=== PATIENT | female | born 1955 | race Caucasian/White ===

== ENCOUNTER → 2024-01-28 11:37 | Outpatient (REF) | payer MEDICARE, SELFPAY | LOC: PAVMRI 11:37 | PROVIDERS: ATTENDING PHYSICIAN Internal Medicine Endocrinology, Diabetes & Metabolism; FAMILY PHYSICIAN Family Medicine | DX: E22.1 Hyperprolactinemia (principal); E23.7 Disorder of pituitary gland, unspecified | CPT/HCPCS: 70553; A9575 ==

== ENCOUNTER 2024-09-12 12:31 | Inpatient (IN) | payer MEDICARE, SELFPAY ==
[2024-09-12] VITALS (17 sets, daily range): BP systolic 87–147; BP diastolic 29–58; BMI 28.6; BMI 27.5
--- NOTE | 2024-09-12 08:58 | ED.GENMED ---
History of Present Illness
<Mirta Bradshaw, HEALTH CARE SPECIALIST - Last Filed: 09/13/24 11:42>
General
Chief Complaint: Change in Mental Status
Source: patient, spouse and ambulance crew
Exam Limitations: altered mental status
Time Seen by Provider: 09/12/24 08:57
Nursing documentation reviewed up to this point in time: agreed with
History of Present Illness
History of Present Illness:
69 yo female arrives via EMS, lethargic, confused. Per , went to bed 'fine' last night, this a.m. 6:30 tried to wake her unsuccessfully so he let her sleep, went back a little later, she was difficult to arouse nd she was breathing
faster than usual, felt warm, was confused so her called EMS. She responds to name, follows commands weakly, states 'I don't know' asked if she knows where she is and month, year 'no'
Pt had Covid vaccine within past 48 hours. Had Flu vaccine earlier
EKG sinus tachycardia,
Past History
<Mirta Bradshaw, HEALTH CARE SPECIALIST - Last Filed: 09/13/24 11:42>
Past History
ED Past Medical History: HTN, Hypercholesterolemia and NIDDM
ED Past Surgical History: Other (Skin excision)
Social History
Tobacco: Smoker
Alcohol: None
Drug: None
Personal:
Living: with family
Employment: Retired
Family History
Family History: Other (Noncontributory)
Review of Systems
<Mirta Bradshaw, HEALTH CARE SPECIALIST - Last Filed: 09/13/24 11:42>
Review of Systems
Allergies reviewed?: Yes
All Other Systems: ROS reviewed and negative except as documented in HPI and ROS
Constitutional: Reports fever
EENT: Reports no symptoms
Respiratory: Reports no symptoms
Cardiac: Reports no symptoms
ABD/GI: Reports vomiting; Denies abdominal pain
: Reports incontinence
Musculoskeletal: Reports no symptoms; Denies edema
Skin: Reports no symptoms
Neurological: Reports weakness
Phy Exam
<Mirta Bradshaw, HEALTH CARE SPECIALIST - Last Filed: 09/13/24 11:42>
Physical Exam
Physical Exam:
GENERAL: No acute distress. A&Ox3.
CONSTITUTIONAL: Afebrile.
EYES: PERRL, conjunctivae normal
Neck: Supple
ENMT: dry mucus membranes,
RESPIRATORY: Regular respirations, nonlabored, lungs clear.
CARDIOVASCULAR: Regular rate and rhythm, no murmurs, no rubs.
GI: Soft, nontender, normal BS
MUSCULOSKELETAL: Moves with ease. Well perfused. No edema
SKIN: Warm, dry, pink
PSYCH: Depressed mood and affect. Well kept, interactive and appropriate
NEUROLOGIC: Awake, lethargic. Follows commands weakly. Strength equal throughout 2/5. No focal neurological deficits
Sepsis
<Mirta Bradshaw, HEALTH CARE SPECIALIST - Last Filed: 09/13/24 11:42>
Sepsis Screening
Sepsis Assessment: Sepsis
Sepsis Screen
Sepsis Screen: Sepsis
Date: 09/13/24
Time: 11:42
Course
<Mirta Bradshaw, HEALTH CARE SPECIALIST - Last Filed: 09/13/24 11:42>
Orders/Labs/Results
Orders:
Orders
09/12/24 09:00
Straight cath- Treatment ONCE
09/12/24 09:01
Electrocardiogram (*1) Urgent
Reason for Study: Other
Other Reason for Exam: sepsis
EKG- Treatment ONCE
IV Insert/Care/Rem.- Treatment PRN
CR Chest Portable - 1 View Urgent
Comment:
Reason For Exam: change in mental state
Reason Study Needs to be Portable: Patient Unstable
09/12/24 09:08
Complete Blood Count/With Diff Urgent
Comprehensive Metabolic Panel Urgent
Lactic Acid Q4H
Comment: CANCEL 2nd LACTIC ACID IF 1st LACTIC ACID IS LESS THAN 2
Magnesium Urgent
Comment: ADDON
Blood Culture Q30M
FRANCIA Source: Blood/Venous
Specimen Description:
Acetaminophen [Tylenol/Feverall] 650 mg RECTAL NOW STA
09/12/24 09:09
0.9% Sodium Chloride 1000 ml [Nss] 1,600 ml IV NOW STA
09/12/24 09:12
Free T4 Urgent
TSH Reflex To Free T4 Urgent
Blood Culture Q30M
FRANCIA Source: Blood/Venous
Specimen Description:
09/12/24 09:35
COVID-19 Antigen Urgent
Source: Nasal Swab
Urinalysis Reflex To Culture Urgent
Date Specimen was Collected: 09/12/24
Time Specimen was Collected: 09:30
Influenza A+B Rapid Molecular Urgent
FRANCIA Source: Nasal Swab
Specimen Description:
09/12/24 09:42
Add On- LAB Urgent
Tests Added?: magnesium
09/12/24 10:19
0.9% Sodium Chloride 1000 ml [Nss] 1,000 ml IV BOLUS
Piperacillin/Tazo 4.5 Gram [Zosyn] 4.5 gram in 100 ml IV NOW
09/12/24 10:23
CT Chest W/o Iv Contrast Urgent
Comment:
Reason For Exam: febrile, tachypneic
09/12/24 10:55
Vancomycin [Vancocin] 2,000 mg 0.9% Sodium Chloride 500 ml [Nss] 500 ml IV NOW
09/12/24 12:10
Admit/Transfer Patient As Directed
Co-Sign Provider:
Level of Care: Inpatient admission
Assign to:: IMU- Intermediate Care
Physician / Group: Dr Thayer
Diagnosis: Sepsis
Reason for Hospitalization: Patient presented with altered mental status and fever and nausea vomiting and
diarrhea. Found to be hypotensive and increased lactate.
Expected length of stay greater than two midnights?: Yes
ELOS- Estimated Length of Stay in days: 2
I certify the patient meets the requirements for IP care: Yes
PRN Pain Medication Management As Directed
May give lesser potent ordered pain med per pt: Yes
preference::
Protocol:: Medication orders for pain may be administered in a
manner that supports deferring to patient preference
when the pt is:
- Requesting an ordered lesser potent pain medication.
Least to most potent pain medications are defined
as: acetaminophen < NSAID < tramadol < opioids
(morphine, oxycodone, hydromorphone).
- Requesting a lesser dose of the same medication IF
ORDERED.
- Requesting a less intrusive route of administration
if both routes are prescribed by the provider (PO <
IV).
09/12/24 12:13
Code Status As Directed
Resuscitation Status: Full Code
09/12/24 12:16
STOOL [C difficile Antigen & Toxins] Routine
FRANCIA Source: Feces/Stool
Specimen Description:
Stool Culture Routine
FRANCIA Source: Feces/Stool
Specimen Description:
Stool For WBC Routine
FRANCIA Source: Feces/Stool
Specimen Description:
0.9% Sodium Chloride 1000 ml [Nss] 1,000 ml IV BOLUS
09/12/24 12:17
CT Abd/pelvis Wo Iv Cont Routine
Comment:
Reason For Exam: n/v/d/abd pain
STOOL [C difficile Antigen & Toxins] Urgent
FRANCIA Source: Feces/Stool
Specimen Description:
Date Specimen was Collected: 09/12/24
Time Specimen was Collected: 12:16
Stool Culture Urgent
FRANCIA Source: Feces/Stool
Specimen Description:
Date Specimen was Collected: 09/12/24
Time Specimen was Collected: 12:16
11/09/24 12:56
Lactic Acid Q4H
Comment: CANCEL 2nd LACTIC ACID IF 1st LACTIC ACID IS LESS THAN 2
09/12/24 13:08
Docusate W/Senna [Senokot-S] 1 tablet PO BIDPRN PRN
Ipratropium/Albuterol Sulfate [Duoneb] 3 ml INH R Q4HPRN PRN
Lactated Ringers [Lr] 1,000 ml IV 100 mls/hr
Ondansetron Injectable [Zofran] 4 mg IV Q6HPRN PRN
09/12/24 13:08
Activity As Directed
Activity Level: Out of Bed-Early Mobility
Intake/ Output As Directed
Frequency: Per unit guidelines
Vital Signs As Directed
Frequency: Per unit guidelines
Weight As Directed
Frequency: Daily
DX Deep Vein Thrombosis Video Routine
09/12/24 14:00
MetroNIDAZOLE 500 MG/100 ML [Flagyl 500 mg] 100 ml IV Q8H
09/12/24 16:00
CefTRIAXone [Rocephin] 1,000 mg IV Q24H
09/12/24 18:00
Enoxaparin Sodium [Lovenox] 40 mg SC QPM
09/13/24 04:19
Complete Blood Count/With Diff IN AM
Comprehensive Metabolic Panel IN AM
Magnesium IN AM
TSH IN AM
Abnormal Lab Results
09/12/24 09/12/24
09:08 09:12
RBC 3.58 L 10^6/uL
(4.20-5.40)
MCV 105.3 H fL
(81.0-99.0)
MCH 37.7 H pg
(27.0-31.0)
MPV 10.8 H fL
(7.4-10.4)
Absolute Monos (auto) 1.1 H 10^3/uL
(0.1-0.6)
Monocytes % 10.8 H %
(1.7-9.3)
Chloride 97 L mmol/L
(98-107)
BUN 20 H mg/dl
(7-17)
Glucose 124 H mg/dl
(70-99)
Lactic Acid 3.9 H mmol/L
(0.7-2.0)
TSH (Reflex) 0.07 L uIU/ml
(0.47-4.68)
Free T4 0.70 L ng/dl
(0.78-2.19)
09/12/24 09:08
09/12/24 09:08
Vital Signs
Initial and Last Documented VS:
Initial Vital Signs
Temp Pulse Resp BP Pulse Ox
101.5 F H 108 34 131/52 95
09/12/24 09:03 09/12/24 09:03 09/12/24 09:03 09/12/24 09:03 09/12/24 09:03
Last Documented Vital Signs
Temp Pulse Resp BP Pulse Ox
98.5 F 85 20 121/65 97
09/13/24 08:20 09/13/24 10:03 09/13/24 10:03 09/13/24 10:03 09/13/24 10:03
<Ivis Saba MD - Last Filed: 09/12/24 10:27>
Orders/Labs/Results
Orders:
Orders
09/12/24 09:00
Straight cath- Treatment ONCE
09/12/24 09:01
Electrocardiogram (*1) Urgent
Reason for Study: Other
Other Reason for Exam: sepsis
EKG- Treatment ONCE
IV Insert/Care/Rem.- Treatment PRN
CR Chest Portable - 1 View Urgent
Comment:
Reason For Exam: change in mental state
Reason Study Needs to be Portable: Patient Unstable
09/12/24 09:08
Complete Blood Count/With Diff Urgent
Comprehensive Metabolic Panel Urgent
Lactic Acid Q4H
Comment: CANCEL 2nd LACTIC ACID IF 1st LACTIC ACID IS LESS THAN 2
Magnesium Urgent
Comment: ADDON
Blood Culture Q30M
FRANCIA Source: Blood/Venous
Specimen Description:
Acetaminophen [Tylenol/Feverall] 650 mg RECTAL NOW STA
09/12/24 09:09
0.9% Sodium Chloride 1000 ml [Nss] 1,600 ml IV NOW STA
09/12/24 09:12
Free T4 Urgent
TSH Reflex To Free T4 Urgent
Blood Culture Q30M
FRANCIA Source: Blood/Venous
Specimen Description:
09/12/24 09:35
COVID-19 Antigen Urgent
Source: Nasal Swab
Urinalysis Reflex To Culture Urgent
Date Specimen was Collected: 09/12/24
Time Specimen was Collected: 09:30
Influenza A+B Rapid Molecular Urgent
FRANCIA Source: Nasal Swab
Specimen Description:
09/12/24 09:42
Add On- LAB Urgent
Tests Added?: magnesium
09/12/24 10:19
0.9% Sodium Chloride 1000 ml [Nss] 1,000 ml IV BOLUS
Piperacillin/Tazo 4.5 Gram [Zosyn] 4.5 gram in 100 ml IV NOW
09/12/24 10:23
CT Chest W/o Iv Contrast Urgent
Comment:
Reason For Exam: febrile, tachypneic
09/12/24 10:55
Vancomycin [Vancocin] 2,000 mg 0.9% Sodium Chloride 500 ml [Nss] 500 ml IV NOW
09/12/24 12:10
Admit/Transfer Patient As Directed
Co-Sign Provider:
Level of Care: Inpatient admission
Assign to:: IMU- Intermediate Care
Physician / Group: Dr Thayer
Diagnosis: Sepsis
Reason for Hospitalization: Patient presented with altered mental status and fever and nausea vomiting and
diarrhea. Found to be hypotensive and increased lactate.
Expected length of stay greater than two midnights?: Yes
ELOS- Estimated Length of Stay in days: 2
I certify the patient meets the requirements for IP care: Yes
PRN Pain Medication Management As Directed
May give lesser potent ordered pain med per pt: Yes
preference::
Protocol:: Medication orders for pain may be administered in a
manner that supports deferring to patient preference
when the pt is:
- Requesting an ordered lesser potent pain medication.
Least to most potent pain medications are defined
as: acetaminophen < NSAID < tramadol < opioids
(morphine, oxycodone, hydromorphone).
- Requesting a lesser dose of the same medication IF
ORDERED.
- Requesting a less intrusive route of administration
if both routes are prescribed by the provider (PO <
IV).
09/12/24 12:13
Code Status As Directed
Resuscitation Status: Full Code
09/12/24 12:16
STOOL [C difficile Antigen & Toxins] Routine
FRANCIA Source: Feces/Stool
Specimen Description:
Stool Culture Routine
FRANCIA Source: Feces/Stool
Specimen Description:
Stool For WBC Routine
FRANCIA Source: Feces/Stool
Specimen Description:
0.9% Sodium Chloride 1000 ml [Nss] 1,000 ml IV BOLUS
09/12/24 12:17
CT Abd/pelvis Wo Iv Cont Routine
Comment:
Reason For Exam: n/v/d/abd pain
STOOL [C difficile Antigen & Toxins] Urgent
FRANCIA Source: Feces/Stool
Specimen Description:
Date Specimen was Collected: 09/12/24
Time Specimen was Collected: 12:16
Stool Culture Urgent
FRANCIA Source: Feces/Stool
Specimen Description:
Date Specimen was Collected: 09/12/24
Time Specimen was Collected: 12:16
09/12/24 12:56
Lactic Acid Q4H
Comment: CANCEL 2nd LACTIC ACID IF 1st LACTIC ACID IS LESS THAN 2
09/12/24 13:08
Docusate W/Senna [Senokot-S] 1 tablet PO BIDPRN PRN
Ipratropium/Albuterol Sulfate [Duoneb] 3 ml INH R Q4HPRN PRN
Lactated Ringers [Lr] 1,000 ml IV 100 mls/hr
Ondansetron Injectable [Zofran] 4 mg IV Q6HPRN PRN
09/12/24 13:08
Activity As Directed
Activity Level: Out of Bed-Early Mobility
Intake/ Output As Directed
Frequency: Per unit guidelines
Vital Signs As Directed
Frequency: Per unit guidelines
Weight As Directed
Frequency: Daily
DX Deep Vein Thrombosis Video Routine
09/12/24 14:00
MetroNIDAZOLE 500 MG/100 ML [Flagyl 500 mg] 100 ml IV Q8H
09/12/24 16:00
CefTRIAXone [Rocephin] 1,000 mg IV Q24H
09/12/24 18:00
Enoxaparin Sodium [Lovenox] 40 mg SC QPM
09/13/24 04:19
Complete Blood Count/With Diff IN AM
Comprehensive Metabolic Panel IN AM
Magnesium IN AM
TSH IN AM
Abnormal Lab Results
09/12/24 09/12/24
09:08 09:12
RBC 3.58 L 10^6/uL
(4.20-5.40)
MCV 105.3 H fL
(81.0-99.0)
MCH 37.7 H pg
(27.0-31.0)
MPV 10.8 H fL
(7.4-10.4)
Absolute Monos (auto) 1.1 H 10^3/uL
(0.1-0.6)
Monocytes % 10.8 H %
(1.7-9.3)
Chloride 97 L mmol/L
(98-107)
BUN 20 H mg/dl
(7-17)
Glucose 124 H mg/dl
(70-99)
Lactic Acid 3.9 H mmol/L
(0.7-2.0)
TSH (Reflex) 0.07 L uIU/ml
(0.47-4.68)
Free T4 0.70 L ng/dl
(0.78-2.19)
09/12/24 09:08
09/12/24 09:08
Vital Signs
Initial and Last Documented VS:
Initial Vital Signs
Temp Pulse Resp BP Pulse Ox
101.5 F H 108 34 131/52 95
09/12/24 09:03 09/12/24 09:03 09/12/24 09:03 09/12/24 09:03 09/12/24 09:03
Last Documented Vital Signs
Temp Pulse Resp BP Pulse Ox
98.5 F 85 20 121/65 97
09/13/24 08:20 09/13/24 10:03 09/13/24 10:03 09/13/24 10:03 09/13/24 10:03
<Mirta Bradshaw, HEALTH CARE SPECIALIST - Last Filed: 09/13/24 11:42>
MDM/Problems Addressed
Differential Diagnosis Includes:
Viral URI, Covid, Flu, UTI, PNA, meningitis
MDM/Problems Addressed:
69 yo female arrives via EMS, lethargic, confused. Reportedly went to bed 'fine' last night, this a.m. 6:30 tried to wake her unsuccessfully so he let her sleep, went back a little later, she was difficult to arouse, and she was breathing
faster than usual, felt warm, was confused so her called EMS. She responds to name, follows commands weakly, states 'I don't know' asked if she knows where she is and month, year 'no'
Pt had Covid vaccine within past 48 hours. Had Flu vaccine earlier
Temp 102.1 R RR 30 Pulse ox 96% RA
EKG: Sinus tachycardia at 102 with prolonged QTc at 573. No medications to explain. Will check magnesium level
CBC: No clinically significant abnormality
CMP: No clinically significant abnormality
Chest xray radiology report read: NAD
U/A neg
TSH low 0.07
10:20 a.m.
Pt becoming more responsive, knows she in [facility] Denies headache, neck pain, Neck supple no meningeal signs.
Lactic elevated at 3.9
BP 88/ MAP 50, HR 98 RR 28 Pulse ox 96% RA, Temp 99.7 po
Had 1800 NSS in, another liter hung wide open.
Antibiotics ordered
No source of infection yet.
Dr. Saba in to examine pt. Agrees with chest CT
11:10 a.m.
BP 90/35 RR 21 HR 85 Pulse ox 98% RA
Chest CT: IMPRESSION:
Mild bibasilar subsegmental atelectasis. No focal parenchymal consolidation to suggest pneumonia.
Pulmonary interstitium at at least top normal. Cannot exclude mild interstitial pneumonitis or edema.
Heart likely mildly enlarged. Small volume coronary artery calcifications.
Small to moderate size hiatal hernia.
Plan: Admit
Acute change in mental state, hyperthyroid, elevated lactic, bacteremia/sepsis unknown source
Hospitalist notified of admission.
2 large diarrhea stools, stool culture and C. difficile culture pending
<Mirta Bradshaw, HEALTH CARE SPECIALIST - Last Filed: 09/13/24 11:42>
*Critical Care Note
Total Time (30-74mins, 75-104mins- exclusive of procedures): Not Applicable
ED Attending Note
<Mirta Bradshaw NP - Last Filed: 09/13/24 11:42>
-
Portions of this chart may have been created with voice recognition software.� Occasional wrong word or��sound alike� substitutions may have occurred due to the inherent limitations of voice recognition software.
<Ivis Saba MD - Last Filed: 09/12/24 10:27>
ED Attending Note
Patient seen and examined by attending physician: Yes
I performed the substantive portion of visit, reviewed & personally made and approve the management plan that is documented in note by myself or SELINA.: Yes
ED Attending Note:
Patient arrives for generalized weakness and lethargy. Found to have a fever on arrival. Symptoms started this morning. Patient received 1 L of fluid and 650 mg of Tylenol before my evaluation. Patient is now awake but appears very tired and is
yawning and shutting her eyes. She appears flushed. She is hypotensive. Temperature has gone down down to 99.7. Patient has mild tachypnea. Abdomen is soft and nontender. Patient has no headache and no meningismus on exam. Source of infection
is unknown at this time. Patient recently had a COVID immunization about 48 hours ago. Chest x-ray shows no obvious pneumonia. Urine appears normal. Given patient has a fever, hypotension and elevated lactic acid, we are concern for acute sepsis
and will treat her with wide spectrum antibiotics.
Discharge Plan
Departure
Patient Disposition: Admit
Date of Disposition: 09/12/24
Time of Disposition: 11:16
Admit to: ICU
Presentation/result/management discussed w/ accepting MD/DO: Hospitalist
Condition: Serious
Covid-19: Negative COVID-19
Discharge Problem:
Sepsis, Altered mental state, Diarrhea
Interventions
Interventions:
*Risk Screen - Suicide Last Done: 09/12/24 13:26
*General Assessment Last Done: 09/12/24 09:03
*Neglect/Abuse Screening Last Done: 09/12/24 09:03
ED- Fall Risk Assessment Last Done: 09/12/24 09:48
*ED COVID-19 Vaccine History Last Done: 09/12/24 09:03
*Nursing Disposition Last Done: 09/12/24 13:26
ED- Pulmonary Assessment Last Done: 09/12/24 09:48
ED-Psychological Assessment Last Done: 09/12/24 13:26
ED- Neurological Assessment Last Done: 09/12/24 09:48
ED- Cardiac Assessment Last Done: 09/12/24 09:48
ED Swallowing Screen Last Done: 09/12/24 09:48
Discharge Date and Time
Discharge Date/Time: 09/12/24 13:15
[2024-09-12 09:20] LABS: % Basophils 1.4 % (0-2); % Eosinophils 0.1 % (0-6); % Immature Granulocytes 0.3 % (0-0.5); % Lymphocytes 23.4 % (20.5-51.1); % Monocytes 10.8 % (1.7-9.3); Absolute Basophils 0.1 10^3/uL (0-0.2); Absolute Lymphocytes 2.3 10^3/uL (1.2-3.4); Absolute Monocytes 1.1 10^3/uL (0.1-0.6); Absolute Neutrophils 6.2 10^3/uL (1.4-6.5); Hematocrit 37.7 % (37.0-47.0); Hemoglobin 13.5 g/dL (12.0-16.0); Mean Corp Hgb Conc. 35.8 g/dL (33.0-37.0); Mean Corpuscular Hgb 37.7 pg (27.0-31.0); Mean Corpuscular Volume 105.3 fL (81.0-99.0); Mean Platelet Volume 10.8 fL (7.4-10.4); Nucleated Red Blood Cells % 0 %; Platelet Count 261 10^3/uL (130-400); Red Blood Cell Count 3.58 10^6/uL (4.20-5.40); White Blood Cell Count 9.7 10^3/uL (4.8-10.8)
[2024-09-12 09:28] LABS: Lactic Acid 3.9 mmol/L (0.7-2.0)
[2024-09-12 09:30] LABS: ALT (SGPT) 23 U/L (0-35); AST (SGOT) 35 U/L (14-36); Albumin 4.2 g/dl (3.5-5.0); Alkaline Phosphatase 66 U/L (38-126); Blood Urea Nitrogen 20 mg/dl (7-17); Calcium 8.7 mg/dl (8.4-10.2); Carbon Dioxide 25 mmol/L (22-30); Chloride 97 mmol/L (98-107); Estimated Creatinine Clearance 57 ml/min; Glucose 124 mg/dl (70-99); Potassium 4.1 mmol/L (3.5-5.1); Sodium 136 mmol/L (135-145); Total Bilirubin 0.7 mg/dl (0.2-1.3); Total Protein 6.8 g/dl (6.3-8.2); eGFR > 60.00
[2024-09-12] MEDS: NSS 1600 ML IV (09:31)
[2024-09-12] MEDS: TYLENOL/FEVERALL 650 MG RECTAL (09:31)
[2024-09-12 09:47] LABS: Urine Albumin Negative (Neg - Trace); Urine Bilirubin Negative (Negative); Urine Character Clear (Clear); Urine Color Yellow; Urine Glucose Negative (Negative); Urine Ketone Negative (Negative); Urine Leukocyte Negative (Negative); Urine Nitrite Negative (Negative); Urine Occult Blood Negative (Negative); Urine Urobilinogen Negative (Neg - 1+)
[2024-09-12 10:11] LABS: COVID-19 Antigen Negative (Negative)
[2024-09-12 10:23] LABS: TSH Reflex To Free T4 0.07 uIU/ml (0.47-4.68)
[2024-09-12] MEDS: NSS 1000 IV ×2 (10:48→12:23)
[2024-09-12] MEDS: ZOSYN 100 IV (10:49)
[2024-09-12] MEDS: VANCOCIN 540 MG IV (11:42)
--- NOTE | 2024-09-12 12:22 | HPS.HSE ---
Family Physician
-
Family Physician: Kavitha Escalera
Chief Complaint
-
Mental status changes
History of Present Illness
Patient 69 years old female history of hypertension, hyperlipidemia, diabetes mellitus, adrenal insufficiency, presented to the hospital with mental status changes. Patient's noticed that she was not herself this morning around 6 AM and she
was confused and she was also labored breathing. Patient also experienced nausea and multiple episodes of vomiting and watery diarrhea as well as abdominal discomfort. She was noted to be hypotensive 87/29 in the ER and she was given septic bolus
with around 2600 cc of normal saline by the time of my evaluation and blood pressure coming up to 110/35. Patient mentation is also improving by the time of my evaluation and although she is lethargic she is awake and able to answer questions
appropriately. Patient denies any cough or shortness of breath or chest pain. Patient denies any dysuria urgency or frequency. Patient denies any skin rash. Patient is on chronic steroid use and thyroid replacement. Her lactate noticed to be
3.9. CT of the chest no focal consolidation but cannot exclude mild interstitial pneumonitis or edema. Small to moderate-sized hiatal hernia. She was referred to hospitalist service for further evaluation.
Medical History
Past Medical History
Past Medical History: Reports HTN, Hypercholesterolemia and NIDDM
Past Surgical History: Reports Other
Additional Past Surgical History:
I+D of perianal abscess 01/2019 - Dr. Ulrich.
Social History
Tobacco: Non-smoker
Alcohol: None
Drug: None
Family History
Family History: Not pertinent
Allergies / Home Medications
Allergies reflects when Allergies were last updated in [employer].
Home Medications with original date entered in [employer]
Allergy/Medication List:
Allergies
Allergy/AdvReac Type Severity Reaction Status Date / Time
No Known Allergies Allergy Verified 09/12/24 09:02
Home Medications
multivitamin (One Daily Essential tablet) 1 ea PO DAILY Supplement 01/24/19
metoprolol succinate 25 mg tablet,extended release 24 hr 25 mg PO DAILY Blood pressure 05/26/22
furosemide 20 mg tablet 20 mg PO DAILY Fluid retention/Swelling 03/04/23
hydrocortisone 10 mg tablet 20 mg PO DAILY Anti-inflammatory 03/04/23
rosuvastatin 5 mg tablet (Crestor) 5 mg PO QPM 09/12/24
Review of Systems
-
A 12 point ROS was completed and negative except as noted: Yes
Physical Exam
Vital Signs
Vital Signs
Temp Pulse Resp BP Pulse Ox
99.7 F 88 23 110/35 97
09/12/24 10:31 09/12/24 11:45 09/12/24 11:45 09/12/24 11:45 09/12/24 11:45
Physical exam:
General: Acutely ill. Toxic appearance
HEENT: Normocephalic, Atraumatic and Dry Mucous Membranes
Respiratory: Clear to Auscultation; Negative Wheezes, Rales or Rhonchi
Cardiac: Regular Rhythm and S1/S2
GI: Soft, hyperactive bowel sounds, tender and Nondistended
Musculoskeletal: No Clubbing, No Cyanosis and mild trace edema
Neuro: Lethargic, does move spontaneously all 4 extremities although generalized weakness present, no sensory deficits.
Psych: Calm, normal judgment and insight.
Physical Exam
General: Other
Laboratory Results
-
09/12/24 09:08
09/12/24 09:08
Laboratory Results
Lactic Acid 3.9 mmol/L (0.7-2.0) H 09/12/24 09:08
Total Bilirubin 0.7 mg/dl (0.2-1.3) 09/12/24 09:08
AST 35 U/L (14-36) 09/12/24 09:08
ALT 23 U/L (0-35) 09/12/24 09:08
Alkaline Phosphatase 66 U/L (38-126) 09/12/24 09:08
Data Reviewed
-
Diagnostic Radiology: Image Personally Visualized and interpreted
CT Scan: Image Personally Visualized and interpreted
Lab Data: Labs Reviewed by me
Impression/Plan
-
IMPRESSION:
Patient is 69 years old female with history of hypertension, hyperlipidemia, diabetes mellitus, adrenal insufficiency, presented to the hospital with severe sepsis suspected GI etiology such as gastro-enterocolitis infectious etiology. She also has
some element of adrenal crisis. She is at high risk of increased morbidity mortality and she is currently critically ill so she will need to be treated and monitored accordingly as inpatient in the hospital.
PLAN:
Sepsis:
Severe sepsis unclear source, suspected GI etiology.
Evidence of sepsis with toxic appearance, fever more than 38.3 Celsius, tachycardia >90, tachypnea >20, and source of infection not entirely identified but suspected likely GI etiology.
Meets criteria for severe sepsis and associated organ dysfunction of hypotension, increased lactate and metabolic encephalopathy due to sepsis.
Lactic acid of 3.9
Follow-up blood cultures
CXR no acute chest pathology
U/A no acute abnormalities
Seen CT scan of the chest and chest x-ray and no acute chest pathology but agree with nonspecific mild interstitial changes.
Obtain CT scan of the abdomen
Obtain stool studies
Obtain C. difficile
Continue on broad-spectrum antibiotics but will switch to IV Rocephin and Flagyl
Will give another bolus of normal saline 1 L and will continue with lactated Morrill
Will start her on IV PPI
We will start her on IV antiemetics as needed
Continue monitor WBC count and temperature curve and trend lactate.
Toxic metabolic encephalopathy:
Suspected due to sepsis
Monitor mental status and behavior
Hold off on head images for now and reevaluate
Adrenal crisis:
Stress doses of IV steroids, hydrocortisone 100 mg IV every 8 hours
Ideally we will check cortisol levels but not accurate since she is taking steroids
Hypothyroidism:
Thyroid function levels also inaccurate but will reevaluate in a.m.
Alcohol use disorder:
As per she drinks a bottle of alcohol every day
As per patient she does not withdrawal
Will have her MSA protocol
Will also start her on thiamine folate and benzos as needed
Nicotine use disorder:
Start nicotine patch
Hypertension:
Hold off on antihypertensives for now and reevaluate once hemodynamically stable
Hyperlipidemia:
Hold off on statins while hypotensive and repeat LFTs in a.m.
Diabetes mellitus:
Insulin sliding scale every 6 hours while NPO and while on steroids
Monitor blood sugars closely
DVT prophylaxis:
Lovenox
CODE STATUS:
Full code discussed with patient and at bedside
Total Critical Care Time 65 minutes. I was immediately available to the patient and staff. I personally examined, reviewed labs, diagnostic images/reports, interpretations, treatment plans, discussed patient care with other providers and family
or caregivers (if patient is unable to make decisions), entered orders as appropriate and documented the medical record.
[2024-09-12 13:21] LABS: Lactic Acid 2.3 mmol/L (0.7-2.0)
[2024-09-12] MEDS: THIAMINE INJECTION 200 MG IV ×2 (14:06→20:56)
[2024-09-12] MEDS: FLAGYL 500 MG 100 IV ×2 (14:07→21:01)
[2024-09-12] MEDS: SOLU-CORTEF 100 MG IV ×2 (14:07→20:56)
[2024-09-12] MEDS: PROTONIX IV 40 MG IV (14:08)
[2024-09-12] MEDS: LR 1000 IV ×2 (14:08→23:51)
[2024-09-12] MEDS: NSS (PRESERVATIVE FREE) 10 ML IV (14:08)
[2024-09-12] MEDS: FOLVITE PO (14:21)
[2024-09-12 16:02] LABS: Magnesium 1.9 mg/dl (1.6-2.3)
[2024-09-12] MEDS: STERILE WATER FOR INJECTION 10 ML IV (16:26)
[2024-09-12] MEDS: ROCEPHIN 1000 MG IV (16:26)
[2024-09-12] MEDS: LOVENOX 40 MG SC (18:25)
[2024-09-12] MEDS: NOVOLOG FLEXPEN-MODERATE RESISTANCE SC (18:26)
[2024-09-12 18:37] LABS: Glucose - Point of Care 142 mg/dl (70-99)
[2024-09-12] MEDS: NOVOLOG FLEXPEN-MODERATE RESISTANCE 1 UNITS SC (23:50)
[2024-09-13] VITALS (15 sets, daily range): BP systolic 110–166; BP diastolic 57–96; PULSE 90–91; O2SAT 95–96; BMI 27.7
[2024-09-13 00:02] LABS: Glucose - Point of Care 157 mg/dl (70-99)
[2024-09-13 04:39] LABS: Hematocrit 33.8 % (37.0-47.0); Hemoglobin 11.8 g/dL (12.0-16.0); Mean Corp Hgb Conc. 34.9 g/dL (33.0-37.0); Mean Corpuscular Hgb 37.7 pg (27.0-31.0); Mean Platelet Volume 10.8 fL (7.4-10.4); Platelet Count 203 10^3/uL (130-400); Red Blood Cell Count 3.13 10^6/uL (4.20-5.40); Red Cell Dist. Width 12.8 % (11.5-14.5); White Blood Cell Count 11.2 10^3/uL (4.8-10.8)
[2024-09-13 04:40] LABS: ALT (SGPT) 21 U/L (0-35); AST (SGOT) 28 U/L (14-36); Albumin 3.2 g/dl (3.5-5.0); Alkaline Phosphatase 65 U/L (38-126); Blood Urea Nitrogen 11 mg/dl (7-17); Carbon Dioxide 21 mmol/L (22-30); Chloride 111 mmol/L (98-107); Direct Bilirubin 0.1 mg/dl (0.0-0.4); Estimated Creatinine Clearance 87 ml/min; Glucose 143 mg/dl (70-99); Magnesium 1.9 mg/dl (1.6-2.3); Sodium 142 mmol/L (135-145); Total Bilirubin 0.5 mg/dl (0.2-1.3); Total Protein 5.7 g/dl (6.3-8.2); eGFR > 60.00
[2024-09-13 04:41] LABS: Lactic Acid 1.3 mmol/L (0.7-2.0)
[2024-09-13] MEDS: FLAGYL 500 MG 100 IV ×3 (05:04→21:12)
[2024-09-13] MEDS: SOLU-CORTEF 100 MG IV (05:04)
[2024-09-13 05:11] LABS: TSH 0.03 uIU/ml (0.47-4.68)
--- NOTE | 2024-09-13 05:44 | PTCARENOTE ---
Assumed care of Pt at shift change; Resting comfortably in bed; AAO x 2, disoriented to time; Afebrile; Denies pain; Denies nausea; NPO; Several loose BM's; Noted rash in lower abdominal/groin area - Calazime applied. Will continue to monitor
and assess
[2024-09-13] MEDS: NOVOLOG FLEXPEN-MODERATE RESISTANCE 1 UNITS SC ×3 (06:04→17:52)
[2024-09-13 06:13] LABS: Glucose - Point of Care 160 mg/dl (70-99)
--- NOTE | 2024-09-13 08:02 | W.PN.HOSP.TC ---
Today's Communication/Plan
-
IV antibiotics. Start diet.
Assessment / Plan
Assessment / Plan
Physical exam:
General: Acutely ill. Nontoxic appearance today.
HEENT: Normocephalic, Atraumatic and Moist Mucous Membranes
Respiratory: Clear to Auscultation; Negative Wheezes, Rales or Rhonchi
Cardiac: Regular Rhythm and S1/S2, Systolic murmur present
GI: Soft, Nontender and Nondistended
Musculoskeletal: No Clubbing, No Cyanosis and No Edema
Neuro: Awake, Alert and Oriented
Psych: Calm
A/P:
Sepsis due to infectious enteritis:
Continue antibiotics, IV Rocephin and Flagyl
C. difficile negative and stool culture pending
Seen CT scan of the abdomen consistent with enteritis.
Start clear liquid diet and advance as tolerated today to BRAT diet
Continue IV fluids but stop later today if remains hemodynamically stable
Lactate down to normal, 1.3
Follow-up blood cultures
PT OT eval
Toxic metabolic encephalopathy:
Improving
Adrenal crisis:
Improved
Stress doses of IV steroids, hydrocortisone 100 mg IV every 8 hours--> decreased to 50 mg every 8 hours today and will switch to oral tomorrow
Central hypothyroidism:
Restart levothyroxine 75 mcg p.o. daily
Alcohol use disorder:
MSA protocol
Nicotine use disorder:
Continue nicotine patch
Hypertension:
Will restart beta-blockers today with holding parameters
Hyperlipidemia:
Restart statins today
LFTs normal
Hyperglycemia likely due to stress and steroids (no diabetes mellitus):
Hemoglobin A1c 4.8
Continue insulin sliding scale for today and might be able to discontinue once we switch back to her oral steroids
DVT prophylaxis:
Lovenox
CODE STATUS:
Full code
Anticipated Discharge: 24 - 48 hours
Subjective/Interval History
-
Date of Service: September 13, 2024
Patient feels better overall today. More alert. No nausea or vomiting. Less diarrhea. No abdominal pain. Afebrile. Blood pressure improved.
Objective Data
-
Labs:
Laboratory Results
09/13/24
04:19
WBC 11.2 H
Hgb 11.8 L
Hct 33.8 L
Plt Count 203 D
Sodium 142
Potassium 4.0
Chloride 111 H
Carbon Dioxide 21 L
BUN 11
Creatinine 0.6
Glucose 143 H
Calcium 8.0 L
Total Bilirubin 0.5
AST 28
ALT 21
Alkaline Phosphatase 65
Vital Signs:
Vital Signs
Temp Pulse Resp BP Pulse Ox
98.3 F 87 22 110/75 96
09/13/24 03:17 09/13/24 04:00 09/13/24 04:00 09/13/24 04:00 09/13/24 04:00
I&O
09/12/24 09/13/24 09/14/24
06:59 06:59 06:59
Intake Total 4050 / 4050
Output Total 300 / 300
Balance 3750 / 3750
[2024-09-13 08:08] LABS: Absolute Neutrophils -Man Diff 9.6 10^3/uL (1.4-6.5); Atypical Lymphocytes 1 %; Band Neutrophils 10 % (0-3); Lymphocytes 9 % (20-51); Metamyelocytes 2 % (-); Monocytes 2 % (2-9); Segmented Neutrophils 76 % (42-75)
[2024-09-13 08:09] LABS: Normal RBC Morphology Yes; Platelets Checked Yes; Total Cells Counted 100
[2024-09-13] MEDS: LR 1000 IV (09:14)
[2024-09-13] MEDS: THIAMINE INJECTION 200 MG IV ×2 (09:15→21:12)
[2024-09-13] MEDS: FOLVITE 1 MG PO (09:15)
[2024-09-13] MEDS: PROTONIX IV 40 MG IV (09:15)
[2024-09-13] MEDS: NSS (PRESERVATIVE FREE) 10 ML IV (09:15)
[2024-09-13 09:25] LABS: Glycohemoglobin (HgbA1c) 4.8 % (4.0-5.6)
[2024-09-13] MEDS: SYNTHROID 75 MCG PO (11:11)
[2024-09-13] MEDS: SOLU-CORTEF 50 MG IV ×2 (11:11→21:12)
[2024-09-13] MEDS: TOPROL XL 25 MG PO (11:12)
[2024-09-13 12:29] LABS: Glucose - Point of Care 187 mg/dl (70-99)
[2024-09-13] MEDS: STERILE WATER FOR INJECTION 10 ML IV (16:58)
[2024-09-13] MEDS: CRESTOR 5 MG PO (16:59)
[2024-09-13] MEDS: ROCEPHIN 1000 MG IV (16:59)
[2024-09-13] MEDS: LOVENOX 40 MG SC (16:59)
[2024-09-13 17:49] LABS: Glucose - Point of Care 173 mg/dl (70-99)
[2024-09-13 22:18] LABS: Glucose - Point of Care 138 mg/dl (70-99)
[2024-09-14] VITALS (18 sets, daily range): BP systolic 110–198; BP diastolic 49–133; PULSE 58; O2SAT 97; BMI 28.0
[2024-09-14] MEDS: FLAGYL 500 MG 100 IV ×3 (05:18→20:43)
[2024-09-14] MEDS: SYNTHROID 75 MCG PO (05:18)
--- NOTE | 2024-09-14 05:24 | W.PN.HOSP.TC ---
Today's Communication/Plan
-
cont abx
hydralazine prn
replete potassium
diet advanced to regular
maalox prn
PT/OT
Assessment / Plan
Assessment / Plan
Physical exam:
General: no acute distress, appears comfortable
HEENT: Normocephalic, Atraumatic and Moist Mucous Membranes
Respiratory: Clear to Auscultation; Negative Wheezes, Rales or Rhonchi
Cardiac: Regular Rhythm and S1/S2, Systolic murmur present
GI: Soft, Nontender and Nondistended
Musculoskeletal: No Clubbing, No Cyanosis and No Edema
Neuro: Awake, Alert and Oriented
Psych: Calm
A/P:
Sepsis due to infectious enteritis:
Continue antibiotics, IV Rocephin and Flagyl
C. difficile negative
E coli Shiga toxin detected
CT scan of the abdomen consistent with infectious enteritis.
Diet advanced to Regular
IVF completed
Lactic acidosis resolved
Follow-up blood cultures NGTD
PT OT eval apppreciated home services
Toxic metabolic encephalopathy resolved
Adrenal crisis:
Improved
Stress doses of IV steroids, hydrocortisone 100 mg IV every 8 hours--> decreased to 50 mg every 8 hours, transitioned back to home dose hydrocortisone 20 mg daily
Central hypothyroidism:
cont home levothyroxine 75 mcg p.o. daily
Alcohol use disorder:
MSAS protocol
Nicotine use disorder:
Continue nicotine patch
Hypertension:
cont home metoprolol and Lasix
Hydralazine PRN
Hyperlipidemia:
cont statins
LFTs normal
Hyperglycemia likely due to stress and steroids (no diabetes mellitus):
Hemoglobin A1c 4.8
cont sliding scale
Hypokalemia
monitor and replete as necessary
DVT prophylaxis:
Lovenox
CODE STATUS:
Full code
discussed with patient and patient's Gabriele
I spent a total of 50 minutes with the patient or on the floor. More than 50% of this time involved counseling and coordination of care.
Anticipated Discharge: 24 - 48 hours
Subjective/Interval History
-
Date of Service: September 14, 2024
no acute distress sitting up comfortably in bed. Endorses frequent diarrhea. Denies abd pain. Reports poor appetite.
Objective Data
-
Labs:
Laboratory Results
09/14/24
05:11
WBC Pending
Hgb Pending
Hct Pending
Plt Count Pending
Sodium Pending
Potassium Pending
Chloride Pending
Carbon Dioxide Pending
BUN Pending
Creatinine Pending
Glucose Pending
Calcium Pending
Vital Signs:
Vital Signs
Temp Pulse Resp BP Pulse Ox
98.9 F 81 21 159/67 96
09/14/24 03:06 09/13/24 22:01 09/13/24 22:01 09/13/24 22:01 09/13/24 23:18
I&O
09/12/24 09/13/24 09/14/24
06:59 06:59 06:59
Intake Total 4050 / 4050
Output Total 300 / 300
Balance 3750 / 3750
[2024-09-14 05:25] LABS: % Basophils 0.4 % (0-2); % Eosinophils 0.7 % (0-6); % Immature Granulocytes 0.6 % (0-0.5); % Lymphocytes 25.6 % (20.5-51.1); % Monocytes 5.9 % (1.7-9.3); % Neutrophils 66.8 % (42.2-75.2); Absolute Eosinophils 0.1 10^3/uL (0-0.7); Absolute Immature Granulocytes 0.1 10^3/uL (0-0.05); Absolute Lymphocytes 2.1 10^3/uL (1.2-3.4); Absolute Monocytes 0.5 10^3/uL (0.1-0.6); Absolute Neutrophils 5.5 10^3/uL (1.4-6.5); Hematocrit 28.3 % (37.0-47.0); Hemoglobin 9.9 g/dL (12.0-16.0); Mean Corpuscular Hgb 37.9 pg (27.0-31.0); Mean Corpuscular Volume 108.4 fL (81.0-99.0); Nucleated Red Blood Cells % 0 %; Platelet Count 178 10^3/uL (130-400); Red Blood Cell Count 2.61 10^6/uL (4.20-5.40); Red Cell Dist. Width 13.2 % (11.5-14.5); White Blood Cell Count 8.2 10^3/uL (4.8-10.8)
[2024-09-14 05:49] LABS: Blood Urea Nitrogen 9 mg/dl (7-17); Calcium 8.5 mg/dl (8.4-10.2); Carbon Dioxide 19 mmol/L (22-30); Chloride 113 mmol/L (98-107); Estimated Creatinine Clearance 88 ml/min; Glucose 116 mg/dl (70-99); Potassium 3.4 mmol/L (3.5-5.1); Sodium 142 mmol/L (135-145); eGFR > 60.00
[2024-09-14 08:25] LABS: Glucose - Point of Care 99 mg/dl (70-99)
[2024-09-14] MEDS: THIAMINE INJECTION 200 MG IV ×2 (08:44→20:42)
[2024-09-14] MEDS: FOLVITE 1 MG PO (08:45)
[2024-09-14] MEDS: PROTONIX 40 MG PO (08:45)
[2024-09-14] MEDS: CORTEF 20 MG PO (08:45)
[2024-09-14] MEDS: TOPROL XL 25 MG PO (08:45)
[2024-09-14] MEDS: LASIX 20 MG PO (08:45)
[2024-09-14] MEDS: NOVOLOG FLEXPEN-MODERATE RESISTANCE SC ×3 (09:37→18:22)
[2024-09-14] MEDS: KCL 40 MEQ PO (11:06)
[2024-09-14 11:10] LABS: TSH Reflex To Free T4 < 0.02 uIU/ml (0.47-4.68)
[2024-09-14 11:39] LABS: Free T4 0.81 ng/dl (0.78-2.19)
[2024-09-14 11:58] LABS: Glucose - Point of Care 145 mg/dl (70-99)
[2024-09-14] MEDS: MAALOX 30 ML PO (14:48)
--- NOTE | 2024-09-14 16:15 | PTCARENOTE ---
Addendum entered by Cherry Ferraro 09/14/24 16:42:
Dr. Claudio at bedside. Order received for PRN Hydralazine. Administered as ordered, see MAR.
Original Note:
Pts BP trending up, hypertensive with sbp in the 160-190's. Dr. Claudio notified via TT. No further orders received at this time.
[2024-09-14] MEDS: STERILE WATER FOR INJECTION 10 ML IV (16:38)
[2024-09-14] MEDS: APRESOLINE 5 MG IV ×2 (16:38→20:42)
[2024-09-14] MEDS: ROCEPHIN 1000 MG IV (16:38)
--- NOTE | 2024-09-14 16:44 | CM ---
Patient with Dx Sepsis due to infectious enteritis, TME, adrenal crisis, Etoh Use disorder. Room air. Receiving IV Abx, IV Thiamine, IV Folic Acid. MSAS 0 per nursing. PT recommends HH. OT recommends HH vs skilled.
Met with patient and Gabriele;
the patient resides with her in a 2 story house with 1 SHAR.
The patient has been independent in ADLs and ambulation.
She states she is not very active but she does go out to shop and drives.
DME - [facility]
No prior VN or SNF.
PCP - Kavitha Escalera
Pharmacy - [facility]
Offered VN for PT/OT and patient is unsure she would want, however feels it's a good idea. Patient wishes to wait and see if she progresses in her mobility and will then decide.
Plan offer VN when closer to d/c.
Plan home.
[2024-09-14 16:53] LABS: Glucose - Point of Care 107 mg/dl (70-99)
[2024-09-14] MEDS: ATIVAN 0.5 MG IV (17:12)
[2024-09-14] MEDS: CRESTOR 5 MG PO (17:14)
[2024-09-14] MEDS: LOVENOX 40 MG SC (17:14)
--- NOTE | 2024-09-14 18:08 | PTCARENOTE ---
Pt incontinent of multiple liquid bowel movements. D/w pt, pt agreeable to try rectal trumpet in order to protect skin. Trumpet placed, immediate output of approx 200ml.
--- NOTE | 2024-09-14 21:30 | PTCARENOTE ---
Received pt from day shift. ox3 and drowsy, MSAS zero. Pt's bp 178/64. Notified MALIK Gamez and received Rx; medication administered (see MAR). Pt inc of bowel and bladder. Hygiene completed. Pt resting in bed with call chew in reach.
[2024-09-14 22:02] LABS: Glucose - Point of Care 92 mg/dl (70-99)
[2024-09-15] VITALS (14 sets, daily range): BP systolic 123–178; BP diastolic 45–97; BMI 27.0
[2024-09-15] MEDS: SYNTHROID 75 MCG PO (05:02)
[2024-09-15] MEDS: APRESOLINE 5 MG IV (05:03)
[2024-09-15] MEDS: FLAGYL 500 MG 100 IV (05:03)
[2024-09-15 05:59] LABS: Hematocrit 31.6 % (37.0-47.0); Hemoglobin 11.5 g/dL (12.0-16.0); Mean Corp Hgb Conc. 36.4 g/dL (33.0-37.0); Mean Corpuscular Hgb 37.6 pg (27.0-31.0); Mean Corpuscular Volume 103.3 fL (81.0-99.0); Red Blood Cell Count 3.06 10^6/uL (4.20-5.40); Red Cell Dist. Width 12.9 % (11.5-14.5); White Blood Cell Count 8.9 10^3/uL (4.8-10.8)
[2024-09-15 06:00] LABS: Blood Urea Nitrogen 8 mg/dl (7-17); Calcium 8.3 mg/dl (8.4-10.2); Carbon Dioxide 22 mmol/L (22-30); Chloride 109 mmol/L (98-107); Estimated Creatinine Clearance 77 ml/min; Glucose 81 mg/dl (70-99); Magnesium 1.8 mg/dl (1.6-2.3); Phosphorus 2.2 mg/dl (2.5-4.5); Potassium 3.3 mmol/L (3.5-5.1); eGFR > 60.00
[2024-09-15 06:11] LABS: Sodium 141 mmol/L (135-145)
[2024-09-15] MEDS: DUONEB 3 ML INH (06:18)
--- NOTE | 2024-09-15 06:31 | PTCARENOTE ---
Pt c/o SOB. 98% on RA. Reached out to respiratory and pt received PRN neb treatment. Pt states she is now 'feeling a little better'
[2024-09-15] MEDS: KCL 40 MEQ PO (06:40)
--- NOTE | 2024-09-15 07:53 | W.PN.HOSP.TC ---
Today's Communication/Plan
-
remains stable for downgrade
low dose amlodipine started for BP control
PT/OT
Replete Potassium Phos
Assessment / Plan
Assessment / Plan
Physical exam:
General: no acute distress, appears mildly uncomfortable
HEENT: Normocephalic, Atraumatic and Moist Mucous Membranes
Respiratory: Clear to Auscultation; Negative Wheezes, Rales or Rhonchi
Cardiac: Regular Rhythm and S1/S2, Systolic murmur present
GI: Soft, Nontender and Nondistended
Musculoskeletal: No Clubbing, No Cyanosis and No Edema
Neuro: Awake, Alert and Oriented
Psych: Calm
A/P:
Sepsis due to infectious enteritis:
C. difficile negative
E coli Shiga toxin detected
CT scan of the abdomen consistent with infectious enteritis.
Diet advanced to Regular
IVF completed
Lactic acidosis resolved
Follow-up blood cultures NGTD
PT OT eval apppreciated home services
ID eval appreciated no need for further abx, Rocephin and Flagyl since completed
Toxic metabolic encephalopathy resolved
Adrenal crisis:
Improved
Stress doses of IV steroids, hydrocortisone 100 mg IV every 8 hours--> decreased to 50 mg every 8 hours, transitioned back to home dose hydrocortisone 20 mg daily
Central hypothyroidism:
cont home levothyroxine 75 mcg p.o. daily
Alcohol use disorder:
MSAS protocol
Nicotine use disorder:
Continue nicotine patch
Hypertension:
cont home metoprolol and Lasix
Hydralazine PRN
Low dose amlodipine started with holding parameters, cont
Hyperlipidemia:
cont statins
LFTs normal
Hyperglycemia likely due to stress and steroids (no diabetes mellitus):
Hemoglobin A1c 4.8
cont sliding scale
BNP elevated exam however Euvolemic at this time, stable respiratory status on room air
Possible BNP elevation due to infection as opposed to heart failure
Troponin neg
Hypokalemia
Hypophosphatemia
monitor and replete as necessary
QT prolongation
avoid/minimize use of QT prolonging agents as possible
DVT prophylaxis:
Lovenox
CODE STATUS:
Full code
discussed with patient and patient's Gabriele
I spent a total of 50 minutes with the patient or on the floor. More than 50% of this time involved counseling and coordination of care.
Anticipated Discharge: 24 - 48 hours
Subjective/Interval History
-
Date of Service: September 15, 2024
no acute distress though reports general malaise poor sleep overnight. Diarrhea resolved. Denies abd pain.
Objective Data
-
Labs:
Laboratory Results
09/15/24
05:17
WBC 8.9
Hgb 11.5 L
Hct 31.6 L
Plt Count
Sodium 141
Potassium 3.3 L
Chloride 109 H
Carbon Dioxide 22
BUN 8
Creatinine 0.6
Glucose 81
Calcium 8.3 L
Vital Signs:
Vital Signs
Temp Pulse Resp BP Pulse Ox
98.5 F 77 22 154/71 98
09/15/24 07:37 09/15/24 06:18 09/15/24 06:18 09/15/24 06:00 09/15/24 06:18
I&O
09/14/24 09/15/24 09/16/24
06:59 06:59 06:59
Intake Total 360 / 360
Output Total 900 / 900
Balance -540 / -540
[2024-09-15] MEDS: NOVOLOG FLEXPEN-MODERATE RESISTANCE SC ×3 (08:00→17:47)
[2024-09-15] MEDS: POTASSIUM PHOSPHATE 259.0909 MEQ IV (09:24)
[2024-09-15] MEDS: FOLVITE 1 MG PO (09:25)
[2024-09-15] MEDS: LASIX 20 MG PO (09:25)
[2024-09-15] MEDS: TOPROL XL 25 MG PO (09:25)
[2024-09-15] MEDS: PROTONIX 40 MG PO (09:26)
[2024-09-15] MEDS: CORTEF 20 MG PO (09:26)
[2024-09-15] MEDS: VITAMIN B1 100 MG PO ×2 (09:27→23:29)
--- NOTE | 2024-09-15 10:08 | CON.ID ---
Consultation
-
Date/Time Consultation Requested: September 15, 2024 0752
Date/Time Consultation Performed: September 15, 2024 1010
Requesting Provider: Dr. Dalila Claudio
Performing Provider: Dr. Nayeli Amato
Reason for Consultation: Infectious enteritis, E. coli Shiga toxin positive
Chief Complaint / Past History
Chief Complaint
Diarrhea
History of Present Illness
History obtained from at bedside and from patient. She is a 69-year-old female with adrenal insufficiency on chronic steroid, diabetes mellitus who presented to the ER September 12 with nausea vomiting diarrhea. Patient was doing well until
September 11 evening when noted that she was confused and lethargic. She was complaining of abdominal pain, watery diarrhea. Stool non-bloody. She had nausea and vomiting. In the ER patient was febrile temperature 101.5, blood pressure
87/21 responded to IV fluids. She received Zosyn and vancomycin in the ER and changed to ceftriaxone plus metronidazole, when CAT scan without contrast showed fluid-filled small bowel loops. Stool studies + E. coli shiga toxin. Diarrhea has now
resolved. Abdominal pain better. She is making a lot of urine. Only complaint right now is she is very tired that she was not able to sleep last night. She has not eaten outside the past week. She and her ate at home, the same foods,
fruits and vegetables. No one else with diarrhea. No travel.
Past History
Additional Past Medical History:
Diabetes mellitus
Hypertension
Adrenal insufficiency
Hypothyroidism
Dyslipidemia
hx Perianal abscess
Colovesical fistula s/p robotic sigmoidectomy (2022)
Allergy History:
No Known Allergies Allergy (Verified 09/12/24 09:02)
Medications Reviewed: Yes
Current Antibiotics:
Ceftriaxone (d3)
Metronidazole (d3)
Social History
Tobacco: Smoker
Alcohol: None
Drug: None
Personal:
Family History
Family History: Not Pertinent
Review of Systems
Review of Systems
General: Change in Appetite
HEENT: Negative Sinus Problems, Headache or Pharyngitis
Cardiovascular: Negative Chest Pain
Respiratory: Negative Dyspnea or Cough
Genital / Urological: Negative Dysuria or Flank Pain
Endocrine: Weakness
Skin / Hair / Nails: Negative Rash
Neurological: Negative Dizziness
All systems: All other systems were reviewed and were negative
Vital Signs
Temp Pulse Resp BP Pulse Ox
98.5 F 74 21 144/47 93
09/15/24 07:37 09/15/24 08:10 09/15/24 08:10 09/15/24 08:10 09/15/24 08:10
Physical Exam
Physical Exam
Constitutional: Comfortable
Eyes: No Conjunctival Hemorrhage and Sclera Anicteric
Cardiovascular: Regular Rate and S1/S2
Pulmonary: Clear
Gastrointestinal: Soft, Non Tender, Non Distended and Normal Bowel Sounds
Extremities: Negative Edema
1
Lab / Diagnostic Study Results
09/15/24 05:17
09/15/24 05:17
Abs Immat Gran (auto) 0.1 10^3/uL (0-0.05) H 09/14/24 05:11
Absolute Neuts (auto) 5.5 10^3/uL (1.4-6.5) 09/14/24 05:11
Absolute Lymphs (auto) 2.1 10^3/uL (1.2-3.4) 09/14/24 05:11
Absolute Monos (auto) 0.5 10^3/uL (0.1-0.6) 09/14/24 05:11
Absolute Basos (auto) 0.0 10^3/uL (0-0.2) 09/14/24 05:11
Total Counted 100 09/13/24 04:19
Immature Gran % 0.6 % (0-0.5) H 09/14/24 05:11
Neutrophils % 66.8 % (42.2-75.2) 09/14/24 05:11
Lymphocytes % 25.6 % (20.5-51.1) 09/14/24 05:11
Monocytes % 5.9 % (1.7-9.3) 09/14/24 05:11
Eosinophils % 0.7 % (0-6) 09/14/24 05:11
Basophils % 0.4 % (0-2) 09/14/24 05:11
Abs Neuts (Manual) 9.6 10^3/uL (1.4-6.5) H 09/13/24 04:19
Segmented Neutrophils 76 % (42-75) H 09/13/24 04:19
Band Neutrophils 10 % (0-3) H 09/13/24 04:19
Lymphocytes (Manual) 9 % (20-51) L 09/13/24 04:19
Lactic Acid 1.3 mmol/L (0.7-2.0) 09/13/24 04:19
Microbiology Results
Micro:
09/12/24 09:12 Blood Culture - Preliminary
Blood/Venous No Growth in 72 hours- Final report to follow
09/12/24 09:08 Blood Culture - Preliminary
Blood/Venous No Growth in 72 hours- Final report to follow
09/12/24 12:17 Salmonella/Shigella Culture - Final
Feces/Stool No Salmonella, Shigella, Aeromonas or Plesiomonas species
isolated.
Campylobacter Culture - Final
No Campylobacter species isolated.
Shiga Toxin Test - Final
E. coli Shiga Toxin Detected
09/12/24 12:17 Miscellaneous Microbiology Test - Pending
Feces/Stool
09/12/24 12:17 C. difficile GDH Antigen & Toxins - Final
Feces/Stool Negative for toxigenic C.difficile
09/12/24 09:35 Influenza Types A & B (BEL) - Final
Nasal Swab Negative for Influenza A & B, NAAT
Negative results must be combined with clinical observations
and patient history.
Nucleic Acid Amplification test (NAAT)performed on the
[employer] platform.
11/12/23 CT a/p: Mild diffuse prominence of fluid-filled small bowel loops, nonspecific but may represent an infectious or inflammatory enteritis in the appropriate clinical setting. Limited evaluation of the absence of oral and intravenous contrast.
09/12/24 CT chest: Mild bibasilar subsegmental atelectasis. No focal parenchymal consolidation to suggest pneumonia. Pulmonary interstitium at at least top normal. Cannot exclude mild interstitial pneumonitis or edema.
Assessment / Plan
# ETEC gastroenteritis
- no renal complication.
- Diarrhea resolved.
- Abx's not necessary. DC ceftriaxone, metronidazole.
# Conditions [employer]
Diabetes mellitus
Hypertension
Adrenal insufficiency
Hypothyroidism
Dyslipidemia
hx Perianal abscess
Colovesical fistula s/p robotic sigmoidectomy (2022)
[2024-09-15] MEDS: NORVASC 2.5 MG PO (10:48)
[2024-09-15 12:17] LABS: Glucose - Point of Care 101 mg/dl (70-99)
[2024-09-15 12:20] LABS: NT-proBNP 4070 pg/ml; Troponin I < 0.012 ng/ml
--- NOTE | 2024-09-15 15:56 | PTCARENOTE ---
Received this am, feeling generalized malaise, achy- non specific complaints some r/t not sleeping last night. AM care completed and been tryng to let her rest. Orders received to for labs and EKG- completed- results relayed to provider. Grossly
incontinent urine changed x3 so far this shift - declined purewick. Incontinent this pm of large amt loose/liq stool as well. Natalie care provided. Appetite poor would not order meals- encouraging po fluids - just ordered a water ice and herb tea.
SR on tele 96% on RAIR. BP 137/97 s/p PO Norvasc. Spouse at bedside. Awaiting call back to give report will send to 328.
--- NOTE | 2024-09-15 17:00 | PTCARENOTE ---
Received pt from IMU. AAOx3. VSS. MSAS score 0. Hooked up to media monitor and oriented to unit. Pt resting in bed, no complaints at this time. Pt states they will ring with any needs.
[2024-09-15] MEDS: CRESTOR 5 MG PO (18:02)
[2024-09-15] MEDS: LOVENOX 40 MG SC (18:02)
[2024-09-16] VITALS (8 sets, daily range): BP systolic 140–165; BP diastolic 57–73; PULSE 69; O2SAT 95; BMI 27.3
[2024-09-16 03:01] LABS: Glucose - Point of Care 86 mg/dl (70-99)
--- NOTE | 2024-09-16 04:48 | PTCARENOTE ---
@6655 accu check done= 86.@[id number]; Instructed MERISSA Tovar ,via TT, for order change Accu check AC&HS .Accu checks ordered.
[2024-09-16] MEDS: SYNTHROID 75 MCG PO (05:25)
[2024-09-16 06:30] LABS: Hematocrit 32.3 % (37.0-47.0); Hemoglobin 11.6 g/dL (12.0-16.0); Mean Corp Hgb Conc. 35.9 g/dL (33.0-37.0); Mean Corpuscular Hgb 37.9 pg (27.0-31.0); Mean Corpuscular Volume 105.6 fL (81.0-99.0); Mean Platelet Volume 10.7 fL (7.4-10.4); Platelet Count 229 10^3/uL (130-400); Red Blood Cell Count 3.06 10^6/uL (4.20-5.40); Red Cell Dist. Width 12.4 % (11.5-14.5); White Blood Cell Count 9.3 10^3/uL (4.8-10.8)
[2024-09-16 06:40] LABS: Blood Urea Nitrogen 10 mg/dl (7-17); Calcium 8.2 mg/dl (8.4-10.2); Carbon Dioxide 23 mmol/L (22-30); Chloride 104 mmol/L (98-107); Estimated Creatinine Clearance 87 ml/min; Glucose 81 mg/dl (70-99); Magnesium 1.7 mg/dl (1.6-2.3); Phosphorus 3.3 mg/dl (2.5-4.5); Potassium 3.1 mmol/L (3.5-5.1); Sodium 139 mmol/L (135-145); eGFR > 60.00
[2024-09-16 07:49] LABS: Glucose - Point of Care 85 mg/dl (70-99)
--- NOTE | 2024-09-16 08:17 | W.PN.HOSP.TC ---
Today's Communication/Plan
-
Amlodipine increased to 5 mg daily
PT/OT
Replete Potassium
Ativan HSPRN sleep
monitor off abx
Assessment / Plan
Assessment / Plan
Physical exam:
General: no acute distress, appears comfortable
HEENT: Normocephalic, Atraumatic and Moist Mucous Membranes
Respiratory: Clear to Auscultation; Negative Wheezes, Rales or Rhonchi
Cardiac: Regular Rhythm and S1/S2, Systolic murmur present
GI: Soft, Nontender and Nondistended
Musculoskeletal: No Clubbing, No Cyanosis and No Edema
Neuro: Awake, Alert and Oriented
Psych: Calm
A/P:
Sepsis due to infectious enteritis:
C. difficile negative
E coli Shiga toxin detected
CT scan of the abdomen consistent with infectious enteritis.
Diet advanced to Regular
IVF completed
Lactic acidosis resolved
Follow-up blood cultures NGTD
PT OT eval apppreciated home services
ID eval appreciated no need for further abx, Rocephin and Flagyl since completed
Toxic metabolic encephalopathy resolved
Adrenal crisis:
Improved
Stress doses of IV steroids, hydrocortisone 100 mg IV every 8 hours--> decreased to 50 mg every 8 hours, transitioned back to home dose hydrocortisone 20 mg daily
Central hypothyroidism:
cont home levothyroxine 75 mcg p.o. daily
Alcohol use disorder:
MSAS protocol
Nicotine use disorder:
Continue nicotine patch
Hypertension:
cont home metoprolol and Lasix
Hydralazine PRN
Low dose amlodipine started with holding parameters, cont
Amlodipine titrated up to 5 mg daily
Hyperlipidemia:
cont statins
LFTs normal
Hyperglycemia likely due to stress and steroids (no diabetes mellitus):
Hemoglobin A1c 4.8
sugars consistent wnl following tapering steroids
ok to discontinue routine fingersticks
BNP elevated exam however Euvolemic at this time, stable respiratory status on room air
Possible BNP elevation due to infection as opposed to heart failure
Troponin neg
ECHO appreciated severe aortic stenosis, preserved EF
Hypokalemia
Hypophosphatemia
monitor and replete as necessary
QT prolongation
avoid/minimize use of QT prolonging agents as possible
DVT prophylaxis:
Lovenox
PT/OT appreciated home services
CODE STATUS:
Full code
discussed with patient and patient's Gabriele
I spent a total of 40 minutes with the patient or on the floor. More than 50% of this time involved counseling and coordination of care.
Anticipated Discharge: 24 - 48 hours
Subjective/Interval History
-
Date of Service: September 16, 2024
Reports polyuria, poor sleep, denies dysuria. Overall reports general malaise poor appetite though diarrhea resolved.
Objective Data
-
Labs:
Laboratory Results
09/16/24
05:43
WBC 9.3
Hgb 11.6 L
Hct 32.3 L
Plt Count 229 D
Sodium 139
Potassium 3.1 L
Chloride 104
Carbon Dioxide 23
BUN 10
Creatinine 0.6
Glucose 81
Calcium 8.2 L
Vital Signs:
Vital Signs
Temp Pulse Resp BP Pulse Ox
98.4 F 75 16 163/62 96
09/16/24 07:25 09/16/24 07:25 09/16/24 07:25 09/16/24 07:25 09/16/24 07:25
I&O
09/15/24 09/16/24 09/17/24
06:59 06:59 06:59
Intake Total 360 / 360 810 / 810
Output Total 900 / 900
Balance -540 / -540 810 / 810
[2024-09-16] MEDS: VITAMIN B1 100 MG PO ×2 (08:28→21:22)
[2024-09-16] MEDS: NOVOLOG FLEXPEN-MODERATE RESISTANCE SC (08:28)
[2024-09-16] MEDS: TOPROL XL 25 MG PO (08:29)
[2024-09-16] MEDS: LASIX 20 MG PO (08:29)
[2024-09-16] MEDS: PROTONIX 40 MG PO (08:29)
[2024-09-16] MEDS: NORVASC 2.5 MG PO ×2 (08:29→11:06)
[2024-09-16] MEDS: CORTEF 20 MG PO (08:29)
[2024-09-16] MEDS: FOLVITE 1 MG PO (08:30)
[2024-09-16] MEDS: KCL 40 MEQ PO (11:05)
--- NOTE | 2024-09-16 11:16 | CM ---
CM following re: discharge planning.
Reviewed pt's chart, met with pt and pt's at bedside.
PT and OT have been recommending home PT/OT. Both pt and her are aware, pt expressed her unhappy feelings regarding having physical limitation. Emotional support with reassurance offered and provided. CM explained the benefits of physical
activities, having PT/OT at home and with pt's support and encouragement pt expressed her agreement. Pt's stated he works legal department manager and will help his spouse as needed. Pt expressed her desire to come to for outpatient physical
therapy. PT and OT to confirm the plan.
Pt will need a script for outpatient PT, OT.
IMM reviewed, placed on chart, pt has a copy.
D/C plan: per pt's request, home with outpatient PT/OT and and family support. to transport at discharge.
CM will follow with discharge plan updates as hospitalization progresses
[2024-09-16] MEDS: LOVENOX 40 MG SC (17:02)
[2024-09-16] MEDS: CRESTOR 5 MG PO (17:02)
[2024-09-16] MEDS: KCL 20 MEQ PO (21:22)
[2024-09-17 03:54] VITALS: BP 147/70
[2024-09-17 06:00] VITALS: BMI 26.8
[2024-09-17] MEDS: SYNTHROID 75 MCG PO (06:12)
[2024-09-17 06:24] LABS: Hematocrit 31.9 % (37.0-47.0); Hemoglobin 11.5 g/dL (12.0-16.0); Mean Corp Hgb Conc. 36.1 g/dL (33.0-37.0); Mean Corpuscular Hgb 38.3 pg (27.0-31.0); Mean Corpuscular Volume 106.3 fL (81.0-99.0); Platelet Count 222 10^3/uL (130-400); Red Cell Dist. Width 12.3 % (11.5-14.5); White Blood Cell Count 10.1 10^3/uL (4.8-10.8)
[2024-09-17 06:48] LABS: Blood Urea Nitrogen 11 mg/dl (7-17); Calcium 8.4 mg/dl (8.4-10.2); Carbon Dioxide 23 mmol/L (22-30); Chloride 105 mmol/L (98-107); Estimated Creatinine Clearance 66 ml/min; Glucose 74 mg/dl (70-99); Magnesium 1.8 mg/dl (1.6-2.3); Potassium 3.7 mmol/L (3.5-5.1); Sodium 137 mmol/L (135-145); eGFR > 60.00
[2024-09-17 07:10] VITALS: BP 156/66
--- NOTE | 2024-09-17 07:38 | W.PN.HOSP.TC ---
Today's Communication/Plan
-
discharge
Assessment / Plan
Assessment / Plan
Physical exam:
General: no acute distress, appears comfortable
HEENT: Normocephalic, Atraumatic and Moist Mucous Membranes
Respiratory: Clear to Auscultation; Negative Wheezes, Rales or Rhonchi
Cardiac: Regular Rhythm and S1/S2, 4/6 Systolic murmur present
GI: Soft, Nontender and Nondistended
Musculoskeletal: No Clubbing, No Cyanosis and No Edema
Neuro: Awake, Alert and Oriented
Psych: Calm
A/P:
Sepsis due to infectious enteritis:
C. difficile negative
E coli Shiga toxin detected
CT scan of the abdomen consistent with infectious enteritis.
Diet advanced to Regular tolerating though appetite poor, gradually improving
IVF completed
Lactic acidosis resolved
blood cultures noted no Growth
PT OT eval appreciated home services
ID eval appreciated no need for further abx, Rocephin and Flagyl since completed
Toxic metabolic encephalopathy resolved
Adrenal crisis:
Improved
Stress doses of IV steroids, hydrocortisone 100 mg IV every 8 hours--> decreased to 50 mg every 8 hours, transitioned back to home dose hydrocortisone 20 mg daily
Central hypothyroidism:
cont home levothyroxine 75 mcg p.o. daily
Alcohol use disorder:
MSAS protocol
Nicotine use disorder:
Continue nicotine patch
Hypertension:
cont home metoprolol and Lasix (briefly held d/t complaint urinary freq in associate with poor appetite since improved)
Hydralazine PRN
Low dose amlodipine started with holding parameters, titrated up to 5 mg daily, cont on discharge
Hyperlipidemia:
cont statins
LFTs normal
Hyperglycemia likely due to stress and steroids (no diabetes mellitus):
Hemoglobin A1c 4.8
sugars consistent wnl following tapering steroids
ok to discontinue routine fingersticks
BNP elevated exam however Euvolemic at this time, stable respiratory status on room air
Possible BNP elevation due to infection as opposed to heart failure
Troponin neg
ECHO appreciated severe aortic stenosis, preserved EF, discussed with patient's outpatient Director Of Orthopedics Dr Bacon, patient to follow up at her scheduled appt within the next month
Hypokalemia
Hypophosphatemia
monitor and replete as necessary
QT prolongation
avoid/minimize use of QT prolonging agents as possible
DVT prophylaxis:
Lovenox
PT/OT appreciated home services
CODE STATUS:
Full code
Medically stable for discharge home with home services and outpatient follow up recommendations.
Discussed with patient and patient's Gabriele
Total Time Preparing Discharge ___40____ minutes including examination of the patient, summary of the hospital stay, instructions for continuing care to all relevant caregivers; and preparation of discharge records, prescriptions, and referral
forms if necessary.
Anticipated Discharge: Today
Subjective/Interval History
-
Date of Service: September 17, 2024
No acute distress sitting up comfortably in chair. Notes improvement in symptoms. Tolerating diet. Denies new acute issues. Eager to go home.
Objective Data
-
Labs:
Laboratory Results
09/17/24
05:41
WBC 10.1
Hgb 11.5 L
Hct 31.9 L
Plt Count 222
Sodium 137
Potassium 3.7
Chloride 105
Carbon Dioxide 23
BUN 11
Creatinine 0.7
Glucose 74
Calcium 8.4
Vital Signs:
Vital Signs
Temp Pulse Resp BP Pulse Ox
99.2 F 68 16 147/70 94
09/17/24 03:54 09/17/24 03:54 09/17/24 03:54 09/17/24 03:54 09/17/24 03:54
I&O
09/16/24 09/17/24 09/18/24
06:59 06:59 06:59
Intake Total 810 / 810 1485 / 1485
Balance 810 / 810 1485 / 1485
[2024-09-17] MEDS: NORVASC 5 MG PO (07:42)
[2024-09-17] MEDS: PROTONIX 40 MG PO (07:42)
[2024-09-17] MEDS: VITAMIN B1 100 MG PO (07:42)
[2024-09-17] MEDS: FOLVITE 1 MG PO (07:42)
[2024-09-17] MEDS: TOPROL XL 25 MG PO (07:42)
[2024-09-17] MEDS: KCL 20 MEQ PO (07:43)
[2024-09-17] MEDS: CORTEF 20 MG PO (07:43)
[2024-09-17 10:58] VITALS: BP 146/56
[2024-09-17 13:17] LABS: Iron 63 ug/dl (37-170)
[2024-09-17 13:26] LABS: Percent Saturation 28 % (20-50); Total Iron Binding Capacity 220 ug/dl (265-497)
[2024-09-17 14:25] LABS: Folate > 20.0 ng/ml (2.76-20); Vitamin B12 840 pg/ml (239-931)
[2024-09-17 14:34] VITALS: BP 154/61; PULSE 71
[2024-09-17 15:10] VITALS: BP 146/58
[2024-09-17 15:44] VITALS: BMI 26.8
--- NOTE | 2024-09-17 17:04 | W.DCSUMMARY ---
Discharge Summary
Discharge Data
Date of Admission: 09/12/24
Date of Discharge: 09/17/24
-
Pending Results: No
Discharge Plan
-
Patient Disposition: Home (Routine Discharge)
Discharge Diagnosis/Procedures: Infectious Enteritis, E. coli Shiga Toxin positive
Toxic metabolic encephalopathy resolved
Adrenal Insufficiency
Central Hypothyroidism:
Fatty Liver Disease
Hyperlipidemia
Tobacco use
Hypertension
Severe Aortic Stenosis
Hypokalemia Resolved
Hypophosphatemia Resolved
QT prolongation
Condition: Fair
Diet: Low Fat and Low Cholesterol
Activity: As tolerated and With Walker
Driving Restrictions: Not until seen by your Dr
Bathing Restrictions: None
Blood Work: Please repeat CBC and BMP with primary care provider in 1 week of discharge.
Other Services: PT and OT
Activity Restrictions/Additional Instructions:
Please follow up with your primary care provider in 1 week of discharge and keep your appointment with Cardiology.
Amlodipine has been prescribed for better control hypertension.
Nicotine supplementation has been prescribed to help with smoking cessation. This is available over the counter.
Potassium supplementation has been prescribed for hypokalemia.
Please take medications as prescribed/recommended and follow up with primary care provider and/or other healthcare provider involved in your care for refills and/or further adjustment to your medication regimen as necessary.
It is strongly advised that your abstain from Alcohol or Tobacco use as usage will likely lead to overall worsening of your condition and significantly increase your risk of morbidity and/or mortality.
Referrals:
Kavitha Escalera MD [Family Provider] - in one week
Prescriptions:
New
nicotine 14 mg/24 hr Patch 24 Hour
14 mg transdermal DAILY 7 Days Qty: 7 0RF
amlodipine 5 mg Tablet
5 mg PO DAILY 30 Days Qty: 30 0RF
potassium chloride 20 mEq Tablet,Er Particles/Crystals
20 meq PO DAILY 30 Days Qty: 30 0RF
Continued
multivitamin [One Daily Essential] 1 EACH tablet
1 ea PO DAILY
metoprolol succinate 25 mg Tablet Extended Release 24 Hr
25 mg PO DAILY
furosemide 20 mg Tablet
20 mg PO DAILY
hydrocortisone 10 mg Tablet
20 mg PO DAILY
rosuvastatin [Crestor] 5 mg Tablet
5 mg PO QPM
Patient Comments:
no pharamcy fills in 2023
levothyroxine [Synthroid] 75 mcg Tablet
75 mcg PO DAILY
Discharge Orders:
Discharge Patient (As Directed); Ordered 09/17/24
Ordered By: Dalila Claudio
Discharge Date and Time
Print Language: INDIAN
[2024-09-17] MEDS: LOVENOX SC (17:28)
[2024-09-17] MEDS: CRESTOR 5 MG PO (17:28)
== END 2024-09-17 18:05 | disposition home or self-care (01) | DRG 871 ==
LOC: 3 WEST ACU 12:31
PROVIDERS: Registered Nurse; ADMITTING PHYSICIAN Hospitalist; ATTENDING PHYSICIAN Internal Medicine; EMERGENCY PHYSICIAN Emergency Medicine; FAMILY PHYSICIAN Family Medicine; OTHER PHYSICIAN Internal Medicine Infectious Disease
DX: A41.51 Sepsis due to Escherichia coli [E. coli] (principal); G92.8 Other toxic encephalopathy; E87.20 Acidosis, unspecified; A09 Infectious gastroenteritis and colitis, unspecified; E27.2 Addisonian crisis; F17.200 Nicotine dependence, unspecified, uncomplicated; R65.20 Severe sepsis without septic shock; F10.10 Alcohol abuse, uncomplicated; I10 Essential (primary) hypertension; E78.00 Pure hypercholesterolemia, unspecified; E87.6 Hypokalemia; E83.39 Other disorders of phosphorus metabolism; E03.8 Other specified hypothyroidism; Z11.52 Encounter for screening for COVID-19
CPT/HCPCS: 51701; 71045; 71250; 74176; 80048; 80053; 81003; 82248; 82607; 82746; 82962; 83036; 83540; 83550; 83605; 83735; 83880; 84100; 84439; 84443; 84484; 85025; 85027; 87040; 87045; 87046; 87324; 87427; 87449; 87502; 87811; 93005; 93306; 94640; 96365; 96366; 96367; 97116; 97163; 97166; 97530; 97535; 99285; 99406

== ENCOUNTER 2024-09-29 10:12 | Outpatient (RCR) | payer MEDICARE, SELFPAY | END 2024-09-29 23:59 | disposition home or self-care (01) | LOC: RPT 10:12 | PROVIDERS: ATTENDING PHYSICIAN Family Medicine | DX: R26.89 Other abnormalities of gait and mobility (principal); Z73.6 Limitation of activities due to disability | CPT/HCPCS: 97110; 97112; 97163; 97530 ==

== ENCOUNTER → 2024-10-06 12:48 | Outpatient (REF) | payer MEDICARE, SELFPAY | LOC: HWWDC 12:48 | PROVIDERS: ATTENDING PHYSICIAN Family Medicine | DX: Z12.31 Encounter for screening mammogram for malignant neoplasm of breast (principal) | CPT/HCPCS: 77063; 77067 ==

== ENCOUNTER 2024-11-03 13:56 | Outpatient (RCR) | payer MEDICARE, SELFPAY | END 2024-11-03 23:59 | disposition home or self-care (01) | LOC: RPT 13:56 | PROVIDERS: ATTENDING PHYSICIAN Family Medicine | DX: R26.89 Other abnormalities of gait and mobility (principal); Z73.6 Limitation of activities due to disability | CPT/HCPCS: 97110; 97112; 97116; 97530; 97535 ==

== ENCOUNTER 2024-12-03 10:49 | Outpatient (RCR) | payer MEDICARE, SELFPAY | END 2024-12-03 23:59 | disposition home or self-care (01) | LOC: RPT 10:49 | PROVIDERS: ATTENDING PHYSICIAN Family Medicine | DX: R26.89 Other abnormalities of gait and mobility (principal); Z73.6 Limitation of activities due to disability | CPT/HCPCS: 97110; 97112; 97116; 97530 ==

== ENCOUNTER 2024-12-07 19:00 | Inpatient (IN) | payer MEDICARE, SELFPAY ==
[2024-12-07 15:25] VITALS: BP 117/58
[2024-12-07 15:29] VITALS: BP 117/58
--- NOTE | 2024-12-07 15:34 | ED.GENMED ---
History of Present Illness
General
Chief Complaint: Abdominal Symptoms
Source: patient
Exam Limitations: none
Time Seen by Provider: 12/07/24 15:23
Nursing documentation reviewed up to this point in time: agreed with
History of Present Illness
History of Present Illness:
Patient to ED wt complaint of n/v/d. States she did not feel well all day yesterday. Today she developed N/v/d. Denies fever but feels chills. No abdominal pain. Denies any cp/pressure, SOB, cough. Brought to ED via EMS for eval.
Maculopapular rash noted to trunk and upper and lower extremities. SHe is unaware of rash. She completed course of antibiotics on Saturday for UTI. Macrobid
Past History
Past History
ED Past Medical History: HTN, Hypercholesterolemia and NIDDM
ED Past Surgical History: Other (Skin excision)
Social History
Tobacco: Smoker
Alcohol: None
Drug: None
Personal:
Living: with family
Employment: Retired
Family History
Family History: Other (Noncontributory)
Review of Systems
Review of Systems
Allergies reviewed?: Yes
All Other Systems: ROS reviewed and negative except as documented in HPI and ROS
Constitutional: Reports fatigue and chills
EENT: Reports no symptoms
Respiratory: Reports no symptoms
Cardiac: Reports no symptoms
ABD/GI: Reports nausea, vomiting and diarrhea
: Reports no symptoms
Musculoskeletal: Reports no symptoms
Skin: Reports other (maculopapular rash to trunk upper and lower extremities)
Neurological: Reports weakness
Psychiatric: Reports no symptoms
Phy Exam
General Physical Exam
General Presentation: moderate distress
General age: appears stated age
General Skin: warm and dry
General Habitus: normal
General Mental: alert
Cardiovascular Exam
Cardiovascular Exam: regular rate/rhythm and no edema
Pulmonary Exam
Pulmonary Exam: lungs clear and no respiratory distress
Gastrointestinal Exam
Gastrointestinal Exam: normal bowel sounds, non tender, soft, no organomegaly, non distended and no cva tenderness
Neurological Exam
Neurological Exam: alert, oriented x3, CN II-XII intact, no motor deficits, no sensory deficits and speech normal
Musculoskeletal Exam
Musculoskeletal Exam: full ROM and neuro vasc intact
Skin Exam
Skin Exam: normal color, warm/dry, no petechia and other (maculopapular rash to trunk, upper and lower extremities.)
Psychiatric Exam
Psychiatric Exam: normal mood/affect
Course
Orders/Labs/Results
Orders:
Orders
12/07/24 Dinner
Clear Liquid
12/07/24 15:32
Ondansetron Injectable [Zofran] 4 mg IV NOW STA
12/07/24 15:33
Urinalysis Reflex To Culture Urgent
0.9% Sodium Chloride 1000 ml [Nss] 1,000 ml IV BOLUS
12/07/24 15:38
CT Abd/pelvis W Iv Cont Urgent
Comment:
Reason For Exam: vomiting, diarrhea
12/07/24 15:44
COVID-19 Antigen Urgent
Source: Nasal Swab
Complete Blood Count/With Diff Urgent
Comprehensive Metabolic Panel Urgent
Lipase Urgent
Influenza A+B Rapid Molecular Urgent
FRANCIA Source: Nasal Swab
Specimen Description:
12/07/24 16:16
Lactic Acid Urgent
Blood Culture Urgent
FRANCIA Source: Blood/Venous
Specimen Description:
12/07/24 18:31
C difficile Antigen & Toxins Stat
FRANCIA Source: Feces/Stool
Specimen Description:
Norovirus by PCR Urgent
FRANCIA Source: Feces/Stool
Specimen Description:
Stool Culture Stat
FRANCIA Source: Feces/Stool
Specimen Description:
12/07/24 18:32
Admit/Transfer Patient As Directed
Co-Sign Provider:
Level of Care: Inpatient admission
Assign to:: Medical/Surgical
Physician / Group: Brandon/hospitalist
Diagnosis: N/V/D
Reason for Hospitalization: N/V/D
Expected length of stay greater than two midnights?: Yes
ELOS- Estimated Length of Stay in days: 3
I certify the patient meets the requirements for IP care: Yes
PRN Pain Medication Management As Directed
May give lesser potent ordered pain med per pt: Yes
preference::
Protocol:: Medication orders for pain may be administered in a
manner that supports deferring to patient preference
when the pt is:
- Requesting an ordered lesser potent pain medication.
Least to most potent pain medications are defined
as: acetaminophen < NSAID < tramadol < opioids
(morphine, oxycodone, hydromorphone).
- Requesting a lesser dose of the same medication IF
ORDERED.
- Requesting a less intrusive route of administration
if both routes are prescribed by the provider (PO <
IV).
12/07/24 18:33
Code Status As Directed
Resuscitation Status: Full Code
12/07/24 20:55
0.9% Sodium Chloride 1000 ml [Nss] 1,000 ml IV 60 mls/hr
Acetaminophen [Tylenol] 650 mg PO Q4HPRN PRN
Bisacodyl [Dulcolax] 10 mg RECTAL [id number] PRN
Dextrose 50%-Water [Dextrose 50% Syringe] 12.5 grams IV [id number] PRN
Docusate W/Senna [Senokot-S] 1 tablet PO BIDPRN PRN
Glucagon [GlucaGen] 1 mg IM PRN PRN
Ondansetron Injectable [Zofran] 4 mg IV Q6HPRN PRN
Polyethylene Glycol Powder [Miralax] 17 grams PO DAILYPRN PRN
12/07/24 20:55
Activity As Directed
Activity Level: As Tolerated
Bedside Glucose Monitoring As Directed
Frequency: AC&HS
Additional Instructions:: Change to q6h if pt on TPN, tube feeding or not eating
Vital Signs As Directed
Frequency: Per unit guidelines
Occupational Therapy Consult [Ot Eval And Treat] Routine
Pt Eval And Treat Routine
Activity Level: As Tolerated
DX Deep Vein Thrombosis Video Routine
12/08/24 06:00
Basic Metabolic Panel IN AM
Complete Blood Count/No Diff IN AM
Glycohemoglobin (HgbA1c) IN AM
Magnesium IN AM
Levothyroxine [Synthroid] 75 mcg PO DAILY @ 0600
12/08/24 07:30
Insulin Aspart Corrective Low [Novolog Flexpen-Low Resistance] See Protocol SC AC
12/08/24 08:00
Amlodipine [Norvasc] 5 mg PO DAILY
Furosemide [Lasix] 20 mg PO DAILY
Hydrocortisone [Hydrocortone/Cortef] 20 mg PO DAILY
Metoprolol Xl [Toprol Xl] 25 mg PO DAILY
12/08/24 18:00
Enoxaparin Sodium [Lovenox] 40 mg SC QPM
Rosuvastatin Calcium [Crestor] 5 mg PO QPM
12/09/24 06:00
Basic Metabolic Panel IN AM
Complete Blood Count/No Diff IN AM
Magnesium IN AM
12/10/24 06:00
Basic Metabolic Panel IN AM
Complete Blood Count/No Diff IN AM
Magnesium IN AM
12/11/24 06:00
Basic Metabolic Panel IN AM
Complete Blood Count/No Diff IN AM
12/12/24 06:00
Basic Metabolic Panel IN AM
Complete Blood Count/No Diff IN AM
12/13/24 06:00
Basic Metabolic Panel IN AM
Complete Blood Count/No Diff IN AM
12/14/24 06:00
Basic Metabolic Panel IN AM
Complete Blood Count/No Diff IN AM
Abnormal Lab Results
12/07/24
15:44
WBC 12.9 H 10^3/uL
(4.8-10.8)
RBC 3.36 L 10^6/uL
(4.20-5.40)
Hgb 11.9 L g/dL
(12.0-16.0)
Hct 34.8 L %
(37.0-47.0)
MCV 103.6 H fL
(81.0-99.0)
MCH 35.4 H pg
(27.0-31.0)
MPV 11.4 H fL
(7.4-10.4)
Abs Immat Gran (auto) 0.1 H 10^3/uL
(0-0.05)
Absolute Neuts (auto) 8.8 H 10^3/uL
(1.4-6.5)
Absolute Monos (auto) 1.2 H 10^3/uL
(0.1-0.6)
Lymphocytes % 19.8 L %
(20.5-51.1)
Carbon Dioxide 18 L mmol/L
(22-30)
BUN 19 H mg/dl
(7-17)
Glucose 129 H mg/dl
(70-99)
Calcium 7.6 L mg/dl
(8.4-10.2)
12/07/24 15:44
12/07/24 15:44
Vital Signs
Initial and Last Documented VS:
Initial Vital Signs
BP
117/58
12/07/24 15:25
Last Documented Vital Signs
Temp Pulse Resp BP Pulse Ox
97.8 F 98 20 129/75 94
12/07/24 22:42 12/07/24 22:42 12/07/24 22:42 12/07/24 22:42 12/07/24 22:42
*Radiology
Radiology exam reviewed: radiology read reviewed
*Pulse Oximetry
Patient hypoxic: no
*Critical Care Note
Total Time (30-74mins, 75-104mins- exclusive of procedures): Not Applicable
Update Note
Update Note:
Patient to ED with n/v/d. Symptoms started today. Labs reviewed. Ct reviewed, no concerning findings. Given IVF and zofran in dept with some improvement but continues to remain weak. Unable to stand/transfer on own. Had another episode of
diarrhea while in CT, unfortunately specimen was unable christy collected. Will continue IV re-hydration, admit to hospitalist service.
ED Attending Note
-
Portions of this chart may have been created with voice recognition software.� Occasional wrong word or��sound alike� substitutions may have occurred due to the inherent limitations of voice recognition software.
Discharge Plan
Departure
Patient Disposition: Admit
Date of Disposition: 12/07/24
Time of Disposition: 18:07
Presentation/result/management discussed w/ accepting MD/DO: Hospitalist
Patient with high blood pressure during this ER visit?: No
Condition: Fair
Covid-19: Not Applicable
Discharge Problem:
Weakness, Diarrhea, Dehydration
Interventions
Interventions:
*Risk Screen - Suicide Last Done: 12/07/24 15:48
*General Assessment Last Done: 12/07/24 15:48
*Neglect/Abuse Screening Last Done: 12/07/24 15:48
*ED COVID-19 Vaccine History Last Done: 12/07/24 16:50
YT-Guogvd-Ehljnzqhty Assessment Last Done: 12/07/24 15:28
[2024-12-07 16:00] VITALS: BP 127/49
[2024-12-07 16:00] LABS: % Basophils 0.2 % (0-2); % Eosinophils 1.8 % (0-6); % Immature Granulocytes 0.5 % (0-0.5); % Lymphocytes 19.8 % (20.5-51.1); % Monocytes 9.3 % (1.7-9.3); % Neutrophils 68.4 % (42.2-75.2); Absolute Eosinophils 0.2 10^3/uL (0-0.7); Absolute Immature Granulocytes 0.1 10^3/uL (0-0.05); Absolute Lymphocytes 2.6 10^3/uL (1.2-3.4); Absolute Monocytes 1.2 10^3/uL (0.1-0.6); Absolute Neutrophils 8.8 10^3/uL (1.4-6.5); Hematocrit 34.8 % (37.0-47.0); Hemoglobin 11.9 g/dL (12.0-16.0); Mean Corp Hgb Conc. 34.2 g/dL (33.0-37.0); Mean Corpuscular Hgb 35.4 pg (27.0-31.0); Mean Corpuscular Volume 103.6 fL (81.0-99.0); Mean Platelet Volume 11.4 fL (7.4-10.4); Nucleated Red Blood Cells % 0 %; Platelet Count 257 10^3/uL (130-400); Red Blood Cell Count 3.36 10^6/uL (4.20-5.40); Red Cell Dist. Width 13.7 % (11.5-14.5); White Blood Cell Count 12.9 10^3/uL (4.8-10.8)
[2024-12-07] MEDS: NSS 1000 IV ×2 (16:04→22:31)
[2024-12-07] MEDS: ZOFRAN 4 MG IV ×2 (16:06→22:19)
[2024-12-07 16:16] LABS: ALT (SGPT) 15 U/L (0-35); AST (SGOT) 20 U/L (14-36); Albumin 3.9 g/dl (3.5-5.0); Alkaline Phosphatase 59 U/L (38-126); Blood Urea Nitrogen 19 mg/dl (7-17); Calcium 7.6 mg/dl (8.4-10.2); Carbon Dioxide 18 mmol/L (22-30); Chloride 103 mmol/L (98-107); Glucose 129 mg/dl (70-99); Lipase 31 U/L (23-300); Sodium 135 mmol/L (135-145); Total Protein 6.9 g/dl (6.3-8.2); eGFR > 60.00
[2024-12-07 16:35] LABS: Lactic Acid 1.9 mmol/L (0.7-2.0)
[2024-12-07 16:46] LABS: COVID-19 Antigen Negative (Negative)
[2024-12-07 17:00] VITALS: BP 120/63
--- NOTE | 2024-12-07 18:16 | HPS.HSE ---
Family Physician
-
Family Physician: Kavitha Escalera
Chief Complaint
-
N/V/D
History of Present Illness
HPI: 69 yo F with PMH HTN, HLD, NIDDM, central hypothyroidism and adrenal insufficiency; p/w nausea, vomiting and diarrhea that started the day [employer]. Pt states that diarrhea is watery and foul smelling.
She denies to fever but c/o chills. She denies to abdominal pain, CP, SOB etc.
Of note, she completed course of antibiotic (cannot recall name) on Monday 12/04 for UTI.
Medical History
Past Medical History
Past Medical History: Reports HTN, Hypercholesterolemia and NIDDM
Past Surgical History: Reports Other
Additional Past Surgical History:
I+D of perianal abscess 01/2019 - Dr. Ulrich.
Social History
Tobacco: Smoker
Alcohol: None
Drug: None
Personal:
Living: With Family
Family History
Family History: Not pertinent
Allergies / Home Medications
Allergies reflects when Allergies were last updated in [facility].
Home Medications with original date entered in [facility]
Allergy/Medication List:
Medications on admission are unable to be verified or confirmed at this time.
Review of Systems
-
Abdomen/GI: Reports See HPI, Nausea, Vomiting and Diarrhea; Denies Abdominal Pain
Physical Exam
Vital Signs
Vital Signs
Temp Pulse Resp BP Pulse Ox
37.8 C 90 25 127/49 94
12/07/24 15:29 12/07/24 16:45 12/07/24 16:45 12/07/24 16:00 12/07/24 16:45
Physical Exam
General: Well Developed, Well Nourished, No Apparent Distress, Comfortable and Conversant
HEENT: NormoCephalic, Moist mucous membranes and Atraumatic
Respiratory: Clear and Non Labored Respirations; No Accessory Resp Muscle Use
Cardiac: S1/S2 and Regular Rhythm; No Murmur or Rub
GI: Soft, Non Tender, Non Distended and Normal Bowel Sounds; No Organomegaly
Rectal: Deferred by Provider
Musculoskeletal: No Clubbing, No Cyanosis and No Edema
Neuro: Awake and Alert
Psych: Calm and Intact Judgment/Insight
Laboratory Results
-
12/07/24 15:44
12/07/24 15:44
Laboratory Results
Lactic Acid 1.9 mmol/L (0.7-2.0) 12/07/24 16:16
Total Bilirubin 1.0 mg/dl (0.2-1.3) 12/07/24 15:44
AST 20 U/L (14-36) 12/07/24 15:44
ALT 15 U/L (0-35) 12/07/24 15:44
Alkaline Phosphatase 59 U/L (38-126) 12/07/24 15:44
Lipase 31 U/L (23-300) 12/07/24 15:44
Data Reviewed
-
Lab Data: Labs Reviewed by me
Impression/Plan
-
HPI: 69 yo F with PMH HTN, HLD, NIDDM, central hypothyroidism and adrenal insufficiency; p/w nausea, vomiting and diarrhea that started the day [employer]. Pt states that diarrhea is watery and foul smelling.
She denies to fever but c/o chills. She denies to abdominal pain, CP, SOB etc.
Of note, she completed course of antibiotic (cannot recall name) on Monday 12/04 for UTI.
A/P:
# nausea, vomiting and watery diarrhea
# weakness due to above
s/p 1L NSS bolus in ED, cont gentle IVF
Clears for now
Zofran PRN
COVID/Flu negative
check C diff, Norovirus, stool culture
PT OT eval for weakness
# Noted h/o infectious enteritis in Sep 2024
E coli Shiga toxin detected, completed Rocephin and Flagyl at that time
# HTN
Cont SCRUB TECH meds with holding parameter
# HLD
Cont SCRUB TECH Crestor
# NIDDM
cover with ISS
# Central hypothyroidism
# Central adrenal insufficiency
cont SCRUB TECH levothyroxine and hydrocortisone
# cigarette smoking
Pt declined nicotine patch currently
DVT prophylaxis: Lovenox SQ
FC
[2024-12-07 22:42] VITALS: BP 129/75
[2024-12-07 23:47] VITALS: BMI 27.3
[2024-12-07 23:50] VITALS: BP 125/51
[2024-12-07] MEDS: TYLENOL 650 MG PO (23:56)
[2024-12-07 23:58] LABS: Glucose - Point of Care 117 mg/dl (70-99)
--- NOTE | 2024-12-08 00:23 | PTCARENOTE ---
Pt admitted to 4W. AAOx3, flat affect but pleasant. no c/o N or V. febrile. Lung sounds clear. Call chew within reach.
[2024-12-08] MEDS: SYNTHROID 75 MCG PO (05:58)
[2024-12-08 07:00] VITALS: BP 133/67
[2024-12-08 08:09] LABS: Hematocrit 33.2 % (37.0-47.0); Hemoglobin 11.1 g/dL (12.0-16.0); Mean Corp Hgb Conc. 33.4 g/dL (33.0-37.0); Mean Corpuscular Hgb 35.1 pg (27.0-31.0); Mean Corpuscular Volume 105.1 fL (81.0-99.0); Mean Platelet Volume 11.5 fL (7.4-10.4); Platelet Count 216 10^3/uL (130-400); Red Blood Cell Count 3.16 10^6/uL (4.20-5.40); Red Cell Dist. Width 13.5 % (11.5-14.5); White Blood Cell Count 11.2 10^3/uL (4.8-10.8)
[2024-12-08 08:20] LABS: Glucose - Point of Care 95 mg/dl (70-99)
--- NOTE | 2024-12-08 08:28 | W.PN.HOSP.TC ---
Today's Communication/Plan
-
see A/P
Assessment / Plan
Assessment / Plan
HPI: 69 yo F with PMH HTN, HLD, NIDDM, central hypothyroidism and adrenal insufficiency; p/w nausea, vomiting and diarrhea that started the day [employer] FAMILY [employer]IV[employer]. Pt states that diarrhea is watery and foul smelling.
She denies to fever but c/o chills. She denies to abdominal pain, CP, SOB etc.
Of note, she completed course of antibiotic (cannot recall name) on Monday 12/04 for UTI.
A/P:
# nausea, vomiting and watery diarrhea
# weakness due to above
CT AP from admission largely unrevealing
s/p 1L NSS bolus in ED, cont gentle IVF
was on clears, appears lethargic, NPO for now
Cont gentle IVF
Zofran PRN
COVID/Flu negative
check C diff, Norovirus, stool culture
PT OT eval for weakness
# Noted h/o infectious enteritis in Sep 2024
E coli Shiga toxin detected, completed Rocephin and Flagyl at that time
# HTN
Cont HOME AND FAMILY LIVING PROFESSOR meds with holding parameter
# HLD
Cont HOME AND FAMILY LIVING PROFESSOR Crestor
# NIDDM
cover with ISS
# Central hypothyroidism
# Central adrenal insufficiency
cont HOME AND FAMILY LIVING PROFESSOR levothyroxine
Pt appears lethargic, replace HOME AND FAMILY LIVING PROFESSOR hydrocortisone with stress dose steroid for 3 days
# cigarette smoking
Pt declined nicotine patch currently
DVT prophylaxis: Lovenox SQ
FC
DW RN
Anticipated Discharge: 24 - 48 hours
Subjective/Interval History
-
Date of Service: December 08, 2024
Objective Data
-
Labs:
Laboratory Results
12/08/24
07:38
WBC 11.2 H
Hgb 11.1 L
Hct 33.2 L
Plt Count 216
Sodium Pending
Potassium Pending
Chloride Pending
Carbon Dioxide Pending
BUN Pending
Creatinine Pending
Glucose Pending
Calcium Pending
Vital Signs:
Vital Signs
Temp Pulse Resp BP Pulse Ox
36.9 C 91 18 133/67 99
12/08/24 07:00 12/08/24 07:00 12/08/24 07:00 12/08/24 07:00 12/08/24 07:00
Review of Systems
-
All other systems: Reviewed and negative
Physical Exam
-
General: Well Developed, Well Nourished and Comfortable
HEENT: Normocephalic and Moist Mucous Membranes
Respiratory: Clear to Auscultation and Non Labored Respirations; Negative Accessory Resp Muscle Use
Cardiac: Regular Rhythm and S1/S2
GI: Soft and Nontender
Skin: Warm
Neuro: Awake, Alert and Oriented
Psych: Calm and Intact Judgement/Insight
Data Reviewed
-
CT Scan: Report Reviewed by me
Labs: Labs Reviewed by me
[2024-12-08] MEDS: TOPROL XL 25 MG PO (08:40)
[2024-12-08] MEDS: HYDROCORTONE/CORTEF PO (08:40)
[2024-12-08] MEDS: NORVASC 5 MG PO (08:41)
[2024-12-08] MEDS: LASIX 20 MG PO (08:41)
[2024-12-08 08:58] LABS: Glycohemoglobin (HgbA1c) 5.3 % (4.0-5.6)
[2024-12-08 09:29] LABS: Calcium 7.8 mg/dl (8.4-10.2); Carbon Dioxide 15 mmol/L (22-30); Chloride 107 mmol/L (98-107); Estimated Creatinine Clearance 74 ml/min; Glucose 85 mg/dl (70-99); Magnesium 2.3 mg/dl (1.6-2.3); Potassium 3.9 mmol/L (3.5-5.1); Sodium 134 mmol/L (135-145); eGFR > 60.00
[2024-12-08 09:42] LABS: Blood Urea Nitrogen 17 mg/dl (7-17)
[2024-12-08] MEDS: SOLU-CORTEF 50 MG IV ×2 (10:25→15:52)
[2024-12-08] MEDS: NSS 1000 IV (10:27)
--- NOTE | 2024-12-08 10:59 | CM ---
CM reviewed chart, patient seen bedside, initial assessment completed. Patient resides with her in a two story home, about two steps to enter. Patient denies use of DME, does have a walker and cane at home if needed. Patient denies VN or SNF
history. Patient reports she is current with outpatient PT at the ambulatory center. Patient PCP Kavitha Escalera, pharmacy [facility], confirms prescription coverage. Patient denies insecurities at home. CM will continue to follow for all
discharge planning needs.
Plan; likely home no needs, watch for PT/OT evaluations.
[2024-12-08 11:43] VITALS: BP 120/51; PULSE 84; O2SAT 94
[2024-12-08 11:53] LABS: Glucose - Point of Care 94 mg/dl (70-99)
[2024-12-08 15:47] VITALS: BP 117/57
[2024-12-08 16:58] LABS: Glucose - Point of Care 103 mg/dl (70-99)
[2024-12-08] MEDS: LOVENOX 40 MG SC (17:08)
[2024-12-08] MEDS: CRESTOR 5 MG PO (17:08)
[2024-12-08] MEDS: MELATONIN 5 MG PO (21:37)
[2024-12-08 21:40] LABS: Glucose - Point of Care 194 mg/dl (70-99)
[2024-12-08 23:30] VITALS: BP 120/49
[2024-12-09] MEDS: SOLU-CORTEF IV (00:01)
[2024-12-09] MEDS: SYNTHROID 75 MCG PO (05:22)
[2024-12-09] MEDS: NSS 1000 IV (05:22)
[2024-12-09 07:00] VITALS: BP 123/58
[2024-12-09 07:26] LABS: Glucose - Point of Care 77 mg/dl (70-99)
[2024-12-09] MEDS: TOPROL XL 25 MG PO (07:31)
[2024-12-09] MEDS: SOLU-CORTEF 50 MG IV (07:31)
[2024-12-09] MEDS: NORVASC 5 MG PO (07:32)
[2024-12-09] MEDS: LASIX 20 MG PO (07:32)
[2024-12-09 08:02] LABS: Hematocrit 28.6 % (37.0-47.0); Hemoglobin 9.8 g/dL (12.0-16.0); Mean Corp Hgb Conc. 34.3 g/dL (33.0-37.0); Mean Corpuscular Hgb 35.4 pg (27.0-31.0); Mean Corpuscular Volume 103.2 fL (81.0-99.0); Mean Platelet Volume 11.8 fL (7.4-10.4); Platelet Count 214 10^3/uL (130-400); Red Blood Cell Count 2.77 10^6/uL (4.20-5.40); White Blood Cell Count 14.9 10^3/uL (4.8-10.8)
[2024-12-09 10:43] LABS: Blood Urea Nitrogen 15 mg/dl (7-17); Calcium 8.5 mg/dl (8.4-10.2); Carbon Dioxide 19 mmol/L (22-30); Chloride 107 mmol/L (98-107); Estimated Creatinine Clearance 74 ml/min; Glucose 102 mg/dl (70-99); Magnesium 2.1 mg/dl (1.6-2.3); Potassium 4.6 mmol/L (3.5-5.1); Sodium 136 mmol/L (135-145); eGFR > 60.00
[2024-12-09 12:37] LABS: Glucose - Point of Care 119 mg/dl (70-99)
--- NOTE | 2024-12-09 12:50 | CM ---
CM reviewed chart, patient seen bedside, reports no needs to CM at this time. PT recommendations outpatient PT, patient currently receiving outpatient therapy. CM will continue to follow for all discharge planning needs.
Plan; home with continuance of outpatient PT
--- NOTE | 2024-12-09 14:04 | W.PN.HOSP.TC ---
Today's Communication/Plan
-
see A/P
Assessment / Plan
Assessment / Plan
HPI: 69 yo F with PMH HTN, HLD, NIDDM, central hypothyroidism and adrenal insufficiency; p/w nausea, vomiting and diarrhea that started the day [employer]. Pt states that diarrhea is watery and foul smelling.
She denies to fever but c/o chills. She denies to abdominal pain, CP, SOB etc.
Of note, she completed course of antibiotic (cannot recall name) on Monday 12/04 for UTI.
A/P:
# nausea, vomiting and watery diarrhea
# weakness due to above
Diarrhea appear to have resolved
CT AP from admission largely unrevealing
DC further IVF
Improved MS, restart regular diet
Zofran PRN
COVID/Flu negative
C diff, Norovirus negative
follow stool culture given recent h/o infectious enteritis with E coli Shiga toxin
PT OT recc outpt therapy
# Noted h/o infectious enteritis in Sep 2024
E coli Shiga toxin detected, completed Rocephin and Flagyl at that time
# HTN
Cont [employer] meds with holding parameter
# HLD
Cont [employer] Crestor
# NIDDM
cover with ISS
# Central hypothyroidism
# Central adrenal insufficiency
cont [employer] levothyroxine
MS improved, stop further stress dose steroid and resume [employer] hydrocortisone
# cigarette smoking
Pt declined nicotine patch currently
DVT prophylaxis: Lovenox SQ
FC
Anticipated Discharge: Within 24 hours
Subjective/Interval History
-
Date of Service: December 09, 2024
Objective Data
-
Labs:
Laboratory Results
12/09/24 12/09/24
07:28 09:30
WBC 14.9 H
Hgb 9.8 L
Hct 28.6 L
Plt Count 214
Sodium Cancelled 136
Potassium Cancelled 4.6
Chloride Cancelled 107
Carbon Dioxide Cancelled 19 L
BUN Cancelled 15
Creatinine Cancelled 0.7
Glucose Cancelled 102 H
Calcium Cancelled 8.5
Vital Signs:
Vital Signs
Temp Pulse Resp BP Pulse Ox
36.8 C 62 18 123/58 99
12/09/24 07:00 12/09/24 07:00 12/09/24 07:00 12/09/24 07:00 12/09/24 07:00
I&O
12/08/24 12/09/24 12/10/24
06:59 06:59 06:59
Intake Total 1979
Balance 1979
Review of Systems
-
All other systems: Reviewed and negative
Abdomen/GI: Denies Diarrhea (resolved )
Physical Exam
-
General: Well Developed, Well Nourished, No Apparent Distress and Comfortable
HEENT: Normocephalic and Moist Mucous Membranes
Respiratory: Clear to Auscultation and Non Labored Respirations; Negative Accessory Resp Muscle Use
Cardiac: Regular Rhythm and S1/S2
GI: Soft and Nontender
Skin: Warm
Neuro: Awake, Alert and Oriented
Psych: Calm and Intact Judgement/Insight
Data Reviewed
-
CT Scan: Report Reviewed by me
Labs: Labs Reviewed by me
[2024-12-09 15:00] VITALS: BP 151/49
[2024-12-09 17:02] LABS: Glucose - Point of Care 129 mg/dl (70-99)
[2024-12-09] MEDS: CRESTOR 5 MG PO (17:32)
[2024-12-09] MEDS: LOVENOX 40 MG SC (17:33)
[2024-12-09 21:07] LABS: Glucose - Point of Care 101 mg/dl (70-99)
[2024-12-09 23:30] VITALS: BP 131/51
[2024-12-10] MEDS: SYNTHROID 75 MCG PO (05:39)
[2024-12-10 07:04] VITALS: BP 143/45
[2024-12-10 07:56] LABS: Glucose - Point of Care 89 mg/dl (70-99)
[2024-12-10 07:59] LABS: Hematocrit 29.4 % (37.0-47.0); Mean Corpuscular Hgb 34.8 pg (27.0-31.0); Mean Corpuscular Volume 102.4 fL (81.0-99.0); Mean Platelet Volume 11.6 fL (7.4-10.4); Platelet Count 232 10^3/uL (130-400); Red Blood Cell Count 2.87 10^6/uL (4.20-5.40); White Blood Cell Count 11.8 10^3/uL (4.8-10.8)
[2024-12-10 08:25] LABS: Blood Urea Nitrogen 11 mg/dl (7-17); Calcium 8.3 mg/dl (8.4-10.2); Carbon Dioxide 21 mmol/L (22-30); Chloride 108 mmol/L (98-107); Estimated Creatinine Clearance 74 ml/min; Glucose 70 mg/dl (70-99); Potassium 3.7 mmol/L (3.5-5.1); Sodium 136 mmol/L (135-145); eGFR > 60.00
[2024-12-10] MEDS: TOPROL XL 25 MG PO (08:55)
[2024-12-10] MEDS: HYDROCORTONE/CORTEF 20 MG PO (08:55)
[2024-12-10] MEDS: LASIX 20 MG PO (08:55)
[2024-12-10] MEDS: NORVASC 5 MG PO (08:55)
--- NOTE | 2024-12-10 08:59 | W.PN.HOSP.TC ---
Addendum entered and electronically signed by Kathy Taylor MD 12/10/24 13:03:
# Dehydration- resolved
Original Note:
Today's Communication/Plan
-
see A/P
Assessment / Plan
Assessment / Plan
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 Pt states that diarrhea is watery and foul smelling.
She denies to fever but c/o chills. She denies to abdominal pain, CP, SOB etc.
Of note, she completed course of antibiotic (cannot recall name) on Monday 12/04 for UTI.
A/P:
# nausea, vomiting and watery diarrhea
# weakness due to above
Diarrhea recurrent today 12/10
CT AP from admission largely unrevealing
off IVF
restarted regular diet and tolerating
Zofran PRN
COVID/Flu negative, C diff, Norovirus negative
follow stool culture given recent h/o infectious enteritis with E coli Shiga toxin
So far stool culture with negative Shiga toxin
PT OT recc outpt therapy
# Noted h/o infectious enteritis in Sep 2024
E coli Shiga toxin detected, completed Rocephin and Flagyl at that time
# HTN
Cont FIELD MECHANIC/SITE LEAD meds with holding parameter
# HLD
Cont FIELD MECHANIC/SITE LEAD Crestor
# NIDDM
cover with ISS
# Central hypothyroidism
# Central adrenal insufficiency
cont FIELD MECHANIC/SITE LEAD levothyroxine
MS improved, stop further stress dose steroid and resume FIELD MECHANIC/SITE LEAD hydrocortisone
# cigarette smoking
Pt declined nicotine patch currently
DVT prophylaxis: Lovenox SQ
FC
Anticipated Discharge: Within 24 hours
Subjective/Interval History
-
Date of Service: December 10, 2024
Objective Data
-
Labs:
Laboratory Results
12/10/24
07:30
WBC 11.8 H
Hgb 10.0 L
Hct 29.4 L
Plt Count 232
Sodium 136
Potassium 3.7
Chloride 108 H
Carbon Dioxide 21 L
BUN 11
Creatinine 0.7
Glucose 70
Calcium 8.3 L
Vital Signs:
Vital Signs
Temp Pulse Resp BP Pulse Ox
36.7 C 58 18 143/45 98
12/10/24 07:04 12/10/24 07:04 12/10/24 07:04 12/10/24 08:55 12/10/24 07:04
I&O
12/09/24 12/10/24 12/11/24
06:59 06:59 06:59
Intake Total 1979 960 / 960
Balance 1979 960 / 960
Review of Systems
-
All other systems: Reviewed and negative
Abdomen/GI: Reports Diarrhea (recurred today)
Physical Exam
-
General: Well Developed, Well Nourished, No Apparent Distress, Comfortable and Conversant
HEENT: Normocephalic and Moist Mucous Membranes
Respiratory: Clear to Auscultation and Non Labored Respirations; Negative Accessory Resp Muscle Use
Cardiac: Regular Rhythm and S1/S2
GI: Soft and Nontender
Skin: Warm
Neuro: Awake, Alert and Oriented
Psych: Calm and Intact Judgement/Insight
Data Reviewed
-
CT Scan: Report Reviewed by me
Labs: Labs Reviewed by me
--- NOTE | 2024-12-10 10:39 | PN.CDI ---
CDI
- -
CDI:
Physician Documentation Request
Admit Date: 12/07/24 19:00
Dear Doctor Brandon,
Please review the following and provide your response in the progress notes.
Clinical Indicators:
Pt admitted with weakness/Diarrhea
Documented per ED, ' Given IVF and zofran in dept with some improvement but continues to remain weak. Unable to stand/transfer on own. Had another episode of diarrhea while in [place]... Will continue IV re-hydration.... Weakness, Diarrhea,
Dehydration...'
BUN /Per JAN did get 3 L of IVFs
Please update the status of dehydration documented in ED:
Dehydration- resolved
Dehydration -still being monitored/teated
Dehydration -ruled out
Other ( please specify)
Use of terms such as suspected, likely, concern for, or probable (associated with a specific diagnosis that is being evaluated, monitored, or treated as if it exists) are acceptable and can be coded in the inpatient setting, when documented at the
time of discharge.
Thank you,
Smita Tinoco RN
CDI Specialist
[place] [facility]
Please use your independent medical judgment in providing your response.
[2024-12-10 12:01] LABS: Glucose - Point of Care 111 mg/dl (70-99)
[2024-12-10] MEDS: IMODIUM 2 MG PO (14:32)
[2024-12-10 15:33] VITALS: BP 127/48
[2024-12-10 17:01] LABS: Glucose - Point of Care 163 mg/dl (70-99)
[2024-12-10] MEDS: CRESTOR 5 MG PO (18:22)
[2024-12-10] MEDS: LOVENOX 40 MG SC (18:23)
[2024-12-10 21:14] LABS: Glucose - Point of Care 107 mg/dl (70-99)
[2024-12-10 23:30] VITALS: BP 139/48
[2024-12-11] MEDS: SYNTHROID 75 MCG PO (05:34)
[2024-12-11 07:16] LABS: Glucose - Point of Care 92 mg/dl (70-99)
[2024-12-11 07:48] VITALS: BP 156/46
[2024-12-11] MEDS: TOPROL XL 25 MG PO (07:52)
[2024-12-11] MEDS: HYDROCORTONE/CORTEF 20 MG PO (07:53)
[2024-12-11] MEDS: NORVASC 5 MG PO (07:53)
[2024-12-11] MEDS: LASIX 20 MG PO (07:53)
[2024-12-11 08:25] LABS: Hematocrit 29.7 % (37.0-47.0); Hemoglobin 10.3 g/dL (12.0-16.0); Mean Corp Hgb Conc. 34.7 g/dL (33.0-37.0); Mean Platelet Volume 11.6 fL (7.4-10.4); Platelet Count 230 10^3/uL (130-400); Red Blood Cell Count 2.94 10^6/uL (4.20-5.40); Red Cell Dist. Width 12.7 % (11.5-14.5); White Blood Cell Count 10.5 10^3/uL (4.8-10.8)
--- NOTE | 2024-12-11 09:23 | W.PN.HOSP.TC ---
Addendum entered and electronically signed by Kathy Taylor MD 12/11/24 13:34:
total DC time 36 min
Original Note:
Today's Communication/Plan
-
DC home today
Assessment / Plan
Assessment / Plan
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 Pt states that diarrhea is watery and foul smelling.
She denies to fever but c/o chills. She denies to abdominal pain, CP, SOB etc.
Of note, she completed course of antibiotic (cannot recall name) on Monday 12/04 for UTI.
A/P:
# nausea, vomiting and watery diarrhea, resolved. Likely due to acute viral GE
# weakness due to above, resolved
CT AP from admission largely unrevealing
off IVF
restarted regular diet and tolerating well
Zofran PRN
COVID/Flu negative, C diff, Norovirus negative
Stool culture negative (negative E coli Shiga toxin)
Imodium PRN
PT OT recc outpt therapy
# Noted h/o infectious enteritis in Sep 2024
E coli Shiga toxin detected, completed Rocephin and Flagyl at that time
# HTN
Cont BAGGAGE SECURITY CHECKER meds with holding parameter
# HLD
Cont BAGGAGE SECURITY CHECKER Crestor
# NIDDM
cover with ISS
# Central hypothyroidism
# Central adrenal insufficiency
cont BAGGAGE SECURITY CHECKER levothyroxine
MS improved, stop further stress dose steroid and resume BAGGAGE SECURITY CHECKER hydrocortisone
# cigarette smoking
Pt declined nicotine patch currently
DVT prophylaxis: Lovenox SQ
FC
DW at bedside
Anticipated Discharge: Today
Subjective/Interval History
-
Date of Service: December 11, 2024
Objective Data
-
Labs:
Laboratory Results
12/11/24
07:15
WBC 10.5
Hgb 10.3 L
Hct 29.7 L
Plt Count 230
Sodium Pending
Potassium Pending
Chloride Pending
Carbon Dioxide Pending
BUN Pending
Creatinine Pending
Glucose Pending
Calcium Pending
Vital Signs:
Vital Signs
Temp Pulse Resp BP Pulse Ox
36.7 C 60 18 156/46 97
12/11/24 07:48 12/11/24 07:53 12/11/24 07:48 12/11/24 07:53 12/11/24 07:48
I&O
12/10/24 12/11/24 12/12/24
06:59 06:59 06:59
Intake Total 2920 / 2920
Balance 2920 / 2920
Review of Systems
-
All other systems: Reviewed and negative
Abdomen/GI: Denies Diarrhea (resolved)
Physical Exam
-
General: Well Developed, Well Nourished, No Apparent Distress, Comfortable and Conversant
HEENT: Normocephalic and Moist Mucous Membranes
Respiratory: Clear to Auscultation and Non Labored Respirations; Negative Accessory Resp Muscle Use
Cardiac: Regular Rhythm and S1/S2
GI: Soft and Nontender
Skin: Warm
Neuro: Awake, Alert and Oriented
Psych: Calm and Intact Judgement/Insight
Data Reviewed
-
CT Scan: Report Reviewed by me
Labs: Labs Reviewed by me
[2024-12-11 09:33] LABS: Blood Urea Nitrogen 5 mg/dl (7-17); Calcium 8.5 mg/dl (8.4-10.2); Carbon Dioxide 23 mmol/L (22-30); Chloride 104 mmol/L (98-107); Estimated Creatinine Clearance 87 ml/min; Glucose 75 mg/dl (70-99); Potassium 3.3 mmol/L (3.5-5.1); Sodium 136 mmol/L (135-145); eGFR > 60.00
--- NOTE | 2024-12-11 11:23 | CM ---
CM reviewed chart, patient seen bedside with , for discharge today, spouse to transport home. IMM reviewed, signed, placed in chart. Patient provided with script for outpatient PT. CM will continue to follow for all discharge planning needs.
Plan; home with outpatient PT
--- NOTE | 2024-12-11 13:24 | W.DCSUMMARY ---
Discharge Summary
Discharge Data
Date of Admission: 12/07/24
Date of Discharge: 12/11/24
-
Pending Results: No
Hospital Course
Principal Diagnosis:
Nausea, vomiting and watery diarrhea, resolved. Likely due to acute viral gastroenteritis
Weakness due to above, resolved
Chronic Diagnoses:�
History of infectious enteritis in Sep 2024 (E coli Shiga toxin positive, completed Rocephin and Flagyl at that time)
Essential hypertension
Hyperlipidemia on Crestor
Hvd-xiidshk-xoizxaabu diabetes
Central hypothyroidism on levothyroxine
Central adrenal insufficiency, continue INTERNAL COMMUNICATIONS INTERN hydrocortisone
Cigarette smoking
Consultations:�
None
Procedures:�
None
Clinical course:�
This is a 69-year-old female with past medical history as stated above, who presented with nausea, vomiting, and watery diarrhea that started the day prior to admission.
Of note, she completed course of antibiotic (cannot recall name) on Monday 12/04 for UTI.
Problem 1:
Nausea, vomiting and watery diarrhea, resolved. Likely due to acute viral gastroenteritis.
Weakness due to above, resolved.
Her CT AP from admission was largely unrevealing.
Her COVID/Flu tests were negative; C diff and Norovirus were also negative.
She was restarted with regular diet and tolerated well.
Her stool culture was negative (negative E coli Shiga toxin).
She can continue with Imodium as needed for diarrhea control.
She can follow-up with outpatient PT OT for her weakness.
As for the rest of her medical problems, they were stable during her hospital stay.
Discharge Plan
-
Patient Disposition: Home (Routine Discharge)
Discharge Diagnosis/Procedures: Nausea, vomiting and watery diarrhea, resolved. Likely due to acute viral gastroenteritis (stool culture negative);
weakness due to gastroenteritis, resolved
Condition: Good
Diet: As tolerated
Activity: As tolerated
Driving Restrictions: As prior to admission
Blood Work: BMP in 1 week with your PCP
Referrals:
Kavitha Escalera MD [Family Provider] - in less than 1 week
Prescriptions:
Continued
multivitamin [One Daily Essential] 1 EACH tablet
1 ea PO DAILY
metoprolol succinate 25 mg Tablet Extended Release 24 Hr
25 mg PO DAILY
furosemide 20 mg Tablet
20 mg PO DAILY
hydrocortisone 10 mg Tablet
20 mg PO DAILY
rosuvastatin [Crestor] 5 mg Tablet
5 mg PO QPM
Patient Comments:
no pharamcy fills in 2023
amlodipine 5 mg Tablet
5 mg PO DAILY 30 Days Qty: 30 0RF
levothyroxine [Synthroid] 75 mcg Tablet
75 mcg PO DAILY
nicotine 14 mg/24 hr patch 24 hour
14 mg transdermal DAILY
potassium chloride 20 mEq tablet,ER particles/crystals
20 meq PO DAILY
Discharge Orders:
Discharge Patient (As Directed); Ordered 12/11/24
Ordered By: Kathy Taylor
Discharge Date and Time
Discharge Date/Time: 12/11/24 11:59
Print Language: LUXEMBOURGER
== END 2024-12-11 11:59 | disposition home or self-care (01) | DRG 392 ==
LOC: 4 WEST ACU 19:00
PROVIDERS: Nurse Practitioner; ADMITTING PHYSICIAN Internal Medicine; EMERGENCY PHYSICIAN Emergency Medicine; FAMILY PHYSICIAN Family Medicine
DX: A08.4 Viral intestinal infection, unspecified (principal); E27.40 Unspecified adrenocortical insufficiency; Z11.52 Encounter for screening for COVID-19; I10 Essential (primary) hypertension; E78.00 Pure hypercholesterolemia, unspecified; E11.9 Type 2 diabetes mellitus without complications; E03.8 Other specified hypothyroidism; F17.210 Nicotine dependence, cigarettes, uncomplicated; E86.0 Dehydration
CPT/HCPCS: 74177; 80048; 80053; 82962; 83036; 83605; 83690; 83735; 85025; 85027; 87040; 87045; 87046; 87324; 87427; 87449; 87502; 87798; 87811; 96361; 96374; 97161; 97165; 99285; Q9967

== ENCOUNTER 2024-12-31 13:01 | Outpatient (RCR) | payer MEDICARE, SELFPAY | END 2024-12-31 23:59 | disposition home or self-care (01) | LOC: RPT 13:01 | PROVIDERS: ATTENDING PHYSICIAN Family Medicine | DX: R26.89 Other abnormalities of gait and mobility (principal); Z73.6 Limitation of activities due to disability; M62.81 Muscle weakness (generalized); R26.2 Difficulty in walking, not elsewhere classified | CPT/HCPCS: 97110; 97112; 97116; 97164; 97530 ==

== ENCOUNTER 2025-01-07 09:48 | Outpatient (RCR) | payer MEDICARE, SELFPAY | END 2025-01-07 23:59 | disposition home or self-care (01) | LOC: RPT 09:48 | PROVIDERS: ATTENDING PHYSICIAN Family Medicine | DX: R26.89 Other abnormalities of gait and mobility (principal); Z73.6 Limitation of activities due to disability; M62.81 Muscle weakness (generalized); R26.2 Difficulty in walking, not elsewhere classified | CPT/HCPCS: 97110; 97112; 97116; 97530 ==

== ENCOUNTER → 2025-03-09 10:06 | Outpatient (REF) | payer MEDICARE, SELFPAY | LOC: HWRCS 10:06 | PROVIDERS: ATTENDING PHYSICIAN Internal Medicine; FAMILY PHYSICIAN Family Medicine | DX: I35.0 Nonrheumatic aortic (valve) stenosis (principal); I10 Essential (primary) hypertension; I45.10 Unspecified right bundle-branch block | CPT/HCPCS: 93306 ==

== ENCOUNTER 2025-03-20 12:35 | Inpatient (IN) | payer MEDICARE, SELFPAY ==
[2025-03-20] VITALS (39 sets, daily range): BP systolic 69–167; BP diastolic 21–70; BMI 29.3; BMI 29.8
[2025-03-20] MEDS: TYLENOL 1000 MG PO (09:49)
[2025-03-20 09:55] LABS: % Basophils 0.4 % (0-2); % Immature Granulocytes 0.5 % (0-0.5); % Lymphocytes 13.1 % (20.5-51.1); % Monocytes 5.3 % (1.7-9.3); % Neutrophils 79.7 % (42.2-75.2); Absolute Basophils 0.1 10^3/uL (0-0.2); Absolute Eosinophils 0.2 10^3/uL (0-0.7); Absolute Immature Granulocytes 0.1 10^3/uL (0-0.05); Absolute Monocytes 0.8 10^3/uL (0.1-0.6); Absolute Neutrophils 12.3 10^3/uL (1.4-6.5); Hematocrit 34.4 % (37.0-47.0); Hemoglobin 12.1 g/dL (12.0-16.0); Mean Corp Hgb Conc. 35.2 g/dL (33.0-37.0); Mean Corpuscular Hgb 35.4 pg (27.0-31.0); Mean Corpuscular Volume 100.6 fL (81.0-99.0); Mean Platelet Volume 11.7 fL (7.4-10.4); Nucleated Red Blood Cells % 0.1 %; Platelet Count 228 10^3/uL (130-400); Red Blood Cell Count 3.42 10^6/uL (4.20-5.40); Red Cell Dist. Width 13.3 % (11.5-14.5); White Blood Cell Count 15.4 10^3/uL (4.8-10.8)
[2025-03-20 10:07] LABS: Lactic Acid 2.5 mmol/L (0.7-2.0)
[2025-03-20 10:08] LABS: ALT (SGPT) 23 U/L (0-35); AST (SGOT) 23 U/L (14-36); Albumin 3.9 g/dl (3.5-5.0); Alkaline Phosphatase 60 U/L (38-126); Blood Urea Nitrogen 18 mg/dl (7-17); Calcium 8.8 mg/dl (8.4-10.2); Carbon Dioxide 26 mmol/L (22-30); Chloride 109 mmol/L (98-107); Estimated Creatinine Clearance 60 ml/min; Glucose 102 mg/dl (70-99); Potassium 3.5 mmol/L (3.5-5.1); Sodium 143 mmol/L (135-145); Total Bilirubin 0.9 mg/dl (0.2-1.3); Total Protein 6.7 g/dl (6.3-8.2); eGFR > 60.00
--- NOTE | 2025-03-20 10:27 | ED.GENMED ---
History of Present Illness
General
Chief Complaint: Fatigue
Source: patient
Exam Limitations: none
Time Seen by Provider: 03/20/25 10:20
History of Present Illness
History of Present Illness:
See MDM
Past History
Past History
ED Past Medical History: HTN, Hypercholesterolemia and NIDDM
ED Past Surgical History: Other (Skin excision)
Social History
Tobacco: Smoker
Alcohol: None
Drug: None
Personal:
Living: with family
Employment: Retired
Family History
Family History: Other (Noncontributory)
Phy Exam
Physical Exam
Physical Exam:
See MDM
Sepsis
Sepsis Screening
Sepsis Assessment: Severe Sepsis
Sepsis Screening: Lactate >2mmol/L
Sepsis Screen
Sepsis Screen: Severe Sepsis
Date: 03/20/25
Time: 10:30
Course
Orders/Labs/Results
Orders:
Orders
03/20/25 09:45
CMP [Comprehensive Metabolic Panel] Urgent
Complete Blood Count/With Diff Urgent
Lactic Acid Urgent
Blood Culture Urgent
FRANCIA Source: Blood/Venous
Specimen Description:
03/20/25 09:47
Acetaminophen [Tylenol] 1,000 mg .ROUTE .STK-MED ONE
03/20/25 09:49
Acetaminophen [Tylenol] 1,000 mg PO NOW STA
03/20/25 10:24
Urinalysis Reflex To Culture Urgent
CefTRIAXone [Rocephin] 1,000 mg IV NOW STA
Abnormal Lab Results
03/20/25
09:45
WBC 15.4 H 10^3/uL
(4.8-10.8)
RBC 3.42 L 10^6/uL
(4.20-5.40)
Hct 34.4 L %
(37.0-47.0)
MCV 100.6 H fL
(81.0-99.0)
MCH 35.4 H pg
(27.0-31.0)
MPV 11.7 H fL
(7.4-10.4)
Abs Immat Gran (auto) 0.1 H 10^3/uL
(0-0.05)
Absolute Neuts (auto) 12.3 H 10^3/uL
(1.4-6.5)
Absolute Monos (auto) 0.8 H 10^3/uL
(0.1-0.6)
Neutrophils % 79.7 H %
(42.2-75.2)
Lymphocytes % 13.1 L %
(20.5-51.1)
Chloride 109 H mmol/L
(98-107)
BUN 18 H mg/dl
(7-17)
Glucose 102 H mg/dl
(70-99)
Lactic Acid 2.5 H mmol/L
(0.7-2.0)
03/20/25 09:45
03/20/25 09:45
Vital Signs
Initial and Last Documented VS:
Initial Vital Signs
Temp Pulse Resp BP Pulse Ox
102.9 F H 102 18 119/44 97
03/20/25 09:32 03/20/25 09:32 03/20/25 09:32 03/20/25 09:32 03/20/25 09:32
Last Documented Vital Signs
Temp Pulse Resp BP Pulse Ox
102.9 F H 102 18 119/44 97
03/20/25 09:32 03/20/25 09:32 03/20/25 09:32 03/20/25 09:32 03/20/25 09:32
MDM/Problems Addressed
Differential Diagnosis Includes:
HPI and MDM Narrative:
69-year-old female presenting with fever and chills. Patient has been dealing with dysuria and frequency over the past several days. She called her PCP and was prescribed Macrobid. She took 1 dose last night. She woke up with chills. Patient
found to be febrile. Blood work was started prior to my assessment and patient has leukocytosis and elevated lactic acid. She denies cough or shortness of breath or back pain. She has a soft and nontender abdomen. Urinalysis still pending but
will empirically treat with Rocephin with presumed pyelonephritis. Given no flank pain, doubt kidney stone pathology
Physical exam
General: Weak and uncomfortable
HEENT: protecting airway
Neck: appears supple
CV: No evidence of cyanosis
Resp: No accessory muscle use. Lungs clear
Abd: Non-distended. Soft and nontender
Extremities: No deformities
Neuro: alert
Psych: Normal affect
Skin: Warm
Problems Addressed including Acute and Chronic Conditions affecting care:
1. Pyelonephritis
Acuity: acute
Prognosis: stable
Details: Given the fever and hypotension, will start Rocephin and fluids
Updates
Differential Diagnosis (but not limited to): Pyelonephritis, UTI, septicemia
Testing considered: CT abdomen/pelvis
Drug therapy (if applicable): OTC meds, please see d/c instruction regarding Rx drugs
Amount and/or Complexity of Data Reviewed
Clinical info obtained from: Patient
External data reviewed: N/A
Labs I independently reviewed (but not limited to): Leukocytosis
Radiology: N/A
Pulse Ox: not hypoxic
EKG independently reviewed: N/A
Wildland Firefighter: N/A
Critical Care: N/A
Risk of Complication:
Social Determinants of health: Good social support
Discussed with other providers: Hospitalist
Escalation of Care includes Admit/Obs: Given UTI symptoms and concern for sepsis, will admit for fluids and antibiotic
Occasional wrong word or 'sound a like' substitutions may have occurred due to the inherent limitations of voice recognition software. Read the chart carefully and recognize, using context, where substitutions have occurred.
*Critical Care Note
Total Time (30-74mins, 75-104mins- exclusive of procedures): Not Applicable
ED Attending Note
-
Portions of this chart may have been created with voice recognition software.� Occasional wrong word or��sound alike� substitutions may have occurred due to the inherent limitations of voice recognition software.
Discharge Plan
Departure
Patient Disposition: Admit
Date of Disposition: 03/20/25
Time of Disposition: 10:30
Admit to: Med/Surg
Presentation/result/management discussed w/ accepting MD/DO: Hospitalist
Discharge Problem:
Acute pyelonephritis
Prescriptions:
No Action
multivitamin [One Daily Essential] 1 EACH tablet
1 ea PO DAILY
metoprolol succinate 25 mg Tablet Extended Release 24 Hr
25 mg PO DAILY
furosemide 20 mg Tablet
20 mg PO DAILY
hydrocortisone 10 mg Tablet
20 mg PO DAILY
rosuvastatin [Crestor] 5 mg Tablet
5 mg PO QPM
Patient Comments:
no pharamcy fills in 2023
amlodipine 5 mg Tablet
5 mg PO DAILY 30 Days Qty: 30 0RF
levothyroxine [Synthroid] 75 mcg Tablet
75 mcg PO DAILY
nicotine 14 mg/24 hr patch 24 hour
14 mg transdermal DAILY
potassium chloride 20 mEq tablet,ER particles/crystals
20 meq PO DAILY
Referrals:
Kavitha Escalera MD [Family Provider] -
Interventions
Interventions:
*Risk Screen - Suicide Last Done: 03/20/25 09:32
*General Assessment Last Done: 03/20/25 09:32
*Neglect/Abuse Screening Last Done: 03/20/25 09:32
*ED- Fall Risk Assessment Last Done: 03/20/25 09:32
*ED COVID-19 Vaccine History Last Done: 03/20/25 09:32
Discharge Date and Time
Print Language: LEBANESE
[2025-03-20] MEDS: ROCEPHIN 1000 MG IV (10:41)
--- NOTE | 2025-03-20 10:44 | HPS.HSE ---
Family Physician
-
Family Physician: Kavitha Escalera
Chief Complaint
-
Dysuria
History of Present Illness
69F Nicotine dependence HTN, HLD, central hypothyroidism, adrenal insufficiency, Severe AR undergoing outpt workup with cardio here dysuria started day prior to presentation. Patient was prescribed macrobid by pcp. She had only taken one dose.
Developed fever chills nausea vomiting next morning prompting ED visit. Initial evaluation concerning for sepsis Fever tachycardia leukocytosis lactic acid 2.5. Physical exam was also notable for Lt CVA tenderness. Stable respiratory status on
room air. Fever 102.9 improved with 1000 mg once Tylenol. Empiric abx ceftriaxone was started. Patient received 1L fluid bolus, blood pressure however proceeded to drop systolic 70s, patient progressively lethargic though remain conversant
coherent. 2nd 1L bolus and stress dose steroids ordered. Admitted to ICU for septic shock 2/2 UTI/Lt Pyelonephritis.
Medical History
Past Medical History
Past Medical History: Reports Other (as above)
Past Surgical History: Reports Other (as abvoe)
Social History
Tobacco: Former Smoker
Alcohol: None
Drug: None
Personal:
Living: With Family
Employment: Retired
Family History
Family History: Not pertinent (Reviewed)
Allergies / Home Medications
Allergies reflects when Allergies were last updated in [facility].
Home Medications with original date entered in [facility]
Allergy/Medication List:
Allergies
Allergy/AdvReac Type Severity Reaction Status Date / Time
No Known Allergies Allergy Verified 12/07/24 15:26
Home Medications
multivitamin (One Daily Essential tablet) 1 ea PO DAILY Supplement 01/24/19
metoprolol succinate 25 mg tablet,extended release 24 hr 25 mg PO DAILY Blood pressure 05/26/22
furosemide 20 mg tablet 20 mg PO DAILY Fluid retention/Swelling 03/04/23
hydrocortisone 10 mg tablet 20 mg PO DAILY Anti-inflammatory 03/04/23
rosuvastatin 5 mg tablet (Crestor) 5 mg PO QPM High Cholesterol 09/12/24
levothyroxine 75 mcg tablet (Synthroid) 75 mcg PO DAILY Thyroid 09/17/24
nicotine 14 mg/24 hr daily transdermal patch 14 mg transdermal DAILY Smoking Cessation 12/08/24
Review of Systems
-
A 12 point ROS was completed and negative except as noted: Yes
Constitutional: Reports Other (As below)
Physical Exam
Vital Signs
Vital Signs
Temp Pulse Resp BP Pulse Ox
102.9 F H 102 18 119/44 97
03/20/25 09:32 03/20/25 09:32 03/20/25 09:32 03/20/25 09:32 03/20/25 09:32
Physical Exam
General: Other (As below)
Laboratory Results
-
03/20/25 09:45
03/20/25 09:45
Laboratory Results
Lactic Acid 2.5 mmol/L (0.7-2.0) H 03/20/25 09:45
Total Bilirubin 0.9 mg/dl (0.2-1.3) 03/20/25 09:45
AST 23 U/L (14-36) 03/20/25 09:45
ALT 23 U/L (0-35) 03/20/25 09:45
Alkaline Phosphatase 60 U/L (38-126) 03/20/25 09:45
Impression/Plan
-
ROS
General: Reports fevers chills
Neuro: Denies seizure shaking loss of consciousness dizziness vertigo
Psych: denies depression hallucinations confusion manic episodes
Endocrine: Denies polyuria polydipsia polyphagia heat/cold intolerance
HEENT: Denies blindness visual disturbances epistaxis
Pulmonary: denies coughing hemoptysis sneezing sob dyspnea on exertion
Cardiovascular: denies chest pain palpitations leg swelling
Hematology: denies signs symptoms of anemia easy bruising/bleeding
Gastrointestinal: Reports nausea vomiting denies diarrhea constipation hematemesis hematochezia melena
Genito-Urinary: Reports dysuria
Musculoskeletal: denies joint pain weakness
Dermatology: denies rash laceration bruising
Physical Exam
General: No pallor, cyanosis, or jaundice.
HEENT: Throat clear. PERRLA Normocephalic atraumatic
NECK: Supple. No JVD Carotid Bruits
RESPIRATORY: Lungs clear to auscultation. No crackles wheezes stridor
CVS: S1, S2 normal. RRR. Systolic murmur 3 out of 6
ABDOMEN: Soft, non-tender. No distension. BS+/normal. Left CVA tenderness
EXTREMITIES: No peripheral cyanosis or edema.
MANPOWER DEVELOPMENT MANAGER: Lethargic but arousable oriented x 3 conversant coherent
IMPRESSION:
69F Nicotine dependence HTN, HLD, central hypothyroidism, adrenal insufficiency, Severe AR undergoing outpt workup with cardio here dysuria started day prior to presentation. Patient was prescribed macrobid by pcp. She had only taken one dose.
Developed fever chills nausea vomiting next morning prompting ED visit. Initial evaluation concerning for sepsis Fever tachycardia leukocytosis lactic acid 2.5. Physical exam was also notable for Lt CVA tenderness. Stable respiratory status on
room air. Fever 102.9 improved with 1000 mg once Tylenol. Empiric abx ceftriaxone was started. Patient received 1L fluid bolus, blood pressure however proceeded to drop systolic 70s, patient progressively lethargic though remain conversant
coherent. 2nd 1L bolus and stress dose steroids ordered. Admitted to ICU for septic shock 2/2 UTI/Lt Pyelonephritis.
PLAN:
#UTI
#left pyelonephritis
#Severe sepsis versus septic shock
#History adrenal insufficiency
#Lactic acidosis
ICU admit, hide tanner eval requested
Received ceftriaxone, broaden to empiric Vanco and Zosyn
follow cultures
Received 1 L bolus, follow-up response second liter bolus
Stress dose steroids initiated
Levophed prn MAP<65
Clear liquid diet for now advance as tolerated
Follow-up repeat lactic acid
IV tylenol prn fever
morphine prn mod severe pain
check CT abd/pelvis w/ IV contrast for possible obstructive uropathy/stone
#Severe AR
monitor respiratory status closely on IVF
#Hypothyroidism
Continue Synthroid
#Hypertension
#Hyperlipidemia
Hold antihypertensives at this time due to concern shock, this includes Lasix and metoprolol
#Nicotine dependence
Continue nicotine patch
dvt ppx Lovenox
gi ppx Protonix
Full code
Total Critical Care Time__70___ minutes. I was immediately available to the patient and staff. I personally examined, reviewed labs, diagnostic images/reports, interpretations, treatment plans, discussed patient care with other providers, patient
and her Bill, entered orders as appropriate and documented the medical record.
[2025-03-20] MEDS: NSS 1000 IV ×3 (11:32→14:40)
[2025-03-20] MEDS: MOTRIN 400 MG PO (12:27)
[2025-03-20] MEDS: SOLU-CORTEF 50 MG IV ×2 (12:39→17:57)
--- NOTE | 2025-03-20 12:47 | PHA.VAN.IN ---
Assessment
- Assessment
Renal Function: Appears similar to baseline
AUC Dosing Plan
- Dosing Variables
Dosing Weight (kg): 80
Dosing CrCl (ml/min): 60
Vd coefficient (L/kg): 0.7
- Empiric Dosing
Initial / Loading Dose: 2000mg 03/20
Maintenance Regimen: 1500mg q24h
Estimated AUC (mcg*h/mL): 514
Estimated Peak (mcg*h/mL): 36.8
Estimated Trough (mcg/ml): 10.9
Estimated Half Life (H): 12.8
- Monitoring
No levels ordered at this time: consider next few days
Pharmacokinetics Vancomycin I
- -
Patient Age: 69
Patient Sex: Female
Vancomycin Day #: 1
Indication: Genito-Urinary Tract
Requesting Provider: Dr. Claudio
Pertinent Antimicrobial Allergies:
nkda
Height / Weight:
Height 5 ft 5 in
Actual Weight 80 kg
IBW in k
- Vital Signs / Lab Results
Temp Pulse Resp BP Pulse Ox
101.4 F H 85 27 78/49 95
03/20/25 10:50 03/20/25 12:23 03/20/25 12:23 03/20/25 12:10 03/20/25 12:23
Lab Results - Hematology
03/20/25
09:45
WBC 15.4 H
Lab Results - Chemistry
03/20/25
09:45
BUN 18 H
Creatinine 0.9
Estimated Creat Clear 60
Albumin 3.9
03/20/25
09:45
Lactic Acid 2.5 H
[2025-03-20] MEDS: LEVOPHED 250 IV (12:57)
--- NOTE | 2025-03-20 13:28 | CON.INTV ---
Consultation
Consultation Request
Date/Time Consultation Requested: 03/20/2025 - 123
Date/Time Consultation Performed: 03/20/2025 - 2
Requesting Provider: Dr. Claudio
Performing Provider: Dr. Hernández
Reason for Consultation: Septic shock
Medical History
-
Chief Complaint: Weakness + fatigue
History of Present Illness:
69-year-old female former tobacco smoker with past medical history of hypertension, hyperlipidemia, DM type II, recurrent UTI, colovesicular fistula with diverticular disease s/p takedown of colovesicular fistula (03/2023), history of perirectal
abscess, valvular heart disease, hypothyroidism, and history of Rathke's cleft cyst who presented with weakness, fatigue, vomiting and painful urination. Her PCP had recently prescribed her Macrobid and she took 1 dose. She developed fevers,
chills, nausea and vomiting which is what prompted her to come to the hospital. In the ER she was febrile to 102.9 �F, pulse rate 102, respiratory rate 18, BP 119/44 and saturating 97% on room air. Labs showed leukocytosis to 15.4, lactate 2.5,
and urinalysis with +2 leukocyte esterase and >100 urine WBC. Blood and urine cultures collected. CT abdomen/pelvis obtained showing perinephric fat stranding about both kidneys, left greater than right concerning for pyelonephritis. She was
given 2 L NS 0.9% in the ER, ibuprofen, acetaminophen and ceftriaxone. Unfortunately she continued to be hypotensive with SBP in the 60�70s. Levophed was started and she was admitted to the ICU. Account Retention Representative services consulted for additional
management/recommendations.
When I saw the patient, she was resting in bed in no acute distress. Heart rate 73, BP 138/52, and saturating 98% on 1 L/min. She was currently off Levophed. She appeared tired but was able to answer my questions appropriately. Currently denies
abdominal pain, shortness of breath or chest pain.
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
colovesicular fistula with diverticular disease s/p sigmoidoscopy with takedown of colovesical fistula (03/2023), history of perirectal abscess
PSHx: Pedal analysis excision, sigmoidectomy and takedown of Vesco�colonic fistula (03/07/2023
Past Medical History
Past Medical History: Other (Above as per HPI)
Past Surgical History: Other (Above as per HPI)
Social History
Tobacco: Former Smoker (Previously smoked 1 PPD since 18 years old, has quit many times)
Alcohol: Former
Drug: None
Personal:
Living: With Family
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
Family History
Family History: Cancer (Father: Lung cancer; mother: Liver cancer) and Diabetes (Father + mother)
Allergies / Home Medications
Allergies
Allergy/AdvReac Type Severity Reaction Status Date / Time
No Known Allergies Allergy Verified 12/07/24 15:26
Home Medications
�Medication �Instructions �Recorded �Confirmed �Last Taken �Type
multivitamin (One Daily Essential 1 ea PO DAILY Supplement 01/24/19 03/20/25 09/11/24 History
tablet)
metoprolol succinate 25 mg 25 mg PO DAILY Blood pressure 05/26/22 03/20/25 09/11/24 History
tablet,extended release 24 hr
furosemide 20 mg tablet 20 mg PO DAILY Fluid 03/04/23 03/20/25 09/11/24 History
retention/Swelling
hydrocortisone 10 mg tablet 20 mg PO DAILY Anti-inflammatory 03/04/23 03/20/25 09/11/24 History
rosuvastatin 5 mg tablet (Crestor) 5 mg PO QPM High Cholesterol 09/12/24 03/20/25 09/11/24 History
levothyroxine 75 mcg tablet 75 mcg PO DAILY Thyroid 09/17/24 03/20/25 Unknown History
(Synthroid)
nicotine 14 mg/24 hr daily 14 mg transdermal DAILY Smoking 12/08/24 03/20/25 Unknown History
transdermal patch Cessation
Review of Systems
-
History Source: Patient
All other systems: Negative unless noted
Vitals / Labs / Diagnostic Testing
Vital Signs
Temp Pulse Resp BP Pulse Ox
100.0 F 80 26 103/34 96
03/20/25 14:00 03/20/25 13:40 03/20/25 13:40 03/20/25 13:40 03/20/25 13:40
Lab Data
03/20/25 09:45
03/20/25 09:45
Diagnostic Testing:
Physical Exam
-
HEENT: Normocephalic and Anicteric
Cardiovascular: S1/S2 and Peripheral Edema (+1 lower extremity pitting edema bilaterally)
Respiratory: Clear, Wheeze (negative), Rales (negative), Rhonchi (negative) and Non-Labored Respirations
GI: Soft, Non Distended, Non Tender and Normal Bowel Sounds
Neurology: Awake, Alert and Tremors (negative)
Skin: Warm and Dry
General: Respiratory Distress (negative), Comfortable, Chills (negative) and Sweats (negative)
Assessment
-
Assessment: 69-year-old female former tobacco smoker with past medical history of hypertension, hyperlipidemia, DM type II, recurrent UTI, colovesicular fistula with diverticular disease s/p takedown of colovesicular fistula (03/2023), history of
perirectal abscess, valvular heart disease, hypothyroidism, and history of Rathke's cleft cyst who presented with weakness, fatigue, vomiting and painful urination. Her PCP had recently prescribed her Macrobid and she took 1 dose. She developed
fevers, chills, nausea and vomiting which is what prompted her to come to the hospital. In the ER she was febrile to 102.9 �F, pulse rate 102, respiratory rate 18, BP 119/44 and saturating 97% on room air. Labs showed leukocytosis to 15.4, lactate
2.5, and urinalysis with +2 leukocyte esterase and >100 urine WBC. Blood and urine cultures collected. CT abdomen/pelvis obtained showing perinephric fat stranding about both kidneys, left greater than right concerning for pyelonephritis. She was
given 2 L NS 0.9% in the ER, ibuprofen, acetaminophen and ceftriaxone. Unfortunately she continued to be hypotensive with SBP in the 60�70s. Levophed was started and she was admitted to the ICU. Account Retention Representative services consulted for additional
management/recommendations.
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
history of UTI, colovesicular fistula with diverticular disease s/p sigmoidoscopy with takedown of colovesical fistula (03/2023), history of perirectal abscess
Impression:
#Septic shock due to UTI
#Complicated UTI
#Lactic acidosis
#Former tobacco smoker
#History of recurrent UTI
#Colovesicular fistula with diverticular disease s/p sigmoidoscopy with takedown of colovesical fistula (03/2023)
#History of suspected adrenal insufficiency on hydrocortisone as an outpatient
Plan:
- Patient was admitted to the ICU due to significant hypotension with shock state requiring vasopressors
- Continue Levophed and wean down as tolerated while keeping MAP >65
- If pressor requirements increase towards 10 mcg/min, then start vasopressin
- Continue with stress dose steroids with eventual transition back to her home hydrocortisone dose
- Continue with broad-spectrum antibiotics, currently with vancomycin + Zosyn
- Follow-up blood cultures + urine cultures
- Maintain SpO2 >90-94%
- Continue aspiration precautions; keep HOB >30-45�
- Replete electrolytes with K>4, Mg>2
- Maintain euglycemia with goal BG 140-180 with ISS; HbA1c: 5.3 on 12/08/2024
- Given her recent tobacco use with history of quitting multiple times and then restarting again, continue with nicotine patch (which is also a home med)
- Trend H/H and transfuse if needed to keep Hb>7g/dL; keep plt>20k, unless there is concern for bleeding then keep plt>50k
- prn nebulized bronchodilators - not currently bronchospastic
- Incentive spirometer encouraged 10x per hour for at least 4 hrs a day
- DVT ppx: LMWH
Code status: Full code
Continue ICU level care for this critically ill patient.
Critical care statement: A total of 36 minutes of critical care time was provided for this patient today. This includes management of unstable vital signs, evaluation of the patient at bedside, reviewing the patient's pertinent medical records
including radiographs, microbiology, laboratory evaluations, and discussion with primary team, consultants, pharmacy, nutrition, physical therapy, case management, charge nurse, critical care nursing, and respiratory therapy.
Data:
CT abdomen/pelvis with IV contrast 03/20/2025:
Mild perinephric fat stranding about both kidneys, left greater than right, nonspecific. Findings could be secondary to an ascending urinary tract infection in the appropriate clinical setting, but no appreciable striated renal hypoenhancement to
confirm pyelonephritis by CT.
Fluid attenuation in the colon suggesting a diarrheal illness.
[2025-03-20] MEDS: VANCOCIN 540 MG IV (13:33)
[2025-03-20 13:42] LABS: Lactic Acid 1.8 mmol/L (0.7-2.0)
--- NOTE | 2025-03-20 14:40 | PTCARENOTE ---
Received patient from ED, pt is A&Ox4, on RA, NSR on monitor, Levophed at 2mcg/min, Bladder scanned and showed 482mL, Performed straight cath and sent UA.
[2025-03-20 15:22] LABS: Urine Albumin 3+ (Neg - Trace); Urine Bilirubin Negative (Negative); Urine Character Clear (Clear); Urine Color Yellow; Urine Glucose Negative (Negative); Urine Ketone Negative (Negative); Urine Leukocyte 2+ (Negative); Urine Nitrite Negative (Negative); Urine Occult Blood 1+ (Negative); Urine Urobilinogen Negative (Neg - 1+)
[2025-03-20 15:42] LABS: Urine White Cell >100 /HPF (0-5)
[2025-03-20 15:43] LABS: Urine Bacteria Few (Negative)
[2025-03-20] MEDS: PROTONIX IV 40 MG IV (15:45)
[2025-03-20] MEDS: NSS (PRESERVATIVE FREE) 10 ML IV (15:45)
--- NOTE | 2025-03-20 16:00 | PTCARENOTE ---
Reassessed the patient, Levophed is off, patient's BP stable. No acute changes noted.
[2025-03-20] MEDS: DESENEX/MITRAZOL/ZEASORB 1 APPLIC TOPICAL (16:02)
[2025-03-20 16:04] LABS: INR 1.16; PT 15.1 Sec (11.4-14.6)
[2025-03-20 16:05] LABS: APTT 28.2 Sec (23.4-35.0)
[2025-03-20] MEDS: ZOSYN 50 IV ×2 (16:27→21:31)
[2025-03-20 17:28] LABS: Glucose - Point of Care 178 mg/dl (70-99)
[2025-03-20 17:34] LABS: Magnesium 1.8 mg/dl (1.6-2.3); Phosphorus 3.5 mg/dl (2.5-4.5)
[2025-03-20] MEDS: LOVENOX 40 MG SC (17:56)
[2025-03-20] MEDS: NOVOLOG FLEXPEN-LOW RESISTANCE 1 UNITS SC (18:24)
--- NOTE | 2025-03-20 21:00 | PTCARENOTE ---
Resumed care of pt overnight. Received pt asleep on 2L of O2 and satting at 98% pulse ox. Pt is A&Ox3, can move all 4 extremities, and can make needs known. Continuing IV Abx and IV steroid tx per orders.
[2025-03-20 21:33] LABS: Glucose - Point of Care 203 mg/dl (70-99)
[2025-03-20] MEDS: NOVOLOG FLEXPEN 2 UNITS SC (21:48)
[2025-03-21] VITALS (12 sets, daily range): BP systolic 112–158; BP diastolic 45–107; BMI 29.7
--- NOTE | 2025-03-21 00:20 | PTCARENOTE ---
Pt able to ambulate w/ x1 assistance and rolling walker to bathroom to void.
[2025-03-21] MEDS: SOLU-CORTEF 50 MG IV ×4 (00:38→22:52)
[2025-03-21] MEDS: ZOSYN 50 IV ×2 (03:20→07:24)
[2025-03-21 03:52] LABS: % Basophils 0.4 % (0-2); % Eosinophils 2.3 % (0-6); % Immature Granulocytes 0.5 % (0-0.5); % Monocytes 4.9 % (1.7-9.3); % Neutrophils 84.9 % (42.2-75.2); Absolute Basophils 0.1 10^3/uL (0-0.2); Absolute Eosinophils 0.3 10^3/uL (0-0.7); Absolute Immature Granulocytes 0.1 10^3/uL (0-0.05); Absolute Lymphocytes 0.8 10^3/uL (1.2-3.4); Absolute Monocytes 0.6 10^3/uL (0.1-0.6); Absolute Neutrophils 9.4 10^3/uL (1.4-6.5); Hematocrit 30.6 % (37.0-47.0); Hemoglobin 10.5 g/dL (12.0-16.0); Mean Corp Hgb Conc. 34.3 g/dL (33.0-37.0); Mean Corpuscular Hgb 34.4 pg (27.0-31.0); Mean Corpuscular Volume 100.3 fL (81.0-99.0); Mean Platelet Volume 11.9 fL (7.4-10.4); Nucleated Red Blood Cells % 0 %; Platelet Count 182 10^3/uL (130-400); Red Blood Cell Count 3.05 10^6/uL (4.20-5.40); Red Cell Dist. Width 13.2 % (11.5-14.5); White Blood Cell Count 11.1 10^3/uL (4.8-10.8)
--- NOTE | 2025-03-21 04:30 | PTCARENOTE ---
Upon reassessment pt is resting comfortably.
[2025-03-21 04:35] LABS: ALT (SGPT) 17 U/L (0-35); AST (SGOT) 18 U/L (14-36); Alkaline Phosphatase 51 U/L (38-126); Blood Urea Nitrogen 16 mg/dl (7-17); Calcium 7.7 mg/dl (8.4-10.2); Carbon Dioxide 23 mmol/L (22-30); Chloride 117 mmol/L (98-107); Estimated Creatinine Clearance 68 ml/min; Glucose 122 mg/dl (70-99); Phosphorus 3.6 mg/dl (2.5-4.5); Potassium 4.2 mmol/L (3.5-5.1); Sodium 144 mmol/L (135-145); Total Bilirubin 0.4 mg/dl (0.2-1.3); Total Protein 5.5 g/dl (6.3-8.2); eGFR > 60.00
[2025-03-21 04:48] LABS: Cortisol, Random 28.4 ug/dl
[2025-03-21] MEDS: VANCOCIN 530 MG IV (05:40)
[2025-03-21] MEDS: SYNTHROID 75 MCG PO (05:40)
[2025-03-21] MEDS: THERAGRAN 1 TABLET PO (07:24)
[2025-03-21] MEDS: DESENEX/MITRAZOL/ZEASORB 1 APPLIC TOPICAL (07:24)
[2025-03-21] MEDS: NICODERM TRANSDERMAL 14 MG TRANSDERM (07:25)
[2025-03-21] MEDS: PROTONIX IV 40 MG IV (07:25)
[2025-03-21] MEDS: NSS (PRESERVATIVE FREE) 10 ML IV (07:25)
--- NOTE | 2025-03-21 07:32 | W.PN.HOSP.TC ---
Addendum entered and electronically signed by Dalila Claudio MD 03/21/25 17:27:
Neg MRSA screen, neg urine cx
-Vancomycin discontinued and zosyn de-escalated to Ceftriaxone for now.
Addendum entered and electronically signed by Dalila Claudio MD 03/21/25 09:39:
Correction to documentation
Severe Aortic Stenosis mod Aortic Regurgitation
Original Note:
Today's Communication/Plan
-
Downgrade to Tele
cont abx
MRSA screen, discontinue vanco if neg
follow cultures
PT/OT
Assessment / Plan
Assessment / Plan
Physical Exam
General: No pallor, cyanosis, or jaundice.
HEENT: Throat clear. PERRLA Normocephalic atraumatic
NECK: Supple. No JVD Carotid Bruits
RESPIRATORY: Lungs clear to auscultation. No crackles wheezes stridor
CVS: S1, S2 normal. RRR. Systolic murmur 3 out of 6
ABDOMEN: Soft, non-tender. No distension. BS+/normal. Left CVA tenderness
EXTREMITIES: No peripheral cyanosis or edema.
SCRAPE GATHERER: AOx3 conversant coherent
IMPRESSION:
69F Nicotine dependence HTN, HLD, central hypothyroidism, adrenal insufficiency, Severe AR undergoing outpt workup with cardio here dysuria started day prior to presentation. Patient was prescribed macrobid by pcp. She had only taken one dose.
Developed fever chills nausea vomiting next morning prompting ED visit. Initial evaluation concerning for sepsis Fever tachycardia leukocytosis lactic acid 2.5. Physical exam was also notable for Lt CVA tenderness. Stable respiratory status on
room air. Fever 102.9 improved with 1000 mg once Tylenol. Empiric abx ceftriaxone was started. Patient received 1L fluid bolus, blood pressure however proceeded to drop systolic 70s, patient progressively lethargic though remain conversant
coherent. 2nd 1L bolus and stress dose steroids ordered. Admitted to ICU for septic shock 2/2 UTI/Lt Pyelonephritis.
PLAN:
#Septic Shock 2/2 complicated UTI
#left pyelonephritis
#History adrenal insufficiency
#Lactic acidosis resolved
ICU admit, physics instructor jessica appreciated
briefly required levophed since weaned off, significant clinical improvement, stable for downgrade to Tele hospital day 2
Received ceftriaxone, broaden to empiric Vanco and Zosyn
follow cultures NGTD
Received 2 L bolus in ED, mild lactic acidosis 2.5 resolved
On Stress dose steroids IV solu-cortef 50 mg q6h tapered to q8H with clinical improvement
Continue sliding scale while on high dose steroids (patient not diabetic)
diet advanced to regular, tolerating well
IV tylenol prn fever
morphine prn mod severe pain
CT abd/pelvis w/ IV contrast appreciated signs of ascending urinary tract infection, no stones noted. Also noted signs of diarrheal illness (no diarrhea noted since admission however)
#Severe AR
respiratory status remains stable on room air
No significant signs of heart failure at this time
Due for outpt Cardiac cath Saturday03/26/25 with [facility] cardiology (tommy texted group and notified that she is here. Anticipate that she will recover in time to follow up outpt for procedure).
#Hypothyroidism
Continue Synthroid
#Hypertension
#Hyperlipidemia
Initially held antihypertensives at the time due to concern shock, since resumed with holding parameters
Lasix
Metoprolol
#Nicotine dependence
Continue nicotine patch
dvt ppx Lovenox
gi ppx Protonix
Full code
Medically stable for downgrade to Tele
Discussed with patient. Bill called to provide update, no answer received, brief message detailing downgrade and call back number left.
I spent a total of 50 minutes with the patient or on the floor. More than 50% of this time involved counseling and coordination of care.
Anticipated Discharge: 24 - 48 hours
Subjective/Interval History
-
Date of Service: March 21, 2025
No acute distress, sitting up comfortably in chair. Overall reports significant improvement in symptoms overnight. Reports feeling well. Denies new acute issues. At this time.
Objective Data
-
Labs:
Laboratory Results
03/21/25
03:43
WBC 11.1 H
Hgb 10.5 L
Hct 30.6 L
Plt Count 182 D
Sodium 144
Potassium 4.2
Chloride 117 H
Carbon Dioxide 23
BUN 16
Creatinine 0.8
Glucose 122 H
Calcium 7.7 L
Total Bilirubin 0.4
AST 18
ALT 17
Alkaline Phosphatase 51
Vital Signs:
Vital Signs
Temp Pulse Resp BP Pulse Ox
98 F 71 16 158/58 98
03/21/25 03:38 03/21/25 07:00 03/21/25 07:00 03/21/25 07:00 03/21/25 07:00
I&O
03/20/25 03/21/25 03/22/25
06:59 06:59 06:59
Intake Total 2544.3 / 2937.3 393 / 393
Output Total 455 / 455
Balance 2089.3 / 2482.3 393 / 393
--- NOTE | 2025-03-21 07:58 | W.PN.INTV ---
Today's Communication / Plan
Recommendations
Maintain MAP >65
Wean down hydrocortisone dosing fairly rapidly back to her home hydrocortisone regimen
Follow-up blood and urine cultures
Continue antibiotics, currently on ceftriaxone
Goal BG >100 and <180
Okay to DC PPI as no longer in shock and does not appear to be a home medication
Nicotine patch
Okay to resume home antihypertensive medications now that she is hemodynamically stable
Patient is stable for downgrade out of ICU to telemetry. No additional recommendations at this time. Pizza Maker/Pulmonary service will now sign off. Please reconsult if there are any additional questions/concerns, or if patient's respiratory
status deteriorates.
Assessment
-
Assessment: 69-year-old female former tobacco smoker with past medical history of hypertension, hyperlipidemia, DM type II, recurrent UTI, colovesicular fistula with diverticular disease s/p takedown of colovesicular fistula (03/2023), history of
perirectal abscess, valvular heart disease, hypothyroidism, and history of Rathke's cleft cyst who presented with weakness, fatigue, vomiting and painful urination. Her PCP had recently prescribed her Macrobid and she took 1 dose. She developed
fevers, chills, nausea and vomiting which is what prompted her to come to the hospital. In the ER she was febrile to 102.9 �F, pulse rate 102, respiratory rate 18, BP 119/44 and saturating 97% on room air. Labs showed leukocytosis to 15.4, lactate
2.5, and urinalysis with +2 leukocyte esterase and >100 urine WBC. Blood and urine cultures collected. CT abdomen/pelvis obtained showing perinephric fat stranding about both kidneys, left greater than right concerning for pyelonephritis. She was
given 2 L NS 0.9% in the ER, ibuprofen, acetaminophen and ceftriaxone. Unfortunately she continued to be hypotensive with SBP in the 60�70s. Levophed was started and she was admitted to the ICU. Pizza Maker services consulted for additional
management/recommendations.
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
history of UTI, colovesicular fistula with diverticular disease s/p sigmoidoscopy with takedown of colovesical fistula (03/2023), history of perirectal abscess
Impression:
#Septic shock due to UTI � shock state resolved since afternoon of 03/20/2025
#Complicated UTI
#Lactic acidosis � resolved since afternoon of 03/20/2025
#Severe aortic stenosis with moderate AI (per TTE from 03/09/2025)
#Chronic diastolic heart failure (stage II diastolic dysfunction on TTE from 03/09/2025)
#Former tobacco smoker
#History of recurrent UTI
#Colovesicular fistula with diverticular disease s/p sigmoidoscopy with takedown of colovesical fistula (03/2023)
#History of suspected adrenal insufficiency on hydrocortisone as an outpatient
Plan:
- Patient was admitted to the ICU due to significant hypotension with shock state requiring vasopressors
- Patient was weaned off vasopressors and has remained off since the afternoon of 03/20
- Maintain MAP >65
- Continue with stress dose steroids with eventual transition back to her home hydrocortisone dose
- Continue with Abx -currently on ceftriaxone s/p IV vancomycin + Zosyn
- Follow-up blood cultures + urine cultures
- Maintain SpO2 >90-94%
- Continue aspiration precautions; keep HOB >30-45�
- Replete electrolytes with K>4, Mg>2
- Maintain euglycemia with goal BG 140-180 with ISS; HbA1c: 5.3 on 12/08/2024
- Given her recent tobacco use with history of quitting multiple times and then restarting again, continue with nicotine patch (which is also a home med)
- Trend H/H and transfuse if needed to keep Hb>7g/dL; keep plt>20k, unless there is concern for bleeding then keep plt>50k
- prn nebulized bronchodilators - not currently bronchospastic
- Incentive spirometer encouraged 10x per hour for at least 4 hrs a day
- DVT ppx: LMWH
Code status: Full code
Patient is stable for downgrade out of ICU to telemetry. No additional recommendations at this time. Pizza Maker/Pulmonary service will now sign off. Thank you for allowing us to be involved in the care of this patient. Please reconsult if there
are any additional questions/concerns, or if patient's respiratory status deteriorates.
Data:
CT abdomen/pelvis with IV contrast 03/20/2025:
Mild perinephric fat stranding about both kidneys, left greater than right, nonspecific. Findings could be secondary to an ascending urinary tract infection in the appropriate clinical setting, but no appreciable striated renal hypoenhancement to
confirm pyelonephritis by CT.
Fluid attenuation in the colon suggesting a diarrheal illness.
Total time spent today was 58 minutes for this encounter. Time includes reviewing laboratory test/imaging results, reviewing pertinent medical records, obtaining and reviewing medical history, performing an appropriate exam, ordering medications,
tests and procedures. Time also includes documentation of this encounter, coordinating patient care and communicating with other healthcare professionals. Total time does not include separately billed tests performed on this date of service.
Subjective Dataa
Subjective Data
Date of Service:
Date of Service: March 21, 2025
Chief Complaint: Pizza Maker Follow Up
Subjective:
Pt seen and evaluated this AM. Has remained off levophed since yesterday afternoon. Afebrile overnight. She feels much better today overall. Heart rate 60, BP 134/59 and saturating 98% on room air. She denies back pain, [place], nausea, fevers or
chills
Review of Systems
General: Other (Negative unless mentioned above)
Objective Data
Data Reviewed
Vital Signs / I&O / Oxygen:
Vital Signs
Temp Pulse Resp BP Pulse Ox
98.8 F 63 17 122/107 95
03/21/25 07:41 03/21/25 09:00 03/21/25 09:00 03/21/25 09:00 03/21/25 08:00
Intake and Output
03/20/25 03/21/25 03/22/25
06:59 06:59 06:59
Intake Total 2544.3 / 2937.3 106 / 1063
Output Total 455 / 455
Balance 2089.3 / 2482.3 1063 / 1063
SaO2 95
Nasal Cannula flow liters per 2
minute
Physical Exam
General: Respiratory Distress (negative), Comfortable, Chills (negative) and Sweats (negative)
HEENT: Normocephalic and Anicteric
Cardiovascular: S1-S2, Murmur (LYN heard at RUSB) and Peripheral Edema (Trace lower extremity pitting edema bilaterally)
Respiratory: Clear, Wheeze (negative), Crackles (negative), Rhonchi (negative) and Non-Labored Respirations
GI: Soft, Non Distended, Non Tender and Normal Bowel Sounds
Neurology: AO x 3 and Tremors (negative)
Skin: Warm, Dry, Cyanosis (negative) and Jaundice (negative)
Labs/Micro/Reports
Lab Data
03/21/25 03:43
03/21/25 03:43
Laboratory Results
03/20/25
15:37
PT 15.1 H
INR 1.16
APTT 28.2
Microbiology
03/20/25 09:45 Blood/Venous Blood Culture - Preliminary
No Growth in 24 hours- Final report to follow
--- NOTE | 2025-03-21 08:00 | PTCARENOTE ---
recd pt assessed, family bedside. VS remain stable. skin pink, notes much improved from yesterday. ordered and awaiting breakfast. agreeable to get OOB shortly.
[2025-03-21 08:45] LABS: Glucose - Point of Care 157 mg/dl (70-99)
[2025-03-21] MEDS: NOVOLOG FLEXPEN-LOW RESISTANCE 1 UNITS SC ×2 (08:56→13:02)
[2025-03-21] MEDS: TOPROL XL 25 MG PO (10:16)
[2025-03-21] MEDS: NSS IV (10:25)
--- NOTE | 2025-03-21 10:26 | PTCARENOTE ---
awaiting tele bed, VS noted, aware of plans for the day. remains OOB in recliner chair. c/o mild GI 'grumbling', states takes probiotic daily and requesting same in hospital if possible. call chew in reach.
--- NOTE | 2025-03-21 10:38 | PHA.VAN.FU ---
Vancomycin Assessment / Plan
- Assessment
Renal Function: Stable
WBC's are: Trending Down
In the past 24 hrs, patient has been: Afebrile
- Dosing Plan
Continue: vanc 1500mg q24h
- Monitoring Plan
No level(s) ordered at this time: consider in the upcoming days
- Follow Up
Pharmacy will continue to follow.
Vancomycin Follow UP
- -
Patient Age: 69
Patient Sex: Female
Vancomycin Day #: 2
Indication: Genito-Urinary Tract
Requesting Provider: Dr. Claudio
Pertinent Antimicrobial Allergies:
nkda
Height / Weight:
Height 5 ft 5 in
Actual Weight 81 kg
IBW in k
- Vital Signs / Lab Results
Temp Pulse Resp BP Pulse Ox
98.8 F 67 25 134/59 95
03/21/25 07:41 03/21/25 10:16 03/21/25 10:00 03/21/25 10:16 03/21/25 08:00
Lab Results - Hematology
03/20/25 03/21/25
09:45 03:43
WBC 15.4 H 11.1 H
Lab Results - Chemistry
03/20/25 03/21/25
09:45 03:43
BUN 18 H 16
Creatinine 0.9 0.8
Estimated Creat Clear 60 68
Albumin 3.9 3.0 L
03/20/25 03/20/25
09:45 13:23
Lactic Acid 2.5 H 1.8
Lab Results - Urine
03/20/25
15:09
Urine Nitrite (Reflex) Negative
Leukocyte Esterase Rfl 2+ A
Ur Squamous Epith Cells 11-15
Microbiology Results
03/20/25 09:45 Blood Culture - Preliminary
Blood/Venous No Growth in 24 hours- Final report to follow
[2025-03-21] MEDS: VISBIOME 1 CAP PO (11:10)
--- NOTE | 2025-03-21 11:47 | PTOTSP ---
Chart reviewed, spoke with patient and spouse. [facility] had [facility] [place] [facility] denies difficulty with ambulation and has a walker at home to use if needed. Patient denies concerns with her ability to do stairs. No
PT needs at this time, will sign off.
[2025-03-21 12:23] LABS: Glucose - Point of Care 155 mg/dl (70-99)
[2025-03-21 13:16] LABS: Glycohemoglobin (HgbA1c) 6.1 % (4.0-5.6)
[2025-03-21] MEDS: ROCEPHIN 1000 MG IV (13:59)
[2025-03-21] MEDS: STERILE WATER FOR INJECTION 10 ML IV (13:59)
--- NOTE | 2025-03-21 15:04 | PTCARENOTE ---
pt with occas abd grumbling, did move bowels brown loose not liquid small/mod amount stool in toilet. requesting immodium. Dr. Claudio notified, received orders for norovirus and c diff. placed on enhanced isolation precautions pending collection of
stool sample. pt aware, had received transfer bed destination; nursing coord notified of need for private room r/t MD orders.
--- NOTE | 2025-03-21 16:07 | PTCARENOTE ---
oob to bathroom for small amount liquid stool, pt uncertain if mixed with urine, specimen to lab.
[2025-03-21 16:54] LABS: Glucose - Point of Care 132 mg/dl (70-99)
[2025-03-21] MEDS: NOVOLOG FLEXPEN-LOW RESISTANCE SC (17:00)
[2025-03-21] MEDS: LOVENOX 40 MG SC (17:25)
[2025-03-21] MEDS: NOVOLOG FLEXPEN 2 UNITS SC (22:51)
[2025-03-22] VITALS (18 sets, daily range): BP systolic 132–194; BP diastolic 41–71; BMI 29.8
[2025-03-22 04:25] LABS: Hematocrit 26.6 % (37.0-47.0); Mean Corp Hgb Conc. 33.8 g/dL (33.0-37.0); Mean Corpuscular Hgb 34.1 pg (27.0-31.0); Mean Corpuscular Volume 100.8 fL (81.0-99.0); Mean Platelet Volume 12.1 fL (7.4-10.4); Platelet Count 171 10^3/uL (130-400); Red Blood Cell Count 2.64 10^6/uL (4.20-5.40); Red Cell Dist. Width 13.3 % (11.5-14.5); White Blood Cell Count 9.5 10^3/uL (4.8-10.8)
[2025-03-22 04:53] LABS: Blood Urea Nitrogen 12 mg/dl (7-17); Calcium 8.4 mg/dl (8.4-10.2); Carbon Dioxide 23 mmol/L (22-30); Chloride 116 mmol/L (98-107); Estimated Creatinine Clearance 78 ml/min; Glucose 141 mg/dl (70-99); Magnesium 2.1 mg/dl (1.6-2.3); Phosphorus 2.6 mg/dl (2.5-4.5); Potassium 3.6 mmol/L (3.5-5.1); Sodium 144 mmol/L (135-145); eGFR > 60.00
[2025-03-22] MEDS: SYNTHROID 75 MCG PO (05:37)
--- NOTE | 2025-03-22 07:15 | PTCARENOTE ---
Received patient from admin secretary. patient is AAOx4. pleasant, cooperative, ambulating independently. She is on room air, sinus rhythm/ sinus hardy on monitor. patient is ordered regular diet and has bathroom privileges. Tele status patient.
will review orders, call chew within reach.
[2025-03-22] MEDS: VISBIOME 1 CAP PO (07:37)
[2025-03-22] MEDS: LASIX 20 MG PO (07:37)
[2025-03-22] MEDS: TOPROL XL PO (07:37)
[2025-03-22] MEDS: THERAGRAN 1 TABLET PO (07:38)
[2025-03-22] MEDS: NICODERM TRANSDERMAL 14 MG TRANSDERM (07:38)
[2025-03-22] MEDS: SOLU-CORTEF 50 MG IV ×2 (07:38→15:44)
[2025-03-22] MEDS: NOVOLOG FLEXPEN-LOW RESISTANCE SC (07:53)
[2025-03-22] MEDS: TOPROL XL 25 MG PO (08:01)
[2025-03-22 08:02] LABS: Glucose - Point of Care 117 mg/dl (70-99)
--- NOTE | 2025-03-22 09:07 | CON.CAR ---
Addendum entered and electronically signed by Orlando Diego MD 03/22/25 12:00:
75 yo female with PMH of severe , moderate AR; undergoing TAVR eval; is admitted with septic shock in the setting of UTI/pyelonephritis. This has improved. We are consulted for an episode of chest pain this AM. She experienced chest pain after
eating breakfast, which self resolved after a few minutes. Now chest pain free. Exam with RRR, III/ systolic murmur at RUSB, trace edema. Tele: SR 70s. TnI <0.034. EKG: NSR, RBBB.
Chest pain. Does not seem to be ACS at this time. Will trend trop.
BP mgmt. Add lisinopril.
Original Note:
Consultation
Consultation Request
Date/Time Consultation Requested: 03/22/25839
Date/Time Consultation Performed: 03/22/25921
Requesting Provider: Dr. Guevara
Performing Provider: Katiana CRAVEN for Dr. Diego
Reason for Consultation: chest discomfort
Medical History
-
Chief Complaint: chest pain
History of Present Illness:
69 y/o with (Dr. Bacon) severe aortic stenosis, moderate aortic regurgitation, RBBB, tobacco use (quit 3 weeks ago), DM, adrenal insufficiency, hypothyroidism, recurrent UTI's, colovesical fistula, perirectal abscesses who is here for septic
shock in the setting of UTI/pyelonephritis. Briefly, she developed dysuria and was placed on Macrobid as OP. She took one dose, but then developed fever/chills/N/V and came in and got fluids and antibiotics and required pressors. We are consulted
since this AM after breakfast, she developed chest discomfort (midsternal pressure). It lasted several minutes. It has been on and off ever since. She looks well. EKG and trop were fine. Of note, she is in the midst of w/u for her severe and
original plan was for L and R heart cath. She is in no distress at the time of my assessment. at bedside.
Past Medical History
Past Medical History: HTN, Hypercholesterolemia, NIDDM and Valvular Disease
Social History
Tobacco: Former Smoker (quit 3 weeks ago)
Personal:
Family History
Family History: Reviewed & Not Pertinent
Allergies / Home Medications
Allergy/AdvReac Type Severity Reaction Status Date / Time
No Known Allergies Allergy Verified 12/07/24 15:26
�Medication �Instructions �Recorded �Confirmed �Type
multivitamin (One Daily Essential 1 ea PO DAILY Supplement 01/24/19 03/20/25 History
tablet)
metoprolol succinate 25 mg 25 mg PO DAILY Blood pressure 05/26/22 03/20/25 History
tablet,extended release 24 hr
furosemide 20 mg tablet 20 mg PO DAILY Fluid 03/04/23 03/20/25 History
retention/Swelling
hydrocortisone 10 mg tablet 20 mg PO DAILY Anti-inflammatory 03/04/23 03/20/25 History
rosuvastatin 5 mg tablet (Crestor) 5 mg PO QPM High Cholesterol 09/12/24 03/20/25 History
levothyroxine 75 mcg tablet 75 mcg PO DAILY Thyroid 09/17/24 03/20/25 History
(Synthroid)
nicotine 14 mg/24 hr daily 14 mg transdermal DAILY Smoking 12/08/24 03/20/25 History
transdermal patch Cessation
Probiotic 1 PO DAILY Supplement 03/21/25 History
Review of Systems
-
History Source: Patient and Other (and chart)
All other systems: Negative unless noted
Constitutional: Fever and Chills
Cardiac: Chest Pain
Abdomen/GI: Nausea and Vomiting
: Dysuria
Physical Exam
Vital Signs
Temp Pulse Resp BP Pulse Ox
98.2 F 67 16 177/66 100
03/22/25 07:35 03/22/25 08:01 03/21/25 15:06 03/22/25 08:01 03/21/25 23:11
Lab Results
03/22/25 04:10
03/22/25 04:10
Physical Exam
General: Well Developed, Well Nourished and No Apparent Distress
HEENT: Normocephalic and Anicteric
Respiratory: Clear and Non Labored Respirations
Cardiac: Regular Rhythm and Murmur (III/ systolic)
Musculoskeletal: Edema (mild BLE edema)
Skin: Warm and Dry
Neuro: AO x 3
Psych: Calm
Impression / Plan
-
Septic shock in setting of UTI/pyelonephritis:
-this diagnosis is threat to life. Fortunately, she has improved with fluids, ABX. She is off pressors.
-continue management per primary team
Chest discomfort:
-known severe , with plan for OP R and L heart cath as part of w/u soon
-EKG and trop unremarkable. Will check another troponin.
-could be GERD (happened right after eating, on steroids chronically, PPI stopped)- will add back PPI
-patient was on ASA in prep for cath, but only took it once 81 mg. I will give 325 now and then 81 mg daily as we w/u chest discomfort.
Tobacco abuse:
-she quit 3 weeks ago, which I congratulated her on. Remain smoke free.
RBBB:
-chronic, stable
Severe , moderate AR:
-she is in the midst of OP w/u for valve replacement
-on lasix
HTN:
-elevated
-add ACEI and monitor
Data Reviewed
-
EKG: Tracing Personally Visualized and interpreted (NSR RBBB)
Radiology: Report Reviewed by me (CXR: Mild pulmonary vascular congestion.)
Medical Tests (Nuc Med, Echo etc): Report Reviewed by me (03/09/25: Normal biventricular size and systolic function without regional wall motion abnormality. Stage II diastolic dysfunction. Severe aortic stenosis. Moderate aortic regurgitation.)
Labs: Labs Reviewed by me
--- NOTE | 2025-03-22 09:10 | PTCARENOTE ---
Patient complained of chest pain. it was radiating through her back. PCT helped patient back into bed. obtained EKG and troponin, Dr. Landrum and Dr. Hunter notified. no ST elevation, Cardiology consult made.
[2025-03-22 09:18] LABS: Troponin I 0.034 ng/ml
[2025-03-22 09:23] LABS: INR 1.07; PT 14.2 Sec (11.4-14.6)
[2025-03-22 09:24] LABS: APTT 33.9 Sec (23.4-35.0)
--- NOTE | 2025-03-22 11:23 | CM ---
Initial assessment completed with patient and who live in a 2 story home with B/B on 2nd and 2 steps to enter. Support system is and 2 sons, one lives in the area. PATCHER patient was independent in ADL's and drove. There is a RW and
SPC in the home but not used. No in-home services. No service. [facility]acy [facility] in [place] and PCP is Dr. Kavitha Escalera in . Anticipate no needs at discharge.
[2025-03-22] MEDS: ASPIRIN 325 MG PO (11:39)
[2025-03-22] MEDS: PROTONIX 40 MG PO (11:40)
[2025-03-22] MEDS: ZESTRIL 5 MG PO (11:40)
[2025-03-22 11:55] LABS: Glucose - Point of Care 159 mg/dl (70-99)
[2025-03-22] MEDS: NOVOLOG FLEXPEN-LOW RESISTANCE 1 UNITS SC ×2 (12:09→17:23)
--- NOTE | 2025-03-22 12:33 | PTCARENOTE ---
Patient seen by Dr. Diego. Initiating Lisinopril for BP. Patient chest pain has resolved. Patient has negative troponin, will recheck at 1400. at bedside, updated on plan of care.
[2025-03-22] MEDS: STERILE WATER FOR INJECTION 10 ML IV (14:03)
[2025-03-22] MEDS: ROCEPHIN 1000 MG IV (14:03)
[2025-03-22 15:20] LABS: Troponin I 0.031 ng/ml
--- NOTE | 2025-03-22 15:41 | W.PN.HOSP.TC ---
Today's Communication/Plan
-
Assessment / Plan
Assessment / Plan
Physical Exam
General: No pallor, cyanosis, or jaundice.
HEENT: Throat clear. PERRLA Normocephalic atraumatic
NECK: Supple. No JVD Carotid Bruits
RESPIRATORY: Lungs clear to auscultation. No crackles wheezes stridor
CVS: S1, S2 normal. RRR. Systolic murmur 3/6
ABDOMEN: Soft, non-tender. No distension. BS+/normal. Left CVA tenderness
EXTREMITIES: No peripheral cyanosis or edema.
INSTRUCTIONAL DESIGN TECHNOLOGIST: AOx3 conversant coherent
IMPRESSION:
69F Nicotine dependence HTN, HLD, central hypothyroidism, adrenal insufficiency, Severe AR undergoing outpt workup with cardio here dysuria started day prior to presentation. Patient was prescribed macrobid by pcp. She had only taken one dose.
Developed fever chills nausea vomiting next morning prompting ED visit. Initial evaluation concerning for sepsis Fever tachycardia leukocytosis lactic acid 2.5. Physical exam was also notable for Lt CVA tenderness. Stable respiratory status on
room air. Fever 102.9 improved with 1000 mg once Tylenol. Empiric abx ceftriaxone was started. Patient received 1L fluid bolus, blood pressure however proceeded to drop systolic 70s, patient progressively lethargic though remain conversant
coherent. 2nd 1L bolus and stress dose steroids ordered. Admitted to ICU for septic shock 2/2 UTI/Lt Pyelonephritis.
PLAN:
#Septic Shock 2/2 complicated UTI
#left pyelonephritis
#History adrenal insufficiency
#Lactic acidosis resolved
- CT abd/pelvis w/ IV contrast appreciated signs of ascending urinary tract infection, no stones noted
-Initially admitted to the ICU, briefly required levophed since weaned off, significant clinical improvement, stable for downgrade to [facility] day 2
- Received ceftriaxone, broaden to empiric Vanco and Zosyn, now back to ceftriaxone alone
- Cultures negative
- On Stress dose steroids IV solu-cortef 50 mg q6h, tapered to q8H, now tapering to every 12
- Continue sliding scale while on high dose steroids (patient not diabetic)
#Chest pain
- No evidence of ACS, troponins within normal limits x 2 and EKG unremarkable
- Blood pressure uncontrolled, added low-dose lisinopril
- Cardiology following
#Severe AR
- respiratory status remains stable on room air
- No significant signs of heart failure at this time
- Due for outpt Cardiac cath Saturday03/26/25 with [facility] cardiology (tommy texted group and notified that she is here. Anticipate that she will recover in time to follow up outpt for procedure).
- Cardiology following while inpatient
#Hypothyroidism
Continue Synthroid
#Hypertension
#Hyperlipidemia
- Initially home Toprol held antihypertensives at the time due to concern shock, since resumed with holding parameters
- Added low-dose lisinopril
#Nicotine dependence
Continue nicotine patch
dvt ppx Lovenox
gi ppx Protonix
Full code
Medically stable for downgrade to Tele
Discussed with patient.
I spent a total of 45 minutes with the patient or on the floor. More than 50% of this time involved counseling and coordination of care.
Anticipated Discharge: 24 - 48 hours
Subjective/Interval History
-
Date of Service: March 22, 2025
Patient was seen and examined at bedside this morning. She had an episode of acute chest discomfort which is since resolved. Her troponins have been within normal limits x 2 and her EKG was unremarkable. Her chest discomfort is likely due to
uncontrolled hypertension which has since improved with initiation of lisinopril.
Objective Data
-
Labs:
Laboratory Results
03/22/25 03/22/25
04:10 08:44
WBC 9.5
Hgb 9.0 L
Hct 26.6 L
Plt Count 171
PT 14.2
INR 1.07
APTT 33.9
Sodium 144
Potassium 3.6
Chloride 116 H
Carbon Dioxide 23
BUN 12
Creatinine 0.7
Glucose 141 H
Calcium 8.4
Vital Signs:
Vital Signs
Temp Pulse Resp BP Pulse Ox
98.5 F 52 20 157/52 99
03/22/25 15:33 03/22/25 13:02 03/22/25 11:00 03/22/25 13:02 03/22/25 11:00
I&O
03/21/25 03/22/25 03/23/25
06:59 06:59 06:59
Intake Total 2544.3 / 2937.3 2623 / 2623 240 / 240
Output Total 455 / 455
Balance 2089.3 / 2482.3 2623 / 2623 240 / 240
Review of Systems
-
History Source: Patient
All other systems: Reviewed and negative
Cardiac: Reports Chest Pain
Physical Exam
-
General: No Apparent Distress
[2025-03-22 17:21] LABS: Glucose - Point of Care 196 mg/dl (70-99)
[2025-03-22] MEDS: LOVENOX 40 MG SC (17:22)
[2025-03-22 21:41] LABS: Glucose - Point of Care 292 mg/dl (70-99)
[2025-03-23 04:00] VITALS: BP 180/62
[2025-03-23 06:00] VITALS: BMI 30.2
[2025-03-23] MEDS: SYNTHROID 75 MCG PO (06:28)
[2025-03-23 07:05] VITALS: BP 198/56
[2025-03-23 07:17] LABS: Hematocrit 29.1 % (37.0-47.0); Mean Corp Hgb Conc. 34.4 g/dL (33.0-37.0); Mean Corpuscular Hgb 34.4 pg (27.0-31.0); Platelet Count 210 10^3/uL (130-400); Red Blood Cell Count 2.91 10^6/uL (4.20-5.40); Red Cell Dist. Width 13.4 % (11.5-14.5); White Blood Cell Count 10.6 10^3/uL (4.8-10.8)
[2025-03-23 07:46] LABS: Blood Urea Nitrogen 10 mg/dl (7-17); Calcium 8.8 mg/dl (8.4-10.2); Carbon Dioxide 27 mmol/L (22-30); Chloride 115 mmol/L (98-107); Estimated Creatinine Clearance 68 ml/min; Glucose 75 mg/dl (70-99); Magnesium 1.9 mg/dl (1.6-2.3); Phosphorus 2.6 mg/dl (2.5-4.5); Potassium 3.5 mmol/L (3.5-5.1); Sodium 147 mmol/L (135-145); eGFR > 60.00
[2025-03-23 08:14] LABS: Glucose - Point of Care 91 mg/dl (70-99)
[2025-03-23] MEDS: NOVOLOG FLEXPEN-LOW RESISTANCE SC ×2 (08:16→11:42)
[2025-03-23] MEDS: PROTONIX 40 MG PO (08:19)
[2025-03-23] MEDS: NICODERM TRANSDERMAL 14 MG TRANSDERM (08:20)
[2025-03-23] MEDS: TOPROL XL 25 MG PO (08:20)
[2025-03-23] MEDS: VISBIOME 1 CAP PO (08:20)
[2025-03-23] MEDS: LASIX 20 MG PO (08:20)
[2025-03-23] MEDS: THERAGRAN 1 TABLET PO (08:20)
[2025-03-23] MEDS: LOW STRENGTH ASPIRIN 81 MG PO (08:20)
[2025-03-23] MEDS: SOLU-CORTEF 50 MG IV (08:21)
[2025-03-23] MEDS: ZESTRIL 5 MG PO ×2 (08:21→10:39)
[2025-03-23 10:19] VITALS: BP 166/58
--- NOTE | 2025-03-23 10:19 | W.PN.CD ---
Addendum entered and electronically signed by Orlando Diego MD 03/23/25 17:47:
75 yo female with PMH of severe , moderate AR; undergoing TAVR eval; is admitted with septic shock in the setting of UTI/pyelonephritis. This has improved. We are consulted for chest pain and BP mgmt. Now chest pain free. Exam with RRR, III/
systolic murmur at RUSB, trace edema. Tele: SR 80s. TnI within normal limits. EKG: NSR, RBBB.
Chest pain may be GI in etiology. Occurs after breakfast. No evidence of ACS. She will be discharged today, and will return Saturday for cath for TAVR evaluation.
BP is better. Continue coreg 12.5mg bid, and lisinopril 10mg daily.
Original Note:
Today's Communication / Plan
-
Stop metoprolol and start carvedilol
Increase lisinopril
Another episode of chest pain this morning after coffee
Impression / Plan
-
I/P: 69F with severe aortic stenosis, moderate aortic regurgitation, RBBB, tobacco use (quit 3 weeks ago), DM, adrenal insufficiency, hypothyroidism, recurrent UTI's, colovesical fistula, perirectal abscesses who is here for septic shock in the
setting of UTI/pyelonephritis
Primary home appraiser: Dr. Bacon
Septic shock in setting of UTI/pyelonephritis:
- This diagnosis is threat to life, fortunately, she has improved with fluids & antibiotics
- No longer requiring vasopressor support, Solu-Cortef per primary
Chest discomfort:
- Known severe , scheduled for LHC/RHC 03/26/2025
- She had another episode of midsternal anterior chest discomfort this morning after having coffee that radiated into her back and shoulders
- Update EKG, troponin unremarkable
- Could be GERD (happened right after eating, on steroids chronically, PPI stopped), added back yesterday
Severe arctic stenosis with moderate aortic regurgitation
- Outpatient evaluation arranged for Saturday
- On furosemide
HTN:
- Above goal, transition metoprolol to carvedilol
- Increase lisinopril to 10 mg
RBBB, chronic, stable
Prior tobacco abuse, 3 weeks cessation, continue
Physical Exam
Vital Signs/Labs
Vital Signs
Temp Pulse Resp BP Pulse Ox
98.1 F 51 18 198/56 96
03/23/25 07:05 03/23/25 08:20 03/23/25 07:05 03/23/25 08:20 03/23/25 09:50
03/22/25 03/23/25 03/24/25
06:59 06:59 06:59
Actual Weight 81.2 kg 82.27 kg
03/23/25 07:00
03/23/25 07:00
PT 14.2 Sec (11.4-14.6) 03/22/25 08:44
INR 1.07 03/22/25 08:44
APTT 33.9 Sec (23.4-35.0) 03/22/25 08:44
Magnesium 1.9 mg/dl (1.6-2.3) 03/23/25 07:00
LAB Results
03/22/25 03/22/25
08:40 14:40
Troponin I 0.034 0.031
Physical Exam
Constitutional: No acute distress and Comfortable
EENT: Anicteric and Moist mucous membranes
Cardiovascular: Rhythm & rate is regular, Pedal edema is absent and Systolic murmur present
Respiratory: Respiratory effort normal and Lungs clear to auscul.
GI: Soft, Distention absent, Flat and Non tender
Neuro/Psych: AO x 3
Other: Skin (warm and dry)
Data Reviewed
-
Date of Service: March 23, 2025
--- NOTE | 2025-03-23 11:11 | CM ---
CM reviewed chart, patient seen bedside with . Patient plan remains home no needs. CM will continue to follow for all discharge planning needs.
Plan; home no needs
[2025-03-23 11:38] LABS: Glucose - Point of Care 132 mg/dl (70-99)
[2025-03-23] MEDS: STERILE WATER FOR INJECTION 10 ML IV (14:12)
[2025-03-23] MEDS: ROCEPHIN 1000 MG IV (14:12)
[2025-03-23 14:35] LABS: Glucose - Point of Care 193 mg/dl (70-99)
[2025-03-23 15:01] VITALS: BP 111/86
[2025-03-23 15:05] VITALS: BP 111/86
--- NOTE | 2025-03-23 16:31 | W.DCSUMMARY ---
Discharge Summary
Discharge Data
Date of Admission: 03/20/25
Date of Discharge: 03/23/25
Total time spent discharging patient (in min): 40
-
Pending Results: No
Hospital Course
Ms. Newman is a 69-year-old female with a medical history of adrenal insufficiency, central hypothyroidism, severe aortic stenosis with moderate aortic regurgitation (currently undergoing TAVR evaluation), nicotine dependence, and hypertension who
presented with dysuria that started one day prior to presentation. Patient was prescribed macrobid by pcp. She had only taken one dose before developing fever chills nausea vomiting the next morning which prompted ED visit. Initial evaluation
consistent with sepsis with fever tachycardia leukocytosis lactic acid 2.5. Physical exam was also notable for Lt CVA tenderness. Stable respiratory status on room air. Fever 102.9 improved with 1000 mg once Tylenol. Empiric abx were started
with vancomycin and Zosyn. Patient received 1L fluid bolus, blood pressure however proceeded to drop to systolic in the 70s. Patient became progressively lethargic though remained conversant and coherent. 2nd 1L bolus and stress dose steroids were
given. Patient was admitted to ICU for septic shock secondary to UTI/ Pyelonephritis.
She only briefly required Levophed, and was ultimately able to be weaned off of vasopressors and downgraded to telemetry on hospital day 2. All of her cultures and MRSA screen resulted negative. Antibiotics were transitioned to ceftriaxone. She
continued to clinically improve. However she became significantly hypertensive on the morning of 03/22. She also had some transient chest pain after eating breakfast that morning of 03/22. Her troponins were within normal limits and her EKG was
unremarkable. She had similar chest discomfort again after breakfast the following morning on 03/23. Her blood pressure was also uncontrolled at that time. She was still on high-dose steroids at that point which were titrated back down to her
daily dose of hydrocortisone 20 mg daily. Low-dose lisinopril was also added with improvement in her blood pressure. She was evaluated by cardiology who also changed her beta-keanu from metoprolol succinate to carvedilol. Her blood pressure was
adequately controlled with these medication changes. Pantoprazole was added for acid suppression, considering her chest discomfort may have been related to acid reflux. She will need to follow-up with a laborer heading in the outpatient setting
for further evaluation.
At time of hospital discharge she was medically stable. She will be continued on 7 more days of oral antibiotics with Augmentin for treatment of her urinary tract infection with pyelonephritis.. She will need to monitor her blood pressure closely
with her PCP or acid treater, as further medication adjustments may be needed. She will need close follow-up with her acid treater for ongoing TAVR workup. She will need to follow-up with her primary care physician and with a laborer heading.
Physical Exam
General: No pallor, cyanosis, or jaundice.
HEENT: Throat clear. PERRLA Normocephalic atraumatic
NECK: Supple. No JVD Carotid Bruits
RESPIRATORY: Lungs clear to auscultation. No crackles wheezes stridor
CVS: S1, S2 normal. RRR. Systolic murmur 3/6
ABDOMEN: Soft, non-tender. No distension. BS+/normal.
EXTREMITIES: No peripheral cyanosis or edema.
GAS ENGINE OPERATOR GENERATORS: AOx3 conversant coherent
Discharge Plan
-
Patient Disposition: Home (Routine Discharge)
Discharge Diagnosis/Procedures: Septic shock secondary to pyelonephritis, hypertensive urgency
Diet: Regular
Activity: As tolerated
Activity Restrictions/Additional Instructions:
Ms. Newman is a 69-year-old female with a medical history of adrenal insufficiency, central hypothyroidism, severe aortic stenosis with moderate aortic regurgitation (currently undergoing TAVR evaluation), nicotine dependence, and hypertension who
presented with dysuria that started one day prior to presentation. Patient was prescribed macrobid by pcp. She had only taken one dose before developing fever chills nausea vomiting the next morning which prompted ED visit. Initial evaluation
consistent with sepsis with fever tachycardia leukocytosis lactic acid 2.5. Physical exam was also notable for Lt CVA tenderness. Stable respiratory status on room air. Fever 102.9 improved with 1000 mg once Tylenol. Empiric abx were started
with vancomycin and Zosyn. Patient received 1L fluid bolus, blood pressure however proceeded to drop to systolic in the 70s. Patient became progressively lethargic though remained conversant and coherent. 2nd 1L bolus and stress dose steroids were
given. Patient was admitted to ICU for septic shock secondary to UTI/ Pyelonephritis.
She only briefly required Levophed, and was ultimately able to be weaned off of vasopressors and downgraded to telemetry on hospital day 2. All of her cultures and MRSA screen resulted negative. Antibiotics were transitioned to ceftriaxone. She
continued to clinically improve. However she became significantly hypertensive on the morning of 03/22. She also had some transient chest pain after eating breakfast that morning of 03/22. Her troponins were within normal limits and her EKG was
unremarkable. She had similar chest discomfort again after breakfast the following morning on 03/23. Her blood pressure was also uncontrolled at that time. She was still on high-dose steroids at that point which were titrated back down to her
daily dose of hydrocortisone 20 mg daily. Low-dose lisinopril was also added with improvement in her blood pressure. She was evaluated by cardiology who also changed her beta-keanu from metoprolol succinate to carvedilol. Her blood pressure was
adequately controlled with these medication changes. Pantoprazole was added for acid suppression, considering her chest discomfort may have been related to acid reflux. She will need to follow-up with a laborer heading in the outpatient setting
for further evaluation.
At time of hospital discharge she was medically stable. She will be continued on 7 more days of oral antibiotics with Augmentin for treatment of her urinary tract infection with pyelonephritis.. She will need to monitor her blood pressure closely
with her PCP or acid treater, as further medication adjustments may be needed. She will need close follow-up with her acid treater for ongoing TAVR workup. She will need to follow-up with her primary care physician and with a laborer heading.
Referrals:
Kavitha Escalera MD [Family Provider] -
Prescriptions:
New
carvedilol 12.5 mg Tablet
12.5 mg PO BID 30 Days Qty: 60 0RF
pantoprazole 40 mg Tablet,Delayed Release (Dr/Ec)
40 mg PO DAILY 30 Days Qty: 30 0RF
aspirin 81 mg Tablet,Chewable
81 mg PO DAILY 30 Days Qty: 30 0RF
lisinopril 5 mg tablet
5 mg PO DAILY 30 Days Qty: 30 0RF
amoxicillin-pot clavulanate [Augmentin] 500-125 mg tablet
1 tab PO BID 7 Days Qty: 14 0RF
Continued
multivitamin [One Daily Essential] 1 EACH tablet
1 ea PO DAILY
furosemide 20 mg Tablet
20 mg PO DAILY
hydrocortisone 10 mg Tablet
20 mg PO DAILY
rosuvastatin [Crestor] 5 mg Tablet
5 mg PO QPM
Patient Comments:
no pharamcy fills in 2023
levothyroxine [Synthroid] 75 mcg Tablet
75 mcg PO DAILY
nicotine 14 mg/24 hr patch 24 hour
14 mg transdermal DAILY
Probiotic
1 PO DAILY
Discontinued
metoprolol succinate 25 mg Tablet Extended Release 24 Hr
25 mg PO DAILY
Discharge Orders:
Discharge Patient (As Directed); Ordered 03/23/25
Ordered By: Carlos Guevara
Discharge Date and Time
Print Language: NEPALI
[2025-03-23 16:33] LABS: Glucose - Point of Care 203 mg/dl (70-99)
[2025-03-23] MEDS: NOVOLOG FLEXPEN-LOW RESISTANCE 2 UNITS SC (16:38)
== END 2025-03-23 18:25 | disposition home or self-care (01) | DRG 871 ==
LOC: 4 WEST ACU 12:35
PROVIDERS: ADMITTING PHYSICIAN Internal Medicine; ATTENDING PHYSICIAN Internal Medicine; CONSULT PHYSICIAN Internal Medicine; CONSULT PHYSICIAN Internal Medicine Critical Care Medicine; EMERGENCY PHYSICIAN Student in an Organized Health Care Education/Training Program; FAMILY PHYSICIAN Family Medicine
DX: A41.9 Sepsis, unspecified organism (principal); R65.21 Severe sepsis with septic shock; N10 Acute pyelonephritis; E27.40 Unspecified adrenocortical insufficiency; E87.20 Acidosis, unspecified; I16.0 Hypertensive urgency; R07.89 Other chest pain; I35.2 Nonrheumatic aortic (valve) stenosis with insufficiency; I45.10 Unspecified right bundle-branch block; E03.9 Hypothyroidism, unspecified; E11.9 Type 2 diabetes mellitus without complications; F17.200 Nicotine dependence, unspecified, uncomplicated; Z79.01 Long term (current) use of anticoagulants; Z79.899 Other long term (current) drug therapy; Z86.718 Personal history of other venous thrombosis and embolism; E78.00 Pure hypercholesterolemia, unspecified; Z87.440 Personal history of urinary (tract) infections
CPT/HCPCS: 71045; 71275; 74177; 80048; 80053; 81003; 81015; 82533; 82962; 83036; 83605; 83735; 84100; 84484; 85025; 85027; 85610; 85730; 87040; 87086; 87324; 87449; 87641; 87798; 93005; 96365; 96366; 96375; 99285; Q9967

== ENCOUNTER 2025-03-26 06:49 | Day surgery (SDC) | payer MEDICARE, SELFPAY ==
[2025-03-18 09:04] VITALS: BMI 29.5
[2025-03-18 09:40] LABS: Hematocrit 33.2 % (37.0-47.0); Hemoglobin 11.4 g/dL (12.0-16.0); Mean Corp Hgb Conc. 34.3 g/dL (33.0-37.0); Mean Corpuscular Hgb 34.4 pg (27.0-31.0); Mean Corpuscular Volume 100.3 fL (81.0-99.0); Mean Platelet Volume 11.6 fL (7.4-10.4); Platelet Count 230 10^3/uL (130-400); Red Blood Cell Count 3.31 10^6/uL (4.20-5.40); Red Cell Dist. Width 13.2 % (11.5-14.5); White Blood Cell Count 10.8 10^3/uL (4.8-10.8)
[2025-03-18 09:55] LABS: ALT (SGPT) 23 U/L (0-35); AST (SGOT) 20 U/L (14-36); Albumin 3.8 g/dl (3.5-5.0); Alkaline Phosphatase 51 U/L (38-126); Blood Urea Nitrogen 19 mg/dl (7-17); Calcium 9.5 mg/dl (8.4-10.2); Carbon Dioxide 31 mmol/L (22-30); Chloride 108 mmol/L (98-107); Estimated Creatinine Clearance 68 ml/min; Glucose 98 mg/dl (70-99); Potassium 4.1 mmol/L (3.5-5.1); Sodium 144 mmol/L (135-145); Total Bilirubin 0.6 mg/dl (0.2-1.3); Total Protein 6.9 g/dl (6.3-8.2); eGFR > 60.00
[2025-03-18 10:23] LABS: % Basophils 1.4 % (0-2); % Eosinophils 4.6 % (0-6); % Immature Granulocytes 0.2 % (0-0.5); % Neutrophils 33.8 % (42.2-75.2); Absolute Basophils 0.2 10^3/uL (0-0.2); Absolute Eosinophils 0.5 10^3/uL (0-0.7); Absolute Lymphocytes 5.7 10^3/uL (1.2-3.4); Absolute Monocytes 0.8 10^3/uL (0.1-0.6); Absolute Neutrophils 3.6 10^3/uL (1.4-6.5); Nucleated Red Blood Cells % 0 %
[2025-03-26] VITALS (9 sets, daily range): BP systolic 149–160; BP diastolic 47–137
--- NOTE | 2025-03-26 09:02 | ITS.CL.PN ---
Motion Graphics Artist - Procedure Note
Procedure
Procedure Note:
CARDIAC CATHETERIZATION REPORT
Date of Procedure: 03/26/2025
Referring: Dr. Juan Bacon MD
Indication: severe aortic stenosis
PROCEDURE(S)
1. right heart catheterization
2. left heart catheterization
3. coronary angiography
ACCESS
1. 6F right radial artery (closure: radial band)
2. 5F right antecubital vein (closure: manual hemostasis)
CATHETERS
1. 5F [place]
2. 6F JR4
3. 6F JL3.5
4. 5F Dennis
MODERATE SEDATION: 30 minutes of moderate sedation was utilized. An independent medical doctor md was present to assist with and help manage the patient's level of consciousness and physiologic status.
HEMODYNAMIC DATA
LV 192/15 (EDP 29) mmHg
AO 163/57 (mean 90) mmHg
RA 11 mmHg
RV 41/4 (EDP 14) mmHg
PA 44/13 (mean 30) mmHg
PCWP 20 mmHg
SaO2 92.8%
SvO2 66.1%
Hb 9.8 g/dL
CO/CI 6.59/3.51 L/min/m2
SVR 958 dsc*-5
PVR 1.5 Wood units
Mean gradient 44.87 mmHg at heart rate of 65 bpm giving stroke-volume index of 54 mL/m2 and valve area of 0.97 cm2
CORONARY ANGIOGRAPHY
Dominance: right
LM: large vessel with minimal disease
LAD: large vessel giving rise to a small diagonal branch. There is a focal 30-40% stenosis in the proximal vessel and otherwise mild diffuse disease.
LCx: moderate caliber vessel giving rise to moderate caliber branching OM1 and small LPL branch. There is a focal 30% stenosis in the proximal aspect of the OM1 and otherwise diffuse mild disease.
RCA: Large-caliber vessel giving rise to a small RPDA and 2 small RPL branches. There is a long segment 30 to 40% stenosis from the proximal to mid RCA.
RADIATION: dose 139 mGy; DAP 14 Gy*cm2; fluoroscopy time 4.4 min
CONCLUSIONS
1. Nonobstructive coronary artery disease in right dominant system as described
2. Mildly elevated LV filling pressure, mild postcapillary pulmonary hypertension, and normal cardiac output
3. Severe normal flow aortic stenosis
RECOMMENDATIONS
1. Proceed with workup for TAVR/SAVR
2. Aggressive secondary prevention of coronary artery disease
Copy to: Dr. Juan Bacon MD (bellstand attendant); Dr. Kavitha Escalera MD (PCP)
Signed: Ronen Moore MD, PhD
[2025-03-26] MEDS: NSS 1000 IV (09:43)
[2025-03-26] MEDS: NSS 241 ML IV (09:46)
--- NOTE | 2025-03-26 10:02 | CONSULT.STRU ---
Consultation
-
Date/Time Consultation Requested: 03/28/2025
Date/Time Consultation Performed: 03/28/2025
Requesting Provider: Ronen Moore MD
Performing Provider: MERISSA Eastman
Reason for Consultation: / TAVR/SAVR
Patient History
Physicians
Family Physician: Kavitha Escalera MD
Outpatient Firearms Expert: Juan Bacon MD
Primary Firearms Expert: Juan Bacon MD
History of Present Illness
Ms. Newman is a very pleasant 69 yof with a past medical history significant for , T2 DM, HLD, HTN, tobacco abuse (quit 03/05/25), hypothyroidism, multinodular goiter, hyponatremia, UTIs, and sepsis. Her most recent echocardiogram is notable for EF
65-70%, AV P/M 77/42, PRADEEP 0.7, 4.4, moderate AI, MAC, mild MR, Trace TR, PAP 22. Her cardiac catheterization from 03/05/2025 demonstrates non-ostructive CAD. From a symptomatiology standpoint, patient describes a decrease in exercise tolerance. She
denies SOB,ESTRADA, CP, Dizziness, or lightheadedness. Discussed the pathophysiology and treatment options of aortic stenosis including SAVR and TAVR. Explained the evaluation process comprising of CT scan, CT surgical consult, and a heart team
discussion. Patient is edentulous and will not need dental clearance. TAVR booklet, prescriptions, appointments, and contact information given to patient and spouse. Allowed for and answered questions to the best of my ability.
Past Medical History
Past Medical History: HTN, Hypothyroidism, NIDDM, Valvular Disease (Aortic stenosis) and Other (HLD, RBBB, Former smoker, diverticulosis)
Past Surgical History
Past Surgical History: Other (excision of pilonidal cyst, sigmoidectomy and takedown of vesico-colonic fistula)
Dental History
edentulous
Family History
Mother: at Age (50) and Cause of (diabetes and ca)
Father: at Age (60) and Cause of (cancer)
Social History
Alcohol: None
Drug: None
Tobacco: Former Smoker (quit 03/05/25)
Personal:
Living: With Spouse
Allergies
Allergy/AdvReac Type Severity Reaction Status Date / Time
No Known Allergies Allergy Verified 03/26/25 07:10
Home Medications
�Medication �Instructions �Recorded �Confirmed �Type
multivitamin (One Daily Essential 1 ea PO DAILY Supplement 01/24/19 03/26/25 History
tablet)
furosemide 20 mg tablet 20 mg PO DAILY Fluid 03/04/23 03/26/25 History
retention/Swelling
hydrocortisone 10 mg tablet 20 mg PO DAILY Anti-inflammatory 03/04/23 03/26/25 History
rosuvastatin 5 mg tablet (Crestor) 5 mg PO QPM High Cholesterol 09/12/24 03/26/25 History
levothyroxine 75 mcg tablet 75 mcg PO DAILY Thyroid 09/17/24 03/26/25 History
(Synthroid)
nicotine 14 mg/24 hr daily 14 mg transdermal DAILY Smoking 12/08/24 03/26/25 History
transdermal patch Cessation
Probiotic 1 tab PO DAILY Supplement 03/21/25 03/26/25 History
amoxicillin 500 mg-potassium 1 tab PO BID 7 days #14 tabs 03/23/25 03/26/25 Rx
clavulanate 125 mg tablet
(Augmentin)
aspirin 81 mg chewable tablet 81 mg PO DAILY 30 days #30 tabs 03/23/25 03/26/25 Rx
carvedilol 12.5 mg tablet 12.5 mg PO BID 30 days #60 tabs 03/23/25 03/26/25 Rx
lisinopril 5 mg tablet 5 mg PO DAILY 30 days #30 tabs 03/23/25 03/26/25 Rx
pantoprazole 40 mg tablet,delayed 40 mg PO DAILY 30 days #30 tabs 03/23/25 03/26/25 Rx
release
STS%
STS %: 4.8
Review of Systems
-
History Source: Patient
General: Reports Fatigue
HEENT: Reports No Symptoms
Respiratory: Reports No Symptoms
Cardiac: Reports No Symptoms
Abdomen/GI: Reports No Symptoms
: Reports No Symptoms
Musculoskeletal: Reports No Symptoms
Skin: Reports No Symptoms
Neurological: Reports No Symptoms
Vascular: Reports No Symptoms
Physical Exam
Vital Signs
Temp 98.0 F 03/26/25 07:41
Temp route: Temporal 03/26/25 07:41
Pulse 64 03/26/25 08:59
Resp Rate 20 03/26/25 08:59
Blood pressure 149/47 03/26/25 09:14
Blood pressure extremity used: Left upper arm 03/26/25 09:14
Position: Lying 03/26/25 08:59
SaO2 98 03/26/25 09:44
Oxygen Mode of Delivery Room air 03/26/25 09:14
Can the patient verbally communicate their pain? Yes 03/26/25 09:44
Actual Weight 80.3 kg 03/18/25 09:04
Body Mass Index (BMI) 29.5 03/18/25 09:04
Labs
03/18/25 09:11
03/18/25 09:11
Diagnostic Studies
ECHOCARDIOGRAM 03/09/2024
Aortic Valve
Thickened aortic valve with restricted leaflet motion. Severe aortic stenosis.
The peak gradient across the valve is 77 mmHg with a mean of 42 mmHg. Using a
LVOT diameter of 1.8 cm, the PRADEEP is 0.7 cm sq. Moderate aortic regurgitation.
CARDIAC CATHETERIZATION 03/25/2025
CONCLUSIONS
1. Nonobstructive coronary artery disease in right dominant system as described
2. Mildly elevated LV filling pressure, mild postcapillary pulmonary hypertension, and normal cardiac output
3. Severe normal flow aortic stenosis
RECOMMENDATIONS
1. Proceed with workup for TAVR/SAVR
2. Aggressive secondary prevention of coronary artery disease
Procedure Type:�Isolated AVR
Perioperative Outcome Estimate %
Operative Mortality 4.81%
Morbidity & Mortality 16.2%
Stroke 0.685%
Renal Failure 4.42%
Reoperation 3.3%
Prolonged Ventilation 9.98%
Deep Sternal Wound Infection 0.325%
Long Hospital Stay (>14 days) 8.28%
Short Hospital Stay (<6 days)* 27.7%
Exam
General: Well Developed, Well Nourished and No Apparent Distress
HEENT: Normocephalic and PERRLA
Neck: Trachea Midline
Respiratory: Clear (anteriorly)
Cardiac: Regular Rhythm and Murmur (III/ LYN)
GI: Soft and Non Tender
Rectal: Deferred by Provider
Skin: Warm and Dry
Neuro: Awake and Alert
Psych: Calm
Assessment / Plan
-
Aortic stenosis
Continue TAVR evaluation
Trend Creatinine after contrast (Rx given)
TAVR CT Scan (04/08)
CT surgical consult (TT 04/19)
Frailty testing and [id number] at consult
Continue aspirin
Heart team discussion
Pt is edentulous and will not need dental clearance
Data Reviewed
-
EKG: Tracing Personally Visualized and interpreted
Vb Net Programmer: Report Reviewed by me and Discussed with Physician
Echo: Report Reviewed by me and Discussed with Physician
Labs: Labs Reviewed by me
Old Records: Reviewed
Total Time Spent with Patient (in minutes): 45
== END 2025-03-26 12:10 | disposition home or self-care (01) ==
LOC: CATH 06:49
PROVIDERS: ATTENDING PHYSICIAN Student in an Organized Health Care Education/Training Program; FAMILY PHYSICIAN Family Medicine; OTHER PHYSICIAN Internal Medicine
DX: I35.0 Nonrheumatic aortic (valve) stenosis (principal); I25.10 Atherosclerotic heart disease of native coronary artery without angina pectoris; I27.29 Other secondary pulmonary hypertension; E11.9 Type 2 diabetes mellitus without complications; E78.5 Hyperlipidemia, unspecified; Z87.891 Personal history of nicotine dependence; I10 Essential (primary) hypertension; E03.9 Hypothyroidism, unspecified; E87.1 Hypo-osmolality and hyponatremia; I45.10 Unspecified right bundle-branch block; Z79.890 Hormone replacement therapy; K57.90 Diverticulosis of intestine, part unspecified, without perforation or abscess without bleeding; Z90.49 Acquired absence of other specified parts of digestive tract; Z83.3 Family history of diabetes mellitus; E04.2 Nontoxic multinodular goiter; Z79.82 Long term (current) use of aspirin; Z79.899 Other long term (current) drug therapy
CPT/HCPCS: 99152; 99153; 36415; 80053; 85025; 93005; 93460; C1894; Q9967

== ENCOUNTER → 2025-04-08 08:29 | Outpatient (REF) | payer MEDICARE, SELFPAY | LOC: RAD 08:29 | PROVIDERS: ATTENDING PHYSICIAN Nurse Practitioner Acute Care; FAMILY PHYSICIAN Family Medicine | DX: I35.0 Nonrheumatic aortic (valve) stenosis (principal) | CPT/HCPCS: 74174; 75572; Q9967 ==

== ENCOUNTER 2025-05-04 12:00 | Inpatient (IN) | payer MEDICARE, SELFPAY ==
[2025-05-04] VITALS (9 sets, daily range): BP systolic 100–182; BP diastolic 35–76; BMI 30.8; BMI 30.5
--- NOTE | 2025-05-04 08:44 | ED.GENMED ---
History of Present Illness
General
Chief Complaint: Urinary Symptoms
Source: patient and spouse
Exam Limitations: altered mental status
Time Seen by Provider: 05/04/25 08:26
Nursing documentation reviewed up to this point in time: agreed with
History of Present Illness
History of Present Illness:
The patient is a 69-year-old female w h/o adrenal insufficiency, severe aortic stenosis, smoker, HTN, hypothyroidism, admitted 03/20-03/23 for pyelonephritis, septic shock, presenting with lethargy and and temp 101�F. states she was well
yesterday, found her lethargic and change in mental state this a.m. States this is how she's presented in the past with UTIs.
She's had nausea but no vomiting, pt lethargic, denies chest pain or abdominal pain. No recent travel. Her living arrangement is at home with her spouse. Furthermore, she is scheduled for an aortic valve replacement surgery next week. She was
scheduled for her preop visit today.
Past History
Past History
ED Past Medical History: HTN, Hypercholesterolemia, NIDDM, Hypothyroidism, Other (UTI with septicemia) and Other (Adrenal insufficiency, severe aortic stenosis)
ED Past Surgical History: Other (Skin excision)
Social History
Tobacco: Smoker
Alcohol: None
Drug: None
Personal:
Living: with family
Employment: Retired
Family History
Family History: Other (Noncontributory)
Review of Systems
Review of Systems
Allergies reviewed?: Yes
All Other Systems: ROS reviewed and negative except as documented in HPI and ROS
Constitutional: Reports fever and fatigue
Respiratory: Denies trouble breathing
Cardiac: Denies chest pain
ABD/GI: Reports nausea; Denies abdominal pain, vomiting or diarrhea
Musculoskeletal: Denies edema
Skin: Reports no symptoms
Neurological: Reports other (lethargic)
Phy Exam
Physical Exam
Physical Exam:
GENERAL: Lethargic, arousable. Oriented to name and 'hospital' states 2004 then 2015 for year..
CONSTITUTIONAL: T
EYES: clear, conjunctivae normal, not focusing on speaker
ENMT: dry mucus membranes, Pharynx nl
RESPIRATORY: Regular respirations, nonlabored, lungs clear.
CARDIOVASCULAR: Regular rate and rhythm, no murmurs, no rubs.
GI: Soft, nontender, normal BS
MUSCULOSKELETAL: Moves with ease. Well perfused.
SKIN: Warm, dry, pink
PSYCH:Depressed mood and affect. Well kept.
NEUROLOGIC: Awake, lethargic, Following commands, strength equal throughout. No focal neurological deficits
Sepsis
Sepsis Screening
Sepsis Assessment: Sepsis
Sepsis Screen
Sepsis Screen: Sepsis
Date: 05/04/25
Time: 16:47
Course
Orders/Labs/Results
Orders:
Orders
05/04/25 Breakfast
Cholesterol Lowering
Cholesterol Lowering: Sodium, 2 Gram
05/04/25 08:43
0.9% Sodium Chloride 1000 ml [Nss] 1,000 ml IV BOLUS
Acetaminophen [Tylenol/Feverall] 650 mg RECTAL NOW STA
05/04/25 08:46
Complete Blood Count/With Diff Urgent
Comprehensive Metabolic Panel Urgent
Lactic Acid Q4H
Comment: CANCEL 2nd LACTIC ACID IF 1st LACTIC ACID IS LESS THAN 2
Urinalysis Reflex To Culture Urgent
Date Specimen was Collected: 05/04/25
Time Specimen was Collected: 08:45
Urine Microscopic Reflex Cult Urgent
Blood Culture Q30M
FRANCIA Source: Blood/Venous
Specimen Description:
Blood Culture Q30M
FRANCIA Source: Blood/Venous
Specimen Description:
Urine Culture Urgent
FRANCIA Source: U
Specimen Description:
Date Specimen was Collected: 05/04/25
Time Specimen was Collected: 08:45
05/04/25 08:53
Piperacillin/Tazo 3.375 Gram [Zosyn] 3.375 gram in 50 ml IV NOW
05/04/25 08:57
Protime/PTT Urgent
05/04/25 09:01
Vancomycin [Vancocin] 2,000 mg 0.9% Sodium Chloride 500 ml [Nss] 500 ml IV NOW
05/04/25 09:17
Straight Cath As Directed
Frequency: One time now
05/04/25 10:42
Code Status As Directed
Resuscitation Status: Full Code
Docusate W/Senna [Senokot-S] 1 tablet PO BIDPRN PRN
Polyethylene Glycol Powder [Miralax] 17 grams PO DAILYPRN PRN
Activity As Directed
Activity Level: As Tolerated
Vital Signs As Directed
Frequency: Per unit guidelines
DX Deep Vein Thrombosis Video Routine
05/04/25 10:45
0.9% Sodium Chloride 1000 ml [Nss] 1,000 ml IV 100 mls/hr
05/04/25 11:30
Admit/Transfer Patient As Directed
Co-Sign Provider:
Level of Care: Inpatient admission
Assign to:: Medical/Surgical
Physician / Group: Hospitalist: Paola
Diagnosis: Sepsis secondary to UTI
Reason for Hospitalization: Sepsis secondary to UTI
Expected length of stay greater than two midnights?: Yes
ELOS- Estimated Length of Stay in days: 3
I certify the patient meets the requirements for IP care: Yes
PRN Pain Medication Management As Directed
May give lesser potent ordered pain med per pt: Yes
preference::
Protocol:: Medication orders for pain may be administered in a
manner that supports deferring to patient preference
when the pt is:
- Requesting an ordered lesser potent pain medication.
Least to most potent pain medications are defined
as: acetaminophen < NSAID < tramadol < opioids
(morphine, oxycodone, hydromorphone).
- Requesting a lesser dose of the same medication IF
ORDERED.
- Requesting a less intrusive route of administration
if both routes are prescribed by the provider (PO <
IV).
05/04/25 11:44
UROLOGY CONSULT Routine
Consulting Provider: Edison Shannon
Was physician already notified: Yes
Comment: recurrent UTI, hx/o colovesicular fistula
05/04/25 15:00
Piperacillin/Tazo 3.375 Gram [Zosyn] 3.375 gram in 50 ml IV Q6H
05/04/25 18:00
Enoxaparin Sodium [Lovenox] 40 mg SC QPM
Rosuvastatin Calcium [Crestor] 5 mg PO QPM
05/05/25 06:00
BMP [Basic Metabolic Panel] IN AM
CBC/With Diff [Complete Blood Count/With Diff] IN AM
Levothyroxine [Synthroid] 75 mcg PO DAILY@0600
05/05/25 08:00
Aspirin Chewable [Low Strength Aspirin] 81 mg PO DAILY
Hydrocortisone [Hydrocortone/Cortef] 20 mg PO DAILY
Lactobac/Bifidobac [Visbiome] 1 cap PO DAILY
Multivitamin [Theragran] 1 tablet PO DAILY
Nicotine [Nicoderm Transdermal] 14 mg TRANSDERM DAILY
Pantoprazole [Protonix] 40 mg PO DAILY
05/06/25 06:00
BMP [Basic Metabolic Panel] IN AM
CBC/With Diff [Complete Blood Count/With Diff] IN AM
05/07/25 06:00
BMP [Basic Metabolic Panel] IN AM
CBC/With Diff [Complete Blood Count/With Diff] IN AM
Abnormal Lab Results
05/04/25
08:46
WBC 16.1 H 10^3/uL
(4.8-10.8)
RBC 3.39 L 10^6/uL
(4.20-5.40)
Hgb 11.6 L g/dL
(12.0-16.0)
Hct 34.2 L %
(37.0-47.0)
MCV 100.9 H fL
(81.0-99.0)
MCH 34.2 H pg
(27.0-31.0)
MPV 11.7 H fL
(7.4-10.4)
Abs Immat Gran (auto) 0.1 H 10^3/uL
(0-0.05)
Absolute Neuts (auto) 9.6 H 10^3/uL
(1.4-6.5)
Absolute Lymphs (auto) 4.2 H 10^3/uL
(1.2-3.4)
Absolute Monos (auto) 1.7 H 10^3/uL
(0.1-0.6)
Immature Gran % 0.6 H %
(0-0.5)
Monocytes % 10.6 H %
(1.7-9.3)
Glucose 160 H mg/dl
(70-99)
Ur Occult Blood Reflex 4+ A
(Negative)
Urine Nitrite (Reflex) Positive A
(Negative)
Leukocyte Esterase Rfl 3+ A
(Negative)
Urine RBC 16-20 A /HPF
(0-2)
Urine WBC (Reflex) >100 A /HPF
(0-5)
Urine Bacteria (Reflex) Many A
(Negative)
Urine Albumin (Reflex) 2+ A
(Neg - Trace)
05/04/25 08:46
05/04/25 08:46
Vital Signs
Initial and Last Documented VS:
Initial Vital Signs
Temp Pulse Resp BP Pulse Ox
101.0 F H 101 18 152/63 99
05/04/25 08:22 05/04/25 08:22 05/04/25 08:22 05/04/25 08:22 05/04/25 08:22
Last Documented Vital Signs
Temp Pulse Resp BP Pulse Ox
99.5 F 84 20 132/48 98
05/04/25 14:09 05/04/25 14:09 05/04/25 14:09 05/04/25 14:09 05/04/25 16:10
Clinic Nurse consulted with Physician
Clinic Nurse consulted with physician?: Yes
Name of Physician Consulted: Radha
MDM/Problems Addressed
Differential Diagnosis Includes:
UTI, Pyelonephritis, Sepsis, SIRS, kidney stone, Dehydration, metabolic delirium
MDM/Problems Addressed:
The patient is a 69-year-old female w h/o adrenal insufficiency, severe aortic stenosis, smoker, HTN, hypothyroidism, admitted 03/20-03/23 for pyelonephritis, septic shock, presenting with lethargy and and temp 101�F. states she was well
yesterday, found her lethargic and change in mental state this a.m. States this is how she's presented in the past with UTIs, with sudden change in MS.
She's had nausea but no vomiting, pt lethargic, denies chest pain or abdominal pain. No recent travel. Her living arrangement is at home with her spouse. Furthermore, she is scheduled for an aortic valve replacement surgery next week. She was
scheduled for her preop visit today.
No focal neuro deficits, do not suspect CVA
Rectal temp: 102.4
Problems:
Acute:
- Lethargy
- Fever
Chronic:
- Thyroid dysfunction (under cigarette inspector care)
Plan - Monitor patients vital signs and conduct diagnostic workup to determine the cause of the current symptoms, considering the upcoming aortic valve surgery.
10:00 AM:
Reviewed abd/pelvis CT scan from 03/20, no stones, no need to repeat.
CBC: WBC 16.1 with shift and monos
CMP normal
U/A:>100 WBC+leukocyts, and nitrites
Plan: Admit Urosepsis. Change in mental state.Hospitalist notified of admission.
*Pulse Oximetry
SaO2: 99
Oxygen Mode of Delivery: Room air
Patient hypoxic: no
*Critical Care Note
Total Time (30-74mins, 75-104mins- exclusive of procedures): Not Applicable
ED Attending Note
-
Portions of this chart may have been created with voice recognition software.� Occasional wrong word or��sound alike� substitutions may have occurred due to the inherent limitations of voice recognition software.
Discharge Plan
Departure
Patient Disposition: Admit
Date of Disposition: 05/04/25
Time of Disposition: 10:00
Presentation/result/management discussed w/ accepting MD/DO: Hospitalist
Condition: Serious
Discharge Problem:
Acute UTI, Sepsis, Altered mental state
Interventions
Interventions:
*General Assessment Last Done: 05/04/25 08:22
*Neglect/Abuse Screening Last Done: 05/04/25 08:22
*ED- Fall Risk Assessment Last Done: 05/04/25 08:22
*ED COVID-19 Vaccine History Last Done: 05/04/25 08:22
*Nursing Disposition Last Done: 05/04/25 13:22
Discharge Date and Time
Discharge Date/Time: 05/04/25 13:23
[2025-05-04] MEDS: NSS 1000 IV ×2 (08:49→13:56)
[2025-05-04] MEDS: TYLENOL/FEVERALL 650 MG RECTAL (08:52)
[2025-05-04 08:56] LABS: Hematocrit 34.2 % (37.0-47.0); Hemoglobin 11.6 g/dL (12.0-16.0); Mean Corp Hgb Conc. 33.9 g/dL (33.0-37.0); Mean Corpuscular Volume 100.9 fL (81.0-99.0); Nucleated Red Blood Cells % 0 %; Platelet Count 251 10^3/uL (130-400); Red Cell Dist. Width 13.3 % (11.5-14.5)
[2025-05-04 08:59] LABS: Urine Character Clear (Clear)
[2025-05-04] MEDS: ZOSYN 50 IV ×3 (09:05→21:40)
[2025-05-04 09:19] LABS: ALT (SGPT) 15 U/L (0-35); AST (SGOT) 16 U/L (14-36); Albumin 4.3 g/dl (3.5-5.0); Alkaline Phosphatase 74 U/L (38-126); Blood Urea Nitrogen 14 mg/dl (7-17); Calcium 8.8 mg/dl (8.4-10.2); Carbon Dioxide 28 mmol/L (22-30); Chloride 102 mmol/L (98-107); Estimated Creatinine Clearance 69 ml/min; Glucose 160 mg/dl (70-99); Potassium 4.2 mmol/L (3.5-5.1); Sodium 140 mmol/L (135-145); Total Protein 7.2 g/dl (6.3-8.2); eGFR > 60.00
[2025-05-04 09:24] LABS: INR 1.11; PT 14.6 Sec (11.4-14.6)
[2025-05-04 09:25] LABS: APTT 34.2 Sec (23.4-35.0)
[2025-05-04] MEDS: VANCOCIN 540 MG IV (09:36)
[2025-05-04 09:48] LABS: Urine Red Blood Cell 16-20 /HPF (0-2)
[2025-05-04 09:50] LABS: Urine White Cell >100 /HPF (0-5)
--- NOTE | 2025-05-04 11:44 | CM ---
CM reviewed chart and met with pt and bedside in ED.
Lives with , 2 story home, 2 SHAR, second floor BR/BA
Independent in ADLs, personal care and ambulation at baseline. Does have RW and single point cane in home.
No hx VN/SNF.
Pt is scheduled for surgery later this month, was supposed to have preop testing today, her did cancel the
appointment but is concerned about rescheduling and possible surgery delay.
PCP: Kavitha Escalera
Pharmacy: [facility]
Discharge plan: Anticipate discharge home, watch for needs
--- NOTE | 2025-05-04 12:33 | HPS.HSE ---
Family Physician
-
Family Physician: Kavitha Escalera
Chief Complaint
-
Lethargy and fever
History of Present Illness
Ms. Newman is a 69-year-old female with a medical history of adrenal insufficiency, central hypothyroidism, severe aortic stenosis with moderate aortic regurgitation (currently pending surgical replacement), diverticulitis with colovesicular fistula
(status post sigmoidectomy and bladder repair 03/08/2023), nicotine dependence, hypertension, and recurrent UTI (recent admission for pyelonephritis) who presented with lethargy, body aches, and fevers. She also reports mild lower abdominal pain and
intermittent diarrhea over the past week. She was feeling generally well yesterday however did have an episode of diarrhea. This morning she felt achy and was experiencing chills. The patient and her report that her presenting symptoms
are consistent with prior UTIs.
In the ED, she was found to be febrile with a T of 102.4 �F, tachycardic with HR 105, and was normotensive. Her labs showed leukocytosis of 16,000 with a left shift. UA showed significant pyuria and bacteriuria. She was bolused a liter of
resuscitative fluids, cultures were obtained, and she was started on broad-spectrum antibiotics. She has been admitted for further evaluation and management of sepsis secondary to UTI.
Medical History
Past Medical History
Past Medical History: Reports Other
Additional Past Medical History:
adrenal insufficiency, central hypothyroidism, severe aortic stenosis with moderate aortic regurgitation (currently pending surgical replacement), diverticulitis with colovesicular fistula (status post sigmoidectomy and bladder repair 03/08/2023),
nicotine dependence, hypertension, and recurrent UTI (recent admission for pyelonephritis)
Past Surgical History: Reports Other
Additional Past Surgical History:
Sigmoidectomy and bladder repair 03/08/2023
Social History
Tobacco: Smoker
Alcohol: None
Drug: None
Personal:
Living: With Family
Family History
Family History: Not pertinent
Allergies / Home Medications
Allergies reflects when Allergies were last updated in [facility].
Home Medications with original date entered in [facility]
Allergy/Medication List:
Allergies
Allergy/AdvReac Type Severity Reaction Status Date / Time
No Known Allergies Allergy Verified 04/29/25 14:43
Home Medications
furosemide 20 mg tablet 20 mg PO DAILY Fluid retention/Swelling 03/04/23
hydrocortisone 10 mg tablet 20 mg PO DAILY Anti-inflammatory 03/04/23
rosuvastatin 5 mg tablet (Crestor) 5 mg PO QPM High Cholesterol 09/12/24
levothyroxine 75 mcg tablet (Synthroid) 75 mcg PO DAILY Thyroid 09/17/24
nicotine 14 mg/24 hr daily transdermal patch 14 mg transdermal DAILY Smoking Cessation 12/08/24
Lactobac no.2-Bifidobac no.1-S. thermo 112.5 billion cell capsule (Visbiome) 1 cap PO DAILY Supplement ##0 03/21/25
aspirin 81 mg chewable tablet 81 mg PO DAILY Heart Disease/Condition 05/04/25
lisinopril 5 mg tablet 5 mg PO DAILY Blood Pressure 05/04/25
pantoprazole 40 mg tablet,delayed release 40 mg PO DAILY Gastrointestinal Issue 05/04/25
therapeutic multivitamin 1 tab PO DAILY Supplement 05/04/25
Review of Systems
-
History Source: Patient
A 12 point ROS was completed and negative except as noted: Yes
Constitutional: Reports Chills and Other (Body aches)
Abdomen/GI: Reports Abdominal Pain (Lower abdominal pain)
Physical Exam
Vital Signs
Vital Signs
Temp Pulse Resp BP Pulse Ox
99.9 F 78 23 100/36 92
05/04/25 11:24 05/04/25 12:15 05/04/25 12:15 05/04/25 12:00 05/04/25 12:15
Physical Exam
General: No Apparent Distress
Laboratory Results
-
05/04/25 08:46
05/04/25 08:46
Laboratory Results
PT 14.6 Sec (11.4-14.6) 05/04/25 08:57
INR 1.11 05/04/25 08:57
APTT 34.2 Sec (23.4-35.0) 05/04/25 08:57
Lactic Acid 1.6 mmol/L (0.7-2.0) 05/04/25 08:46
Total Bilirubin 0.8 mg/dl (0.2-1.3) 05/04/25 08:46
AST 16 U/L (14-36) 05/04/25 08:46
ALT 15 U/L (0-35) 05/04/25 08:46
Alkaline Phosphatase 74 U/L (38-126) 05/04/25 08:46
Impression/Plan
-
General: No Apparent Distress, Comfortable and Conversant
HEENT: NormoCephalic, Moist mucous membranes, Atraumatic
Respiratory: Clear and Non Labored Respirations
Cardiac: S1/S2 and Regular Rhythm; No Rub or Gallop
GI: Soft, mild tenderness suprapubic region, Non Distended and Normal Bowel Sounds
Musculoskeletal: No Edema, no deformity
Skin: Warm and dry
: NO Beltran
Neuro: Awake, Alert, Nonfocal/grossly intact
Psych: Calm and Intact Judgment/Insight
Ms. Newman is a 69-year-old female with a medical history of adrenal insufficiency, central hypothyroidism, severe aortic stenosis with moderate aortic regurgitation (currently pending surgical AV replacement), diverticulitis with colovesicular
fistula (status post sigmoidectomy and bladder repair 03/08/2023), nicotine dependence, hypertension, and recurrent UTI (recent admission for pyelonephritis) who presented with lethargy, body aches, and fevers. She also reports mild lower abdominal
pain and intermittent diarrhea over the past week. She was feeling generally well yesterday however did have an episode of diarrhea. This morning she felt achy and was experiencing chills. The patient and her report that her presenting
symptoms are consistent with prior UTIs.
In the ED, she was found to be febrile with a T of 102.4 �F, tachycardic with HR 105, and was normotensive. Her labs showed leukocytosis of 16,000 with a left shift. UA showed significant pyuria and bacteriuria. She was bolused a liter of
resuscitative fluids, cultures were obtained, and she was started on broad-spectrum antibiotics. She has been admitted for further evaluation and management of sepsis secondary to UTI.
Sepsis secondary to UTI:
- Continue broad-spectrum antibiotics with vancomycin and Zosyn
- Follow-up cultures
- Will check CT imaging of abdomen pelvis with IV and oral contrast for further evaluation of her GI tract and renal collecting system considering recurrent UTIs and history of colovesicular fistula
- Urology consult
- Resuscitative IV fluids
- If she has recurrence of diarrhea we will check for C. difficile
Adrenal insufficiency:
- Continue home dose of hydrocortisone 20 mg p.o. daily
- Will give stress dose of IV hydrocortisone 50 mg x 1
Hypertension:
- Holding home lisinopril due to borderline low blood pressure, restart as needed
Severe aortic stenosis:
- Recently worked up for possible TAVR, now plan has been for surgical aortic valve replacement next week which will need to be rescheduled
- Monitor BP, avoid hypotension
- Holding home Lasix for now but will restart as needed if she becomes volume overloaded
Central hypothyroidism:
- Continue home thyroxine 75 mcg daily
Tobacco dependence:
- Nicotine patch provided
DVT prophylaxis: Subcu Lovenox
CODE STATUS: Full code
Total time spent on today's encounter was 60 minutes
--- NOTE | 2025-05-04 13:07 | PHA.VAN.IN ---
Assessment
- Assessment
Renal Function: Appears similar to baseline
Concomitant Antimicrobials: piperacillin/tazobactam
AUC Dosing Plan
- Dosing Variables
Dosing Weight (kg): 84
Dosing CrCl (ml/min): 69
Vd coefficient (L/kg): 0.7
- Empiric Dosing
Initial / Loading Dose: 2000mg - 05/04 09:36
Maintenance Regimen: Vanc 750mg Q12H starting at 1800
Estimated AUC (mcg*h/mL): 426
Estimated Peak (mcg*h/mL): 24.4
Estimated Trough (mcg/ml): 12.4
Estimated Half Life (H): 11.2
- Monitoring
No levels ordered at this time: consider levels in next few days
Pharmacokinetics Vancomycin I
- -
Patient Age: 69
Patient Sex: Female
Vancomycin Day #: 1
Indication: Genito-Urinary Tract
Requesting Provider: Dr. Guevara
Pertinent Antimicrobial Allergies:
NKDA
Height / Weight:
Height 5 ft 5 in
Actual Weight 83.9 kg
Pertinent Past Medical History: BMI ~31
- Vital Signs / Lab Results
Temp Pulse Resp BP Pulse Ox
99.9 F 78 23 100/36 92
05/04/25 11:24 05/04/25 12:15 05/04/25 12:15 05/04/25 12:00 05/04/25 12:15
Lab Results - Hematology
05/04/25
08:46
WBC 16.1 H
Lab Results - Chemistry
05/04/25
08:46
BUN 14
Creatinine 0.8
Estimated Creat Clear 69
Albumin 4.3
05/04/25 05/04/25
08:45 08:46
Lactic Acid Cancelled 1.6
Lab Results - Urine
05/04/25
08:46
Urine Nitrite (Reflex) Positive A
Leukocyte Esterase Rfl 3+ A
Urine WBC (Reflex) >100 A
Ur Squamous Epith Cells 11-15
Urine Bacteria (Reflex) Many A
[2025-05-04] MEDS: OMNIPAQUE 50 ML PO (13:56)
[2025-05-04] MEDS: SOLU-CORTEF 50 MG IV (13:57)
--- NOTE | 2025-05-04 16:15 | PTCARENOTE ---
Received pt from ED into room 406-2. Pt AAOx3. Lethargic/drowsy. Excoriated noted on sacrum. Pt urinating on bedpan. Pt states she feels too weak to get up but ambulatory at baseline. NS @ 100ml/hr initiated into R AC. Oral contrast administered for
CT. Pt states no needs at this time. Call chew within reach, oriented to room, bed alarm in place and plugged in. at bedside.
--- NOTE | 2025-05-04 17:54 | CONS.URO ---
Consultation
-
Date/Time Consultation Performed: 05/04/25 1200
Performing Provider: Peffer
Reason for Consultation: Recurrent UTI
Medical History
History of Present Illness
69F
PMH adrenal insufficiency, central hypothyroidism, severe aortic stenosis, nicotine dependence, hypertension
History of diverticulitis with colovesical fistula (status post sigmoidectomy and bladder repair 03/08/2023)
Over the past year or two she has had several UTIs and most recently had an admission for suspected pyelonephritis last month 03/2025
She presented today with lethargy, body aches, and fevers. She also reports mild lower abdominal pain and intermittent diarrhea over the past week.
She reports some urinary frequency and dysuria
The patient and her report that her presenting symptoms are consistent with prior UTIs.
In the ED, she was found to be febrile with a T of 102.4 �F, tachycardic with HR 105, and was normotensive. Her labs showed leukocytosis of 16,000 with a left shift. UA showed significant pyuria and bacteriuria. She was bolused a liter of
resuscitative fluids, cultures were obtained, and she was started on broad-spectrum antibiotics. She has been admitted for further evaluation and management of sepsis secondary to UTI.
CTAP was obtained which showed possible developing abscess/phlegmon of R kidney
She has not had urine debris like with past fistula
Past Medical History
Past Medical History: Other (as above)
Past Surgical History: Other (as above)
Social History
Tobacco: Smoker
Drug: None
Family History
Family History: Reviewed & Not Pertinent
Allergies/Home Medications
Allergies
Allergy/AdvReac Type Severity Reaction Status Date / Time
No Known Allergies Allergy Verified 04/29/25 14:43
Home Medications
�Medication �Instructions �Recorded �Confirmed �Type
furosemide 20 mg tablet 20 mg PO DAILY Fluid 03/04/23 05/04/25 History
retention/Swelling
hydrocortisone 10 mg tablet 20 mg PO DAILY Anti-inflammatory 03/04/23 05/04/25 History
rosuvastatin 5 mg tablet (Crestor) 5 mg PO QPM High Cholesterol 09/12/24 05/04/25 History
levothyroxine 75 mcg tablet 75 mcg PO DAILY Thyroid 09/17/24 05/04/25 History
(Synthroid)
nicotine 14 mg/24 hr daily 14 mg transdermal DAILY Smoking 12/08/24 05/04/25 History
transdermal patch Cessation
Lactobac no.2-Bifidobac no.1-S. 1 cap PO DAILY Supplement ##0 03/21/25 05/04/25 History
thermo 112.5 billion cell capsule
(Visbiome)
aspirin 81 mg chewable tablet 81 mg PO DAILY Heart 05/04/25 05/04/25 History
Disease/Condition
lisinopril 5 mg tablet 5 mg PO DAILY Blood Pressure 05/04/25 05/04/25 History
pantoprazole 40 mg tablet,delayed 40 mg PO DAILY Gastrointestinal 05/04/25 05/04/25 History
release Issue
therapeutic multivitamin 1 tab PO DAILY Supplement 05/04/25 05/04/25 History
Physical Exam
Vital Signs
Vital Signs
Temp Pulse Resp BP Pulse Ox
100.2 F 86 18 141/53 98
05/04/25 15:45 05/04/25 15:45 05/04/25 15:45 05/04/25 15:45 05/04/25 16:10
Lab / Testing Results
Laboratory Results
05/04/25 08:46
05/04/25 08:46
Physical Exam
General: Well Developed, Well Nourished, Fever and Poor Appetite
Respiratory: Clear and Non Labored Respirations
GI: Soft and Non Tender
Genito-urinary: No Costovertebral Tend
Neuro: AO x 3
Psych: Calm and Intact Judgement
Assessment / Plan
-
69F with hx of colovesical fistula s/p repair in 2022
Admitted with recurrent UTI and sepsis s/p recent admission for suspected left pyelonephritis 03/20[address]
CT showing possible developing R renal abscess
- Continue broad spec abx for complicated UTI
- 2cm focal R pyelonephritis and possible developing abscess on CT
- Small renal abscess can often be treated with abx alone - will need extended course
- Renal US in 48 hrs or if systemic infection not improving to eval for progression
- IR consult for abscess drainage if needed
- CT shows no evidence of recurrent colovesical fistula - good contrast through bowel with no associated inflammation along bladder wall
- Recommend starting methenamine hippurate 1g BID after completing abx course for recurrent UTI
- Outpatient follow up after discharge
[2025-05-04] MEDS: CRESTOR 5 MG PO (17:55)
[2025-05-04] MEDS: VANCOCIN 150 IV (17:55)
[2025-05-04] MEDS: LOVENOX 40 MG SC (17:55)
[2025-05-04] MEDS: DESENEX/MITRAZOL/ZEASORB 1 APPLIC TOPICAL (21:40)
[2025-05-04] MEDS: TYLENOL 650 MG PO (23:05)
[2025-05-05] MEDS: TORADOL 15 MG IV (00:44)
--- NOTE | 2025-05-05 01:29 | PTCARENOTE ---
pt with elevated BP at 2300 of 182/76, HR elevated 108, temp of 102.9, RR 22, 95 on room air. no complaints of pain. pt restless, confused, and drowsy. FILTER TENDER JELLY made aware, new orders for stat IV toradol 15mg administered. will continue to monitor.
[2025-05-05] MEDS: ZOSYN 50 IV ×4 (02:05→20:54)
[2025-05-05 03:15] VITALS: BP 157/58
[2025-05-05] MEDS: NSS IV (04:12)
[2025-05-05] MEDS: NSS 1000 IV (04:44)
[2025-05-05] MEDS: SYNTHROID 75 MCG PO (05:02)
[2025-05-05] MEDS: VANCOCIN 150 IV (05:02)
[2025-05-05 07:38] VITALS: BP 145/60
[2025-05-05 07:46] LABS: Hematocrit 28.8 % (37.0-47.0); Hemoglobin 9.8 g/dL (12.0-16.0); Mean Corp Hgb Conc. 34.0 g/dL (33.0-37.0); Mean Corpuscular Volume 100.7 fL (81.0-99.0); Nucleated Red Blood Cells % 0 %; Platelet Count 202 10^3/uL (130-400); Red Cell Dist. Width 13.2 % (11.5-14.5)
[2025-05-05] MEDS: TYLENOL 650 MG PO ×3 (08:01→23:17)
[2025-05-05] MEDS: HYDROCORTONE/CORTEF 20 MG PO (08:01)
[2025-05-05] MEDS: THERAGRAN 1 TABLET PO (08:01)
[2025-05-05] MEDS: NICODERM TRANSDERMAL 14 MG TRANSDERM (08:01)
[2025-05-05] MEDS: LOW STRENGTH ASPIRIN 81 MG PO (08:02)
[2025-05-05] MEDS: PROTONIX 40 MG PO (08:02)
[2025-05-05] MEDS: DESENEX/MITRAZOL/ZEASORB 1 APPLIC TOPICAL ×2 (08:02→20:55)
[2025-05-05] MEDS: VISBIOME 1 CAP PO (08:02)
[2025-05-05 08:15] LABS: Blood Urea Nitrogen 11 mg/dl (7-17); Calcium 8.3 mg/dl (8.4-10.2); Carbon Dioxide 26 mmol/L (22-30); Chloride 106 mmol/L (98-107); Estimated Creatinine Clearance 69 ml/min; Glucose 112 mg/dl (70-99); Potassium 3.9 mmol/L (3.5-5.1); Sodium 138 mmol/L (135-145); eGFR > 60.00
--- NOTE | 2025-05-05 08:25 | W.PN.URO.CBU ---
Today's Communication / Plan
-
Continue abx
F/U cultures
Renal US tomorrow
Assessment / Plan
-
69F with hx of colovesical fistula s/p repair in 2022
Admitted with recurrent UTI and sepsis s/p recent admission for suspected left pyelonephritis 03/[address] showing possible developing R renal abscess
- Continue broad spec abx for complicated UTI
- 2cm focal R pyelonephritis vs possible developing abscess on CT
- Small renal abscess can often be treated with abx alone - will need extended course
- Renal US in 48 hrs or if systemic infection not improving to eval for progression
- IR consult for abscess drainage if needed
- CT shows no evidence of recurrent colovesical fistula - good contrast through bowel with no associated inflammation along bladder wall
- Recommend starting methenamine hippurate 1g BID after completing abx course for recurrent UTI
- Outpatient follow up after discharge
Diagnosis
-
Date of Service: May 05, 2025
-
Patient Diagnosis:
Recurrent UTI
R pyelonephritis, possible renal abscess
Post Op Day:
Subjective
-
Persistent nausea
No flank pain
Objective
-
Vital Signs
Temp Pulse Resp BP Pulse Ox
99.5 F 95 18 157/58 98
05/05/25 03:15 05/05/25 03:15 05/05/25 03:15 05/05/25 03:15 05/05/25 03:15
Intake and Output
05/04/25 05/05/25 05/06/25
06:59 06:59 06:59
Intake Total 1450 / 1450
Balance 1450 / 1450
Intake:
Oral fluids 0 / 0
IV fluids (Total) 1200 / 1200
IV piggybacks 250 / 250
Other:
Number of approximated MODERATE 2
amounts of urine
How many times incontinent 1
MODERATE amount urine
How many times incontinent 3
SATURATED amount urine
Laboratory Results
05/05/25 06:50
05/05/25 06:50
Physical Exam
-
General - well developed, well nourished, no acute distress
Chest - clear bilaterally
Abdomen - soft, non-tender, no CVAT
[2025-05-05] MEDS: ZESTRIL 5 MG PO (09:17)
--- NOTE | 2025-05-05 13:30 | W.PN.HOSP.TC ---
Today's Communication/Plan
-
Assessment / Plan
Assessment / Plan
General: No Apparent Distress, Comfortable and Conversant
HEENT: NormoCephalic, Moist mucous membranes, Atraumatic
Respiratory: Clear and Non Labored Respirations
Cardiac: S1/S2 and Regular Rhythm; No Rub or Gallop
GI: Soft, mild tenderness suprapubic region, Non Distended and Normal Bowel Sounds
Musculoskeletal: No Edema, no deformity
Skin: Warm and dry
: NO Beltran
Neuro: Awake, Alert, Nonfocal/grossly intact
Psych: Calm and Intact Judgment/Insight
Ms. Newman is a 69-year-old female with a medical history of adrenal insufficiency, central hypothyroidism, severe aortic stenosis with moderate aortic regurgitation (currently pending surgical AV replacement), diverticulitis with colovesicular
fistula (status post sigmoidectomy and bladder repair 03/08/2023), nicotine dependence, hypertension, and recurrent UTI (recent admission for pyelonephritis) who presented with lethargy, body aches, and fevers. She also reports mild lower abdominal
pain and intermittent diarrhea over the past week. She was feeling generally well yesterday however did have an episode of diarrhea. This morning she felt achy and was experiencing chills. The patient and her report that her presenting
symptoms are consistent with prior UTIs.
In the ED, she was found to be febrile with a T of 102.4 �F, tachycardic with HR 105, and was normotensive. Her labs showed leukocytosis of 16,000 with a left shift. UA showed significant pyuria and bacteriuria. She was bolused a liter of
resuscitative fluids, cultures were obtained, and she was started on broad-spectrum antibiotics. She was admitted for further evaluation and management of sepsis secondary to UTI.
Sepsis secondary to UTI:
- Blood cultures growing E. coli urine cultures growing gram-negative rods, final cultures pending
- Continue antibiotics with Zosyn, vancomycin has been discontinued
- CT imaging of abdomen pelvis with IV and oral contrast shows right pyelonephritis with possibly developing abscess, also shows cystitis, does not show any evidence of recurrent colovesicular fistula
- Appreciate urology guidance, plan for renal ultrasound tomorrow 05/06
- Holding further IV fluids for now to avoid volume overload considering clinical improvement and adequate blood pressure
- Still having intermittent fevers, leukocytosis improving
Adrenal insufficiency:
- Continue home dose of hydrocortisone 20 mg p.o. daily
- Given stress dose of IV hydrocortisone 50 mg x 1
Hypertension:
- Restarted home lisinopril 5 mg daily today 05/05
Severe aortic stenosis:
- Recently worked up for possible TAVR, now plan has been for surgical aortic valve replacement next week which will need to be rescheduled
- Monitor BP, avoid hypotension
- Holding home Lasix for now but will restart as needed if she becomes volume overloaded
Central hypothyroidism:
- Continue home thyroxine 75 mcg daily
Tobacco dependence:
- Nicotine patch provided
DVT prophylaxis: Subcu Lovenox
CODE STATUS: Full code
Total time spent on today's encounter was 40 minutes
Anticipated Discharge: > 48 hours
Subjective/Interval History
-
Date of Service: May 05, 2025
Patient was seen and examined at bedside this morning. Reports feeling better than when she was initially admitted yesterday although not close to her baseline. Still has some mild suprapubic discomfort but no low back pain. Remains
intermittently febrile.
Objective Data
-
Labs:
Laboratory Results
05/05/25
06:50
WBC 13.6 H
Hgb 9.8 L
Hct 28.8 L
Plt Count 202
Sodium 138
Potassium 3.9
Chloride 106
Carbon Dioxide 26
BUN 11
Creatinine 0.8
Glucose 112 H
Calcium 8.3 L
Vital Signs:
Vital Signs
Temp Pulse Resp BP Pulse Ox
100.4 F H 92 16 145/60 99
05/05/25 07:38 05/05/25 09:17 05/05/25 07:38 05/05/25 09:17 05/05/25 09:49
I&O
05/04/25 05/05/25 05/06/25
06:59 06:59 06:59
Intake Total 1450 / 1450
Balance 1450 / 1450
Review of Systems
-
History Source: Patient
All other systems: Reviewed and negative
Constitutional: Reports Weakness
Abdomen/GI: Reports Abdominal Pain (Mild suprapubic pain)
Physical Exam
-
General: No Apparent Distress
[2025-05-05 15:06] VITALS: BP 141/48
[2025-05-05] MEDS: LOVENOX 40 MG SC (17:09)
[2025-05-05] MEDS: CRESTOR 5 MG PO (17:10)
[2025-05-05 23:36] VITALS: BP 163/72
[2025-05-06] MEDS: ZOSYN 50 IV ×4 (02:42→20:28)
[2025-05-06] MEDS: CALDOLOR 156 MG IV (03:20)
[2025-05-06] MEDS: SYNTHROID 75 MCG PO (05:09)
[2025-05-06 07:21] LABS: Hematocrit 26.0 % (37.0-47.0); Hemoglobin 9.0 g/dL (12.0-16.0); Mean Corp Hgb Conc. 34.6 g/dL (33.0-37.0); Mean Corpuscular Volume 99.2 fL (81.0-99.0); Nucleated Red Blood Cells % 0 %; Platelet Count 176 10^3/uL (130-400); Red Cell Dist. Width 13.0 % (11.5-14.5)
[2025-05-06 07:58] LABS: Blood Urea Nitrogen 8 mg/dl (7-17); Calcium 7.9 mg/dl (8.4-10.2); Carbon Dioxide 20 mmol/L (22-30); Chloride 108 mmol/L (98-107); Estimated Creatinine Clearance 79 ml/min; Glucose 48 mg/dl (70-99); Potassium 3.1 mmol/L (3.5-5.1); Sodium 137 mmol/L (135-145); eGFR > 60.00
[2025-05-06 07:59] VITALS: BP 136/56
[2025-05-06] MEDS: ZESTRIL 5 MG PO (08:23)
[2025-05-06] MEDS: HYDROCORTONE/CORTEF 20 MG PO (08:23)
[2025-05-06] MEDS: PROTONIX 40 MG PO (08:23)
[2025-05-06] MEDS: LOW STRENGTH ASPIRIN 81 MG PO (08:23)
[2025-05-06] MEDS: NICODERM TRANSDERMAL 14 MG TRANSDERM (08:24)
[2025-05-06] MEDS: VISBIOME 1 CAP PO (08:24)
[2025-05-06] MEDS: DESENEX/MITRAZOL/ZEASORB 1 APPLIC TOPICAL ×2 (08:24→20:28)
[2025-05-06] MEDS: THERAGRAN 1 TABLET PO (08:24)
[2025-05-06 08:56] LABS: Glucose - Point of Care 107 mg/dl (70-99)
[2025-05-06] MEDS: KCL 40 MEQ PO (09:12)
[2025-05-06] MEDS: D5/0.9% SODIUM CHLORIDE 1000 IV (10:12)
[2025-05-06 10:14] LABS: Magnesium 1.8 mg/dl (1.6-2.3)
[2025-05-06 13:05] VITALS: BP 126/70; PULSE 77; O2SAT 96
--- NOTE | 2025-05-06 13:26 | W.PN.HOSP.TC ---
Today's Communication/Plan
-
Assessment / Plan
Assessment / Plan
General: No Apparent Distress, Comfortable and Conversant
HEENT: NormoCephalic, Moist mucous membranes, Atraumatic
Respiratory: Clear and Non Labored Respirations
Cardiac: S1/S2 and Regular Rhythm; No Rub or Gallop
GI: Soft, nontender, Non Distended and Normal Bowel Sounds
Musculoskeletal: No Edema, no deformity
Skin: Warm and dry
: NO Beltran
Neuro: Awake, Alert, Nonfocal/grossly intact
Psych: Calm and Intact Judgment/Insight
Ms. Newman is a 69-year-old female with a medical history of adrenal insufficiency, central hypothyroidism, severe aortic stenosis with moderate aortic regurgitation (currently pending surgical AV replacement), diverticulitis with colovesicular
fistula (status post sigmoidectomy and bladder repair 03/08/2023), nicotine dependence, hypertension, and recurrent UTI (recent admission for pyelonephritis) who presented with lethargy, body aches, and fevers. She also reports mild lower abdominal
pain and intermittent diarrhea over the past week. She was feeling generally well yesterday however did have an episode of diarrhea. This morning she felt achy and was experiencing chills. The patient and her report that her presenting
symptoms are consistent with prior UTIs.
In the ED, she was found to be febrile with a T of 102.4 �F, tachycardic with HR 105, and was normotensive. Her labs showed leukocytosis of 16,000 with a left shift. UA showed significant pyuria and bacteriuria. She was bolused a liter of
resuscitative fluids, cultures were obtained, and she was started on broad-spectrum antibiotics. She was admitted for further evaluation and management of sepsis secondary to UTI.
Sepsis secondary to UTI:
- Urine cultures growing pansensitive E. coli, blood cultures also growing E. coli with sensitivities still pending
- Continue antibiotics with Zosyn, vancomycin has been discontinued
- CT imaging of abdomen pelvis with IV and oral contrast shows right pyelonephritis with possibly developing abscess, also shows cystitis, does not show any evidence of recurrent colovesicular fistula
- Renal ultrasound today 05/06 shows resolution of right pyelonephritis with no evidence of fluid collection, also shows a simple cyst in the left kidney
- Still having intermittent fevers, leukocytosis improving
Hypoglycemia:
- Secondary to poor p.o. intake
- Will start gentle IV fluids with dextrose
- Hypoglycemic protocol in place
Hypokalemia:
- Serum potassium 3.1 on labs this morning
- Repleted, will monitor
Hypocalcemia:
- Mild with serum calcium of 7.9 with normal albumin level
- Replete orally, monitor
Adrenal insufficiency:
- Continue home dose of hydrocortisone 20 mg p.o. daily
- Given stress dose of IV hydrocortisone 50 mg x 1
Hypertension:
- Restarted home lisinopril 5 mg daily 05/05
Severe aortic stenosis:
- Recently worked up for possible TAVR, now plan has been for surgical aortic valve replacement next week which will need to be rescheduled
- Monitor BP, avoid hypotension
- Holding home Lasix for now but will restart as needed if she becomes volume overloaded
Central hypothyroidism:
- Continue home thyroxine 75 mcg daily
Tobacco dependence:
- Nicotine patch provided
DVT prophylaxis: Subcu Lovenox
CODE STATUS: Full code
Total time spent on today's encounter was 40 minutes
Anticipated Discharge: 24 - 48 hours
Subjective/Interval History
-
Date of Service: May 06, 2025
Patient was seen and examined at bedside this morning. Feeling better but still fatigued and intermittently febrile. Urine and blood cultures growing E. coli.
Objective Data
-
Labs:
Laboratory Results
05/06/25
06:40
WBC 9.8
Hgb 9.0 L
Hct 26.0 L
Plt Count 176
Sodium 137
Potassium 3.1 L
Chloride 108 H
Carbon Dioxide 20 L
BUN 8
Creatinine 0.7
Glucose 48 L*
Calcium 7.9 L
Vital Signs:
Vital Signs
Temp Pulse Resp BP Pulse Ox
98.3 F 75 20 136/56 96
05/06/25 07:59 05/06/25 08:23 05/06/25 07:59 05/06/25 08:23 05/06/25 11:20
I&O
05/05/25 05/06/25 05/07/25
06:59 06:59 06:59
Intake Total 1450 / 1450 496 / 496 480 / 480
Balance 1450 / 1450 496 / 496 480 / 480
Review of Systems
-
History Source: Patient
All other systems: Reviewed and negative
Constitutional: Reports Fatigue
Physical Exam
-
General: No Apparent Distress
[2025-05-06] MEDS: OSCAL CAL 500 500 MG PO (14:26)
[2025-05-06 15:29] VITALS: BP 129/46
--- NOTE | 2025-05-06 15:31 | W.PN.URO.CBU ---
Today's Communication / Plan
-
- No visible collection on US 05/06
- Recommend extended abx course - 14 days for complicated UTI
- If clinically worsening, reimage with CT and IR consult for abscess drainage if any present
- Recommend starting methenamine hippurate 1g BID after completing abx course for recurrent UTI
- Outpatient follow up after discharge
Assessment / Plan
-
69F with hx of colovesical fistula s/p repair in 2022
Admitted with recurrent UTI and sepsis s/p recent admission for suspected left pyelonephritis 03/[address] showing possible developing R renal abscess
- Continue broad spec abx for complicated UTI
- E coli on urine and blood cx
- 2cm focal R pyelonephritis vs possible developing abscess on admission CT
- Follow up US 05/06 showed no visible fluid collection
- Recommend extended abx course - 14 days for complicated UTI
- If clinically worsening, reimage with CT and IR consult for abscess drainage if any present
- Recommend starting methenamine hippurate 1g BID after completing abx course for recurrent UTI
- Outpatient follow up after discharge
Diagnosis
-
Date of Service: May 06, 2025
-
Patient Diagnosis:
Post Op Day:
Patient Diagnosis:
Recurrent UTI
R pyelonephritis, possible renal abscess
Post Op Day:
Subjective
-
feels much better today
no flank pain
voiding fine
Objective
-
Vital Signs
Temp Pulse Resp BP Pulse Ox
98.5 F 78 16 129/46 97
05/06/25 15:29 05/06/25 15:29 05/06/25 15:29 05/06/25 15:29 05/06/25 15:29
Intake and Output
07/02/25 07/03/25 07/04/25
06:59 06:59 06:59
Intake Total 1450 / 1450 496 / 496 720 / 720
Balance 1450 / 1450 496 / 496 720 / 720
Intake:
Oral fluids 0 / 0 240 / 240 720 / 720
IV fluids (Total) 1200 / 1200
IV piggybacks 250 / 250 256 / 256
Other:
Number of approximated SMALL 1
amounts of urine
Number of approximated MODERATE 2
amounts of urine
How many times incontinent 1
SMALL amount urine
How many times incontinent 1
MODERATE amount urine
How many times incontinent 3 3
SATURATED amount urine
Number of unmeasured liquid
stools
Rectum 3
Laboratory Results
05/06/25 06:40
05/06/25 06:40
Physical Exam
-
General - well developed, well nourished, no acute distress
Chest - clear bilaterally
Abdomen - soft, non-tender
[2025-05-06] MEDS: CRESTOR 5 MG PO (17:14)
[2025-05-06] MEDS: LOVENOX 40 MG SC (17:14)
[2025-05-06 23:24] VITALS: BP 169/65
[2025-05-06] MEDS: TYLENOL 650 MG PO (23:44)
[2025-05-07] MEDS: ZOSYN 50 IV ×2 (02:18→10:07)
[2025-05-07] MEDS: SYNTHROID 75 MCG PO (05:13)
[2025-05-07 06:06] VITALS: BMI 30.1
[2025-05-07 07:06] LABS: Hematocrit 24.5 % (37.0-47.0); Hemoglobin 8.6 g/dL (12.0-16.0); Mean Corp Hgb Conc. 35.1 g/dL (33.0-37.0); Mean Corpuscular Volume 99.6 fL (81.0-99.0); Nucleated Red Blood Cells % 0 %; Platelet Count 181 10^3/uL (130-400); Red Cell Dist. Width 12.8 % (11.5-14.5)
[2025-05-07 07:42] LABS: Blood Urea Nitrogen 5 mg/dl (7-17); Calcium 8.2 mg/dl (8.4-10.2); Carbon Dioxide 24 mmol/L (22-30); Chloride 110 mmol/L (98-107); Estimated Creatinine Clearance 91 ml/min; Glucose 104 mg/dl (70-99); Potassium 3.4 mmol/L (3.5-5.1); Sodium 138 mmol/L (135-145); eGFR > 60.00
[2025-05-07 07:55] VITALS: BP 176/62
[2025-05-07] MEDS: LOW STRENGTH ASPIRIN 81 MG PO (08:05)
[2025-05-07] MEDS: VISBIOME 1 CAP PO (08:05)
[2025-05-07] MEDS: ZESTRIL 5 MG PO (08:05)
[2025-05-07] MEDS: HYDROCORTONE/CORTEF 20 MG PO (08:05)
[2025-05-07] MEDS: THERAGRAN 1 TABLET PO (08:05)
[2025-05-07] MEDS: PROTONIX 40 MG PO (08:06)
[2025-05-07] MEDS: NICODERM TRANSDERMAL 14 MG TRANSDERM (08:06)
[2025-05-07] MEDS: DESENEX/MITRAZOL/ZEASORB 1 APPLIC TOPICAL ×2 (08:13→20:53)
[2025-05-07] MEDS: D5/0.9% SODIUM CHLORIDE 1000 IV (08:14)
[2025-05-07] MEDS: KCL 40 MEQ PO (09:57)
[2025-05-07] MEDS: LASIX 20 MG PO (09:57)
[2025-05-07] MEDS: SOLU-CORTEF 50 MG IV ×3 (09:58→23:06)
[2025-05-07 10:00] VITALS: BP 140/60
[2025-05-07] MEDS: OSCAL CAL 500 500 MG PO (10:06)
--- NOTE | 2025-05-07 11:12 | W.PN.URO.CBU ---
Today's Communication / Plan
-
plan per hospitalist but urologically stable
Assessment / Plan
-
69F with hx of colovesical fistula s/p repair in 2022
Admitted with recurrent UTI and sepsis s/p recent admission for suspected left pyelonephritis 03/[address] showing possible developing R renal abscess
- Continue broad spec abx for complicated UTI
- E coli on urine and blood cx
- 2cm focal R pyelonephritis vs possible developing abscess on admission CT
- Follow up US 05/06 showed no visible fluid collection
- Recommend extended abx course - 14 days for complicated UTI
- If clinically worsening, reimage with CT and IR consult for abscess drainage if any present
- Recommend starting methenamine hippurate 1g BID after completing abx course for recurrent UTI
- Outpatient follow up after discharge
Diagnosis
-
Date of Service: May 07, 2025
-
Patient Diagnosis:
Post Op Day:
Patient Diagnosis:
Post Op Day:
Patient Diagnosis:
Recurrent UTI
R pyelonephritis, possible renal abscess
Post Op Day:
Subjective
-
getting better less colic no sweats fevr no abcess
Objective
-
Vital Signs
Temp Pulse Resp BP Pulse Ox
98.8 F 72 20 176/62 97
05/07/25 07:55 05/07/25 08:05 05/07/25 07:55 05/07/25 08:05 05/07/25 07:55
Intake and Output
05/06/25 05/07/25 05/08/25
06:59 06:59 06:59
Intake Total 496 / 496 1900 / 1900
Balance 496 / 496 1900 / 1900
Intake:
Oral fluids 240 / 240 1200 / 1200
IV fluids (Total) 600 / 600
IV piggybacks 256 / 256 100 / 100
Other:
Number of approximated SMALL 1
amounts of urine
Number of approximated MODERATE 3
amounts of urine
Number of approximated LARGE 2
amounts of urine
How many times incontinent 1
SMALL amount urine
How many times incontinent 3
SATURATED amount urine
Number of unmeasured liquid
stools
Rectum 3
Laboratory Results
05/07/25 05:42
05/07/25 05:42
Review of Systems
-
Constitutional: Fatigue and Sleep Disturbance
Physical Exam
-
General - well developed, well nourished, no acute distress
Chest - clear bilaterally
Abdomen - soft, non-tender, positive bowel sounds, no CVAT, no incisional pain or distention
Genitalia - normal
Rectal - normal
Skin - warm & dry with no rash
Neuro - AOx3, no motor deficits
Extremities - no clubbing, no cyanosis, no edema
Incision - clean, dry
Dressing - clean, dry, intact
Care Review
Data Reviewed
Discussed with: Nursing and Family
CT Scan: Image Pers Reviewed
Ultrasound: Image Pers Reviewed
--- NOTE | 2025-05-07 12:48 | W.PN.HOSP.TC ---
Today's Communication/Plan
-
Assessment / Plan
Assessment / Plan
General: No Apparent Distress, Comfortable and Conversant
HEENT: NormoCephalic, Moist mucous membranes, Atraumatic
Respiratory: Clear and Non Labored Respirations
Cardiac: S1/S2 and Regular Rhythm; No Rub or Gallop
GI: Soft, nontender, Non Distended and Normal Bowel Sounds
Musculoskeletal: No Edema, no deformity
Skin: Warm and dry
: NO Beltran
Neuro: Awake, Alert, Nonfocal/grossly intact
Psych: Calm and Intact Judgment/Insight
Ms. Newman is a 69-year-old female with a medical history of adrenal insufficiency, central hypothyroidism, severe aortic stenosis with moderate aortic regurgitation (currently pending surgical AV replacement), diverticulitis with colovesicular
fistula (status post sigmoidectomy and bladder repair 03/08/2023), nicotine dependence, hypertension, and recurrent UTI (recent admission for pyelonephritis) who presented with lethargy, body aches, and fevers. She also reports mild lower abdominal
pain and intermittent diarrhea over the past week. She was feeling generally well yesterday however did have an episode of diarrhea. This morning she felt achy and was experiencing chills. The patient and her report that her presenting
symptoms are consistent with prior UTIs.
In the ED, she was found to be febrile with a T of 102.4 �F, tachycardic with HR 105, and was normotensive. Her labs showed leukocytosis of 16,000 with a left shift. UA showed significant pyuria and bacteriuria. She was bolused a liter of
resuscitative fluids, cultures were obtained, and she was started on broad-spectrum antibiotics. She was admitted for further evaluation and management of sepsis secondary to UTI.
Sepsis secondary to UTI:
- Blood and urine cultures growing pansensitive E. coli, will switch antibiotics to Unasyn
- Today is day 4 of antibiotics, will continue with the prolonged course likely for 14 days total, urology recommends starting methenamine hippurate 1 g twice daily after antibiotic course
- CT imaging at time of admission showed right pyelonephritis with possibly developing abscess, also shows cystitis, does not show any evidence of recurrent colovesicular fistula
- Renal ultrasound 05/06 shows resolution of right pyelonephritis with no evidence of fluid collection, also shows a simple cyst in the left kidney
- Leukocytosis resolved, afebrile now more than 24 hours
- Will give an additional stress dose of IV hydrocortisone
Hypoglycemia:
- Suspect secondary to poor p.o. intake and adrenal insufficiency
- Will give an additional dose of stress dose hydrocortisone IV
- Hypoglycemic protocol in place
- Discontinued IV fluids with dextrose
Hypokalemia:
- Serum potassium 3.4 on labs this morning
- Repleted, will monitor
Hypocalcemia:
- Mild with serum calcium of 8.2 with normal albumin level
- Replete orally, monitor
Adrenal insufficiency:
- Continue home dose of hydrocortisone 20 mg p.o. daily
- Given stress dose of IV hydrocortisone 50 mg x 1 at time of admission, given a second dose today 05/07
Hypertension:
- Restarted home lisinopril 5 mg daily 05/05, restarted home Lasix 20 mg p.o. daily 05/07
- Monitor BP and adjust regimen as needed
Severe aortic stenosis:
- Recently worked up for possible TAVR, now plan has been for surgical aortic valve replacement next week which will need to be rescheduled
- Monitor BP, avoid hypotension
- Restarted home Lasix
Central hypothyroidism:
- Continue home thyroxine 75 mcg daily
Tobacco dependence:
- Nicotine patch provided
DVT prophylaxis: Subcu Lovenox
CODE STATUS: Full code
Total time spent on today's encounter was 40 minutes
Anticipated Discharge: 24 - 48 hours
Subjective/Interval History
-
Date of Service: May 07, 2025
Patient was seen and examined at bedside this morning. Feeling significant weakness and lack of appetite.
Objective Data
-
Labs:
Laboratory Results
05/07/25
05:42
WBC 8.0
Hgb 8.6 L
Hct 24.5 L
Plt Count 181
Sodium 138
Potassium 3.4 L
Chloride 110 H
Carbon Dioxide 24
BUN 5 L
Creatinine 0.6
Glucose 104 H
Calcium 8.2 L
Vital Signs:
Vital Signs
Temp Pulse Resp BP Pulse Ox
98.8 F 72 20 176/62 97
05/07/25 07:55 05/07/25 08:05 05/07/25 07:55 05/07/25 08:05 05/07/25 07:55
I&O
05/06/25 05/07/25 05/08/25
06:59 06:59 06:59
Intake Total 496 / 496 1899
Balance 496 / 496 1899
Review of Systems
-
History Source: Patient
All other systems: Reviewed and negative
Constitutional: Reports No Appetite, Fatigue and Weakness
Physical Exam
-
General: No Apparent Distress
[2025-05-07] MEDS: UNASYN IV ×2 (14:17→20:54)
[2025-05-07 15:55] VITALS: BP 114/70
[2025-05-07] MEDS: LOVENOX 40 MG SC (18:21)
[2025-05-07] MEDS: CRESTOR 5 MG PO (18:21)
[2025-05-07 23:47] VITALS: BP 162/56
[2025-05-08] MEDS: UNASYN IV ×2 (02:14→08:18)
[2025-05-08] MEDS: SYNTHROID 75 MCG PO (05:29)
[2025-05-08 07:53] VITALS: BP 141/110
[2025-05-08] MEDS: LASIX 20 MG PO (08:18)
[2025-05-08] MEDS: PROTONIX 40 MG PO (08:18)
[2025-05-08] MEDS: HYDROCORTONE/CORTEF 20 MG PO (08:18)
[2025-05-08] MEDS: THERAGRAN 1 TABLET PO (08:18)
[2025-05-08] MEDS: LOW STRENGTH ASPIRIN 81 MG PO (08:18)
[2025-05-08] MEDS: VISBIOME 1 CAP PO (08:19)
[2025-05-08] MEDS: ZESTRIL 5 MG PO (08:19)
[2025-05-08] MEDS: NICODERM TRANSDERMAL 14 MG TRANSDERM (08:20)
[2025-05-08] MEDS: DESENEX/MITRAZOL/ZEASORB 1 APPLIC TOPICAL (08:25)
--- NOTE | 2025-05-08 08:41 | W.PN.URO.CBU ---
Today's Communication / Plan
-
plan per hospitalist no gu intervention
Assessment / Plan
-
69F with hx of colovesical fistula s/p repair in 2022
Admitted with recurrent UTI and sepsis s/p recent admission for suspected left pyelonephritis 03/[address] showing possible developing R renal abscess
- Continue broad spec abx for complicated UTI
- E coli on urine and blood cx
- 2cm focal R pyelonephritis vs possible developing abscess on admission CT
- Follow up US 05/06 showed no visible fluid collection
- Recommend extended abx course - 14 days for complicated UTI
- If clinically worsening, reimage with CT and IR consult for abscess drainage if any present
- Recommend starting methenamine hippurate 1g BID after completing abx course for recurrent UTI
- Outpatient follow up after discharge
Diagnosis
-
Date of Service: May 08, 2025
-
Patient Diagnosis:uti bacteremia
Post Op Day:
Patient Diagnosis:
Post Op Day:
Patient Diagnosis:
Post Op Day:
Patient Diagnosis:
Recurrent UTI
R pyelonephritis, possible renal abscess
Post Op Day:
Subjective
-
much better
Objective
-
Vital Signs
Temp Pulse Resp BP Pulse Ox
98.3 F 70 16 141/110 96
05/08/25 07:53 05/08/25 08:18 05/08/25 07:53 05/08/25 08:18 05/08/25 07:53
Intake and Output
05/07/25 05/08/25 05/09/25
06:59 06:59 06:59
Intake Total 1900 / 1900 1320 / 1320
Output Total 1400 / 1400
Balance 1900 / 1900 -80 / -80
Intake:
Oral fluids 1200 / 1200 1320 / 1320
IV fluids (Total) 600 / 600
IV piggybacks 100 / 100
Output:
Urine, Voided 1400 / 1400
Other:
Number of approximated SMALL 1
amounts of urine
Number of approximated MODERATE 3 4
amounts of urine
Number of approximated LARGE 2
amounts of urine
Laboratory Results
05/07/25 05:42
05/07/25 05:42
Review of Systems
-
Constitutional: No Symptoms
Physical Exam
-
General - well developed, well nourished, no acute distress
Chest - clear bilaterally
Abdomen - soft, non-tender, positive bowel sounds, no CVAT, no incisional pain or distention
Genitalia - normal
Rectal - normal
Skin - warm & dry with no rash
Neuro - AOx3, no motor deficits
Extremities - no clubbing, no cyanosis, no edema
Incision - clean, dry
Dressing - clean, dry, intact
Care Review
Data Reviewed
Discussed with: Nursing
CT Scan: Image Pers Reviewed
--- NOTE | 2025-05-08 12:12 | W.DCSUMMARY ---
Discharge Summary
Discharge Data
Date of Admission: 05/04/25
Date of Discharge: 05/08/25
Total time spent discharging patient (in min): 45
-
Pending Results: No
Hospital Course
Ms. Newman is a 69-year-old female with a medical history of adrenal insufficiency, central hypothyroidism, severe aortic stenosis with moderate aortic regurgitation (currently pending surgical AV replacement), diverticulitis with colovesicular
fistula (status post sigmoidectomy and bladder repair 03/08/2023), nicotine dependence, hypertension, and recurrent UTI (recent admission for pyelonephritis) who presented with lethargy, body aches, and fevers. She also reported mild lower abdominal
pain and intermittent diarrhea over the past week. In the ED, she was found to be febrile with a T of 102.4 �F, tachycardic with HR 105, and was normotensive. Her labs showed leukocytosis of 16,000 with a left shift. UA showed significant pyuria
and bacteriuria. She was bolused a liter of resuscitative fluids, cultures were obtained, and she was started on broad-spectrum antibiotics. She was admitted for further evaluation and management of sepsis secondary to UTI.
CT imaging with IV and oral contrast showed right pyelonephritis with possible developing abscess and also showed cystitis, did not show evidence of recurrent colovesicular fistula. Repeat imaging of her kidneys 2 days later showed resolution of
right pyelonephritis with no evidence of abscess, did show a simple cyst in the left kidney. She was given a total of 2 stress doses of IV hydrocortisone 50 mg during this admission in addition to being continued on her home dose of hydrocortisone
20 mg p.o. daily. Her blood and urine cultures grew pansensitive E. coli. She was initially treated with IV Zosyn which was later switched to Unasyn after culture results were available. After 5 days of IV antibiotics she was clinically stable
for transition to oral Augmentin to complete a 14-day antibiotic course. She is encouraged to take her medications with good food. She may need her hydrocortisone dose adjusted while she continues to fight this infection. If she develops
significant weakness and fatigue she should contact her PCP regarding hydrocortisone dosage adjustments. She was evaluated by urology during this hospitalization who recommended starting methenamine hippurate 1 g twice daily after her antibiotic
course is complete noted to prevent further recurrences of urinary tract infection. She was afebrile for over 48 hours at time of hospital discharge. She will need close follow-up with her primary care physician and with her cardiothoracic surgery
team.
General: No Apparent Distress, Comfortable and Conversant
HEENT: NormoCephalic, Moist mucous membranes, Atraumatic
Respiratory: Clear and Non Labored Respirations
Cardiac: S1/S2 and Regular Rhythm; 3/6 systolic murmur
GI: Soft, nontender, Non Distended and Normal Bowel Sounds
Musculoskeletal: No Edema, no deformity
Skin: Warm and dry
: NO Beltran
Neuro: Awake, Alert, Nonfocal/grossly intact
Psych: Calm and Intact Judgment/Insight
Discharge Plan
-
Patient Disposition: Home (Routine Discharge)
Discharge Diagnosis/Procedures: Sepsis secondary to E. coli UTI with right pyelonephritis and bacteremia
Activity Restrictions/Additional Instructions:
Ms. Newman is a 69-year-old female with a medical history of adrenal insufficiency, central hypothyroidism, severe aortic stenosis with moderate aortic regurgitation (currently pending surgical AV replacement), diverticulitis with colovesicular
fistula (status post sigmoidectomy and bladder repair 03/08/2023), nicotine dependence, hypertension, and recurrent UTI (recent admission for pyelonephritis) who presented with lethargy, body aches, and fevers. She also reported mild lower abdominal
pain and intermittent diarrhea over the past week. In the ED, she was found to be febrile with a T of 102.4 �F, tachycardic with HR 105, and was normotensive. Her labs showed leukocytosis of 16,000 with a left shift. UA showed significant pyuria
and bacteriuria. She was bolused a liter of resuscitative fluids, cultures were obtained, and she was started on broad-spectrum antibiotics. She was admitted for further evaluation and management of sepsis secondary to UTI.
CT imaging with IV and oral contrast showed right pyelonephritis with possible developing abscess and also showed cystitis, did not show evidence of recurrent colovesicular fistula. Repeat imaging of her kidneys 2 days later showed resolution of
right pyelonephritis with no evidence of abscess, did show a simple cyst in the left kidney. She was given a total of 2 stress doses of IV hydrocortisone 50 mg during this admission in addition to being continued on her home dose of hydrocortisone
20 mg p.o. daily. Her blood and urine cultures grew pansensitive E. coli. She was initially treated with IV Zosyn which was later switched to Unasyn after culture results were available. After 5 days of IV antibiotics she was clinically stable
for transition to oral Augmentin to complete a 14-day antibiotic course. She is encouraged to take her medications with good food. She may need her hydrocortisone dose adjusted while she continues to fight this infection. If she develops
significant weakness and fatigue she should contact her PCP regarding hydrocortisone dosage adjustments. She was evaluated by urology during this hospitalization who recommended starting methenamine hippurate 1 g twice daily after her antibiotic
course is complete noted to prevent further recurrences of urinary tract infection. She was afebrile for over 48 hours at time of hospital discharge. She will need close follow-up with her primary care physician and with her cardiothoracic surgery
team.
Referrals:
Kavitha Escalera MD [Family Provider, [facility]]
Prescriptions:
New
amoxicillin-pot clavulanate 875-125 mg tablet
1 tab PO BID 9 Days Qty: 18 0RF
methenamine hippurate 1 gram tablet
1 g PO BID Qty: 30 0RF
Rx Instructions:
Start this medication on 05/17 after completing your antibiotic course
Continued
furosemide 20 mg Tablet
20 mg PO DAILY
hydrocortisone 10 mg Tablet
20 mg PO DAILY
rosuvastatin [Crestor] 5 mg Tablet
5 mg PO QPM
levothyroxine [Synthroid] 75 mcg Tablet
75 mcg PO DAILY
nicotine 14 mg/24 hr patch 24 hour
14 mg transdermal DAILY
Visbiome 112.5 billion cell Capsule
1 cap PO DAILY Qty: 0
therapeutic multivitamin Tablet
1 tab PO DAILY
pantoprazole 40 mg tablet,delayed release (DR/EC)
40 mg PO DAILY
aspirin 81 mg tablet,chewable
81 mg PO DAILY
lisinopril 5 mg tablet
5 mg PO DAILY
Discharge Orders:
Discharge Patient (As Directed); Ordered 05/08/25
Ordered By: Carlos Guevara
Discharge Date and Time
Print Language: TELUGU
[2025-05-08 13:01] VITALS: BP 149/51
--- NOTE | 2025-05-08 13:13 | CM ---
MD entered order for discharge.
Spoke with pt in room .
She said she was ready for discharge today .
Her Bill will drive her home.
IMM reviewed .IMM signed on chart
Offered VN she declined need.
PLAN Home no needs
== END 2025-05-08 14:19 | disposition home or self-care (01) | DRG 872 ==
LOC: 4 EAST ACU 12:00
PROVIDERS: Registered Nurse; ADMITTING PHYSICIAN Internal Medicine; CONSULT PHYSICIAN Urology; EMERGENCY PHYSICIAN Emergency Medicine; FAMILY PHYSICIAN Family Medicine
DX: A41.51 Sepsis due to Escherichia coli [E. coli] (principal); N12 Tubulo-interstitial nephritis, not specified as acute or chronic; E27.40 Unspecified adrenocortical insufficiency; F17.200 Nicotine dependence, unspecified, uncomplicated; Z87.440 Personal history of urinary (tract) infections; I10 Essential (primary) hypertension; E03.8 Other specified hypothyroidism; I35.0 Nonrheumatic aortic (valve) stenosis; E87.6 Hypokalemia
CPT/HCPCS: 74177; 76775; 80048; 80053; 81003; 81015; 82962; 83605; 83735; 85025; 85610; 85730; 87040; 87077; 87086; 87154; 87186; 87205; 96365; 96366; 96367; 97162; 97166; 99285; Q9967

== ENCOUNTER 2025-05-27 05:04 | Inpatient (IN) | payer MEDICARE, SELFPAY ==
[2025-05-24 12:02] VITALS: BMI 31.4
[2025-05-24 12:41] LABS: Urine Character Clear (Clear)
[2025-05-24 12:51] LABS: Hematocrit 31.5 % (37.0-47.0); Hemoglobin 10.5 g/dL (12.0-16.0); Mean Corp Hgb Conc. 33.3 g/dL (33.0-37.0); Mean Corpuscular Volume 102.9 fL (81.0-99.0); Nucleated Red Blood Cells % 0 %; Platelet Count 311 10^3/uL (130-400); Red Cell Dist. Width 14.0 % (11.5-14.5)
[2025-05-24 12:58] LABS: INR 0.99; PT 13.4 Sec (11.4-14.6)
[2025-05-24 13:03] LABS: ALT (SGPT) 18 U/L (0-35); AST (SGOT) 18 U/L (14-36); Albumin 4.2 g/dl (3.5-5.0); Alkaline Phosphatase 71 U/L (38-126); Blood Urea Nitrogen 15 mg/dl (7-17); Calcium 9.4 mg/dl (8.4-10.2); Carbon Dioxide 29 mmol/L (22-30); Chloride 103 mmol/L (98-107); Estimated Creatinine Clearance 90 ml/min; Glucose 181 mg/dl (70-99); Potassium 4.8 mmol/L (3.5-5.1); Sodium 138 mmol/L (135-145); Total Protein 7.1 g/dl (6.3-8.2); eGFR > 60.00
[2025-05-24 13:33] LABS: Glycohemoglobin (HgbA1c) 7.1 % (4.0-5.6)
--- NOTE | 2025-05-24 14:43 | CM ---
CM following for DC planning needs.
Met w/ patient + spouse during PATs for planned AVR.
Pt. resides w/ spouse in a private, 2 STH w/ 2 SHAR. Functionally, patient is indep. at baseline w/ ADLs, mobility. Pt. has a RW and SPC in the home, which she does not use.
Pt. has prescription plan and uses [facility] in [place] for RX needs.
Reviewed pre and post op routines.
Soap, shower instructions and Cardiac Sx booklet provided.
We discussed post op restrictions to include lifting, driving, flying and sternal precautions.
We reviewed post op MD appointments, Cardiac Rehab, and visit from CT Transitional Care RN; patient aware/ agreeable.
Plan is for CT Surgery 05/27.
Anticipated DC plan is for home with CT Transitional Care RN.
CM to follow.
[2025-05-27] VITALS (20 sets, daily range): BP systolic 74–150; BP diastolic 47–77; BMI 30.6
[2025-05-27] MEDS: MAGNESIUM OXIDE 500 MG PO (05:26)
[2025-05-27] MEDS: LOPRESSOR 25 MG PO (05:26)
[2025-05-27] MEDS: PROTONIX 40 MG PO (05:26)
[2025-05-27] MEDS: BACTROBAN 2% OINTMENT 1 APPLIC NASAL ×2 (05:26→19:59)
--- NOTE | 2025-05-27 05:48 | PTCARENOTE ---
Patient admitted to CVICU. Admission questions asked. Patient confirmed 2 CHG baths. Med reconciliation completed. Patient clipped and washed w/ CHG cloths. Medications administered. Questions answered. Awaiting CVOR.
--- NOTE | 2025-05-27 06:13 | W.CVOR.SURPR ---
CVOR Surgeon Immed Pre Op
-
I have examined this patient prior to performance of the scheduled procedure.
The patient's condition is unchanged from the time of the dictated/written History and
Physical and the patient is able to undergo the scheduled procedure.
AVR (either root enlargment vs freestyle root replacement) + KAYLA clip
[2025-05-27 07:36] LABS: ACT+ - POC 112 Seconds (82-134)
[2025-05-27 07:52] LABS: Urine Character Clear (Clear)
[2025-05-27 07:54] LABS: B.E. - POC 3.0 mmol/L; Glucose - POC 130 mg/dl (70-99); HCO3 - POC 28 mmol/L (21-28); Hematocrit - POC 28 % PCV (37-47); Hemodilution- POC No; Hemoglobin Calculated - POC 9.4; Ionized Calcium - POC 1.19 mmol/L (1.15-1.33); Lactate - POC 0.98 mmol/L (0.36-0.75); O2 Saturation %Calculated-POC 99.8 % (94-98); PCO2 - POC 45 mmHg (35-48); PO2 - POC 241 mmHg (83-108); Potassium - POC 3.8 mmol/L (3.5-5.1); Sodium - POC 142 mmol/L (136-145); Specimen Type - POC Arterial; pH - POC 7.40 (7.35-7.45)
[2025-05-27 08:22] LABS: ACT+ - POC 578 Seconds (82-134)
[2025-05-27 08:35] LABS: ACT+ - POC 508 Seconds (82-134)
[2025-05-27 08:51] LABS: B.E. - POC 8.2 mmol/L; Glucose - POC 111 mg/dl (70-99); HCO3 - POC 32 mmol/L (21-28); Hematocrit - POC 31 % PCV (37-47); Hemodilution- POC Yes; Hemoglobin Calculated - POC 10.5; Ionized Calcium - POC 0.96 mmol/L (1.15-1.33); Lactate - POC 0.56 mmol/L (0.36-0.75); O2 Saturation %Calculated-POC 100.0 % (94-98); PCO2 - POC 41 mmHg (35-48); PO2 - POC 445 mmHg (83-108); POC Comment CPB; Potassium - POC 3.5 mmol/L (3.5-5.1); Sodium - POC 141 mmol/L (136-145); Specimen Type - POC Arterial; pH - POC 7.51 (7.35-7.45)
[2025-05-27 09:00] LABS: ACT+ - POC 545 Seconds (82-134)
--- NOTE | 2025-05-27 09:24 | CM ---
Patient in OR today for planned AVR.
Reviewed initial assessment. Pt. resides w/ spouse in a private, 2 ST w/ 2 SHAR. Functionally, patient is indep. at baseline w/ ADLs, mobility.
Antic. DC plan is for home w/ CT Transitional Care RN.
CM to follow.
[2025-05-27 09:25] LABS: B.E. - POC 6.0 mmol/L; Glucose - POC 112 mg/dl (70-99); HCO3 - POC 30 mmol/L (21-28); Hematocrit - POC 23 % PCV (37-47); Hemodilution- POC Yes; Hemoglobin Calculated - POC 7.8; Ionized Calcium - POC 0.99 mmol/L (1.15-1.33); Lactate - POC 1.33 mmol/L (0.36-0.75); O2 Saturation %Calculated-POC 100.0 % (94-98); PCO2 - POC 37 mmHg (35-48); PO2 - POC 419 mmHg (83-108); POC Comment CPB; Potassium - POC 4.0 mmol/L (3.5-5.1); Sodium - POC 142 mmol/L (136-145); Specimen Type - POC Arterial; pH - POC 7.51 (7.35-7.45)
[2025-05-27 09:31] LABS: ACT+ - POC 498 Seconds (82-134)
[2025-05-27 09:43] LABS: ACT+ - POC 546 Seconds (82-134)
[2025-05-27 09:55] LABS: B.E. - POC 5.6 mmol/L; Glucose - POC 115 mg/dl (70-99); HCO3 - POC 29 mmol/L (21-28); Hematocrit - POC 23 % PCV (37-47); Hemodilution- POC Yes; Hemoglobin Calculated - POC 8.0; Ionized Calcium - POC 1.03 mmol/L (1.15-1.33); Lactate - POC 2.19 mmol/L (0.36-0.75); O2 Saturation %Calculated-POC 99.9 % (94-98); PCO2 - POC 35 mmHg (35-48); PO2 - POC 269 mmHg (83-108); POC Comment CPB; Potassium - POC 3.9 mmol/L (3.5-5.1); Sodium - POC 142 mmol/L (136-145); Specimen Type - POC Arterial; pH - POC 7.52 (7.35-7.45)
[2025-05-27 10:03] LABS: ACT+ - POC 527 Seconds (82-134)
[2025-05-27 10:18] LABS: B.E. - POC 5.4 mmol/L; Glucose - POC 133 mg/dl (70-99); HCO3 - POC 29 mmol/L (21-28); Hematocrit - POC 23 % PCV (37-47); Hemodilution- POC Yes; Hemoglobin Calculated - POC 7.7; Ionized Calcium - POC 1.04 mmol/L (1.15-1.33); Lactate - POC 2.72 mmol/L (0.36-0.75); O2 Saturation %Calculated-POC 99.9 % (94-98); PCO2 - POC 40 mmHg (35-48); PO2 - POC 270 mmHg (83-108); POC Comment WARM; Potassium - POC 3.8 mmol/L (3.5-5.1); Sodium - POC 140 mmol/L (136-145); Specimen Type - POC Arterial; pH - POC 7.48 (7.35-7.45)
[2025-05-27 10:24] LABS: ACT+ - POC 446 Seconds (82-134)
[2025-05-27 10:39] LABS: B.E. - POC 0.7 mmol/L; Glucose - POC 168 mg/dl (70-99); HCO3 - POC 25 mmol/L (21-28); Hematocrit - POC 35 % PCV (37-47); Hemodilution- POC Yes; Hemoglobin Calculated - POC 11.8; Ionized Calcium - POC 0.99 mmol/L (1.15-1.33); Lactate - POC 4.21 mmol/L (0.36-0.75); O2 Saturation %Calculated-POC 100.0 % (94-98); PCO2 - POC 36 mmHg (35-48); PO2 - POC 361 mmHg (83-108); POC Comment WARM; Potassium - POC 4.3 mmol/L (3.5-5.1); Sodium - POC 143 mmol/L (136-145); Specimen Type - POC Arterial; pH - POC 7.44 (7.35-7.45)
[2025-05-27 10:42] LABS: ACT+ - POC 115 Seconds (82-134)
--- NOTE | 2025-05-27 11:01 | CON.INTV ---
Consultation
Consultation Request
Date/Time Consultation Requested: 05/27/2025 - 1042
Date/Time Consultation Performed: 05/27/2025 - 1054
Requesting Provider: Carey Levine PA-C
Performing Provider: Dr. Hernández
Reason for Consultation: s/p AVR
Medical History
-
Chief Complaint: Elective SAVR
History of Present Illness:
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
Rathke's cleft cyst, history of recurrent UTI, colovesicular fistula, perirectal abscess and chronic lower extremity edema who presents with elective aortic valve replacement + aortic root dilation. Patient known to the cardiothoracic surgery
service, last visit 05/24/[address] Ponce. Recent echo on 03/09/2025 showed severe aortic stenosis with moderate AI, with peak gradient of 77 mmHg, and mean gradient 42 mmHg, with PRADEEP 0.7 cm�. Left + right heart cath on 03/26/2025 showed
nonobstructive CAD with mildly elevated LV filling pressures, with mild postcapillary pulm hypertension with PCWP 20, TP, and CO/CI: 6.59/3.51, respectively, with PVR 1.5 Wood units. Mean gradient across AV was 44.87 mmHg with a valve area of
0.97 cm�. She was previously supposed to get aortic valve replacement via Dr. Ponce earlier this month, however this was postponed due to recent hospitalization here at from 05/04 - 05/08 for urosepsis (UCx on 05/04/2025 grew pansensitive E. coli).
Today, patient underwent surgical aortic valve replacement with 25 mm bioprosthesis and aortic root enlargement using bovine pericardial patch. There were no immediate complications, and patient was transferred to the CVICU postoperatively for
further care. Research And Development Technician services consulted for additional management/recommendations.
When I saw the patient, she was intubated on SIMV at 18/450/40%/5, with PIP 23 cmH2O, VTe 385 cc and breathing at 18 breaths/min. Heart rate 72, BP via A-line 113/49, PAP 27/11, CO/CI: 4.3/2.31, respectively, and SpO2: 97%. Currently on Cardene
drip at 5 mg/hr, insulin drip at 3 units/hr, and sedated with Precedex at 0.3 mcg/kg/hr. Mediastinal chest tubes x [address]
PMHx: Hypertension, hyperlipidemia, DM type II, former tobacco smoker (28-vctn-nurd history, quit 03/2025), macrocytosis, multinodular goiter, central hypothyroidism due to pituitary disorder, valvular heart disease with aortic stenosis + AI, history
of hyponatremia associated with adrenal insufficiency, Rathke's cleft cyst, history of UTI, colovesical fistula, history of perirectal abscess, chronic lower extremity edema
PSHx: Pilonidal cyst excision, sigmoidectomy and takedown of vesicle�colonic fistula (03/07/2023)
Past Medical History
Past Medical History: Other (Above as per HPI)
Past Surgical History: Other (Above as per HPI)
Social History
Tobacco: Former Smoker (He has quit many times in the past, smoked between 0.5-1 PPD starting at age 18, finally quit 03/2025)
Alcohol: Former (Drink 1 bottle of wine nightly until September 2024 hospitalization)
Drug: None
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
Family History
Family History: Cancer (Father: Lung cancer; mother: Hepatic cancer; Sister: Pancreatic, hepatic and thyroid cancers), Diabetes (Father + mother) and Other (Son: Drug addiction)
Allergies / Home Medications
Allergies
Allergy/AdvReac Type Severity Reaction Status Date / Time
No Known Allergies Allergy Verified 05/20/25 14:45
Home Medications
�Medication �Instructions �Recorded �Confirmed �Last Taken �Type
furosemide 20 mg tablet 20 mg PO DAILY Fluid 03/04/23 05/27/25 05/25/25 08:00 History
retention/Swelling
hydrocortisone 10 mg tablet 20 mg PO DAILY Anti-inflammatory 03/04/23 05/27/25 05/26/25 08:00 History
rosuvastatin 5 mg tablet (Crestor) 5 mg PO QPM High Cholesterol 09/12/24 05/27/25 05/26/25 19:00 History
levothyroxine 75 mcg tablet 75 mcg PO DAILY Thyroid 09/17/24 05/27/25 05/26/25 08:00 History
(Synthroid)
nicotine 14 mg/24 hr daily 14 mg transdermal DAILY Smoking 12/08/24 05/27/25 05/26/25 08:00 History
transdermal patch Cessation
Lactobac no.2-Bifidobac no.1-S. 1 cap PO DAILY Supplement ##0 03/21/25 05/27/25 05/26/25 08:00 History
thermo 112.5 billion cell capsule
(Visbiome)
aspirin 81 mg chewable tablet 81 mg PO DAILY Heart 05/04/25 05/27/25 05/26/25 19:00 History
Disease/Condition
lisinopril 5 mg tablet 5 mg PO DAILY Blood Pressure 05/04/25 05/27/25 05/25/25 08:00 History
pantoprazole 40 mg tablet,delayed 40 mg PO DAILY Gastrointestinal 05/04/25 05/27/25 05/26/25 08:00 History
release Issue
methenamine hippurate 1 gram tablet 1 g PO BID #30 tabs 05/08/25 05/27/25 05/26/25 19:00 Rx
Review of Systems
-
Unable to Obtain full review of systems at this time due to: Patient Intubation
Vitals / Labs / Diagnostic Testing
Vital Signs
BP
144/60
05/27/25 05:26
Microbiology
05/24/25 12:11 Nose MRSA Screen - Final
No Methicillin Resistant Staphylococcus aureus isolated.
Diagnostic Testing:
Physical Exam
-
HEENT: Normocephalic, Anicteric and Other (ETT in place)
Cardiovascular: S1/S2 and Peripheral Edema (negative)
Respiratory: Wheeze (negative), Rales (negative), Rhonchi (negative), Non-Labored Respirations, Other (Mechanical breath sounds heard bilaterally) and Other (Mediastinal chest tubes x 2)
GI: Soft, Non Distended, Non Tender and Normal Bowel Sounds
Neurology: Tremors (negative) and Other (Sedated)
Skin: Warm and Dry
General: Respiratory Distress (negative), Comfortable, Chills (negative) and Sweats (negative)
Assessment
-
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
insufficiency, Rathke's cleft cyst, history of recurrent UTI, colovesicular fistula, perirectal abscess and chronic lower extremity edema who presents with elective aortic valve replacement + aortic root dilation. Patient known to the
cardiothoracic surgery service, last visit 05/24/[address] Ponce. Recent echo on 03/09/2025 showed severe aortic stenosis with moderate AI, with peak gradient of 77 mmHg, and mean gradient 42 mmHg, with PRADEEP 0.7 cm�. Left + right heart cath on
03/26/2025 showed nonobstructive CAD with mildly elevated LV filling pressures, with mild postcapillary pulm hypertension with PCWP 20, TP, and CO/CI: 6.59/3.51, respectively, with PVR 1.5 Wood units. Mean gradient across AV was 44.87 mmHg with
a valve area of 0.97 cm�. She was previously supposed to get aortic valve replacement via Dr. Ponce earlier this month, however this was postponed due to recent hospitalization here at from 05/04 - 05/08 for urosepsis (UCx on 05/04/2025 grew
pansensitive E. coli). On 05/27/2025, patient underwent surgical aortic valve replacement with 25 mm bioprosthesis and aortic root enlargement using bovine pericardial patch. There were no immediate complications, and patient was transferred to the
CVICU postoperatively for further care. Research And Development Technician services consulted for additional management/recommendations.
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
stenosis + AI, history of hyponatremia associated with adrenal insufficiency, Rathke's cleft cyst, history of UTI, colovesical fistula, history of perirectal abscess, chronic lower extremity edema
Impression:
#Severe aortic valve stenosis with small annulus s/p surgical aortic valve replacement with 25 mm bioprosthesis (POD #0)
#Aortic valve enlargement using bovine pericardial patch (POD #0)
#Chronic anemia
#Hypocalcemia
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
#History of adrenal insufficiency with hyponatremia
#Hypertension/hyperlipidemia
#DM type II
#Chronic HFpEF
#History of UTI
Plan:
Ventilator settings reviewed
FiO2 will be weaned to maintain SpO2 >90-94%
Minute ventilation will be adjusted
Arterial blood gases will be monitored
Spontaneous breathing trial will be attempted with hopeful extubation after anesthesia/sedation wear off
prn nebulized bronchodilators - not currently bronchospastic
Pulmonary artery catheter parameters will be followed
Pressors/antihypertensive/inotropes/diuretics will be provided as needed
Maintain MAP>65
Replete electrolytes with K>4, Mg>2
Monitor chest tube output (mediastinal chest tubes x 2)
Monitor hemoglobin
Monitor platelet count and coags
Transfuse blood products as needed to maintain Hb>7g/dL, plt>50k (given post-operative status)
CT surgery managing chest tubes
Monitor blood sugar to maintain euglycemia with goal BG 110-140
Insulin drip per protocol
Given her significant tobacco smoking history, she does qualify for annual LDCT chest for lung cancer screening purposes.
- Her recent CTA chest with/without contrast on 03/23/2025 did show paraseptal emphysema predominantly in the right upper lobe with evidence of interlobular septal thickening likely due to left-sided heart failure in addition to small bilateral
pleural effusions. There was no significant nodule or mass seen on that imaging study.
- Would recommend her to continue getting annual LDCT chest imaging, next would not be due until March 2026; either her PCP can continue ordering this or she is more than welcome to follow-up with me in the Pulmonary office
Aspiration precautions
VAP prevention protocol
DVT prophylaxis
Early nutrition
Early mobilization
Critical care statement: A total of 41 minutes of critical care time was provided for this patient today. This includes management of ventilator, spontaneous breathing trial, arterial blood gases, pressors, of unstable vital signs, evaluation of the
patient at bedside, reviewing the patient's pertinent medical records including radiographs, microbiology, laboratory evaluations, and discussion with primary team and critical care nursing.
[2025-05-27 11:15] LABS: B.E. - POC 0.3 mmol/L; Glucose - POC 148 mg/dl (70-99); HCO3 - POC 25 mmol/L (21-28); Hematocrit - POC 23 % PCV (37-47); Hemodilution- POC Yes; Hemoglobin Calculated - POC 7.7; Ionized Calcium - POC 1.14 mmol/L (1.15-1.33); Lactate - POC 3.46 mmol/L (0.36-0.75); O2 Saturation %Calculated-POC 100.0 % (94-98); PCO2 - POC 38 mmHg (35-48); PO2 - POC 378 mmHg (83-108); POC Comment POST; Potassium - POC 3.6 mmol/L (3.5-5.1); Sodium - POC 144 mmol/L (136-145); Specimen Type - POC Arterial; pH - POC 7.42 (7.35-7.45)
--- NOTE | 2025-05-27 11:21 | W.PN.CT.SURG ---
CT Surgery Operative Note
-
CARDIAC SURGERY OPERATIVE REPORT
Preoperative Diagnosis: Aortic valve stenosis with small annulus
Postoperative Diagnosis: Same
Procedure(s) Performed:
1. Standard sternotomy with aortic and right atrial cannulation
2. Surgical aortic valve replacement [25 mm bioprosthesis]
3. Aortic root enlargement using bovine pericardial patch [[employer]ian Technique]
4. Placement temporary ventricular pacing wires
5. Transesophageal echocardiography
Date of Surgery: 05/27/2025
Comorbidities:
1. Severe aortic valve stenosis, symptomatic
2. Pyelonephritis
3. 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
4. Adrenal insufficiency
5. Hypertension
6. Hyperlipidemia
7. Diabetic with HbA1c of 7
8. Chronic diastolic heart failure with moderate degree of left ventricular hypertrophy
Attending Surgeon: Calderon Ponce MD, MS
Assistants: Glenis Camacho PA-C (present and necessary to certified surgical tech/first assistant, retraction, suction, exposure, suture management, and wound closure under my direction)
Anesthesiology: Jean Marie Pratt MD and Sonia Allen CRNA
Scrub and Circulating RNs: Seda Godinez, MAX, Esdras Resendiz RN
[place]ound[place] Monitoring Technician: Molly Turner CCP
Anesthesia: GETA
EBL: per perfusion records
Products: 2 prbcs 2 plts
CPB Time: 118 minutes
Aortic Cross Clamp Time: 90 minutes
Indication(s) for Procedures: This is a 69-year-old female who was initially referred for TAVR. She has severe aortic valve stenosis has become symptomatic over the last several months. As part of her workup she had a TAVR CT scan which
demonstrated a small annulus. She also had poor peripheral access and so multidisciplinary discussion was to refer her back to surgery for surgical aortic valve replacement as part of her lifetime management. I offered her AVR as well as a root
enlargement possible root replacement in order to match her geometric orifice.
Aortic Valve Description: Heavily calcified valve trileaflet, left coronary ostium was heavily calcified circumferentially at the sinus.
Findings: Her left ventricular ejection fraction preoperatively was 60 to 65%. Following surgery EF remained the same at 60% with no new regional wall motion abnormalities. She had a moderate degree of left ventricular hypertrophy. RV was normal
in size and function. I cut down through the noncoronary sinus after freeing off the dome of the left atrium from the posterior wall of the aortic root. I offered to do it this way given that she had a significant degree of calcification along the
left none commissure and the ostia surrounding sinus of the left main was heavily calcified. This would have made it unsafe to reimplant the coronary as part of her freestyle root replacement. A large bovine pericardial patch was then fashioned
into a teardrop shape. I sutured the apex down towards the apex of the root enlargement which cut down onto the anterior leaflet of the mitral valve. I then ran 4-0 Prolene up on each side and tacked it with additional 4-0 Prolene sutures. A
total of fifteen 2 Ethibond sutures were used to secure the new valve into place. Along the patch I went from outside in with pledgeted sutures and then hand tied them there. The rest were secured with core knots. A total of 5 pledgeted sutures
were used. The patch was then brought up along the lateral anterior surface of the aorta and incorporated into the aortotomy closure. At the conclusion of the case there was no paravalvular leak, and the mean gradient across the valve was 5 mmHg.
The left ventricular function was normal and there is no systolic anterior motion of the mitral valve leaflets. She did not require inotropic support coming off cardiopulmonary bypass there was a short period which she was VVI pacing and when she
regained her sinus rhythm she asked required antihypertensive medication such as Cardene. 2 units of packed cells were given her as she was hemodiluted on pump and 2 units of platelets were given to her preemptively given the patch and some
wheeziness along the suture line.
Specimen(s): Aortic valve leaflets.
Prosthesis:
1. 25 mm Vasquez Inspiriss Resilia aortic valve, serial #[id number]
2. Bovine pericardial patch, serial number XP [id number]
Description of Procedure: The patient was taken to the operating room. Their identity and procedure to be performed were verified and they were positioned supine on the operating table. Induction via general anesthesia with endotracheal intubation
was performed and central venous access and arterial monitoring were inserted. A preoperative transesophageal echocardiogram was performed to assess cardiac function and valvular function. The patient was then prepped and draped from chin to feet in
a sterile fashion. A preoperative time-out was performed with all members of the team present. A midline chest incision was performed along with median sternotomy. The innominate vein was isolated. Full heparinization was given (a total of 48,000
units). We created a pericardial well. The aortic cannulation site was chosen where it was soft, pliable, and free of calcium. Cannulation was performed with an arterial cannula in the ascending aorta and a triple-stage venous cannula through the
right atrial appendage. The arterial cannula line had an appropriate bounce and correlating pressures with test dosing. Next, a root vent/antegrade cannula was inserted into the ascending aorta. The ACT was confirmed to be over 400 and retrograde
autologous priming was performed before commencing cardiopulmonary bypass. The pulmonary artery was away from the aorta to facilitate a clamp site and aortotomy. A left ventricular vent was placed at the right superior pulmonary vein and
secured. The aortic cross-clamp was placed after decreasing the flow on the bypass and mean arterial pressure. A total of 1.2L initial dose of antegrade Del-Nido cardioplegia solution was given and planned for re-dosing every 75 minutes as
necessary. There was rapid electro-mechanical arrest of the heart at 400-500 cc of cardioplegia. The left ventricle was observed for distention on echocardiogram and manual palpation. Cold slush was placed into a sponge and topically on the RV while
we systemically cooled to 34 degrees centigrade.
Carbon dioxide was used to flood the field. We manually identified the location of the right coronary take off. An aortotomy was made approximately 2cm above the sinotubular junction. The location of both left and right coronary vessels were
visualized in the root.I then continued the incision down towards the noncoronary cusp across the sinotubular junction. The dome the left atrium was mobilized off the posterior aspect of the aortic root. The leaflets were excised and sent for
pathological assessment. The annulus was debrided of any calcium being mindful of the annulus and membranous septum. The root and left ventricular outflow tract were thoroughly irrigated to remove any debris. I then carried the incision down across
the aortic valve annulus onto the aorto mitral curtain. A total of 10 Non-pledgeted and 5 pledgeted 2-0 ethibond inverted annular sutures were placed [id number] circumferentially, along the patch I went from outside in. These were brought
through the sewing cuff of the prosthetic valve which as then parachuted into place. The left and right coronary ostia were visualized and were unobstructed by the valve. A Cor-Knot device was used to secure the annular sutures and the sutures along
the patch were hand tied. The valve was inspected and was well seated. The aortotomy was approximated with 4-0 prolene in two layers. De-airing maneuvers were performed and temporary bipolar ventricular pacing wires were placed on the base of the
right ventricle. The patient was placed in a Trendelenburg position and flows on bypass were lowered. The aortic cross clamp was removed and flows were slowly brought back up. The aortotomy appeared hemostatic. Transesophageal echocardiography
revealed no paravalvular leak and appropriate prosthetic function. Once de-airing was satisfactory, the left ventricular and root vents were removed. After verifying acceptable parameters, we initiated weaning from cardiopulmonary bypass. Once we
were off cardiopulmonary bypass, the venous cannula was clamped and removed. A test dose of protamine was administered and the patient was monitored for any adverse reaction before resuming protamine. Once half of the protamine dose was delivered,
pump suckers were turned off and the systolic blood pressure was lowered for aortic decannulation. The aortic cannula was removed and pursestrings were tied down. All cannulation sites were oversewn with a 4-0 prolene. The aortotomy suture line was
inspected and hemostasis was confirmed. Mediastinal hemostasis was obtained. Two 24Fr Jacoby drains were placed within the pericardium. The sternum was approximated with 4#7 single and 3 #8 double stainless steel wires. Fascia was approximated with
#1 vicryl suture. The subcutaneous, dermis and epidermis were closed in layers in a running fashion. The skin wound was cleansed and dressed.
All instrument, sponge, and needle counts were confirmed to be correct x 2 at the end of the operation. The patient was transferred to the cardiac intensive care unit in critical but stable condition.
I, Dr. Calderon Ponce, was present, scrubbed for, and performed all critical elements of this procedure.
Calderon Ponce MD, MS
Cardiothoracic Surgeon
[facility]
This operative dictation was created using the [employer] dictation system. Please excuse any grammatical, typographical, or 'sound alike' errors
[2025-05-27 11:48] LABS: Glucose - Point of Care 143 mg/dl (70-99)
[2025-05-27 11:59] LABS: B.E. 1.0 mmol/L; HCO3 26.6 mmol/L (21-28); O2 Saturation % 98.9 % (94-98); PCO2 46 mmHg (32-35); PO2 93 mmHg (83-108); Potassium 3.4 mMOL/L (3.5-5.1); Sodium 139 mMOL/L (136-145)
--- NOTE | 2025-05-27 11:59 | PTCARENOTE ---
Received pt form [facility]; pt intubated and sedated; Pupils 2mm and reactive; NSR RBBB on monitor and VSS; Epicardial V wire in place not hooked to box due to inappropriately pacing Dr Ponce at bedside; Narinder Hale floated to 44, Left A-line and PIV
x1 patent; Cardene, Insulin and Precedex infusing see flow sheet for details; lungs diminished; CT x2 to -20 wall suction no air leak and no crepitus noted; ETT 8 22 @ lip; vent settings SIMV 450/5/14/40%; hypoactive bowel sound; Beltran catheter
draining clear yellow urine; palpable pulses throughout; no edema noted; all surgical sites C/D/I; see nursing documentation for further details.
CI 2.31
CO 4.30
SVR 1023
--- NOTE | 2025-05-27 12:00 | W.PN.UPDATE ---
Update Note
Progress Note Update
69-year-old female with severe aortic stenosis experiencing exertional dyspnea, was electively admitted on 05/23/2025 for aortic valve replacement with root enlargement.
IV fluids: 1900
U.O.:� 500
Blood:� 2PRBC, 2 PLTS
Wires:� 1 bipolar V-wire
Drips: Cardene, Precedex, Insulin
�
NEURO: sedated, pupils +2mm B/L
RESP: #8OT @24cm> 500/40%/14/5. Lungs clear B/L. 2 mediastinal (50cc on arrival) chest tubes to -20cm suction. Sanguineous drainage
CV: RRR +S1, S2, no S3, no�rub, no murmur. Dermabond to median sternotomy. Bruising/petechiae at superior portion. RIJ w/Williams locked @ 48cm. PA 32/14; CVP 10; C.O 4.3/CI 2.3. MVO2 69%
ABD: large, round, soft, no BS
EXT: no edema, +2/4 DP pulses B/L, no femoral bruit, left radial A-line intact
: Beltran with clear yellow urine
�
A/P: POD #0 s/p aortic valve replacement [25 mm bioprosthesis]and aortic root enlargement using bovine pericardial patch
HERMELINDO: EF�60%, AV 10/5mmHg
- wean and extubate
- will need instruction regarding antibiotic prophylaxis for dental and invasive procedures
�
# acute surgical blood loss anemia-expected
- trend CBC
�
# T2DM (A1C 7.1)
- insulin infusion x 48h
- no home meds
- consult to diabetes ADVERTISING AGENCY MANAGER
# carotid stenosis (MONAE >70%)
- assess neuro status
- outpatient vascular surgery follow-up appt 06/25 @ 1300 w/Dr. Mora
�
# Hypothyroidism
- resume�Synthroid 75mcg/d
# Rheumatoid arthritis
- continue home hydrocortisone 20mg daily
[2025-05-27] MEDS: LR 250 ML IV ×4 (12:06→15:03)
[2025-05-27] MEDS: KCL 50 IV ×2 (12:09→13:07)
[2025-05-27] MEDS: NEURONTIN PO ×2 (12:10→15:47)
[2025-05-27] MEDS: ANCEF 10 IV ×2 (12:10→12:11)
[2025-05-27] MEDS: SYNTHROID PO (12:10)
[2025-05-27] MEDS: HIPREX PO ×2 (12:10→19:46)
[2025-05-27] MEDS: NSS 500 IV (12:10)
[2025-05-27] MEDS: CORTEF PO (12:10)
[2025-05-27 12:11] LABS: INR 1.45; PT 18.1 Sec (11.4-14.6)
[2025-05-27] MEDS: CALCIUM GLUCONATE 100 IV (12:11)
[2025-05-27 12:12] LABS: APTT 40.9 Sec (23.4-35.0)
[2025-05-27 12:24] LABS: Hematocrit 25.9 % (37.0-47.0); Hemoglobin 8.9 g/dL (12.0-16.0); Platelet Count 217 10^3/uL (130-400)
[2025-05-27 12:25] LABS: Blood Urea Nitrogen 12 mg/dl (7-17); Estimated Creatinine Clearance 88 ml/min; Glucose 112 mg/dl (70-99); Magnesium 2.4 mg/dl (1.6-2.3)
[2025-05-27 13:05] LABS: Glucose - Point of Care 101 mg/dl (70-99)
[2025-05-27] MEDS: TYLENOL PO (13:26)
[2025-05-27] MEDS: NICODERM TRANSDERMAL TRANSDERM (13:27)
[2025-05-27 14:07] LABS: Glucose - Point of Care 102 mg/dl (70-99)
[2025-05-27 15:01] LABS: Glucose - Point of Care 97 mg/dl (70-99)
[2025-05-27 15:22] LABS: Hematocrit 28.3 % (37.0-47.0); Hemoglobin 9.6 g/dL (12.0-16.0); Platelet Count 258 10^3/uL (130-400)
[2025-05-27] MEDS: PACERONE PO (15:47)
--- NOTE | 2025-05-27 15:57 | W.PN.CD ---
Addendum entered and electronically signed by Orlando Diego MD 05/27/25 17:13:
I saw and examined the patient independently.
The ACTIVITIES AIDE's note was reviewed and I agree with the note with changes/additions noted below.
Comment:
69 yo female admitted following surgical aortic valve replacement [25 mm bioprosthesis] and aortic root enlargement using bovine pericardial patch. She is intubated, but awake. Exam with RRR, no murmurs, no edema. Tele and EKG: sinus, RBBB.
Weaning from drips and vent. Extubation this afternoon/evening.
Trend tele.
Original Note:
Today's Communication / Plan
-
Close post-op monitoring and care with weaning of drips and vent as tolerated per CT surgery/CVICU protocol
Impression / Plan
-
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
Severe , moderate AR:
-now s/p surgical aortic valve replacement [25 mm bioprosthesis] and aortic root enlargement using bovine pericardial patch, Dr. Ponce 05/27/25
-intubated and recovering from anesthesia at the time of my assessment (opens eyes to voice, in no distress)
-remains on Levophed
-post-op EKG stable overall with RBBB. Tele SR.
-CT, Beltran, pacer wire in place
-intra-op HERMELINDO EF 60%
DM:
-diabetic ACTIVITIES AIDE consulted
-on insulin drip post-op per protocol
Non-obstructive CAD:
-continue ASA, statin
-glucose and lipid control, and refrain from tobacco
Carotid stenosis:
-OP f/u vascular per chart
-ASA, statin
HTN:
-monitor post-op
Physical Exam
Vital Signs/Labs
Vital Signs
Temp Pulse Resp BP Pulse Ox
98.7 F 76 18 80/47 98
05/27/25 15:00 05/27/25 15:00 05/27/25 15:00 05/27/25 15:00 05/27/25 15:00
05/26/25 05/27/25 05/28/25
06:59 06:59 06:59
Actual Weight 80.7 kg
05/27/25 15:13
05/27/25 11:43
PT 18.1 Sec (11.4-14.6) H 05/27/25 11:43
INR 1.45 05/27/25 11:43
APTT 40.9 Sec (23.4-35.0) H 05/27/25 11:43
Magnesium 2.4 mg/dl (1.6-2.3) H 05/27/25 11:43
Physical Exam
Constitutional: No acute distress
EENT: Anicteric
Cardiovascular: Rhythm & rate is regular and Pedal edema is absent
Respiratory: Lungs clear to auscul. and Other (intubated/ventilated)
Neuro/Psych: Alert
Other: Skin (midsternal incision well-approximated)
Data Reviewed
-
Date of Service: May 27, 2025
EKG: Tracing Personally Visualized and interpreted (SR with RBBB) and Other (SR)
Labs: Labs Reviewed by me
[2025-05-27 16:04] LABS: Glucose - Point of Care 125 mg/dl (70-99)
[2025-05-27] MEDS: OFIRMEV 100 IV (16:11)
[2025-05-27 17:02] LABS: Glucose - Point of Care 116 mg/dl (70-99)
--- NOTE | 2025-05-27 17:03 | PTCARENOTE ---
Respiratory at bedside and pt placed on CPAP.
[2025-05-27 17:32] LABS: B.E. - POC 0.9 mmol/L; Blood Urea Nitrogen - POC 15 mg/dl (3-120); Chloride - POC 111 mmol/L (96-111); Creatinine - POC 0.71 mg/dl (0.3-1.0); Glucose - POC 115 mg/dl (70-99); HCO3 - POC 26 mmol/L (21-28); Hematocrit - POC 28 % PCV (37-47); Hemodilution- POC No; Hemoglobin Calculated - POC 9.6; Ionized Calcium - POC 1.21 mmol/L (1.15-1.33); Lactate - POC 1.54 mmol/L (0.36-0.75); O2 Saturation %Calculated-POC 99.2 % (94-98); PCO2 - POC 44 mmHg (35-48); PO2 - POC 145 mmHg (83-108); Potassium - POC 3.8 mmol/L (3.5-5.1); Sodium - POC 147 mmol/L (136-145); Specimen Type - POC Arterial; pH - POC 7.38 (7.35-7.45)
[2025-05-27] MEDS: ZOFRAN 4 MG IV (17:35)
--- NOTE | 2025-05-27 17:36 | PTCARENOTE ---
Labs reviewed with CTNP; respiratory at bedside and pt extubated at 1730; 6L NC in place.
--- NOTE | 2025-05-27 18:09 | RESPNOTE ---
Pt was successfully extubated at 1730. Pt placed on 6L NC and is doing well. Pt unable to do I.S. at this time due to nausea- pt was receiving Zofran post extubation. RN aware.
[2025-05-27] MEDS: CRESTOR PO (18:29)
[2025-05-27] MEDS: ANCEF 5 IV (18:31)
[2025-05-27] MEDS: DILAUDID 0.25 MG IV (18:54)
[2025-05-27] MEDS: SENOKOT-S PO (19:46)
[2025-05-27] MEDS: REGLAN 10 MG IV (20:09)
--- NOTE | 2025-05-27 20:30 | PTCARENOTE ---
Patient received resting in bed. Patient A+A+Ox3. No neurological deficits noted. No c/o headache, dizziness or lightheadedness. Patient with c/o nausea. PA for CT Surgery made aware. Reglan 10 mg IV ordered and given with positive relief
provided. O2 at 4L via NC. SpO2 98%. Two Mediastinal chest tubes - Intact and patent - 20 ml red drainage - No air leak. Chest tube dressing intact. Sinus Rhythm with BBC and occasional PAC and rare PVC. Heart rate 80's. VVI 40/20/10.
Patient with no c/o chest pain, pressure or discomfort. Abdomen soft, round, nontender. Hypoactive bowel sounds. No BM. No vomiting. Beltran catheter intact - Temperature sensing - Yellow, clear urine - Outputs as documented. Patient with no c/o
back or flank pain. Levophed gtt off. Cardene gtt started 2.5 mg/hr (12.5 ml/hr). Right I.J. Cordis with Wilmot Levi catheter. Left radial arterial line. Zeroed and calibrated. Pressure bag. Waveforms within normal limits. C.O. 5.28 C.I. 2.84
SVR 939 PAP 24/10 (15) CVP 5-6. Sternal incision intact - Surgical adhesive - Ecchymotic - Open to air. Surgical bra intact. Assessment as documented.
[2025-05-27 20:51] LABS: Glucose - Point of Care 96 mg/dl (70-99)
[2025-05-27 20:51] LABS: Glucose - Point of Care 111 mg/dl (70-99)
[2025-05-27] MEDS: TORADOL 15 MG IV (21:19)
[2025-05-27 22:01] LABS: Glucose - Point of Care 128 mg/dl (70-99)
[2025-05-27] MEDS: REMOVE NICOTINE PATCH REMOVE (22:26)
[2025-05-27] MEDS: NEURONTIN 100 MG PO (22:26)
[2025-05-27] MEDS: PACERONE 200 MG PO (22:26)
[2025-05-27] MEDS: TYLENOL 1000 MG PO (22:27)
--- NOTE | 2025-05-27 22:30 | PTCARENOTE ---
Toradol 15mg IV for pain management. Cardene gtt at 5 mg/hr (25 ml/hr). C.O. 4.60 C.I. 2.48 SVR 1095 PAP 27/10 (17) CVP 6-7. Patient dozing intermittently. Assessment as documented.
[2025-05-27] MEDS: CARDENE 200 IV (22:50)
--- NOTE | 2025-05-27 23:06 | W.PN.CT ---
Today's Communication / Plan
-
-pod #1
-no issues overnight
-kept sbp 90-[address] Ponce. Liberate BP 90-130
-CI 2.64, CO 4.91. drips: Insulin, Cardene 7.5
-[address]s: 120/280 in 12/24 hrs
-delined
-continue insulin
-d/c Beltran
-current meds (ASA, Crestor, Lopressor, Amio, Hydrocortisine 20 qd, Protonix, Synthroid, Feosol, vit C, Hiprex)
-encourage IS, OOB
Assessment / Plan
-
- Symptomatic aortic valve stenosis with small annulus- s/p aortic valve replacement [25 mm Vasquez Inspiris Resilia bioprosthesis] and aortic root enlargement using bovine pericardial patch by Dr. Ponce on 05/27/25, pod #1
- Intraop HERMELINDO: LVEF preop was 60 to 65%. Following surgery EF remained the same at 60% with no new regional wma. She had a moderate degree of left ventricular hypertrophy. RV was normal in size and function. There was no systolic anterior motion
of the mitral valve leaflets.
- Chronic diastolic heart failure with moderate degree of left ventricular hypertrophy
- Carotid stenosis (MONAE >70%)
- Pyelonephritis
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
- Adrenal insufficiency
- Hypertension
- Hyperlipidemia
- DM II with HbA1c of 7.1
- Hypothyroidism
- Rheumatoid arthritis- on hydrocortisone 20mg daily at home
- Acute postop blood loss anemia - s/p 2 pRBCs
- Acute postop coagulopathy - s/p 2 unit platelets
- Acute postop atelectasis/pulmonary insufficiency
- Acute postop hypovolemia with subsequent hypervolemia
Discussed patient care with: Nursing and Care Team
Subjective
-
Date of Service: May 27, 2025
Objective Data
-
Lab Results
05/27/25 15:13
05/27/25 11:43
PT 18.1 Sec (11.4-14.6) H 05/27/25 11:43
INR 1.45 05/27/25 11:43
APTT 40.9 Sec (23.4-35.0) H 05/27/25 11:43
Vital Signs
Vital Signs
Temp Pulse Resp BP Pulse Ox
98.0 F 66 13 118/46 99
05/27/25 22:10 05/27/25 22:30 05/27/25 22:30 05/27/25 22:26 05/27/25 22:30
CT Intake/Output/Weight
05/27/25 05/27/25 05/28/25
06:59 18:59 06:59
Intake Total 1748.6 / 1897.8 149.2 / 1897.8
Output Total 1435 / 1725 290 / 1725
Balance 313.6 / 172.8 -140.8 / 172.8
SaO2: 99
Physical Exam
-
General: Awake and AOx3
Cardiovascular: Regular rate & rhythm, No Murmurs and No Rub
Respiratory: Decreased Breath Sounds
Sternum: Stable
Incision: Clean, Dry and Intact
Extremities: Edema +1 (LLE 1+ DP; RLE DP by Doppler)
Abdomen: soft, nontender, nondistended, +decreased bowel sounds
Data Reviewed
-
Lab Results: Results Reviewed
Medications: Active Meds Reviewed
Chest X-Ray: Report Reviewed and Image Reviewed
ECG: Report Reviewed and Image Reviewed
[2025-05-27 23:53] LABS: Glucose - Point of Care 93 mg/dl (70-99)
[2025-05-28] VITALS (34 sets, daily range): BP systolic 101–157; BP diastolic 43–102; BMI 31.5
[2025-05-28] MEDS: DILAUDID 0.25 MG IV (00:18)
--- NOTE | 2025-05-28 00:40 | PTCARENOTE ---
Patient repositioned. CHG bath. IV Dilaudid 0.25 mg for pain management. Patient A+A+Ox3. No neurological deficits noted. C.O. 4.28 C.I. 2.30 SVR 1084 PAP 31/08 (17) CVP 6-7. Assessment as documented.
[2025-05-28 02:24] LABS: Glucose - Point of Care 117 mg/dl (70-99)
[2025-05-28] MEDS: ANCEF 5 IV ×2 (02:27→10:03)
[2025-05-28] MEDS: ZOFRAN 4 MG IV ×3 (02:32→23:53)
--- NOTE | 2025-05-28 03:00 | PTCARENOTE ---
Patient with c/o nausea. Zofran 4mg IV administered with positive result. No vomiting. AM lab work collected and sent. EKG completed. C.O. 4.91 C.I. 2.64 SVR 928 PAP (20) CVP 7. Assessment/Interventions as documented.
[2025-05-28 03:31] LABS: Hematocrit 28.5 % (37.0-47.0); Hemoglobin 9.5 g/dL (12.0-16.0); Mean Corp Hgb Conc. 33.3 g/dL (33.0-37.0); Mean Corpuscular Volume 100.4 fL (81.0-99.0); Platelet Count 241 10^3/uL (130-400); Red Cell Dist. Width 16.8 % (11.5-14.5)
[2025-05-28] MEDS: CARDENE 200 IV (03:48)
[2025-05-28] MEDS: TORADOL 15 MG IV ×2 (03:49→10:02)
[2025-05-28 03:53] LABS: Blood Urea Nitrogen 18 mg/dl (7-17); Calcium 8.7 mg/dl (8.4-10.2); Carbon Dioxide 27 mmol/L (22-30); Chloride 113 mmol/L (98-107); Estimated Creatinine Clearance 88 ml/min; Glucose 112 mg/dl (70-99); Magnesium 2.1 mg/dl (1.6-2.3); Potassium 4.4 mmol/L (3.5-5.1); Sodium 144 mmol/L (135-145); eGFR > 60.00
[2025-05-28 04:16] LABS: Glucose - Point of Care 96 mg/dl (70-99)
--- NOTE | 2025-05-28 04:40 | PTCARENOTE ---
Toradol for pain management. [place] Levi catheter removed without difficulty per PA order. Left radial arterial line remains. Cardene gtt. Bed scale weight 83.3 kg. Patient back to sleep. Assessment/Interventions as documented.
[2025-05-28] MEDS: TYLENOL PO ×2 (05:30→22:18)
[2025-05-28 05:48] LABS: Glucose - Point of Care 96 mg/dl (70-99)
--- NOTE | 2025-05-28 07:45 | PTCARENOTE ---
Addendum entered by Diana Smith RN 05/28/25 18:11:
Throughout this shift pt having difficulty communicating with staff, pt often when asked a question pt will respond with 'ok' multiple times; when ask where pt is currently pt responds 'ok'; pt asked who was in the room with pt, pt responded 'nurse'
then 'ok'; when asked how long her and her was pt responded '72' 'ok'; updated CTNP NSR on monitor and VSS; rapid response and stroke alert called.
Original Note:
Received pt from shift mgr RN; pt AAOx3 and resting comfortably in bed; NSR on monitor and VSS; RIJ Cordis, Left A-line and PIV x1 patent; Cardene and Insulin infusing see flow sheet for details; Lungs diminished; IS to 750; CT x2 to -20 wall
suction no air leak and no crepitus noted; hypoactive bowel sounds; Beltran catheter draining yellow urine; palpable pulses throughout; trace generalized edema noted; all surgical sites C/D/I; see nursing documentation for further details.
[2025-05-28 07:57] LABS: Glucose - Point of Care 102 mg/dl (70-99)
--- NOTE | 2025-05-28 07:57 | PN.DE.MGMTRT ---
Insulin Management
- -
05/28/2025 Diabetes Management Consult
Patient admitted 05/27 for OR for aortic valve replacement and root enlarged. PMH HLD, diabetes, HTN, hypothyroid. Prior to admission was taking no diabetes meds. A1C 7.1, cr .6, eGFR > 60.
POD 1 Patient is awake alert and oriented able to discuss diabetes care. at bedside and very supportive. States she has had diabetes ~ 5 years, followed by primary doctor who recommended diet and exercise.
Currently receiving critical care glycemic protocol insulin infusion requiring .8 to 2.6 units of insulin per hour.
Will continue insulin infusion today and consider transition to metformin 500 mg BID with Farxiga 10 mg daily in AM tomorrow. Insulin infusion to be stopped at ~ 2pm after lunch.
I provided Contour glucose monitor and instructed patient and but patient not up to the task. receptive and able to demonstrate steps for testing. Advised to test BID in pattern provided in diabetes education booklet. Also
reviewed action of new diabetes medications and highlighted in education booklet.
RX for test strips, lancets and new medications in ambulatory orders.
CM to check cost of Farxiga vs Jardiance, whichever is most cost effective should be prescribed.
Discussed with nurse and cardiac SHELLFISH GROWER.
Will follow.
Diabetes History
- -
Type of Diabetes: 2
Pre-Admission Diabetes Regimen
05/27/25 05/28/25
11:43 02:53
Creatinine 0.5 L 0.6
Lab Results
Hemoglobin A1c 7.1 % (4.0-5.6) H 05/24/25 12:11
Insulin Pump Settings
IP Diabetes Regimen
05/27/25 05/27/25 05/27/25
11:43 11:47 13:03
Glucose 112 H
POC Glucose 143 H 101 H
05/27/25 05/27/25 05/27/25
14:05 14:59 16:02
Glucose
POC Glucose 102 H 97 125 H
05/27/25 05/27/25 05/27/25
17:00 18:11 19:54
Glucose
POC Glucose 116 H 111 H 96
05/27/25 05/27/25 05/28/25
22:00 23:51 02:22
Glucose
POC Glucose 128 H 93 117 H
05/28/25 05/28/25 05/28/25
02:53 04:14 05:47
Glucose 112 H
POC Glucose 96 96
Meal type: Dinner
Meal type: Lunch
Patient Education
[2025-05-28] MEDS: ROXICODONE 5 MG PO (07:58)
--- NOTE | 2025-05-28 08:27 | W.PN.INTV ---
Today's Communication / Plan
Recommendations
Up OOB as tolerated
Pain control
Chest tube removal per CT surgery team
Continue insulin drip per protocol with goal BG 110�140
Given her tobacco smoking history, recommend outpatient LDCT chest which can be performed by PCP otherwise she can follow-up with us in the pulmonary office
Air Carrier Operations Inspector services to continue to follow along while patient remains in CVICU; once transferred to CVICU�telemetry status then we will sign off at that time
Assessment
-
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
insufficiency, Rathke's cleft cyst, history of recurrent UTI, colovesicular fistula, perirectal abscess and chronic lower extremity edema who presents with elective aortic valve replacement + aortic root dilation. Patient known to the
cardiothoracic surgery service, last visit 05/24/[address] Ponce. Recent echo on 03/09/2025 showed severe aortic stenosis with moderate AI, with peak gradient of 77 mmHg, and mean gradient 42 mmHg, with PRADEEP 0.7 cm�. Left + right heart cath on
03/26/2025 showed nonobstructive CAD with mildly elevated LV filling pressures, with mild postcapillary pulm hypertension with PCWP 20, TP, and CO/CI: 6.59/3.51, respectively, with PVR 1.5 Wood units. Mean gradient across AV was 44.87 mmHg with
a valve area of 0.97 cm�. She was previously supposed to get aortic valve replacement via Dr. Ponce earlier this month, however this was postponed due to recent hospitalization here at from 05/04 - 05/08 for urosepsis (UCx on 05/04/2025 grew
pansensitive E. coli). On 05/27/2025, patient underwent surgical aortic valve replacement with 25 mm bioprosthesis and aortic root enlargement using bovine pericardial patch. There were no immediate complications, and patient was transferred to the
CVICU postoperatively for further care. Air Carrier Operations Inspector services consulted for additional management/recommendations.
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
stenosis + AI, history of hyponatremia associated with adrenal insufficiency, Rathke's cleft cyst, history of UTI, colovesical fistula, history of perirectal abscess, chronic lower extremity edema
Impression:
#Severe aortic valve stenosis with small annulus s/p surgical aortic valve replacement with 25 mm bioprosthesis (POD #1)
#Aortic valve enlargement using bovine pericardial patch (POD #1)
#Chronic anemia
#Hypocalcemia - resolved
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
#History of adrenal insufficiency with hyponatremia
#Hypertension/hyperlipidemia
#DM type II
#Chronic HFpEF
#History of UTI
Plan:
Patient successfully extubated to nasal cannula on 05/27/2025, and is now saturating 98% on room air
Maintain SpO2 >90-94%
prn nebulized bronchodilators - not currently bronchospastic
Encourage incentive spirometer q1hr while awake
Pulmonary artery catheter parameters will be followed
Pressors/antihypertensive/inotropes/diuretics will be provided as needed
Maintain MAP>65
Replete electrolytes with K>4, Mg>2
Monitor chest tube output (mediastinal chest tubes x 2)
Monitor hemoglobin
Monitor platelet count and coags
Transfuse blood products as needed to maintain Hb>7g/dL, plt>50k (given post-operative status)
CT surgery managing chest tubes
Monitor blood sugar to maintain euglycemia with goal BG 110-140
Insulin drip per protocol
Given her significant tobacco smoking history, she does qualify for annual LDCT chest for lung cancer screening purposes.
- Her recent CTA chest with/without contrast on 03/23/2025 did show paraseptal emphysema predominantly in the right upper lobe with evidence of interlobular septal thickening likely due to left-sided heart failure in addition to small bilateral
pleural effusions. There was no significant nodule or mass seen on that imaging study.
- Would recommend her to continue getting annual LDCT chest imaging, next would not be due until March 2026; either her PCP can continue ordering this or she is more than welcome to follow-up with me in the Pulmonary office
Aspiration precautions
DVT prophylaxis
Early nutrition
Early mobilization
Critical care statement: A total of 38 minutes of critical care time was provided for this patient today. This includes management of ventilator, spontaneous breathing trial, arterial blood gases, pressors, of unstable vital signs, evaluation of the
patient at bedside, reviewing the patient's pertinent medical records including radiographs, microbiology, laboratory evaluations, and discussion with primary team and critical care nursing.
Subjective Dataa
Subjective Data
Date of Service:
Date of Service: May 28, 2025
Chief Complaint: Air Carrier Operations Inspector Follow Up
Subjective:
Patient was seen and evaluated this morning. Patient's , Clif, present at bedside. Heart rate 64, BP 101/89, and she is saturating 98% on 2 L/min nasal cannula. Currently on insulin drip at 0.5 units/h. Patient says she did not sleep well
overnight due to chest discomfort. Her chest pain is better this morning. She denies SOB, [place], nausea, fevers or chills.
Review of Systems
General: Other (Negative unless mentioned above)
Objective Data
Data Reviewed
Vital Signs / I&O / Oxygen:
Vital Signs
Temp Pulse Resp BP Pulse Ox
99.4 F 72 22 122/43 97
05/28/25 08:00 05/28/25 08:45 05/28/25 08:10 05/28/25 08:30 05/28/25 09:12
Intake and Output
05/27/25 05/28/25 05/29/25
06:59 06:59 06:59
Intake Total 2348.6 / 2409.4 82.9 / 82.9
Output Total 2470 / 2590 240 / 240
Balance -121.4 / -180.6 -157.1 / -157.1
SaO2 [CPAP] 99
SaO2 [SIMV] 98
SaO2 97
Nasal Cannula flow liters per 2
minute
Physical Exam
General: Respiratory Distress (negative), Comfortable, Pain (Occasional chest discomfort at recent operative site), Chills (negative) and Sweats (negative)
HEENT: Normocephalic and Anicteric
Cardiovascular: S1-S2 and Peripheral Edema (negative)
Respiratory: Wheeze (negative), Crackles (Bibasilar), Rhonchi (negative), Non-Labored Respirations, Stridor (negative) and Chest Tube (Mediastinal chest tubes x 2)
GI: Soft, Non Distended, Non Tender and Normal Bowel Sounds
Neurology: Awake, Alert, Oriented and Tremors (negative)
Skin: Warm, Dry, Cyanosis (negative) and Jaundice (negative)
Labs/Micro/Reports
Lab Data
05/28/25 02:53
05/28/25 02:53
Laboratory Results
05/27/25
11:43
PT 18.1 H
INR 1.45
APTT 40.9 H
pH 7.37
pCO2 46 H
pO2 93
HCO3 26.6
O2 Delivery Level
Microbiology
05/24/25 12:11 Nose MRSA Screen - Final
No Methicillin Resistant Staphylococcus aureus isolated.
[2025-05-28] MEDS: LOPRESSOR 12.5 MG PO ×2 (08:30→21:00)
[2025-05-28] MEDS: NICODERM TRANSDERMAL 14 MG TRANSDERM (08:31)
[2025-05-28] MEDS: CORTEF 20 MG PO (08:31)
[2025-05-28] MEDS: PACERONE 200 MG PO ×2 (08:31→16:56)
[2025-05-28] MEDS: SYNTHROID 75 MCG PO (08:31)
[2025-05-28] MEDS: PROTONIX 40 MG PO (08:31)
[2025-05-28] MEDS: NEURONTIN 100 MG PO (08:31)
[2025-05-28] MEDS: HIPREX 1 GRAM PO ×2 (08:31→21:00)
[2025-05-28] MEDS: LOW STRENGTH ASPIRIN 81 MG PO (08:31)
[2025-05-28] MEDS: SENOKOT-S 1 TABLET PO ×2 (08:37→21:00)
[2025-05-28] MEDS: FEOSOL 325 MG PO (08:37)
[2025-05-28] MEDS: VITAMIN C 500 MG PO (08:37)
[2025-05-28] MEDS: BACTROBAN 2% OINTMENT 1 APPLIC NASAL ×2 (08:37→21:00)
[2025-05-28] MEDS: MAGNESIUM OXIDE 500 MG PO ×2 (08:37→21:00)
--- NOTE | 2025-05-28 08:54 | PTCARENOTE ---
Cardene turned off, A-line and Beltran removed per CTNP order; pt OOB x2 to chair; NSR on monitor and VSS; family at bedside and updated.
--- NOTE | 2025-05-28 10:05 | W.PN.CD ---
Addendum entered and electronically signed by Orlando Diego MD 05/28/25 10:49:
I saw and examined the patient independently.
The STRETCHING MACHINE OPERATOR's note was reviewed and I agree with the note with changes/additions noted below.
Comment:
69 yo female admitted following surgical aortic valve replacement [25 mm bioprosthesis] and aortic root enlargement using bovine pericardial patch. Sitting in chair without complaint. Exam with RRR, no murmurs, no edema. Tele: sinus, brief SVT.
Post op bio-AVR. Continue ASA 81mg daily.
Brief SVT on tele. Continue metoprolol.
Original Note:
Today's Communication / Plan
-
Follow telemetry
Ambulate
Impression / Plan
-
I/P: 69F with severe aortic stenosis, moderate aortic regurgitation, non-obstructive CAD, RBBB, hx tobacco use, DM, adrenal insufficiency, HLD, HTN, carotid stenosis, and hypothyroidism who is now s/p AVR.
Primary banking attorney: Dr Bacon
Severe , moderate AR s/p surgical aortic valve replacement [25 mm bioprosthesis] and aortic root enlargement using bovine pericardial patch, Dr. Ponce 05/27/25
-Gtts: Insulin
- LVEF 60% without regional wall motion abnormality, unchanged moderate LVH, no BISI
- EKG stable, unchanged RBBB
Coronary artery disease, nonobstructive
-continue ASA, statin
-Glucose control, lipid control, and refrain from tobacco
Type 2 diabetes mellitus, HgbA1c 7.1%, on insulin drip
HTN, stable, follow postoperatively
Carotid stenosis, R ICA >70%, outpatient follow-up with vascular surgery, on aspirin and statin
SUBJECTIVE:
Denies chest pain, dizziness, and shortness of breath
Physical Exam
Vital Signs/Labs
Vital Signs
Temp Pulse Resp BP Pulse Ox
99.4 F 72 22 122/43 97
05/28/25 08:00 05/28/25 08:45 05/28/25 08:10 05/28/25 08:30 05/28/25 09:12
05/27/25 05/28/25 05/29/25
06:59 06:59 06:59
Actual Weight 80.7 kg 83.3 kg
05/28/25 02:53
05/28/25 02:53
PT 18.1 Sec (11.4-14.6) H 05/27/25 11:43
INR 1.45 05/27/25 11:43
APTT 40.9 Sec (23.4-35.0) H 05/27/25 11:43
Magnesium 2.1 mg/dl (1.6-2.3) 05/28/25 02:53
Physical Exam
Constitutional: No acute distress and Comfortable
EENT: Anicteric and Moist mucous membranes
Cardiovascular: Rhythm & rate is regular, Pedal edema is absent and S1S2 is normal
Respiratory: Respiratory effort normal and Lungs clear to auscul.
GI: Soft, Distention absent, Flat, Non tender and Normal bowel sounds
Neuro/Psych: AO x 3
Other: Skin (Warm and dry)
Data Reviewed
-
Date of Service: May 28, 2025
[2025-05-28 10:09] LABS: Glucose - Point of Care 109 mg/dl (70-99)
--- NOTE | 2025-05-28 10:32 | W.PN.ANS.POP ---
Anesthesia Post Operative
- Anesthesia Post Op Note
Vital Signs Stable-See Nursing Note: Yes
Airway Patent: Yes
Adequate Pain Control: Yes
Change in Mental Status: No
Current Postoperative Nausea & Vomiting: No
Anesthesia Complications: No
General Anesthetic Recall: No
Unplanned Admission: No
Post Op Hydration Adequate: Yes
[2025-05-28] MEDS: NSS IV (11:37)
[2025-05-28 12:23] LABS: Glucose - Point of Care 68 mg/dl (70-99)
[2025-05-28 12:40] LABS: Glucose - Point of Care 65 mg/dl (70-99)
[2025-05-28 12:54] LABS: Glucose - Point of Care 96 mg/dl (70-99)
--- NOTE | 2025-05-28 13:02 | PTCARENOTE ---
Update Berna Maddox CERTIFIED TUMOR REGISTRAR on blood sugars 68 & 68; per CERTIFIED TUMOR REGISTRAR turn Insulin drip off now and start corrective insulin at dinner time; update CTNP on plan and changes made by CTNP; update family at bedside.
--- NOTE | 2025-05-28 13:10 | PTCARENOTE ---
NSR on monitor and VSS; pt resting comfortably in chair; family at bedside.
[2025-05-28] MEDS: FERRLECIT 110 MG IV (13:16)
[2025-05-28] MEDS: TYLENOL 1000 MG PO (13:16)
[2025-05-28 16:21] LABS: Glucose - Point of Care 267 mg/dl (70-99)
--- NOTE | 2025-05-28 16:45 | CM ---
priced markie with pts perscript plan. her first month is $ 441, of that $388 is her remaining deductible. the next month she pays 25% of the cost of the med whichis approx 4 151. she asked that i call her husb and he agreed to the koch. pat
vanessa aware.
--- NOTE | 2025-05-28 16:47 | CM ---
dc plans remain home when medically stable, and a f/u visit from the CT Transitional care nurse after dc
[2025-05-28] MEDS: CRESTOR 5 MG PO (16:56)
--- NOTE | 2025-05-28 17:01 | PTCARENOTE ---
Assessment unchanged; NSR on monitor and VSS; pt resting comfortably in bed.
[2025-05-28] MEDS: NOVOLOG FLEXPEN-LOW RESISTANCE 3 UNITS SC (17:17)
[2025-05-28 18:20] LABS: Glucose - Point of Care 221 mg/dl (70-99)
--- NOTE | 2025-05-28 18:30 | RR ---
Stroke alert and Rapid Response called on pt; ICU team at bedside; MD and CTNP at bedside; NIHSS 2; pt transported to CAT Scan with ICU team.
A Rapid Response was called on this patient, please see Rapid Response form.
--- NOTE | 2025-05-28 18:34 | W.PN.UPDATE ---
Update Note
Progress Note Update
Patient with some word finding difficulty this morning saying 'okay' then reverting to complete sentences. No focal deficits. No UTI on urine culture. Narcotics held. Called to see patient at 1820 with worsening word finding difficulty repetitive
with okay unable to state the year she was and unable to state place and recent events. Questionable slight left facial droop. NIH score 2. Stroke alert called and Dr. Ponce notified.. Patient transported to CT scan per protocol with
Sterling in attendance. Dr Ponce notified of no acute intracranial abnormality and vascular surgery consulted for evaluation of CEA onknown LICA >70% stenosis
--- NOTE | 2025-05-28 18:51 | W.PN.UPDATE ---
Update Note
Progress Note Update
18:18
stroke alert called
patient seen and examined at bedside
patient was having difficulty finding words with some minor left sided facial drop
STAT CT head , CTA head and neck ordered.
Transfer center called and spoke to neuro production honing machine operator.
Neuro production honing machine operator will call back after reviewing imaging result.
19:00
Neurology called back, reviewed CT head which shows no acute finding.
CTA head and neck shows no large vessel occlusion.
Recommending MRI brain without contrast.
Routine neurology consult.
Continue aspirin.
Will increase Crestor to 10 mg.
--- NOTE | 2025-05-28 20:30 | PTCARENOTE ---
Patient received from ICU Rapid Response Team/Stroke Alert Team via bed from CAT Scan. Patient A+A+Ox4. NIHSS 1. Deficit: Left facial droop. Patient speaking, swallowing and following commands without difficulty. Patient able to move all
extremities without difficulty. Resting in bed. Two Mediastinal chest tubes - Intact and patent - 20 ml red drainage - Dressing intact. O2 at 2L via NC. SpO2 98%. Lungs diminished throughout lung richards. No adventitious breath sounds noted.
Sinus Rhythm with BBC. No ectopy noted. Heart rate 80's. V- Wire insulated. Patient with no c/o chest pain, pressure or discomfort. Abdomen soft, round, nontender. No BM. No c/o nausea. No vomiting. No urge to void at this time. Positive,
palpable pulses. Patient with no c/o headache, dizziness or lightheadedness. No c/o back or flank pain. Sternal incision intact/ecchymotic - Surgical adhesive - Open to air. Surgical bra intact. Right I.J. Cordis. Assessment as documented.
[2025-05-28 22:18] LABS: Glucose - Point of Care 126 mg/dl (70-99)
[2025-05-28 22:18] LABS: Hematocrit 26.3 % (37.0-47.0); Hemoglobin 8.7 g/dL (12.0-16.0); Mean Corp Hgb Conc. 33.1 g/dL (33.0-37.0); Mean Corpuscular Volume 100.8 fL (81.0-99.0); Platelet Count 215 10^3/uL (130-400); Red Cell Dist. Width 16.9 % (11.5-14.5)
[2025-05-28] MEDS: PACERONE PO (22:18)
[2025-05-28] MEDS: REMOVE NICOTINE PATCH 1 PATCH REMOVE (22:19)
--- NOTE | 2025-05-28 22:26 | W.PN.UPDATE ---
Update Note
Progress Note Update
Alerted by CT surgery of patient POD 1 from an AVR who earlier this afternoon had some word finding difficulty and repetitive speech. This resolved, but then she started experiencing the same symptoms a few hours ago and have been persistent. Stroke
alert was called. I reviewed her CTA neck which shows soft and calcified thrombus in her proximal right ICA causing a severe stenosis. She also has bulky calcific disease at her left carotid bulb resulting in around 50% stenosis. I discussed her
case directly with Dr Ponce. Given her persistent symptoms this is more consistent with an active stroke rather than TIA, and therefore needs emergent neuro evaluation and intervention. Although her carotid disease is worse on the right, her symptoms
are likely left sided (Broca's area is located in the left in the vast majority of patients). I have recommended heparinization if safe from AVR standpoint, and emergent evaluation by a neurologist/neurointerventionalist. Transcervical carotid
intervention is not indicated during an acute CVA.
[2025-05-28 22:27] LABS: APTT 44.5 Sec (23.4-35.0)
[2025-05-28] MEDS: NSS 500 IV (23:15)
[2025-05-29 00:03] VITALS: BP 156/63
[2025-05-29 00:10] VITALS: BP 156/63
[2025-05-29] MEDS: PLAVIX 600 MG PO (00:11)
--- NOTE | 2025-05-29 00:30 | PTCARENOTE ---
Patient with neurological changes. NIHSS 7. Left facial droop, Expressive Aphasia, Mild Dysarthria. Patient with difficulty expressing self and answering simple verbal commands. Moves all extremities without difficulty. PA for CT Surgery,
Anin Morgan PA-C, assessed patient - Notified Neurology and Cardiothoracic surgeon - Dr. Calderon Ponce. Patient taken to CAT Scan. IVF bolus 250 ml given. Plavix 600 mg PO given. Patient with no difficulty swallowing thin liquids. Cardene
gtt started to maintain SBP 130-150. Patient bladder scanned due to lack of urine output - 519 ml. Patient then incontinent, saturating bed linens. Repeat bladder scan 188. Patient given CHG bath and linens changed. Patient resting in bed.
Assessment/Interventions as documented.
[2025-05-29] MEDS: CARDENE 200 IV (00:50)
--- NOTE | 2025-05-29 00:54 | W.PN.UPDATE ---
Update Note
Progress Note Update
-checked pt at 7:30pm. She was conversant, A&O x4 (self, time, place, her recent surgery), no aphasia or difficulty with speech or vision was noted. NIH score was 1 for slight facial droop on L with smiling.
-at 8:40 pm pt was found to be aphasic, unable to tell her age or year, repeating word 'two' . Pt was able to move all extremities equally, strength was 5/5 b/l with intact sensation. No new significant facial droop noted. NIH score was 7 for
aphasia and dysarthria.
-discussed with Dr. Ponce and Dr. Hillman. Also, reached out to [facility], Dr. Freeman. He suggested repeating Head CT and head/neck CTA and reviewed the studies. Pt was given 600 mg of Plavix per Neurology. Pt was accepted to CT surgery service
by Dr. Jeter and transferred by air. Recent TAVR CT study was sent to [facility] as well.
-updated pt's , Gabriele, several times. Answered all questions
--- NOTE | 2025-05-29 02:20 | PTCARENOTE ---
JONELLE Shankar flight crew arrived to [facility] room 2264 to receive patient. Patient and crew left without difficulty. Patient's glasses and dentures (Full upper and lower dentures) given to flight crew. Report called to JONELLE SANTANA - 8th floor
Cardiac ICU.
== END 2025-05-29 02:20 | disposition short-term general hospital (02) | DRG 219 ==
LOC: CVICU 05:04
PROVIDERS: Anesthesiology; Physician Assistant Medical; ADMITTING PHYSICIAN Thoracic Surgery (Cardiothoracic Vascular Surgery); CONSULT PHYSICIAN Internal Medicine Critical Care Medicine; FAMILY PHYSICIAN Family Medicine
PROC: 02RF08Z Replacement of Aortic Valve with Zooplastic Tissue, Open Approach (ICD-10-PCS; 2025-05-27)
PROC: 02UX08Z Supplement Thoracic Aorta, Ascending/Arch with Zooplastic Tissue, Open Approach (ICD-10-PCS; 2025-05-27)
PROC: 30233N1 Transfusion of Nonautologous Red Blood Cells into Peripheral Vein, Percutaneous Approach (ICD-10-PCS; 2025-05-27)
PROC: B24BZZ4 Ultrasonography of Heart with Aorta, Transesophageal (ICD-10-PCS; 2025-05-27)
PROC: 30233R1 Transfusion of Nonautologous Platelets into Peripheral Vein, Percutaneous Approach (ICD-10-PCS; 2025-05-27)
DX: I35.2 Nonrheumatic aortic (valve) stenosis with insufficiency (principal); J95.1 Acute pulmonary insufficiency following thoracic surgery; D62 Acute posthemorrhagic anemia; E27.40 Unspecified adrenocortical insufficiency; I50.32 Chronic diastolic (congestive) heart failure; R47.01 Aphasia; D68.8 Other specified coagulation defects; J98.11 Atelectasis; I11.0 Hypertensive heart disease with heart failure; E11.9 Type 2 diabetes mellitus without complications; E78.00 Pure hypercholesterolemia, unspecified; I25.10 Atherosclerotic heart disease of native coronary artery without angina pectoris; I65.21 Occlusion and stenosis of right carotid artery; E83.51 Hypocalcemia; E03.9 Hypothyroidism, unspecified; M06.9 Rheumatoid arthritis, unspecified; R29.810 Facial weakness; R47.1 Dysarthria and anarthria; I45.10 Unspecified right bundle-branch block; Y83.2 Surgical operation with anastomosis, bypass or graft as the cause of abnormal reaction of the patient, or of later complication, without mention of misadventure at the time of the procedure; E87.70 Fluid overload, unspecified; E86.1 Hypovolemia; I27.20 Pulmonary hypertension, unspecified; Z79.82 Long term (current) use of aspirin; Z79.899 Other long term (current) drug therapy; Z87.440 Personal history of urinary (tract) infections; Z87.891 Personal history of nicotine dependence; Z90.49 Acquired absence of other specified parts of digestive tract
CPT/HCPCS: 0042T; 36415; 70450; 70496; 70498; 71045; 80048; 80053; 81003; 82248; 82330; 82565; 82805; 82810; 82947; 82962; 83036; 83735; 84132; 84302; 84520; 85014; 85018; 85025; 85027; 85049; 85610; 85730; 86850; 86900; 86901; 86920; 87070; 88311; 93005; 93312; 93320; 93325; 93880; 94002; 99406; J2916; P9016; P9047; P9073; Q9967

== ENCOUNTER 2025-06-08 23:00 | Inpatient (IN) | payer MEDICARE, SELFPAY ==
[2025-06-08] VITALS (7 sets, daily range): BP systolic 116–143; BP diastolic 55–70; BMI 29.8
[2025-06-08 16:25] LABS: Hematocrit 30.3 % (37.0-47.0); Hemoglobin 10.4 g/dL (12.0-16.0); Mean Corp Hgb Conc. 34.3 g/dL (33.0-37.0); Mean Corpuscular Volume 91.8 fL (81.0-99.0); Nucleated Red Blood Cells % 0 %; Platelet Count 418 10^3/uL (130-400); Red Cell Dist. Width 16.3 % (11.5-14.5)
[2025-06-08 16:38] LABS: INR 1.05; PT 14.1 Sec (11.4-14.6)
[2025-06-08 16:45] LABS: ALT (SGPT) 10 U/L (0-35); AST (SGOT) 17 U/L (14-36); Albumin 3.6 g/dl (3.5-5.0); Alkaline Phosphatase 112 U/L (38-126); Blood Urea Nitrogen 10 mg/dl (7-17); Calcium 8.4 mg/dl (8.4-10.2); Carbon Dioxide 24 mmol/L (22-30); Chloride 93 mmol/L (98-107); Glucose 147 mg/dl (70-99); Potassium 3.9 mmol/L (3.5-5.1); Sodium 125 mmol/L (135-145); Total Protein 6.4 g/dl (6.3-8.2); eGFR > 60.00
[2025-06-08 16:54] LABS: Troponin I 0.070 ng/ml
--- NOTE | 2025-06-08 17:56 | ED.GENMED ---
History of Present Illness
General
Chief Complaint: Breathing Problem
Source: patient and family
Exam Limitations: none
Time Seen by Provider: 06/08/25 16:58
Nursing documentation reviewed up to this point in time: agreed with
History of Present Illness
History of Present Illness:
Patient status post aortic valve repair on May 27, 2025 at [facility] under Dr. Ponce, who subsequently developed strokelike symptoms and required CEA, discharged from hospital 4 days ago, presents to ED secondary to lack of appetite and
fatigue over the past 2 days, along with shortness of breath this afternoon. Denies chest pain. Denies fever or chills. Denies coughing. Denies headache or dizziness. Denies vomiting or diarrhea. Denies leg pain or swelling. Denies back pain.
Denies significant weight changes recently.
Past History
Past History
ED Past Medical History: HTN, Hypercholesterolemia, NIDDM, Hypothyroidism, Other (UTI with septicemia) and Other (Adrenal insufficiency, severe aortic stenosis)
ED Past Surgical History: Other (Skin excision)
Social History
Tobacco: Smoker
Alcohol: None
Drug: None
Personal:
Living: with family
Employment: Retired
Family History
Family History: Other (Noncontributory)
Review of Systems
Review of Systems
Allergies reviewed?: Yes
All Other Systems: ROS reviewed and negative except as documented in HPI and ROS
Constitutional: Reports no symptoms
EENT: Reports no symptoms
Respiratory: Reports trouble breathing; Denies cough
Cardiac: Reports no symptoms; Denies chest pain or palpitations
ABD/GI: Reports no symptoms; Denies vomiting or diarrhea
Musculoskeletal: Reports no symptoms
Skin: Reports no symptoms
Neurological: Reports weakness (Generalized weakness)
Phy Exam
Physical Exam
Physical Exam:
Physical Exam
General: mild distress, not acutely ill. afebrile. weak appearing
Head: nc/at. eomi
Neck: supple. no meningeal signs.
Heart: s1/s2 regular rate and rhythm
Lungs: no acute respiratory distress. clear bilaterally
Abdomen: normal bowel sounds. not tender.
Neuro: alert and oriented x 3. no focal neurological deficits
Skin: no rash. well healing surgical scar noted over right anterior chest wall and sternum
Psychiatric: well kept. interactive and cooperative
Extremities: no edema. no calf tenderness.
Scores
Heart Failure Risk
Heart Failure Risk Score: Not Applicable
Course
Orders/Labs/Results
Orders:
Orders
06/08/25 15:58
EKG [Electrocardiogram (*1)] Urgent
Reason for Study: Shortness of Breath
EKG- Treatment ONCE
06/08/25 16:13
Chest [CR Chest - 2 Views ] Urgent
Comment:
Reason For Exam: sob for a few days. recent cardiac sx
06/08/25 16:18
Complete Blood Count/With Diff Urgent
Comprehensive Metabolic Panel Urgent
Free T4 Urgent
Magnesium Urgent
Comment: ADDON
NT-proBNP Urgent
Prothrombin Time Urgent
Serum Osmolality Urgent
Comment: ADDON
TSH Reflex To Free T4 Urgent
Comment: ADDON
Troponin I Urgent
06/08/25 17:22
Add On- LAB Urgent
Tests Added?: serum osm, magnesium, TSH to reflex free T4
06/08/25 18:15
0.9% Sodium Chloride 250 ml [Nss] 250 ml IV BOLUS
Albuterol Nebs [Ventolin Nebules] 2.5 mg INH R NOW STA
06/08/25 18:16
Admit Patient As Directed
Co-Sign Provider:
Level of Care: Observation services
Assign to:: IVU
Physician / Group: Calderon Ponce
Diagnosis: hyponatremia
Reason for Hospitalization: IV fluids, pulmonary toilet
Pneumatic Compression Sleeves As Directed
Type: Knee high
PRN Pain Medication Management As Directed
May give lesser potent ordered pain med per pt: Yes
preference::
Protocol:: Medication orders for pain may be administered in a
manner that supports deferring to patient preference
when the pt is:
- Requesting an ordered lesser potent pain medication.
Least to most potent pain medications are defined
as: acetaminophen < NSAID < tramadol < opioids
(morphine, oxycodone, hydromorphone).
- Requesting a lesser dose of the same medication IF
ORDERED.
- Requesting a less intrusive route of administration
if both routes are prescribed by the provider (PO <
IV).
06/08/25 18:17
DX Deep Vein Thrombosis Video Routine
06/08/25 18:22
Code Status As Directed
Resuscitation Status: Full Code
Bisacodyl [Dulcolax] 10 mg RECTAL [id number] PRN
Docusate W/Senna [Senokot-S] 1 tablet PO BIDPRN PRN
Polyethylene Glycol Powder [Miralax] 17 grams PO DAILYPRN PRN
Activity As Directed
Activity Level: Out of Bed-Early Mobility
Intake/ Output As Directed
Frequency: q12h
Vital Signs As Directed
Frequency: Per unit guidelines
Weight As Directed
Frequency: Daily
O2 Therapy [RESP] Routine
Nasal Cannula Liter Flow: 2 LPM
Titrate/Wean O2 to maintain O2 sat greater than (%): 90
Wean Oxygen to Pre Admission Baseline Therapy-if applicable: Yes
Contact provider if nasal cannula O2 requirement > 6 liters: Yes
Rx Incentive Spirometry [RESP] Routine
Frequency: q1h while awake
# of times per hour: 10
06/08/25 19:09
Osmolality, Random Urine Urgent
Date Specimen was Collected: 06/08/25
Time Specimen was Collected: 18:39
Urinalysis Reflex To Culture Urgent
Date Specimen was Collected: 06/08/25
Time Specimen was Collected: 18:39
Urine Microscopic Reflex Cult Urgent
Urine Sodium Urgent
Date Specimen was Collected: 06/08/25
Time Specimen was Collected: 18:39
Urine Culture Urgent
FRANCIA Source: U
Specimen Description:
Date Specimen was Collected: 06/08/25
Time Specimen was Collected: 18:39
06/08/25 19:40
Furosemide [Lasix] 40 mg IV NOW STA
06/08/25 19:41
Incentive Spirometry [Rx Incentive Spirometry] [RESP] Routine
Frequency: q1h while awake
# of times per hour: 10
06/09/25 Breakfast
Cholesterol Lowering
At Your Request: Full Participation
Does patient need a safe tray?: No
Cholesterol Lowering: Sodium, 2 Gram
Complete Blood Count/No Diff IN AM
Magnesium IN AM
Abnormal Lab Results
06/08/25 06/08/25
16:18 19:09
WBC 16.5 H 10^3/uL
(4.8-10.8)
RBC 3.30 L 10^6/uL
(4.20-5.40)
Hgb 10.4 L g/dL
(12.0-16.0)
Hct 30.3 L %
(37.0-47.0)
MCH 31.5 H pg
(27.0-31.0)
RDW 16.3 H %
(11.5-14.5)
Plt Count 418 H 10^3/uL
(130-400)
MPV 11.0 H fL
(7.4-10.4)
Abs Immat Gran (auto) 0.2 H 10^3/uL
(0-0.05)
Absolute Neuts (auto) 12.5 H 10^3/uL
(1.4-6.5)
Absolute Monos (auto) 1.1 H 10^3/uL
(0.1-0.6)
Immature Gran % 0.9 H %
(0-0.5)
Neutrophils % 76.0 H %
(42.2-75.2)
Lymphocytes % 14.3 L %
(20.5-51.1)
Sodium 125 L mmol/L
(135-145)
Chloride 93 L mmol/L
(98-107)
Glucose 147 H mg/dl
(70-99)
Serum Osmolality 261 L mOsm/kg
(275-300)
Troponin I 0.070 H* ng/ml
TSH (Reflex) < 0.02 L uIU/ml
(0.47-4.68)
Ur Occult Blood Reflex 2+ A
(Negative)
Leukocyte Esterase Rfl 3+ A
(Negative)
Urine RBC 3-6 A /HPF
(0-2)
Urine WBC (Reflex) 80-90 A /HPF
(0-5)
Urine Bacteria (Reflex) Many A
(Negative)
Urine Osmolality 168 L mOsm/kg
(300-900)
Urine Sodium 27 L mmol/L
(30-90)
Urine Glucose 4+ A
(Negative)
06/08/25 16:18
06/08/25 16:18
Vital Signs
Initial and Last Documented VS:
Initial Vital Signs
Temp Pulse Resp BP Pulse Ox
98.7 F 78 24 116/60 95
06/08/25 16:06 06/08/25 16:06 06/08/25 16:06 06/08/25 16:06 06/08/25 16:06
Last Documented Vital Signs
Temp Pulse Resp BP Pulse Ox
98.8 F 81 18 119/70 96
06/08/25 22:00 06/08/25 22:00 06/08/25 22:00 06/08/25 21:48 06/08/25 22:00
MDM/Problems Addressed
MDM/Problems Addressed:
Blood work reviewed, significant for hyponatremia, likely secondary to poor oral intake with dehydration. Doubt fluid overload. As such, patient will be provided with gentle hydration.
Chest x-ray report reviewed and discussed with patient and spouse. Albuterol inhaler ordered.
Patient will be admitted under CT surgery, Dr. Ponce, service for further evaluation and treatment.
*Pulse Oximetry
SaO2: 95
Oxygen Mode of Delivery: Room air
Patient hypoxic: no
*EKG
Interpreted by ED Provider?: Yes
EKG Intrepretation Date: 06/08/25
Heart Rate: 73
Rate: normal
Rhythm: sinus
[place]: normal axis
QRS Pattern: right bundle branch block
*Critical Care Note
Total Time (30-74mins, 75-104mins- exclusive of procedures): Not Applicable
ED Attending Note
-
Portions of this chart may have been created with voice recognition software.� Occasional wrong word or��sound alike� substitutions may have occurred due to the inherent limitations of voice recognition software.
Discharge Plan
Departure
Patient Disposition: Admit
Date of Disposition: 06/08/25
Time of Disposition: 18:19
Admit to: Telemetry
Presentation/result/management discussed w/ accepting MD/DO:
Discharge Problem:
Hyponatremia, Dyspnea
Interventions
Interventions:
*Risk Screen - Suicide Last Done: 06/08/25 16:06
*General Assessment Last Done: 06/08/25 16:06
*Neglect/Abuse Screening Last Done: 06/08/25 18:00
*ED- Fall Risk Assessment Last Done: 06/08/25 18:00
*Nursing Disposition Last Done: 06/08/25 22:03
ED- Cardiac Assessment Last Done: 06/08/25 19:00
ED- Pulmonary Assessment Last Done: 06/08/25 19:00
Discharge Date and Time
Discharge Date/Time: 06/08/25 22:08
[2025-06-08 18:01] LABS: Magnesium 1.6 mg/dl (1.6-2.3)
--- NOTE | 2025-06-08 18:18 | HPS.HSE ---
Family Physician
-
Family Physician: Kavitha Escalera
Chief Complaint
-
fatigue, anorexia, shortness of breath
History of Present Illness
Anjelica Newman is a 69-year-old female known to CT surgery from recent admission on 05/27/2025 for aortic valve replacement with number 25 mm Inspira's tissue valve and root enlargement by Dr. Calderon Ponce. On postoperative day #1, patient was noted to
have repetitive speech and word finding difficulty. A stroke alert was called and patient was sent to CAT scan with [facility] neurovascular assessment. Patient was transferred to [facility] on 05/29/25 and underwent TCAR. Patient was discharged 4 days ago
and presents to ED swith a 2 day history of anorexia and fatigue. She reports shortness of breath this afternoon. Denies chest pain, LE edema, fever/chills, headache or dizziness. Patient examined while in the emergency room and comfortable lying
in the 45 degree angle. Sodium was 125 and BNP greater than 1800. Blood pressure stable in sinus rhythm on patient monitor
Medical History
Past Medical History
Past Medical History: Reports CVA (s/p TCAR 05/2025), HTN, Hypercholesterolemia, Hypothyroidism, NIDDM (A1c 7.1) and Other (adrenal insufficiency, hypothyroidism)
Past Surgical History: Reports Cardiac (AVR w/root enlargement 05/27/25) and Other (colovesicular repair,)
Social History
Tobacco: Former Smoker (45 pk/yr-quit 2022)
Alcohol: Former (1 bottle wine/night until 09/2024)
Drug: None
Personal:
Living: With Family
Employment: Retired
Family History
Family History: Not pertinent
Allergies / Home Medications
Allergies reflects when Allergies were last updated in [place]
Allergies
Allergy/AdvReac Type Severity Reaction Status Date / Time
No Known Allergies Allergy Verified 05/20/25 14:45
ditech.
Home Medications with original date entered in [facility]
Allergy/Medication List:
Home Medications
�Medication �Instructions �Recorded
furosemide 20 mg tablet 20 mg PO DAILY Fluid 03/04/23
retention/Swelling
hydrocortisone 10 mg tablet 20 mg PO DAILY Anti-inflammatory 03/04/23
rosuvastatin 5 mg tablet (Crestor) 5 mg PO QPM High Cholesterol 09/12/24
levothyroxine 75 mcg tablet 75 mcg PO DAILY Thyroid 09/17/24
(Synthroid)
Lactobac no.2-Bifidobac no.1-S. 1 cap PO DAILY Supplement ##0 03/21/25
thermo 112.5 billion cell capsule
(Visbiome)
aspirin 81 mg chewable tablet 81 mg PO DAILY Heart 05/04/25
Disease/Condition
lisinopril 5 mg tablet 10 mg PO DAILY Blood Pressure 05/04/25
pantoprazole 40 mg tablet,delayed 40 mg PO DAILY Gastrointestinal 05/04/25
release Issue
methenamine hippurate 1 gram tablet 1 g PO BID #30 tabs 05/08/25
blood sugar diagnostic (Contour ##100 05/28/25
Next Test Strips)
dapagliflozin propanediol 10 mg 10 mg PO DAILY #30 tabs 05/28/25
tablet (Farxiga)
lancets 21 gauge (Color Lancets) ##100 05/28/25
metformin 500 mg tablet 500 mg PO BID@0800,1700 #60 tabs 05/28/25
carvedilol 12.5 mg tablet (Coreg) 12.5 mg PO BID 06/08/25
clopidogrel 75 mg tablet 75 mg PO DAILY 06/08/25
multivitamin 1 tab PO DAILY 06/08/25
oxycodone 5 mg tablet 5 mg PO Q6H PRN pain 06/08/25
rosuvastatin 20 mg tablet 20 mg PO DAILY 06/08/25
sennosides 8.6 mg tablet (senna) 8.6 mg PO BID PRN constipation 06/08/25
Review of Systems
-
A 12 point ROS was completed and negative except as noted: Yes
Physical Exam
Vital Signs
Vital Signs
Temp Pulse Resp BP Pulse Ox
98.7 F 78 24 116/60 95
06/08/25 16:06 06/08/25 16:06 06/08/25 16:06 06/08/25 16:06 06/08/25 17:57
Physical Exam
General: Well Developed, Well Nourished, No Apparent Distress, Comfortable, Conversant and Poor Appetite
HEENT: NormoCephalic, Anicteric, Moist mucous membranes and PERRLA
Respiratory: Clear
Cardiac: S1/S2 and Regular Rhythm
Breast: Deferred by me
GI: Soft, Non Tender, Non Distended and Normal Bowel Sounds
Rectal: Deferred by Provider
Genito-urinary: Deferred by me
Musculoskeletal: No Clubbing, No Cyanosis, Edema, Right Upper Extremity (trace ankle) and Edema, Left Lower Extremity (chronic +1)
Skin: Warm and Dry
Neuro: AO x 3, No Motor Deficits and No Sensory Deficits
Hematologic/Lymphatic: No Lymphadenopathy
Psych: Calm and Intact Judgment/Insight
Laboratory Results
-
06/08/25 16:18
06/08/25 16:18
Laboratory Results
PT 14.1 Sec (11.4-14.6) 06/08/25 16:18
INR 1.05 06/08/25 16:18
Total Bilirubin 0.6 mg/dl (0.2-1.3) 06/08/25 16:18
AST 17 U/L (14-36) 06/08/25 16:18
ALT 10 U/L (0-35) 06/08/25 16:18
Alkaline Phosphatase 112 U/L (38-126) 06/08/25 16:18
Troponin I 0.070 ng/ml H* 06/08/25 16:18
Data Reviewed
-
Diagnostic Radiology: Report Reviewed by me and Discussed with Physician
Lab Data: Labs Reviewed by me and Discussed with Physician
Old Records: Reviewed
Impression/Plan
-
IMPRESSION:69-year-old female with recent AVR/root enlargement and subsequent CVA requiring right carotid stenting at [facility], now admitted with fatigue and weakness. Found to be hyponatremic and BNP greater than 1800, trop 0.07 consistent with
ischemic demand /mild heart failure.
- Case discussed with Dr. Ponce
- Admit to IVU under observation status with CT service primary team
- Gentle diuresis with IV Lasix
- Aggressive pulmonary toilet
[2025-06-08] MEDS: VENTOLIN NEBULES 2.5 MG INH (19:12)
[2025-06-08] MEDS: NSS 250 IV (19:16)
[2025-06-08 19:21] LABS: Urine Character Clear (Clear)
[2025-06-08 19:43] LABS: Urine White Cell 80-90 /HPF (0-5)
--- NOTE | 2025-06-08 20:17 | EDRN ---
Report received, introduced myself to patient and medicated patient, patient ambulated to the restroom and back in bed resting comfortably with call chew in reach.
[2025-06-08] MEDS: LASIX 40 MG IV (20:41)
--- NOTE | 2025-06-08 20:43 | EDRN ---
Purwick in place for patients comfort, updated patient on her bed status.
[2025-06-08] MEDS: KCL 20 MEQ PO (23:01)
[2025-06-08] MEDS: CRESTOR 20 MG PO (23:01)
[2025-06-08] MEDS: MAGNESIUM SULFATE 102 GRAMS IV (23:01)
--- NOTE | 2025-06-08 23:10 | RESPNOTE ---
Pt declined IS therapy at this time. Pt wishes it to be done in the morning
[2025-06-08 23:11] LABS: Glucose - Point of Care 138 mg/dl (70-99)
[2025-06-09] VITALS (9 sets, daily range): BP systolic 86–143; BP diastolic 39–69; BMI 29.3
--- NOTE | 2025-06-09 02:37 | PTCARENOTE ---
Rec'd pt as admission from ED. Pt AAO*3, VSS, and SR on TELE monitor. Pt denies any pain or discomfort. Pt oriented to unit. PMHx of TIA, NIH 0, swallow screen passed/negative, AAO*3, and able to move all extremities appropriately. Pt updated
on plan of care and now resting with call chew in reach. See MAR and flowchart for full pt care and assessment.
[2025-06-09] MEDS: SYNTHROID 75 MCG PO (04:13)
[2025-06-09] MEDS: TYLENOL 650 MG PO ×3 (04:13→20:34)
[2025-06-09 04:28] LABS: Hematocrit 31.1 % (37.0-47.0); Hemoglobin 10.7 g/dL (12.0-16.0); Mean Corp Hgb Conc. 34.4 g/dL (33.0-37.0); Mean Corpuscular Volume 93.1 fL (81.0-99.0); Platelet Count 446 10^3/uL (130-400); Red Cell Dist. Width 16.7 % (11.5-14.5)
[2025-06-09 04:47] LABS: Blood Urea Nitrogen 11 mg/dl (7-17); Calcium 8.6 mg/dl (8.4-10.2); Carbon Dioxide 25 mmol/L (22-30); Chloride 101 mmol/L (98-107); Estimated Creatinine Clearance 87 ml/min; Glucose 101 mg/dl (70-99); Magnesium 2.3 mg/dl (1.6-2.3); Potassium 4.5 mmol/L (3.5-5.1); Sodium 134 mmol/L (135-145); eGFR > 60.00
[2025-06-09 05:14] LABS: Cortisol, Random 1.5 ug/dl
--- NOTE | 2025-06-09 07:55 | PTCARENOTE ---
Assumed care of pt from prev nsg shift; Pt AAOx3 w/no c/o CP or SOB. Pt's VSS w/HR in the 80's & BP 120/69 this AM. Pt is SR w/R BBB on telemetry monitoring. Pt assisted OOB to chair for breakfast this AM & pt is a minimal contact guard assist. Pt
w/call chew within reach & plan of care ongoing.
[2025-06-09] MEDS: HYDROCORTONE/CORTEF 20 MG PO (08:54)
[2025-06-09] MEDS: SENOKOT 8.6 MG PO ×2 (08:54→20:34)
[2025-06-09] MEDS: ASPIR LOW (ENTERIC COATED) 81 MG PO (08:54)
[2025-06-09] MEDS: PLAVIX 75 MG PO (08:54)
[2025-06-09] MEDS: HIPREX 1 GRAM PO ×2 (08:54→20:34)
[2025-06-09] MEDS: COREG 12.5 MG PO (08:54)
[2025-06-09] MEDS: PROTONIX 40 MG PO (08:54)
[2025-06-09] MEDS: VISBIOME 1 CAP PO (08:54)
[2025-06-09] MEDS: GLUCOPHAGE 500 MG PO (08:54)
[2025-06-09] MEDS: LASIX 20 MG IV (08:55)
[2025-06-09] MEDS: KCL 10 MEQ PO (08:55)
[2025-06-09] MEDS: FLUSH (NSS) 2 FLUSH IV (08:55)
[2025-06-09] MEDS: FARXIGA 10 MG PO (08:56)
--- NOTE | 2025-06-09 10:57 | PTCARENOTE ---
At approx 1030, pt called for nurse stating she 'didn't feel well' & 'felt nauseous'. Pt assisted back to bed from chair & given a basin. Pt took AM meds a little over an hour ago after having a large coffee & half a muffin. Spoke w/CT surgery PA &
order rec'd for PRN PO Zofran. Pt doesn't think she can take a pill right now. Pt given some gingerale to sip, ice chips, & an alcohol swab. BP checked & pt RUE 86/39 & LUE 86/54. CT PA notified & will be in to see pt.
--- NOTE | 2025-06-09 11:11 | CM ---
Chart reviewed. Patient is independent of ADLS, lives with her in a [address], [facility], ambulates with a RW and also has a SPC at home if needed. Plan is for the patient to return home. CM to follow
[2025-06-09 11:24] LABS: Glucose - Point of Care 212 mg/dl (70-99)
--- NOTE | 2025-06-09 11:43 | W.PN.URO.CBU ---
Today's Communication / Plan
-
obtauin urine cx ans adrianna u/s home with hipprex
Assessment / Plan
-
would not teat asx nbacteruria will obtai adrianna u/s to ceck abscess but may need ct scan homw on methenamine gm po bid may need estrogen for rprophylaxis
Diagnosis
-
Date of Service: June 09, 2025
-
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
Post Op Day:
Subjective
-
no gu complaints
Objective
-
Vital Signs
Temp Pulse Resp BP Pulse Ox
97.9 F 71 18 87/42 94
06/09/25 11:26 06/09/25 11:20 06/09/25 11:26 06/09/25 11:20 06/09/25 11:26
Intake and Output
06/08/25 06/09/25 06/10/25
06:59 06:59 06:59
Intake Total 240 / 240
Output Total 1300 / 1300 500 / 500
Balance -1060 / -1060 -500 / -500
Intake:
Oral fluids 240 / 240
Output:
Urine, Voided 1300 / 1300 500 / 500
Other:
How many times incontinent 1
MODERATE amount urine
Laboratory Results
06/09/25 03:59
06/09/25 03:59
Review of Systems
-
: No Symptoms
Physical Exam
-
General - well developed, well nourished, no acute distress
Chest - clear bilaterally
Abdomen - soft, non-tender, positive bowel sounds, no CVAT, no incisional pain or distention
Genitalia - normal
Rectal - normal
Skin - warm & dry with no rash
Neuro - AOx3, no motor deficits
Extremities - no clubbing, no cyanosis, no edema
Incision - clean, dry
Dressing - clean, dry, intact
Counseling
-
no changes
Care Review
Data Reviewed
Discussed with: Nursing, Family and Other (ct surgery)
Ultrasound: Image Pers Reviewed
[2025-06-09 17:04] LABS: Glucose - Point of Care 161 mg/dl (70-99)
[2025-06-09] MEDS: CRESTOR 20 MG PO (17:52)
[2025-06-09] MEDS: GLUCOPHAGE PO (17:53)
--- NOTE | 2025-06-09 20:07 | CON.ID ---
Consultation
-
Date/Time Consultation Requested: 06/09/25
Date/Time Consultation Performed: 06/09/25
Requesting Provider: Dr Levi
Performing Provider: Dr Du
Reason for Consultation: UTI after recent aortic valve replacenment with ICU monitoring
Chief Complaint / Past History
Chief Complaint
The patient has minimal complaints but has a generalized feeling malaise and fatigue with a generalized feeling of being unwell without appetite or strength to do much of anything
History of Present Illness
The patient describes a history of chronic UTI without obvious cause with at least 2 to 3 UTI yearly. She has no known kidney, bladder or other cause and denies nephrolithiasis or structural abnormality of bladder or ureters
Past History
Past Medical History: CVA, Hypercholesterolemia, Hypothyroidism, NIDDM and Other (diverticulitis, aortic valve replacement , TCAR)
Past Surgical History: Cardiac (AV replacement with TCAR)
Allergy History:
No Known Allergies Allergy (Verified 05/20/25 14:45)
Medications Reviewed: Yes
Social History
Tobacco: Former Smoker
Alcohol: Former
Drug: None
Review of Systems
Review of Systems
General: Change in Appetite (malaise)
HEENT: Other (denies)
Cardiovascular: Other (denies)
Respiratory: Other (denies)
Gasteroenterology: Other (no appetite)
Genital / Urological: Other (denies )
Endocrine: Weakness and Fatigue
All systems: All other systems were reviewed and were negative
Vital Signs
Temp Pulse Resp BP Pulse Ox
98.8 F 63 18 97/56 96
06/09/25 19:21 06/09/25 15:30 06/09/25 19:21 06/09/25 14:03 06/09/25 19:21
Physical Exam
Physical Exam
Constitutional: No Acute Distress, Well Developed, Comfortable, Chronically Ill and Non-toxic
Head: Normocephalic
Eyes: Pupils Equal, Pupils Round, No Conjunctival Hemorrhage and Sclera Anicteric
Pharynx: Benign
Oral: No Thrush and No Ulcers
Cardiovascular: Regular Rate
Pulmonary: Clear and Non Labored
Gastrointestinal: Soft, Non Tender, Non Distended and Decreased Bowel Sounds
Extremities: Pulses (present /equal)
Skin: Warm and Dry
Wound: Other (cardiac with some bruising chest)
Neurological: Awake, Alert, Oriented, AO x 3 (gait not observed) and No Motor Deficits
Psychological: Calm (flat affect , answered questions, cooperative)
Lab / Diagnostic Study Results
06/09/25 03:59
06/09/25 03:59
Abs Immat Gran (auto) 0.2 10^3/uL (0-0.05) H 06/08/25 16:18
Absolute Neuts (auto) 12.5 10^3/uL (1.4-6.5) H 06/08/25 16:18
Absolute Lymphs (auto) 2.4 10^3/uL (1.2-3.4) 06/08/25 16:18
Absolute Monos (auto) 1.1 10^3/uL (0.1-0.6) H 06/08/25 16:18
Absolute Basos (auto) 0.2 10^3/uL (0-0.2) 06/08/25 16:18
Immature Gran % 0.9 % (0-0.5) H 06/08/25 16:18
Neutrophils % 76.0 % (42.2-75.2) H 06/08/25 16:18
Lymphocytes % 14.3 % (20.5-51.1) L 06/08/25 16:18
Monocytes % 6.6 % (1.7-9.3) 06/08/25 16:18
Eosinophils % 0.9 % (0-6) 06/08/25 16:18
Basophils % 1.3 % (0-2) 06/08/25 16:18
PT 14.1 Sec (11.4-14.6) 06/08/25 16:18
INR 1.05 06/08/25 16:18
Ur Squamous Epith Cells 3-5 /LPF (Few) 06/08/25 19:09
Microbiology Results
Micro:
06/09/25 16:24 Blood Culture - Pending
Blood/Venous
06/09/25 15:49 Blood Culture - Pending
Blood/Venous
06/08/25 19:09 Urine Culture - Pending
Urine
Assessment / Plan
1. Leukocytosis with left shift without fever this Am with repeat WBC decreased from 16.5 to 11.0
2. CXR trace pleural effusion no SOB, cough, sputum
3. UA abnormal with LE3+,blood2+, WBC 80 to 90, many bacteria, no dysuria, no flank tenderness on Hipprex under urology care, culture pending, advise no antibiotic now, renal US unremarkable
4. Recent aortic valve replacement with blood cultures pending
5. Monitor carefully with follow up blood culture results with rapid initiation of antibiotic with change in condition
6. At this time patient with minimal complaints but with concerning findings
Care Review
Total Time Spent with Patient (in minutes): 45
--- NOTE | 2025-06-09 21:21 | PTCARENOTE ---
Rec'd pt at change of shift. Pt AAO*3 but flat/withdrawn. Pt reports being 'tired of being in the hospital.' VSS and SR on TELE monitor. Pt reported chronic lower back pain and given PRN Tylenol as ordered. Pt resting with call chew in reach.
See MAR and flowchart for full pt care and assessment.
[2025-06-09 22:14] LABS: Glucose - Point of Care 131 mg/dl (70-99)
[2025-06-10] VITALS (10 sets, daily range): BP systolic 98–138; BP diastolic 46–72; BMI 29.3
[2025-06-10] MEDS: SYNTHROID 75 MCG PO (03:15)
[2025-06-10] MEDS: TYLENOL 650 MG PO ×3 (03:15→19:58)
[2025-06-10 04:25] LABS: Hematocrit 31.1 % (37.0-47.0); Hemoglobin 10.5 g/dL (12.0-16.0); Mean Corp Hgb Conc. 33.8 g/dL (33.0-37.0); Mean Corpuscular Volume 95.7 fL (81.0-99.0); Nucleated Red Blood Cells % 0 %; Platelet Count 433 10^3/uL (130-400); Red Cell Dist. Width 17.2 % (11.5-14.5)
[2025-06-10 04:41] LABS: ALT (SGPT) 12 U/L (0-35); AST (SGOT) 18 U/L (14-36); Albumin 3.7 g/dl (3.5-5.0); Alkaline Phosphatase 118 U/L (38-126); Blood Urea Nitrogen 20 mg/dl (7-17); Calcium 8.5 mg/dl (8.4-10.2); Carbon Dioxide 26 mmol/L (22-30); Chloride 97 mmol/L (98-107); Estimated Creatinine Clearance 58 ml/min; Glucose 88 mg/dl (70-99); Potassium 4.1 mmol/L (3.5-5.1); Sodium 132 mmol/L (135-145); Total Protein 6.5 g/dl (6.3-8.2); eGFR > 60.00
--- NOTE | 2025-06-10 04:44 | W.PN.CT ---
Addendum entered and electronically signed by Calderon Ponce MD 06/10/25 08:46:
I saw and examined the patient.
The PA's note was reviewed and I agree with the note.
Comment:
With new fresh valve, low threshold for abx. BP seems better with change in meds. Will see if she can tolerate some diuresis today.
Original Note:
Today's Communication / Plan
-
- await culture results, rapid initiation of antibiotic with change in condition
- 1200cc /24h fluid restriction
Assessment / Plan
-
Readmit 06/08 for Hyponatremia and heart failure (BNP 1859)/volume overload s/p AVR/root enlargement 05/27/25 (Dr Ponce)
1. Hypertension
2. Hyperlipidemia
3. Hypothyroidism
4. Diabetes (A1c 7.1)-oral therapy
5. Adrenal insufficiency on chronic steroid
6. Hypothyroidism
7. Aortic stenosis
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
9. postop CVA s/p R carotid stent (TCAR @ [facility] 05/2025)
- Hyponatremia
- Heart failure (BNP 1859)
- leukocytosis
Subjective
Procedure
- BP improved, still feels 'unwell and fatigued'
-
Date of Service: June 10, 2025
Objective Data
-
Lab Results
06/10/25 03:38
06/10/25 03:38
PT 14.1 Sec (11.4-14.6) 06/08/25 16:18
INR 1.05 06/08/25 16:18
Vital Signs
Vital Signs
Temp Pulse Resp BP Pulse Ox
97.5 F 73 16 138/59 98
06/10/25 03:28 06/10/25 03:28 06/10/25 03:28 06/10/25 03:28 06/10/25 03:28
CT Intake/Output/Weight
06/09/25 06/09/25 06/10/25
06:59 18:59 06:59
Intake Total 240 / 240 240 / 240
Output Total 1300 / 1300 500 / 700 200 / 700
Balance -1060 / -1060 -500 / -460 40 / -460
SaO2: 98
Physical Exam
-
General: AOx3
Cardiovascular: Regular rate & rhythm
Respiratory: Clear
Sternum: Stable
Incision: Other (median sternotomy and Right carotid incision C/D/I)
Extremities: No Edema
Data Reviewed
-
Lab Results: Results Reviewed
Medications: Active Meds Reviewed
Chest X-Ray: Image Reviewed
[2025-06-10 05:24] LABS: Free T3 2.50 pg/ml (2.77-5.27)
--- NOTE | 2025-06-10 08:20 | PTCARENOTE ---
Assumed care of pt from prev nsg shift; Pt AAOx3 w/no c/o CP or SOB. Pt's VSS w/HR in the 70's & BP 108/56 this AM. Pt is SR w/R BBB on telemetry monitoring. Pt reports 'still feeling exhausted & unwell', states she 'didn't sleep all night'. Given
PRN PO Tylenol as ordered & IV Zofran for nausea this AM. Pt w/call chew within reach & plan of care ongoing.
[2025-06-10] MEDS: ASPIR LOW (ENTERIC COATED) 81 MG PO (08:52)
[2025-06-10] MEDS: PROTONIX 40 MG PO (08:52)
[2025-06-10] MEDS: FLUSH (NSS) 2 FLUSH IV (08:52)
[2025-06-10] MEDS: ZOFRAN 4 MG IV (08:52)
[2025-06-10] MEDS: LASIX 20 MG IV (08:52)
[2025-06-10] MEDS: PLAVIX 75 MG PO (08:52)
[2025-06-10] MEDS: SENOKOT PO ×2 (08:53→19:59)
[2025-06-10] MEDS: VISBIOME 1 CAP PO (08:53)
[2025-06-10] MEDS: GLUCOPHAGE 500 MG PO ×2 (09:51→18:47)
[2025-06-10] MEDS: FARXIGA 10 MG PO (09:51)
[2025-06-10] MEDS: TOPROL XL 12.5 MG PO (09:51)
[2025-06-10] MEDS: AUGMENTIN 875 MG/125 MG 1 TABLET PO ×2 (09:52→19:59)
[2025-06-10] MEDS: HYDROCORTONE/CORTEF 20 MG PO (09:52)
[2025-06-10] MEDS: HIPREX 1 GRAM PO ×2 (09:52→19:58)
--- NOTE | 2025-06-10 10:19 | CM ---
Chart reviewed. Patient is independent of ADLS, lives in a 2 [facility], 2 [facility], ambulates with a RW and also has a SPC. Patient is still under observations status. CM to follow
--- NOTE | 2025-06-10 12:25 | W.PN.URO.CBU ---
Today's Communication / Plan
-
when d/c needs rx foer methenamine 1 gm po bid
Assessment / Plan
-
would not teat asx nbacteruria rnal and bladder u/s no revesible sources of bacteruria no abscess home on methenamine gm po bid may need estrogen for rprophylaxis follow up at office forprophlaxis possible estrgen
Diagnosis
-
Date of Service: June 10, 2025
-
Patient Diagnosis:
Post Op Day:
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
Post Op Day:
Subjective
-
no gu sxs
Objective
-
Vital Signs
Temp Pulse Resp BP Pulse Ox
98.5 F 80 18 108/56 96
06/10/25 11:18 06/10/25 11:18 06/10/25 11:18 06/10/25 08:13 06/10/25 11:18
Intake and Output
06/09/25 06/10/25 06/11/25
06:59 06:59 06:59
Intake Total 240 / 240 240 / 240
Output Total 1300 / 1300 700 / 700
Balance -1060 / -1060 -460 / -460
Intake:
Oral fluids 240 / 240 240 / 240
Output:
Urine, Voided 1300 / 1300 700 / 700
Other:
Number of approximated MODERATE 1
amounts of urine
How many times incontinent 1
MODERATE amount urine
Laboratory Results
06/10/25 03:38
06/10/25 03:38
Review of Systems
-
: No Symptoms
Physical Exam
-
General - well developed, well nourished, no acute distress
Chest - clear bilaterally
Abdomen - soft, non-tender, positive bowel sounds, no CVAT, no incisional pain or distention
Genitalia - normal
Rectal - normal
Skin - warm & dry with no rash
Neuro - AOx3, no motor deficits
Extremities - no clubbing, no cyanosis, no edema
Incision - clean, dry
Dressing - clean, dry, intact
Counseling
-
per ct
Care Review
Data Reviewed
Ultrasound: Image Pers Reviewed
[2025-06-10 17:50] LABS: Glucose - Point of Care 201 mg/dl (70-99)
[2025-06-10] MEDS: CRESTOR 20 MG PO (18:47)
--- NOTE | 2025-06-10 21:42 | W.PN.ID1 ---
Date of Service
Date of Service: June 10, 2025
Today's Communication
Microbiology
Assessment / Plan
1. Leukocytosis with left shift without fever this Am with repeat WBC decreased
2. CXR trace pleural effusion no SOB, cough, sputum
3. UA abnormal with LE3+,blood2+, WBC 80 to 90, many bacteria, no dysuria, no flank tenderness on Hipprex under urology care, culture pending, advise no antibiotic now, renal US unremarkable
4. Recent aortic valve replacement with blood cultures pending
5. Monitor carefully with follow up blood culture results with rapid initiation of antibiotic with change in condition
6. At this time patient with minimal complaints but with concerning findings
7. Urine cultures with GNR possible Klebs with final result tomorrow
Chief Complaint
-: UTI
Subjective / Review of Systems
Review of Systems: No Fever, No Chills, No Headache, No Pharyngitis, No Stiff Neck, No Swollen Lymph Nodes, No Cough, No Sputum Production, No Chest Pain, No Palpitations, No Abdominal Pain, Nausea, No Vomiting, No Diarrhea, No Dysuria, No Joint
Pain and No Skin Rash (malaise and fatigue a bit less today)
Vital Signs / Physical Exam
Vital Signs
Vital Signs
Temp Pulse Resp BP Pulse Ox
98.5 F 75 18 104/55 97
06/10/25 19:25 06/10/25 19:25 06/10/25 19:25 06/10/25 15:42 06/10/25 21:28
Physical Exam
Constitutional: No Acute Distress, Comfortable, Chronically Ill and Non-toxic
Head: Normocephalic
Eyes: Pupils Equal, Pupils Round, No Conjunctival Hemorrhage and Sclera Anicteric
Oropharyngeal: Benign
Cardiovascular: Regular Rate (Sternal wound well healed)
Pulmonary: Clear and Non Labored
Gastrointestinal: Soft, Non Tender, Non Distended and Decreased Bowel Sounds
Extremities: Pulses (normal)
Skin: Warm and Dry
Wound: Other (well healed and clean)
Neurological: Awake, Alert, Oriented and AO x 3 (gait not observed although patient stated that she did walk in snider today)
Psychological: Calm (conversant more interactive today)
Objective Data
Lab Data
Lab Results
06/10/25 03:38
06/10/25 03:38
PT 14.1 Sec (11.4-14.6) 06/08/25 16:18
INR 1.05 06/08/25 16:18
Estimated Creat Clear 58 ml/min 06/10/25 03:38
Total Bilirubin 0.4 mg/dl (0.2-1.3) 06/10/25 03:38
AST 18 U/L (14-36) 06/10/25 03:38
ALT 12 U/L (0-35) 06/10/25 03:38
Alkaline Phosphatase 118 U/L (38-126) 06/10/25 03:38
Most recent labs reviewed.
Microbiology: Report Reviewed and Discussed w/ Micro (looks like Klebsiella with final report pending per Micro)
Micro Results:
06/09/25 16:24 Blood Culture - Preliminary
Blood/Venous No Growth in 24 hours- Final report to follow
06/09/25 15:49 Blood Culture - Preliminary
Blood/Venous No Growth in 24 hours- Final report to follow
06/08/25 19:09 Urine Culture - Preliminary
Urine Gram negative bacilli
Care Review
Plan reviewed with: Other (microbiology)
Total Time Spent with Patient (in minutes): 35
[2025-06-10 21:59] LABS: Glucose - Point of Care 159 mg/dl (70-99)
--- NOTE | 2025-06-10 22:48 | PTCARENOTE ---
Rec'd pt at change of shift. PT AAO*3, VSS, and SR on TELE monitor. Pt reported lower back pain and given Tylenol as ordered. PT updated on plan of care and verbalizes understanding. See MAR and flowchart for full pt care and assessment. Pt
resting with call chew in reach. See MAR and flowchart for full pt care and assessment.
[2025-06-11] VITALS (7 sets, daily range): BP systolic 113–147; BP diastolic 50–62; O2SAT 98; BMI 29.7
[2025-06-11] MEDS: TYLENOL 650 MG PO ×4 (02:58→23:43)
[2025-06-11] MEDS: SYNTHROID 75 MCG PO (05:20)
--- NOTE | 2025-06-11 07:57 | W.PN.CT ---
Today's Communication / Plan
-
- await culture results, +UTI, cont antibiotics
- cont diuretics
- awaiting TTE
- todays labs pending, f/u results
- tolerating RA, spo2 99%
Assessment / Plan
-
Readmit 06/08 for Hyponatremia and heart failure (BNP 1859)/volume overload s/p AVR/root enlargement 05/27/25 (Dr Ponce)
1. Hypertension
2. Hyperlipidemia
3. Hypothyroidism
4. Diabetes (A1c 7.1)-oral therapy
5. Adrenal insufficiency on chronic steroid
6. Hypothyroidism
7. Aortic stenosis
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
9. postop CVA s/p R carotid stent (TCAR @ [facility] 05/2025)
- Hyponatremia
- Heart failure (BNP 1859)
- leukocytosis
Discussed patient care with: Care Team
Subjective
Procedure
- BP improved, still feels 'unwell and fatigued', + UTI
-
Date of Service: June 11, 2025
Objective Data
-
Lab Results
06/10/25 03:38
06/10/25 03:38
PT 14.1 Sec (11.4-14.6) 06/08/25 16:18
INR 1.05 06/08/25 16:18
Vital Signs
Vital Signs
Temp Pulse Resp BP Pulse Ox
98.5 F 75 18 104/55 97
06/10/25 19:25 06/10/25 19:25 06/10/25 19:25 06/10/25 15:42 06/10/25 19:25
CT Intake/Output/Weight
06/10/25 06/10/25 06/11/25
06:59 18:59 06:59
Intake Total 240 / 240 480 / 480
Output Total 200 / 700
Balance 40 / -460 480 / 480
SaO2: 97
Physical Exam
-
General: Awake, Oriented and AOx3
Respiratory: Clear and Equal
Sternum: Stable
Incision: Clean, Dry and Intact
Extremities: Edema +1
Data Reviewed
-
Lab Results: Results Reviewed
Medications: Active Meds Reviewed
Chest X-Ray: Image Reviewed
[2025-06-11] MEDS: PLAVIX 75 MG PO (08:00)
[2025-06-11] MEDS: AUGMENTIN 875 MG/125 MG 1 TABLET PO (08:01)
[2025-06-11] MEDS: VISBIOME 1 CAP PO (08:01)
[2025-06-11] MEDS: HYDROCORTONE/CORTEF 20 MG PO (08:02)
[2025-06-11] MEDS: ASPIR LOW (ENTERIC COATED) 81 MG PO (08:03)
[2025-06-11] MEDS: PROTONIX 40 MG PO (08:03)
[2025-06-11] MEDS: SENOKOT 8.6 MG PO ×2 (08:03→19:30)
[2025-06-11] MEDS: HIPREX 1 GRAM PO ×2 (08:04→19:30)
[2025-06-11] MEDS: TOPROL XL 12.5 MG PO ×2 (08:05→11:20)
[2025-06-11 08:21] LABS: Hematocrit 29.9 % (37.0-47.0); Hemoglobin 10.0 g/dL (12.0-16.0); Mean Corp Hgb Conc. 33.4 g/dL (33.0-37.0); Mean Corpuscular Volume 94.9 fL (81.0-99.0); Platelet Count 448 10^3/uL (130-400); Red Cell Dist. Width 16.9 % (11.5-14.5)
[2025-06-11 08:51] LABS: Blood Urea Nitrogen 15 mg/dl (7-17); Calcium 8.7 mg/dl (8.4-10.2); Carbon Dioxide 23 mmol/L (22-30); Chloride 102 mmol/L (98-107); Estimated Creatinine Clearance 87 ml/min; Glucose 94 mg/dl (70-99); Magnesium 2.1 mg/dl (1.6-2.3); Potassium 4.5 mmol/L (3.5-5.1); Sodium 132 mmol/L (135-145); eGFR > 60.00
[2025-06-11] MEDS: GLUCOPHAGE 500 MG PO ×2 (11:19→17:30)
[2025-06-11] MEDS: ROCEPHIN 1000 MG IV (11:19)
[2025-06-11] MEDS: LASIX 40 MG IV (11:19)
[2025-06-11] MEDS: STERILE WATER FOR INJECTION 10 ML IV (11:19)
[2025-06-11] MEDS: FARXIGA 10 MG PO (11:21)
--- NOTE | 2025-06-11 12:03 | CM ---
Chart reviewed. Patient is independent of ADLS, lives with her in a [address] [facility], 2 [facility], ambulates with a RW and also has a SPC at home. Patient is current with [facility]. Referral sent to resume services. Plan is for the patient to
return home with [facility]. CM to follow
[2025-06-11 12:57] LABS: Glucose - Point of Care 193 mg/dl (70-99)
--- NOTE | 2025-06-11 12:58 | PN.CDI ---
CDI
- -
CDI:
Physician Documentation Request
Admit Date: 06/08/25 23:[address] surgery,
Clinical Indicators:
Patient admitted with hyponatremia.
05/27/2025 HERMELINDO report, 'Overall LVEF is approximately 60%'
06/11 PN, 'cont diuretics...heart failure (BNP 1859)/volume overload'
Please provide further specificity regarding the most likely type and acuity of CHF you are evaluating, treating or monitoring.
Acute on chronic HFpEF
Acute HFpEF
Other, please specify
Use of terms such as suspected, likely, concern for, or probable (associated with a specific diagnosis that is being evaluated, monitored, or treated as if it exists) are acceptable and can be coded in the inpatient setting, when documented at the
time of discharge.
Thank you,
ÁNGEL Patel RN
CDI Specialist
available via tiger text
Please use your independent medical judgment in providing your response.
--- NOTE | 2025-06-11 13:05 | PN.CDI ---
CDI
- -
CDI:
Physician Documentation Request
Admit Date: 06/08/25 23:[address] Surgery,
Clinical Indicators:
Patient admitted with hyponatremia/heart failure; PMH AVR/root enlargement on 05/27/25.
8/5 H & P, 'trop 0.07 consistent with ischemic demand /mild heart failure.'
8/5EKG: Normal sinus rhythm Rigth bundle branch block...T wave inversion no longer evident
Troponin on admission:
06/08/25
16:18
Troponin I 0.070 H*
Please clarify the etiology of the troponin elevation:
Non ischemic myocardial injury
Demand ischemia
Other, please specify
Use of terms such as suspected, likely, concern for, or probable (associated with a specific diagnosis that is being evaluated, monitored, or treated as if it exists) are acceptable and can be coded in the inpatient setting, when documented at the
time of discharge.
Thank you,
ÁNGEL Patel RN
CDI Specialist
available via tiger text
Please use your independent medical judgment in providing your response.
--- NOTE | 2025-06-11 17:04 | W.PN.ID1 ---
Date of Service
Date of Service: June 11, 2025
Today's Communication
nurse regarding antibiotic
Assessment / Plan
1. Leukocytosis with left shift without fever this AM
2. CXR trace pleural effusion no SOB, cough, sputum
3. UA abnormal with LE3+,blood2+, WBC 80 to 90, many bacteria, no dysuria, no flank tenderness,growth of Klebsiella > 100 cfu
4. Recent aortic valve replacement with blood cultures pending
5. Monitor carefully with follow up blood culture results with rapid initiation of antibiotic with change in condition
6. At this time patient with minimal complaints but with concerning findings especially fatigue and low energy
7. Ceftriaxone with limited oral options for this patient Continue IV while hospitalized at 1 Gm IV Q 24H for now especially with elevated WBC
Chief Complaint
-: Leukocytosis (Right rib/flank pain with movement but not really on palpation) and UTI
Subjective / Review of Systems
Review of Systems: No Fever, No Chills, No Headache, No Pharyngitis, No Stiff Neck, No Swollen Lymph Nodes, No Cough, No Sputum Production, No Chest Pain, No Palpitations, No Abdominal Pain, No Nausea, No Vomiting, No Diarrhea, No Dysuria and No
Skin Rash
Vital Signs / Physical Exam
Vital Signs
Vital Signs
Temp Pulse Resp BP Pulse Ox
98.7 F 98 18 126/53 98
06/11/25 15:23 06/11/25 13:00 06/11/25 15:23 06/11/25 11:20 06/11/25 15:23
Physical Exam
Constitutional: No Acute Distress, Well Developed, Comfortable, Chronically Ill and Non-toxic (general malaise/fatigue/absolutely no energy)
Head: Normocephalic
Eyes: Pupils Equal, Pupils Round, No Conjunctival Hemorrhage and Sclera Anicteric
Oropharyngeal: Benign
Cardiovascular: Regular Rate
Pulmonary: Clear and Non Labored
Gastrointestinal: Soft, Non Tender, Non Distended, Decreased Bowel Sounds, No Rebound and No Guarding
Extremities: Other (ambulatory short distances, no edema , good ROM)
Musculoskeletal: Other (tenderness right lateral rib cage at base with movement)
Skin: Warm and Dry
Wound: Other (sternal wound well healed)
Neurological: Awake, Alert and Oriented (subdued)
Psychological: Calm (cooperative , answers queries, pleasant)
Objective Data
Lab Data
Lab Results
06/11/25 07:56
06/11/25 07:56
PT 14.1 Sec (11.4-14.6) 06/08/25 16:18
INR 1.05 06/08/25 16:18
Estimated Creat Clear 87 ml/min 06/11/25 07:56
Total Bilirubin 0.4 mg/dl (0.2-1.3) 06/10/25 03:38
AST 18 U/L (14-36) 06/10/25 03:38
ALT 12 U/L (0-35) 06/10/25 03:38
Alkaline Phosphatase 118 U/L (38-126) 06/10/25 03:38
Most recent labs reviewed.
Microbiology: Report Reviewed
Micro Results:
06/09/25 16:24 Blood Culture - Preliminary
Blood/Venous No Growth in 48 hours- Final report to follow
06/09/25 15:49 Blood Culture - Preliminary
Blood/Venous No Growth in 48 hours- Final report to follow
06/08/25 19:09 Urine Culture - Final
Urine Klebsiella aerogenes
Chest X-Ray: Report Reviewed
Care Review
Plan reviewed with: Nurse (regarding antibiotic for asymptomatic UTI)
Total Time Spent with Patient (in minutes): 35
[2025-06-11] MEDS: CRESTOR 20 MG PO (17:30)
--- NOTE | 2025-06-11 19:00 | PTCARENOTE ---
Pt continues to be sr on the monitor, hr in the 90s, vss. pt oob for meals and tolerating well. pt ambulated the halls w/ and tolerated very well. pt c/o right flank pain, Tylenol given as ordered, pt found relief. pt educated on plan of
care and pt verbalized understanding. at bedside visiting. call chew within reach.
--- NOTE | 2025-06-11 21:04 | PTCARENOTE ---
Pt rec'd at beginning of shift awake,alert lungs diminished without rales. no c/o nausea, ate full dinner. Sinus on telemetry. No c/o burning with urinating. Resting at present with call chew at her side.
[2025-06-11 22:10] LABS: Glucose - Point of Care 147 mg/dl (70-99)
[2025-06-12] VITALS (11 sets, daily range): BP systolic 102–139; BP diastolic 57–80; BMI 30.5
--- NOTE | 2025-06-12 03:05 | W.PN.CT ---
Today's Communication / Plan
-
-Discussion w/ ID still unclear. If no PO option for ABX, can patient get PICC line and go home?
Currently on Ceftriaxone 100 mg Q24hrs.
-Cont ASA 81, Crestor 20, Plavix 75, Toprol XL 25 daily.
-Cont. Diuresis if weight is still not back to baseline
-Cont. Farxiga, Metformin 2/2 T2DM
-TTE 06/11 reveals AV w/ pg/mg 18/06, No AI, no pericaridal effusion, and EF 65%
-Tolerating RA, 98%
-Leukocytosis-WBC improving 15.9 previously 17.6
-Discharge planning
Assessment / Plan
-
Readmit 06/08 for Hyponatremia and heart failure (BNP 1860)/volume overload s/p AVR/root enlargement 05/27/25 (Dr Ponce)
1. Hypertension
2. Hyperlipidemia
3. Hypothyroidism
4. Diabetes (A1c 7.1)-oral therapy
5. Adrenal insufficiency on chronic steroid
6. Hypothyroidism
7. Aortic stenosis
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
9. postop CVA s/p R carotid stent (TCAR @ [facility] 05/2025)
- Hyponatremia
- Heart failure (BNP 1860)
- leukocytosis
- UTI, urine w/ Klebsiella aerogenes
Discussed patient care with: Cardiology, Nursing, Pharmacy and Care Team
Subjective
Procedure
- BP improved, still feels 'unwell and fatigued', + UTI
-
Date of Service: June 12, 2025
Objective Data
-
PT 14.1 Sec (11.4-14.6) 06/08/25 16:18
INR 1.05 06/08/25 16:18
Vital Signs
Vital Signs
Temp Pulse Resp BP Pulse Ox
99.8 F 99 20 145/60 97
06/11/25 23:43 06/12/25 01:00 06/11/25 23:04 06/11/25 22:05 06/11/25 23:04
CT Intake/Output/Weight
06/11/25 06/11/25 06/12/25
06:59 18:59 06:59
Intake Total 480 / 960 480 / 480
Output Total 300 / 300 500 / 500
Balance 180 / 660 480 / -20 -500 / -20
SaO2: 97 (Room air )
Physical Exam
-
General: AOx3
Cardiovascular: Regular rate & rhythm
Respiratory: Clear
Sternum: Stable
Incision: Clean, Dry and Intact
Extremities: No Edema
Data Reviewed
-
Lab Results: Results Reviewed
Medications: Active Meds Reviewed
Chest X-Ray: Image Reviewed
[2025-06-12 04:03] LABS: Hematocrit 29.9 % (37.0-47.0); Hemoglobin 9.8 g/dL (12.0-16.0); Mean Corp Hgb Conc. 32.8 g/dL (33.0-37.0); Mean Corpuscular Volume 97.1 fL (81.0-99.0); Platelet Count 408 10^3/uL (130-400); Red Cell Dist. Width 17.0 % (11.5-14.5)
[2025-06-12 04:27] LABS: Blood Urea Nitrogen 9 mg/dl (7-17); Calcium 8.8 mg/dl (8.4-10.2); Carbon Dioxide 27 mmol/L (22-30); Chloride 99 mmol/L (98-107); Estimated Creatinine Clearance 87 ml/min; Glucose 103 mg/dl (70-99); Potassium 4.1 mmol/L (3.5-5.1); Sodium 134 mmol/L (135-145); eGFR > 60.00
[2025-06-12 07:17] LABS: Glucose - Point of Care 130 mg/dl (70-99)
--- NOTE | 2025-06-12 07:58 | W.PN.ID1 ---
Date of Service
Date of Service: June 12, 2025
Today's Communication
Transition to cipro 500mg po bid x 5 days.
Assessment / Plan
# Klebsiella aerogenes UTI
# Leukocytosis
# Recent aortic valve replacement
# recent CVA s/p TCAR at [facility]
# DM
# h/o recurrent UTI
- DC ceftriaxone.
- Transition to cipro 500mg po bid x 5 days. QTc acceptable.
- Monitor WBC.
Chief Complaint
-: Leukocytosis (Right rib/flank pain with movement but not really on palpation) and UTI
Subjective / Review of Systems
Feels well. Eating OK. No urine sxs at this time.
Vital Signs / Physical Exam
Vital Signs
Vital Signs
Temp Pulse Resp BP Pulse Ox
99.3 F 94 18 139/64 95
06/12/25 07:07 06/12/25 07:07 06/12/25 07:07 06/12/25 03:40 06/12/25 07:07
Physical Exam
Constitutional: No Acute Distress
Cardiovascular: Regular Rate and S1/S2
Pulmonary: Clear
Gastrointestinal: Soft, Non Tender and Non Distended
Neurological: AO x 3
Objective Data
Lab Data
Lab Results
06/12/25 03:52
06/12/25 03:52
PT 14.1 Sec (11.4-14.6) 06/08/25 16:18
INR 1.05 06/08/25 16:18
Estimated Creat Clear 87 ml/min 06/12/25 03:52
Total Bilirubin 0.4 mg/dl (0.2-1.3) 06/10/25 03:38
AST 18 U/L (14-36) 06/10/25 03:38
ALT 12 U/L (0-35) 06/10/25 03:38
Alkaline Phosphatase 118 U/L (38-126) 06/10/25 03:38
Most recent labs reviewed.
Micro Results:
06/09/25 16:24 Blood Culture - Preliminary
Blood/Venous No Growth in 48 hours- Final report to follow
06/09/25 15:49 Blood Culture - Preliminary
Blood/Venous No Growth in 48 hours- Final report to follow
06/08/25 19:09 Urine Culture - Final
Urine Klebsiella aerogenes
Care Review
Plan reviewed with: Physician and Other Provider (Keisha)
[2025-06-12] MEDS: SYNTHROID 75 MCG PO (08:08)
--- NOTE | 2025-06-12 09:00 | PTCARENOTE ---
Assumed care of pt from prev nsg shift; Pt AAOx3 w/no c/o CP or SOB. Pt's VSS w/HR in the 90's & BP 135/65 this AM. Pt is SR w/R BBB on telemetry monitoring. Pt reports 'not feeling well at all', also states she 'didn't sleep at all last night' 'had
multiple nightmares last night'. Pt requesting AM meds to be given after she eats & staggered so she isn't taking so many at one time. Pt's at bedside & is requesting to see admitting Dr & ID re: D/C plan & ID due to the Dr's note for
today whcih he was able to see in the pt portal. CT Surgery PA notified & in to see pt. ID notified, awaiting for them to see pt again. Pt w/call chew within reach & plan of care ongoing.
[2025-06-12] MEDS: TYLENOL 650 MG PO ×3 (10:14→22:51)
[2025-06-12] MEDS: CIPRO 500 MG PO ×2 (10:14→19:11)
[2025-06-12] MEDS: PROTONIX 40 MG PO (10:14)
[2025-06-12] MEDS: FARXIGA 10 MG PO (10:15)
[2025-06-12] MEDS: HYDROCORTONE/CORTEF 20 MG PO (10:15)
[2025-06-12] MEDS: VISBIOME 1 CAP PO (10:15)
[2025-06-12] MEDS: ASPIR LOW (ENTERIC COATED) 81 MG PO (10:15)
[2025-06-12] MEDS: SENOKOT PO (10:15)
[2025-06-12] MEDS: PLAVIX 75 MG PO (10:15)
[2025-06-12] MEDS: HIPREX 1 GRAM PO ×2 (10:16→19:12)
[2025-06-12] MEDS: GLUCOPHAGE 500 MG PO ×2 (10:16→18:12)
[2025-06-12] MEDS: TOPROL XL 25 MG PO (10:16)
[2025-06-12 12:05] LABS: Glucose - Point of Care 144 mg/dl (70-99)
[2025-06-12 17:39] LABS: Glucose - Point of Care 166 mg/dl (70-99)
[2025-06-12] MEDS: CRESTOR 20 MG PO (18:13)
--- NOTE | 2025-06-12 19:06 | PTCARENOTE ---
Pt tachycardic while in the BR; HR in the 140's-150's. Pt noted to be in new Afib w/RVR. Confirmed w/STAT EKG. BP 108/80. Pt reports 'feeling more SOB again'; denies CP. Spoke w/CT surgery PA & orders rec'd for STAT labs & STAT IV lopressor IV, then
pt to be started on IV Amiodarone drip. Shift report given to oncoming nursing shift. Plan of care ongoing.
[2025-06-12] MEDS: LOPRESSOR 5 MG IV (19:11)
[2025-06-12] MEDS: SENOKOT 8.6 MG PO (19:12)
[2025-06-12] MEDS: CORDARONE 103 MG IV (20:04)
[2025-06-12] MEDS: LR 500 IV (20:14)
[2025-06-12 20:30] LABS: Blood Urea Nitrogen 9 mg/dl (7-17); Calcium 8.8 mg/dl (8.4-10.2); Carbon Dioxide 25 mmol/L (22-30); Chloride 100 mmol/L (98-107); Estimated Creatinine Clearance 88 ml/min; Glucose 209 mg/dl (70-99); Magnesium 1.8 mg/dl (1.6-2.3); Potassium 4.3 mmol/L (3.5-5.1); Sodium 131 mmol/L (135-145); eGFR > 60.00
[2025-06-12] MEDS: CORDARONE 518 MG IV (21:02)
[2025-06-12] MEDS: MAGNESIUM SULFATE 50 IV (21:33)
[2025-06-12 22:48] LABS: Glucose - Point of Care 150 mg/dl (70-99)
--- NOTE | 2025-06-12 23:44 | PTCARENOTE ---
Pt in rapid afib just before change of shift . Seen by CV PA. Lopressor 5 mg iv ordered stat-given and Amio bolus and gtt ordered.
With pt being a difficult stick IV team called to start new designated line for Amio. New 22g placed in left forearm and stat lab drawn at that time. IV Amio bolus given. Pharmacy called for Amio gtt and dose started as soon as it was made
available. Previous IV site in RAC leaking, IV team down again to start second line for IV Mag and IV LR ordered. Pt oob several times to void on bsc. Passed small solid bm.
[2025-06-13] VITALS (16 sets, daily range): BP systolic 99–134; BP diastolic 54–100; BMI 29.4
[2025-06-13] MEDS: SYNTHROID 75 MCG PO (04:40)
[2025-06-13] MEDS: TYLENOL 650 MG PO ×3 (04:40→20:28)
[2025-06-13 05:06] LABS: Hematocrit 28.9 % (37.0-47.0); Hemoglobin 9.8 g/dL (12.0-16.0); Mean Corp Hgb Conc. 33.9 g/dL (33.0-37.0); Mean Corpuscular Volume 94.8 fL (81.0-99.0); Nucleated Red Blood Cells % 0 %; Platelet Count 461 10^3/uL (130-400); Red Cell Dist. Width 16.7 % (11.5-14.5)
[2025-06-13 05:21] LABS: Blood Urea Nitrogen 7 mg/dl (7-17); Calcium 8.6 mg/dl (8.4-10.2); Carbon Dioxide 27 mmol/L (22-30); Chloride 103 mmol/L (98-107); Estimated Creatinine Clearance 87 ml/min; Glucose 97 mg/dl (70-99); Magnesium 2.2 mg/dl (1.6-2.3); Potassium 4.1 mmol/L (3.5-5.1); Sodium 136 mmol/L (135-145); eGFR > 60.00
[2025-06-13 05:51] LABS: Macrocytosis 2+; Normal RBC Morphology No; Ovalocytes 1+
--- NOTE | 2025-06-13 05:52 | PTCARENOTE ---
Pt oob freq to bsc, voiding without difficulty. Pt remains in afib with Amio gtt infusing via LFA. Iv site remains patent. Tylenol given for back discomfort.
--- NOTE | 2025-06-13 06:02 | W.PN.CT ---
Today's Communication / Plan
-
-Tmax 101.1*F yesterday, preceded afib with RVR. s/p IV metoprolol and amio bolus/gtt, remains on amio gtt, BP stable
-ID switched to Cipro PO, now with amio infusion may need to consider changing if QTc is prolonged on AM EKG (pending)
-bladder scan post void to ensure emptying of infected urine, no hydro on RBUS, no PANTERA
-Cont ASA 81, Crestor 20, Plavix 75, Toprol XL 25 daily.
-gave 500 cc LR back to patient yesterday, improved RVR
-Cont. Farxiga, Metformin 2/2 T2DM, may need to hold Farxiga
-TTE 06/11 reveals AV w/ pg/mg 18/06, No AI, no pericardial effusion, and EF 65%
Assessment / Plan
-
Readmit 06/08 for Hyponatremia and heart failure (BNP 0)/volume overload s/p AVR/root enlargement 05/27/25 (Dr Ponce)
1. Hypertension
2. Hyperlipidemia
3. Hypothyroidism
4. Diabetes (A1c 7.1)-oral therapy
5. Adrenal insufficiency on chronic steroid
6. Hypothyroidism
7. Aortic stenosis
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
9. postop CVA s/p R carotid stent (TCAR @ [facility] 05/2025)
- Hyponatremia
- Heart failure (BNP 0)
- leukocytosis
- UTI, urine w/ Klebsiella aerogenes
- Atrial fibrillation with rapid ventricular response
Subjective
Procedure
-
Date of Service: June 13, 2025
Objective Data
-
Lab Results
06/13/25 04:30
06/13/25 04:30
PT 14.1 Sec (11.4-14.6) 06/08/25 16:18
INR 1.05 06/08/25 16:18
Vital Signs
Vital Signs
Temp Pulse Resp BP Pulse Ox
98.2 F 101 20 132/81 97
06/13/25 04:18 06/13/25 04:18 06/13/25 04:18 06/13/25 04:18 06/12/25 20:00
CT Intake/Output/Weight
06/12/25 06/12/25 06/13/25
06:59 18:59 06:59
Intake Total 960 / 1660 700 / 1660
Output Total 500 / 500 2100 / 2100
Balance -500 / -20 960 / -440 -1400 / -440
SaO2: 97
Physical Exam
-
General: Awake and Oriented
Cardiovascular: Irregular rate & rhythm, No Murmurs and No Rub
Respiratory: Clear, Equal and Decreased Breath Sounds
Extremities: Edema +1
Data Reviewed
-
Lab Results: Results Reviewed
Medications: Active Meds Reviewed
Chest X-Ray: Report Reviewed
ECG: Report Reviewed
[2025-06-13 08:02] LABS: Glucose - Point of Care 172 mg/dl (70-99)
--- NOTE | 2025-06-13 09:05 | W.PN.ID1 ---
Date of Service
Date of Service: June 13, 2025
Today's Communication
Continue current course of ciprofloxacin.
Assessment / Plan
# Klebsiella aerogenes UTI
# Leukocytosis
# Recent aortic valve replacement
# recent CVA s/p TCAR at [facility]
# DM
# h/o recurrent UTI
- DC ceftriaxone.
- Continue with cipro 500mg po bid x 5 days. QTc remains acceptable.
- Monitor WBC.
Chief Complaint
-: Leukocytosis (Right rib/flank pain with movement but not really on palpation) and UTI
Subjective / Review of Systems
Review of Systems: No Fever, No Chills and No Dysuria
Vital Signs / Physical Exam
Vital Signs
Vital Signs
Temp Pulse Resp BP Pulse Ox
98 F 101 20 112/75 98
06/13/25 07:09 06/13/25 07:08 06/13/25 07:09 06/13/25 07:08 06/13/25 07:09
Physical Exam
Constitutional: No Acute Distress
Cardiovascular: Regular Rate and S1/S2
Pulmonary: Clear
Gastrointestinal: Soft, Non Tender and Non Distended
Neurological: AO x 3
Objective Data
Lab Data
Lab Results
06/13/25 04:30
06/13/25 04:30
PT 14.1 Sec (11.4-14.6) 06/08/25 16:18
INR 1.05 06/08/25 16:18
Estimated Creat Clear 87 ml/min 06/13/25 04:30
Total Bilirubin 0.4 mg/dl (0.2-1.3) 06/10/25 03:38
AST 18 U/L (14-36) 06/10/25 03:38
ALT 12 U/L (0-35) 06/10/25 03:38
Alkaline Phosphatase 118 U/L (38-126) 06/10/25 03:38
Most recent labs reviewed.
Micro Results:
06/09/25 16:24 Blood Culture - Preliminary
Blood/Venous No Growth in 72 hours- Final report to follow
06/09/25 15:49 Blood Culture - Preliminary
Blood/Venous No Growth in 72 hours- Final report to follow
06/08/25 19:09 Urine Culture - Final
Urine Klebsiella aerogenes
[2025-06-13] MEDS: FARXIGA 10 MG PO (09:18)
[2025-06-13] MEDS: CIPRO 500 MG PO ×2 (09:18→20:18)
[2025-06-13] MEDS: HYDROCORTONE/CORTEF 20 MG PO (09:18)
[2025-06-13] MEDS: VISBIOME 1 CAP PO (09:18)
[2025-06-13] MEDS: HIPREX 1 GRAM PO ×2 (09:19→20:18)
[2025-06-13] MEDS: GLUCOPHAGE 500 MG PO ×2 (09:19→17:49)
[2025-06-13] MEDS: ELIQUIS 5 MG PO ×2 (09:19→20:17)
[2025-06-13] MEDS: PROTONIX 40 MG PO (09:19)
[2025-06-13] MEDS: PLAVIX 75 MG PO (09:19)
[2025-06-13] MEDS: TOPROL XL 50 MG PO (09:19)
[2025-06-13] MEDS: SENOKOT 8.6 MG PO ×2 (09:19→20:17)
[2025-06-13 11:52] LABS: Glucose - Point of Care 124 mg/dl (70-99)
--- NOTE | 2025-06-13 14:35 | CON.CAR ---
Consultation
Consultation Request
Date/Time Consultation Requested: 06/13/25
Date/Time Consultation Performed: 06/13/25
Requesting Provider: Dr Ponce
Performing Provider: Dr Finch (Dr Bacon)
Reason for Consultation: afib with prolonged qtc
Medical History
-
Chief Complaint: chest pain
History of Present Illness:
69 y/o with (Dr. Bacon) severe aortic stenosis, moderate aortic regurgitation, RBBB, tobacco use (quit 3 weeks ago), DM, adrenal insufficiency, hypothyroidism, recurrent UTI's, colovesical fistula, perirectal abscesses who returned after recent
admission on 05/27/2025 for aortic valve replacement with number 25 mm Inspira's tissue valve and root enlargement by Dr. Calderon Ponce. Unfortunately this was complicated by post op CVA and she was transferred to [facility] on 05/29/25 and underwent TCAR.
She represented after discharge for anorexia and fatigue. She was hyponatremic with a leukocytosis and volume overload. Urology and ID have been involved for possible UTI. She was found to have Klebsiella UIT now on Cipro. Of note, TTE on 06/11/25
shows normal bioprosthetic valve function and normal biventricular size and function. Unfortunately, she is now found to be in AFIB. We are asked to comment given the need for Cipro and initiation of amiodarone. She is on bb and DAPT has been
transitioned appropriately to Eliquis/clopidogrel.
She is feeling fatigued. SHe has no palpitaitons but she just felt very lightheaded just trying to walk to the door with her .
Past Medical History
Past Medical History: HTN, Hypercholesterolemia, NIDDM and Valvular Disease
Social History
Tobacco: Former Smoker (quit 3 weeks ago)
Personal:
Family History
Family History: Reviewed & Not Pertinent
Allergies / Home Medications
Allergy/AdvReac Type Severity Reaction Status Date / Time
No Known Allergies Allergy Verified 05/20/25 14:45
�Medication �Instructions �Recorded �Confirmed �Type
furosemide 20 mg tablet 20 mg PO DAILY Fluid 03/04/23 06/08/25 History
retention/Swelling
hydrocortisone 10 mg tablet 20 mg PO DAILY Anti-inflammatory 03/04/23 06/08/25 History
rosuvastatin 5 mg tablet (Crestor) 5 mg PO QPM High Cholesterol 09/12/24 06/08/25 History
levothyroxine 75 mcg tablet 75 mcg PO DAILY Thyroid 09/17/24 06/08/25 History
(Synthroid)
Lactobac no.2-Bifidobac no.1-S. 1 cap PO DAILY Supplement ##0 03/21/25 06/08/25 History
thermo 112.5 billion cell capsule
(Visbiome)
aspirin 81 mg chewable tablet 81 mg PO DAILY Heart 05/04/25 06/08/25 History
Disease/Condition
lisinopril 5 mg tablet 10 mg PO DAILY Blood Pressure 05/04/25 06/08/25 History
pantoprazole 40 mg tablet,delayed 40 mg PO DAILY Gastrointestinal 05/04/25 06/08/25 History
release Issue
methenamine hippurate 1 gram tablet 1 g PO BID #30 tabs 05/08/25 06/08/25 Rx
blood sugar diagnostic (Contour ##100 05/28/25 06/09/25 Rx
Next Test Strips)
dapagliflozin propanediol 10 mg 10 mg PO DAILY #30 tabs 05/28/25 06/08/25 Rx
tablet (Farxiga)
lancets 21 gauge (Color Lancets) ##100 05/28/25 06/09/25 Rx
metformin 500 mg tablet 500 mg PO BID@0800,1700 #60 tabs 05/28/25 06/08/25 Rx
carvedilol 12.5 mg tablet (Coreg) 12.5 mg PO BID 06/08/25 06/08/25 History
clopidogrel 75 mg tablet 75 mg PO DAILY 06/08/25 06/08/25 History
multivitamin 1 tab PO DAILY 06/08/25 06/08/25 History
oxycodone 5 mg tablet 5 mg PO Q6H PRN pain 06/08/25 06/08/25 History
rosuvastatin 20 mg tablet 20 mg PO DAILY 06/08/25 06/08/25 History
sennosides 8.6 mg tablet (senna) 8.6 mg PO BID PRN constipation 06/08/25 06/08/25 History
Review of Systems
-
All other systems: Negative unless noted
Physical Exam
Vital Signs
Temp Pulse Resp BP Pulse Ox
98.1 F 93 20 106/72 97
06/13/25 11:47 06/13/25 12:00 06/13/25 11:47 06/13/25 12:00 06/13/25 11:48
Lab Results
06/13/25 04:30
06/13/25 04:30
Troponin I 0.070 ng/ml H* 06/08/25 16:18
Gpd-E-Fhsdbxsyval Pept 1860 pg/ml 06/08/25 16:18
Physical Exam
General: Well Developed and Well Nourished
HEENT: Normocephalic
Respiratory: Clear; Negative Wheezes, Crackles or Rhonchi
Cardiac: S1/S2, Irregular Rhythm and Murmur (soft systolic murmur); Negative Peripheral Edema
Genito-urinary: No Costovertebral Tender
Neuro: AO x 3
Impression / Plan
-
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
AF with RVR:
=
-QTC 557 m/s on my measurement, prior on 06/08/25 486m/s
-would prefer increasing metoprolol for rate control and abandoning rhythm control, at least while she is on cipro
-will increase metoprolol 50bid (she had been on coreg 12.5mg bid roughly equivalent to this dose as op)
-on Eliquis (C2V: 6: cva,htn,gender,DM,age)
UTI: requires CIPRO
Severe , moderate AR s/p surgical aortic valve replacement [25 mm bioprosthesis] and aortic root enlargement using bovine pericardial patch, Dr. Ponce 05/27/25
-echo stable
CVA: s/p TCAR
statin, statin
Coronary artery disease, nonobstructive
-continue ASA, statin
-Glucose control, lipid control, and refrain from tobacco
Type 2 diabetes mellitus, HgbA1c 7.1%, on insulin drip
HTN, stable, follow postoperatively
Data Reviewed:
TTE06/11/25
1. Left ventricular ejection fraction is normal with an ejection fraction of 65 % by Montiel's biplane method of discs.
2. Right ventricular size and systolic function are within normal limits.
3. Well seated, normally functioning Bioprosthetic aortic valve prosthesis.
4. No evidence of pericardial effusion.
5. Compared to the prior echo on 03/09/2025 the aortic valve has been replaced.
Data Reviewed
-
EKG: Tracing Personally Visualized and interpreted (afib with rbbb prolonged qtc even when consider rbbb)
--- NOTE | 2025-06-13 14:36 | VATNOTE ---
Vat : Called to assess left arm amnio infiltrate. measuring 3x3 cm. [place] in color no c/o pain @ this time. Warm compress applied. Elevated on pillow. Will continue to monitor closely.
--- NOTE | 2025-06-13 14:40 | PTCARENOTE ---
This RN called in to see check pt's IV because it was leaking. Pt's L FA IV line w/IV amiodarone infusing noted to be leaking, so infusion stopped. Upon further inspection, area of infiltration noted on pt's ventral forearm. Site reddened w/trace
edema, approx 3.5 cm x 5 cm in size. Pt reports mild pain w/touch. IV line pulled, warm compress applied, & VAT notified to come see pt. CT surgery PA notified & Amio IV drip D/C'd, PO amio ordered to start later today.
[2025-06-13 17:49] LABS: Glucose - Point of Care 147 mg/dl (70-99)
[2025-06-13] MEDS: CRESTOR 20 MG PO (17:49)
--- NOTE | 2025-06-13 19:00 | PTCARENOTE ---
Pt converted back to SR after being OOB to BR. Confirmed w/EKG. Advised CT surgery PA & [employer]s [employer]. No new orders received. Plan of care ongoing.
[2025-06-13] MEDS: FLUSH (NSS) 1 FLUSH IV (20:18)
[2025-06-13] MEDS: TOPROL XL 25 MG PO (20:18)
[2025-06-13 22:14] LABS: Glucose - Point of Care 93 mg/dl (70-99)
--- NOTE | 2025-06-14 00:48 | PTCARENOTE ---
Received pt at change of shift resting in bed. SR on tele, HR in the 80's. pt denies any CP or SOB. Right arm infiltrate area red and tender to the touch, warm compress applied with relief. PRN Tylenol administered per pt request for back pain 03/13.
Encouraged pt to call for assistance ambulating, calls appropriately. Call chew within reach.
[2025-06-14 04:01] VITALS: BP 147/67
[2025-06-14 04:22] LABS: Hematocrit 27.1 % (37.0-47.0); Hemoglobin 9.1 g/dL (12.0-16.0); Mean Corp Hgb Conc. 33.6 g/dL (33.0-37.0); Mean Corpuscular Volume 94.4 fL (81.0-99.0); Platelet Count 473 10^3/uL (130-400); Red Cell Dist. Width 16.7 % (11.5-14.5)
[2025-06-14 04:44] LABS: Blood Urea Nitrogen 8 mg/dl (7-17); Calcium 8.9 mg/dl (8.4-10.2); Carbon Dioxide 25 mmol/L (22-30); Chloride 103 mmol/L (98-107); Estimated Creatinine Clearance 87 ml/min; Glucose 85 mg/dl (70-99); Magnesium 1.8 mg/dl (1.6-2.3); Potassium 4.2 mmol/L (3.5-5.1); Sodium 134 mmol/L (135-145); eGFR > 60.00
--- NOTE | 2025-06-14 05:42 | W.PN.CT ---
Today's Communication / Plan
-
-POD # 18 (readmit)
-Afib RVR yesterday on amio gtt, appreciate cards input, stopped amio 2/2 prolonged QTc and now on metoprolol 50 mg (on coreg at home, held 2/2 soft BPs)
-changed to Plavix/Eliquis, C2V = 6
-converted to NSR ~1830 hrs yesterday
-Continue Cipro for klebsiella UTI per ID
-Cont Eliquis, Crestor 20, Plavix 75, Toprol XL 50 daily.
-Cont. Farxiga, Metformin 2/2 T2DM
-TTE 06/11 reveals AV w/ pg/mg 18/06, No AI, no pericardial effusion, and EF 65%
Assessment / Plan
-
Readmit 06/08 for Hyponatremia and heart failure (BNP 1860)/volume overload s/p AVR/root enlargement 05/27/25 (Dr Ponce)
1. Hypertension
2. Hyperlipidemia
3. Hypothyroidism
4. Diabetes (A1c 7.1)-oral therapy
5. Adrenal insufficiency on chronic steroid
6. Hypothyroidism
7. Aortic stenosis
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
9. postop CVA s/p R carotid stent (TCAR @ [facility] 05/2025)
- Hyponatremia
- Heart failure (BNP 1860)
- leukocytosis
- UTI, urine w/ Klebsiella aerogenes
- Atrial fibrillation with rapid ventricular response
Subjective
Procedure
-
Date of Service: June 14, 2025
Objective Data
-
Lab Results
06/14/25 03:59
06/14/25 03:59
PT 14.1 Sec (11.4-14.6) 06/08/25 16:18
INR 1.05 08/05/25 16:18
Vital Signs
Vital Signs
Temp Pulse Resp BP Pulse Ox
98.2 F 72 16 130/69 97
06/14/25 04:01 06/14/25 00:00 06/14/25 04:01 06/13/25 22:24 06/14/25 04:01
CT Intake/Output/Weight
06/13/25 06/13/25 06/14/25
06:59 18:59 06:59
Intake Total 700 / 1660 960 / 1440 480 / 1440
Output Total 2100 / 2100 225 / 225
Balance -1400 / -440 960 / 1215 255 / 1215
SaO2: 97
Physical Exam
-
General: Awake, Oriented and AOx3
Cardiovascular: Regular rate & rhythm and No Murmurs
Respiratory: Clear and Equal
Extremities: Edema +1 and No Erythema
Data Reviewed
-
Lab Results: Results Reviewed
Medications: Active Meds Reviewed
Chest X-Ray: Report Reviewed
ECG: Report Reviewed
[2025-06-14 06:00] VITALS: BMI 29.7
[2025-06-14] MEDS: SYNTHROID 75 MCG PO (06:38)
[2025-06-14 06:47] LABS: Absolute Neutrophils -Man Diff 5.2 10^3/uL (1.4-6.5); Macrocytosis 3+; Normal RBC Morphology No; Platelets Checked Yes; Polychromasia 1+; Total Cells Counted 100
[2025-06-14 07:06] VITALS: BP 144/70
[2025-06-14 07:52] LABS: Glucose - Point of Care 101 mg/dl (70-99)
[2025-06-14] MEDS: VISBIOME 1 CAP PO (08:40)
[2025-06-14] MEDS: PLAVIX 75 MG PO (08:40)
[2025-06-14] MEDS: TYLENOL 650 MG PO (08:40)
[2025-06-14] MEDS: SENOKOT 8.6 MG PO (08:40)
[2025-06-14] MEDS: GLUCOPHAGE 500 MG PO (08:40)
[2025-06-14] MEDS: HYDROCORTONE/CORTEF 20 MG PO (08:40)
[2025-06-14] MEDS: CIPRO 500 MG PO (08:40)
[2025-06-14] MEDS: FARXIGA 10 MG PO (08:40)
[2025-06-14] MEDS: TOPROL XL 25 MG PO (08:41)
[2025-06-14] MEDS: PROTONIX 40 MG PO (08:41)
[2025-06-14] MEDS: ELIQUIS 5 MG PO (08:41)
[2025-06-14] MEDS: HIPREX 1 GRAM PO (08:41)
--- NOTE | 2025-06-14 08:56 | W.PN.CD ---
Today's Communication / Plan
-
EKG for qTC now that in SR
cont. metop
can consider amio once cipro course finished with close monitoring of qTC
Impression / Plan
-
Primary director of physiotherapy services: Dr Bacon
AF with RVR, prolonged qTC, now in SR
-QTC 557 m/s 06/12, on 06/13 by my measure (corrected for QRS prolongation, qTC ~495), needs repeat EKG today now that back in sinus (ordered)
-cont. metoprolol 50bid
-on Eliquis (C2V: 6: cva,htn,gender,DM,age)
-once cipro course is over can consider ininitiation of amio with close monitoring of qTC
UTI: requires CIPRO, plan for 5 days course
Severe , moderate AR s/p surgical aortic valve replacement [25 mm bioprosthesis] and aortic root enlargement using bovine pericardial patch, Dr. Ponce 05/27/25
-echo stable
CVA: s/p TCAR
statin, statin
Coronary artery disease, nonobstructive
-continue ASA, statin
-Glucose control, lipid control, and refrain from tobacco
Type 2 diabetes mellitus, HgbA1c 7.1%, on insulin drip
HTN, stable, follow postoperatively
Data Reviewed:
TTE06/11/25
1. Left ventricular ejection fraction is normal with an ejection fraction of 65 % by Montiel's biplane method of discs.
2. Right ventricular size and systolic function are within normal limits.
3. Well seated, normally functioning Bioprosthetic aortic valve prosthesis.
4. No evidence of pericardial effusion.
5. Compared to the prior echo on 03/09/2025 the aortic valve has been replaced.
Physical Exam
Vital Signs/Labs
Vital Signs
Temp Pulse Resp BP Pulse Ox
36.9 C 81 20 144/70 98
06/14/25 07:07 06/14/25 08:00 06/14/25 07:07 06/14/25 07:06 06/14/25 07:07
06/13/25 06/14/25 06/15/25
06:59 06:59 06:59
Actual Weight 77.7 kg 78.3 kg
06/14/25 03:59
06/14/25 03:59
PT 14.1 Sec (11.4-14.6) 06/08/25 16:18
INR 1.05 06/08/25 16:18
Magnesium 1.8 mg/dl (1.6-2.3) 06/14/25 03:59
Free T4 1.64 ng/dl (0.78-2.19) 06/10/25 03:38
06/08/25
16:18
Kww-V-Ylmvdyynqpw Pept 1859
Physical Exam
Constitutional: Comfortable
Cardiovascular: Rhythm & rate is regular
Respiratory: Respiratory effort normal
Neuro/Psych: AO x 3
Data Reviewed
-
Date of Service: June 14, 2025
Medical Decision Making: Reviewed Test Results
EKG: Tracing Personally Visualized and interpreted
Labs: Labs Reviewed by me
--- NOTE | 2025-06-14 10:07 | W.PN.ID1 ---
Date of Service
Date of Service: June 14, 2025
Today's Communication
Sign off
Assessment / Plan
# Klebsiella aerogenes UTI
# Leukocytosis
# Recent aortic valve replacement
# recent CVA s/p TCAR at [facility]
# DM
# h/o recurrent UTI
Recommendations:
- Continue with cipro 500mg po bid (d#3) to complete 5 days.
Little more to offer from a Infectious Diseases standpoint.
Will see again at your request.
Chief Complaint
-: Leukocytosis (Right rib/flank pain with movement but not really on palpation) and UTI
Subjective / Review of Systems
Review of Systems: No Fever, No Chills and No Chest Pain
Vital Signs / Physical Exam
Vital Signs
Vital Signs
Temp Pulse Resp BP Pulse Ox
98.5 F 81 20 144/70 98
06/14/25 07:07 06/14/25 08:00 06/14/25 07:07 06/14/25 07:06 06/14/25 08:00
Physical Exam
Constitutional: No Acute Distress
Cardiovascular: Regular Rate and S1/S2
Pulmonary: Clear and Non Labored
Gastrointestinal: Soft, Non Tender and Non Distended
Wound: Other (Prior sternal wound without erythema. Minimal dried crusting.)
Neurological: AO x 3
Objective Data
Lab Data
Lab Results
06/14/25 03:59
06/14/25 03:59
PT 14.1 Sec (11.4-14.6) 06/08/25 16:18
INR 1.05 06/08/25 16:18
Estimated Creat Clear 87 ml/min 06/14/25 03:59
Total Bilirubin 0.4 mg/dl (0.2-1.3) 06/10/25 03:38
AST 18 U/L (14-36) 06/10/25 03:38
ALT 12 U/L (0-35) 06/10/25 03:38
Alkaline Phosphatase 118 U/L (38-126) 06/10/25 03:38
Most recent labs reviewed.
Micro Results:
06/09/25 16:24 Blood Culture - Preliminary
Blood/Venous No Growth in 4 days- Final report to follow
06/09/25 15:49 Blood Culture - Preliminary
Blood/Venous No Growth in 4 days- Final report to follow
06/08/25 19:09 Urine Culture - Final
Urine Klebsiella aerogenes
Urine Culture Final 06/08/25
CC: Greater than 100,000 CFU/ML Klebsiella aerogenes
Organism 1 Klebsiella aerogenes
1. Klebsiella aerogenes
M.I.C. RX
--------- ---
Amoxicillin/Potas. Clavulanate >16/8 R
Ampicillin >16 R
Ampicillin/Sulbactam >16/8 R
Aztreonam <=4 S
Cefazolin >16 R
Cefepime <=2 S
Ceftazidime <=1 S
Ceftriaxone <=1 S
Ertapenem <=0.5 S
Ciprofloxacin <=0.25 S
Gentamicin <=2 S
Meropenem <=1 S
Nitrofurantoin-Urine Only <=32 S
Piperacillin/Tazobactam <=8 S
Tetracycline <=4 S
Tobramycin <=2 S
Trimethoprim/Sulfamethoxazole <=2/38 S
--- NOTE | 2025-06-14 11:35 | VATNOTE ---
Vat rounds: Left arm amnio infiltrate continues to be red but diffused. No c/o pain @this time. Warm compress suggested. Patient did not want it @ this time. Will continue to monitor closely.
[2025-06-14 11:50] VITALS: BP 114/93
[2025-06-14 12:10] LABS: Glucose - Point of Care 138 mg/dl (70-99)
[2025-06-14 12:17] VITALS: BP 114/93; PULSE 75; O2SAT 99
--- NOTE | 2025-06-14 14:20 | W.DCSUMMARY ---
Discharge Summary
Discharge Data
Date of Admission: 06/08/25
Date of Discharge: 06/14/25
-
Pending Results: No
Hospital Course
Primary care physician: Dr. Kavitha Escalera
Outpatient medical transcriber: Dr. Bacon
Inpatient consultants: [facility] Cardiology, Infectious Disease, Urology
Primary Diagnosis:
1. Heart Failure s/p AVR with aortic root enlargement (05/27/24) with Dr. Ponce
Secondary Diagnoses:
1. Hyponatremia
2. UTI secondary to Klebsiella
3. A-fib with RVR
4. T2DM
5. R TCAR (05/2025) at [facility]
6. Hypothyroidism
7. HTN
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
9. HLD
10. Adrenal insufficiency
HPI: Ms. Anjelica Newman is a 69-year-old female with a PMH significant for recent AVR with aortic root enlargement (05/27/25) complicated by CVA leading to emergent transfer to [facility] for TCAR who presented to [facility] ED with complaints of fatigue,
anorexia, and shortness of breath. Upon arrival, patient reported anorexia and fatigue with recent shortness of breath. She denied CP, LE edema, fever/chills, [place], or dizziness. She was recently discharged from [facility] 4-days prior to her arrival s/p
TCAR. Upon ED arrival, she was found to be in acute heart failure with BNP of 1860 with hyponatremia (Na 125) and abnormal UA. Infectious disease was consulted in which she was started on Rocephin > [id number] mg q12h on 06/12/25 for 5-days.
Hyponatremia and HF were managed with medication alterations and diuresis. During her admission, she went into AF with RVR in which she was medically managed with her BB.
Hospital course: Ms. Anjelica Newman is a 69-year-old female with a PMH significant for recent AVR with aortic root enlargement (05/27/25) complicated by CVA leading to emergent transfer to [facility] for TCAR who presented to [facility] ED with complaints of
fatigue, anorexia, and shortness of breath. Upon arrival, patient reported anorexia and fatigue with recent shortness of breath. She denied CP, LE edema, fever/chills, [place], or dizziness. She was recently discharged from [facility] 4-days prior to her
arrival s/p TCAR. Upon ED arrival, she was found to be in acute heart failure with BNP of 1860 with hyponatremia (Na 125) and abnormal UA. Infectious disease was consulted in which she was started on Rocephin > [id number] mg q12h on 06/12/25 for 5-days.
Urology was consulted due to her history of re-current UTI's in which a renal US was performed with did not show abnormalities. She was referred to continue methenamine hippurate and follow-up with urology as an outpatient. Hyponatremia showed
improvement with diuresis. TSH show slight abnormality of <0.02 with T4 of 1.73 and T3 of 2.5. She was maintained on Synthroid and recommended to follow-up with PCP as outpatient. HF was managed with medication alterations and diureses. Her Coreg
was discontinued due to hypotension, she was initiated on Toprol XL. Chest x-ray upon admission showed small bilateral pleural effusions. TTE on 06/11/2025 showed EF 65%, no pericardial effusion, AV peak mean gradient of 15/8 respectively with no
AI. During her admission, she went into AF with RVR in which she was medically managed with up-titration of her Toprol XL. Amiodarone was removed from her regiment and would be addressed upon follow-up with Cardiology due to current treatment of
UTI with Cipro and risk for QTc prolongation. She was initiated on Eliquis 5 mg twice daily for C2V of 6. On 06/14/2025, her leukocytosis has resolved she was afebrile for 24 hours and was stable to be discharged home with plan to follow-up with
cardiac surgery office in 2 weeks, urology, and VNA services.
Home medication changes:
- See list provided below
Discharge Plan
-
Patient Disposition: Home (Routine Discharge)
Discharge Diagnosis/Procedures: CHF, UTI
Condition: Fair
Diet: Low Sodium and Diabetic, Carb Controlled
Activity: As tolerated
Driving Restrictions: Not until seen by your Dr
Bathing Restrictions: OK to Shower
Other Services: VN
Specialty Instructions: Weigh Daily- Call MD for wt gain/loss 3 lbs overnight/5 lbs in 1 week
Activity Restrictions/Additional Instructions:
ACTIVITY:
-No strenuous activity: no heavy lifting, pushing, pulling anything over 15 pounds for one month
-continue to use stairs as tolerated
DRIVING RESTRICTIONS:
-No driving for one month or until approved by your surgeon
WOUND CARE:
-Shower daily. Use soap & water.
-No lotions, creams or powders on incision area.
DIET:
-continue a low fat/low cholesterol diet.
-If you are diabetic, continue carb controlled diet.
CARDIAC REHAB:
-Please make appointment to start in 5-6 weeks with your local hospital program. (See Cardiac Rehabilitation Discharge Booklet).
SPECIALTY INSTRUCTIONS:
-Weigh yourself daily. Call your physician for any weight gain/loss of 3 lbs overnight or 5 lbs in one week.
-REPORT any clicking noise or uneven appearance of your sternum to your surgeon immediately.
-If you smoke, you are instructed to quit. The [place] smoking hotline phone number is [phone]
Referrals:
[facility] [Outside]
Bryan Eddy MD [Active, Urology]
Referral Note: Consultation for frequent UTI and vaginato prevention.
Kavitha Escalera MD [Family Provider, Family Practice]
Nikole Mendoza CRNP [Specified Professional Personl, Cardiac Surgery] - 06/28/25 1:30 pm
Referral Note: Routine postoperative visit s/p AVR with Dr. Calderon Ponce
Prescriptions:
New
ciprofloxacin HCl 500 mg Tablet
500 mg PO BID 3 Days Qty: 6 0RF
acetaminophen 325 mg Tablet
650 mg PO Q4HPRN PRN (Reason: headache, pain, fever) Qty: 0 0RF
apixaban 5 mg tablet
5 mg PO BID Qty: 60 2RF
metoprolol succinate 25 mg Tablet Extended Release 24 Hr
25 mg PO BID Qty: 60 2RF
Continued
furosemide 20 mg Tablet
20 mg PO DAILY
hydrocortisone 10 mg Tablet
20 mg PO DAILY
levothyroxine [Synthroid] 75 mcg Tablet
75 mcg PO DAILY
Visbiome 112.5 billion cell Capsule
1 cap PO DAILY Qty: 0
pantoprazole 40 mg tablet,delayed release (DR/EC)
40 mg PO DAILY
lisinopril 5 mg tablet
10 mg PO DAILY
sennosides [senna] 8.6 mg Tablet
8.6 mg PO BID PRN (Reason: constipation)
multivitamin Tablet
1 tab PO DAILY Qty: 0 0RF
metformin 500 mg Tablet
500 mg PO BID@0800,1700 Qty: 60 0RF
clopidogrel 75 mg Tablet
75 mg PO DAILY Qty: 0 0RF
(DME) Contour Next Test Strips Strip
Qty: 100 1RF
Rx Instructions:
Test 2 times per day, As Directed, fasting and alternate 2 hours after a meal
methenamine hippurate 1 gram tablet
1 g PO BID Qty: 30 0RF
Rx Instructions:
has 1 more tablet on 06/08/25 at night
rosuvastatin 20 mg Tablet
20 mg PO DAILY Qty: 0 0RF
(DME) lancets [Color Lancets] 21 gauge Misc
Qty: 100 1RF
Rx Instructions:
Test 2 times per day, As Directed, fasting and 2 hours alternating after a meal
dapagliflozin propanediol [Farxiga] 10 mg Tablet
10 mg PO DAILY Qty: 30 0RF
Discontinued
rosuvastatin [Crestor] 5 mg Tablet
5 mg PO QPM
aspirin 81 mg tablet,chewable
81 mg PO DAILY
carvedilol [Coreg] 12.5 mg Tablet
12.5 mg PO BID
oxycodone 5 mg Tablet
5 mg PO Q6H PRN (Reason: pain)
Discharge Orders:
Discharge Patient (As Directed); Ordered 06/14/25
Ordered By: Jerica Martínez
Care Plan Goals
Care Plan Goals:
Problem: Readiness for enhanced knowledge related to diagnosis and treatment plan
Goal: Understand your diagnosis and treatment plan needs, including medications if applicable.
Instructions: Know your diagnosis, underlying causes and treatment plan options, including medications if applicable. Consult with your health care team to learn about your diagnosis and treatment plan, including medications if applicable.
Discharge Date and Time
Discharge Date/Time: 06/14/25 14:28
Print Language: AFGHAN
--- NOTE | 2025-06-14 14:25 | PTCARENOTE ---
IV and tele removed. Discharge instructions reviewed w/ pt and spouse and verbalizes understanding. Belongings collected and sent home w/ pt. Escorted via staff assist and WC to home w/ spouse.
--- NOTE | 2025-06-15 09:12 | W.PN.UPDATE ---
Update Note
Progress Note Update
CDI Inquiry: Patient presented with acute on chronic HFpEF.
--- NOTE | 2025-06-15 09:16 | W.PN.UPDATE ---
Update Note
Progress Note Update
CDI Inquiry: Patient presenting with mild elevation in Troponin, suspected to be myocardial demand ischemia in setting of acute on chronic, mild HF.
== END 2025-06-14 14:28 | disposition home health service (06) | DRG 291 ==
LOC: IVU 23:00
PROVIDERS: Emergency Medicine; Nurse Practitioner; Physician Assistant; Physician Assistant Medical; ADMITTING PHYSICIAN Thoracic Surgery (Cardiothoracic Vascular Surgery); CONSULT PHYSICIAN Internal Medicine Cardiovascular Disease; CONSULT PHYSICIAN Specialist; EMERGENCY PHYSICIAN Emergency Medicine; FAMILY PHYSICIAN Family Medicine; OTHER PHYSICIAN Hospitalist
DX: I11.0 Hypertensive heart disease with heart failure (principal); I50.33 Acute on chronic diastolic (congestive) heart failure; N15.1 Renal and perinephric abscess; E87.1 Hypo-osmolality and hyponatremia; N39.0 Urinary tract infection, site not specified; N32.1 Vesicointestinal fistula; E27.40 Unspecified adrenocortical insufficiency; E87.0 Hyperosmolality and hypernatremia; B96.1 Klebsiella pneumoniae [K. pneumoniae] as the cause of diseases classified elsewhere; I48.91 Unspecified atrial fibrillation; E03.9 Hypothyroidism, unspecified; E11.9 Type 2 diabetes mellitus without complications; E78.00 Pure hypercholesterolemia, unspecified; R63.0 Anorexia; Z95.3 Presence of xenogenic heart valve; Z79.899 Other long term (current) drug therapy; Z79.82 Long term (current) use of aspirin; Z79.02 Long term (current) use of antithrombotics/antiplatelets; Z86.73 Personal history of transient ischemic attack (TIA), and cerebral infarction without residual deficits; Z87.891 Personal history of nicotine dependence; Z79.890 Hormone replacement therapy; Z87.440 Personal history of urinary (tract) infections; Z79.84 Long term (current) use of oral hypoglycemic drugs; K59.00 Constipation, unspecified
CPT/HCPCS: 71045; 71046; 76775; 80048; 80053; 81003; 81015; 82024; 82533; 82962; 83735; 83880; 83930; 83935; 84100; 84300; 84439; 84443; 84481; 84484; 85025; 85027; 85610; 87040; 87077; 87086; 87186; 93005; 93308; 94640; 96360; 97110; 97116; 97163; 97530; 99285

== ENCOUNTER 2025-07-02 15:19 | Outpatient (RCR) | payer MEDICARE, SELFPAY ==
[2025-07-01 14:36] LABS: Glucose - Point of Care 149 mg/dl (70-99)
[2025-07-01 15:41] LABS: Glucose - Point of Care 142 mg/dl (70-99)
[2025-07-02 14:48] LABS: Glucose - Point of Care 182 mg/dl (70-99)
[2025-07-02 15:42] LABS: Glucose - Point of Care 150 mg/dl (70-99)
== END 2025-07-02 23:59 | disposition home or self-care (01) ==
LOC: CRHB 15:19
PROVIDERS: ATTENDING PHYSICIAN Thoracic Surgery (Cardiothoracic Vascular Surgery)
DX: Z95.2 Presence of prosthetic heart valve (principal)
CPT/HCPCS: 82962; G0422; G0423

== ENCOUNTER 2025-07-09 15:02 | Outpatient (RCR) | payer MEDICARE, SELFPAY ==
[2025-07-09 14:50] LABS: Glucose - Point of Care 101 mg/dl (70-99)
[2025-07-09 15:38] LABS: Glucose - Point of Care 109 mg/dl (70-99)
== END 2025-07-09 23:59 | disposition home or self-care (01) ==
LOC: CRHB 15:02
PROVIDERS: ATTENDING PHYSICIAN Thoracic Surgery (Cardiothoracic Vascular Surgery)
DX: Z95.2 Presence of prosthetic heart valve (principal)
CPT/HCPCS: 82962; G0422; G0423

== ENCOUNTER 2025-07-11 21:49 | Inpatient (IN) | payer MEDICARE, SELFPAY ==
[2025-07-11] VITALS (12 sets, daily range): BP systolic 64–115; BP diastolic 36–81
--- NOTE | 2025-07-11 19:34 | ED.GENMED ---
History of Present Illness
General
Chief Complaint: Abdominal Symptoms
Source: patient and spouse
Exam Limitations: none
Time Seen by Provider: 07/11/25 19:23
Nursing documentation reviewed up to this point in time: agreed with
History of Present Illness
History of Present Illness:
Note:
CHIEF COMPLAINT(S)
Diarrhea and vomiting.
HISTORY OF PRESENT ILLNESS
The patient is a 69-year-old female who began experiencing gastrointestinal symptoms yesterday, including diarrhea and vomiting. Her condition has worsened since onset, with increased frequency of diarrhea today. She reports not having ingested any
food or drink today. The patient recently underwent open heart surgery approximately six weeks ago for an aortic valve replacement. Post-surgery, she faced complications requiring a carotid stent placement due to a fragment dislodging. Currently,
she denies experiencing chest pain. She has a known history of heart failure and is on Lasix (furosemide) but has not taken it today. The patient denies any previous abdominal surgery or similar abdominal pain episodes.
PAST MEDICAL AND SURGICAL HISTORY
- Recent open heart surgery for aortic valve replacement
- Carotid stent insertion post-surgery
- Heart failure
CHRONIC MEDICAL CONDITIONS SIGNIFICANTLY AFFECTING CARE
Heart failure.
MEDICATIONS
Lasix (furosemide), among other unspecified medications. No doses were taken today.
PHYSICAL EXAM
General: Alert, no acute distress.
Skin: Warm, dry.
Head: Normocephalic, atraumatic.
Neck: Supple, trachea midline.
Eye Ears, nose, mouth and throat: Oral mucosa moist.
Cardiovascular: Normal peripheral perfusion, no edema.
Respiratory: Respirations are non-labored.
Gastrointestinal: Abdomen nondistended.
Back: Normal range of motion, normal alignment.
Musculoskeletal: Normal range of motion, normal strength.
Neurological: Alert and oriented to person, place, time, and situation, no focal neurological deficit observed.
Psychiatric: Cooperative, appropriate mood & affect.
PLAN
- Obtain a computed tomography scan of the chest, abdomen, and pelvis to evaluate current symptoms.
- Administer intravenous fluids to address low blood pressure.
- Evaluate for possible infectious causes, considering diarrhea and vomiting.
DIFFERENTIAL DIAGNOSIS
The Differential Diagnosis includes, in no particular order and is not limited to:
- Gastroenteritis
- Acute or chronic bowel obstruction
- Ischemic bowel disease
- Clostridioides difficile infection
- Diverticulitis
- Congestive heart failure exacerbation
- Medication side effects
- Electrolyte imbalance
- Mesenteric ischemia
- Abdominal aortic aneurysm
CARE-UPDATE
07/11/25 - 21:10
Blood pressure improved following administration of 2 liters normal saline. CTI-O and pelvis clear of findings; no signs of UTI. Patient experiencing copious diarrhea, raising concern for possible C. difficile infection; considering initiation of
oral vancomycin therapy. Hospitalist consultation recommended.
EKG
My independent EKG interpretation is:
- Time of EKG: Not specified
- Rhythm: Sinus rhythm
- Heart Rate: 96 beats per minute
- Abnormalities: Occasional premature ventricular contractions (PBCs)
- Conduction Block: Right bundle branch block
- Rosebud: Normal Rosebud
(Note: Details for MO interval, QRS duration, and QT interval were not provided in the combination machine tool setter.)
Disposition:
SUMMARY OF ENCOUNTER
The patient is a 69-year-old female who presented to the emergency department with complaints of diarrhea and vomiting, which started the day before. She has been unable to ingest any food or drink today. She has a history of heart failure and
underwent open heart surgery six weeks ago for an aortic valve replacement, followed by a carotid stent placement due to complications. She denies chest pain at present. Examination revealed normal peripheral perfusion and no acute distress but
copious diarrhea was noted. The CT of the chest, abdomen, and pelvis did not show any acute findings, raising a concern for possible C. difficile infection. Blood pressure improved after administration of IV fluids.
ASSESSMENT
The patient is likely experiencing acute renal failure secondary to hypovolemia from diarrhea.
PLAN
- Initiate oral vancomycin therapy considering possible C. difficile infection.
- Resume Lasix (furosemide) once renal function stabilizes and volume status is adequate.
- Monitor kidney function closely and adjust diuretics as necessary.
INDEPENDENT REVIEW OF LABS AND INTERPRETATION OF TESTS
My independent review of the CT scan of the chest, abdomen, and pelvis indicated no acute findings.
My independent EKG interpretation showed a sinus rhythm with a heart rate of 96 beats per minute and occasional premature ventricular contractions, along with a right bundle branch block.
MANAGEMENT OF THE PATIENTS CARE WAS DISCUSSED WITH
Hospitalist consultation recommended for admission and continued care.
FOLLOW-UP INSTRUCTIONS
Please call the office immediately to schedule a follow-up visit with your primary care physician upon discharge.
MEDICATION RECONCILIATION
Administered normal saline IV and planned to initiate oral vancomycin therapy for suspected C. difficile infection.
Lasix (furosemide) was held until renal function stabilizes.
MEDICAL DECISION MAKING
- Complexity of Data Reviewed: Chronic conditions affecting care include recent open-heart surgery, heart failure, aortic valve replacement, carotid stent insertion.
-Data:
Category 1:
The following testing was ordered: CT scan of chest, abdomen, and pelvis.
Category 2:
My independent EKG interpretation showed occasional premature ventricular contractions and right bundle branch block.
Category 3:
Discussion of management with a hospitalist was recommended for further inpatient care.
DIAGNOSIS
- Acute kidney failure (ICD-10: N17.9)
- Volume depletion (ICD-10: E86.0)
- Diarrhea (ICD-10: R19.7)
Past History
Past History
ED Past Medical History: HTN, Hypercholesterolemia, NIDDM, Hypothyroidism, Other (UTI with septicemia) and Other (Adrenal insufficiency, severe aortic stenosis)
ED Past Surgical History: Other (Skin excision)
Social History
Tobacco: Smoker
Alcohol: None
Drug: None
Personal:
Living: with family
Employment: Retired
Family History
Family History: Other (Noncontributory)
Phy Exam
Physical Exam
Physical Exam:
.
Course
Orders/Labs/Results
Orders:
Orders
07/11/25 19:32
Electrocardiogram (*1) Stat
Reason for Study: Abdominal Pain
Cardiac Monitoring- Treatment ONCE
EKG- Treatment ONCE
IV Insert/Care/Rem.- Treatment PRN
Straight cath- Treatment ONCE
Pulse Ox/cont/shift [RESP] Stat
Quantity: 1
07/11/25 19:34
0.9% Sodium Chloride 1000 ml [Nss] 2,000 ml IV BOLUS
07/11/25 19:37
Complete Blood Count/With Diff Urgent
Comprehensive Metabolic Panel Urgent
Cortisol, Random Urgent
Comment: ADD ON
Lactic Acid Urgent
Lipase Urgent
Troponin I Urgent
Blood Culture Q30M
FRANCIA Source: Blood/Venous
Specimen Description:
Blood Culture Q30M
FRANCIA Source: Blood/Venous
Specimen Description:
07/11/25 19:46
Urinalysis Reflex To Culture Urgent
Date Specimen was Collected: 07/11/25
Time Specimen was Collected: 19:45
Urine Microscopic Reflex Cult Urgent
C difficile Antigen & Toxins Urgent
FRANCIA Source: ST
Specimen Description:
Date Specimen was Collected: 07/11/25
Time Specimen was Collected: 19:45
Comment: ADD ON
Stool Culture Urgent
FRANCIA Source: Feces/Stool
Specimen Description:
Date Specimen was Collected: 07/11/25
Time Specimen was Collected: 19:45
07/11/25 20:14
Add On - Microbiology Urgent
Tests Added?: cdiff toxin
07/11/25 20:15
CT Abd/pel Without Iv Or Oral Urgent
Comment:
Reason For Exam: epigastric pain, n/v/d
07/11/25 21:07
Add On- LAB Urgent
Tests Added?: random cortisol
07/11/25 21:36
Admit/Transfer Patient As Directed
Co-Sign Provider:
Level of Care: Inpatient admission
Assign to:: Telemetry
Physician / Group: Aiden
Diagnosis: Gastroenteritis, PANTERA
Reason for Telemetry: Arrhythmia
Date to Stop Telemetry: 07/14/25
Time to Stop Telemetry: 11:00
Reason for Hospitalization: Gastroenteritis, PANTERA
Expected length of stay greater than two midnights?: Yes
ELOS- Estimated Length of Stay in days: 3
I certify the patient meets the requirements for IP care: Yes
Hydrocortisone Sod Succinate [Solu-Cortef] 50 mg IV NOW STA
PRN Pain Medication Management As Directed
May give lesser potent ordered pain med per pt: Yes
preference::
Protocol:: Medication orders for pain may be administered in a
manner that supports deferring to patient preference
when the pt is:
- Requesting an ordered lesser potent pain medication.
Least to most potent pain medications are defined
as: acetaminophen < NSAID < tramadol < opioids
(morphine, oxycodone, hydromorphone).
- Requesting a lesser dose of the same medication IF
ORDERED.
- Requesting a less intrusive route of administration
if both routes are prescribed by the provider (PO <
IV).
07/11/25 21:38
Code Status As Directed
Resuscitation Status: Full Code
07/11/25 22:27
Acetaminophen [Tylenol] 650 mg PO Q4HPRN PRN
Dextrose 50%-Water [Dextrose 50% Syringe] 12.5 grams IV [id number] PRN
Glucagon [GlucaGen] 1 mg IM PRN PRN
Lactated Ringers [Lr] 1,000 ml IV 100 mls/hr
Trimethobenzamide [Tigan] 200 mg IM Q6HPRN PRN
07/11/25 22:27
Activity As Directed
Activity Level: Ambulate
With Assistance
Bedside Glucose Monitoring As Directed
Frequency: AC&HS
Additional Instructions:: Change to q6h if pt on TPN, tube feeding or not eating
EKG with chest pain [ECG as needed] As Directed
ECG as needed for:: Chest Pain
I/O [Intake/ Output] As Directed
Frequency: Per unit guidelines
Vital Signs As Directed
Frequency: Per unit guidelines
Weight As Directed
Frequency: Daily
Oxygen Therapy [O2 Therapy] [RESP] Routine
Titrate/Wean O2 to maintain O2 sat greater than (%): 94
07/11/25 22:39
Lactate Level [Lactic Acid] Q6H
07/12/25 04:27
Lactate Level [Lactic Acid] Q6H
07/12/25 Breakfast
BRAT
At Your Request: Limited, Equipment Application Specialist Required
Does patient need a safe tray?: Yes
Comment: ER HOLD PATIENT
Basic Metabolic Panel IN AM
Complete Blood Count/No Diff IN AM
Glycohemoglobin (HgbA1c) IN AM
Magnesium IN AM
Levothyroxine [Synthroid] 75 mcg PO DAILY @ 0600
07/12/25 07:30
Insulin Aspart Corrective Low [Novolog Flexpen-Low Resistance] See Protocol SC AC
07/12/25 08:00
Apixaban [Eliquis] 5 mg PO BID
Clopidogrel Bisulfate [Plavix] 75 mg PO DAILY
Hydrocortisone Sod Succinate [Solu-Cortef] 50 mg IV Q12
Methenamine Hippurate [Hiprex] 1 gram PO BID
Metoprolol Xl [Toprol Xl] 25 mg PO BID
Rosuvastatin Calcium [Crestor] 20 mg PO DAILY
07/14/25 11:00
DC Protocol for Telemetry ONCE
Abnormal Lab Results
09/07/25 09/07/25
19:37 19:46
WBC 26.3 H 10^3/uL
(4.8-10.8)
RBC 3.46 L 10^6/uL
(4.20-5.40)
Hgb 11.1 L g/dL
(12.0-16.0)
Hct 34.1 L %
(37.0-47.0)
MCH 32.1 H pg
(27.0-31.0)
MCHC 32.6 L g/dL
(33.0-37.0)
RDW 18.0 H %
(11.5-14.5)
Plt Count 445 H 10^3/uL
(130-400)
MPV 11.4 H fL
(7.4-10.4)
Abs Immat Gran (auto) 0.3 H 10^3/uL
(0-0.05)
Absolute Neuts (auto) 18.4 H 10^3/uL
(1.4-6.5)
Absolute Lymphs (auto) 5.6 H 10^3/uL
(1.2-3.4)
Absolute Monos (auto) 0.9 H 10^3/uL
(0.1-0.6)
Absolute Eos (auto) 0.9 H 10^3/uL
(0-0.7)
Immature Gran % 1.2 H %
(0-0.5)
Potassium 3.4 L mmol/L
(3.5-5.1)
Carbon Dioxide 18 L mmol/L
(22-30)
Creatinine 1.9 H mg/dL
(0.6-1.0)
Glucose 173 H mg/dl
(70-99)
Lactic Acid 4.2 H* mmol/L
(0.7-2.0)
Ur Occult Blood Reflex 1+ A
(Negative)
Urine RBC 3-6 A /HPF
(0-2)
Urine Bacteria (Reflex) Few A
(Negative)
Urine Glucose 4+ A
(Negative)
Urine Albumin (Reflex) 2+ A
(Neg - Trace)
07/11/25 19:37
07/11/25 19:37
Vital Signs
Initial and Last Documented VS:
Initial Vital Signs
Pulse Resp BP Pulse Ox
106 18 64/44 100
07/11/25 19:18 07/11/25 19:18 07/11/25 19:18 07/11/25 19:18
Last Documented Vital Signs
Temp Pulse Resp BP Pulse Ox
99.3 F 110 32 114/63 99
07/11/25 19:40 07/11/25 23:15 07/11/25 23:15 07/11/25 23:10 07/11/25 23:15
*Pulse Oximetry
SaO2: 100
Oxygen Mode of Delivery: Room air
Patient hypoxic: no
*Critical Care Note
Total Time (30-74mins, 75-104mins- exclusive of procedures): 32
comment:
Critical care statement: A total of 32 minutes of critical care time was provided for this patient. This includes management of unstable vital signs, evaluation of the patient at bedside, reviewing the patient's pertinent medical records, discussion
with consultants, review of old EKGs and review of pertinent medical records. This time with separate from time utilized to perform the aforementioned documented procedures
ED Attending Note
-
Portions of this chart may have been created with voice recognition software.� Occasional wrong word or��sound alike� substitutions may have occurred due to the inherent limitations of voice recognition software.
Discharge Plan
Departure
Patient Disposition: Admit
Date of Disposition: 07/11/25
Time of Disposition: 21:07
Admit to: IMU
Presentation/result/management discussed w/ accepting MD/DO: Hospitalist
Patient with high blood pressure during this ER visit?: No
Condition: Fair
Discharge Problem:
PANTERA (acute kidney injury), Hypovolemia, Diarrhea
Interventions
Interventions:
*Risk Screen - Suicide Last Done: 07/11/25 19:21
*General Assessment Last Done: 07/11/25 19:21
*Neglect/Abuse Screening Last Done: 07/11/25 19:21
*ED COVID-19 Vaccine History Last Done: 07/11/25 19:21
XO-Npkcyv-Rkulvacurs Assessment Last Done: 07/11/25 20:49
[2025-07-11] MEDS: NSS 2000 IV (19:43)
[2025-07-11 19:48] LABS: Hematocrit 34.1 % (37.0-47.0); Hemoglobin 11.1 g/dL (12.0-16.0); Mean Corp Hgb Conc. 32.6 g/dL (33.0-37.0); Mean Corpuscular Volume 98.6 fL (81.0-99.0); Nucleated Red Blood Cells % 0 %; Platelet Count 445 10^3/uL (130-400); Red Cell Dist. Width 18.0 % (11.5-14.5)
[2025-07-11 20:06] LABS: ALT (SGPT) 16 U/L (0-35); AST (SGOT) 21 U/L (14-36); Albumin 4.4 g/dl (3.5-5.0); Alkaline Phosphatase 109 U/L (38-126); Blood Urea Nitrogen 13 mg/dl (7-17); Calcium 9.7 mg/dl (8.4-10.2); Carbon Dioxide 18 mmol/L (22-30); Chloride 103 mmol/L (98-107); Glucose 173 mg/dl (70-99); Lipase 111 U/L (23-300); Potassium 3.4 mmol/L (3.5-5.1); Sodium 135 mmol/L (135-145); Total Protein 7.4 g/dl (6.3-8.2); eGFR 27.88
[2025-07-11 20:16] LABS: Urine Character Clear (Clear)
[2025-07-11 20:17] LABS: Troponin I 0.014 ng/ml
[2025-07-11 20:29] LABS: Urine Squamous Cell 0-2 /LPF (Few); Urine Urothelial Cell 0-2 /LPF (FEW)
[2025-07-11 20:30] LABS: Urine White Cell 0-2 /HPF (0-5)
--- NOTE | 2025-07-11 21:43 | HPS.HSE ---
Family Physician
-
Family Physician: Kavitha Escalera
Chief Complaint
-
N/V/D
History of Present Illness
Patient is a 69y F with PMH significant for s/p AVR and aortic enlargement, post-op CVA s/p TCAR and subsequent hospitalization for CHF who presents to ED complaining of N/V/D since last PM. Patient states that she had been feeling fairly
well for the past few days. She was prescribed Bactrim DS BID x 3 days by her PCP for abnormal urinalysis and she completed this course on . No other new medications.
Son states that he got some new lunch meat for lunch on Saturday. Saturday evening, patient developed N/V/D and burning abdominal discomfort.
She has had persistent emesis and diarrhea since last PM. Diarrhea was initially brown / loose and has since been light colored and watery.
Patient felt slightly better this AM and ate some soup, but symptoms returned shortly thereafter.
She presents to the ED for further evaluation and treatment.
During my exam, patient has further emesis of 'beef broth' appearing liquid - likely from earlier soup.
Medical History
Past Medical History
Past Medical History: Reports Other
Additional Past Medical History:
Aortic Stenosis
Hypertension
HFpEF
Paroxysmal Atrial Fibrillation
DM-II
Panhypopituitarism (Rathke's Cleft Cyst)
Hypothyroidism
Adrenal Insufficiency
Recurrent UTIs
Diverticular Disease
Past Surgical History: Reports Other
Additional Past Surgical History:
BioAVR / Aortic Root Enlargement (05/27/25)
TCAR (May 2025)
Sigmoid Resection (Diverticulitis)
Pilonidal Cyst
Social History
Tobacco: Former Smoker (Quit smoking this past year. > 40 pack years total use.)
Alcohol: Former (Prior daily EtOH use - none since 09/2024.)
Drug: None
Family History
Family History: Not pertinent
Allergies / Home Medications
Allergies reflects when Allergies were last updated in [facility].
Home Medications with original date entered in [facility]
Allergy/Medication List:
Allergies
Allergy/AdvReac Type Severity Reaction Status Date / Time
No Known Allergies Allergy Verified 07/11/25 19:19
Home Medications
furosemide 20 mg tablet 20 mg PO DAILY Fluid retention/Swelling 03/04/23
hydrocortisone 10 mg tablet 20 mg PO DAILY Anti-inflammatory 03/04/23
levothyroxine 75 mcg tablet (Synthroid) 75 mcg PO DAILY Thyroid 09/17/24
lisinopril 5 mg tablet 10 mg PO DAILY Blood Pressure 05/04/25
pantoprazole 40 mg tablet,delayed release 40 mg PO DAILY Gastrointestinal Issue 05/04/25
sennosides 8.6 mg tablet (senna) 8.6 mg PO BID PRN constipation 06/08/25
acetaminophen 325 mg tablet 650 mg (2 x 325 mg) PO Q4HPRN PRN headache, pain, fever #0 tabs 06/12/25
apixaban 5 mg tablet 5 mg PO BID Arrhythmia #60 tabs 06/13/25
metoprolol succinate 25 mg tablet,extended release 24 hr 25 mg PO BID Heart disease/condition #60 tabs 06/13/25
blood sugar diagnostic (Contour Next Test Strips) ##100 06/14/25
clopidogrel 75 mg tablet 75 mg PO DAILY Blood clot prevention/tx #0 tabs 06/14/25
dapagliflozin propanediol 10 mg tablet (Farxiga) 10 mg PO DAILY Diabetes #30 tabs 06/14/25
lancets 21 gauge (Color Lancets) ##100 06/14/25
metformin 500 mg tablet 500 mg PO BID@0800,1700 Diabetes #60 tabs 06/14/25
methenamine hippurate 1 gram tablet 1 g PO BID Urinary issue #30 tabs 06/14/25
multivitamin 1 tab PO DAILY Supplement #0 tabs 06/14/25
rosuvastatin 20 mg tablet 20 mg PO DAILY High cholesterol #0 tabs 06/14/25
Review of Systems
-
History Source: Patient
A 12 point ROS was completed and negative except as noted: Yes
Constitutional: Reports Fatigue; Denies Fever or Chills
EENT: Denies Sore Throat
Respiratory: Denies Cough or Trouble Breathing
Cardiac: Denies Chest Pain or Palpitations
Abdomen/GI: Reports Abdominal Pain, Nausea, Vomiting and Diarrhea; Denies Bloody Stools or Black Stools
: Denies Dysuria, Frequency or Flank Pain
Musculoskeletal: Denies Joint Pain or Edema
Neurological: Denies Dizzy or Headache
Psych: Denies Depression or Anxiety
Physical Exam
Vital Signs
Vital Signs
Temp Pulse Resp BP Pulse Ox
99.3 F 97 21 100/54 98
07/11/25 19:40 07/11/25 21:00 07/11/25 21:00 07/11/25 21:00 07/11/25 21:00
Physical Exam
General: Other (69y F in mild distress due to nausea / abdominal pain.)
HEENT: Moist mucous membranes and PERRLA
Respiratory: Clear; No Wheezes, Rales or Rhonchi
Cardiac: S1/S2 and Regular Rhythm; No Murmur
GI: Soft, Non Tender, Non Distended, Normal Bowel Sounds and Other (No focal tenderness / rebound / guarding. Pos N/V during exam.)
Musculoskeletal: No Clubbing, No Cyanosis and No Edema
Neuro: AO x 3
Laboratory Results
-
07/11/25 19:37
07/11/25 19:37
Laboratory Results
Lactic Acid 4.2 mmol/L (0.7-2.0) H* 07/11/25 19:37
Total Bilirubin 0.7 mg/dl (0.2-1.3) 07/11/25 19:37
AST 21 U/L (14-36) 07/11/25 19:37
ALT 16 U/L (0-35) 07/11/25 19:37
Alkaline Phosphatase 109 U/L (38-126) 07/11/25 19:37
Troponin I 0.014 ng/ml 07/11/25 19:37
Lipase 111 U/L (23-300) 07/11/25 19:37
Impression/Plan
-
A/P: Patient is a 69y F with PMH significant for s/p BioAVR, post-op CVA and subsequent hospitalization for CHF who presents to ED complaining of N/V/D since last PM.
Acute Gastroenteritis
- Admit for further evaluation and treatment.
- Likely secondary to food borne pathogen / lunch meat at midday meal yesterday.
- ? also related to abx use, etc.
- Supportive care including IVFs, antiemetics (Tigan given long QT), etc.
- Follow-up stool studies.
- Follow for clinical improvement.
- BRAT diet as tolerated.
PANTERA
Lactic Acidosis
- SCr = 1.9 compared to known baseline of 0.5.
- Likely combination of pre-renal etiology / volume losses +/- Bactrim use / med effect.
- Hold nephrotoxic agents, diuretics, etc.
- IVF support as noted above.
- Follow serial lactate. Follow renal function for return to baseline.
Panhypopituitarism
Adrenal Insufficiency
Hypothyroidism
- Patient maintained on hydrocortisone daily.
- Given acute illness, hypotension, etc - will stress dose steroids for 1-2 days and then return to usual dose.
- Continue current T4 replacement.
Aortic Stenosis s/p BioAVR
Chronic HFpEF
- Stable. No evidence of volume overload on exam.
- Hold Farxiga / Lasix acutely.
Paroxysmal Atrial Fibrillation
- Stable. Continue metoprolol with holding parameters.
- Continue Eliquis for stroke risk reduction.
s/p CVA
- CVA POD #1 after AVR. Transferred to [place] for TCAR.
- No new neurologic deficits.
- Continue Eliquis as noted above.
- Continue Plavix given intravascular stent.
DM-II
- Stable. Hold PO metformin acutely.
- Follow glucose and cover with SSI as needed - especially on higher dose steroids.
- Update A1C.
Anemia of Chronic Disease
- Stable. Hgb is improved from prior and appears near chronic baseline.
- Follow for changes with IVFs / volume expansion.
- No evidence at present of active bleeding.
Frequent UTIs
- UA not suggestive of UTI at present.
- Just completed 3 day course of Bactrim on .
- Continue methenamine for prevention and monitor for any symptoms.
DVT Prophylaxis: On Eliquis
Code Status: Full
[2025-07-11] MEDS: SOLU-CORTEF 50 MG IV (21:53)
[2025-07-11 22:17] LABS: Cortisol, Random 4.5 ug/dl
[2025-07-11] MEDS: LR 1000 IV (22:52)
[2025-07-11] MEDS: TIGAN 200 MG IM (22:54)
[2025-07-12] VITALS (27 sets, daily range): BP systolic 94–167; BP diastolic 53–139; BMI 29.4; BMI 29.6
[2025-07-12] MEDS: COMPAZINE 10 MG IV ×2 (02:37→09:46)
[2025-07-12] MEDS: TIGAN 200 MG IM (05:33)
[2025-07-12 05:51] LABS: Blood Urea Nitrogen 17 mg/dl (7-17); Calcium 9.1 mg/dl (8.4-10.2); Carbon Dioxide 18 mmol/L (22-30); Chloride 105 mmol/L (98-107); Estimated Creatinine Clearance 33 ml/min; Glucose 185 mg/dl (70-99); Magnesium 1.5 mg/dl (1.6-2.3); Potassium 3.4 mmol/L (3.5-5.1); Sodium 137 mmol/L (135-145); eGFR 34.27
[2025-07-12 05:58] LABS: Hematocrit 32.0 % (37.0-47.0); Hemoglobin 10.7 g/dL (12.0-16.0); Mean Corp Hgb Conc. 33.4 g/dL (33.0-37.0); Mean Corpuscular Volume 100.0 fL (81.0-99.0); Platelet Count 348 10^3/uL (130-400); Red Cell Dist. Width 18.0 % (11.5-14.5)
[2025-07-12] MEDS: MAGNESIUM SULFATE 50 IV (06:28)
[2025-07-12] MEDS: KCL 270 MEQ IV (06:29)
[2025-07-12] MEDS: LOPRESSOR 5 MG IV (06:35)
[2025-07-12] MEDS: SYNTHROID PO (07:44)
[2025-07-12] MEDS: CRESTOR PO (08:07)
[2025-07-12] MEDS: ELIQUIS PO (08:07)
[2025-07-12] MEDS: PLAVIX PO (08:08)
[2025-07-12 08:41] LABS: Glucose - Point of Care 172 mg/dl (70-99)
--- NOTE | 2025-07-12 08:43 | W.PN.HOSP.TC ---
Addendum entered and electronically signed by Greg Boyer MD 07/12/25 14:51:
Correction:
DVT prophylaxis�SCDs, hold Eliquis due to coffee-ground emesis and n.p.o. status
Original Note:
Today's Communication/Plan
-
see bold
Assessment / Plan
Assessment / Plan
HPI: 69y F with PMH significant for s/p BioAVR, post-op CVA and subsequent hospitalization for CHF who presents to ED complaining of N/V/D since last PM.
Sepsis
Acute Gastroenteritis
Lactic acidosis
- Transferred to the IMU 07/12 for closer monitoring
- Appreciate GI input, NG tube inserted 07/12
- Continue n.p.o., IV fluids, IV Zosyn
- Follow-up stool studies, trend lactic acid
Acute toxic metabolic encephalopathy
- Due to sepsis, provide supportive care
Coffee-ground emesis
- Started on Protonix 40 mg IV twice daily
- Hold Eliquis, trend hemoglobin
PANTERA
- Likely due to dehydration +/- Bactrim use / med effect
- Creatinine 1.6 today, down from 1.9 upon admission
- Trend creatinine, no nephrotoxic drugs/NSAIDs
Hypomagnesemia
Hypokalemia
- Replete as needed
Prolonged QTc
- Avoid Zofran and other QTc prolonging agents
- Continue Tigan IM as needed
Panhypopituitarism
Adrenal Insufficiency
Hypothyroidism
- Patient maintained on hydrocortisone daily.
- Given acute illness, hypotension, etc - will stress dose steroids for 1-2 days and then return to usual dose.
- Continue current T4 replacement.
Aortic Stenosis s/p BioAVR
Chronic HFpEF
- Stable. No evidence of volume overload on exam.
- Hold Farxiga / Lasix acutely.
Paroxysmal Atrial Fibrillation
- Oral metoprolol changed to IV metoprolol prn
- Holding Eliquis while patient is n.p.o.
S/p CVA
- CVA POD #1 after AVR. Transferred to [place] for TCAR.
- No new neurologic deficits.
- Holding Eliquis while patient is n.p.o.
- Continue Plavix when able
DM-II
- Hemoglobin A1c 5.7. Hold PO metformin acutely.
- Follow glucose and cover with SSI as needed - especially on higher dose steroids.
Anemia of Chronic Disease
- Trend hemoglobin
Frequent UTIs
- UA not suggestive of UTI at present.
- Just completed 3 day course of Bactrim on .
- Continue methenamine for prevention and monitor for any symptoms.
DVT Prophylaxis: Subcu Lovenox while holding Eliquis
Code Status: Full
Updated at bedside 07/12
Total time spent to see the patient on the floor, examine the patient, review data and lab results, discuss treatment plan with patient, nursing staff around 52 minutes.
Physical Exam
General: Appears to not feel well, no acute distress
HEENT: Normocephalic, Atraumatic, EOMI, MMM
Respiratory: Clear to Auscultation bilaterally
Cardiac: Normal S1/S2, tachycardic rate and Rhythm
GI: Soft, distended, hypoactive Bowel Sounds, diffusely tender
Extremities: No Clubbing, Cyanosis, or Edema
Neuro: Confused
Anticipated Discharge: > 48 hours
Subjective/Interval History
-
Date of Service: July 12, 2025
Patient continues to have nausea, vomiting, diarrhea. She also complains of abdominal pain. She is confused. Emesis was coffee-ground. Denies chest pain, denies shortness of breath. No fever.
Objective Data
-
Labs:
Laboratory Results
07/12/25
05:17
WBC 27.7 H
Hgb 10.7 L
Hct 32.0 L
Plt Count 348 D
Sodium 137
Potassium 3.4 L
Chloride 105
Carbon Dioxide 18 L
BUN 17
Creatinine 1.6 H
Glucose 185 H
Calcium 9.1
Vital Signs:
Vital Signs
Temp Pulse Resp BP Pulse Ox
97.2 F 119 18 144/67 100
07/12/25 04:29 07/12/25 06:17 07/12/25 04:29 07/12/25 06:17 07/12/25 04:29
[2025-07-12] MEDS: PROTONIX IV 40 MG IV ×2 (09:22→21:18)
[2025-07-12] MEDS: NSS (PRESERVATIVE FREE) 10 ML IV ×2 (09:23→21:18)
[2025-07-12] MEDS: SOLU-CORTEF 50 MG IV ×2 (09:24→21:18)
[2025-07-12] MEDS: LR 1000 IV ×2 (09:25→21:18)
[2025-07-12] MEDS: NOVOLOG FLEXPEN-LOW RESISTANCE 1 UNITS SC ×2 (09:46→12:14)
--- NOTE | 2025-07-12 09:56 | PTCARENOTE ---
Around 6:30 Pt's TELE showed to be sustaining in the 120s, VS obtained, BP was elevated BONE GRINDER notified & ordered Metoprolol. After administrated TELE showed pt was in the 90s.
[2025-07-12] MEDS: ZOSYN 50 IV ×3 (10:32→23:55)
[2025-07-12 10:39] LABS: Glycohemoglobin (HgbA1c) 5.7 % (4.0-5.6)
--- NOTE | 2025-07-12 11:36 | PTCARENOTE ---
Pt with new onset of confusion for this RN, only AAO to self, lactic 6.6, pt becoming more drowsy/lethargic and less redirectable, MD made aware, tx to IMU placed. Stool cultures sent. Heme positive stool, and GI aware, no new orders at this time.
--- NOTE | 2025-07-12 11:38 | CON.GI ---
Addendum entered and electronically signed by Bri Kay DO 07/12/25 18:10:
Patient seen and examined independently of COUNCIL ON AGING DIRECTOR. I agree with her note with my additions below
Anjelica is a 69-year-old female with history of aortic stenosis A-fib adrenal insufficiency, prior colovesicular fistula and abscess with robotic sigmoidectomy in the past, A-fib with prior RVR on Eliquis who had a difficult admission in May where
she underwent a procedure then had a CVA and was transferred to [place] for TCAR on Plavix May 2025. She was here in June with CHF hyponatremia and UTI. She does get very confused during infections according to her . She was on recent
Bactrim for recurrent UTI symptoms then started with nausea vomiting and abdominal pain. She has had multiple episodes of brown watery stools roughly every hour according to nursing and also emesis that looks just like the stool. There is no overt
blood in the vomit.
In the emergency room she has a marked leukocytosis and a lactic acidosis. She is now febrile to 100.8, she is tachycardic into the 130s. She is being transferred to the ICU.
On exam she is tachycardic, she is somnolent but responds to questions. Her abdomen is soft but tender. Her is at bedside helping with some of the history
She underwent CT scan on 07/11/2025 for nausea vomiting diarrhea which was done without IV or oral contrast. It is not in the impression but the small bowel looks potentially thickened according to my view. Moderate size hiatal hernia.
So far her testing blood cultures are pending, C. difficile was antigen positive toxin negative, negative for norovirus, no white blood cells, culture pending, Yersinia pending.
Zosyn was started. ID was consulted. Her Eliquis was on hold but still taking Plavix. Antibiotics were broadened and added vancomycin and Flagyl.
We told nursing if she vomited again to place an NG tube.
NG tube was placed which I can see on x-ray. Having brown output.
Patient's hemoglobin is 10.7 which is around her baseline
# Sepsis from unclear etiology most likely GI tract/small bowel
-- Significant leukocytosis 27,000 with elevated lactate that appears to be improving with fluids
-- On empiric antibiotics
-- NG tube in place hopefully to decompress and prevent aspiration of this brown liquid
-- The vomiting is probably occurring during cramping and pain during the evacuation/bowel movement
--Small bowel looks thickened to me on CT scan. If objectively clinically she is not improving with put some oral contrast through the NG tube and repeat the CT scan with IV contrast
-- Patient has a significant amount of plaque throughout the aorta. She has been on anticoagulation so the likelihood of ischemic is less likely. She is also not having bloody stool and is mainly incontinent brown diarrhea
-- Reviewed other pustulous notes including infectious disease
-- Informed her that she is very ill
-- Will monitor and follow-up
Original Note:
Consultation
-
Date/Time Consultation Requested: 07/12/25 1100
Date/Time Consultation Performed: 07/12/25 1130
Requesting Provider: Greg Boyer MD
Performing Provider: MERISSA Hogue, bri Kay DO
Reason for Consultation: coffee ground emesis, diarrhea
Medical History
Chief Complaint / HPI
Chief Complaint: nausea, vomiting, diarrhea,abdominal pain
History of Present Illness:
Pt is a 69yo with hx prior robotic sigmoidectomy with takedown on colovesicalar fistula/perinephric abscess , colon polyps, HTN, hyperlipidemia, NIDDM, adrenal insufficiency, afib with prior RVR on Eliquis with admission in May with with
prior AVR and aortic root enlargement with CVA and transfer to [place] for TCAR on Plavix in 05/2025, then return in June with CHF, hyponatremia and UTI. She was on recent Bactrim for possible recurrent UTI symptoms with onset of nausea, vomiting,
and abdominal pain. Asked to see for coffee ground emesis. Pt did have CT 07/11 with Cholelithiasis, borderline prominent size gallbladder. No biliary tract dilatation. Markedly limited evaluation of the organs of the abdomen including the intestinal
tract without oral or intravenous contrast, without intestinal obstruction or free air. Unremarkable appendix. Moderate size hiatal hernia. Labs notable for rise in lactate and WBC after admission. PANTERA, K 3.4, with normal LFT's and lipase.
In review with family pt began with symptoms over the weekend with inability eat with vomiting and then diarrhea and upper abdominal pain. Per family at bedside she was noted with several episodes of emesis then vomiting large volume of dark
emesis this am. She also had diarrhea. Since admission she is noted with WBC and lactate with further rise after admission, tachycardia and change in mental status. NO chronic issues with dysphagia, GERD, constipation or bleeding.
03/06/23 flex flako - Diverticulosis in the sigmoid colon.
- Erythematous mucosa in the sigmoid colon.
- No specimens collected.
05/10/2022 colon walp for screeing - Diverticulosis in the left colon and in the right
colon.
- One 5 mm polyp at the ileocecal valve, removed with
a jumbo cold forceps. Resected and retrieved.
- Four small polyps in the ascending colon, removed
with a jumbo cold forceps. Resected and retrieved.
- One 15 mm polyp in the distal ascending colon,
removed with a hot snare. Resected and retrieved.
Injected.
- Congested and hemorrhagic mucosa in the sigmoid
colon. Biopsied.
bx SSA, HP polyp, no colitis seen
Past Medical History
Past Medical History: Arrhythmias (afib with RVR), CHF, CVA, HTN, Hypercholesterolemia, NIDDM, Valvular Disease () and Other (hyponatremia, prior UTI, enterovscial fistula withabsc, adrenal insufficiency, colon polyps)
Past Surgical History: Bowel Resection ( robotic sigmoidectomy with takedown on colovesicalar fistula) and Cardiac (AVR, aortic root enlargement 06/2025 with complication of CVA wit hhx tp [facility] for TC[facility],)
Social History
Tobacco: Former Smoker
Alcohol: Former (glass wine daily til last year )
Drug: None
Personal:
Living: With Family
Employment: Retired
Family History
Family History: Other (no family hx GI issues )
Allergies / Home Medications
Allergy/AdvReac Type Severity Reaction Status Date / Time
No Known Allergies Allergy Verified 07/11/25 19:19
�Medication �Instructions �Recorded
furosemide 20 mg tablet 20 mg PO DAILY Fluid 03/04/23
retention/Swelling
hydrocortisone 10 mg tablet 20 mg PO DAILY Anti-inflammatory 03/04/23
levothyroxine 75 mcg tablet 75 mcg PO DAILY Thyroid 09/17/24
(Synthroid)
lisinopril 5 mg tablet 10 mg PO DAILY Blood Pressure 05/04/25
pantoprazole 40 mg tablet,delayed 40 mg PO DAILY Gastrointestinal 05/04/25
release Issue
sennosides 8.6 mg tablet (senna) 8.6 mg PO BID PRN constipation 06/08/25
acetaminophen 325 mg tablet 650 mg (2 x 325 mg) PO Q4HPRN PRN 06/12/25
headache, pain, fever #0 tabs
apixaban 5 mg tablet 5 mg PO BID Arrhythmia #60 tabs 06/13/25
metoprolol succinate 25 mg 25 mg PO BID Heart 06/13/25
tablet,extended release 24 hr disease/condition #60 tabs
blood sugar diagnostic (Contour ##100 06/14/25
Next Test Strips)
clopidogrel 75 mg tablet 75 mg PO DAILY Blood clot 06/14/25
prevention/tx #0 tabs
dapagliflozin propanediol 10 mg 10 mg PO DAILY Diabetes #30 tabs 06/14/25
tablet (Farxiga)
lancets 21 gauge (Color Lancets) ##100 06/14/25
metformin 500 mg tablet 500 mg PO BID@0800,1700 Diabetes 06/14/25
#60 tabs
methenamine hippurate 1 gram tablet 1 g PO BID Urinary issue #30 tabs 06/14/25
multivitamin 1 tab PO DAILY Supplement #0 tabs 06/14/25
rosuvastatin 20 mg tablet 20 mg PO DAILY High cholesterol #0 06/14/25
tabs
Review of Systems
-
History Source: Patient and Family
Constitutional: Reports No Symptoms
EENT: Reports No Symptoms
Abdomen/GI: Reports Abdominal Pain, Nausea, Vomiting and Diarrhea
: Reports Other (recent UTI)
Musculoskeletal: Reports No Symptoms
Skin: Reports No Symptoms
Neurological: Reports Dizzy and Weakness
Endocrine: Reports No Symptoms
Hematologic/Lymphatic: Reports No Symptoms
Vital Signs
Temp Pulse Resp BP Pulse Ox
98.3 F 122 18 111/64 99
07/12/25 11:35 07/12/25 11:35 07/12/25 11:35 07/12/25 11:35 07/12/25 11:35
Physical Exam
Exam
General: Other (lethargic but arousable and answering some questions )
HEENT: Normocephalic and Anicteric
Respiratory: Clear
Cardiac: Other (tachy)
GI: Soft, Non Distended, Tender (epigastric ) and Other (reviewed image of large volume dark emesis this am)
Rectal: Other (brown then blood tinged black watery stool per staff )
Musculoskeletal: No Clubbing and No Cyanosis
Skin: Warm and Dry
Neuro: Other (sleepy but arousable )
Psych: Calm
Results
WBC 27.7 10^3/uL (4.8-10.8) H 07/12/25 05:17
Hgb 10.7 g/dL (12.0-16.0) L 07/12/25 05:17
Hct 32.0 % (37.0-47.0) L 07/12/25 05:17
MCV 100.0 fL (81.0-99.0) H 07/12/25 05:17
Plt Count 348 10^3/uL (130-400) D 07/12/25 05:17
Absolute Neuts (auto) 18.4 10^3/uL (1.4-6.5) H 07/11/25 19:37
Sodium 137 mmol/L (135-145) 07/12/25 05:17
Potassium 3.4 mmol/L (3.5-5.1) L 07/12/25 05:17
Chloride 105 mmol/L (98-107) 07/12/25 05:17
Carbon Dioxide 18 mmol/L (22-30) L 07/12/25 05:17
BUN 17 mg/dl (7-17) 07/12/25 05:17
Creatinine 1.6 mg/dL (0.6-1.0) H 07/12/25 05:17
Calcium 9.1 mg/dl (8.4-10.2) 07/12/25 05:17
Total Bilirubin 0.7 mg/dl (0.2-1.3) 07/11/25 19:37
AST 21 U/L (14-36) 07/11/25 19:37
ALT 16 U/L (0-35) 07/11/25 19:37
Alkaline Phosphatase 109 U/L (38-126) 07/11/25 19:37
Lipase 111 U/L (23-300) 07/11/25 19:37
Diagnostic Image Results:
07/12/25 CT Abd/pel Without Iv Or Oral
Cholelithiasis, borderline prominent size gallbladder. No biliary tract dilatation.
Markedly limited evaluation of the organs of the abdomen including the intestinal tract without oral or intravenous contrast, without intestinal obstruction or free air.
Unremarkable appendix.
Moderate size hiatal hernia.
Prior GI Procedures:
03/06/23 flex flako - Diverticulosis in the sigmoid colon.
- Erythematous mucosa in the sigmoid colon.
- No specimens collected.
05/10/2022 colon walp for screeing - Diverticulosis in the left colon and in the right
colon.
- One 5 mm polyp at the ileocecal valve, removed with
a jumbo cold forceps. Resected and retrieved.
- Four small polyps in the ascending colon, removed
with a jumbo cold forceps. Resected and retrieved.
- One 15 mm polyp in the distal ascending colon,
removed with a hot snare. Resected and retrieved.
Injected.
- Congested and hemorrhagic mucosa in the sigmoid
colon. Biopsied.
bx SSA, HP polyp, no colitis seen
Assessment / Plan
-
Pt is a 69yo with hx prior robotic sigmoidectomy with takedown on colovesicalar fistula , colon polyps, HTN, hyperlipidemia, NIDDM, adrenal insufficiency, afib with prior RVR on Eliquis with admission in May with with prior AVR and aortic
root enlargement with CVA and transfer to [place] for TCAR on Plavix in 05/2025, then return in June with CHF, hyponatremia and UTI. She was on recent Bactrim for possible recurrent UTI symptoms with onset of nausea, vomiting, and abdominal pain.
Asked to see for coffee ground emesis. Pt did have CT 07/11 with Cholelithiasis, borderline prominent size gallbladder. No biliary tract dilatation. Markedly limited evaluation of the organs of the abdomen including the intestinal tract without oral
or intravenous contrast, without intestinal obstruction or free air. Unremarkable appendix. Moderate size hiatal hernia. Labs notable for rise in lactate and WBC after admission. PANTERA, K 3.4, with normal LFT's and lipase. In review with family pt
began with symptoms over the weekend with inability eat with vomiting and then diarrhea and upper abdominal pain. Per family at bedside she was noted with several episodes of emesis then vomiting large volume of dark emesis this am. She also had
diarrhea. Since admission she is noted with WBC and lactate with further rise after admission, tachycardia and change in mental status. hx flex sig 2022 with diverticulosis, 05/2022 colon Walp with SSA, HP, polyps, no colitis seen.
-nausea/vomiting(dark emesis) diarrhea/abdominal pain
-tachycardia
-elevated lactate level with rise after admission
-leukocytosis
-PANTERA on admission
-moderate HH on imaging
-borderline prominent gallbladder on imaging
- with prior AVR and aortic root enlargement with CVA and transfer to [place] for TCAR on Plavix in 05/2025
-admits in June with CHF, hyponatremia and UTI with recent bactrim use
other med problems:
-hx afib on Eliquis
-robotic sigmoidectomy with takedown on colovesicular fistula
-colon polyps
-hx hyponatremia
-cholelithiasis
PLAN:
etiology of symptoms related to infectious process with sepsis - c-diff with diarrhea, UTI related, GI - norovirus, vs less likely obstructive issue with diarrhea but is noted with large volume emesis after admission vs other
agree with transfer
if further vomiting consider NGT
NPO
cont antiemetics
if continued large volume vomiting consider oral contrast imaging if able vs surgical eval to make sure no obstructive process
cont IV abx just added this am
check stool studies and add norovirus
blood cx pending
close follow of labs
current Eliquis on hold and cont Plavix but unable to take
updated family at bedside
-
-
Thank you for consultation and allowing me to participate in the patient's care. Please call the human relations professor GI physician during the after hours with any questions or concerns.
[2025-07-12 12:12] LABS: Glucose - Point of Care 185 mg/dl (70-99)
--- NOTE | 2025-07-12 12:43 | CM ---
Reviewed the chart notes and spoke with the patient's spouse at the bedside. Patient sleeping soundly. Patient resides with spouse in two story home with two steps to enter. The patient has no DME/SNF in past, but is current with [facility] services
since cardiac surgery. Pharmacy of choice is [facility]. Patient is being transferred to higher level of care unit. CM continues to be available to patient/family and is monitoring medical plan for needs at discharge.
Plan: Discharge plans will depend on the patient's progress.
--- NOTE | 2025-07-12 13:20 | WOUNDNOTE ---
WO RN note: Patient admitted with acute kidney injury
See H&P for complete history.
PMH: Patient is a 69y F with PMH significant for s/p AVR and aortic enlargement, post-op CVA s/p TCAR and subsequent hospitalization for CHF who presents to ED complaining of N/V/D since last PM. DM, diarrhea, stroke, HTN, rectal abscess.
Wound Location and type/assessment: Patient admitted with: Nearly closed sternal surgical wound. Distal portion of healed surgical site with reid dry base, no signs of infection. Suspect delayed healing due to being in crease of skin. Patient turned
to side on own, frequent loose stools causing incontinent associated skin damage. Perineum is red and raw appearing. Thin pink discolored line of skin on gluteal cleft, suspect MASD related. Asked PCT for Calazime. Heels are blanchable red, unable
to keep pillow under calves at this time since patient very restless, moving legs frequently.
Appetite: clears, poor intake due to nausea.
Pressure redistribution devices in place: On Accumax, getting ready to transfer to IMU.
Plan: Small silicone foam applied to sternum. Asked PCT to obtain barrier cream for perineum.
Will confirm orders with hospitalist and updated nurse Mags. Updated care plan and will follow as needed.
Note to case management of equipment requested for discharge:none
Recommend follow up with surgeon.
--- NOTE | 2025-07-12 14:09 | PTCARENOTE ---
Pt transferred to ICU as IMU overflow, report called to MAX Mittal. NGT and rectal trumpet placed upon transfer. IVF infusing, pt transported with portable gambling monitor and defib on bed.
[2025-07-12 15:09] LABS: Blood Urea Nitrogen 21 mg/dl (7-17); Calcium 7.9 mg/dl (8.4-10.2); Carbon Dioxide 15 mmol/L (22-30); Chloride 109 mmol/L (98-107); Estimated Creatinine Clearance 52 ml/min; Glucose 157 mg/dl (70-99); Magnesium 2.0 mg/dl (1.6-2.3); Potassium 4.9 mmol/L (3.5-5.1); Sodium 134 mmol/L (135-145); eGFR > 60.00
[2025-07-12 15:14] LABS: Troponin I 0.014 ng/ml
--- NOTE | 2025-07-12 15:49 | CON.ID ---
Consultation
-
Date/Time Consultation Requested: 07/12/2025 1505
Date/Time Consultation Performed: 07/12/2025 1530
Requesting Provider: Dr. Boyer
Performing Provider: Dr. Orellana
Reason for Consultation: Clinical sepsis; C. difficile colitis
Chief Complaint / Past History
History of Present Illness
Anjelica Newman is a 69-year-old female with a significant past medical history of aortic stenosis, P A-fib, DM and adrenal insufficiency being evaluated at the request of Dr. Boyer in regards to clinical sepsis. History is obtained from chart review,
along with patient interview.
The patient presented to [facility] on 07/[facility] with complaints of nausea, vomiting and diarrhea over the prior 24 hours. She recently had a significant hospitalization following AVR and aortic enlargement procedures, along with a TACR
procedure. She recently was prescribed a course of Bactrim for reported abnormal urinalysis and she completed this several days prior to admission. According to ER notes, she had eaten lunch meat on Saturday and later that evening developed
significant nausea, vomiting and diarrhea along with burning abdominal discomfort. Persistent emesis was noted, along with diarrhea that progressed to light-colored and watery.
Workup in the emergency room revealed a marked leukocytosis, and lactic acidosis. Additionally, she has developed A-fib with rapid ventricular response. C. difficile testing is positive for antigen, but toxin negative. Infectious Diseases is
asked to comment upon further antimicrobial management.
Past History
Additional Past Medical History:
Aortic Stenosis
Hypertension
HFpEF
Paroxysmal Atrial Fibrillation
DM-II
Panhypopituitarism (Rathke's Cleft Cyst)
Hypothyroidism
Adrenal Insufficiency
Recurrent UTIs
Diverticular Disease
Additional Past Surgical History:
BioAVR / Aortic Root Enlargement (05/27/25)
TCAR (May 2025)
Sigmoid Resection (Diverticulitis)
Pilonidal Cyst
Allergy History:
No Known Allergies Allergy (Verified 07/11/25 19:19)
Medications Reviewed: Yes
Current Antibiotics:
Zosyn 2.25 gm IV q.6 hours
Social History
Tobacco: Former Smoker
Alcohol: Former
Drug: None
Family History
Family History: Unable to Obtain
Review of Systems
Vital Signs
Temp Pulse Resp BP Pulse Ox
98.7 F 118 31 135/66 99
07/12/25 13:30 07/12/25 14:45 07/12/25 14:45 07/12/25 14:45 07/12/25 14:08
Physical Exam
Lab / Diagnostic Study Results
07/12/25 05:17
07/12/25 14:42
Abs Immat Gran (auto) 0.3 10^3/uL (0-0.05) H 07/11/25 19:37
Absolute Neuts (auto) 18.4 10^3/uL (1.4-6.5) H 07/11/25 19:37
Absolute Lymphs (auto) 5.6 10^3/uL (1.2-3.4) H 07/11/25 19:37
Absolute Monos (auto) 0.9 10^3/uL (0.1-0.6) H 07/11/25 19:37
Absolute Basos (auto) 0.2 10^3/uL (0-0.2) 07/11/25 19:37
Immature Gran % 1.2 % (0-0.5) H 07/11/25 19:37
Neutrophils % 70.0 % (42.2-75.2) 07/11/25 19:37
Lymphocytes % 21.2 % (20.5-51.1) 07/11/25 19:37
Monocytes % 3.5 % (1.7-9.3) 07/11/25 19:37
Eosinophils % 3.5 % (0-6) 07/11/25 19:37
Basophils % 0.6 % (0-2) 07/11/25 19:37
Lactic Acid 3.1 mmol/L (0.7-2.0) H 07/12/25 14:42
Ur Squamous Epith Cells 0-2 /LPF (Few) 07/11/25 19:46
Microbiology Results
Micro:
07/12/25 11:37 Salmonella/Shigella Culture - Pending
Feces/Stool Campylobacter Culture - Pending
- Pending
Shiga Toxin Test - Pending
Stool Leukocytes - Final
07/12/25 11:37 Cryptosporidium/Giardia - Final
Feces/Stool Negative for Cryptosporidium and/or Giardia Lamblia
antigens.
C. difficile GDH Antigen & Toxins - Final
C. difficile antigen positive, toxin negative.
Clostridium difficile present, but toxin not detected.
Patient may be a carrier, colonized with nontoxinogenic
strain or the level of toxin in sample is below detection
limits. This information should be used in conjunction with
the patient's clinical history.
- Pending
07/11/25 19:37 Blood Culture - Pending
Blood/Venous
07/11/25 19:37 Blood Culture - Pending
Blood/Venous
Imaging:
07/11/2025 CT abdomen/pelvis without contrast: evaluation is limited without intravenous or oral contrast. No gross focal intrinsic abnormality of the unopacified liver, spleen, pancreas, kidneys or adrenal glands. No significant perinephric
stranding. Small gallstones are seen within a borderline prominent gallbladder. No biliary tract dilatation. Evaluation of the intestinal tract is markedly limited, but no intestinal obstruction or free air is noted. Please see full dictation
for additional detail.
Assessment / Plan
Clinical sepsis
A-fib with RVR.
GI bleed
Marked leukocytosis
C. difficile antigen (+) / toxin (-)
Diarrhea
Lactic acidosis
Aortic Stenosis
Hypertension
HFpEF
Paroxysmal Atrial Fibrillation
DM-II
Panhypopituitarism (Rathke's Cleft Cyst)
Hypothyroidism
Adrenal Insufficiency
Recurrent UTIs
Diverticular Disease
Recommendations:
At present, not clear whether leukocytosis and diarrhea secondary to C. difficile, given that no toxin has been found, although cannot completely rule out C. difficile as an etiology.
Other potential sources include biliary or diverticular disease.
Begin metronidazole 500 mg IV q.8 hours. Patient currently NPO which precludes the use of enteral Vanco. Will initiate vancomycin enema 500 mg q.6 hours.
Continue with Zosyn for the present. Increase to 3.375 gm IV q.6 hours
Follow pending cultures (blood, stool)
Monitor white count and temperature curve.
Monitor stool output.
Further recommendations as additional data is returned.
[2025-07-12] MEDS: ZOSYN IV (16:30)
[2025-07-12] MEDS: OFIRMEV 100 IV (16:33)
--- NOTE | 2025-07-12 16:45 | PTCARENOTE ---
Received pt. as IMU overflow transfer from into rm [id number] @ approx 1330. Pt. drowsy/lethargic; opens eyes to verbal stimuli/tracks; oriented to self only and required reorientation to time/place; denies pain. ST on monitor. SpO2 100% on RA; shallow
breaths and tachypneic @ x's. +BS, abd soft, round,obese,tender. Inc of liquid brown BM; recta trumpet inserted. Pt. int nausea; R nare NGT inserted and secured @ 70cm; connected to LIS w small-mod amt of brown drainage. NGT placement confirmed
w x-ray prior to flushing. Strict NPO status initiated per orders. Blood work drawn and sent to lab; results relayed to Dr. Boyer. Micro report resulted- c diff antigen positive; toxin negative. Dr. Boyer made aware and received further order for ID
consult. Pt. instructed on use of call chew to report care concerns; placed w in reach. Bed alarm active.
[2025-07-12 17:29] LABS: Glucose - Point of Care 134 mg/dl (70-99)
[2025-07-12] MEDS: VANCOMYCIN ENEMA 500 MG RECTAL ×2 (17:47→23:06)
[2025-07-12] MEDS: FLAGYL 500 MG 100 IV (17:48)
--- NOTE | 2025-07-12 18:17 | PTCARENOTE ---
L arm midline placed by VAT. 1 set blood culture obtained from new line per orders; ID aware. IVF and IV abx infusing per orders- see flow sheet. Vanco enema admin via rectal trumpet; trumpet clamped x 1h s/p medication manager. Pt. assisted w active
repositioning on side. Bed alarm active; safe environment maintained.
--- NOTE | 2025-07-12 20:00 | PTCARENOTE ---
assumed care, drowsy and lethargic, disoriented to time and place, follows commands, DAS, PERRLA 3, Sinus tach on the monitor, +1 to LE, weak pulses, B/L scds, lungs diminished, shallow with poor effort, tachypneic RA 95%, BSx4, NGT R nare 70cm c
brown output, RT c brown liq output, pt due to void PW applied, skin per worklist, L midline, 20G LAC, 22G L wrist, LR 100ml, bed alarm applied, otherwise refer to documentation
[2025-07-12 23:19] LABS: Glucose - Point of Care 108 mg/dl (70-99)
[2025-07-13] VITALS (23 sets, daily range): BP systolic 100–150; BP diastolic 39–112; BMI 29.2
[2025-07-13] MEDS: LR 1000 IV (03:04)
[2025-07-13] MEDS: FLAGYL 500 MG 100 IV ×3 (03:04→18:11)
[2025-07-13] MEDS: VANCOMYCIN ENEMA 500 MG RECTAL ×4 (04:23→21:29)
[2025-07-13 05:28] LABS: Glucose - Point of Care 118 mg/dl (70-99)
[2025-07-13] MEDS: DILAUDID 0.25 MG IV ×2 (05:29→21:01)
[2025-07-13] MEDS: DESENEX/MITRAZOL/ZEASORB 1 APPLIC TOPICAL (05:29)
[2025-07-13] MEDS: ZOSYN 50 IV ×4 (05:30→23:16)
[2025-07-13 05:31] LABS: ALT (SGPT) 14 U/L (0-35); AST (SGOT) 27 U/L (14-36); Albumin 3.1 g/dl (3.5-5.0); Alkaline Phosphatase 73 U/L (38-126); Blood Urea Nitrogen 22 mg/dl (7-17); Calcium 8.7 mg/dl (8.4-10.2); Carbon Dioxide 13 mmol/L (22-30); Chloride 113 mmol/L (98-107); Estimated Creatinine Clearance 58 ml/min; Glucose 123 mg/dl (70-99); Potassium 4.3 mmol/L (3.5-5.1); Sodium 137 mmol/L (135-145); Total Protein 5.6 g/dl (6.3-8.2); eGFR > 60.00
[2025-07-13] MEDS: SYNTHROID PO (05:37)
[2025-07-13] MEDS: SODIUM BICARBONATE 1150 MEQ IV ×2 (06:02→16:54)
[2025-07-13 06:04] LABS: Hematocrit 25.9 % (37.0-47.0); Hemoglobin 8.7 g/dL (12.0-16.0); Mean Corp Hgb Conc. 33.6 g/dL (33.0-37.0); Mean Corpuscular Volume 94.9 fL (81.0-99.0); Platelet Count 289 10^3/uL (130-400); Red Cell Dist. Width 18.1 % (11.5-14.5)
[2025-07-13] MEDS: PLAVIX PO (07:15)
[2025-07-13] MEDS: CRESTOR PO (07:15)
[2025-07-13] MEDS: PROTONIX IV 40 MG IV ×2 (07:44→21:00)
[2025-07-13] MEDS: SOLU-CORTEF 50 MG IV ×2 (07:44→21:00)
[2025-07-13] MEDS: NSS (PRESERVATIVE FREE) 10 ML IV ×2 (07:44→21:00)
[2025-07-13 07:54] LABS: Absolute Neutrophils -Man Diff 15.2 10^3/uL (1.4-6.5)
[2025-07-13 07:56] LABS: Anisocytosis 1+; Hypochromasia 1+; Normal RBC Morphology No; Ovalocytes 1+; Platelets Checked Yes; Poikilocytosis Slight; Polychromasia Slight; Total Cells Counted 100
--- NOTE | 2025-07-13 08:02 | PTCARENOTE ---
Received pt @ change of shift. Pt. drowsy, awakens to verbal stim; ox2, required reorientation to time. ST on monitor. SpO2 99% on RA; auscultated dim breath sounds throughout posteriorly; shallow breaths; tachypnea @ x's. +BS, abd
round/obese/tender. Strict NPO status maintained. R nare NGT secured @ 70cm to LIS w small-mod amt of brown output; flushed per orders. Int nausea. Inc b/b. Rectal trumpet in place draining brown/liq stool. L midline, #20 L AC and #22 L wrist
patent, dressing c/d/i. IVF switched to bicarb gtt @ 100mL/hr overnight infusing. Pt. assisted w active repositioning in bed. Bed alarm active. Call chew in reach.
--- NOTE | 2025-07-13 09:31 | W.PN.HOSP.TC ---
Today's Communication/Plan
-
see bold
Assessment / Plan
Assessment / Plan
HPI: 69y F with PMH significant for s/p BioAVR, post-op CVA and subsequent hospitalization for CHF who presents to ED complaining of N/V/D since last PM.
Sepsis
Acute Gastroenteritis
Lactic acidosis
- Transferred to the IMU 07/12 for closer monitoring
- Appreciate GI input, NG tube inserted 07/12
- Stool studies positive for C. difficile antigen, negative for toxin
- Appreciate ID input, started on Flagyl, and vancomycin enemas, continue Zosyn
- Continue n.p.o., IV fluids, follow-up stool studies, lactic acid normalized
Acute toxic metabolic encephalopathy
- Due to sepsis, provide supportive care
Coffee-ground emesis
- Started on Protonix 40 mg IV twice daily
- Hold Eliquis, trend hemoglobin
PANTERA
- Likely due to dehydration +/- Bactrim use / med effect
- Creatinine normal today, down from 1.9 upon admission
- Trend creatinine, no nephrotoxic drugs/NSAIDs
Hypomagnesemia
Hypokalemia
- Replete as needed
Prolonged QTc
- Avoid Zofran and other QTc prolonging agents
- Continue Tigan IM as needed
Panhypopituitarism
Adrenal Insufficiency
Hypothyroidism
- Patient maintained on hydrocortisone daily.
- Given acute illness, hypotension, etc - will stress dose steroids for 1-2 days and then return to usual dose.
- Continue current T4 replacement.
Aortic Stenosis s/p BioAVR
Chronic HFpEF
- Stable. No evidence of volume overload on exam.
- Hold Farxiga / Lasix acutely.
Paroxysmal Atrial Fibrillation
- Oral metoprolol changed to IV metoprolol prn
- Holding Eliquis while patient is n.p.o.
S/p CVA
- CVA POD #1 after AVR. Transferred to [place] for TCAR.
- No new neurologic deficits.
- Holding Eliquis while patient is n.p.o.
- Continue Plavix when able
DM-II
- Hemoglobin A1c 5.7. Hold PO metformin acutely.
- Follow glucose and cover with SSI as needed - especially on higher dose steroids.
Anemia of Chronic Disease
- Trend hemoglobin
Frequent UTIs
- UA not suggestive of UTI at present.
- Just completed 3 day course of Bactrim on .
- Continue methenamine for prevention and monitor for any symptoms.
DVT Prophylaxis: SCDs while holding Eliquis
Code Status: Full
Updated at bedside 07/13
Total time spent to see the patient on the floor, examine the patient, review data and lab results, discuss treatment plan with patient, nursing staff around 50 minutes.
Physical Exam
General: Appears to not feel well, no acute distress
HEENT: Normocephalic, Atraumatic, EOMI, MMM
Respiratory: Clear to Auscultation bilaterally
Cardiac: Normal S1/S2, tachycardic rate and Rhythm
GI: Soft, distended, hypoactive Bowel Sounds, diffusely tender
Extremities: No Clubbing, Cyanosis, or Edema
Neuro: Intermittent confusion noted
Anticipated Discharge: > 48 hours
Subjective/Interval History
-
Date of Service: July 13, 2025
Patient complains of abdominal pain. She continues to have diarrhea, and has a rectal tube. Denies chest pain, denies shortness of breath. No vomiting. She had a temperature of 100.8 yesterday 4 PM.
Objective Data
-
Labs:
Laboratory Results
07/13/25
04:35
WBC 20.1 H
Hgb 8.7 L
Hct 25.9 L
Plt Count 289
Sodium 137
Potassium 4.3
Chloride 113 H
Carbon Dioxide 13 L*
BUN 22 H
Creatinine 0.9
Glucose 123 H
Calcium 8.7
Total Bilirubin 0.8
AST 27
ALT 14
Alkaline Phosphatase 73
Vital Signs:
Vital Signs
Temp Pulse Resp BP Pulse Ox
98.1 F 104 21 129/61 99
07/13/25 07:44 07/13/25 06:00 07/13/25 06:00 07/13/25 06:00 07/13/25 07:58
I&O
07/12/25 07/13/25 07/14/25
06:59 06:59 06:59
Intake Total 2140 / 2140
Output Total 1129 / 1129
Balance 1011 / 1011
--- NOTE | 2025-07-13 11:44 | PTCARENOTE ---
Rectal trumpet came out multiple times on shift thus far. GI to bedside and further orders received for FMS to collect liquid stool. FMS inserted; balloon inflated; tube flushed; pt. tolerated procedure. Pt. assisted w active repositioning and
complete hygiene provided. @ bedside. Emotional support provided. Call naina lamas in reach.
[2025-07-13 11:50] LABS: Glucose - Point of Care 121 mg/dl (70-99)
--- NOTE | 2025-07-13 13:33 | W.PN.ID1 ---
Date of Service
Date of Service: July 13, 2025 08:30
Today's Communication
Continue current antibiotics.
Assessment / Plan
Clinical sepsis
A-fib with RVR.
GI bleed
Marked leukocytosis
C. difficile antigen (+) / toxin (-)
Diarrhea
Lactic acidosis
Aortic Stenosis
Hypertension
HFpEF
Paroxysmal Atrial Fibrillation
DM-II
Panhypopituitarism (Rathke's Cleft Cyst)
Hypothyroidism
Adrenal Insufficiency
Recurrent UTIs
Diverticular Disease
Recommendations:
White count improved today.
Continue metronidazole 500 mg IV q.8 hours. Continue vancomycin enema 500 mg q.6 hours.
Continue Zosyn 3.375 gm IV q.6 hours
Follow pending cultures (blood, stool)
Monitor white count and temperature curve.
Monitor stool output.
����������������������������������������������������������
Chief Complaint
-: Clinical Sepsis
Subjective / Review of Systems
Patient seen and examined earlier this a.m. Overall appeared brighter. Admits to some mild abdominal discomfort described as diffuse. No fevers or chills.
Vital Signs / Physical Exam
Vital Signs
Vital Signs
Temp Pulse Resp BP Pulse Ox
98 F 107 18 141/62 98
07/13/25 11:52 07/13/25 12:00 07/13/25 12:00 07/13/25 12:00 07/13/25 12:00
Physical Exam
Constitutional: Comfortable, Acutely Ill, Chronically Ill and Non-toxic
Head: Other (NG tube in place.)
Cardiovascular: Regular Rate (tachy) and S1/S2; Negative S3/S4
Pulmonary: Negative Wheezes or Rales
Gastrointestinal: Soft, Non Tender, Non Distended, Decreased Bowel Sounds, No Rebound, No Guarding and Other (Rectal tube in place with liquid dark/black stool)
Extremities: Edema (Trace); Negative Erythema
Neurological: Awake
Psychological: Calm
Objective Data
Lab Data
Lab Results
07/13/25 04:35
07/13/25 04:35
Estimated Creat Clear 58 ml/min 07/13/25 04:35
Lactic Acid 1.9 mmol/L (0.7-2.0) 07/13/25 04:35
Total Bilirubin 0.8 mg/dl (0.2-1.3) 07/13/25 04:35
AST 27 U/L (14-36) 07/13/25 04:35
ALT 14 U/L (0-35) 07/13/25 04:35
Alkaline Phosphatase 73 U/L (38-126) 07/13/25 04:35
Most recent labs reviewed.
Micro Results:
07/12/25 11:37 Salmonella/Shigella Culture - Preliminary
Feces/Stool Culture in Progress
Campylobacter Culture - Preliminary
Culture in Progress
- Preliminary
Culture in Progress
Shiga Toxin Test - Pending
Stool Leukocytes - Final
07/11/25 19:37 Blood Culture - Preliminary
Blood/Venous No Growth in 24 hours- Final report to follow
07/11/25 19:37 Blood Culture - Preliminary
Blood/Venous No Growth in 24 hours- Final report to follow
07/12/25 17:06 Blood Culture - Pending
Blood/Venous
07/12/25 11:37 Cryptosporidium/Giardia - Final
Feces/Stool Negative for Cryptosporidium and/or Giardia Lamblia
antigens.
C. difficile GDH Antigen & Toxins - Final
C. difficile antigen positive, toxin negative.
Clostridium difficile present, but toxin not detected.
Patient may be a carrier, colonized with nontoxinogenic
strain or the level of toxin in sample is below detection
limits. This information should be used in conjunction with
the patient's clinical history.
- Final
Negative for Norovirus GI and GII.
Imaging:
07/11/2025 CT abdomen/pelvis without contrast: evaluation is limited without intravenous or oral contrast. No gross focal intrinsic abnormality of the unopacified liver, spleen, pancreas, kidneys or adrenal glands. No significant perinephric
stranding. Small gallstones are seen within a borderline prominent gallbladder. No biliary tract dilatation. Evaluation of the intestinal tract is markedly limited, but no intestinal obstruction or free air is noted. Please see full dictation
for additional detail.
--- NOTE | 2025-07-13 15:02 | W.PN.GI.CBS2 ---
Today's Communication / Plan
-
continue current Rx
Assessment / Plan
-
Pt is a 69yo with hx prior robotic sigmoidectomy with takedown on colovesicalar fistula , colon polyps, HTN, hyperlipidemia, NIDDM, adrenal insufficiency, afib with prior RVR on Eliquis with admission in May with with prior AVR and aortic
root enlargement with CVA and transfer to [place] for TCAR on Plavix in 05/2025, then return in June with CHF, hyponatremia and UTI. She was on recent Bactrim for possible recurrent UTI symptoms with onset of nausea, vomiting, and abdominal pain.
Asked to see for coffee ground emesis. Pt did have CT 07/11 with Cholelithiasis, borderline prominent size gallbladder. No biliary tract dilatation. Markedly limited evaluation of the organs of the abdomen including the intestinal tract without oral
or intravenous contrast, without intestinal obstruction or free air. Unremarkable appendix. Moderate size hiatal hernia. Labs notable for rise in lactate and WBC after admission. PANTERA, K 3.4, with normal LFT's and lipase. In review with family pt
began with symptoms over the weekend with inability eat with vomiting and then diarrhea and upper abdominal pain. Per family at bedside she was noted with several episodes of emesis then vomiting large volume of dark emesis this am. She also had
diarrhea. Since admission she is noted with WBC and lactate with further rise after admission, tachycardia and change in mental status. hx flex sig 2022 with diverticulosis, 05/2022 colon [place] with SSA, HP, polyps, no colitis seen.
-nausea/vomiting(dark emesis) diarrhea/abdominal pain
-tachycardia
-elevated lactate level with rise after admission
-leukocytosis
-PANTERA on admission
-moderate HH on imaging
-borderline prominent gallbladder on imaging
- with prior AVR and aortic root enlargement with CVA and transfer to [place] for TCAR on Plavix in 05/2025
-admits in June with CHF, hyponatremia and UTI with recent bactrim use
other med problems:
-hx afib on Eliquis
-robotic sigmoidectomy with takedown on colovesicular fistula
-colon polyps
-hx hyponatremia
-cholelithiasis
PLAN:
Sepsis from unclear etiology most likely GI tract/small bowel.
clinically doing better today. no fever. LA normal now. vitals stable. WBC trending down
continue empiric antibiotics started by ID
follow up blood/ stool culture
NG output is less today. If no significant output/ vomiting will remove NGT tomorrow
Total Time Spent with Patient (in minutes): 35
Subjective
Subjective
Date of Service: July 13, 2025
overall doing better as per . mild abdominal discomfort. dry heaving this am as per RN
Objective
Data Reviewed
Laboratory Data:
Laboratory Results
07/13/25 04:35
07/13/25 04:35
Laboratory Results
Phosphorus 3.9 mg/dl (2.5-4.5) 07/12/25 14:42
Magnesium 2.0 mg/dl (1.6-2.3) 07/12/25 14:42
Total Bilirubin 0.8 mg/dl (0.2-1.3) 07/13/25 04:35
AST 27 U/L (14-36) 07/13/25 04:35
ALT 14 U/L (0-35) 07/13/25 04:35
Alkaline Phosphatase 73 U/L (38-126) 07/13/25 04:35
Lipase 111 U/L (23-300) 07/11/25 19:37
Vital Signs and I&O:
Vital Signs
Temp Pulse Resp BP Pulse Ox
98 F 106 21 113/59 99
07/13/25 11:52 07/13/25 14:01 07/13/25 14:01 07/13/25 14:01 07/13/25 14:01
I&O
07/12/25 07/13/25 07/14/25
06:59 06:59 06:59
Intake Total 2139 / 2139
Output Total 1129 / 1129
Balance 1011 / 1011
Physical Exam
Physical Exam
GI: Soft, Non Distended and Tender (mild epigastric tenderness without rigidity )
--- NOTE | 2025-07-13 15:21 | CM ---
IV/Solu-Cortef/Zosyn/Flagyl. WBC trending down, possible NGT removal 07/14/25 if no vomiting and little drainage. Discharge POC: Home with resumption of JAMAAL RN.
[2025-07-13 18:24] LABS: Glucose - Point of Care 95 mg/dl (70-99)
[2025-07-13] MEDS: TIGAN 200 MG IM (21:05)
[2025-07-13 23:10] LABS: Glucose - Point of Care 84 mg/dl (70-99)
[2025-07-14] VITALS (24 sets, daily range): BP systolic 89–154; BP diastolic 47–90; BMI 29.3
[2025-07-14] MEDS: FLAGYL 500 MG 100 IV ×3 (03:25→18:26)
[2025-07-14] MEDS: VANCOMYCIN ENEMA 500 MG RECTAL (03:26)
[2025-07-14] MEDS: SODIUM BICARBONATE 1150 MEQ IV (03:26)
[2025-07-14 04:03] LABS: Hematocrit 23.4 % (37.0-47.0); Hemoglobin 7.8 g/dL (12.0-16.0); Mean Corp Hgb Conc. 33.3 g/dL (33.0-37.0); Mean Corpuscular Volume 97.5 fL (81.0-99.0); Platelet Count 288 10^3/uL (130-400); Red Cell Dist. Width 18.4 % (11.5-14.5)
[2025-07-14 04:31] LABS: Blood Urea Nitrogen 16 mg/dl (7-17); Calcium 8.0 mg/dl (8.4-10.2); Carbon Dioxide 30 mmol/L (22-30); Chloride 104 mmol/L (98-107); Estimated Creatinine Clearance 74 ml/min; Glucose 93 mg/dl (70-99); Magnesium 2.1 mg/dl (1.6-2.3); Potassium 3.1 mmol/L (3.5-5.1); Sodium 139 mmol/L (135-145); eGFR > 60.00
--- NOTE | 2025-07-14 04:55 | PTCARENOTE ---
AM labs sent. pt drowsy but remains oriented x2. SR on monitor. afebrile overnight. on RA. strict NPO, oral care and swabs given. Rnare NGT to LIS. FMS irrigated and enemas given per MAR. pt incontinent of bladder. bicarb gtt continues. call chew in
reach.
[2025-07-14] MEDS: ZOSYN 50 IV ×4 (05:16→23:50)
[2025-07-14] MEDS: KCL 270 MEQ IV (07:43)
[2025-07-14] MEDS: PLAVIX PO (08:04)
[2025-07-14] MEDS: NSS (PRESERVATIVE FREE) 10 ML IV ×2 (08:04→20:46)
[2025-07-14] MEDS: SOLU-CORTEF 50 MG IV ×2 (08:04→20:46)
[2025-07-14] MEDS: PROTONIX IV 40 MG IV ×2 (08:04→20:46)
--- NOTE | 2025-07-14 09:29 | W.PN.HOSP.TC ---
Today's Communication/Plan
-
see bold
Assessment / Plan
Assessment / Plan
HPI: 69y F with PMH significant for s/p BioAVR, post-op CVA and subsequent hospitalization for CHF who presents to ED complaining of N/V/D since last PM.
Sepsis
Acute infectious gastroenteritis, unknown organism
Lactic acidosis
- Transferred to the IMU 07/12 for closer monitoring
- Appreciate GI input, NG tube inserted 07/12
- Stool studies positive for C. difficile antigen, negative for toxin
- Appreciate ID input, improving on Flagyl, vancomycin, and Zosyn
- NG tube clamped 07/14 and starting clears
- Lactic acidosis resolved, trend fever and white count
Acute toxic metabolic encephalopathy
- Due to sepsis, provide supportive care
Coffee-ground emesis
- Started on Protonix 40 mg IV twice daily
- Cleared by GI to resume Eliquis and plavix 07/14
Paroxysmal Atrial Fibrillation with rapid ventricular response
- Due to sepsis
- Resume oral metoprolol, dose increased to 50 mg every 6 hours, continue IV metoprolol as needed
- Resume Eliquis, consult cardiology
Aortic Stenosis s/p BioAVR
Chronic HFpEF
- Stable. No evidence of volume overload on exam.
- Hold Farxiga / Lasix acutely.
S/p CVA
- CVA POD #1 after AVR. Transferred to [place] for TCAR.
- No new neurologic deficits.
- Resume Plavix 07/14
PANTERA
- Likely due to dehydration +/- Bactrim use / med effect
- Creatinine normal today, down from 1.9 upon admission
- Trend creatinine, no nephrotoxic drugs/NSAIDs
Hypomagnesemia
Hypokalemia
- Replete as needed
Prolonged QTc
- Avoid Zofran and other QTc prolonging agents
- Continue Tigan IM as needed
Panhypopituitarism
Adrenal Insufficiency
Hypothyroidism
- Patient maintained on hydrocortisone daily.
- Given acute illness, hypotension, etc - will stress dose steroids for 1-2 days and then return to usual dose.
- Continue current T4 replacement.
DM-II
- Hemoglobin A1c 5.7. Hold PO metformin acutely.
- Follow glucose and cover with SSI as needed - especially on higher dose steroids.
Anemia of Chronic Disease
- Trend hemoglobin
Frequent UTIs
- UA not suggestive of UTI at present.
- Just completed 3 day course of Bactrim on .
- Continue methenamine for prevention and monitor for any symptoms.
DVT Prophylaxis: Eliquis
Code Status: Full
Updated at bedside 07/14
Total time spent to see the patient on the floor, examine the patient, review data and lab results, discuss treatment plan with patient, nursing staff around 52 minutes.
Physical Exam
General: Appears to not feel well, no acute distress
HEENT: Normocephalic, Atraumatic, EOMI, MMM
Respiratory: Clear to Auscultation bilaterally
Cardiac: Normal S1/S2, tachycardic rate, irregular rhythm
GI: Soft, distended, hypoactive Bowel Sounds, diffusely tender
Extremities: No Clubbing, Cyanosis, or Edema
Neuro: Intermittent confusion noted
Anticipated Discharge: > 48 hours
Subjective/Interval History
-
Date of Service: July 14, 2025
Patient feels better today. Abdominal pain improved. No nausea. No fever, no chest pain, no shortness of breath.
Objective Data
-
Labs:
Laboratory Results
07/14/25
03:49
WBC 18.3 H
Hgb 7.8 L
Hct 23.4 L
Plt Count 288
Sodium 139
Potassium 3.1 L D
Chloride 104
Carbon Dioxide 30
BUN 16
Creatinine 0.7
Glucose 93
Calcium 8.0 L
Vital Signs:
Vital Signs
Temp Pulse Resp BP Pulse Ox
97.9 F 94 19 150/54 94
07/14/25 07:49 07/14/25 08:00 07/14/25 08:00 07/14/25 08:00 07/14/25 08:40
I&O
07/13/25 07/14/25 07/15/25
06:59 06:59 06:59
Intake Total 2140 / 2140 3650 / 3750 267.5 / 267.5
Output Total 1129 / 1129 1325 / 1325
Balance 1011 / 1011 2325 / 2425 267.5 / 267.5
--- NOTE | 2025-07-14 09:37 | PN.CDI ---
CDI
- -
CDI:
Physician Documentation Request
Admit Date: 07/11/25 21:49
Dear Doctor Do,
Patient admitted for sepsis.
07/13 Hospitalist PN: 'Sepsis, Acute Gastroenteritis...Appreciate ID input, started on Flagyl, and vancomycin enemas, continue Zosyn'
If possible, please provide additional specificity regarding the type of colitis:
Infectious - indicate known or suspected organism (c. difficile or other)
Non-infectious - indicate type such as toxic, allergic, dietetic, eosinophilic, etc.)
Other - please specify
Unable to determine
Use of terms such as suspected, likely, concern for, or probable (associated with a specific diagnosis that is being evaluated, monitored, or treated as if it exists) are acceptable and can be coded in the inpatient setting, when documented at the
time of discharge.
Thank you,
Karen Cunha RN, BSN
CDI Specialist
Available via [place] text
Please use your independent medical judgment in providing your response.
--- NOTE | 2025-07-14 09:54 | W.PN.ID1 ---
Date of Service
Date of Service: July 14, 2025
Today's Communication
Continue antibiotics. See below�
Assessment / Plan
Clinical sepsis
A-fib with RVR.
GI bleed
Marked leukocytosis
C. difficile antigen (+) / toxin (-)
Diarrhea
Lactic acidosis
Aortic Stenosis
Hypertension
HFpEF
Paroxysmal Atrial Fibrillation
DM-II
Panhypopituitarism (Rathke's Cleft Cyst)
Hypothyroidism
Adrenal Insufficiency
Recurrent UTIs
Diverticular Disease
Recommendations:
White count improved today.
Continue metronidazole 500 mg IV q.8 hours. Transition to enteral vancomycin.
Continue Zosyn 3.375 gm IV q.6 hours
Follow pending cultures (blood, stool); no growth to date
Monitor white count and temperature curve.
Monitor stool output.
����������������������������������������������������������
Chief Complaint
-: Leukocytosis and Clinical Sepsis
Subjective / Review of Systems
Patient seen and examined. Reports feeling somewhat improved today. NG tube remains in place, but patient for clamping to assess ongoing need. Admits to mild abdominal discomfort diffusely.
Review of Systems: No Fever and No Chills
Vital Signs / Physical Exam
Vital Signs
Vital Signs
Temp Pulse Resp BP Pulse Ox
97.9 F 94 19 150/54 94
07/14/25 07:49 07/14/25 08:00 07/14/25 08:00 07/14/25 08:00 07/14/25 08:40
Physical Exam
Constitutional: Comfortable, Acutely Ill, Chronically Ill and Non-toxic
Head: Other (NG tube in place.)
Cardiovascular: Regular Rate and S1/S2; Negative S3/S4
Pulmonary: Negative Wheezes or Rales
Gastrointestinal: Soft, Tender (Mild; diffuse), Non Distended, Normal Bowel Sounds, No Rebound, No Guarding and Other (Rectal tube in place with liquid dark/black stool)
Extremities: Edema (Trace); Negative Erythema
Neurological: Awake
Psychological: Calm
Objective Data
Lab Data
Lab Results
07/14/25 03:49
07/14/25 03:49
Estimated Creat Clear 74 ml/min 07/14/25 03:49
Lactic Acid 1.9 mmol/L (0.7-2.0) 07/13/25 04:35
Total Bilirubin 0.8 mg/dl (0.2-1.3) 07/13/25 04:35
AST 27 U/L (14-36) 07/13/25 04:35
ALT 14 U/L (0-35) 07/13/25 04:35
Alkaline Phosphatase 73 U/L (38-126) 07/13/25 04:35
Most recent labs reviewed.
Micro Results:
07/12/25 11:37 Salmonella/Shigella Culture - Preliminary
Feces/Stool Culture in Progress
Campylobacter Culture - Preliminary
Culture in Progress
- Final
NO YERSINIA SPECIES ISOLATED
Shiga Toxin Test - Pending
Stool Leukocytes - Final
07/11/25 19:37 Blood Culture - Preliminary
Blood/Venous No Growth in 48 hours- Final report to follow
07/11/25 19:37 Blood Culture - Preliminary
Blood/Venous No Growth in 48 hours- Final report to follow
07/12/25 17:06 Blood Culture - Preliminary
Blood/Venous No Growth in 24 hours- Final report to follow
07/12/25 11:37 Cryptosporidium/Giardia - Final
Feces/Stool Negative for Cryptosporidium and/or Giardia Lamblia
antigens.
C. difficile GDH Antigen & Toxins - Final
C. difficile antigen positive, toxin negative.
Clostridium difficile present, but toxin not detected.
Patient may be a carrier, colonized with nontoxinogenic
strain or the level of toxin in sample is below detection
limits. This information should be used in conjunction with
the patient's clinical history.
- Final
Negative for Norovirus GI and GII.
Imaging:
07/11/2025 CT abdomen/pelvis without contrast: evaluation is limited without intravenous or oral contrast. No gross focal intrinsic abnormality of the unopacified liver, spleen, pancreas, kidneys or adrenal glands. No significant perinephric
stranding. Small gallstones are seen within a borderline prominent gallbladder. No biliary tract dilatation. Evaluation of the intestinal tract is markedly limited, but no intestinal obstruction or free air is noted. Please see full dictation
for additional detail.
Care Review
Plan reviewed with: Nurse
--- NOTE | 2025-07-14 10:00 | PTCARENOTE ---
Clamped NGT, will trial clears if tolerates and PO meds per GI.
[2025-07-14 12:01] LABS: Glucose - Point of Care 84 mg/dl (70-99)
[2025-07-14] MEDS: FIRVANQ 125 MG PO ×3 (13:06→23:50)
--- NOTE | 2025-07-14 13:49 | PTCARENOTE ---
Patient went into afib, is symptomatic. Patient does not feel short of breath/chest pain. obtained EKG and notified Dr. Kidd
[2025-07-14] MEDS: LOPRESSOR 5 MG IV ×2 (14:02→15:18)
--- NOTE | 2025-07-14 14:15 | PTCARENOTE ---
New Afib, ok with GI to restart patient's eloquis. Cardiology consult made
[2025-07-14] MEDS: NSS 1000 IV (14:37)
[2025-07-14] MEDS: PLAVIX 75 MG PO (14:38)
--- NOTE | 2025-07-14 15:00 | W.PN.GI.CBS2 ---
Today's Communication / Plan
-
Okay to clamp NG tube with possible removal. Clear liquid diet if NG tube is removed today
Okay to restart on Eliquis/Plavix with careful monitoring of Hb/signs of bleeding
Assessment / Plan
-
Pt is a 69yo with hx prior robotic sigmoidectomy with takedown on colovesicalar fistula , colon polyps, HTN, hyperlipidemia, NIDDM, adrenal insufficiency, afib with prior RVR on Eliquis with admission in May with with prior AVR and aortic
root enlargement with CVA and transfer to [place] for TCAR on Plavix in 05/2025, then return in June with CHF, hyponatremia and UTI. She was on recent Bactrim for possible recurrent UTI symptoms with onset of nausea, vomiting, and abdominal pain.
Asked to see for coffee ground emesis. Pt did have CT 07/11 with Cholelithiasis, borderline prominent size gallbladder. No biliary tract dilatation. Markedly limited evaluation of the organs of the abdomen including the intestinal tract without oral
or intravenous contrast, without intestinal obstruction or free air. Unremarkable appendix. Moderate size hiatal hernia. Labs notable for rise in lactate and WBC after admission. PANTERA, K 3.4, with normal LFT's and lipase. In review with family pt
began with symptoms over the weekend with inability eat with vomiting and then diarrhea and upper abdominal pain. Per family at bedside she was noted with several episodes of emesis then vomiting large volume of dark emesis this am. She also had
diarrhea. Since admission she is noted with WBC and lactate with further rise after admission, tachycardia and change in mental status. hx flex sig 2022 with diverticulosis, 05/2022 colon [place] with SSA, HP, polyps, no colitis seen.
-nausea/vomiting(dark emesis) diarrhea/abdominal pain
-tachycardia
-elevated lactate level with rise after admission
-leukocytosis
-PANTERA on admission
-moderate HH on imaging
-borderline prominent gallbladder on imaging
- with prior AVR and aortic root enlargement with CVA and transfer to [place] for TCAR on Plavix in 05/2025
-admits in June with CHF, hyponatremia and UTI with recent bactrim use
other med problems:
-hx afib on Eliquis
-robotic sigmoidectomy with takedown on colovesicular fistula
-colon polyps
-hx hyponatremia
-cholelithiasis
PLAN:
Sepsis from unclear etiology most likely GI tract/small bowel.
clinically doing better today. no fever. LA normal now. vitals stable. WBC trending down
continue empiric antibiotics started by ID
blood/ stool culture -negative
Okay to clamp NG. If no residual okay to remove
Okay to restart on Eliquis/Plavix with careful monitoring of Hb/signs of bleeding
if worsening abdominal pain will repeat CT abd/ pel with contrast
Total Time Spent with Patient (in minutes): 35
Subjective
Subjective
Date of Service: July 14, 2025
Clinically doing better. Denies any nausea or vomiting. Abdominal pain still there but better
Objective
Data Reviewed
Laboratory Data:
Laboratory Results
07/14/25 03:49
07/14/25 03:49
Laboratory Results
Phosphorus 3.2 mg/dl (2.5-4.5) 07/14/25 03:49
Magnesium 2.1 mg/dl (1.6-2.3) 07/14/25 03:49
Total Bilirubin 0.8 mg/dl (0.2-1.3) 07/13/25 04:35
AST 27 U/L (14-36) 07/13/25 04:35
ALT 14 U/L (0-35) 07/13/25 04:35
Alkaline Phosphatase 73 U/L (38-126) 07/13/25 04:35
Lipase 111 U/L (23-300) 07/11/25 19:37
Vital Signs and I&O:
Vital Signs
Temp Pulse Resp BP Pulse Ox
98.7 F 130 15 134/67 96
07/14/25 11:22 07/14/25 14:02 07/14/25 13:00 07/14/25 14:02 07/14/25 13:00
I&O
07/13/25 07/14/25 07/15/25
06:59 06:59 06:59
Intake Total 2140 / 2140 3650 / 3750 1120.0 / 1120.0
Output Total 1129 / 1129 1325 / 1325
Balance 1011 / 1011 2325 / 2425 1120.0 / 1120.0
Physical Exam
Physical Exam
GI: Soft, Non Distended and Tender (Mild lower quadrant tenderness)
--- NOTE | 2025-07-14 15:53 | CM ---
Continues with IV/Solu-Medrol/Flagyl/Zosyn. NG clamped today and started on clear liquids. Discharge POC: Anticipate home with resumption of HH.
--- NOTE | 2025-07-14 15:58 | CON.CAR ---
Addendum entered and electronically signed by Justin Finch MD 07/14/25 16:45:
CCT 31 minutes
plan was communicated to [facility] ICU nursing and Dr Boyer
Addendum entered and electronically signed by Justin Finhc MD 07/14/25 16:43:
I saw and evaluated the patient with the resident. I was present for the joshua portions of the history and exam and personally performed the MDM, including reviewing labs, assessing the patient, and directing management plan. I agree with the
residents note with my comments/adjustments below:
69-year-old female with recent history of severe status post SAVR 05/27/2025 complicated by postop CVA requiring TCAR, recurrent hospitalization 06/08/2025 with new diagnosis of paroxysmal atrial fibrillation, chronic history of panhypopituitary is
him, DM 2, HFpEF who initially presented this hospitalization for nausea vomiting and diarrhea. She was noted to have coffee-ground emesis. Home medications were held as she was n.p.o. and she started on Zosyn, Flagyl and vancomycin. Additionally
PANTERA was noted on arrival this has improved. With this her Lasix, lisinopril and Farxiga have been on appropriate hold. We are called as she went into atrial fibrillation with rapid ventricular response. At times she has sense of fluttering in her
chest but other times no sense at all. No chest pain or shortness of breath. She received 5 mg IV metoprolol x 2 without great response.
On exam, she is comfortable with an NG tube in place lying on her side, irregularly irregular rapid rate and rhythm. Lungs are clear to auscultation, trace pitting edema bilaterally.
Data reviewed:
EKG tracing showsAtrial fibrillation with rapid ventricular response with right bundle branch block and QTc 564 ms.
Assessment:
A-fib with RVR: Largely asymptomatic and of no hemodynamic significance yet
Sepsis: Improved
Coffee-ground emesis: Eliquis has been held for 3 days
Status post CVA: TCAR at [place], started on DAPT at that time review of discharge summary from 06/02/2025 states patient to continue on DAPT.
PANTERA: Improved
HFpEF: Euvolemic will add back agents as able.
Plan:
Recent echo with normal EF, will start diltiazem bolus and drip as no great response with IV metoprolol thus far.
Resume Eliquis.
On Eliquis/clopidogrel: Unclear benefit of clopidogrel at this time. However, per neurology and vascular teams at [place] they wanted DAPT indefinitely. So we will cautiously continue and monitor for recurrent bleeding. Should be addressed at
follow-up with vascular whether or not ongoing need for clopidogrel especially in light of anemia and coffee-ground emesis.
Consider restarting GDMT once we know where her blood pressure will stable off with IV rate agents.
May need to consider cardioversion if no spontaneous conversion in the next 24 to 48 hours.
Original Note:
Consultation
Consultation Request
Date/Time Consultation Performed: 07/14/2025, 15:30
Requesting Provider: Dr. Garza
Performing Provider: Dr. Finch, Dr. Swanson
Reason for Consultation: Atrial fibrillation
Medical History
-
Chief Complaint: Palpitations,
History of Present Illness:
69y F with s/p BioAVR and aortic enlargement (05/27/[address] Ponce), post-op CVA , TCAR done at [facility] and subsequent hospitalization for CHF (06/08/2025) , Paroxysmal A-fib on on Eliquis, hypertension, hyperlipidemia, panhypopituitarism, diabetes
type 2, HFpEFwho presents to ED complaining of N/V/D. She was septic at presentation, infectious disease and GI on board. Currently on Zosyn, Flagyl, vancomycin. Patient is C. difficile antigen positive but toxin negative, rest of her
infectious workup still pending. Patient was also in PANTERA at admission, her Lasix, lisinopril and dapagliflozin were on hold. She was NPO since admission, all her oral medications were on hold. Patient is on clear liquids since a.m. Patient took
her last dose of Eliquis, metoprolol 3 days ago.
Patient had A-fib with RVR on engine monitor and cardiology was consulted for further management.
Past Medical History
Past Medical History: Arrhythmias, CHF, HTN, Hypercholesterolemia, NIDDM and Other (CVA s/p TCAR, aortic valve stenosis s/p AVR, aortic enlargement, panhypopituitarism)
Past Surgical History: Other (BioAVR / Aortic Root Enlargement (05/27/25) TCAR (May 2025) Sigmoid Resection (Diverticulitis) Pilonidal Cyst)
Social History
Tobacco: Former Smoker (Quit smoking this past year. > 40 pack years total use.)
Alcohol: Former (Prior daily EtOH use - none since 09/2024.)
Drug: None
Personal:
Living: With Family
Employment: Not Employed
Family History
Family History: Reviewed & Not Pertinent
Allergies / Home Medications
Allergy/AdvReac Type Severity Reaction Status Date / Time
No Known Allergies Allergy Verified 07/11/25 19:19
�Medication �Instructions �Recorded �Confirmed �Type
furosemide 20 mg tablet 20 mg PO DAILY Fluid 03/04/23 07/11/25 History
retention/Swelling
hydrocortisone 10 mg tablet 20 mg PO DAILY Anti-inflammatory 03/04/23 07/11/25 History
levothyroxine 75 mcg tablet 75 mcg PO DAILY Thyroid 09/17/24 07/11/25 History
(Synthroid)
lisinopril 5 mg tablet 10 mg PO DAILY Blood Pressure 05/04/25 07/11/25 History
pantoprazole 40 mg tablet,delayed 40 mg PO DAILY Gastrointestinal 05/04/25 07/11/25 History
release Issue
sennosides 8.6 mg tablet (senna) 8.6 mg PO BID PRN constipation 06/08/25 07/11/25 History
acetaminophen 325 mg tablet 650 mg (2 x 325 mg) PO Q4HPRN PRN 06/12/25 07/11/25 Rx
headache, pain, fever #0 tabs
apixaban 5 mg tablet 5 mg PO BID Arrhythmia #60 tabs 06/13/25 07/11/25 Rx
metoprolol succinate 25 mg 25 mg PO BID Heart 06/13/25 07/11/25 Rx
tablet,extended release 24 hr disease/condition #60 tabs
blood sugar diagnostic (Contour ##100 06/14/25 07/11/25 Rx
Next Test Strips)
clopidogrel 75 mg tablet 75 mg PO DAILY Blood clot 06/14/25 07/11/25 Rx
prevention/tx #0 tabs
dapagliflozin propanediol 10 mg 10 mg PO DAILY Diabetes #30 tabs 06/14/25 07/11/25 Rx
tablet (Farxiga)
lancets 21 gauge (Color Lancets) ##100 06/14/25 07/11/25 Rx
metformin 500 mg tablet 500 mg PO BID@0800,1700 Diabetes 06/14/25 07/11/25 Rx
#60 tabs
methenamine hippurate 1 gram tablet 1 g PO BID Urinary issue #30 tabs 06/14/25 07/11/25 Rx
multivitamin 1 tab PO DAILY Supplement #0 tabs 06/14/25 07/11/25 Rx
rosuvastatin 20 mg tablet 20 mg PO DAILY High cholesterol #0 06/14/25 07/11/25 Rx
tabs
Physical Exam
Vital Signs
Temp Pulse Resp BP Pulse Ox
98.1 F 121 20 113/83 97
07/14/25 15:08 07/14/25 15:30 07/14/25 15:30 07/14/25 15:30 07/14/25 15:30
Lab Results
07/14/25 03:49
07/14/25 03:49
Troponin I 0.014 ng/ml 07/12/25 14:42
Physical Exam
General: No Apparent Distress
HEENT: Normocephalic
Respiratory: Clear
Cardiac: S1/S2, Irregular Rhythm, Peripheral Edema (1+) and Other (Tachycardic)
GI: Soft, Non Tender, Non Distended and Normal Bowel Sounds
Skin: Warm and Dry
Neuro: Awake, Alert, Oriented and AO x 3
Impression / Plan
-
Impression
69y F with s/p BioAVR and aortic enlargement (05/27/[address] Ponce), post-op CVA , TCAR done at [facility] and subsequent hospitalization for CHF (06/08/2025) , Paroxysmal A-fib on on Eliquis, hypertension, hyperlipidemia, panhypopituitarism, diabetes
type 2, HFpEFwho presents to ED complaining of N/V/D. She was septic and in PANTERA at presentation. Cardiology was consulted for A-fib with RVR.
Plan
#Sepsis
#Lactic acidosis
Likely from GI infection
Infectious workup still pending.
Stool studies positive for C. difficile antigen but negative for toxin.
Continue antibiotics per ID�Flagyl, vancomycin and Zosyn.
Patient NPO
Monitor white count, temperature curve.
#A-fib with RVR
Patient was diagnosed in A-fib in June during her admission for acute heart failure exacerbation. Patient was briefly on amiodarone but was off of it because of her prolonged QT (she was on ciprofloxacin for her UTI). She was on home Eliquis and
metoprolol after hospital discharge since then, without missing any doses.
Telemetry reviewed
Heart rates in 140s
Patient already received 2 doses of 2.5 mg metoprolol IV.
Patient is n.p.o. since admission, her Eliquis and metoprolol were on hold.
Last Eliquis dose�3 days ago
Will start her on diltiazem drip.
Her Sheldon Vasc score�8
Needs to be anticoagulated, resume Eliquis.
Continue telemetry monitoring.
#CVA s/p TCAR
Patient still on Eliquis, clopidogrel?? It has been more than 3 weeks since CVA
Request for medical records from [facility]
#AV stenosis s/p AVR, aortic enlargement
#HFpEF
Stable. No evidence of volume overload on exam.
Hold Farxiga / Lasix
#PANTERA
Resolved
Monitor lytes, renal function
Replenish potassium
Continue management of the rest of her chronic medical conditions as per the primary team.
--- NOTE | 2025-07-14 16:00 | PTCARENOTE ---
Started patient on cardizem gtt after cardizem bolus.
[2025-07-14] MEDS: KCL ELIXIR 40 MEQ PO (16:27)
[2025-07-14] MEDS: CARDIZEM 125 IV (16:27)
[2025-07-14] MEDS: CARDIZEM 20 MG IV (16:27)
[2025-07-14] MEDS: LOPRESSOR 50 MG PO ×2 (17:28→23:50)
[2025-07-14 17:41] LABS: Glucose - Point of Care 146 mg/dl (70-99)
[2025-07-14] MEDS: ELIQUIS 5 MG PO (20:46)
[2025-07-14] MEDS: TYLENOL 650 MG PO (22:37)
[2025-07-15] VITALS (13 sets, daily range): BP systolic 94–173; BP diastolic 37–74; BMI 29.2
[2025-07-15 00:06] LABS: Glucose - Point of Care 98 mg/dl (70-99)
--- NOTE | 2025-07-15 00:10 | PTCARENOTE ---
cardizem gtt titrated off, HR 60/70s, NSR on monitor. call chew in reach.
[2025-07-15 04:37] LABS: Hematocrit 21.6 % (37.0-47.0); Hemoglobin 7.1 g/dL (12.0-16.0); Mean Corp Hgb Conc. 32.9 g/dL (33.0-37.0); Mean Corpuscular Volume 96.9 fL (81.0-99.0); Platelet Count 281 10^3/uL (130-400); Red Cell Dist. Width 18.3 % (11.5-14.5)
[2025-07-15] MEDS: ZOSYN 50 IV ×2 (04:39→11:47)
[2025-07-15] MEDS: FIRVANQ 125 MG PO ×4 (04:39→23:04)
[2025-07-15] MEDS: FLAGYL 500 MG 100 IV ×2 (04:39→09:44)
[2025-07-15] MEDS: LOPRESSOR 50 MG PO ×4 (04:40→23:04)
[2025-07-15] MEDS: SYNTHROID 75 MCG PO (04:40)
[2025-07-15] MEDS: NSS 1000 IV ×2 (04:40→16:59)
[2025-07-15 05:14] LABS: Blood Urea Nitrogen 14 mg/dl (7-17); Calcium 7.9 mg/dl (8.4-10.2); Carbon Dioxide 28 mmol/L (22-30); Chloride 104 mmol/L (98-107); Estimated Creatinine Clearance 74 ml/min; Glucose 103 mg/dl (70-99); Potassium 3.3 mmol/L (3.5-5.1); Sodium 138 mmol/L (135-145); eGFR > 60.00
[2025-07-15] MEDS: KCL 270 MEQ IV (05:51)
--- NOTE | 2025-07-15 07:25 | W.PN.UPDATE ---
Update Note
Progress Note Update
AM labs: K+ 3.3, ordered K+ rider 40 meq IV x 1.
[2025-07-15] MEDS: NSS (PRESERVATIVE FREE) 10 ML IV ×2 (07:50→19:56)
[2025-07-15] MEDS: PROTONIX IV 40 MG IV ×2 (07:50→19:56)
[2025-07-15] MEDS: SOLU-CORTEF 50 MG IV (07:50)
[2025-07-15] MEDS: ELIQUIS PO (07:56)
[2025-07-15] MEDS: CRESTOR 20 MG PO (07:56)
[2025-07-15] MEDS: PLAVIX PO (07:56)
--- NOTE | 2025-07-15 07:59 | W.PN.CD ---
Today's Communication / Plan
-
-Patient converted back to sinus rhythm on Cardizem drip overnight; currently stable.
-Hemoglobin 7.1 today (7.8 yesterday); continues to trend down.
-Will need to hold Eliquis and clopidogrel for now; GI following.
-Continue Cardizem drip.
-Recommend Vascular Surgery consultation to assist with guidance regarding use of clopidogrel; with A-fib, the patient may ultimately be able to be placed on Eliquis and aspirin.
Impression / Plan
-
Impression
69 yo F (known to Dr. 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 Ponce), post-op CVA , TCAR done at [facility] and subsequent hospitalization for CHF (06/08/2025), paroxysmal A-fib (on Eliquis),
hypertension, hyperlipidemia, panhypopituitarism, diabetes type 2, and HFpEF who presents to ED complaining of N/V/D. She was septic and in PANTERA at presentation. Cardiology was consulted for A-fib with RVR.
Plan
#Sepsis
#Lactic acidosis
Likely from GI infection
Infectious workup still pending.
Stool studies positive for C. difficile antigen but negative for toxin.
Continue antibiotics per ID�Flagyl, vancomycin and Zosyn.
-Patient NPO; NGT to suction.
#A-fib with RVR
Patient was diagnosed in A-fib in June during her admission for acute heart failure exacerbation. Patient was briefly on amiodarone but was off of it because of her prolonged QT (she was on ciprofloxacin for her UTI). She was on home Eliquis and
metoprolol after hospital discharge since then, without missing any doses.
-Patient converted back to sinus rhythm on Cardizem drip overnight; currently stable.
-Hemoglobin 7.1 today (7.8 yesterday); continues to trend down.
-Will need to hold Eliquis and clopidogrel for now; GI following.
-Continue Cardizem drip.
Her Sheldon Vasc score�8
Continue telemetry monitoring.
#CVA s/p TCAR
Patient still on clopidogrel; it has been more than 3 weeks since CVA.
Request for medical records from [facility]
-Recommend Vascular Surgery consultation to assist with guidance regarding use of clopidogrel; with A-fib, the patient may ultimately be able to be placed on Eliquis and aspirin.
#AV stenosis s/p AVR, aortic enlargement
Stable
#HFpEF
Stable. No evidence of volume overload on exam.
Continue to hold Farxiga / Lasix
#PANTERA
Resolved
Monitor lytes, renal function
Replete potassium
Physical Exam
Vital Signs/Labs
Vital Signs
Temp Pulse Resp BP Pulse Ox
98 F 64 14 125/59 95
07/15/25 04:18 07/15/25 06:00 07/15/25 06:00 07/15/25 06:00 07/15/25 06:00
07/14/25 07/15/25 07/16/25
06:59 06:59 06:59
Actual Weight 77.5 kg 77.2 kg
07/15/25 04:30
07/15/25 04:30
Magnesium 2.1 mg/dl (1.6-2.3) 07/14/25 03:49
LAB Results
07/12/25
14:42
Troponin I 0.014
Physical Exam
Constitutional: No acute distress and Comfortable
EENT: Anicteric
Cardiovascular: Rhythm & rate is regular, Pedal edema is absent, Systolic murmur absent and S1S2 is normal
Respiratory: Respiratory effort normal and Lungs clear to auscul.
GI: Soft
Neuro/Psych: AO x 3
Other: Skin (Warm, dry, intact)
Data Reviewed
-
Date of Service: July 15, 2025
EKG: Tracing Personally Visualized and interpreted (Telemetry: Atrial fibrillation --> sinus rhythm.)
Labs: Labs Reviewed by me
Critical Care Time (in minutes): 35
--- NOTE | 2025-07-15 08:13 | PTCARENOTE ---
Received pt. @ change of shift. Pt. drowsy, awakens to verbal stim; ox3; forgetful @ x's but easily redirected. Denies pain. SR w BBB on monitor. SpO2 100% on RA. +BS, abd soft/round/obese. R nare NGT secured @ 70cm clamped; flushed per orders;
pt. denies nausea. FMS in place draining liq/brown stool. L midline w NSS @ 75mL/hr infusing w K+ rider. #22 R wrist patent, dressing c/d/i. hgb 7.1 this AM; GI team made aware ->plan to hold eliquis/plavix and check cbc later today. Pt. informed
on plan of care. Instructed on how to report care concerns and call chew placed w in reach.
--- NOTE | 2025-07-15 08:51 | W.PN.HOSP.TC ---
Today's Communication/Plan
-
see bold
Assessment / Plan
Assessment / Plan
HPI: 69y F with PMH significant for s/p BioAVR, post-op CVA and subsequent hospitalization for CHF who presents to ED complaining of N/V/D since last PM.
Sepsis
Acute infectious gastroenteritis, unknown organism
Lactic acidosis
- Transferred to the IMU 07/12 for closer monitoring
- Appreciate GI input, NG tube inserted 07/12, removed 07/15
- Stool studies positive for C. difficile antigen, negative for toxin
- Appreciate ID input, improving on Flagyl, vancomycin, and Zosyn
- Lactic acidosis resolved, trend fever and white count
Worsening anemia, due to sepsis, acute blood loss, and anemia of chronic disease
- There is no overt active bleeding
- Appreciate hematology input, due to sepsis, acute blood loss, and anemia of chronic disease
- Monitor hemoglobin, transfuse for hemoglobin less than 7.0
Acute toxic metabolic encephalopathy
- Due to sepsis, resolved, provide supportive care
Coffee-ground emesis
- Started on Protonix 40 mg IV twice daily
- Cleared by GI to resume Eliquis and plavix 07/14
Paroxysmal Atrial Fibrillation with rapid ventricular response
- Due to sepsis
- Resume oral metoprolol, dose increased to 50 mg every 6 hours, continue IV metoprolol as needed
- Resumed Eliquis
- Appreciate cardiology input, converted to normal sinus rhythm overnight on diltiazem drip
Aortic Stenosis s/p BioAVR
Chronic HFpEF
- Stable. No evidence of volume overload on exam.
- Hold Farxiga / Lasix acutely.
S/p CVA
- CVA POD #1 after AVR. Transferred to [place] for TCAR.
- No new neurologic deficits.
- Resumed Plavix 07/14
PANTERA
- Likely due to dehydration +/- Bactrim use / med effect
- Creatinine normal today, down from 1.9 upon admission
- Trend creatinine, no nephrotoxic drugs/NSAIDs
Hypomagnesemia
Hypokalemia
- Replete as needed
Prolonged QTc
- Avoid Zofran and other QTc prolonging agents
- Continue Tigan IM as needed
Panhypopituitarism
Adrenal Insufficiency
Hypothyroidism
- Patient maintained on hydrocortisone daily.
- Given acute illness, hypotension, etc - will stress dose steroids for 1-2 days and then return to usual dose.
- Continue current T4 replacement.
DM-II
- Hemoglobin A1c 5.7. Hold PO metformin acutely.
- Follow glucose and cover with SSI as needed - especially on higher dose steroids.
Anemia of Chronic Disease
- Trend hemoglobin
Frequent UTIs
- UA not suggestive of UTI at present.
- Just completed 3 day course of Bactrim on .
- Continue methenamine for prevention and monitor for any symptoms.
DVT Prophylaxis: Eliquis
Code Status: Full
Updated at bedside 07/15
Total time spent to see the patient on the floor, examine the patient, review data and lab results, discuss treatment plan with patient, nursing staff around 51 minutes.
Physical Exam
General: Appears to not feel well, no acute distress
HEENT: Normocephalic, Atraumatic, EOMI, MMM
Respiratory: Clear to Auscultation bilaterally
Cardiac: Normal S1/S2, RRR
GI: Soft, nontender, nondistended, normal active bowel sounds
Extremities: No Clubbing, Cyanosis, or Edema
Neuro: Confusion resolved
Anticipated Discharge: > 48 hours
Subjective/Interval History
-
Date of Service: July 15, 2025
Patient went into rapid atrial fibrillation yesterday afternoon, she did have palpitations. Her palpitations have resolved. She denies abdominal pain. She tolerated her full liquids. She continues to have diarrhea. No fever, no vomiting.
Objective Data
-
Labs:
Laboratory Results
07/15/25
04:30
WBC 13.9 H
Hgb 7.1 L
Hct 21.6 L
Plt Count 281
Sodium 138
Potassium 3.3 L
Chloride 104
Carbon Dioxide 28
BUN 14
Creatinine 0.7
Glucose 103 H
Calcium 7.9 L
Vital Signs:
Vital Signs
Temp Pulse Resp BP Pulse Ox
97.9 F 64 14 125/59 100
07/15/25 08:00 07/15/25 06:00 07/15/25 06:00 07/15/25 06:00 07/15/25 08:08
I&O
07/14/25 07/15/25 07/16/25
06:59 06:59 06:59
Intake Total 3650 / 3750 3100.0 / 3205.0 180 / 180
Output Total 1325 / 1325 1500 / 1750 250 / 250
Balance 2325 / 2425 1600.0 / 1455.0 -70 / -70
[2025-07-15 10:15] LABS: Hematocrit 21.7 % (37.0-47.0); Hemoglobin 7.2 g/dL (12.0-16.0); Mean Corp Hgb Conc. 33.2 g/dL (33.0-37.0); Mean Corpuscular Volume 96.9 fL (81.0-99.0); Platelet Count 278 10^3/uL (130-400); Red Cell Dist. Width 18.0 % (11.5-14.5)
[2025-07-15 10:23] LABS: Fibrinogen 600 MG/DL (199-459)
[2025-07-15 10:26] LABS: ALT (SGPT) < 10 U/L (0-35); AST (SGOT) 15 U/L (14-36); Albumin 2.5 g/dl (3.5-5.0); Alkaline Phosphatase 59 U/L (38-126); Iron 79 ug/dl (37-170); LDH 235 U/L (120-246); Total Protein 4.9 g/dl (6.3-8.2)
[2025-07-15 10:36] LABS: Total Iron Binding Capacity 148 ug/dl (265-497)
--- NOTE | 2025-07-15 10:51 | W.PN.GI.CBS2 ---
Addendum entered and electronically signed by Rob Marmolejo MD 07/15/25 10:57:
c.diff ag +/ toxin negative - on vanco
Original Note:
Today's Communication / Plan
-
full liquid diet
remove NGT
Assessment / Plan
-
Pt is a 69yo with hx prior robotic sigmoidectomy with takedown on colovesicalar fistula , colon polyps, HTN, hyperlipidemia, NIDDM, adrenal insufficiency, afib with prior RVR on Eliquis with admission in May with with prior AVR and aortic
root enlargement with CVA and transfer to [facility] for TCAR on Plavix in 05/2025, then return in June with CHF, hyponatremia and UTI. She was on recent Bactrim for possible recurrent UTI symptoms with onset of nausea, vomiting, and abdominal pain.
Asked to see for coffee ground emesis. Pt did have CT 07/11 with Cholelithiasis, borderline prominent size gallbladder. No biliary tract dilatation. Markedly limited evaluation of the organs of the abdomen including the intestinal tract without oral
or intravenous contrast, without intestinal obstruction or free air. Unremarkable appendix. Moderate size hiatal hernia. Labs notable for rise in lactate and WBC after admission. PANTERA, K 3.4, with normal LFT's and lipase. In review with family pt
began with symptoms over the weekend with inability eat with vomiting and then diarrhea and upper abdominal pain. Per family at bedside she was noted with several episodes of emesis then vomiting large volume of dark emesis this am. She also had
diarrhea. Since admission she is noted with WBC and lactate with further rise after admission, tachycardia and change in mental status. hx flex sig 2022 with diverticulosis, 05/2022 colon [place] with SSA, HP, polyps, no colitis seen.
-nausea/vomiting(dark emesis) diarrhea/abdominal pain
-tachycardia
-elevated lactate level with rise after admission
-leukocytosis
-PANTERA on admission
-moderate HH on imaging
-borderline prominent gallbladder on imaging
- with prior AVR and aortic root enlargement with CVA and transfer to [facility] for TCAR on Plavix in 05/2025
-admits in June with CHF, hyponatremia and UTI with recent bactrim use
other med problems:
-hx afib on Eliquis
-robotic sigmoidectomy with takedown on colovesicular fistula
-colon polyps
-hx hyponatremia
-cholelithiasis
PLAN:
Sepsis from unclear etiology most likely GI tract/small bowel.
clinically doing better today. no fever. LA normal now. vitals stable. WBC trending down
continue empiric antibiotics started by ID
blood/ stool culture -negative
ok to remove NGT
full liquid diet today
Hb this am 7.1 , repeat stable . brown stool . considering her past hx benefit of AC/plavix outweighs risks at this point. discussed with patient / family. Okay to restart on Eliquis/Plavix with careful monitoring of Hb/signs of bleeding . follow
up cardio/ vascular recommendation
if worsening abdominal pain will repeat CT abd/ pel with contrast
Total Time Spent with Patient (in minutes): 35
Subjective
Subjective
Date of Service: July 15, 2025
feeling better. tolerating CLD
Objective
Data Reviewed
Laboratory Data:
Laboratory Results
07/15/25 10:01
07/15/25 04:30
Laboratory Results
Phosphorus 3.2 mg/dl (2.5-4.5) 07/14/25 03:49
Magnesium 2.1 mg/dl (1.6-2.3) 07/14/25 03:49
Total Bilirubin 0.5 mg/dl (0.2-1.3) 07/15/25 10:01
AST 15 U/L (14-36) 07/15/25 10:01
ALT < 10 U/L (0-35) 07/15/25 10:01
Alkaline Phosphatase 59 U/L (38-126) 07/15/25 10:01
Lipase 111 U/L (23-300) 07/11/25 19:37
Vital Signs and I&O:
Vital Signs
Temp Pulse Resp BP Pulse Ox
97.9 F 65 21 145/51 98
07/15/25 08:00 07/15/25 10:00 07/15/25 10:00 07/15/25 10:00 07/15/25 10:00
I&O
07/14/25 07/15/25 07/16/25
06:59 06:59 06:59
Intake Total 3650 / 3750 3100.0 / 3205.0 805 / 805
Output Total 1325 / 1325 1500 / 1750 1250 / 1250
Balance 2325 / 2425 1600.0 / 1455.0 -445 / -445
Physical Exam
Physical Exam
GI: Soft, Non Distended and Non Tender
[2025-07-15 11:21] LABS: Ferritin 448.0 ng/ml (11.1-264.0)
[2025-07-15 11:52] LABS: Folate 13.4 ng/ml (2.76-20); Vitamin B12 > 1000 pg/ml (239-931)
--- NOTE | 2025-07-15 12:13 | W.PN.ID1 ---
Date of Service
Date of Service: July 15, 2025
Today's Communication
Continue enteral vancomycin. Discontinue further Zosyn and metronidazole.
Assessment / Plan
Clinical sepsis
A-fib with RVR.
GI bleed
Marked leukocytosis
C. difficile antigen (+) / toxin (-)
Diarrhea
Lactic acidosis
Aortic Stenosis
Hypertension
HFpEF
Paroxysmal Atrial Fibrillation
DM-II
Panhypopituitarism (Rathke's Cleft Cyst)
Hypothyroidism
Adrenal Insufficiency
Recurrent UTIs
Diverticular Disease
Recommendations:
White count improved today.
Continue enteral vancomycin.
Discontinue further Zosyn and metronidazole.
Cultures without growth to date.
Monitor white count and temperature curve.
Monitor stool output.
����������������������������������������������������������
Chief Complaint
-: Leukocytosis and Clinical Sepsis
Subjective / Review of Systems
Patient seen and examined. Reports feeling well. NG tube has been removed. Still with FMS in place. Diarrhea persist. Patient denies any abdominal pain. No fevers or chills.
Vital Signs / Physical Exam
Vital Signs
Vital Signs
Temp Pulse Resp BP Pulse Ox
99.2 F 68 21 145/51 98
07/15/25 11:47 07/15/25 11:47 07/15/25 10:00 07/15/25 11:47 07/15/25 10:00
Physical Exam
Constitutional: No Acute Distress, Comfortable and Non-toxic
Cardiovascular: Regular Rate and S1/S2; Negative S3/S4
Pulmonary: Negative Wheezes or Rales
Gastrointestinal: Soft, Non Tender, Non Distended, Normal Bowel Sounds, No Rebound, No Guarding and Other (Rectal tube in place with liquid stool)
Extremities: Edema (Trace); Negative Erythema
Neurological: Awake
Psychological: Calm
Objective Data
Lab Data
Lab Results
07/15/25 10:01
07/15/25 04:30
Estimated Creat Clear 74 ml/min 07/15/25 04:30
Lactic Acid 1.9 mmol/L (0.7-2.0) 07/13/25 04:35
Total Bilirubin 0.5 mg/dl (0.2-1.3) 07/15/25 10:01
AST 15 U/L (14-36) 07/15/25 10:01
ALT < 10 U/L (0-35) 07/15/25 10:01
Alkaline Phosphatase 59 U/L (38-126) 07/15/25 10:01
Most recent labs reviewed.
Micro Results:
07/12/25 11:37 Salmonella/Shigella Culture - Final
Feces/Stool No Salmonella, Shigella, Aeromonas or Plesiomonas species
isolated.
Campylobacter Culture - Final
No Campylobacter species isolated.
- Final
NO YERSINIA SPECIES ISOLATED
Shiga Toxin Test - Final
No E. coli Shiga Toxin 1 or 2 detected.
Stool Leukocytes - Final
07/11/25 19:37 Blood Culture - Preliminary
Blood/Venous No Growth in 72 hours- Final report to follow
07/11/25 19:37 Blood Culture - Preliminary
Blood/Venous No Growth in 72 hours- Final report to follow
07/12/25 17:06 Blood Culture - Preliminary
Blood/Venous No Growth in 48 hours- Final report to follow
07/12/25 11:37 Cryptosporidium/Giardia - Final
Feces/Stool Negative for Cryptosporidium and/or Giardia Lamblia
antigens.
C. difficile GDH Antigen & Toxins - Final
C. difficile antigen positive, toxin negative.
Clostridium difficile present, but toxin not detected.
Patient may be a carrier, colonized with nontoxinogenic
strain or the level of toxin in sample is below detection
limits. This information should be used in conjunction with
the patient's clinical history.
- Final
Negative for Norovirus GI and GII.
Imaging:
07/11/2025 CT abdomen/pelvis without contrast: evaluation is limited without intravenous or oral contrast. No gross focal intrinsic abnormality of the unopacified liver, spleen, pancreas, kidneys or adrenal glands. No significant perinephric
stranding. Small gallstones are seen within a borderline prominent gallbladder. No biliary tract dilatation. Evaluation of the intestinal tract is markedly limited, but no intestinal obstruction or free air is noted. Please see full dictation
for additional detail.
Care Review
Plan reviewed with: Nurse
--- NOTE | 2025-07-15 12:37 | PTCARENOTE ---
Pt. tolerated PO intake w/out n/v. GI to bedside and further orders received. NGT d/c'd and diet advanced to full liq per orders, tolerating. Stand by assisted x2 OOB to chair; tolerated activity and remains in chair @ this time. Call chew
placed w in reach.
[2025-07-15 12:38] LABS: Glucose - Point of Care 98 mg/dl (70-99)
--- NOTE | 2025-07-15 13:00 | CON.ONC ---
Consultation
-
Date Consultation Requested: 07/15/25
Date Consultation Performed: 07/15/25
Impression
Impression
Anemia
GI blood loss
Sepsis
Atrial fibrillation
Reactive leukocytosis
Positive C. difficile antigen
Aortic stenosis
Hypertension
Adrenal insufficiency
Plan
Plan
Suspect continued anemia is equilibration post bleeding
leukocytosis reactive
Evaluate for hemolysis with continued widened RDW and positive JUSTIN hemolysis panel ordered
Normal bilirubin with trivial indirect component and normal LDH suggest no rapid hemolysis occurring
Low TIBC and elevated ferritin suggest anemia of chronic inflammation as contributing component
B12 folic acid in the normal range
Hemoglobin stable today at 7.2 g/dL
Monitor CBC
Follow-up labs
No active bleeding noted
Patient History
History of Present Illness
69y F with s/p BioAVR and aortic enlargement (05/27/[address] Ponce), post-op CVA , TCAR done at [facility] and subsequent hospitalization for CHF (06/08/2025) , Paroxysmal A-fib on on Eliquis, hypertension, hyperlipidemia, panhypopituitarism, diabetes
type 2, HFpEFwho presents to ED complaining of N/V/D. She was septic at presentation, infectious disease and GI on board. Currently on Zosyn, Flagyl, vancomycin. Patient is C. difficile antigen positive but toxin negative, rest of her
infectious workup still pending. Patient was also in PANTERA at admission, her Lasix, lisinopril and dapagliflozin were on hold. She was NPO since admission, all her oral medications were on hold. Patient is on clear liquids since a.m. Patient took
her last dose of Eliquis, metoprolol 3 days ago.
Past-Medical/Surgical History
Past Medical History
Past Medical History: Arrhythmias, CHF, HTN, Hypercholesterolemia, NIDDM and Other (CVA s/p TCAR, aortic valve stenosis s/p AVR, aortic enlargement, panhypopituitarism)
Past Surgical History: Other (BioAVR / Aortic Root Enlargement (05/27/25) TCAR (May 2025) Sigmoid Resection (Diverticulitis) Pilonidal Cyst)
Social History
Tobacco: Former Smoker (Quit smoking this past year. > 40 pack years total use.)
Alcohol: Former (Prior daily EtOH use - none since 09/2024.)
Drug: None
Personal:
Living: With Family
Employment: Not Employed
Family History
Family History: Reviewed & Not Pertinent
Patient Medication
�Medication �Instructions �Recorded �Confirmed �Last Taken �Type
furosemide 20 mg tablet 20 mg PO DAILY Fluid 03/04/23 07/11/25 06/08/25 08:00 History
retention/Swelling
hydrocortisone 10 mg tablet 20 mg PO DAILY Anti-inflammatory 03/04/23 07/11/25 06/08/25 08:00 History
levothyroxine 75 mcg tablet 75 mcg PO DAILY Thyroid 09/17/24 07/11/25 06/08/25 08:00 History
(Synthroid)
lisinopril 5 mg tablet 10 mg PO DAILY Blood Pressure 05/04/25 07/11/25 06/08/25 08:00 History
pantoprazole 40 mg tablet,delayed 40 mg PO DAILY Gastrointestinal 05/04/25 07/11/25 05/26/25 08:00 History
release Issue
sennosides 8.6 mg tablet (senna) 8.6 mg PO BID PRN constipation 06/08/25 07/11/25 Unknown History
acetaminophen 325 mg tablet 650 mg (2 x 325 mg) PO Q4HPRN PRN 06/12/25 07/11/25 Unknown Rx
headache, pain, fever #0 tabs
apixaban 5 mg tablet 5 mg PO BID Arrhythmia #60 tabs 06/13/25 07/11/25 Unknown Rx
metoprolol succinate 25 mg 25 mg PO BID Heart 06/13/25 07/11/25 Unknown Rx
tablet,extended release 24 hr disease/condition #60 tabs
blood sugar diagnostic (Contour ##100 06/14/25 07/11/25 Unknown Rx
Next Test Strips)
clopidogrel 75 mg tablet 75 mg PO DAILY Blood clot 06/14/25 07/11/25 06/08/25 08:00 Rx
prevention/tx #0 tabs
dapagliflozin propanediol 10 mg 10 mg PO DAILY Diabetes #30 tabs 06/14/25 07/11/25 06/08/25 08:00 Rx
tablet (Farxiga)
lancets 21 gauge (Color Lancets) ##100 06/14/25 07/11/25 Unknown Rx
metformin 500 mg tablet 500 mg PO BID@0800,1700 Diabetes 06/14/25 07/11/25 06/08/25 08:00 Rx
#60 tabs
methenamine hippurate 1 gram tablet 1 g PO BID Urinary issue #30 tabs 06/14/25 07/11/25 06/08/25 08:00 Rx
multivitamin 1 tab PO DAILY Supplement #0 tabs 06/14/25 07/11/25 Unknown Rx
rosuvastatin 20 mg tablet 20 mg PO DAILY High cholesterol #0 06/14/25 07/11/25 06/07/25 18:00 Rx
tabs
Active Medications
Generic Name Dose Route Start Last Admin
Trade Name Freq PRN Reason Stop Dose Admin
Acetaminophen 650 mg 07/11/25 22:27 07/14/25 22:37
Acetaminophen 325 Mg Tablet PO 08/08/25 22:26 650 mg
Q4HPRN PRN Administration
Mild Pain / Temp > 101
Apixaban 5 mg 07/12/25 08:00 07/15/25 07:56
Apixaban (Eliquis) 5 Mg Tablet PO 08/09/25 07:59 Not Given
On Hold: 07/15/25 08:58 BID TAMMIE
Clopidogrel Bisulfate 75 mg 07/12/25 08:00 07/15/25 07:56
Clopidogrel 75 Mg Tablet PO 08/09/25 07:59 Not Given
On Hold: 07/15/25 08:58 DAILY TAMMIE
Dextrose 12.5 grams 07/11/25 22:27
Dextrose 50% (0.5 Grams/Ml) 50 Ml Syringe IV 08/08/25 22:26
[id number] PRN
hypoglycemia
Protocol
Glucagon 1 mg 07/11/25 22:27
Glucagon 1 Mg Vial IM 08/08/25 22:26
PRN PRN
hypoglycemia
Protocol
Hydrocortisone 20 mg 07/16/25 08:00
Hydrocortisone 10 Mg Tablet PO 08/13/25 07:59
DAILY TAMMIE
Hydromorphone HCl 0.25 mg 07/13/25 05:11 07/13/25 21:01
Hydromorphone 0.25 Mg/0.5 Ml Syringe IV 07/27/25 05:10 0.25 mg
Q3HPRN PRN Administration
moderate pain-severe pain
Sodium Chloride 1,000 mls @ 75 mls/hr 07/14/25 14:30 07/15/25 04:40
Nss IV 1,000 mls
.[id number] TAMMIE Administration
Diltiazem HCl 125 mg in 125 mls @ 0 mls/hr 07/14/25 16:15 07/14/25 16:27
Cardizem IV 125 mls
PER PROTOCOL TAMMIE Administration
Protocol
Per Protocol
Insulin Aspart 0 units 07/12/25 18:00 07/15/25 12:34
Insulin Aspart Low Resistance 300 Units/3 Ml Pen.Injctr SC 08/09/25 17:59 Not Given
Q6 TAMMIE
Protocol
Levothyroxine Sodium 75 mcg 07/12/25 06:00 07/15/25 04:40
Levothyroxine 75 Mcg Tablet PO 08/09/25 05:59 75 mcg
DAILY @ 0600 TAMMIE Administration
Metoprolol Tartrate 50 mg 07/14/25 18:00 07/15/25 11:47
Metoprolol 50 Mg Regular Release Tablet PO 08/11/25 17:59 50 mg
Q6 TAMMIE Administration
Metoprolol Tartrate 5 mg 07/14/25 14:26 07/14/25 15:18
Metoprolol 5 Mg/5 Ml Vial IV 08/11/25 14:25 5 mg
Q4HPRN PRN Administration
isabelle HR > 120
Miconazole Nitrate 1 applic 07/13/25 05:11 07/13/25 05:29
Miconazole Powder Bottle TOPICAL 08/10/25 05:10 1 applic
BIDPRN PRN Administration
bilat groin
Pantoprazole Sodium 40 mg 07/12/25 08:20 07/15/25 07:50
Pantoprazole Sodium 40 Mg/10 Ml Vial IV 08/09/25 08:19 40 mg
BID TAMMIE Administration
Rosuvastatin Calcium 20 mg 07/12/25 08:00 07/15/25 07:56
Rosuvastatin (Crestor) 20 Mg Tablet PO 08/09/25 07:59 20 mg
DAILY TAMMIE Administration
Sodium Chloride 10 ml 07/12/25 08:20 07/15/25 07:50
Sodium Chloride 0.9% (Preservative Free) 10 Ml Vial IV 08/09/25 08:19 10 ml
BID TAMMIE Administration
Sodium Chloride 0 flush 07/14/25 07:00
Sodium Chloride 0.9% (Flush) Syringe IV 08/11/25 06:59
PER PROTOCOL TAMMIE
Trimethobenzamide HCl 200 mg 07/11/25 22:27 07/13/25 21:05
Trimethobenzamide 200 Mg/2 Ml Vial IM 08/08/25 22:26 200 mg
Q6HPRN PRN Administration
N/V, use first
Vancomycin HCl 125 mg 07/14/25 12:00 07/15/25 11:47
Vancomycin Oral Solution 50 Mg/Ml In Oral Syringe PO 125 mg
Q6 TAMMIE Administration
Review of Systems
-
10 point review of systems fails to elicit additional complaints other than those reviewed in the HPI. Patient eating for the first time in many days starting with Jell-O tolerating well.
Physical Exam
-
Physical Exam
General: No Apparent Distress
HEENT: Normocephalic
Respiratory: Clear
Cardiac: S1/S2, Irregular Rhythm, Peripheral Edema (1+) and Other (Tachycardic)
GI: Soft, Non Tender, Non Distended and Normal Bowel Sounds
Skin: Warm and Dry
Neuro: Awake, Alert, Oriented and AO x 3
Labs
Lab Results
WBC 13.2 10^3/uL (4.8-10.8) H 07/15/25 10:01
RBC 2.24 10^6/uL (4.20-5.40) L 07/15/25 10:01
Hgb 7.2 g/dL (12.0-16.0) L 07/15/25 10:01
Hct 21.7 % (37.0-47.0) L 07/15/25 10:01
MCV 96.9 fL (81.0-99.0) 07/15/25 10:01
MCH 32.1 pg (27.0-31.0) H 07/15/25 10:01
MCHC 33.2 g/dL (33.0-37.0) 07/15/25 10:01
RDW 18.0 % (11.5-14.5) H 07/15/25 10:01
Plt Count 278 10^3/uL (130-400) 07/15/25 10:01
MPV 11.5 fL (7.4-10.4) H 07/15/25 10:01
Abs Immat Gran (auto) 0.3 10^3/uL (0-0.05) H 07/11/25 19:37
Absolute Neuts (auto) 18.4 10^3/uL (1.4-6.5) H 07/11/25 19:37
Absolute Lymphs (auto) 5.6 10^3/uL (1.2-3.4) H 07/11/25 19:37
Absolute Monos (auto) 0.9 10^3/uL (0.1-0.6) H 07/11/25 19:37
Absolute Eos (auto) 0.9 10^3/uL (0-0.7) H 07/11/25 19:37
Absolute Basos (auto) 0.2 10^3/uL (0-0.2) 07/11/25 19:37
Immature Gran % 1.2 % (0-0.5) H 07/11/25 19:37
Neutrophils % 70.0 % (42.2-75.2) 07/11/25 19:37
Lymphocytes % 21.2 % (20.5-51.1) 07/11/25 19:37
Monocytes % 3.5 % (1.7-9.3) 07/11/25 19:37
Eosinophils % 3.5 % (0-6) 07/11/25 19:37
Basophils % 0.6 % (0-2) 07/11/25 19:37
Creatinine 0.7 mg/dL (0.6-1.0) 07/15/25 04:30
Vital Signs
Vital Signs
Temp Pulse Resp BP Pulse Ox
99.2 F 68 22 149/59 99
07/15/25 11:47 07/15/25 12:00 07/15/25 12:00 07/15/25 12:00 07/15/25 12:00
[2025-07-15 14:29] LABS: Reticulocyte Count 1.9 % (0.4-2.8)
[2025-07-15] MEDS: TIGAN 200 MG IM (15:30)
[2025-07-15] MEDS: DILAUDID 0.25 MG IV (15:30)
[2025-07-15] MEDS: PLAVIX 75 MG PO (15:30)
[2025-07-15 16:22] LABS: TSH < 0.02 uIU/ml (0.47-4.68)
--- NOTE | 2025-07-15 16:44 | PTCARENOTE ---
Pt. stand by assisted back to bed. Full tin hygiene provided. FMS flushed and bag changed- see flow sheet. C/O mod abd pain and int nausea- admin prn IV Dilaudid and IM Tigan- see JAN. Report given to IMU RN and pt. transported via bed on
threat monitoring analyst w belongings to [phone] [id number]. No further needs from this RN.
[2025-07-15 17:12] LABS: Glucose - Point of Care 127 mg/dl (70-99)
--- NOTE | 2025-07-15 18:27 | PTCARENOTE ---
Received from ICU, IMU monitors intact. Oriented to room. Pleasant no needs at this time. SR on tele 70, BP 159/67- 99% on RAIR. Fecal management system intact. IVF infusing. Call chew in reach.
[2025-07-15] MEDS: ELIQUIS 5 MG PO (19:56)
[2025-07-15 21:46] LABS: Glucose - Point of Care 108 mg/dl (70-99)
[2025-07-16] VITALS (29 sets, daily range): BP systolic 86–166; BP diastolic 36–100; BMI 30.1
--- NOTE | 2025-07-16 00:08 | PTCARENOTE ---
FMS bag full, checked patient and found system to be leaking. Pt cleaned up, FMS balloon deflated and line adjusted. Balloon reinflated and no more leaking noted. New bag applied. Pt placed on purewick overnight; Reported moderate abdominal
pain, dilaudid administered with + effect. Will continue to monitor and assess.
[2025-07-16] MEDS: DILAUDID 0.25 MG IV ×2 (00:18→03:49)
[2025-07-16] MEDS: TIGAN 200 MG IM (01:38)
--- NOTE | 2025-07-16 01:41 | PTCARENOTE ---
Nausea/vomiting episode overnight. Tigan IM administered. Dry heaving and small amount of clear brown emesis produced into basin. Pt continues to report 7/10 abdominal pain despite Dilaudid administration. Pt refused further opiates at this time
due to nausea/vomiting. Will continue to monitor and assess.
[2025-07-16 04:06] LABS: Hematocrit 24.9 % (37.0-47.0); Hemoglobin 8.3 g/dL (12.0-16.0); Mean Corp Hgb Conc. 33.3 g/dL (33.0-37.0); Mean Corpuscular Volume 98.0 fL (81.0-99.0); Platelet Count 473 10^3/uL (130-400); Red Cell Dist. Width 17.4 % (11.5-14.5)
--- NOTE | 2025-07-16 05:08 | PTCARENOTE ---
FMS continues to leak; Drainage noted to be burgundy in color - FMS removed. Overnight provider notified; AM labs drawn - Hgb = 8.3; Will continue to monitor and assess.
[2025-07-16] MEDS: SYNTHROID 75 MCG PO (05:53)
[2025-07-16] MEDS: NSS 1000 IV ×3 (05:53→20:33)
[2025-07-16] MEDS: LOPRESSOR 50 MG PO (05:53)
[2025-07-16] MEDS: FIRVANQ 125 MG PO (05:53)
--- NOTE | 2025-07-16 06:16 | W.PN.UPDATE ---
Update Note
Progress Note Update
~ RN noted that patient had leakage from FMS, noted large amount of drainage was burgundy in color, FMS removed. Updated that patient had additional bowel movements of blood and clots x 2 approximately 50 mls. Vital signs stable, BP lower this am @
108/45, HR 84. Hgb stable @ 8.3. Will hold on additional IV fluids due to cardiac hx. Patient has no complaints of pain, abdomen soft, tender to palpation. Will order serial H&H. Patient type and screened. Written consent obtained from patient.
Patient made NPO. Eliquis and Plavix put on hold. TT to GI, Dr. Torres, updated on overnight events, she requested we get CT abd/pelvis angio now, order placed. Called unit to let know stat CT ordered.
AM labs: Potassium 2.7. Ordered K-Ac 40 meq IV x 1 now.
[2025-07-16 06:39] LABS: Hematocrit 26.1 % (37.0-47.0); Hemoglobin 8.6 g/dL (12.0-16.0)
[2025-07-16 07:07] LABS: Blood Urea Nitrogen 8 mg/dl (7-17); Calcium 8.1 mg/dl (8.4-10.2); Carbon Dioxide 26 mmol/L (22-30); Chloride 107 mmol/L (98-107); Estimated Creatinine Clearance 88 ml/min; Glucose 109 mg/dl (70-99); Magnesium 1.7 mg/dl (1.6-2.3); Potassium 2.7 mmol/L (3.5-5.1); Sodium 137 mmol/L (135-145); eGFR > 60.00
--- NOTE | 2025-07-16 07:57 | PTCARENOTE ---
Received report from RN of events overnight. Orders obtained from Dr. Boyer. Patient back from STAT angio. Patient having rectal bleeding with clots overnight. Patient had moderate sized rectal bleeding with small clots prior to going to CT scan.
Last hemoglobin 8.6. Next H&H at 10:30am. Patient AAOx3. Reports ongoing nausea and upper abdominal pain. BP's soft. 100/66,79,24, afebrile. Fluids infusing as ordered. Will monitor frequently.
[2025-07-16] MEDS: KCL 270 MEQ IV (08:06)
--- NOTE | 2025-07-16 08:24 | W.PN.ONC2 ---
Today's Communication / Plan
-
f/u vascular consult for complete occlusion of the SMA
OR planned for today
Impression
Impression
p/w ab pain,dark emesis, & diarrhea
occlusion SMA, small bowel ischemia, prior sigmoidectomy
ABLA/GIB
s/p TCAR at [facility]
acute on chronic normocytic anemia -chronic anemia with Hgb ~11g/dL noted 2023. iron studies c/w AOCD. Less likely hemolysis with normal LFTs & LDH, JUSTIN negative. No B12 or folate deficiency
Atrial fibrillation on DOAC
Reactive leukocytosis (neutrophilia) +/- steroids
Aortic stenosis s/p AVR
CVA
CHF
panhypopituitarism/Adrenal insufficiency/hypothyroid
c.diff ag +/ toxin negative
Plan
Plan
resumption of AC/AP for cardiac hx based on cardiology/vascular surgery/GI risk benefit
on PPI
PO Vanco & IVabx -ID following
f/u haptoglobin
check APLS panel, follow up vascular consult
serial q6 H/H, daily CBC -transfuse Hgb <7 or as needed for sxs anemia
Subjective/Objective
Subjective
afebrile, no hypoxia or hypotension
using hydromorphone prn pain
bloody BM overnight
Vital Signs:
Vital Signs
Temp Pulse Resp BP Pulse Ox
98.0 F 84 21 108/45 98
07/16/25 02:38 07/16/25 06:07 07/16/25 06:07 07/16/25 06:07 07/16/25 06:01
Lab Results:
Laboratory Data
WBC 22.0 10^3/uL (4.8-10.8) H 07/16/25 03:18
Hgb 8.6 g/dL (12.0-16.0) L 07/16/25 06:33
Plt Count 473 10^3/uL (130-400) H D 07/16/25 03:18
eGFR > 60.00 07/16/25 06:33
Physical Exam
HEENT: No Jaundice
Pulmonary: Other (unlabored)
--- NOTE | 2025-07-16 09:00 | W.PN.UPDATE ---
Update Note
Progress Note Update
Overnight events noted. Patient having burgundy stools. Plavix and Eliquis on hold. Hgb 8.6.
CTA abdomen and pelvis results texted to me by radiology as noted:
1. SEVERE ACUTE SMALL BOWEL ISCHEMIA with pneumatosis in small bowel loops in the left side of the midabdomen, moderate mesenteric edema, and small volume ascites.
2. 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
3. Severe calcific atherosclerotic plaque in the abdominal aorta and iliac arteries.
4. Moderate diverticulosis in the descending colon.
5. Previous sigmoidectomy.
6. Mild chronic bilateral renal disease.
7. Moderate-sized paraesophageal hiatal hernia.
8. Distended gallbladder containing cholelithiasis.
9. Small right and minimal left pleural effusions.
Urgent consult placed to the vascular team, Dr. Beltran is aware.
Patient received eliquis 5 mg once on 07/14 at 8pm, and once on 07/15 at 8pm.
She also received plavix 07/14 and 07/15.
Currently NPO, with eliquis and plavix on hold.
Vital signs normal, will continue to monitor closely, trend hemoglobin.
[2025-07-16 09:03] LABS: Glucose - Point of Care 92 mg/dl (70-99)
--- NOTE | 2025-07-16 09:05 | W.PN.HOSP.TC ---
Today's Communication/Plan
-
see bold
Assessment / Plan
Assessment / Plan
HPI: 69y F with PMH significant for s/p BioAVR, post-op CVA and subsequent hospitalization for CHF who presents to ED complaining of N/V/D since last PM.
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
- Urgent consult placed to vascular surgery and general surgery
- Patient to be taken to the OR emergently today
- Last dose of Eliquis and Plavix 07/15
#Hemorrhagic shock
- Normal saline bolus, transfuse blood, Levophed to maintain MAP greater than 65
- Change oral steroids to IV Solu-Cortef
- Transfer to ICU, consult inside sales executive
Sepsis
Acute infectious gastroenteritis, unknown organism
Lactic acidosis
- Transferred to the IMU 07/12 for closer monitoring
- Appreciate GI input, NG tube inserted 07/12, removed 07/15
- Stool studies positive for C. difficile antigen, negative for toxin
- Appreciate ID input, continue Flagyl, resume Zosyn, unclear if she will need vancomycin enemas
- Lactic acidosis resolved, trend fever and white count
Worsening anemia, due to sepsis, acute blood loss, and anemia of chronic disease
- Appreciate hematology input, due to sepsis, acute blood loss, and anemia of chronic disease
- She is getting 4 units of blood so far today, continue to transfer blood and blood products as needed
Acute toxic metabolic encephalopathy
- Due to sepsis, resolved, provide supportive care
Coffee-ground emesis
- Started on Protonix 40 mg IV twice daily
- Cleared by GI to resume Eliquis and plavix 07/14
Paroxysmal Atrial Fibrillation with rapid ventricular response
- Due to sepsis. Hold Eliquis
- Appreciate cardiology input, converted to normal sinus rhythm overnight on diltiazem drip
- Change oral metoprolol to IV metoprolol with hold parameters
Aortic Stenosis s/p BioAVR
Chronic HFpEF
- Stable. No evidence of volume overload on exam.
- Hold Farxiga / Lasix acutely.
S/p CVA
- CVA POD #1 after AVR. Transferred to [facility] for TCAR.
- No new neurologic deficits.
- Hold Plavix
PANTERA
- Likely due to dehydration +/- Bactrim use / med effect
- Creatinine normal today, down from 1.9 upon admission
- Trend creatinine, no nephrotoxic drugs/NSAIDs
Hypophosphatemia
Hypomagnesemia
Hypokalemia
- Replete as needed
Prolonged QTc
- Avoid Zofran and other QTc prolonging agents
- Continue Tigan IM as needed
Panhypopituitarism
Adrenal Insufficiency
Hypothyroidism
- Patient maintained on hydrocortisone daily.
- Given acute illness, hypotension, etc
- Change back to stress dose IV steroids
- Continue current T4 replacement when able
DM-II
- Hemoglobin A1c 5.7. Hold PO metformin acutely.
- Follow glucose and cover with SSI as needed - especially on higher dose steroids.
Frequent UTIs
- UA not suggestive of UTI at present.
- Just completed 3 day course of Bactrim on .
- Continue methenamine for prevention and monitor for any symptoms.
DVT Prophylaxis: SCD secondary to bloody stools
Code Status: Full
Updated at bedside 07/16
Critical care time 35 minutes
Physical Exam
General: Appears acutely ill, pale
HEENT: Normocephalic, Atraumatic, EOMI, MMM
Respiratory: Clear to Auscultation bilaterally
Cardiac: Normal S1/S2, RRR
GI: Soft, mildly distended, mild tenderness diffusely
Extremities: No Clubbing, Cyanosis, or Edema
Neuro: Confusion resolved
Anticipated Discharge: > 48 hours
Subjective/Interval History
-
Date of Service: July 16, 2025
Overnight events noted. Patient with multiple burgundy stools early this morning. She complains of abdominal pain. She also reports dizziness, lightheadedness, weakness. No fever, no vomiting.
Objective Data
-
Labs:
Laboratory Results
07/16/25 07/16/25 07/16/25
03:18 06:33 12:15
WBC 22.0 H
Hgb 8.3 L 8.6 L Pending
Hct 24.9 L 26.1 L Pending
Plt Count 473 H D
Sodium Cancelled 137
Potassium Cancelled 2.7 L*
Chloride Cancelled 107
Carbon Dioxide Cancelled 26
BUN Cancelled 8
Creatinine Cancelled 0.6
Glucose Cancelled 109 H
Calcium Cancelled 8.1 L
07/16/25
18:15
WBC
Hgb Pending
Hct Pending
Plt Count
Sodium
Potassium
Chloride
Carbon Dioxide
BUN
Creatinine
Glucose
Calcium
Vital Signs:
Vital Signs
Temp Pulse Resp BP Pulse Ox
97.6 F 84 21 108/45 98
07/16/25 07:20 07/16/25 06:07 07/16/25 06:07 07/16/25 06:07 07/16/25 06:01
I&O
07/15/25 07/16/25 07/17/25
06:59 06:59 06:59
Intake Total 3100.0 / 3205.0 2250 / 2250
Output Total 1500 / 1750 3100 / 3100
Balance 1600.0 / 1455.0 -850 / -850
--- NOTE | 2025-07-16 09:30 | CON.VAS ---
Consultation
Consultation Request
Date/Time Consultation Performed: 07/16/25 9:30
Performing Provider: Devin
Reason for Consultation: SMA occlusion
Medical History
-
Chief Complaint: Abdominal pain
History of Present Illness:
69 yo female with PMH significant for DM, RA, afib on eliquis, diverticulitis with colovesical fistula s/p RAL sigmoidectomy 2022 ([facility]), s/p AVR with Dr Ponce complicated by post op CVA on POD1 transferred to [facility] for TCAR presented on 07/11/25
with nausea/vomiting/diarrhea/weakness(no blood noted) at the time was being treated for a UTI outpatient. Pt was admitted for management. Initial noncontrast CT on 07/11/25 had no significant findings.
She began having coffee ground emesis on Saturday, GI was consulted, NGT placed. Pt was noted to have resolution of this Saturday and NGT was removed. From 07/12-07/15 hgb was noted to be down trending. Pt began with abd pain and rectal bleeding at
1am. At that time CTA was completed suggesting severe acute small bowel ischemia with pneumatosis in small bowel loops in the left side of the midabdomen, moderate mesenteric edema, and small volume ascites, complete occlusion of the SMA. Vascular
consult for CTA findings.
Pt seen at bedside this am with family present. Pt appeared sleepy but was able to answer most questioning. Pale appearing. Abd was noted to be tender but soft. Slight mottling to upper abdomen. Extremities cool to touch. Pt having large amounts of
blood clots by rectum. Per the nurse this seems to be increasing in volume this morning.
Spoke with pt and family at length about CTA findings and urgent need for intervention.
Past Medical History
Past Medical History: Arrhythmias (afib on eliquis), CHF, CVA, HTN, Hypothyroidism, NIDDM, Valvular Disease (s/p AVR by Dr Ponce 05/2025) and Other (RA on chronic steroid, UTI's, panhypopituitarism (Rathke's cleft cyst))
Past Surgical History: Bowel Resection (RAL sigmoidectomy 2022), Cardiac (AVR) and Other (TCAR 06/2025)
Social History
Tobacco: Former Smoker
Alcohol: Former
Drug: None
Family History
Family History: Reviewed & Not Pertinent
Allergies / Home Medications
Allergy/AdvReac Type Severity Reaction Status Date / Time
No Known Allergies Allergy Verified 07/11/25 19:19
�Medication �Instructions �Recorded �Confirmed �Type
furosemide 20 mg tablet 20 mg PO DAILY Fluid 03/04/23 07/11/25 History
retention/Swelling
hydrocortisone 10 mg tablet 20 mg PO DAILY Anti-inflammatory 03/04/23 07/11/25 History
levothyroxine 75 mcg tablet 75 mcg PO DAILY Thyroid 09/17/24 07/11/25 History
(Synthroid)
lisinopril 5 mg tablet 10 mg PO DAILY Blood Pressure 05/04/25 07/11/25 History
pantoprazole 40 mg tablet,delayed 40 mg PO DAILY Gastrointestinal 05/04/25 07/11/25 History
release Issue
sennosides 8.6 mg tablet (senna) 8.6 mg PO BID PRN constipation 06/08/25 07/11/25 History
acetaminophen 325 mg tablet 650 mg (2 x 325 mg) PO Q4HPRN PRN 06/12/25 07/11/25 Rx
headache, pain, fever #0 tabs
apixaban 5 mg tablet 5 mg PO BID Arrhythmia #60 tabs 06/13/25 07/11/25 Rx
metoprolol succinate 25 mg 25 mg PO BID Heart 06/13/25 07/11/25 Rx
tablet,extended release 24 hr disease/condition #60 tabs
blood sugar diagnostic (Contour ##100 06/14/25 07/11/25 Rx
Next Test Strips)
clopidogrel 75 mg tablet 75 mg PO DAILY Blood clot 06/14/25 07/11/25 Rx
prevention/tx #0 tabs
dapagliflozin propanediol 10 mg 10 mg PO DAILY Diabetes #30 tabs 06/14/25 07/11/25 Rx
tablet (Farxiga)
lancets 21 gauge (Color Lancets) ##100 06/14/25 07/11/25 Rx
metformin 500 mg tablet 500 mg PO BID@0800,1700 Diabetes 06/14/25 07/11/25 Rx
#60 tabs
methenamine hippurate 1 gram tablet 1 g PO BID Urinary issue #30 tabs 06/14/25 07/11/25 Rx
multivitamin 1 tab PO DAILY Supplement #0 tabs 06/14/25 07/11/25 Rx
rosuvastatin 20 mg tablet 20 mg PO DAILY High cholesterol #0 06/14/25 07/11/25 Rx
tabs
Review of Systems
-
History Source: Patient and Family
All other systems: Negative unless noted
Constitutional: Reports Fatigue
EENT: Reports No Symptoms
Respiratory: Reports No Symptoms
Cardiac: Reports Diaphoresis
Vascular: Denies Leg Pain / Claudication
Abdomen/GI: Reports Abdominal Pain, Nausea, Bloody Stools and Pain
: Reports No Symptoms
Musculoskeletal: Reports No Symptoms
Skin: Reports No Symptoms
Neurological: Reports No Symptoms
Physical Exam
Vital Signs
Temp Pulse Resp BP Pulse Ox
97.6 F 88 29 92/55 97
07/16/25 07:20 07/16/25 09:44 07/16/25 09:44 07/16/25 09:44 07/16/25 09:00
Lab Results
07/16/25 06:33
Troponin I 0.014 ng/ml 07/12/25 14:42
Physical Exam
General: Pain and Other (pale appearing)
HEENT: Normocephalic and Atraumatic
Respiratory: Non Labored Respirations
Cardiac: Negative JVD
GI: Soft, Tender and Other (mottling to upper abdomen)
Musculoskeletal: No Clubbing
Skin: Other (cool)
Neuro: Awake, Alert and Oriented
Psych: Other (sleepy)
Assessment / Plan
-
69 yo female with CTA findings of SMA occlusion and acute bowel ischemia
Plan:
-OR emergently for exlap, possible thrombectomy of SMA, general surgery for possible bowel resection as well
-Blood, FFP and PLTs on hold
-Pt and family in agreement of plan
Data Reviewed
-
CT Scan: Discussed with Patient and Discussed with Family
Labs: Labs Reviewed by me
--- NOTE | 2025-07-16 10:12 | W.PN.CD ---
Today's Communication / Plan
-
-Sepsis/Lactic acidosis--now found to have SMA occlusion with severe acute small bowel ischemia.
-WBC trending up significantly.
-Surgery at bedside; patient will go to the OR today.
-Patient converted back to sinus rhythm on Cardizem drip 2 days ago; remains in sinus rhythm.
-Cardizem drip discontinued yesterday; monitor telemetry closely--may need to resume Cardizem drip or even placed on amiodarone if goes back into A-fib with RVR in this acute setting.
-Continue to hold Eliquis and clopidogrel, given acute bleed.
-Transfuse blood as needed.
-Replete potassium aggressively (keep K greater than 4.0).
Impression / Plan
-
Impression
69 yo F (known to Dr. Bacon, her primary Arbitrator) with s/p BioAVR and aortic enlargement (05/27/[address] Ponce), post-op CVA , TCAR done at [facility] and subsequent hospitalization for CHF (06/08/2025), paroxysmal A-fib (on Eliquis),
hypertension, hyperlipidemia, panhypopituitarism, diabetes type 2, and HFpEF who presents to ED complaining of N/V/D. She was septic and in PANTERA at presentation. Cardiology was consulted for A-fib with RVR.
Plan
#Sepsis/Lactic acidosis--now found to have SMA occlusion with severe acute small bowel ischemia
-WBC trending up significantly
-Surgery at bedside; patient will go to the OR today.
-Management as per surgery/primary team.
#A-fib with RVR
Patient was diagnosed in A-fib in June during her admission for acute heart failure exacerbation. Patient was briefly on amiodarone but was off of it because of her prolonged QT (she was on ciprofloxacin for her UTI). She was on home Eliquis and
metoprolol after hospital discharge since then, without missing any doses.
-Patient converted back to sinus rhythm on Cardizem drip 2 days ago; remains in sinus rhythm.
-Cardizem drip discontinued yesterday; monitor telemetry closely--may need to resume Cardizem drip or even placed on amiodarone if goes back into A-fib with RVR in this acute setting.
-Continue to hold Eliquis and clopidogrel, given acute bleed.
#Anemia:
-Transfuse blood as needed.
-Continue to hold Eliquis and clopidogrel, given acute bleed.
Her Sheldon Vasc score�8
Continue telemetry monitoring.
#CVA s/p TCAR
Patient still on clopidogrel; it has been more than 3 weeks since CVA.
Request for medical records from [facility]
-Patient may ultimately be able to be placed on Eliquis and aspirin after this acute bleeding episode resolves.
#AV stenosis s/p AVR, aortic enlargement
Stable
#HFpEF
Stable. No evidence of volume overload on exam.
Continue to hold Farxiga / Lasix
#PANTERA
Resolved
Monitor lytes, renal function
-Replete potassium aggressively (keep K greater than 4.0).
Physical Exam
Vital Signs/Labs
Vital Signs
Temp Pulse Resp BP Pulse Ox
97.6 F 88 29 92/55 97
07/16/25 07:20 07/16/25 09:44 07/16/25 09:44 07/16/25 09:44 07/16/25 09:00
07/15/25 07/16/25 07/17/25
06:59 06:59 06:59
Actual Weight 77.2 kg 79.605 kg
07/16/25 06:33
Magnesium 1.7 mg/dl (1.6-2.3) 07/16/25 06:33
TSH Cancelled 07/15/25 13:11
Physical Exam
Constitutional: No acute distress
EENT: Anicteric
Cardiovascular: Rhythm & rate is regular, Pedal edema is absent, Systolic murmur absent and S1S2 is normal
Respiratory: Respiratory effort normal and Lungs clear to auscul.
GI: Soft
Neuro/Psych: Alert
Other: Skin (Warm, dry, intact)
Data Reviewed
-
Date of Service: July 16, 2025
EKG: Report Reviewed by me (Sinus rhythm)
Echo: Report Reviewed by me (EF 65%; well-seated normally functioning bioprosthetic aortic valve prosthesis. )
Labs: Labs Reviewed by me
Critical Care Time (in minutes): 40
--- NOTE | 2025-07-16 10:15 | CON.GS ---
Addendum entered and electronically signed by Mani Chaudhari MD 07/16/25 11:08:
Patient seen and examined.
Patient is a 69 yo F with a PMH of obesity, HTN, HLD, Afib (on Eliquis, LD 07/15 PM), s/p TAVR on 05/27 c/b acute CVA on POD#1 s/p TCAR (on Plavix), CHF, adrenal insufficiency, NIDDM, and diverticulitis s/p RAL sigmoidectomy and takedown of bladder
fistula in [address] Cobos. She presented and was initially admitted to back on 07/11 with nausea, vomiting, and diarrhea. Initial CT scan concerning for possible gastroenteritis. She then subsequently had issues with bloody bowel movements
and a drop in her hemoglobin. She has been on and off her antiplatelet and anticoagulation. Due to her persistent symptoms a repeat CT scan was performed which was concerning for SMA occlusion with radiographic findings concerning for small bowel
ischemia. General surgery and vascular surgery have been consulted. Ms. Newman reports abdominal pain.
Gen: pale, weak
Abd: soft, mild tenderness in LEFT mid abdomen, obese, ND, no rebound or guarding
Prior documentation, labs, and imaging reviewed
Patient is a 69 yo F with concern for small bowel ischemia secondary to SMA occlusion
Natural history and pathophysiology was reviewed with her . CT scan imaging as relates to her SMA occlusion and bowel ischemia was reviewed. Emergent clinical situation necessitating operative exploration and revascularization. Vascular
surgery consult noted. Plan for attempted percutaneous intervention with possible need for exploratory laparotomy and revascularization. Given her abdominal discomfort and CT scan findings she will need some form of evaluation of her small bowel.
If able to be revascularized through a percutaneous approach then would start with a diagnostic laparoscopy in the hopes of minimizing potential bleeding risks and wound healing. If bowel is ischemic and necrotic necessitating resection we
discussed the possibility of an open abdomen.
Plan for a laparoscopic possible open exploration of the abdomen, possible small bowel resection, possible open abdomen. The procedure itself, as well as the risks, benefits, and alternatives was discussed. Specifically, we discussed the risks of
bleeding, infection, injury to surrounding structures (bowel), staple line and anastomotic leaks, further ischemia necessitating further interventions, repeat abdominal explorations, wound healing complications, hernia formation, and general
anesthetic risks. Postprocedural recovery was briefly discussed. All questions answered. Consent obtained from the .
-- Laparoscopic possible open exploration of the abdomen, possible small bowel resection, possible open abdomen
-- Abd: Levaquin and Flagyl for most importantly translocation and possible C.diff coverage, would hold on PO Vancomycin given bowel issues
-- IVF and transfusion as needed
-- Hold Plavix and Eliquis, will need to convert to Hep gtt
Original Note:
Consultation
-
Date/Time Consultation Performed: 07/16/25 2145
Requesting Provider: Do
Performing Provider: Gigi Chaudhari
Reason for Consultation: ischemic bowel
Medical History
-
Chief Complaint: abdominal pain
History of Present Illness:
69 yo female with a h/o NIDDM, RA on chronic steroids, AF on Eliquis (LD 07/15), recurrent UTI's, diverticulitis with colovesical fistula s/p RAL sigmoidectomy 2022 ([facility]), s/p bio AVR 05/27/25 ([facility]) with stroke on POD #1 flown to [facility] for TCAR
who presented on 07/11/25 with c/o N/V and persistent diarrhea with onset of symptoms on 07/10/25 after recently starting Bactrim Ds for UTI as an outpatient. She was c-diff antigen positive and toxin negative and was placed on vancomycin initially for
treatment, other stool studies negative. Her initial CT without IV or oral contrast was without significant acute findings. Coffee ground emesis was noted and GI was consulted to evaluate. NGT was placed for management of GI symptoms and was
eventually able to be removed with no further bloody outputs/coffee grounds noted. Diet was initiated and advanced with resumption of PO plavix on 07/14 and Eliquis yesterday. Early this morning, patient developed worsening abdominal pain with
passage of bloody stools and clots. Anticoagulation was placed on hold and urgent CT imaging was obtained. She has additionally been followed by cardiology this admission for episode of rapid afib which resolved with IV cardizem. She is sleepy and
minimally participatory in care currently d/t medical condition. Majority of history obtained from chart, primary team and family at bedside. She does note some persistent pain but not tender on exam currently s/p receiving IV Dilaudid.
Past Medical History
Past Medical History: Arrhythmias (paroxysmal Afib), CHF (HFpEF), CVA, Diverticulitis, HTN, Hypothyroidism, NIDDM, Valvular Disease ( s/p Bio AVR) and Other (RA on chronic steroid, UTI's, panhypopituitarism (Rathke's cleft cyst))
Past Surgical History: Bowel Resection (RAL sigmoidectomy 2022), Cardiac (Bio AVR 05/2025, TCAR 05/2025) and Other (pilonidal cyst)
Social History
Tobacco: Former Smoker (quit 5 months ago)
Alcohol: None
Family History
Family History: Reviewed & Not Pertinent
Allergies / Home Medications
Allergy/AdvReac Type Severity Reaction Status Date / Time
No Known Allergies Allergy Verified 07/11/25 19:19
�Medication �Instructions �Recorded �Confirmed �Type
furosemide 20 mg tablet 20 mg PO DAILY Fluid 03/04/23 07/11/25 History
retention/Swelling
hydrocortisone 10 mg tablet 20 mg PO DAILY Anti-inflammatory 03/04/23 07/11/25 History
levothyroxine 75 mcg tablet 75 mcg PO DAILY Thyroid 09/17/24 07/11/25 History
(Synthroid)
lisinopril 5 mg tablet 10 mg PO DAILY Blood Pressure 05/04/25 07/11/25 History
pantoprazole 40 mg tablet,delayed 40 mg PO DAILY Gastrointestinal 05/04/25 07/11/25 History
release Issue
sennosides 8.6 mg tablet (senna) 8.6 mg PO BID PRN constipation 06/08/25 07/11/25 History
acetaminophen 325 mg tablet 650 mg (2 x 325 mg) PO Q4HPRN PRN 06/12/25 07/11/25 Rx
headache, pain, fever #0 tabs
apixaban 5 mg tablet 5 mg PO BID Arrhythmia #60 tabs 06/13/25 07/11/25 Rx
metoprolol succinate 25 mg 25 mg PO BID Heart 06/13/25 07/11/25 Rx
tablet,extended release 24 hr disease/condition #60 tabs
blood sugar diagnostic (Contour ##100 06/14/25 07/11/25 Rx
Next Test Strips)
clopidogrel 75 mg tablet 75 mg PO DAILY Blood clot 06/14/25 07/11/25 Rx
prevention/tx #0 tabs
dapagliflozin propanediol 10 mg 10 mg PO DAILY Diabetes #30 tabs 06/14/25 07/11/25 Rx
tablet (Farxiga)
lancets 21 gauge (Color Lancets) ##100 06/14/25 07/11/25 Rx
metformin 500 mg tablet 500 mg PO BID@0800,1700 Diabetes 06/14/25 07/11/25 Rx
#60 tabs
methenamine hippurate 1 gram tablet 1 g PO BID Urinary issue #30 tabs 06/14/25 07/11/25 Rx
multivitamin 1 tab PO DAILY Supplement #0 tabs 06/14/25 07/11/25 Rx
rosuvastatin 20 mg tablet 20 mg PO DAILY High cholesterol #0 06/14/25 07/11/25 Rx
tabs
Review of Systems
-
History Source: Patient and Family
All other systems: Negative unless noted
A 10 point review of systems was completed, and was negative except as per HPI.
Physical Exam
Vital Signs
Temp Pulse Resp BP Pulse Ox
97.6 F 88 29 92/55 97
07/16/25 07:20 07/16/25 09:44 07/16/25 09:44 07/16/25 09:44 07/16/25 09:00
07/15/25 07/16/25 07/17/25
06:59 06:59 06:59
Actual Weight 77.2 kg 79.605 kg
Body Mass Index (BMI) 30.1
Lab Results
07/16/25 06:33
WBC 22.0 10^3/uL (4.8-10.8) H 07/16/25 03:18
Hgb 8.6 g/dL (12.0-16.0) L 07/16/25 06:33
Hct 26.1 % (37.0-47.0) L 07/16/25 06:33
Plt Count 473 10^3/uL (130-400) H D 07/16/25 03:18
Abs Immat Gran (auto) Cancelled 07/15/25 13:11
Neutrophils % Cancelled 07/15/25 13:11
Physical Exam
General: Other (sleepy, pale, ill appearing)
HEENT: Normocephalic
Respiratory: Non Labored Respirations
GI: Soft, Non Tender and Distended (mild)
Skin: Warm, Dry and Other (pale)
Neuro: Awake and Alert (sleepy)
Psych: Calm
Assessment / Plan
-
69 yo female with a h/o NIDDM, RA on chronic steroids, AF on Eliquis (LD 07/15), recurrent UTI's, diverticulitis with colovesical fistula s/p RAL sigmoidectomy 2022 ([facility]), s/p bio AVR 05/27/25 ([facility]) with stroke on POD #1 flown to [facility] for TCAR
who presented on 07/11/25 with c/o N/V and persistent diarrhea with onset of symptoms on 07/10/25 after recently starting Bactrim Ds for UTI as an outpatient. She was c-diff antigen positive and toxin negative and was placed on vancomycin initially for
treatment, other stool studies negative. Her initial CT without IV or oral contrast was without significant acute findings. Coffee ground emesis was noted and GI was consulted to evaluate. NGT was placed for management of GI symptoms and was
eventually able to be removed with no further bloody outputs/coffee grounds noted. Diet was initiated and advanced with resumption of PO plavix on 07/14 and Eliquis yesterday.
Early this morning, patient developed worsening abdominal pain with passage of bloody stools and clots. Anticoagulation was placed on hold and urgent CT imaging was obtained. CT with concerning findings of SMA occlusion with evidence of bowel
threat/compromise with pneumatosis noted and evidence of moderate mesenteric edema/bowel ischemia.
Labs with rising leukocytosis, acute blood loss anemia and severe hypokalemia, mild hypophosphatemia. Afebrile. Low but stable BP thus far. Mild tachypnea.
Plan:
Keep NPO for OR
Hold Plavix/Eliquis for OR
D/W vascular surgery, emergency OR planned for ex lap for revascularization of the SMA
General surgery available for bowel resection as needed
Will broaden abx for better GI coverage, c/w Flagyl and add Levaquin
Planned transfusion x2 units as per primary team
Placed blood (4 units) and platelets on hold for OR
Replace K/Mg
Case d/w cardiology and hospitalist at bedside
[2025-07-16] MEDS: MAGNESIUM SULFATE 102 GRAMS IV (10:19)
[2025-07-16 10:20] LABS: Hematocrit 25.2 % (37.0-47.0); Hemoglobin 8.5 g/dL (12.0-16.0)
[2025-07-16 10:50] LABS: Glucose - Point of Care 86 mg/dl (70-99)
[2025-07-16] MEDS: SOLU-CORTEF 50 MG IV ×2 (10:53→20:56)
[2025-07-16] MEDS: NSS (PRESERVATIVE FREE) 10 ML IV ×2 (10:53→20:57)
[2025-07-16] MEDS: PROTONIX IV 40 MG IV ×2 (10:54→20:57)
[2025-07-16] MEDS: LEVOPHED 250 IV (11:02)
[2025-07-16] MEDS: CRESTOR PO (11:05)
--- NOTE | 2025-07-16 11:08 | W.SUR.PREOP ---
Pre-Operative Surgical Note
-
I have examined this patient prior to the performance of the scheduled procedure.
The patient's condition is unchanged from the time of the current History and
Physical and the patient is able to undergo the scheduled procedure.
--- NOTE | 2025-07-16 11:16 | PTCARENOTE ---
Waiting for patient to go to OR. Report given to [employer]ULT[employer] E[employer] AGENT. Levo drip infusing at 4mcg/hr. NSS bolus infusing with potassium rider via left midline. BP's improving 120/50,90,14, 100% 3L. Blood bank notified that patient will be in OR.
--- NOTE | 2025-07-16 11:26 | PTCARENOTE ---
Patient left unit to OR. Updates on medication and patient status given to RN. All belongings given to Bill patient's .
--- NOTE | 2025-07-16 11:26 | W.PN.UPDATE ---
Update Note
Progress Note Update
This patient was seen and examined in collaboration with MERISSA Dowd. I agree with the history and physical exam as well as the assessment and plan. Full consult note will be entered separately. I have the following additions:
69-year-old female with known arterial disease
Recent cardiac surgery by Dr. Ponce
Postoperative CVA which required transfer to the [facility] and subsequent [facility].
Presented July 11 with acute onset nausea, vomiting and 'constant diarrhea'
Patient developed GI bleed with bloody diarrhea
Symptoms persisted and contrast-enhanced CT was performed and demonstrates SMA occlusion with evidence of bowel ischemia.
I personally reviewed the CT scan images and report and agree with the radiology findings
On exam the patient is very ill-appearing
Hypotensive mottled
She is intermittently alert
at bedside
Diffuse abdominal pain to light touch
My recommendation is that we proceed to the operating room immediately for revascularization of the SMA and evaluation of the bowel. I discussed this case with Dr. Chaudhari who will be available. The technical aspects of this procedure were
discussed with the patient and her in detail. The benefits and rationale for this approach were discussed with them in detail. The emergent nature of operative intervention was explained to them. Operative risks were discussed with them
in detail including but not limited to , heart attack, stroke, bleeding, infection, bowel resection, rethrombosis of the superior mesenteric artery, ostomy and the need for additional procedures/return to the operating room.
The patient and her expressed a clear understanding of our conversation and agreed to proceed with surgery.
Signed:
Arvin Beltran III, MD
Vascular Surgery
[facility]
--- NOTE | 2025-07-16 11:47 | W.PN.ID1 ---
Date of Service
Date of Service: July 16, 2025
Today's Communication
Begin Zosyn. Await OR.
Assessment / Plan
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
A-fib with RVR.
GI bleed
Marked leukocytosis
C. difficile antigen (+) / toxin (-)
Diarrhea
Lactic acidosis
Aortic Stenosis
Hypertension
HFpEF
Paroxysmal Atrial Fibrillation
DM-II
Panhypopituitarism (Rathke's Cleft Cyst)
Hypothyroidism
Adrenal Insufficiency
Recurrent UTIs
Diverticular Disease
Recommendations:
CT findings noted.
Restart Zosyn 3.375 gm IV q.6 hours
For OR this AM.
Further recommendations regarding enteral vancomycin depending on OR findings.
Monitor white count and temperature curve.
Continue with supportive measures.
����������������������������������������������������������
Chief Complaint
-: Leukocytosis and Clinical Sepsis
Subjective / Review of Systems
Patient seen and examined. Chart reviewed. Overnight, patient with burgundy stool. Abdominal CTA reveals severe acute small bowel ischemia with pneumatosis. Patient evaluated by Vascular surgery and General surgery. Patient for OR this a.m.
Review of Systems: Abdominal Pain (mild)
Vital Signs / Physical Exam
Vital Signs
Vital Signs
Temp Pulse Resp BP Pulse Ox
97.5 F 90 14 121/67 100
07/16/25 11:02 07/16/25 11:25 07/16/25 11:25 07/16/25 11:25 07/16/25 11:22
Physical Exam
Constitutional: No Acute Distress, Comfortable, Chronically Ill and Non-toxic
Eyes: Sclera Anicteric
Cardiovascular: Regular Rate and S1/S2; Negative S3/S4
Pulmonary: Negative Wheezes or Rales
Gastrointestinal: Soft, Tender, Non Distended, Decreased Bowel Sounds, No Rebound and No Guarding
Extremities: Edema (Trace); Negative Erythema
Neurological: Awake
Psychological: Calm
Objective Data
Lab Data
Lab Results
07/16/25 06:33
Estimated Creat Clear 88 ml/min 07/16/25 06:33
Lactic Acid 1.9 mmol/L (0.7-2.0) 07/13/25 04:35
Total Bilirubin 0.5 mg/dl (0.2-1.3) 07/15/25 10:01
AST 15 U/L (14-36) 07/15/25 10:01
ALT < 10 U/L (0-35) 07/15/25 10:01
Alkaline Phosphatase 59 U/L (38-126) 07/15/25 10:01
Most recent labs reviewed.
Micro Results:
07/11/25 19:37 Blood Culture - Preliminary
Blood/Venous No Growth in 4 days- Final report to follow
07/11/25 19:37 Blood Culture - Preliminary
Blood/Venous No Growth in 4 days- Final report to follow
07/12/25 17:06 Blood Culture - Preliminary
Blood/Venous No Growth in 72 hours- Final report to follow
07/12/25 11:37 Salmonella/Shigella Culture - Final
Feces/Stool No Salmonella, Shigella, Aeromonas or Plesiomonas species
isolated.
Campylobacter Culture - Final
No Campylobacter species isolated.
- Final
NO YERSINIA SPECIES ISOLATED
Shiga Toxin Test - Final
No E. coli Shiga Toxin 1 or 2 detected.
Stool Leukocytes - Final
07/12/25 11:37 Cryptosporidium/Giardia - Final
Feces/Stool Negative for Cryptosporidium and/or Giardia Lamblia
antigens.
C. difficile GDH Antigen & Toxins - Final
C. difficile antigen positive, toxin negative.
Clostridium difficile present, but toxin not detected.
Patient may be a carrier, colonized with nontoxinogenic
strain or the level of toxin in sample is below detection
limits. This information should be used in conjunction with
the patient's clinical history.
- Final
Negative for Norovirus GI and GII.
Imaging:
07/16/2025 CT abdomen/pelvis angio: severe acute small bowel ischemia with pneumatosis is noted. Moderate mesenteric edema, and small volume ascites noted. There is complete occlusion of the superior mesenteric artery. Severe calcific
atherosclerotic plaque in the abdominal aorta and iliac arteries. Moderate diverticulosis in the descending colon. Please see full dictation for additional detail.
07/11/2025 CT abdomen/pelvis without contrast: evaluation is limited without intravenous or oral contrast. No gross focal intrinsic abnormality of the unopacified liver, spleen, pancreas, kidneys or adrenal glands. No significant perinephric
stranding. Small gallstones are seen within a borderline prominent gallbladder. No biliary tract dilatation. Evaluation of the intestinal tract is markedly limited, but no intestinal obstruction or free air is noted. Please see full dictation
for additional detail.
Care Review
Plan reviewed with: Physician (General Surgery) and Other (Clinical Pharmacist)
[2025-07-16] MEDS: LOPRESSOR IV (12:00)
[2025-07-16] MEDS: FIRVANQ PO (12:00)
[2025-07-16] MEDS: ZOSYN IV (12:32)
[2025-07-16 13:00] LABS: ACT-LR - POC 369 Seconds (116-155)
--- NOTE | 2025-07-16 14:19 | W.IMMPOSTOP ---
Surgical Immed Post Op Note
-
Primary Surgeon: Fara
Assisting Surgeon: None
Pre-op Diagnosis: Ischemic bowel
Post-op Diagnosis: Ischemic bowel
Procedure Performed: Diagnostic laparoscopy
Anesthesia Type: General
Specimen / Cultures: None
Estimated Blood Loss: 3 cc
Complications: None
Operative Findings:
1. Bowel run from LT to TI, no significant ischemia or necrosis, no bowel resection indicated at this time
2. See separate documentation for details on Vascular Surgery portion of procedure
--- NOTE | 2025-07-16 14:32 | W.SUR.POST ---
Surgical Immediate Post Op
Note
Pre Op Diagnosis: Acute mesenteric ischemia
Post Op Diagnosis: Acute mesenteric ischemia
Procedure Performed: Angiogram, angioplasty and SMA stent placement
Primary Surgeon: Arvin Beltran MD
Secondary Surgeons: Griffin Macias MD PhD
Anesthesia: General, per anesthesia
Estimated Blood Loss: 30 cc
Fluids: Per anesthesia
Drains/Shunts: None
Specimens/Cultures: None
Doppler/Duplex/Angio (Y/N): Yes, angio
Complications: None
Operative Findings: Left brachial artery cutdown and arterial access followed by aortogram and visualization of proximal SMA obstruction. Proximal SMA was stented with 3x iCast 6x22 mm stents with excellent distal flow on completion angiogram.
Primary repair of left brachial artery and closure. Abdominal portion of case per General Surgery notes.
--- NOTE | 2025-07-16 14:58 | CON.INTV ---
Consultation
Consultation Request
Date/Time Consultation Requested: 07/16/2025 - 141
Date/Time Consultation Performed: 07/16/2025 - 143
Requesting Provider: Dr. Boyer
Performing Provider: Dr. Hernández
Reason for Consultation: s/p SMA angioplasty and stent
Medical History
-
Chief Complaint: Nausea and vomiting
History of Present Illness:
69-year-old F with PMHx of HTN, HLD, DM type II, former tobacco use, valvular heart disease, central hypothyroidism, Hx of adrenal insufficiency, colovesical fistula and chronic lower extremity edema who p/w nausea, vomiting and diarrhea. Initial
WBC was 26.3 with Cr 1.9, and lactate 4.2. UA not suggestive of UTI. Blood Cx drawn. Given 2L in ER. ABx started with Zosyn, flagyl and rectal vanc (changed to PO vanc on 07/14). ID was following as well as GI. Heme was consulted for anemia.
CTA A/P on 07/16/2025 showed severe acute small bowel ischemia with complete SMA occlusion, and severe calcific atherosclerotic plaque in the abdominal aorta and iliac arteries. She received multiple PRBC transfusions on 07/16 due to anemia with GI
bleed. Due to persistent symptoms of nausea, vomiting and abd pain, pt was recommended to go to OR - on 07/16 she underwent angiogram with SMA angioplasty and stent placement. She was then TRX to ICU for further care and [facility]ou[facility] services
consulted for further management.
When I saw the pt she was drowsy, but arousable to tactile stimuli. HR 85, BP via A-line: 178/67, SpO2 99% on 2L/min NC, and BP via NIBP was 136/83. RR 14. She was in NAD.
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
of hyponatremia associated with adrenal insufficiency, Rathke's cleft cyst, history of UTI, colovesical fistula, history of perirectal abscess, chronic lower extremity edema
PSHx: Pilonidal cyst excision, sigmoidectomy and takedown of vesicle�colonic fistula (03/07/2023)
Past Medical History
Past Medical History: Other (Above as per HPI)
Past Surgical History: Other (Above as per HPI)
Social History
Tobacco: Former Smoker (He has quit many times in the past, smoked between 0.5-1 PPD starting at age 18, finally quit 03/2025)
Alcohol: Former (Drink 1 bottle of wine nightly until September 2024 hospitalization)
Drug: None
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
Family History
Family History: Cancer (Father: Lung cancer; mother: Hepatic cancer; Sister: Pancreatic, hepatic and thyroid cancers), Diabetes (Father and mother) and Other (Son: Drug addiction)
Allergies / Home Medications
Allergies
Allergy/AdvReac Type Severity Reaction Status Date / Time
No Known Allergies Allergy Verified 07/11/25 19:19
Home Medications
�Medication �Instructions �Recorded �Confirmed �Last Taken �Type
furosemide 20 mg tablet 20 mg PO DAILY Fluid 03/04/23 07/11/25 06/08/25 08:00 History
retention/Swelling
hydrocortisone 10 mg tablet 20 mg PO DAILY Anti-inflammatory 03/04/23 07/11/25 06/08/25 08:00 History
levothyroxine 75 mcg tablet 75 mcg PO DAILY Thyroid 09/17/24 07/11/25 06/08/25 08:00 History
(Synthroid)
lisinopril 5 mg tablet 10 mg PO DAILY Blood Pressure 05/04/25 07/11/25 06/08/25 08:00 History
pantoprazole 40 mg tablet,delayed 40 mg PO DAILY Gastrointestinal 05/04/25 07/11/25 05/26/25 08:00 History
release Issue
sennosides 8.6 mg tablet (senna) 8.6 mg PO BID PRN constipation 06/08/25 07/11/25 Unknown History
acetaminophen 325 mg tablet 650 mg (2 x 325 mg) PO Q4HPRN PRN 06/12/25 07/11/25 Unknown Rx
headache, pain, fever #0 tabs
apixaban 5 mg tablet 5 mg PO BID Arrhythmia #60 tabs 06/13/25 07/11/25 Unknown Rx
metoprolol succinate 25 mg 25 mg PO BID Heart 06/13/25 07/11/25 Unknown Rx
tablet,extended release 24 hr disease/condition #60 tabs
blood sugar diagnostic (Contour ##100 06/14/25 07/11/25 Unknown Rx
Next Test Strips)
clopidogrel 75 mg tablet 75 mg PO DAILY Blood clot 06/14/25 07/11/25 06/08/25 08:00 Rx
prevention/tx #0 tabs
dapagliflozin propanediol 10 mg 10 mg PO DAILY Diabetes #30 tabs 06/14/25 07/11/25 06/08/25 08:00 Rx
tablet (Farxiga)
lancets 21 gauge (Color Lancets) ##100 06/14/25 07/11/25 Unknown Rx
metformin 500 mg tablet 500 mg PO BID@0800,1700 Diabetes 06/14/25 07/11/25 06/08/25 08:00 Rx
#60 tabs
methenamine hippurate 1 gram tablet 1 g PO BID Urinary issue #30 tabs 06/14/25 07/11/25 06/08/25 08:00 Rx
multivitamin 1 tab PO DAILY Supplement #0 tabs 06/14/25 07/11/25 Unknown Rx
rosuvastatin 20 mg tablet 20 mg PO DAILY High cholesterol #0 06/14/25 07/11/25 06/07/25 18:00 Rx
tabs
Review of Systems
-
Unable to Obtain full review of systems at this time due to: Acuity
Vitals / Labs / Diagnostic Testing
Vital Signs
Temp Pulse Resp BP Pulse Ox
97.7 F 86 16 134/56 93
07/16/25 15:52 07/16/25 15:30 07/16/25 15:30 07/16/25 15:30 07/16/25 15:30
Lab Data
07/16/25 18:15
07/16/25 15:10
Laboratory Results
07/16/25 07/16/25
15:11 17:06
APTT Cancelled 44.5 H
Microbiology
07/12/25 17:06 Blood/Venous Blood Culture - Preliminary
No Growth in 4 days- Final report to follow
07/11/25 19:37 Blood/Venous Blood Culture - Preliminary
No Growth in 4 days- Final report to follow
07/11/25 19:37 Blood/Venous Blood Culture - Preliminary
No Growth in 4 days- Final report to follow
07/12/25 11:37 Feces/Stool Salmonella/Shigella Culture - Final
No Salmonella, Shigella, Aeromonas or Plesiomonas species
isolated.
07/12/25 11:37 Feces/Stool Campylobacter Culture - Final
No Campylobacter species isolated.
07/12/25 11:37 Feces/Stool - Final
NO YERSINIA SPECIES ISOLATED
07/12/25 11:37 Feces/Stool Shiga Toxin Test - Final
No E. coli Shiga Toxin 1 or 2 detected.
07/12/25 11:37 Feces/Stool Stool Leukocytes - Final
Diagnostic Testing:
Physical Exam
-
HEENT: Normocephalic and Anicteric
Cardiovascular: S1/S2, Regular Rhythm, Rub (n), Peripheral Edema (n) and Other (Normal rate)
Respiratory: Wheeze (n), Rales (faintly heard at left base), Rhonchi (n) and Non-Labored Respirations
GI: Soft, Non Distended, Non Tender and Normal Bowel Sounds
Neurology: Tremors (negative) and Other (drowsy)
Skin: Warm and Dry
General: Respiratory Distress (negative), Comfortable, Fever (negative) and Chills (negative)
Assessment
-
Assessment: 69-year-old F with PMHx of HTN, HLD, DM type II, former tobacco use, valvular heart disease, central hypothyroidism, Hx of adrenal insufficiency, colovesical fistula and chronic lower extremity edema who p/w nausea, vomiting and
diarrhea. Initial WBC was 26.3 with Cr 1.9, and lactate 4.2. UA not suggestive of UTI. Blood Cx drawn. Given 2L in ER. ABx started with Zosyn, flagyl and rectal vanc (changed to PO vanc on 07/14). ID was following as well as GI. Heme was
consulted for anemia. CTA A/P on 07/16/2025 showed severe acute small bowel ischemia with complete SMA occlusion, and severe calcific atherosclerotic plaque in the abdominal aorta and iliac arteries. She received multiple PRBC transfusions on 07/16
due to anemia with GI bleed. Due to persistent symptoms of nausea, vomiting and abd pain, pt was recommended to go to OR - on 07/16 she underwent angiogram with SMA angioplasty and stent placement. She was then TRX to ICU for further care and
[facility]ou[facility] services consulted for further management.
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
stenosis + AI, history of hyponatremia associated with adrenal insufficiency, Rathke's cleft cyst, history of UTI, colovesical fistula, history of perirectal abscess, chronic lower extremity edema
Impression:
#Acute mesenteric ischemia s/p intravascular lithotripsy to SMA + balloon angioplasty and stenting of proximal SMA (POD #0)
#A-fib with RVR - now rate controlled and in sinus rhythm
#C diff antigen (+) with negative toxin
#Diarrhea due to mesenteric ischemia
#Lactic acidosis
#Acute anemia requiring multiple PRBC transfusions on 07/16/2025
#Hx of severe aortic stenosis s/p bioprosthetic AVR and aortic root enlargement using bovine pericardial patch (OR date: 05/27/2025)
#Chronic HFpEF not in an acute exacerbation
#DM type II
Plan:
- Postoperative management as per surgery
- Pain control
- Continue ABx per ID
- Recent blood Cx drawn 07/11 + 07/12 show NGTD
- Will start heparin gtt per surgery
- Keep NPO until awakens more
- Maintain SpO2 >90-94% and wean down supplemental O2 flow rate as tolerated
- Maintain MAP>65
- Replete electrolytes with K>4, Mg>2
- Maintain euglycemia with goal BG 140-180; A1C: 5.7 on 07/12/2025
- Trend H/H and transfuse if needed to keep Hb>7g/dL; keep plt>50k (given recent post-operative status)
- prn nebulized bronchodilators - not currently bronchospastic
- Incentive spirometer encouraged 10x per hour for at least 4 hrs a day
- DVT ppx: starting heparin gtt
(Patient seen and evaluated on 07/16/2025) Critical care statement: A total of 38 minutes of critical care time was provided for this patient today. This includes management of unstable vital signs, evaluation of the patient at bedside, reviewing the
patient's pertinent medical records including radiographs, microbiology, laboratory evaluations, and discussion with primary team, consultants, pharmacy, nutrition, physical therapy, case management, charge nurse, critical care nursing, and
respiratory therapy.
--- NOTE | 2025-07-16 14:58 | CM ---
Following up on Patient. RN stated that she became very unstable from last night & this morning due to inner bleeding related to her GI area. Now, patient is in surgery, will be there for a long time, and will go to the ICU afterwards.
PLAN: Home VN vs. SNF...TBD
--- NOTE | 2025-07-16 15:07 | PTCARENOTE ---
Patient to be transferred to ICU room 3370 from PACU. Report given to Molly SANTANA.
[2025-07-16 15:26] LABS: Glucose - Point of Care 122 mg/dl (70-99)
--- NOTE | 2025-07-16 15:30 | W.PN.UPDATE ---
Addendum entered and electronically signed by Millicent Diamond MD 07/16/25 21:11:
Patient had hematochezia earlier this morning, CT angiogram done showed SEVERE ACUTE SMALL BOWEL ISCHEMIA with pneumatosis in small bowel loops in the left side of the midabdomen, moderate mesenteric edema, and small volume ascites. COMPLETE
OCCLUSION of the SUPERIOR MESENTERIC ARTERY. Severe calcific atherosclerotic plaque in the abdominal aorta and iliac arteries.
Patient had emergent ex lap for acute mesenteric ischemia, intravascular lithotripsy of SMA occlusion, balloon angioplasty and stenting of proximal SMA performed. No evidence of small bowel ischemia or necrosis noted
Postop monitored in the ICU
At this time no need for GI interventions. Will sign off, please call back if needed
Original Note:
Update Note
Progress Note Update
Attempted to see patient. Was off floor in OR. Discussed with RN.
--- NOTE | 2025-07-16 15:35 | OR.RPT ---
Operative Report
Operative Report
Date of Operation: 07/16/2025
Pre Op Diagnosis: Acute mesenteric ischemia
Post Op Diagnosis: Acute mesenteric ischemia
Procedure:
1. Intravascular lithotripsy to superior mesenteric artery calcified stenosis/occlusion using Shockwave Javelin
2. Balloon angioplasty and stenting of proximal superior mesenteric artery (3 overlapping 6 mm x 22 mm [employer] iCAST stents)
3. Cutdown exposure of left brachial artery for endovascular intervention (primary repair of brachial artery)
4. Diagnostic aortogram
5. Selective catheterization of superior mesenteric artery with mesenteric arteriogram
Surgeon: Arvin Beltran III, MD
Metal Gauge Maker: Griffin Macias MD PhD PGY-7
Anesthesia: Sedation with local
Fluoroscopy:
22.4 min
1678 mGy
274.64 gy.cm2
Complications: None
Estimated Blood Loss: 20 cc
History and Indications for Procedure: 69-year-old female with multiple medical comorbidities. She developed a symptom constellation consistent with acute mesenteric ischemia. CT angiogram of the abdomen and pelvis revealed calcified occlusion of
the proximal superior mesenteric artery. She was taken to the operating room for emergent revascularization.
Procedure in Detail: Anjelica Newman was correctly identified and placed supine on the operating table. After adequate induction of anesthesia the abdomen, pelvis, bilateral groins and proximal thighs as well as the left arm were prepped and draped in
the usual sterile fashion. A timeout was performed with the nursing and anesthesia staff confirming the patient's identity as well as the nature and laterality of the procedure.
I started by making an incision over the left brachial artery, proximal to the antecubital fossa. Electrocautery and sharp dissection were used to expose the brachial artery. Proximal and distal control was obtained with vessel loops. Under
direct visualization the brachial artery was punctured with a micropuncture needle and upsized to a 5 [place] sheath over a Bentson wire. Systemic heparin was administered. The Bentson wire was navigated retrograde through the proximal brachial
artery, axillary artery and subclavian artery. The Bentson wire was advanced easily into the aortic arch and went into the descending thoracic aorta with ease. The wire was advanced into the abdominal aorta. A pigtail catheter was then placed. A
diagnostic aortogram was then performed which demonstrated the following:
The aorta was peripherally calcified diffusely but patent.
The celiac artery was patent
The superior mesenteric artery was patent for a short stump but there was a focal occlusion thereafter. Reconstitution of the distal jejunal branches was identified but there was poor flow distally.
The renal arteries were patent bilaterally
The infrarenal aorta was calcified but patent
.
ENDOVASCULAR INTERVENTION: Systemic heparin was administered. Exchanged out for a 6 Fr 90 cm sheath over a [employer] wire. The radiopaque tip of the sheath was brought into position at the level of the superior mesenteric artery origin. Using a Nickolas
catheter and Glidewire we selected the superior mesenteric artery under roadmap guidance. The calcified SMA occlusion was crossed with a Glidewire and the [place] catheter. The wire and catheter were advanced into the distal superior mesenteric artery
and subtraction angio confirmed proper position in the true lumen. Exchanged out for a 0.014 wire.
Due to the calcified nature of the superior mesenteric artery disease and in an effort to successfully cross the lesion, modify the calcium and achieve luminal gain with endovascular intervention I elected to proceed with intravascular lithotripsy
with a Shockwave Javelin catheter. The Javelin catheter was brought into position under radiographic guidance over the 0.014 wire. The Javelin catheter was advanced through the calcified superior mesenteric artery occlusion while simultaneously
delivering lithotripsy pulses. 120 pulses were delivered. Subsequent arteriogram demonstrated significant improvement in luminal diameter compared to pretreatment. I followed this with overlapping balloon angioplasty and stent placement. 3
overlapping 6 mm x 22 mm iCAST stents were individually positioned and deployed across the treated superior mesenteric artery segment. Subsequent arteriogram demonstrated an excellent technical result with a widely patent superior mesenteric
artery, no residual stenosis identified and brisk filling of the distal SMA and branches.
Satisfied with this technical result we concluded the endovascular portion the procedure. The catheter and sheath were disengaged from the proximal superior mesenteric artery. The catheter was pulled from the sheath. This sheath was removed from
the brachial artery. There was brisk pulsatile bleeding from the proximal brachial artery. Backbleeding was identified from the distal brachial artery. The vessel loops were secured. The artery puncture site was repaired primarily with
interrupted 6-0 Prolene suture. The vessel loops were released after primary repair. There was an excellent pulse that was easily palpable in the brachial artery proximal and distal to the suture line. The patient had a palpable radial pulse at
the left wrist.
The suture line was closely inspected for hemostasis which was achieved. Hemostasis was achieved in the wound bed. The wound was irrigated with saline solution. The wound was then closed in layers and sterile dressings were applied.
At this point I turned the case over to Dr. Chaudhari and his operative note will be dictated separately
Attestation: I was present and responsible for the entire procedure.
Signed:
Arvin Beltran III, MD
Vascular Surgery
[facility]
[2025-07-16 15:36] LABS: Hematocrit 33.6 % (37.0-47.0); Hemoglobin 11.4 g/dL (12.0-16.0); Mean Corp Hgb Conc. 33.9 g/dL (33.0-37.0); Mean Corpuscular Volume 87.0 fL (81.0-99.0); Platelet Count 233 10^3/uL (130-400); Red Cell Dist. Width 17.5 % (11.5-14.5)
[2025-07-16 15:39] LABS: ALT (SGPT) < 10 U/L (0-35); AST (SGOT) 15 U/L (14-36); Albumin 2.7 g/dl (3.5-5.0); Alkaline Phosphatase 59 U/L (38-126); Blood Urea Nitrogen 6 mg/dl (7-17); Calcium 8.4 mg/dl (8.4-10.2); Carbon Dioxide 22 mmol/L (22-30); Chloride 111 mmol/L (98-107); Estimated Creatinine Clearance 75 ml/min; Glucose 134 mg/dl (70-99); Potassium 3.4 mmol/L (3.5-5.1); Sodium 137 mmol/L (135-145); Total Protein 5.3 g/dl (6.3-8.2); eGFR > 60.00
--- NOTE | 2025-07-16 15:51 | PTCARENOTE ---
Received patient from PACU, Arousable to voice, A&Ox2, denied pain throughout, on RA, NSR, Right Arm BP cuff normotensive, Left Radial Art BP hypertensive, made arbitrator aware, RIJ Cordis, Right Nare NGT to Low Continuous suction, no output,
absent bowel sounds at this time, NPO, Beltran in place.
[2025-07-16] MEDS: KCL 160 MEQ IV (17:13)
[2025-07-16] MEDS: LEVAQUIN 100 IV (17:14)
[2025-07-16] MEDS: POTASSIUM PHOSPHATE 259.0909 MEQ IV (17:15)
[2025-07-16 17:26] LABS: APTT 44.5 Sec (23.4-35.0)
[2025-07-16] MEDS: HEPARIN 25000 UNITS/250 ML IV (17:44)
[2025-07-16] MEDS: LOPRESSOR 5 MG IV ×2 (17:59→23:52)
[2025-07-16] MEDS: ZOSYN 50 IV ×2 (18:11→23:52)
--- NOTE | 2025-07-16 20:00 | PTCARENOTE ---
Resumed care of pt laying in bed sleeping. Pt easily arousable to voice, pt drowsy, but able to verbalize needs and follow commands. HR in the 70's in NSR with BBB and prolonged QT on the monitor. POX 98% on 2 lO2 NC. Lungs dec/ shallow. Right nare
NGT at 58cm to continuous suction at 80mmhg. Hypo bowel, round obese abd. 4 abd lap sites with surg glue open to air. Pt reports pain at tolerable level. Beltran cath in place for critical I/O. LUE surgical site open to air with surgical adhesive,
ecchymosis noted. LUE neurovascular checks as documented. Left Helen in place. Left thumb int capped. B/L knee high seq in place. Right IJ cordis in place infusing Heparin gtt 1400 units/hr, NSS@75ml/hr. Sacral foam in place. Heels elevated on
pillows. Pt positioned per comfort. Pt reports pain at tolerable level at this time. Will continue to monitor.
[2025-07-16] MEDS: PLAVIX 75 MG TUBE (20:30)
[2025-07-16] MEDS: FIRVANQ 125 MG TUBE ×2 (20:33→23:52)
[2025-07-16 23:52] LABS: Glucose - Point of Care 116 mg/dl (70-99)
[2025-07-16] MEDS: NOVOLOG FLEXPEN-LOW RESISTANCE SC (23:53)
[2025-07-17] VITALS (19 sets, daily range): BP systolic 112–175; BP diastolic 47–116; BMI 31.2
--- NOTE | 2025-07-17 | PTCARENOTE ---
Pt resting comfortably. Continues to deny need for pain medication. Pt asking for drink, NPO status explained. Oral care provided. Pt repositioned per comfort. Vital signs stable. No other changes in assessment noted at this time. Will continue to
monitor.
[2025-07-17 00:16] LABS: APTT 184.8 Sec (23.4-35.0)
[2025-07-17 00:20] LABS: Blood Urea Nitrogen 7 mg/dl (7-17); Calcium 8.0 mg/dl (8.4-10.2); Carbon Dioxide 22 mmol/L (22-30); Chloride 114 mmol/L (98-107); Estimated Creatinine Clearance 88 ml/min; Glucose 128 mg/dl (70-99); Magnesium 1.8 mg/dl (1.6-2.3); Potassium 3.9 mmol/L (3.5-5.1); Sodium 141 mmol/L (135-145); eGFR > 60.00
[2025-07-17] MEDS: FIRVANQ 125 MG TUBE ×4 (05:38→23:51)
[2025-07-17] MEDS: LOPRESSOR 5 MG IV ×4 (05:38→23:51)
[2025-07-17] MEDS: ZOSYN 50 IV ×4 (05:38→23:51)
[2025-07-17 05:39] LABS: Hematocrit 32.3 % (37.0-47.0); Hemoglobin 11.0 g/dL (12.0-16.0); Mean Corp Hgb Conc. 34.1 g/dL (33.0-37.0); Mean Corpuscular Volume 88.3 fL (81.0-99.0); Platelet Count 208 10^3/uL (130-400); Red Cell Dist. Width 18.6 % (11.5-14.5)
[2025-07-17] MEDS: NOVOLOG FLEXPEN-LOW RESISTANCE SC ×4 (05:45→23:52)
[2025-07-17 05:56] LABS: Glucose - Point of Care 108 mg/dl (70-99)
[2025-07-17 06:14] LABS: Blood Urea Nitrogen 7 mg/dl (7-17); Calcium 7.7 mg/dl (8.4-10.2); Carbon Dioxide 19 mmol/L (22-30); Chloride 116 mmol/L (98-107); Estimated Creatinine Clearance 89 ml/min; Glucose 103 mg/dl (70-99); Magnesium 1.7 mg/dl (1.6-2.3); Potassium 3.7 mmol/L (3.5-5.1); Sodium 142 mmol/L (135-145); eGFR > 60.00
--- NOTE | 2025-07-17 07:30 | PTCARENOTE ---
Received patient A&Ox3, denied pain throughout, on NC 2L, NSR w/ RBB, Left Radial Art Line, RIJ Cordis, Right Nare NGT @58cm to Low Continuous suction, bile color output, incontinent w/ burgundy liquid stool, applied external fecal pouch, Beltran in
place.
[2025-07-17 07:58] LABS: INR 1.62; PT 19.5 Sec (11.4-14.6)
[2025-07-17 08:00] LABS: APTT 88.7 Sec (23.4-35.0)
--- NOTE | 2025-07-17 08:17 | W.PN.INTV ---
Today's Communication / Plan
Recommendations
Postoperative management as per surgery
Keep NPO
Pain control
Continue heparin drip
Antibiotics per ID
Plavix + high intensity statin
Continue hydrocortisone given history of adrenal insufficiency
Vascular access team to insert either peripheral IV vs midline/PICC, then R�IJ cordis can be removed
Remove A-line
Patient is stable for downgrade out of ICU to telemetry. Once patient is downgraded, Plaster Patternmaker/Pulmonary service will sign off. Thank you for allowing us to be involved in the care of this patient and please call back with any questions or
concerns.
Assessment
-
Assessment: 69-year-old F with PMHx of HTN, HLD, DM type II, former tobacco use, valvular heart disease, central hypothyroidism, Hx of adrenal insufficiency, colovesical fistula and chronic lower extremity edema who p/w nausea, vomiting and
diarrhea. Initial WBC was 26.3 with Cr 1.9, and lactate 4.2. UA not suggestive of UTI. Blood Cx drawn. Given 2L in ER. ABx started with Zosyn, flagyl and rectal vanc (changed to PO vanc on 07/14). ID was following as well as GI. Heme was
consulted for anemia. CTA A/P on 07/16/2025 showed severe acute small bowel ischemia with complete SMA occlusion, and severe calcific atherosclerotic plaque in the abdominal aorta and iliac arteries. She received multiple PRBC transfusions on 07/16
due to anemia with GI bleed. Due to persistent symptoms of nausea, vomiting and abd pain, pt was recommended to go to OR - on 07/16 she underwent angiogram with SMA angioplasty and stent placement. She was then TRX to ICU for further care and
Plaster Patternmaker services consulted for further management.
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
stenosis + AI, history of hyponatremia associated with adrenal insufficiency, Rathke's cleft cyst, history of UTI, colovesical fistula, history of perirectal abscess, chronic lower extremity edema
Impression:
#Acute mesenteric ischemia s/p intravascular lithotripsy to SMA + balloon angioplasty and stenting of proximal SMA (POD #1)
#A-fib with RVR - now rate controlled and in sinus rhythm
#C diff antigen (+) with negative toxin
#Diarrhea due to mesenteric ischemia
#Lactic acidosis
#Acute anemia requiring multiple PRBC transfusions on 07/16/2025
#Hx of severe aortic stenosis s/p bioprosthetic AVR and aortic root enlargement using bovine pericardial patch (OR date: 05/27/2025)
#Chronic HFpEF not in an acute exacerbation
#DM type II
Plan:
- Postoperative management as per surgery
- Pain control
- Continue ABx per ID � currently on Zosyn and PO vanc
- Recent blood Cx drawn 07/11 + 07/12 show NGTD
- Continue heparin gtt
- Keep NPO given high risk of ileus, as per surgery
- Maintain SpO2 >90-94% and wean down supplemental O2 flow rate as tolerated
- Maintain MAP>65
- Replete electrolytes with K>4, Mg>2
- Maintain euglycemia with goal BG 140-180; A1C: 5.7 on 07/12/2025
- Trend H/H and transfuse if needed to keep Hb>7g/dL; keep plt>50k (given recent post-operative status)
- prn nebulized bronchodilators - not currently bronchospastic
- Incentive spirometer encouraged 10x per hour for at least 4 hrs a day
- DVT ppx: heparin gtt
Patient is stable for downgrade out of ICU to telemetry. Need to first obtain better IV access so that R�IJ cordis can be removed. Vascular access team will come to bedside and after adequate access obtained then Cordis can be removed. A-line
will also need to be removed prior to downgrade. Once patient is downgraded, Plaster Patternmaker/Pulmonary service will sign off. Thank you for allowing us to be involved in the care of this patient and please call back with any questions or concerns.
Total time spent today was 59 minutes for this encounter. Time includes reviewing laboratory test/imaging results, reviewing pertinent medical records, obtaining and reviewing medical history, performing an appropriate exam, ordering medications,
tests and procedures. Time also includes documentation of this encounter, coordinating patient care and communicating with other healthcare professionals. Total time does not include separately billed tests performed on this date of service.
Subjective Dataa
Subjective Data
Date of Service:
Date of Service: July 17, 2025
Chief Complaint: Plaster Patternmaker Follow Up
Subjective:
Patient seen this morning. She feels well, denying abdominal pain or nausea. Currently saturating 97% on 2 L/min nasal cannula, heart rate 67 and BP 106/42 via A-line. Patient's , Gabriele, present at bedside and all questions were answered.
Review of Systems
General: Other (Negative unless mentioned above)
Objective Data
Data Reviewed
Vital Signs / I&O / Oxygen:
Vital Signs
Temp Pulse Resp BP Pulse Ox
99.1 F 83 12 160/80 99
07/17/25 07:28 07/17/25 05:38 07/17/25 05:30 07/17/25 05:38 07/17/25 05:30
Intake and Output
07/16/25 07/17/25 07/18/25
06:59 06:59 06:59
Intake Total 2250 / 2250 2629.5 / 2629.5
Output Total 3100 / 3100 1940 / 1940
Balance -850 / -850 689.5 / 689.5
SaO2 99
Nasal Cannula flow liters per 2
minute
Physical Exam
General: Respiratory Distress (negative), Comfortable, Chills (negative) and Sweats (negative)
HEENT: Normocephalic and Anicteric
Cardiovascular: S1-S2 and Peripheral Edema (+1 lower extremity pitting edema bilaterally)
Respiratory: Wheeze (negative), Crackles (negative), Rhonchi (negative) and Non-Labored Respirations
GI: Soft, Non Distended, Non Tender and Normal Bowel Sounds
Neurology: AO x 3 and Tremors (negative)
Skin: Warm, Dry, Cyanosis (negative) and Jaundice (negative)
Labs/Micro/Reports
Lab Data
07/17/25 04:54
07/17/25 04:54
Laboratory Results
07/16/25 07/16/25 07/16/25
15:11 17:06 23:46
PT
INR
APTT Cancelled 44.5 H 184.8 H*
07/17/25
07:20
PT 19.5 H
INR 1.62
APTT 88.7 H
Microbiology
07/11/25 19:37 Blood/Venous Blood Culture - Final
No Growth - Final Report
07/11/25 19:37 Blood/Venous Blood Culture - Final
No Growth - Final Report
07/12/25 17:06 Blood/Venous Blood Culture - Preliminary
No Growth in 4 days- Final report to follow
07/12/25 11:37 Feces/Stool Salmonella/Shigella Culture - Final
No Salmonella, Shigella, Aeromonas or Plesiomonas species
isolated.
07/12/25 11:37 Feces/Stool Campylobacter Culture - Final
No Campylobacter species isolated.
07/12/25 11:37 Feces/Stool - Final
NO YERSINIA SPECIES ISOLATED
07/12/25 11:37 Feces/Stool Shiga Toxin Test - Final
No E. coli Shiga Toxin 1 or 2 detected.
07/12/25 11:37 Feces/Stool Stool Leukocytes - Final
--- NOTE | 2025-07-17 08:44 | W.PN.ID1 ---
Date of Service
Date of Service: July 17, 2025
Today's Communication
c/w Zosyn 3.375 gm IV q.6 hours and oral vancomycin
Assessment / Plan
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
A-fib with RVR.
GI bleed
Marked leukocytosis
C. difficile antigen (+) / toxin (-)
Diarrhea
Lactic acidosis
Aortic Stenosis
Hypertension
HFpEF
Paroxysmal Atrial Fibrillation
DM-II
Panhypopituitarism (Rathke's Cleft Cyst)
Hypothyroidism
Adrenal Insufficiency
Recurrent UTIs
Diverticular Disease
Recommendations:
CT findings noted. S/p revascularization for acute mesenteric ischemia
c/w Zosyn 3.375 gm IV q.6 hours and oral vancomycin
Monitor white count and temperature curve.
Continue with supportive measures.
����������������������������������������������������������
Chief Complaint
-: Leukocytosis and Clinical Sepsis
Subjective / Review of Systems
afebrile
bp stable
'I dont like to be touched'
Vital Signs / Physical Exam
Vital Signs
Vital Signs
Temp Pulse Resp BP Pulse Ox
99.1 F 83 12 160/80 99
07/17/25 07:28 07/17/25 05:38 07/17/25 05:30 07/17/25 05:38 07/17/25 05:30
Physical Exam
Constitutional: No Acute Distress and Chronically Ill
Cardiovascular: Regular Rate and S1/S2; Negative Murmur or Rub
Pulmonary: Clear and Symmetric; Negative Wheezes or Rales
Gastrointestinal: Soft, Non Tender, Non Distended and Normal Bowel Sounds
Skin: Warm and Dry; Negative Rash or Jaundice
Objective Data
Lab Data
Lab Results
07/17/25 04:54
07/17/25 04:54
PT 19.5 Sec (11.4-14.6) H 07/17/25 07:20
INR 1.62 07/17/25 07:20
APTT 88.7 Sec (23.4-35.0) H 07/17/25 07:20
Estimated Creat Clear 89 ml/min 07/17/25 04:54
Lactic Acid 1.9 mmol/L (0.7-2.0) 07/13/25 04:35
Total Bilirubin 1.0 mg/dl (0.2-1.3) 07/16/25 15:10
AST 15 U/L (14-36) 07/16/25 15:10
ALT < 10 U/L (0-35) 07/16/25 15:10
Alkaline Phosphatase 59 U/L (38-126) 07/16/25 15:10
Most recent labs reviewed.
Micro Results:
07/11/25 19:37 Blood Culture - Final
Blood/Venous No Growth - Final Report
07/11/25 19:37 Blood Culture - Final
Blood/Venous No Growth - Final Report
07/12/25 17:06 Blood Culture - Preliminary
Blood/Venous No Growth in 4 days- Final report to follow
07/12/25 11:37 Salmonella/Shigella Culture - Final
Feces/Stool No Salmonella, Shigella, Aeromonas or Plesiomonas species
isolated.
Campylobacter Culture - Final
No Campylobacter species isolated.
- Final
NO YERSINIA SPECIES ISOLATED
Shiga Toxin Test - Final
No E. coli Shiga Toxin 1 or 2 detected.
Stool Leukocytes - Final
07/12/25 11:37 Cryptosporidium/Giardia - Final
Feces/Stool Negative for Cryptosporidium and/or Giardia Lamblia
antigens.
C. difficile GDH Antigen & Toxins - Final
C. difficile antigen positive, toxin negative.
Clostridium difficile present, but toxin not detected.
Patient may be a carrier, colonized with nontoxinogenic
strain or the level of toxin in sample is below detection
limits. This information should be used in conjunction with
the patient's clinical history.
- Final
Negative for Norovirus GI and GII.
Imaging:
07/16/2025 CT abdomen/pelvis angio: severe acute small bowel ischemia with pneumatosis is noted. Moderate mesenteric edema, and small volume ascites noted. There is complete occlusion of the superior mesenteric artery. Severe calcific
atherosclerotic plaque in the abdominal aorta and iliac arteries. Moderate diverticulosis in the descending colon. Please see full dictation for additional detail.
07/11/2025 CT abdomen/pelvis without contrast: evaluation is limited without intravenous or oral contrast. No gross focal intrinsic abnormality of the unopacified liver, spleen, pancreas, kidneys or adrenal glands. No significant perinephric
stranding. Small gallstones are seen within a borderline prominent gallbladder. No biliary tract dilatation. Evaluation of the intestinal tract is markedly limited, but no intestinal obstruction or free air is noted. Please see full dictation
for additional detail.
[2025-07-17] MEDS: PLAVIX 75 MG TUBE (09:00)
[2025-07-17] MEDS: PROTONIX IV 40 MG IV ×2 (09:00→20:13)
[2025-07-17] MEDS: SOLU-CORTEF 50 MG IV (09:00)
[2025-07-17] MEDS: NSS (PRESERVATIVE FREE) 10 ML IV ×2 (09:00→20:18)
--- NOTE | 2025-07-17 09:06 | W.PN.HOSP.TC ---
Today's Communication/Plan
-
see bold
Assessment / Plan
Assessment / Plan
HPI: 69y F with PMH significant for s/p BioAVR, post-op CVA and subsequent hospitalization for CHF who presents to ED complaining of N/V/D since last PM.
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
- Urgent consult placed to vascular surgery and general surgery
- Last dose of Eliquis and Plavix 07/15
- Appreciate vascular surgery input, s/p emergent intravascular lithotripsy to SMA + balloon angioplasty and stenting of proximal SMA 07/16
- Continue IV heparin drip, Plavix
#Hemorrhagic shock
- Resolved
Sepsis
Acute infectious gastroenteritis, unknown organism
Lactic acidosis
- Appreciate GI input
- Lactic acidosis resolved, trend fever and white count
- Stool studies positive for C. difficile antigen, negative for toxin
- Appreciate ID input, continue IV Zosyn, oral vancomycin
Worsening anemia, due to sepsis, acute blood loss, and anemia of chronic disease
- Appreciate hematology input, due to sepsis, acute blood loss, mild hemolysis, and anemia of chronic disease
- Status post 4 units packed red blood cells, 2 units of FFP on 07/16
- Trend hemoglobin, transfuse as needed
Acute toxic metabolic encephalopathy
- Due to sepsis, resolved, provide supportive care
Coffee-ground emesis
- Started on Protonix 40 mg IV twice daily
- Cleared by GI to resume Eliquis and plavix 07/14
Paroxysmal Atrial Fibrillation with rapid ventricular response
- Due to sepsis. Hold Eliquis, continue IV heparin drip
- Appreciate cardiology input, converted to normal sinus rhythm s/p diltiazem drip
- Change oral metoprolol to IV metoprolol with hold parameters
Aortic Stenosis s/p BioAVR
Chronic HFpEF
- Stable. No evidence of volume overload on exam.
- Hold Farxiga / Lasix acutely.
S/p CVA
- CVA POD #1 after AVR. Transferred to [place] for TCAR.
- No new neurologic deficits.
- Continue Plavix
PANTERA
- Likely due to dehydration +/- Bactrim use / med effect
- Creatinine normal today, down from 1.9 upon admission
- Trend creatinine, no nephrotoxic drugs/NSAIDs
Hypophosphatemia
Hypomagnesemia
Hypokalemia
- Replete as needed
Prolonged QTc
- Avoid Zofran and other QTc prolonging agents
- Continue Tigan IM as needed
Panhypopituitarism
Adrenal Insufficiency
Hypothyroidism
- Patient maintained on hydrocortisone daily.
- Given acute illness, hypotension, etc
- Change back po hydrocortisone
- Continue current T4 replacement
DM-II
- Hemoglobin A1c 5.7. Hold PO metformin acutely.
- Follow glucose and cover with SSI as needed - especially on higher dose steroids.
Frequent UTIs
- UA not suggestive of UTI at present.
- Just completed 3 day course of Bactrim on .
- Continue methenamine for prevention and monitor for any symptoms.
DVT Prophylaxis: IV heparin drip
Code Status: Full
Updated at bedside 07/17
Total time spent to see the patient on the floor, examine the patient, review data and lab results, discuss treatment plan with patient, nursing staff around 50 minutes.
Physical Exam
General: No acute distress
HEENT: Normocephalic, Atraumatic, EOMI, MMM
Respiratory: Clear to Auscultation bilaterally
Cardiac: Normal S1/S2, RRR
GI: Soft, mildly distended, mild tenderness diffusely
Incisions clean/dry/intact
Extremities: No Clubbing, Cyanosis, or Edema
Neuro: Confusion resolved
Anticipated Discharge: > 48 hours
Subjective/Interval History
-
Date of Service: July 17, 2025
Patient complains of abdominal pain. She complains of being thirsty. Denies chest pain, denies shortness of breath. No fever, no vomiting.
Objective Data
-
Labs:
Laboratory Results
07/16/25 07/17/25 07/17/25
23:46 04:54 07:20
WBC 14.8 H
Hgb 11.0 L
Hct 32.3 L
Plt Count 208
PT 19.5 H
INR 1.62
APTT 184.8 H* 88.7 H
Sodium 141 142
Potassium 3.9 3.7
Chloride 114 H 116 H
Carbon Dioxide 22 19 L
BUN 7 7
Creatinine 0.6 0.6
Glucose 128 H 103 H
Calcium 8.0 L 7.7 L
07/17/25
07:20
WBC
Hgb
Hct
Plt Count
PT
INR
APTT Pending
Sodium
Potassium
Chloride
Carbon Dioxide
BUN
Creatinine
Glucose
Calcium
Vital Signs:
Vital Signs
Temp Pulse Resp BP Pulse Ox
99.1 F 83 12 160/80 99
07/17/25 07:28 07/17/25 05:38 07/17/25 05:30 07/17/25 05:38 07/17/25 05:30
I&O
07/16/25 07/17/25 07/18/25
06:59 06:59 06:59
Intake Total 2250 / 2250 2629.5 / 2629.5
Output Total 3100 / 3100 1939 / 194
Balance -850 / -850 689.5 / 689.5
[2025-07-17] MEDS: NSS 1000 IV ×2 (09:20→22:34)
[2025-07-17] MEDS: HEPARIN 25000 UNITS/250 ML IV (10:47)
--- NOTE | 2025-07-17 11:00 | W.PN.GS2 ---
Today's Communication / Plan
-
`
Assessment / Plan
-
Assessment: 69-year-old female POD #1 status post diagnostic laparoscopy with bowel edema but no advanced/irreversible ischemia
POD #1 status post angiogram, angioplasty and SMA stent placement
AFVSS
Expected loose bowel movements but no clinical signs suggestive of bowel ischemia post revascularization
Plan: okay for ice chips with sips around NG tube sparingly for comfort
Maintain NG tube decompression today as high risk for ileus
Continue maintenance IV fluid
Anticoagulation as per vascular recommendations
Subjective Data
-
Date of Service: July 17, 2025
Patient seen and examined. at bedside.
Very appreciative of care.
Preoperative abdominal pain has essentially completely resolved
Loose liquid bowel movements
No nausea, thirsty and requesting liquids
Objective Data
-
Intake and Output
07/16/25 07/17/25 07/18/25
06:59 06:59 06:59
Intake Total 2250 / 2250 2629.5 / 2629.5
Output Total 3100 / 3100 194 / 194
Balance -850 / -850 689.5 / 689.5
Intake:
Oral fluids 720 / 720 0 / 0
IV fluids (Total) 675 / 675 2086 / 2086
Cordis 130 / 130
Heparin 132 / 132
Nss 1,000 ml @ 75 mls/hr IV . 675 / 675 750 / 750
[id number] TAMMIE Rx#:[id number]
normosol 1075 / 1075
IV piggybacks 425 / 425 542.5 / 542.5
Amount instilled into GI Tube ( 30 / 30
Total)
[place] Sump 30 / 30
Fecal management system 400 / 400
irrigation (mL)
Rectum 400 / 400
Output:
Liquid stool amount 1999
Rectum 1999
Gastrointestinal tube output ( 0 / 0
Total)
[place] Sump 0 / 0
Urine, Beltran 1440 / 1440
Urine, Voided 1100 / 1100 500 / 500
Other:
Number of approximated MODERATE 1
amounts of urine
How many times incontinent 1 1
MODERATE amount urine
How many times incontinent 1
SATURATED amount urine
Number of unmeasured liquid
stools
Rectum 2
Vital Signs
Temp Pulse Resp BP Pulse Ox
99.1 F 83 12 160/80 99
07/17/25 07:28 07/17/25 05:38 07/17/25 05:30 07/17/25 05:38 07/17/25 05:30
Lab Results
07/17/25 04:54
07/17/25 04:54
Calcium 7.7 mg/dl (8.4-10.2) L 07/17/25 04:54
Phosphorus 4.7 mg/dl (2.5-4.5) H 07/17/25 04:54
Magnesium 1.7 mg/dl (1.6-2.3) 07/17/25 04:54
Total Bilirubin 1.0 mg/dl (0.2-1.3) 07/16/25 15:10
Direct Bilirubin 0.7 mg/dl (0.0-0.4) H 07/16/25 15:10
AST 15 U/L (14-36) 07/16/25 15:10
ALT < 10 U/L (0-35) 07/16/25 15:10
Alkaline Phosphatase 59 U/L (38-126) 07/16/25 15:10
Total Protein 5.3 g/dl (6.3-8.2) L 07/16/25 15:10
Albumin 2.7 g/dl (3.5-5.0) L 07/16/25 15:10
Physical Exam
-
NAD AAO x 3
ABD: soft, minimal tenderness at laparoscopic sites only. No rebound, no rigidity, no guarding. No pain out of proportion to examination.
--- NOTE | 2025-07-17 12:00 | PTCARENOTE ---
Addendum entered by Jericho Mehta RN (Amy) 07/17/25 19:38:
Per surgery team, patient is allowed to have sparing ice chips and ice water oral swabs.
Original Note:
Reassessed the patient, no new changes from previous assessments.
[2025-07-17 12:32] LABS: Glucose - Point of Care 101 mg/dl (70-99)
--- NOTE | 2025-07-17 13:20 | W.PN.CD ---
Today's Communication / Plan
-
Back in SR
Resume AC and plavix when OK from VS
currently on heparin gtt
Impression / Plan
-
Impression
69 yo F (known to Dr. Bacon, her primary Interventional Radiology Technologist) with s/p BioAVR and aortic enlargement (05/27/[address] Ponce), post-op CVA , TCAR done at [facility] and subsequent hospitalization for CHF (06/08/2025), paroxysmal A-fib (on Eliquis),
hypertension, hyperlipidemia, panhypopituitarism, diabetes type 2, and HFpEF who presents to ED complaining of N/V/D. She was septic and in PANTERA at presentation. Cardiology was consulted for A-fib with RVR.
Plan
#Sepsis/Lactic acidosis-- found to have SMA occlusion with severe acute small bowel ischemia
-s/p SMA angioplasty and stenting and ex-lap
- per VS and GS
#A-fib with RVR now [facility] in SR 07/17
Patient was diagnosed in A-fib in June during her admission for acute heart failure exacerbation. Patient was briefly on amiodarone but was off of it because of her prolonged QT (she was on ciprofloxacin for her UTI).
-in SR
-Resume Eliquis and plavix when OK from VS
#Anemia:
-Transfuse blood as needed.
-Continue to hold Eliquis and clopidogrel, given acute bleed.
Her Sheldon Vasc score�8
Continue telemetry monitoring.
#CVA s/p TCAR
- Resume plavix when OK from VS
#AV stenosis s/p AVR, aortic enlargement
Stable
#HFpEF
Stable. No evidence of volume overload on exam.
Continue to hold Farxiga / Lasix
#PANTERA
Resolved
Monitor lytes, renal function
-Replete potassium aggressively (keep K greater than 4.0).
Subjective:
thirsty
Physical Exam
Vital Signs/Labs
Vital Signs
Temp Pulse Resp BP Pulse Ox
99.5 F 93 12 159/66 99
07/17/25 11:12 07/17/25 12:32 07/17/25 05:30 07/17/25 12:32 07/17/25 05:30
07/16/25 07/17/25 07/18/25
06:59 06:59 06:59
Actual Weight 175 lb 8 oz 181 lb 7.047 oz
07/17/25 04:54
07/17/25 04:54
PT 19.5 Sec (11.4-14.6) H 07/17/25 07:20
INR 1.62 07/17/25 07:20
APTT 88.7 Sec (23.4-35.0) H 07/17/25 07:20
Magnesium 1.7 mg/dl (1.6-2.3) 07/17/25 04:54
TSH Cancelled 07/15/25 13:11
Physical Exam
Constitutional: No acute distress and Comfortable
EENT: Anicteric
Cardiovascular: Rhythm & rate is regular
Respiratory: Respiratory effort normal
Neuro/Psych: Alert and Oriented
Data Reviewed
-
Date of Service: July 17, 2025
Medical Decision Making: Reviewed Test Results
EKG: Tracing Personally Visualized and interpreted (sr)
Echo: Report Reviewed by me
Labs: Labs Reviewed by me
[2025-07-17 13:53] LABS: APTT 103.4 Sec (23.4-35.0)
--- NOTE | 2025-07-17 14:54 | W.PN.VS ---
Today's Communication / Plan
-
See plan below for today 07/17/2025.
Assessment/Plan
-
Postoperative day #1 status post left brachial cutdown, SMA angioplasty/stent.
� Antiplatelet therapy, continue Plavix.
� Okay for anticoagulation. Mild swelling at left brachial cutdown site, but no major hematoma. Should be okay to resume oral anticoagulation whenever oral feeds have started again.
� Will defer to general surgery regarding NG tube/management of diet.
� Will sign off. Please call with questions. Can follow-up in the office in 2 weeks will have appointment outlined on discharge.
-
Total Time Spent with Patient (in minutes): 10
Subjective Data
-
Date of Service: July 17, 2025
Feeling better overall. She notes that her abdominal pain has significantly improved after stent placement.
Objective Data
-
Vital Signs
Temp Pulse Resp BP Pulse Ox
99.5 F 68 13 159/66 98
07/17/25 11:12 07/17/25 13:00 07/17/25 13:00 07/17/25 12:32 07/17/25 13:00
Intake and Output
07/16/25 07/17/25 07/18/25
06:59 06:59 06:59
Intake Total 2250 / 2250 2726.5 / 2823.5 916 / 916
Output Total 3100 / 3100 2029 / 2115 430 / 430
Balance -850 / -850 696.5 / 708.5 486 / 486
Intake:
Oral fluids 720 / 720 0 / 0
IV fluids (Total) 675 / 675 2184 / 2281 776 / 776
Cordis 140 / 150 80 / 80
Heparin 144 / 156 96 / 96
Nss 1,000 ml @ 75 mls/hr IV . 675 / 675 825 / 900 600 / 600
[id number] TAMMIE Rx#:[id number]
normosol 1075 / 1075
IV piggybacks 425 / 425 542.5 / 542.5 50 / 50
Amount instilled into GI Tube (
Total)
[place] Sump
Fecal management system 400 / 400
irrigation (mL)
Rectum 400 / 400
Output:
Liquid stool amount 1999
Rectum 1999
Gastrointestinal tube output ( 0 0
Total)
[place] Sump 0 / 0
Urine, Beltran 1530 / 1615 430 / 430
Urine, Voided 1100 / 1100 500 / 500
Other:
Number of approximated MODERATE 1
amounts of urine
How many times incontinent 1 1
MODERATE amount urine
How many times incontinent 1
SATURATED amount urine
Number of unmeasured liquid
stools
Rectum 2
Lab Results
07/17/25 04:54
07/17/25 04:54
Calcium 7.7 mg/dl (8.4-10.2) L 07/17/25 04:54
Phosphorus 4.7 mg/dl (2.5-4.5) H 07/17/25 04:54
Magnesium 1.7 mg/dl (1.6-2.3) 07/17/25 04:54
Total Bilirubin 1.0 mg/dl (0.2-1.3) 07/16/25 15:10
Direct Bilirubin 0.7 mg/dl (0.0-0.4) H 07/16/25 15:10
AST 15 U/L (14-36) 07/16/25 15:10
ALT < 10 U/L (0-35) 07/16/25 15:10
Alkaline Phosphatase 59 U/L (38-126) 07/16/25 15:10
Total Protein 5.3 g/dl (6.3-8.2) L 07/16/25 15:10
Albumin 2.7 g/dl (3.5-5.0) L 07/16/25 15:10
Physical Exam
-
Afebrile.
Awake and alert.
NG tube output as noted in charting.
Abdomen soft, nondistended, minimally if at all tender.
Left brachial cutdown site incision is clean dry and intact. Mild edema/soft hematoma. Soft. No tense fullness. Hand is pink and warm. Arterial line in place. Good waveform, blood pressure good.
--- NOTE | 2025-07-17 16:00 | PTCARENOTE ---
Reassessed the patient, pending midline insertion, will d/c RIJ cordis and Left radial art line.
[2025-07-17 18:40] LABS: Glucose - Point of Care 94 mg/dl (70-99)
--- NOTE | 2025-07-17 20:00 | PTCARENOTE ---
Resumed care of pt laying in bed AAOx3. Erica [employer] at bedside to remove right IJ cordis. Pressure applied, pressure dressing applied. NO bleeding noted, pt tolerated well. Beltran discontinued. Pt downgraded to [facility] level care. Pt inc of large
amount of liquid Green-brown stool, rectal pouch disconnected from drainage bag. tin care provided, barrier ointment/ powder applied to MSAD. Right nare NGT in place to contin suction. 4 Abd lap sites open to air with surg glue, pt denies any
complaints of abd discomfort. Hyper bowel sounds noted. Pt requesting pure wick, infection risk explained to pt. Encouraged to ring for bedpan. LUE brachial site ecchymotic, +1 edema, open to air with surg glue. Pt denies pain, just local
tenderness. Neurovascular checks as documented. Right midline in place infusing NSS@75/ml/hr, as well ass Heparin gtt @1200units /hr. Pt positioned per comfort. Call chew in reach. Will monitor.
[2025-07-18] VITALS (18 sets, daily range): BP systolic 126–184; BP diastolic 67–120; BMI 30.7
[2025-07-18 00:01] LABS: Glucose - Point of Care 72 mg/dl (70-99)
[2025-07-18] MEDS: ZOSYN 50 IV ×3 (05:30→17:09)
[2025-07-18] MEDS: FIRVANQ 125 MG TUBE (05:31)
[2025-07-18] MEDS: LOPRESSOR 5 MG IV ×2 (05:31→12:29)
[2025-07-18] MEDS: SYNTHROID 75 MCG PO (05:31)
[2025-07-18] MEDS: NOVOLOG FLEXPEN-LOW RESISTANCE SC ×2 (05:34→22:28)
[2025-07-18] MEDS: DEXTROSE 50% SYRINGE 12.5 GRAMS IV (05:36)
[2025-07-18 05:41] LABS: Hematocrit 32.3 % (37.0-47.0); Hemoglobin 10.9 g/dL (12.0-16.0); Mean Corp Hgb Conc. 33.7 g/dL (33.0-37.0); Mean Corpuscular Volume 87.8 fL (81.0-99.0); Platelet Count 230 10^3/uL (130-400); Red Cell Dist. Width 18.7 % (11.5-14.5)
[2025-07-18 05:45] LABS: Glucose - Point of Care 60 mg/dl (70-99)
[2025-07-18 05:53] LABS: APTT 122.0 Sec (23.4-35.0)
[2025-07-18 06:10] LABS: Glucose - Point of Care 138 mg/dl (70-99)
--- NOTE | 2025-07-18 06:27 | PTCARENOTE ---
Pt awake intermittently t/o the night. Pt voiding/ inc without complications. Pt grossly inc of liquid stool via rectal pouch. 450ml total output. Drainage more blood tinged this am compared to overnight. Frequent tin care provided to help mitigate
MASD. Pt hypoglycemic this am during routine bedside accu check, D50 administered as ordered. Pt asymptomatic. Pt positioned per comfort. Pt Tele level care. No other changes in assessment noted at this time. Will continue to monitor.
[2025-07-18 06:38] LABS: Blood Urea Nitrogen 7 mg/dl (7-17); Calcium 8.1 mg/dl (8.4-10.2); Carbon Dioxide 20 mmol/L (22-30); Chloride 118 mmol/L (98-107); Estimated Creatinine Clearance 89 ml/min; Glucose 55 mg/dl (70-99); Magnesium 1.7 mg/dl (1.6-2.3); Potassium 2.7 mmol/L (3.5-5.1); Sodium 146 mmol/L (135-145); eGFR > 60.00
--- NOTE | 2025-07-18 07:30 | PTCARENOTE ---
Received patient A&Ox3, denied pain throughout, on NC 2L, NSR w/ RBB, BP WNL, Right Nare NGT @58cm to Low Continuous suction, light green color drainage, incontinent w/ small blood clots and burgundy color in fecal bag, incontinent w/ urine, applied
external Purewick.
[2025-07-18 08:02] LABS: Glucose - Point of Care 77 mg/dl (70-99)
[2025-07-18] MEDS: PROTONIX IV 40 MG IV ×2 (08:31→19:55)
[2025-07-18] MEDS: NSS (PRESERVATIVE FREE) 10 ML IV ×2 (08:31→19:56)
[2025-07-18] MEDS: CORTEF 20 MG TUBE (08:31)
[2025-07-18] MEDS: CRESTOR 20 MG TUBE (08:31)
[2025-07-18] MEDS: PLAVIX 75 MG TUBE (08:31)
[2025-07-18] MEDS: HEPARIN 25000 UNITS/250 ML IV (08:32)
--- NOTE | 2025-07-18 08:42 | W.PN.HOSP.TC ---
Today's Communication/Plan
-
see bold
Assessment / Plan
Assessment / Plan
HPI: 69y F with PMH significant for s/p BioAVR, post-op CVA and subsequent hospitalization for CHF who presents to ED complaining of N/V/D since last PM.
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
- Urgent consult placed to vascular surgery and general surgery
- Last dose of Eliquis and Plavix 07/15
- Appreciate vascular surgery input, s/p emergent intravascular lithotripsy to SMA + balloon angioplasty and stenting of proximal SMA 07/16
- Change IV heparin drip to Eliquis, continue Plavix
- Vascular surgery has signed off, follow-up in the office in 2 weeks
- Appreciate general surgery input, NG tube removed 07/18, started on clears
#Hemorrhagic shock
- Resolved
Sepsis
Acute infectious gastroenteritis, unknown organism
Lactic acidosis
- Appreciate GI input
- Lactic acidosis resolved, trend fever and white count
- Stool studies positive for C. difficile antigen, negative for toxin
- Appreciate ID input, continue IV Zosyn, oral vancomycin
Worsening anemia, due to sepsis, acute blood loss, and anemia of chronic disease
- Appreciate hematology input, due to sepsis, acute blood loss, mild hemolysis, and anemia of chronic disease
- Status post 4 units packed red blood cells, 2 units of FFP on 07/16
- Hgb 10.9 today, was 11. Trend hemoglobin, transfuse as needed
Acute toxic metabolic encephalopathy
- Due to sepsis, resolved, provide supportive care
Coffee-ground emesis
- Started on Protonix 40 mg IV twice daily
Paroxysmal Atrial Fibrillation with rapid ventricular response
- Due to sepsis. Change IV heparin drip to Eliquis
- Appreciate cardiology input, converted to normal sinus rhythm s/p diltiazem drip
- Change IV metoprolol back to her home dose of toprol XL 25 mg BID
Aortic Stenosis s/p BioAVR
Chronic HFpEF
- Stable. No evidence of volume overload on exam.
- Hold Farxiga
- Give 1 dose of Lasix 40 mg IV x 1 for edema, resume home Lasix 20 mg p.o. daily
S/p CVA
- CVA POD #1 after AVR. Transferred to [place] for TCAR.
- No new neurologic deficits.
- Continue Plavix
PANTERA
- Likely due to dehydration +/- Bactrim use / med effect
- Creatinine normal today, down from 1.9 upon admission
- Trend creatinine, no nephrotoxic drugs/NSAIDs
Hypophosphatemia
Hypomagnesemia
Hypokalemia
- Replete as needed
Prolonged QTc
- Avoid Zofran and other QTc prolonging agents
- Continue Tigan IM as needed
Panhypopituitarism
Adrenal Insufficiency
Hypothyroidism
- Patient maintained on hydrocortisone daily.
- Given acute illness, hypotension, etc
- Change back po hydrocortisone
- Continue current T4 replacement
DM-II
- Hemoglobin A1c 5.7. Hold PO metformin acutely.
- Follow glucose and cover with SSI as needed - especially on higher dose steroids.
Frequent UTIs
- UA not suggestive of UTI at present.
- Just completed 3 day course of Bactrim on .
- Continue methenamine for prevention and monitor for any symptoms.
DVT Prophylaxis: Change IV heparin drip to Eliquis
Code Status: Full
Updated at bedside 07/18
Total time spent to see the patient on the floor, examine the patient, review data and lab results, discuss treatment plan with patient, nursing staff around 52 minutes.
Physical Exam
General: No acute distress
HEENT: Normocephalic, Atraumatic, EOMI, MMM
Respiratory: Clear to Auscultation bilaterally
Cardiac: Normal S1/S2, RRR
GI: Soft, mildly distended, mild tenderness diffusely
Incisions clean/dry/intact
Extremities: No Clubbing, Cyanosis
Moderate edema noted
Neuro: Confusion resolved
Anticipated Discharge: 24 - 48 hours
Subjective/Interval History
-
Date of Service: July 18, 2025
Patient continues to have dark burgundy stools. Her abdominal plain is tolerable. Denies chest pain, denies shortness of breath. No fever, no vomiting.
Objective Data
-
Labs:
Laboratory Results
07/18/25 07/18/25
05:25 12:00
WBC 13.9 H
Hgb 10.9 L
Hct 32.3 L
Plt Count 230
APTT 122.0 H Pending
Sodium 146 H
Potassium 2.7 L* D
Chloride 118 H
Carbon Dioxide 20 L
BUN 7
Creatinine 0.6
Glucose 55 L*
Calcium 8.1 L
Vital Signs:
Vital Signs
Temp Pulse Resp BP Pulse Ox
97.5 F 82 13 164/96 97
07/18/25 07:10 07/18/25 08:00 07/18/25 08:00 07/18/25 08:00 07/18/25 08:00
I&O
07/17/25 07/18/25 07/19/25
06:59 06:59 06:59
Intake Total 2726.5 / 2823.5 2588 / 2673 170 / 170
Output Total 2029 / 2115 2355 / 2355
Balance 696.5 / 708.5 233 / 318 170 / 170
--- NOTE | 2025-07-18 09:05 | W.PN.ID1 ---
Date of Service
Date of Service: July 18, 2025
Today's Communication
c/w Zosyn 3.375 gm IV q.6 hours and oral vancomycin
Assessment / Plan
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
A-fib with RVR.
GI bleed
Leukocytosis
C. difficile antigen (+) / toxin (-)
Diarrhea
Lactic acidosis
Aortic Stenosis
Hypertension
HFpEF
Paroxysmal Atrial Fibrillation
DM-II
Panhypopituitarism (Rathke's Cleft Cyst)
Hypothyroidism
Adrenal Insufficiency
Recurrent UTIs
Diverticular Disease
Recommendations:
CT findings noted. S/p revascularization for acute mesenteric ischemia
c/w Zosyn 3.375 gm IV q.6 hours and oral vancomycin
Monitor white count and temperature curve.
Continue with supportive measures.
����������������������������������������������������������
Chief Complaint
-: Leukocytosis, Clinical Sepsis and C-diff (colonization)
Subjective / Review of Systems
afebrile
bp stable off of pressors
having liquid stool via rectal pouch
Vital Signs / Physical Exam
Vital Signs
Vital Signs
Temp Pulse Resp BP Pulse Ox
97.5 F 82 13 164/96 97
07/18/25 07:10 07/18/25 08:00 07/18/25 08:00 07/18/25 08:00 07/18/25 08:00
Physical Exam
Constitutional: No Acute Distress and Chronically Ill
Cardiovascular: Regular Rate and S1/S2; Negative Murmur or Rub
Pulmonary: Clear and Symmetric; Negative Wheezes or Rales
Gastrointestinal: Soft, Non Tender, Non Distended and Normal Bowel Sounds
Skin: Warm and Dry; Negative Rash or Jaundice
Objective Data
Lab Data
Lab Results
07/18/25 05:25
07/18/25 05:25
PT 19.5 Sec (11.4-14.6) H 07/17/25 07:20
INR 1.62 07/17/25 07:20
APTT 122.0 Sec (23.4-35.0) H 07/18/25 05:25
Estimated Creat Clear 89 ml/min 07/18/25 05:25
Lactic Acid 1.9 mmol/L (0.7-2.0) 07/13/25 04:35
Total Bilirubin 1.0 mg/dl (0.2-1.3) 07/16/25 15:10
AST 15 U/L (14-36) 07/16/25 15:10
ALT < 10 U/L (0-35) 07/16/25 15:10
Alkaline Phosphatase 59 U/L (38-126) 07/16/25 15:10
Most recent labs reviewed.
Micro Results:
07/12/25 17:06 Blood Culture - Final
Blood/Venous No Growth - Final Report
07/11/25 19:37 Blood Culture - Final
Blood/Venous No Growth - Final Report
07/11/25 19:37 Blood Culture - Final
Blood/Venous No Growth - Final Report
07/12/25 11:37 Salmonella/Shigella Culture - Final
Feces/Stool No Salmonella, Shigella, Aeromonas or Plesiomonas species
isolated.
Campylobacter Culture - Final
No Campylobacter species isolated.
- Final
NO YERSINIA SPECIES ISOLATED
Shiga Toxin Test - Final
No E. coli Shiga Toxin 1 or 2 detected.
Stool Leukocytes - Final
07/12/25 11:37 Cryptosporidium/Giardia - Final
Feces/Stool Negative for Cryptosporidium and/or Giardia Lamblia
antigens.
C. difficile GDH Antigen & Toxins - Final
C. difficile antigen positive, toxin negative.
Clostridium difficile present, but toxin not detected.
Patient may be a carrier, colonized with nontoxinogenic
strain or the level of toxin in sample is below detection
limits. This information should be used in conjunction with
the patient's clinical history.
- Final
Negative for Norovirus GI and GII.
Imaging:
07/16/2025 CT abdomen/pelvis angio: severe acute small bowel ischemia with pneumatosis is noted. Moderate mesenteric edema, and small volume ascites noted. There is complete occlusion of the superior mesenteric artery. Severe calcific
atherosclerotic plaque in the abdominal aorta and iliac arteries. Moderate diverticulosis in the descending colon. Please see full dictation for additional detail.
07/11/2025 CT abdomen/pelvis without contrast: evaluation is limited without intravenous or oral contrast. No gross focal intrinsic abnormality of the unopacified liver, spleen, pancreas, kidneys or adrenal glands. No significant perinephric
stranding. Small gallstones are seen within a borderline prominent gallbladder. No biliary tract dilatation. Evaluation of the intestinal tract is markedly limited, but no intestinal obstruction or free air is noted. Please see full dictation
for additional detail.
[2025-07-18] MEDS: KCL 270 MEQ IV (09:12)
[2025-07-18] MEDS: D5/0.45%NSS with KCL 20 MEQ 1000 IV (09:49)
[2025-07-18] MEDS: MAGNESIUM SULFATE 100 IV (09:49)
[2025-07-18 10:14] LABS: Glucose - Point of Care 91 mg/dl (70-99)
--- NOTE | 2025-07-18 10:42 | W.PN.CD ---
Addendum entered and electronically signed by Parker Estrada MD 07/18/25 13:32:
I saw and evaluated the patient, and I provided the substantive portion of the medical decision making.
I reviewed and agree with the note by DR Swanson and it accurately reflects our care.
I personally performed the medical decision making of the this encounter and my assessment and plan is below:
Doing well; not tolerating PO
Cont meds; swithc to Eliquis when OK from surgical perspective
Original Note:
Today's Communication / Plan
-
Continue Plavix
Continue heparin drip
Continue metoprolol IV
Continue rosuvastatin
Replete potassium
Resume Eliquis with return of bowel function/oral feeding.
Impression / Plan
-
Impression
69 yo F (known to Dr. 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 Ponce), post-op CVA , TCAR done at [facility] and subsequent hospitalization for CHF (06/08/2025), paroxysmal A-fib (on Eliquis),
hypertension, hyperlipidemia, panhypopituitarism, diabetes type 2, and HFpEF who presents to ED complaining of N/V/D. She was septic and in PANTERA at presentation. Cardiology was consulted for A-fib with RVR.
Plan
#Sepsis/Lactic acidosis
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
-s/p SMA angioplasty and stenting and ex-lap
Continue Plavix
#A-fib with RVR
now back in SR 07/17
Patient was diagnosed in A-fib in June during her admission for acute heart failure exacerbation.
Patient was briefly on amiodarone but was off of it because of her prolonged QT (she was on ciprofloxacin for her UTI).
Telemetry reviewed
Continue metoprolol
Continue heparin GTT
Resume Eliquis with oral feeding
#Anemia:
Status post PRBC for, 2 FFP's
Hemoglobin stable at 10.9
Monitor for now
-Continue to hold Eliquis
#Hypokalemia
Potassium at 2.7
Replete
#CVA s/p TCAR
Continue Plavix
#AV stenosis s/p AVR, aortic enlargement
Stable
#HFpEF
Stable. No evidence of volume overload on exam.
Continue to hold Farxiga / Lasix
#PANTERA
Resolved
Monitor lytes, renal function
Physical Exam
Vital Signs/Labs
Vital Signs
Temp Pulse Resp BP Pulse Ox
97.5 F 82 13 164/96 97
07/18/25 07:10 07/18/25 08:00 07/18/25 08:00 07/18/25 08:00 07/18/25 08:00
07/17/25 07/18/25 07/19/25
06:59 06:59 06:59
Actual Weight 181 lb 7.047 oz 178 lb 9.191 oz
07/18/25 05:25
07/18/25 05:25
PT 19.5 Sec (11.4-14.6) H 07/17/25 07:20
INR 1.62 07/17/25 07:20
APTT 122.0 Sec (23.4-35.0) H 07/18/25 05:25
Magnesium 1.7 mg/dl (1.6-2.3) 07/18/25 05:25
TSH Cancelled 07/15/25 13:11
Physical Exam
Constitutional: No acute distress
Cardiovascular: Rhythm & rate is regular and S1S2 is normal
Respiratory: Respiratory effort normal and Lungs clear to auscul.
GI: Soft
Neuro/Psych: Alert, Oriented and AO x 3
Data Reviewed
-
Date of Service: July 18, 2025
[2025-07-18] MEDS: POTASSIUM PHOSPHATE 259.0909 MEQ IV (11:03)
--- NOTE | 2025-07-18 11:04 | W.PN.GS2 ---
Addendum entered and electronically signed by Harshal Maynard MD 07/18/25 11:24:
Patient seen and examined. Nursing at bedside. at bedside. 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
Patient reports very mild postoperative incisional abdominal pain.
No nausea.
Fecal incontinence device with blood-tinged stool. Patient feels as though she is actively passing stool with gas as well
NG tube with light gastric contents and diminishing output
AFVSS
ABD: Soft, nondistended, very minimal tenderness on palpation. No rebound rigidity or guarding.
Leukocytosis improving, hemoglobin stable, Chemistry panel notable for multiple electrolyte abnormalities likely secondary to severity of diarrhea/loose stool (hypernatremia, hypokalemia, hyperchloremia, hypophosphatemia)
A/P: 69-year-old female POD #2 status post Dx Laparoscopy, negative for irreversible bowel ischemia. Status post a gram, angioplasty and SMA stent placement with vascular
NG tube removed; clear liquid diet
ID following and managing antibiotics
Electrolyte replacement and IV fluids per hospitalist
Will continue to follow
Original Note:
Today's Communication / Plan
-
D/C NGT, start clears
Assessment / Plan
-
Assessment: 69-year-old female POD #2 status post diagnostic laparoscopy with bowel edema but no advanced/irreversible ischemia
POD #2 status post angiogram, angioplasty and SMA stent placement
AFVSS
Expected loose bowel movements with hematochezia but no clinical signs suggestive of bowel ischemia post revascularization
Plan:
D/C NGT
Ok for clear liquids
ABX as per ID
Medical management as per primary
Anticoagulation as per vascular recommendations
Subjective Data
-
Date of Service: July 18, 2025
Pt seen and examined at bedside with Dr Maynard. Still with liquid blood tinged stools. Fecal incontinence device in place. Intermittent mild pain. Denies n/v.
Objective Data
-
Intake and Output
07/17/25 07/18/25 07/19/25
06:59 06:59 06:59
Intake Total 2726.5 / 2823.5 2588 / 2673 170 / 170
Output Total 2029 / 5 2355 / 2355
Balance 696.5 / 708.5 233 / 318 170 / 170
Intake:
Oral fluids 0 / 0 120 / 120
IV fluids (Total) 2184 / 2281 2198 / 2283 170 / 170
Cordis 140 / 150 110 / 110
Heparin 144 / 156 288 / 298 20 / 20
Nss 1,000 ml @ 75 mls/hr IV . 825 / 900 1800 / 1875 150 / 150
[id number] TAMMIE Rx#:[id number]
normosol 1075 / 1075
IV piggybacks 542.5 / 542.5 150 / 150
Amount instilled into GI Tube ( 120 / 120
Total)
[place] Sump 120 / 120
Output:
Liquid stool amount 1450 / 1450
Rectum 1450 / 1450
Gastrointestinal tube output ( 0 / 0
Total)
[place] Sump 0 / 0
Urine, [place] 1530 / 1615 880 / 880
Urine, Voided 500 / 500
Other:
How many times incontinent 1 1
MODERATE amount urine
How many times incontinent 1
SATURATED amount urine
Number of unmeasured liquid
stools
Rectum 2 1
Vital Signs
Temp Pulse Resp BP Pulse Ox
97.5 F 82 13 164/96 97
07/18/25 07:10 07/18/25 08:00 07/18/25 08:00 07/18/25 08:00 07/18/25 08:00
Lab Results
07/18/25 05:25
07/18/25 05:25
Calcium 8.1 mg/dl (8.4-10.2) L 07/18/25 05:25
Phosphorus 2.4 mg/dl (2.5-4.5) L 07/18/25 05:25
Magnesium 1.7 mg/dl (1.6-2.3) 07/18/25 05:25
Total Bilirubin 1.0 mg/dl (0.2-1.3) 07/16/25 15:10
Direct Bilirubin 0.7 mg/dl (0.0-0.4) H 07/16/25 15:10
AST 15 U/L (14-36) 07/16/25 15:10
ALT < 10 U/L (0-35) 07/16/25 15:10
Alkaline Phosphatase 59 U/L (38-126) 07/16/25 15:10
Total Protein 5.3 g/dl (6.3-8.2) L 07/16/25 15:10
Albumin 2.7 g/dl (3.5-5.0) L 07/16/25 15:10
Physical Exam
-
NAD AAO x 3
ABD: soft, minimal tenderness at laparoscopic sites only. No rebound, no rigidity, no guarding. No pain out of proportion to examination.
Fecal incontinence collection device with liquid yellow/bloody stool
--- NOTE | 2025-07-18 12:00 | PTCARENOTE ---
Reassessed the patient, surgery team advanced to clear liquids, no N/V. Titrated off NC 2L, now on RA.
[2025-07-18] MEDS: NOVOLOG FLEXPEN-LOW RESISTANCE 1 UNITS SC ×2 (12:51→17:12)
[2025-07-18] MEDS: KCL ELIXIR 40 MEQ PO ×2 (12:52→17:13)
[2025-07-18] MEDS: FIRVANQ 125 MG PO ×2 (12:54→17:10)
[2025-07-18 12:59] LABS: APTT 65.7 Sec (23.4-35.0)
[2025-07-18 13:01] LABS: Glucose - Point of Care 158 mg/dl (70-99)
[2025-07-18] MEDS: FIRVANQ TUBE (13:28)
[2025-07-18 14:50] LABS: APTT 59.9 Sec (23.4-35.0)
[2025-07-18 15:34] LABS: Blood Urea Nitrogen 4 mg/dl (7-17); Calcium 7.3 mg/dl (8.4-10.2); Carbon Dioxide 21 mmol/L (22-30); Chloride 115 mmol/L (98-107); Estimated Creatinine Clearance 89 ml/min; Glucose 208 mg/dl (70-99); Potassium 3.8 mmol/L (3.5-5.1); Sodium 139 mmol/L (135-145); eGFR > 60.00
[2025-07-18] MEDS: KCL 260 MEQ IV (16:48)
[2025-07-18] MEDS: LASIX 40 MG IV (16:48)
[2025-07-18] MEDS: TOPROL XL 25 MG PO ×2 (17:10→19:55)
[2025-07-18 17:21] LABS: Glucose - Point of Care 163 mg/dl (70-99)
[2025-07-18] MEDS: ELIQUIS 5 MG PO (19:55)
[2025-07-18] MEDS: FLUSH (NSS) 3 FLUSH IV (19:57)
--- NOTE | 2025-07-18 21:00 | PTCARENOTE ---
Eliquis given hep gtt stopped per orders. sinus afebrile bp wnl- left brachial and radial pulse by Doppler. no changes at sites- left arm very ecchymotic per baseline sites on abd intact-
[2025-07-18 22:33] LABS: Glucose - Point of Care 117 mg/dl (70-99)
[2025-07-19] VITALS (11 sets, daily range): BP systolic 70–145; BP diastolic 52–103; BMI 30.6; BMI 29.7
[2025-07-19] MEDS: FIRVANQ 125 MG PO ×4 (00:26→17:44)
[2025-07-19] MEDS: TIGAN 200 MG IM (00:28)
[2025-07-19] MEDS: BENADRYL 25 MG IV (02:03)
[2025-07-19] MEDS: FLUSH (NSS) 3 FLUSH IV (02:03)
[2025-07-19 03:06] LABS: Glucose - Point of Care 101 mg/dl (70-99)
--- NOTE | 2025-07-19 03:23 | PTCARENOTE ---
nausea un relieved with Tigan- civil drafting technician ordered Benadryl which was effective
[2025-07-19 04:30] LABS: Hematocrit 38.1 % (37.0-47.0); Hemoglobin 12.8 g/dL (12.0-16.0); Mean Corp Hgb Conc. 33.6 g/dL (33.0-37.0); Mean Corpuscular Volume 87.6 fL (81.0-99.0); Platelet Count 281 10^3/uL (130-400); Red Cell Dist. Width 19.2 % (11.5-14.5)
[2025-07-19 05:01] LABS: Blood Urea Nitrogen 4 mg/dl (7-17); Calcium 7.6 mg/dl (8.4-10.2); Carbon Dioxide 21 mmol/L (22-30); Chloride 110 mmol/L (98-107); Estimated Creatinine Clearance 88 ml/min; Glucose 91 mg/dl (70-99); Magnesium 1.4 mg/dl (1.6-2.3); Potassium 3.8 mmol/L (3.5-5.1); Sodium 138 mmol/L (135-145); eGFR > 60.00
[2025-07-19] MEDS: ZOSYN 50 IV ×4 (05:11→17:45)
[2025-07-19] MEDS: SYNTHROID 75 MCG PO (05:38)
[2025-07-19] MEDS: NOVOLOG FLEXPEN-LOW RESISTANCE SC ×4 (08:25→22:06)
--- NOTE | 2025-07-19 08:28 | W.PN.CD ---
Today's Communication / Plan
-
Back on home medications
WBC is elevated today
Impression / Plan
-
Impression
69 yo F (known to Dr. Bacon, her primary Guest Services Assistant) with s/p BioAVR and aortic enlargement (05/27/[address] Ponce), post-op CVA , TCAR done at [facility] and subsequent hospitalization for CHF (06/08/2025), paroxysmal A-fib (on Eliquis),
hypertension, hyperlipidemia, panhypopituitarism, diabetes type 2, and HFpEF who presents to ED complaining of N/V/D. She was septic and in PANTERA at presentation. Cardiology was consulted for A-fib with RVR.
Plan
#Sepsis/Lactic acidosis
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
-s/p SMA angioplasty and stenting and ex-lap
Continue Plavix
#A-fib with RVR
now back in SR 07/17
Patient was diagnosed in A-fib in June during her admission for acute heart failure exacerbation.
Patient was briefly on amiodarone but was off of it because of her prolonged QT (she was on ciprofloxacin for her UTI).
Telemetry reviewed
Continue metoprolol
Continue heparin GTT
Resume Eliquis with oral feeding
#Anemia:
Resolve/resolving
Leukocytosis
worsening now up to 20
per primary
#Hypokalemia
Potassium at 2.7
Replete
#CVA s/p TCAR
Continue Plavix
#AV stenosis s/p AVR, aortic enlargement
Stable
#HFpEF
Stable. No evidence of volume overload on exam.
Continue to hold Farxiga / Lasix
#PANTERA
Resolved
Monitor lytes, renal function
Subjective
feeling tired
Physical Exam
Vital Signs/Labs
Vital Signs
Temp Pulse Resp BP Pulse Ox
98.1 F 98 24 114/71 95
07/19/25 04:00 07/19/25 08:00 07/19/25 08:00 07/19/25 08:00 07/19/25 08:00
07/18/25 07/19/25 07/20/25
06:59 06:59 06:59
Actual Weight 178 lb 9.191 oz 177 lb 14.609 oz
07/19/25 04:20
07/19/25 04:20
PT 19.5 Sec (11.4-14.6) H 07/17/25 07:20
INR 1.62 07/17/25 07:20
APTT Cancelled 07/18/25 22:00
Magnesium 1.4 mg/dl (1.6-2.3) L 07/19/25 04:20
TSH Cancelled 07/15/25 13:11
Physical Exam
Constitutional: No acute distress and Other (tired)
EENT: Anicteric
Cardiovascular: Rhythm & rate is regular
Respiratory: Respiratory effort normal and Rhonchi Present
GI: Soft
Neuro/Psych: Alert and Oriented
Data Reviewed
-
Date of Service: July 19, 2025
Medical Decision Making: Reviewed Test Results
EKG: Tracing Personally Visualized and interpreted (sr)
Echo: Report Reviewed by me
Labs: Labs Reviewed by me
[2025-07-19 08:36] LABS: Glucose - Point of Care 107 mg/dl (70-99)
[2025-07-19] MEDS: CRESTOR 20 MG PO (08:48)
[2025-07-19] MEDS: CORTEF 20 MG PO (08:48)
[2025-07-19] MEDS: LASIX 20 MG PO (08:48)
[2025-07-19] MEDS: ELIQUIS 5 MG PO ×2 (08:48→19:55)
[2025-07-19] MEDS: PLAVIX 75 MG PO (08:49)
[2025-07-19] MEDS: TOPROL XL 25 MG PO ×2 (08:49→19:56)
[2025-07-19] MEDS: NSS (PRESERVATIVE FREE) 10 ML IV ×2 (08:49→19:56)
[2025-07-19] MEDS: PROTONIX IV 40 MG IV ×2 (08:49→19:56)
--- NOTE | 2025-07-19 09:13 | W.PN.HOSP.TC ---
Today's Communication/Plan
-
Less nausea, ok to use Zofran if needed
Assessment / Plan
Assessment / Plan
HPI: 69y F with PMH significant for s/p BioAVR, post-op CVA and subsequent hospitalization for CHF who presents to ED complaining of N/V/D since last PM.
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
- Urgent consult placed to vascular surgery and general surgery
- Last dose of Eliquis and Plavix 07/15
- Appreciate vascular surgery input, s/p emergent intravascular lithotripsy to SMA + balloon angioplasty and stenting of proximal SMA 07/16
- Change IV heparin drip to Eliquis, continue Plavix
- Vascular surgery has signed off, follow-up in the office in 2 weeks
- Appreciate general surgery input, NG tube removed 07/18, started on clears
#Hemorrhagic shock
- Resolved
Sepsis
Acute infectious gastroenteritis, unknown organism
Lactic acidosis
- Appreciate GI input
- Lactic acidosis resolved, trend fever and white count
- Stool studies positive for C. difficile antigen, negative for toxin
- Appreciate ID input, continue IV Zosyn, oral vancomycin
Worsening anemia, due to sepsis, acute blood loss, and anemia of chronic disease
- Appreciate hematology input, due to sepsis, acute blood loss, mild hemolysis, and anemia of chronic disease
- Status post 4 units packed red blood cells, 2 units of FFP on 07/16
- Hgb 10.9 today, was 11. Trend hemoglobin, transfuse as needed
Acute toxic metabolic encephalopathy
- Due to sepsis, resolved, provide supportive care
Hypomagnesemia
Hypokalemia
Coffee-ground emesis
- Started on Protonix 40 mg IV twice daily
Paroxysmal Atrial Fibrillation with rapid ventricular response
- Due to sepsis. Change IV heparin drip to Eliquis
- Appreciate cardiology input, converted to normal sinus rhythm s/p diltiazem drip
- Change IV metoprolol back to her home dose of toprol XL 25 mg BID
Aortic Stenosis s/p BioAVR
Mild acute on Chronic HFpEF
- Stable. No evidence of volume overload on exam.
- Hold Farxiga
- Give 1 dose of Lasix 40 mg IV x 1 for edema, resumed home Lasix 20 mg p.o. daily
S/p CVA
- CVA POD #1 after AVR. Transferred to [place] for TCAR.
- No new neurologic deficits.
- Continue Plavix
PANTERA
- Likely due to dehydration +/- Bactrim use / med effect
Resolved
Hypophosphatemia
Hypomagnesemia
Hypokalemia
- Replete as needed
Prolonged QTc
Mild
- Continue Tigan IM as needed
Panhypopituitarism
Adrenal Insufficiency
Hypothyroidism
- Patient maintained on hydrocortisone daily.
- Given acute illness, hypotension, etc
- Change back po hydrocortisone
- Continue current T4 replacement
DM-II
- Hemoglobin A1c 5.7. Hold PO metformin acutely.
- Follow glucose and cover with SSI as needed - especially on higher dose steroids.
Frequent UTIs
- UA not suggestive of UTI at present.
- Just completed 3 day course of Bactrim on .
- Continue methenamine for prevention and monitor for any symptoms.
DVT Prophylaxis: Change IV heparin drip to Eliquis
Code Status: Full
Updated at bedside 07/18
Total time spent to see the patient, examine the patient, review data and lab results, discuss treatment plan with patient, nursing staff around 55 minutes
Physical Exam
General: No acute distress
HEENT: Normocephalic, Atraumatic, EOMI, MMM
Respiratory: Clear to Auscultation bilaterally
Cardiac: Normal S1/S2, RRR
GI: Soft, mildly distended, mild tenderness diffusely
Incisions clean/dry/intact
Extremities: No Clubbing, Cyanosis
Moderate edema noted
Neuro: Confusion resolved
Psych : calm
Anticipated Discharge: > 48 hours
Subjective/Interval History
-
Date of Service: July 19, 2025
No chest pain
No nausea ( now)
Mild abdominal discomfort
Objective Data
-
Labs:
Laboratory Results
07/18/25 07/19/25
22:00 04:20
WBC 20.4 H
Hgb 12.8
Hct 38.1
Plt Count 281 D
APTT Cancelled
Sodium 138
Potassium 3.8
Chloride 110 H
Carbon Dioxide 21 L
BUN 4 L
Creatinine 0.6
Glucose 91
Calcium 7.6 L
Vital Signs:
Vital Signs
Temp Pulse Resp BP Pulse Ox
98.3 F 98 24 114/71 95
07/19/25 07:52 07/19/25 08:00 07/19/25 08:00 07/19/25 08:00 07/19/25 08:00
I&O
07/18/25 07/19/25 07/20/25
06:59 06:59 06:59
Intake Total 2588 / 2673 4312.2 / 4312.2
Output Total 2355 / 2355 3450 / 3450
Balance 233 / 318 862.2 / 862.2
--- NOTE | 2025-07-19 09:26 | PTCARENOTE ---
Pt assisted oob to chair with myself and help from . Pt flat, still reports abdominal pain, nausea. Maintained on clears. Needs encouragement to stay in chair and order food. Assessment as charted.
[2025-07-19] MEDS: MAGNESIUM SULFATE 50 IV (11:03)
--- NOTE | 2025-07-19 11:16 | W.PN.ID1 ---
Date of Service
Date of Service: July 19, 2025
Today's Communication
Continue current antibiotics for today.
Assessment / Plan
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
A-fib with RVR.
GI bleed
Leukocytosis
C. difficile antigen (+) / toxin (-)
Diarrhea
Lactic acidosis
Aortic Stenosis
Hypertension
HFpEF
Paroxysmal Atrial Fibrillation
DM-II
Panhypopituitarism (Rathke's Cleft Cyst)
Hypothyroidism
Adrenal Insufficiency
Recurrent UTIs
Diverticular Disease
Recommendations:
CT findings noted. S/p revascularization for acute mesenteric ischemia.
c/w Zosyn 3.375 gm IV q.6 hours and oral vancomycin
Monitor white count and temperature curve.
May need additional abdominal imaging if white count continues to trend up.
Continue with supportive measures.
����������������������������������������������������������
Chief Complaint
-: Leukocytosis, Clinical Sepsis and C-diff (colonization)
Subjective / Review of Systems
Patient seen and examined. Feeling tired today. Nausea noted overnight.
Review of Systems: No Fever
Vital Signs / Physical Exam
Vital Signs
Vital Signs
Temp Pulse Resp BP Pulse Ox
98.3 F 92 27 118/92 95
07/19/25 07:52 07/19/25 11:00 07/19/25 11:00 07/19/25 08:36 07/19/25 08:00
Physical Exam
Constitutional: No Acute Distress and Chronically Ill
Cardiovascular: Regular Rate and S1/S2; Negative Murmur or Rub
Pulmonary: Clear and Symmetric; Negative Wheezes or Rales
Gastrointestinal: Soft, Non Tender, Non Distended and Decreased Bowel Sounds
Skin: Warm and Dry; Negative Rash or Jaundice
Neurological: Awake
Psychological: Calm
Objective Data
Lab Data
Lab Results
07/19/25 04:20
07/19/25 04:20
PT 19.5 Sec (11.4-14.6) H 07/17/25 07:20
INR 1.62 07/17/25 07:20
APTT Cancelled 07/18/25 22:00
Estimated Creat Clear 88 ml/min 07/19/25 04:20
Lactic Acid 1.9 mmol/L (0.7-2.0) 07/13/25 04:35
Total Bilirubin 1.0 mg/dl (0.2-1.3) 07/16/25 15:10
AST 15 U/L (14-36) 07/16/25 15:10
ALT < 10 U/L (0-35) 07/16/25 15:10
Alkaline Phosphatase 59 U/L (38-126) 07/16/25 15:10
Most recent labs reviewed.
Micro Results:
07/12/25 17:06 Blood Culture - Final
Blood/Venous No Growth - Final Report
07/11/25 19:37 Blood Culture - Final
Blood/Venous No Growth - Final Report
07/11/25 19:37 Blood Culture - Final
Blood/Venous No Growth - Final Report
07/12/25 11:37 Salmonella/Shigella Culture - Final
Feces/Stool No Salmonella, Shigella, Aeromonas or Plesiomonas species
isolated.
Campylobacter Culture - Final
No Campylobacter species isolated.
- Final
NO YERSINIA SPECIES ISOLATED
Shiga Toxin Test - Final
No E. coli Shiga Toxin 1 or 2 detected.
Stool Leukocytes - Final
07/12/25 11:37 Cryptosporidium/Giardia - Final
Feces/Stool Negative for Cryptosporidium and/or Giardia Lamblia
antigens.
C. difficile GDH Antigen & Toxins - Final
C. difficile antigen positive, toxin negative.
Clostridium difficile present, but toxin not detected.
Patient may be a carrier, colonized with nontoxinogenic
strain or the level of toxin in sample is below detection
limits. This information should be used in conjunction with
the patient's clinical history.
- Final
Negative for Norovirus GI and GII.
Imaging:
07/16/2025 CT abdomen/pelvis angio: severe acute small bowel ischemia with pneumatosis is noted. Moderate mesenteric edema, and small volume ascites noted. There is complete occlusion of the superior mesenteric artery. Severe calcific
atherosclerotic plaque in the abdominal aorta and iliac arteries. Moderate diverticulosis in the descending colon. Please see full dictation for additional detail.
07/11/2025 CT abdomen/pelvis without contrast: evaluation is limited without intravenous or oral contrast. No gross focal intrinsic abnormality of the unopacified liver, spleen, pancreas, kidneys or adrenal glands. No significant perinephric
stranding. Small gallstones are seen within a borderline prominent gallbladder. No biliary tract dilatation. Evaluation of the intestinal tract is markedly limited, but no intestinal obstruction or free air is noted. Please see full dictation
for additional detail.
--- NOTE | 2025-07-19 11:26 | W.PN.GS2 ---
Today's Communication / Plan
-
Stay on clears
Assessment / Plan
-
Assessment: 69-year-old female POD #3 status post diagnostic laparoscopy with bowel edema but no advanced/irreversible ischemia
POD #3 status post angiogram, angioplasty and SMA stent placement
AFVSS
Expected loose bowel movements with hematochezia but no clinical signs suggestive of bowel ischemia post revascularization
Plan:
Will keep on clear liquids for now
ABX as per ID
Medical management as per primary
Anticoagulation as per vascular recommendations
Time Spent
Total Time Spent with Patient (in minutes): 20
Subjective Data
-
Date of Service: July 19, 2025
Interval Events:
No acute events overnight. Slept well. Pain Controlled. Endorses nausea no vomiting. +bowel function. Tolerating diet.
Objective Data
-
Intake and Output
07/18/25 07/19/25/
06:59 06:59 06:59
Intake Total 2588 / 2673 4312.2 / 4312.2
Output Total 2355 / 2355 3450 / 3450
Balance 233 / 318 862.2 / 862.2
Intake:
Oral fluids 120 / 120 2440 / 2440
IV fluids (Total) 2198 / 2283 833 / 833
Cordis 110 / 110
D5/0.45%NSS with KCL 20 MEQ 20 450 / 450
meq In 1,000 ml @ 75 mls/hr IV
.[id number] TAMMIE Rx#:[id number]
Heparin 288 / 298 158 / 158
Nss 1,000 ml @ 75 mls/hr IV . 1800 / 1875 225 / 225
[id number] TAMMIE Rx#:[id number]
IV piggybacks 150 / 150 1039.2 / 1039.2
Amount instilled into GI Tube ( 120 / 120
Total)
[place] Sump 120 / 120
Output:
Liquid stool amount 1450 / 1450 850 / 850
Rectum 1450 / 1450 850 / 850
Gastrointestinal tube output (
Total)
[place] Sump
Urine, [place]well 880 / 880
Urine, Voided 2600 / 2600
Other:
How many times incontinent 2
MODERATE amount urine
How many times incontinent 1 1
SATURATED amount urine
Number of unmeasured liquid
stools
Rectum 1 1
Vital Signs
Temp Pulse Resp BP Pulse Ox
98.3 F 92 27 118/92 95
07/19/25 07:52 07/19/25 11:00 07/19/25 11:00 07/19/25 08:36 07/19/25 08:00
Lab Results
07/19/25 04:20
07/19/25 04:20
Calcium 7.6 mg/dl (8.4-10.2) L 07/19/25 04:20
Phosphorus 2.6 mg/dl (2.5-4.5) 07/19/25 04:20
Magnesium 1.4 mg/dl (1.6-2.3) L 07/19/25 04:20
Total Bilirubin 1.0 mg/dl (0.2-1.3) 07/16/25 15:10
Direct Bilirubin 0.7 mg/dl (0.0-0.4) H 07/16/25 15:10
AST 15 U/L (14-36) 07/16/25 15:10
ALT < 10 U/L (0-35) 07/16/25 15:10
Alkaline Phosphatase 59 U/L (38-126) 07/16/25 15:10
Total Protein 5.3 g/dl (6.3-8.2) L 07/16/25 15:10
Albumin 2.7 g/dl (3.5-5.0) L 07/16/25 15:10
Physical Exam
-
GENERAL/NEURO: Awake, Alert, no distress
CHEST: Unlabored breathing on RA
ABDOMEN: Soft, Non-Tender, distended, incisions clean dry intact.
Patient has a tidwell catheter: No
Patient has a central line: No
[2025-07-19 12:23] LABS: Glucose - Point of Care 135 mg/dl (70-99)
--- NOTE | 2025-07-19 15:41 | CM ---
POD #3. WBC 20.4, PO Vanco, clear liquids. Discharge POC: TBD. Await therapy eval.
--- NOTE | 2025-07-19 16:22 | W.PN.ONC2 ---
Today's Communication / Plan
-
daily CBC, transfuse prn
f/u APLS panel
Impression
Impression
p/w ab pain,dark emesis, & diarrhea
occlusion SMA, small bowel ischemia, prior sigmoidectomy
ABLA/GIB
s/p TCAR at [facility]
acute on chronic normocytic anemia -chronic anemia with Hgb ~11g/dL noted 2023. iron studies c/w AOCD. Less likely hemolysis with normal LFTs & LDH, JUSTIN negative. No B12 or folate deficiency
Atrial fibrillation on DOAC
Reactive leukocytosis (neutrophilia) +/- steroids
Aortic stenosis s/p AVR
CVA
CHF
panhypopituitarism/Adrenal insufficiency/hypothyroid
c.diff ag +/ toxin negative
Plan
Plan
resumption of AC/AP for cardiac hx based on cardiology/vascular surgery/GI risk benefit -curently on apixaban and plavix
on PPI
PO Vanco & IVabx -ID following
f/u APLS panel
transfuse Hgb < 7 or as needed for sxs anemia
Subjective/Objective
Subjective
no new complaints
drowsy
Vital Signs:
Vital Signs
Temp Pulse Resp BP Pulse Ox
97.7 F 83 25 114/71 95
07/19/25 12:10 07/19/25 16:00 07/19/25 16:00 07/19/25 16:00 07/19/25 08:00
Lab Results:
Laboratory Data
WBC 20.4 10^3/uL (4.8-10.8) H 07/19/25 04:20
Hgb 12.8 g/dL (12.0-16.0) 07/19/25 04:20
Plt Count 281 10^3/uL (130-400) D 07/19/25 04:20
PT 19.5 Sec (11.4-14.6) H 07/17/25 07:20
INR 1.62 07/17/25 07:20
APTT Cancelled 07/18/25 22:00
eGFR > 60.00 07/19/25 04:20
Physical Exam
HEENT: No Jaundice
Pulmonary: Other (unlabored)
GI: Soft
Extremities: Pulses Present
[2025-07-19 17:01] LABS: Glucose - Point of Care 128 mg/dl (70-99)
--- NOTE | 2025-07-19 20:04 | PTCARENOTE ---
bladder scanned for 600, str cathed for 550ml yellow urine
--- NOTE | 2025-07-19 20:15 | PTCARENOTE ---
report given to floor; transferred to 335 via bed accomp by self on monitor
--- NOTE | 2025-07-19 20:49 | PTCARENOTE ---
Received report from SLACKLINE OPERATORLeyla. Pt transferred to Room 335. Plan of care ongoing.
[2025-07-19 21:38] LABS: Glucose - Point of Care 141 mg/dl (70-99)
[2025-07-20] VITALS (7 sets, daily range): BP systolic 108–144; BP diastolic 61–87; BMI 29.7
[2025-07-20] MEDS: ZOSYN 50 IV ×4 (00:08→17:15)
[2025-07-20] MEDS: FIRVANQ 125 MG PO ×4 (00:12→17:15)
[2025-07-20] MEDS: SYNTHROID 75 MCG PO (06:06)
[2025-07-20 06:54] LABS: Hematocrit 35.2 % (37.0-47.0); Hemoglobin 11.9 g/dL (12.0-16.0); Mean Corp Hgb Conc. 33.8 g/dL (33.0-37.0); Mean Corpuscular Volume 88.7 fL (81.0-99.0); Platelet Count 259 10^3/uL (130-400); Red Cell Dist. Width 18.6 % (11.5-14.5)
[2025-07-20 07:39] LABS: Glucose - Point of Care 140 mg/dl (70-99)
--- NOTE | 2025-07-20 07:58 | W.PN.CD ---
Today's Communication / Plan
-
Continue Metoprolol (AF), Eliquis (AF), Plavix (SMA stent), and home PO Lasix
Resume Farxiga and Lisinopril as tolerated or at discharge
Cardiology will sign off at this time. Please call with any additional questions or concerns.
Impression / Plan
-
Impression
69 yo F (known to Dr. Bacon, her primary Tests Superintendent) with s/p BioAVR and aortic enlargement (05/27/[address] Ponce), post-op CVA , TCAR done at [facility] and subsequent hospitalization for CHF (06/08/2025), paroxysmal A-fib (on Eliquis),
hypertension, hyperlipidemia, panhypopituitarism, diabetes type 2, and HFpEF who presents to ED complaining of N/V/D. She was septic and in PANTERA at presentation. Cardiology was consulted for A-fib with RVR.
Plan
#Sepsis/Lactic acidosis
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
s/p SMA angioplasty and stenting and ex-lap
Continue Plavix
#A-fib with RVR
now back in SR 07/17
Patient was diagnosed in A-fib in June during her admission for acute heart failure exacerbation.
Patient was briefly on amiodarone but was off of it because of her prolonged QT (she was on ciprofloxacin for her UTI).
Telemetry reviewed
Continue metoprolol
Continue Eliquis
#Anemia:
Resolved/resolving
Leukocytosis
worsening now up to 20
per primary
#CVA s/p TCAR
Continue Plavix
#AV stenosis s/p AVR, aortic enlargement
Stable
#HFpEF
Stable. No evidence of volume overload on exam.
Continue Lasix
Resume Farxga prior to discharge
#PANTERA
Resolved
Monitor lytes, renal function
Subjective: still having lower abdominal pain
Telemetry: brief run of SVT
Physical Exam
Vital Signs/Labs
Vital Signs
Temp Pulse Resp BP Pulse Ox
98.8 F 86 14 121/79 97
07/20/25 03:00 07/20/25 03:00 07/20/25 03:00 07/20/25 03:00 07/20/25 03:00
07/19/25 07/20/25 07/21/25
06:59 06:59 06:59
Actual Weight 177 lb 14.609 oz 173 lb 2 oz
07/20/25 06:43
07/19/25 04:20
PT 19.5 Sec (11.4-14.6) H 07/17/25 07:20
INR 1.62 07/17/25 07:20
APTT Cancelled 07/18/25 22:00
Magnesium 1.4 mg/dl (1.6-2.3) L 07/19/25 04:20
TSH Cancelled 07/15/25 13:11
Physical Exam
Constitutional: No acute distress and Comfortable
Cardiovascular: Rhythm & rate is regular, Pedal edema is absent, Systolic murmur present and S1S2 is normal
Respiratory: Respiratory effort normal and Lungs clear to auscul.
Neuro/Psych: AO x 3
Data Reviewed
-
Date of Service: July 20, 2025
Medical Decision Making: Reviewed Test Results, Test Interpretation and Review of Case with other Provider
EKG: Tracing Personally Visualized and interpreted
Echo: Report Reviewed by me
X-Ray/CT/US/MRI/NUC/PET: Report Reviewed by me
Labs: Labs Reviewed by me
[2025-07-20 08:31] LABS: Beta-2-Glycoprotein I Ab. IgG <10 SGU (<=20); Beta-2-Glycoprotein I Ab. IgM <10 SMU (<=20)
--- NOTE | 2025-07-20 09:09 | W.PN.HOSP.TC ---
Today's Communication/Plan
-
PT/OT
c/w bladder scan protocol
replace Mg
Assessment / Plan
Assessment / Plan
HPI: 69y F with PMH significant for s/p BioAVR, post-op CVA and subsequent hospitalization for CHF who presents to ED complaining of N/V/D since last PM.
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
- Urgent consult placed to vascular surgery and general surgery
- Last dose of Eliquis and Plavix 07/15
- Appreciate vascular surgery input, s/p emergent intravascular lithotripsy to SMA + balloon angioplasty and stenting of proximal SMA 07/16
- Change IV heparin drip to Eliquis, continue Plavix
- Vascular surgery has signed off, follow-up in the office in 2 weeks
- Appreciate general surgery input, NG tube removed 07/18, started on clears
#Hemorrhagic shock
- Resolved
Acute urinary retention
encourage ambulation, bladder scan protocol
Episode of SVT
c/w BB
d/w slasher tender.
Sepsis
Acute infectious gastroenteritis, unknown organism
Lactic acidosis
- Appreciate GI input
- Lactic acidosis resolved, trend fever and white count
- Stool studies positive for C. difficile antigen, negative for toxin
- Appreciate ID input, continue IV Zosyn, oral vancomycin
Worsening anemia, due to sepsis, acute blood loss, and anemia of chronic disease
- Appreciate hematology input, due to sepsis, acute blood loss, mild hemolysis, and anemia of chronic disease
- Status post 4 units packed red blood cells, 2 units of FFP on 07/16
-transfuse as needed
Acute toxic metabolic encephalopathy
- Due to sepsis, resolved, provide supportive care
Hypomagnesemia
Hypokalemia
Coffee-ground emesis
- Started on Protonix 40 mg IV twice daily
Paroxysmal Atrial Fibrillation with rapid ventricular response
- Due to sepsis. Change IV heparin drip to Eliquis
- Appreciate cardiology input, converted to normal sinus rhythm s/p diltiazem drip
- Change IV metoprolol back to her home dose of toprol XL 25 mg BID
Aortic Stenosis s/p BioAVR
Mild acute on Chronic HFpEF
- Stable. No evidence of volume overload on exam.
- Hold Farxiga
- Give 1 dose of Lasix 40 mg IV x 1 for edema, resumed home Lasix 20 mg p.o. daily
S/p CVA
- CVA POD #1 after AVR. Transferred to [place] for TCAR.
- No new neurologic deficits.
- Continue Plavix
PANTERA
- Likely due to dehydration +/- Bactrim use / med effect
Resolved
Hypophosphatemia
Hypomagnesemia
Hypokalemia
- Replete as needed
Prolonged QTc
Mild
- Continue Tigan IM as needed
Panhypopituitarism
Adrenal Insufficiency
Hypothyroidism
- Patient maintained on hydrocortisone daily.
- Given acute illness, hypotension, etc
- Change back po hydrocortisone
- Continue current T4 replacement
DM-II
- Hemoglobin A1c 5.7. Hold PO metformin acutely.
- Follow glucose and cover with SSI as needed - especially on higher dose steroids.
Frequent UTIs
- UA not suggestive of UTI at present.
- Just completed 3 day course of Bactrim on .
- Continue methenamine for prevention and monitor for any symptoms.
DVT Prophylaxis: Change IV heparin drip to Eliquis
Code Status: Full
Total time spent to see the patient, examine the patient, review data and lab results, discuss treatment plan with patient, nursing staff around 55 minutes
Physical Exam
General: No acute distress
HEENT: Normocephalic, Atraumatic, EOMI, MMM
Respiratory: Clear to Auscultation bilaterally
Cardiac: Normal S1/S2, RRR
GI: Soft, mildly distended, mild tenderness diffusely
Incisions clean/dry/intact
Extremities: No Clubbing, Cyanosis
Moderate edema noted
Neuro: Confusion resolved
Psych : calm
Anticipated Discharge: > 48 hours
Subjective/Interval History
-
Date of Service: July 20, 2025
No chest pain
Feels abdominal discomfort
Objective Data
-
Labs:
Laboratory Results
07/20/25
06:43
WBC 20.3 H
Hgb 11.9 L
Hct 35.2 L
Plt Count 259
Vital Signs:
Vital Signs
Temp Pulse Resp BP Pulse Ox
98.6 F 97 20 118/74 96
07/20/25 08:05 07/20/25 08:05 07/20/25 08:05 07/20/25 08:05 07/20/25 08:05
I&O
07/19/25 07/20/25 07/21/25
06:59 06:59 06:59
Intake Total 4312.2 / 4312.2 1295 / 1295
Output Total 3450 / 3450 3325 / 3325
Balance 862.2 / 862.2 -2029 /
[2025-07-20] MEDS: CRESTOR 20 MG PO (09:16)
[2025-07-20] MEDS: CORTEF 20 MG PO (09:16)
[2025-07-20] MEDS: PROTONIX IV 40 MG IV ×2 (09:17→20:59)
[2025-07-20] MEDS: PLAVIX 75 MG PO (09:17)
[2025-07-20] MEDS: LASIX 20 MG PO (09:17)
[2025-07-20] MEDS: ELIQUIS 5 MG PO (09:17)
[2025-07-20] MEDS: NSS (PRESERVATIVE FREE) 10 ML IV ×2 (09:17→21:00)
[2025-07-20] MEDS: TOPROL XL 25 MG PO ×2 (09:17→20:58)
[2025-07-20] MEDS: DESENEX/MITRAZOL/ZEASORB 1 APPLIC TOPICAL (09:18)
[2025-07-20] MEDS: NOVOLOG FLEXPEN-LOW RESISTANCE SC ×3 (09:18→21:33)
--- NOTE | 2025-07-20 09:34 | W.PN.ID1 ---
Date of Service
Date of Service: July 20, 2025
Today's Communication
Continue antibiotics.
Assessment / Plan
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
A-fib with RVR.
GI bleed
Leukocytosis
C. difficile antigen (+) / toxin (-)
Diarrhea
Lactic acidosis
Aortic Stenosis
Hypertension
HFpEF
Paroxysmal Atrial Fibrillation
DM-II
Panhypopituitarism (Rathke's Cleft Cyst)
Hypothyroidism
Adrenal Insufficiency
Recurrent UTIs
Diverticular Disease
Recommendations:
Continue Zosyn 3.375 gm IV q.6 h
Continue oral vancomycin
Leukocytosis persist today. Not clear whether to underlying abdominal process or steroids (hydrocortisone 20 mg daily)
Monitor white count and temperature curve.
May need additional abdominal imaging if white count continues to trend up or abdominal pain persists.
Continue with supportive measures.
����������������������������������������������������������
Chief Complaint
-: Leukocytosis, Clinical Sepsis and C-diff (colonization)
Subjective / Review of Systems
Patient seen and examined. Reports ongoing abdominal discomfort today. Still with some loose stool. Reports tolerated liquids yesterday.
Review of Systems: No Fever
Vital Signs / Physical Exam
Vital Signs
Vital Signs
Temp Pulse Resp BP Pulse Ox
98.6 F 97 20 118/74 96
07/20/25 08:05 07/20/25 08:05 07/20/25 08:05 07/20/25 08:05 07/20/25 08:05
Physical Exam
Constitutional: No Acute Distress and Chronically Ill
Cardiovascular: Regular Rate and S1/S2; Negative Murmur or Rub
Pulmonary: Clear and Symmetric; Negative Wheezes or Rales
Gastrointestinal: Soft, Non Tender, Non Distended and Decreased Bowel Sounds
Skin: Warm and Dry; Negative Rash or Jaundice
Neurological: Awake
Psychological: Calm
Objective Data
Lab Data
Lab Results
07/20/25 06:43
07/19/25 04:20
PT 19.5 Sec (11.4-14.6) H 07/17/25 07:20
INR 1.62 07/17/25 07:20
APTT Cancelled 07/18/25 22:00
Estimated Creat Clear 88 ml/min 07/19/25 04:20
Lactic Acid 1.9 mmol/L (0.7-2.0) 07/13/25 04:35
Total Bilirubin 1.0 mg/dl (0.2-1.3) 07/16/25 15:10
AST 15 U/L (14-36) 07/16/25 15:10
ALT < 10 U/L (0-35) 07/16/25 15:10
Alkaline Phosphatase 59 U/L (38-126) 07/16/25 15:10
Most recent labs reviewed.
Micro Results:
07/12/25 17:06 Blood Culture - Final
Blood/Venous No Growth - Final Report
07/11/25 19:37 Blood Culture - Final
Blood/Venous No Growth - Final Report
07/11/25 19:37 Blood Culture - Final
Blood/Venous No Growth - Final Report
07/12/25 11:37 Salmonella/Shigella Culture - Final
Feces/Stool No Salmonella, Shigella, Aeromonas or Plesiomonas species
isolated.
Campylobacter Culture - Final
No Campylobacter species isolated.
- Final
NO YERSINIA SPECIES ISOLATED
Shiga Toxin Test - Final
No E. coli Shiga Toxin 1 or 2 detected.
Stool Leukocytes - Final
07/12/25 11:37 Cryptosporidium/Giardia - Final
Feces/Stool Negative for Cryptosporidium and/or Giardia Lamblia
antigens.
C. difficile GDH Antigen & Toxins - Final
C. difficile antigen positive, toxin negative.
Clostridium difficile present, but toxin not detected.
Patient may be a carrier, colonized with nontoxinogenic
strain or the level of toxin in sample is below detection
limits. This information should be used in conjunction with
the patient's clinical history.
- Final
Negative for Norovirus GI and GII.
Imaging:
07/16/2025 CT abdomen/pelvis angio: severe acute small bowel ischemia with pneumatosis is noted. Moderate mesenteric edema, and small volume ascites noted. There is complete occlusion of the superior mesenteric artery. Severe calcific
atherosclerotic plaque in the abdominal aorta and iliac arteries. Moderate diverticulosis in the descending colon. Please see full dictation for additional detail.
07/11/2025 CT abdomen/pelvis without contrast: evaluation is limited without intravenous or oral contrast. No gross focal intrinsic abnormality of the unopacified liver, spleen, pancreas, kidneys or adrenal glands. No significant perinephric
stranding. Small gallstones are seen within a borderline prominent gallbladder. No biliary tract dilatation. Evaluation of the intestinal tract is markedly limited, but no intestinal obstruction or free air is noted. Please see full dictation
for additional detail.
--- NOTE | 2025-07-20 09:47 | W.PN.GS2 ---
Addendum entered and electronically signed by Mani Chaudhari MD 07/20/25 16:21:
Lactate normal. Vital normals. CT demonstrates continued moderate bowel wall thickening as well as mesentery stranding of the cecum and terminal ileum. Given her rising WBC as well as continued level of discomfort a smoldering level of ischemia
remains in the differential. With her current stability and normal lactate would continue to monitor closely with antibiotics and bowel rest. This will also allow for washout of her Eliquis. Would hold Eliquis and transition back to a heparin
drip, hospitalist updated. Continue to monitor closely.
Original Note:
Today's Communication / Plan
-
-- Lactate
-- CT Abdomen/Pelvis with PO and IV contrast
-- NPO until CT resulted, pending results can advance back to fulls
Assessment / Plan
-
Patient is a 69 yo F p/w acute mesenteric ischemia
POD #4 status post diagnostic laparoscopy with bowel edema but no advanced/irreversible ischemia
POD #4 status post angiogram, angioplasty and SMA stent placement
AFVSS
Labs notable for elevated WBC, stable Hb, normal electrolytes and renal function
Continued level of abdominal discomfort, does not appear to be significantly worsened post-revascularization procedure. Continued loose stools, no harvey blood and stable Hb. Uncertain what to exactly make of her elevated WBC, possibly related to
steroids; however, given her prior history continue bowel ischemia certainly needs to be ruled out. Check a lactate. Plan for a CT of the abdomen pelvis with oral and IV contrast. All questions answered.
Plan:
-- Lactate
-- CT Abdomen/Pelvis with PO and IV contrast
-- NPO until CT resulted, pending results can advance back to fulls
-- Abx: PO Vancomycin and Zosyn
-- Anticoagulation: Eliquis and Plavix
-- Medical management as per primary
Subjective Data
-
Date of Service: July 20, 2025
Reports continued abdominal discomfort. States that this is stable over the past several days. states that she has had times of improvement and worsening. Intermittent nausea, but no vomiting. Pain worsened with PO intake. Fecal
management system in place without harvey bloody output. Afebrile.
Objective Data
-
Intake and Output
07/19/25 07/20/25 07/21/25
06:59 06:59 06:59
Intake Total 4312.2 / 4312.2 1295 / 1295
Output Total 3450 / 3450 3325 / 3325
Balance 862.2 / 862.2 -2029 /
Intake:
Oral fluids 2440 / 2440 1160 / 1160
IV fluids (Total) 833 / 833
D5/0.45%NSS with KCL 20 MEQ 20 450 / 450
meq In 1,000 ml @ 75 mls/hr IV
.[id number] TAMMIE Rx#:[id number]
Heparin 158 / 158
Nss 1,000 ml @ 75 mls/hr IV . 225 / 225
[id number] TAMMIE Rx#:[id number]
IV piggybacks 1039.2 / 1039.2 75 / 75
Fecal management system 60 / 60
irrigation (mL)
Rectum 60 / 60
Output:
Liquid stool amount 850 / 850 2200 / 2200
Rectum 850 / 850 2200 / 2200
Urine, Voided 2600 / 2600
Straight cath output 1125 / 1125
Other:
How many times incontinent 2
MODERATE amount urine
How many times incontinent 1
SATURATED amount urine
Number of unmeasured liquid
stools
Rectum 1
Vital Signs
Temp Pulse Resp BP Pulse Ox
98.6 F 97 20 118/74 96
07/20/25 08:05 07/20/25 08:05 07/20/25 08:05 07/20/25 08:05 07/20/25 08:05
Lab Results
07/20/25 06:43
07/19/25 04:20
Calcium 7.6 mg/dl (8.4-10.2) L 07/19/25 04:20
Phosphorus 2.6 mg/dl (2.5-4.5) 07/19/25 04:20
Magnesium 1.4 mg/dl (1.6-2.3) L 07/19/25 04:20
Total Bilirubin 1.0 mg/dl (0.2-1.3) 07/16/25 15:10
Direct Bilirubin 0.7 mg/dl (0.0-0.4) H 07/16/25 15:10
AST 15 U/L (14-36) 07/16/25 15:10
ALT < 10 U/L (0-35) 07/16/25 15:10
Alkaline Phosphatase 59 U/L (38-126) 07/16/25 15:10
Total Protein 5.3 g/dl (6.3-8.2) L 07/16/25 15:10
Albumin 2.7 g/dl (3.5-5.0) L 07/16/25 15:10
Physical Exam
-
Gen: NAD, weak
Abd: Soft, mild/moderate tenderness diffusely, mild distension/obese, no guarding or rebound, prior incisions c/d/i - no erythema, ecchymosis or drainage
Patient has a tidwell catheter: Yes
Patient has a central line: No
[2025-07-20] MEDS: MAGNESIUM SULFATE 100 IV (09:48)
[2025-07-20] MEDS: FLOMAX 0.4 MG PO (09:48)
[2025-07-20] MEDS: OMNIPAQUE 50 ML PO (10:17)
--- NOTE | 2025-07-20 10:23 | VNURNOTE ---
Home Health Liaison met with patient and spouse at bedside to discuss [facility] nurse/therapy, visits, schedule and homebound status. They are familiar with [facility] services. They are both agreeable and understand that visits at home will be 2-3 x
per week to assess and teach medical management. They aware that [facility] will contact them for start of care in 1-2 days after discharge from .
[facility] referral accepted in [facility].
Spouse and pt are aware that DC plan may change to SNF if recommended w/ PT/OT evals. Liaison will continue to follow.
[2025-07-20 11:29] LABS: Urine Character Slightly Cloudy (Clear)
[2025-07-20 12:10] LABS: Urine White Cell 50-60 /HPF (0-5)
[2025-07-20 12:21] LABS: Glucose - Point of Care 159 mg/dl (70-99)
[2025-07-20] MEDS: TIGAN 200 MG IM ×2 (12:28→23:08)
--- NOTE | 2025-07-20 14:11 | W.PN.ONC2 ---
Today's Communication / Plan
-
resumption of AC/AP for cardiac hx based on cardiology/vascular surgery/GI risk benefit -currently on apixaban and plavix
no contraindication for DOAC with negative anticardiolipin antibody and beta 2 glycoprotein
at bedside provided updates and questions answered
no further inpatient hematology recommendtions -hematology will sign off -please reach out with any further questions or concerns
Impression
Impression
p/w ab pain,dark emesis, & diarrhea
occlusion SMA, small bowel ischemia, prior sigmoidectomy -s/p emergent intravascular lithotripsy to SMA + balloon angioplasty and stenting of proximal SMA 07/16-anticardiolipin antibody and beta 2 glycoprotein are negative
ABLA/GIB
s/p TCAR at [facility]
acute on chronic normocytic anemia -chronic anemia with Hgb ~11g/dL noted 2023. iron studies c/w AOCD. Less likely hemolysis with normal LFTs & LDH, JUSTIN negative. No B12 or folate deficiency
Atrial fibrillation on DOAC
Reactive leukocytosis (neutrophilia)
Aortic stenosis s/p AVR
CVA
CHF
panhypopituitarism/Adrenal insufficiency/hypothyroid
c.diff ag +/ toxin negative
Plan
Plan
resumption of AC/AP for cardiac hx based on cardiology/vascular surgery/GI risk benefit -curently on apixaban and plavix
on PPI
PO Vanco & IVabx -ID following
anticardiolipin antibody and beta 2 glycoprotein are negative
transfuse Hgb < 7 or as needed for sxs anemia
Subjective/Objective
Subjective
no new complaints
Vital Signs:
Vital Signs
Temp Pulse Resp BP Pulse Ox
99.3 F 102 24 144/87 97
07/20/25 11:15 07/20/25 11:15 07/20/25 11:15 07/20/25 11:15 07/20/25 11:15
Lab Results:
Laboratory Data
WBC 20.3 10^3/uL (4.8-10.8) H 07/20/25 06:43
Hgb 11.9 g/dL (12.0-16.0) L 07/20/25 06:43
Plt Count 259 10^3/uL (130-400) 07/20/25 06:43
PT 19.5 Sec (11.4-14.6) H 07/17/25 07:20
INR 1.62 07/17/25 07:20
APTT Cancelled 07/18/25 22:00
eGFR > 60.00 07/19/25 04:20
Physical Exam
HEENT: Moist Mucous Membranes; No Jaundice
Pulmonary: Other (unlabored)
Extremities: Pulses Present
[2025-07-20] MEDS: DILAUDID 0.25 MG IV (14:52)
--- NOTE | 2025-07-20 16:15 | CM ---
PT OT ordered but has not seen patient yet.
Pt has had [facility] HX .
PLAN PT OT needed for dc planning
[2025-07-20 16:42] LABS: Glucose - Point of Care 171 mg/dl (70-99)
[2025-07-20] MEDS: NOVOLOG FLEXPEN-LOW RESISTANCE 1 UNITS SC (17:16)
[2025-07-20] MEDS: ELIQUIS PO (17:28)
--- NOTE | 2025-07-20 20:32 | W.PN.UPDATE ---
Update Note
Progress Note Update
0800 Per General Surgery, Eliquis is stopped, Orders for Heparin drip placed.
[2025-07-20 21:15] LABS: Glucose - Point of Care 119 mg/dl (70-99)
[2025-07-20 21:53] LABS: Hematocrit 34.4 % (37.0-47.0); Hemoglobin 11.8 g/dL (12.0-16.0); Mean Corp Hgb Conc. 34.3 g/dL (33.0-37.0); Mean Corpuscular Volume 85.8 fL (81.0-99.0); Platelet Count 232 10^3/uL (130-400); Red Cell Dist. Width 18.2 % (11.5-14.5)
[2025-07-20 22:08] LABS: APTT 39.8 Sec (23.4-35.0)
[2025-07-20] MEDS: HEPARIN 25000 UNITS/250 ML IV (22:30)
[2025-07-21] VITALS (29 sets, daily range): BP systolic 76–147; BP diastolic 50–94; BMI 29.5
[2025-07-21] MEDS: ZOSYN 50 IV ×5 (00:02→23:49)
[2025-07-21] MEDS: DILAUDID 0.25 MG IV ×2 (01:55→12:54)
[2025-07-21 02:10] LABS: Anticoagulant Med Neutralizati Hepzyme (Not Performed); Neutralized dRVTT Screen Ratio 1.34 (<=1.20); Prothrombin Time 18.2 s (12.0-15.5); dRVTT 1.1 Mix Ratio 1.12 (<=1.20); dRVTT Confirmation Ratio 0.81 (<=1.20); dRVTT Screen Ratio 1.35 (<=1.20)
--- NOTE | 2025-07-21 02:36 | DOWNTIME ---
There was a [employer] Downtime on 07/21/2025 from 0100 to 07/21/2025 at 0215. Downtime documentation of patient's care, including medication administrations, has been reconciled in the electronic record per guidelines. Refer to the
patient's paper chart under the miscellaneous tab to see printed paper medication records and downtime forms.
[2025-07-21] MEDS: SYNTHROID 75 MCG PO (05:57)
[2025-07-21] MEDS: FIRVANQ 125 MG PO ×5 (05:58→23:50)
[2025-07-21 06:04] LABS: APTT 164.5 Sec (23.4-35.0)
[2025-07-21 07:25] LABS: Hematocrit 36.3 % (37.0-47.0); Hemoglobin 12.3 g/dL (12.0-16.0); Mean Corp Hgb Conc. 33.9 g/dL (33.0-37.0); Mean Corpuscular Volume 86.8 fL (81.0-99.0); Platelet Count 222 10^3/uL (130-400); Red Cell Dist. Width 18.5 % (11.5-14.5)
[2025-07-21 07:49] LABS: Glucose - Point of Care 131 mg/dl (70-99)
[2025-07-21] MEDS: NOVOLOG FLEXPEN-LOW RESISTANCE SC ×2 (07:54→17:26)
[2025-07-21 08:04] LABS: ALT (SGPT) < 10 U/L (0-35); AST (SGOT) 16 U/L (14-36); Albumin 2.4 g/dl (3.5-5.0); Alkaline Phosphatase 74 U/L (38-126); Blood Urea Nitrogen 9 mg/dl (7-17); Calcium 7.6 mg/dl (8.4-10.2); Carbon Dioxide 19 mmol/L (22-30); Chloride 102 mmol/L (98-107); Estimated Creatinine Clearance 58 ml/min; Glucose 100 mg/dl (70-99); Potassium 2.9 mmol/L (3.5-5.1); Sodium 129 mmol/L (135-145); Total Protein 4.7 g/dl (6.3-8.2); eGFR > 60.00
[2025-07-21] MEDS: NSS 1000 IV ×3 (09:13→23:48)
[2025-07-21] MEDS: NSS (PRESERVATIVE FREE) 10 ML IV ×2 (09:18→20:07)
[2025-07-21] MEDS: PROTONIX IV 40 MG IV ×2 (09:18→20:06)
--- NOTE | 2025-07-21 09:18 | W.PN.HOSP.TC ---
Today's Communication/Plan
-
Will need TPN, f/w surgery recommendations
Assessment / Plan
Assessment / Plan
HPI: 69y F with PMH significant for s/p BioAVR, post-op CVA and subsequent hospitalization for CHF who presents to ED complaining of N/V/D since last PM.
Sepsis POA, she met criteria of sepsis on admission. Initial Dx was acute infectious gastroenteritis, Lactic acidosis
Her symptoms did not improve, CT angio was done when her kidney function back to normal and that showed ischemic bowel. In OR, no bowel resection was needed, at same time, vascular did intravascular lithotripsy to SMA, balloon angioplasty with
stenting proximal superior mesenteric artery. Recommended to continue to treat as infection gastroenteritis after OR.
- Lactic acidosis resolved.
- Stool studies positive for C. difficile antigen, negative for toxin
- Appreciate ID input, continue IV Zosyn, oral vancomycin
Severe acute small bowel ischemia secondary to complete occlusion of the SMA artery with severe underlying PAD
- Urgent consult placed to vascular surgery and general surgery
- Last dose of Eliquis and Plavix 07/15
- Appreciate vascular surgery input, s/p emergent intravascular lithotripsy to SMA + balloon angioplasty and stenting of proximal SMA 07/16
- Change IV heparin drip to Eliquis, continue Plavix but now changed back to IV heparin gtt
- Vascular surgery has signed off, follow-up in the office in 2 weeks
- Appreciate general surgery input, NG tube removed 07/18, started on clears but she started to have N/V/Pain.
Repeat CT 07/20 showed continued moderate bowel wall thickening as well as mesentery stranding of the cecum and terminal ileum. d/w surgery, positive small ischemic changes. Recommended to change to IV Heparin gtt, NPO. Normal Lactic acid, still
leukocytosis. Started on IVF, will request TPN.
Fecal management system, consulted wound care
#Hemorrhagic shock
- Resolved
Acute urinary retention
encourage ambulation, bladder scan protocol
Flomax
Episode of SVT
c/w BB
d/w agile test lead.
Worsening anemia, due to sepsis, acute blood loss, and anemia of chronic disease
- Appreciate hematology input, due to sepsis, acute blood loss, mild hemolysis, and anemia of chronic disease
- Status post 4 units packed red blood cells, 2 units of FFP on 07/16
-transfuse as needed
Acute toxic metabolic encephalopathy
- Due to sepsis, resolved.
Hypomagnesemia
Hypokalemia
Coffee-ground emesis
- Started on Protonix 40 mg IV twice daily
Paroxysmal Atrial Fibrillation with rapid ventricular response
- Due to sepsis. Change IV heparin drip to Eliquis
- Appreciate cardiology input, converted to normal sinus rhythm s/p diltiazem drip
- Change IV metoprolol back to her home dose of Toprol XL 25 mg BID
Aortic Stenosis s/p BioAVR
Mild acute on Chronic HFpEF
- Stable. No evidence of volume overload on exam.
- Hold Farxiga
- Give 1 dose of Lasix 40 mg IV x 1 for edema, resumed home Lasix 20 mg p.o. daily
S/p CVA
- CVA POD #1 after AVR. Transferred to [place] for TCAR.
- No new neurologic deficits.
- Continue Plavix
PANTERA
- Likely due to dehydration +/- Bactrim use / med effect
Resolved
Hypophosphatemia
Hypomagnesemia
Hyponatremia
Hypokalemia
- Replete as needed
Prolonged QTc
Mild
- Continue Tigan IM as needed
Panhypopituitarism
Adrenal Insufficiency
Hypothyroidism
- Patient maintained on hydrocortisone daily.
- Given acute illness, hypotension, etc
- Change back po hydrocortisone
- Continue current T4 replacement
DM-II
- Hemoglobin A1c 5.7. Hold PO metformin acutely.
- Follow glucose and cover with SSI as needed - especially on higher dose steroids.
Frequent UTIs
- UA not suggestive of UTI at present.
- Just completed 3 day course of Bactrim on .
- Continue methenamine for prevention and monitor for any symptoms.
DVT Prophylaxis: Change IV heparin drip to Eliquis
Code Status: Full
Total time spent to see the patient, examine the patient, review data and lab results, discuss treatment plan with patient, nursing staff around 55 minutes
Physical Exam
General: No acute distress, tired looking
HEENT: Normocephalic, Atraumatic, EOMI, MMM
Respiratory: Clear to Auscultation bilaterally
Cardiac: Normal S1/S2, RRR
GI: Soft, not distended, mild tenderness diffusely
Incisions clean/dry/intact
Extremities: No Clubbing, Cyanosis
Moderate edema noted
Neuro: Confusion resolved, AAOX3, followed commands.
Psych : calm but feels discouraged.
Anticipated Discharge: > 48 hours
Subjective/Interval History
-
Date of Service: July 21, 2025
No nausea this morning
less abdominal discomfort
Objective Data
-
Labs:
Laboratory Results
07/20/25 07/21/25 07/21/25
21:44 05:40 05:41
WBC 26.8 H 24.9 H
Hgb 11.8 L 12.3
Hct 34.4 L 36.3 L
Plt Count 232 222
APTT 39.8 H 164.5 H*
Sodium 129 L D
Potassium 2.9 L
Chloride 102
Carbon Dioxide 19 L
BUN 9
Creatinine 0.9
Glucose 100 H
Calcium 7.6 L
Total Bilirubin 0.9
AST 16
ALT < 10
Alkaline Phosphatase 74
07/21/25
13:00
WBC
Hgb
Hct
Plt Count
APTT Pending
Sodium
Potassium
Chloride
Carbon Dioxide
BUN
Creatinine
Glucose
Calcium
Total Bilirubin
AST
ALT
Alkaline Phosphatase
Vital Signs:
Vital Signs
Temp Pulse Resp BP Pulse Ox
97.8 F 103 17 114/60 95
07/21/25 07:16 07/21/25 07:16 07/21/25 07:16 07/21/25 07:16 07/21/25 07:16
I&O
07/20/25 07/21/25 07/22/25
06:59 06:59 06:59
Intake Total 1295 / 1295 240 / 240
Output Total 3325 / 3325 830 / 830
Balance -2030 / -2030 -590 / -590
[2025-07-21] MEDS: KCL 270 MEQ IV ×2 (09:21→18:01)
[2025-07-21] MEDS: CRESTOR 20 MG PO (10:00)
[2025-07-21] MEDS: CORTEF 20 MG PO (10:00)
[2025-07-21] MEDS: TOPROL XL 25 MG PO (10:01)
[2025-07-21] MEDS: LOTRIMIN 1% CREAM TOPICAL ×2 (10:02→19:47)
[2025-07-21] MEDS: PLAVIX PO (10:28)
--- NOTE | 2025-07-21 11:12 | W.PN.GS2 ---
Addendum entered and electronically signed by Terrell Castaneda MD 07/21/25 12:50:
Lactic acid improved
Addendum entered and electronically signed by Terrell Castaneda MD 07/21/25 11:53:
Will initiate TPN given poor intake and n/v
Original Note:
Today's Communication / Plan
-
NPO, sips and cips
hep gtt
check lactate
serial abd exams
Assessment / Plan
-
Patient is a 69 yo F p/w acute mesenteric ischemia
POD #5 status post diagnostic laparoscopy with bowel edema but no advanced/irreversible ischemia
POD #5 status post angiogram, angioplasty and SMA stent placement
AFVSS
Labs notable for elevated WBC (trending down), stable Hb, normal electrolytes and renal function
Exam reassuring, no signs of peritonitis
Scant bloody coating around solid BM the am after starting hep gtt overnight; stable Hb. WBC improving. Lactate normalized yesterday. CT yesterday showing improved possible pneumatosis, no free air, no PV gas. N/V overnight.
Plan:
-- Re-check lactate
-- NPO for today given n/v overnight, sips and chips for comfort
-- Abx: PO Vancomycin and Zosyn
-- Anticoagulation: back on hep gtt in case of need for OR (not currently planned)
-- Medical management as per primary
Subjective Data
-
Date of Service: July 21, 2025
Vomiting overnight, some blood coating solid BM this am, feels 'the same,' presently denies nausea; urinary retention requiring st cath
Objective Data
-
Intake and Output
07/20/25 07/21/25 07/22/25
06:59 06:59 06:59
Intake Total 1295 / 1295 240 / 240
Output Total 3325 / 3325 830 / 830
Balance -2030 / -2030 -590 / -590
Intake:
Oral fluids 1160 / 1160 240 / 240
IV piggybacks 75 / 75
Fecal management system 60 / 60
irrigation (mL)
Rectum 60 / 60
Output:
Liquid stool amount 2200 / 2200
Rectum 2200 / 2200
Urine, Voided 400 / 400
Straight cath output 1125 / 1125 430 / 430
Vital Signs
Temp Pulse Resp BP Pulse Ox
98.4 F 96 17 119/65 97
07/21/25 11:06 07/21/25 11:06 07/21/25 11:06 07/21/25 11:06 07/21/25 11:06
Lab Results
07/21/25 05:40
07/21/25 05:40
Calcium 7.6 mg/dl (8.4-10.2) L 07/21/25 05:40
Phosphorus 2.6 mg/dl (2.5-4.5) 07/19/25 04:20
Magnesium 1.4 mg/dl (1.6-2.3) L 07/19/25 04:20
Total Bilirubin 0.9 mg/dl (0.2-1.3) 07/21/25 05:40
Direct Bilirubin 0.7 mg/dl (0.0-0.4) H 07/16/25 15:10
AST 16 U/L (14-36) 07/21/25 05:40
ALT < 10 U/L (0-35) 07/21/25 05:40
Alkaline Phosphatase 74 U/L (38-126) 07/21/25 05:40
Total Protein 4.7 g/dl (6.3-8.2) L 07/21/25 05:40
Albumin 2.4 g/dl (3.5-5.0) L 07/21/25 05:40
Physical Exam
-
Gen: NAD
Abd: soft, no tt light perc, moderate ttp, no guarding
--- NOTE | 2025-07-21 11:35 | WOUNDNOTE ---
RIGHT UPPER MEDIAL ARM
--- NOTE | 2025-07-21 11:36 | WOUNDNOTE ---
LEFT UPPER MEDIAL ARM
--- NOTE | 2025-07-21 11:36 | CM ---
Addendum entered by Dahlia Cadet 07/21/25 15:11:
Patient transferred to ICU today following rapid response.
Original Note:
Patient pending PT/OT assessment to clarify level of care needed at discharge, currently patient referral to VN is open. CM will continue to follow for discharge planning needs
Plan; SNF vs home with VN pending medical treatment plan/assessments.
[2025-07-21 11:41] LABS: Glucose - Point of Care 153 mg/dl (70-99)
--- NOTE | 2025-07-21 11:51 | W.PN.ID1 ---
Date of Service
Date of Service: July 21, 2025
Today's Communication
Continue antibiotics.
Assessment / Plan
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
A-fib with RVR.
GI bleed
Leukocytosis
C. difficile antigen (+) / toxin (-)
Diarrhea
Lactic acidosis
Aortic Stenosis
Hypertension
HFpEF
Paroxysmal Atrial Fibrillation
DM-II
Panhypopituitarism (Rathke's Cleft Cyst)
Hypothyroidism
Adrenal Insufficiency
Recurrent UTIs
Diverticular Disease
Recommendations:
Continue Zosyn 3.375 gm IV q.6 h
Continue oral vancomycin
Leukocytosis persist today. Not clear whether to underlying abdominal process or steroids (hydrocortisone 20 mg daily)
Monitor white count and temperature curve. Lactate to be repeated.
Continue with supportive measures.
����������������������������������������������������������
Chief Complaint
-: Leukocytosis, Clinical Sepsis and C-diff (colonization)
Subjective / Review of Systems
Patient seen and examined. Denies abdominal pain. Denies fevers or chills. Nausea and vomiting noted overnight.
Vital Signs / Physical Exam
Vital Signs
Vital Signs
Temp Pulse Resp BP Pulse Ox
98.4 F 96 17 119/65 97
07/21/25 11:06 07/21/25 11:06 07/21/25 11:06 07/21/25 11:06 07/21/25 11:06
Physical Exam
Constitutional: No Acute Distress and Chronically Ill
Cardiovascular: Regular Rate and S1/S2; Negative S3/S4
Pulmonary: Clear and Symmetric
Gastrointestinal: Soft, Non Tender, Non Distended, Decreased Bowel Sounds, No Rebound and No Guarding
Extremities: Negative Edema or Cyanosis
Skin: Warm and Dry; Negative Rash or Jaundice
Neurological: Awake
Psychological: Calm
Objective Data
Lab Data
Lab Results
07/21/25 05:40
07/21/25 05:40
PT 19.5 Sec (11.4-14.6) H 07/17/25 07:20
INR 1.62 07/17/25 07:20
APTT 164.5 Sec (23.4-35.0) H* 07/21/25 05:41
Estimated Creat Clear 58 ml/min 07/21/25 05:40
Lactic Acid 1.4 mmol/L (0.7-2.0) 07/20/25 11:36
Total Bilirubin 0.9 mg/dl (0.2-1.3) 07/21/25 05:40
AST 16 U/L (14-36) 07/21/25 05:40
ALT < 10 U/L (0-35) 07/21/25 05:40
Alkaline Phosphatase 74 U/L (38-126) 07/21/25 05:40
Most recent labs reviewed.
Micro Results:
07/12/25 17:06 Blood Culture - Final
Blood/Venous No Growth - Final Report
07/11/25 19:37 Blood Culture - Final
Blood/Venous No Growth - Final Report
07/11/25 19:37 Blood Culture - Final
Blood/Venous No Growth - Final Report
07/12/25 11:37 Salmonella/Shigella Culture - Final
Feces/Stool No Salmonella, Shigella, Aeromonas or Plesiomonas species
isolated.
Campylobacter Culture - Final
No Campylobacter species isolated.
- Final
NO YERSINIA SPECIES ISOLATED
Shiga Toxin Test - Final
No E. coli Shiga Toxin 1 or 2 detected.
Stool Leukocytes - Final
07/12/25 11:37 Cryptosporidium/Giardia - Final
Feces/Stool Negative for Cryptosporidium and/or Giardia Lamblia
antigens.
C. difficile GDH Antigen & Toxins - Final
C. difficile antigen positive, toxin negative.
Clostridium difficile present, but toxin not detected.
Patient may be a carrier, colonized with nontoxinogenic
strain or the level of toxin in sample is below detection
limits. This information should be used in conjunction with
the patient's clinical history.
- Final
Negative for Norovirus GI and GII.
Imaging:
07/16/2025 CT abdomen/pelvis angio: severe acute small bowel ischemia with pneumatosis is noted. Moderate mesenteric edema, and small volume ascites noted. There is complete occlusion of the superior mesenteric artery. Severe calcific
atherosclerotic plaque in the abdominal aorta and iliac arteries. Moderate diverticulosis in the descending colon. Please see full dictation for additional detail.
07/11/2025 CT abdomen/pelvis without contrast: evaluation is limited without intravenous or oral contrast. No gross focal intrinsic abnormality of the unopacified liver, spleen, pancreas, kidneys or adrenal glands. No significant perinephric
stranding. Small gallstones are seen within a borderline prominent gallbladder. No biliary tract dilatation. Evaluation of the intestinal tract is markedly limited, but no intestinal obstruction or free air is noted. Please see full dictation
for additional detail.
[2025-07-21] MEDS: NOVOLOG FLEXPEN-LOW RESISTANCE 1 UNITS SC (12:56)
--- NOTE | 2025-07-21 13:17 | WOUNDNOTE ---
[facility] RN note: Patient's tin MASD looks improved from prior date picture. FMS came out and there was report of loose stool with bloody mucus. Patient c/o discomfort with FMS. She is on IV Heparin. Eamon texted updated/perianal picture to Leigh Ann Wood
for GI service input. Leigh Ann suggested leaving the FMS out and try using an external fecal incontinent pouch and if that is ineffective, to change patient frequently i.e. q 2 hours. Applied a fecal incontinent pouch with stoma paste after cleansing
tin skin with soap and water and application of no sting skin prep. Sacral shaped silicone border foam applied to sacrum. Patient turned to L semi side lying position with help from MAX Burns. Discussed with MAX Turner who will apply an air overlay
mattress. Updated Dr. Ngo re: FMS not recommended at this time. Skin on heels blanchable red. Lower sternal incisional wound cleaning up and is now about .4cm deep, pink with some yellow tissue. Minimal local red skin, scant ss drainage.
--- NOTE | 2025-07-21 13:25 | WOUNDNOTE ---
[facility] RN note: tigomkar texted including wound picture of lower sternal incisional wound to CT PA Lesley Bonilla updating local care with daily foam dressing. Asked if any other wound care wanted. Lesley responded okay with foam dressing. She stated she
would order a surgical bra.
[2025-07-21 13:33] LABS: APTT 111.4 Sec (23.4-35.0)
[2025-07-21 13:46] LABS: ALT (SGPT) < 10 U/L (0-35); AST (SGOT) 14 U/L (14-36); Albumin 2.2 g/dl (3.5-5.0); Alkaline Phosphatase 55 U/L (38-126); Blood Urea Nitrogen 7 mg/dl (7-17); Calcium 6.9 mg/dl (8.4-10.2); Carbon Dioxide 19 mmol/L (22-30); Chloride 103 mmol/L (98-107); Estimated Creatinine Clearance 65 ml/min; Glucose 152 mg/dl (70-99); Magnesium 1.7 mg/dl (1.6-2.3); Potassium 3.6 mmol/L (3.5-5.1); Sodium 126 mmol/L (135-145); Total Protein 4.4 g/dl (6.3-8.2); Triglycerides 153 mg/dl (10-149); eGFR > 60.00
[2025-07-21 13:49] LABS: Glucose - Point of Care 158 mg/dl (70-99)
--- NOTE | 2025-07-21 14:09 | CON.NEURO4 ---
Addendum entered and electronically signed by Vineet Felix MD 07/21/25 16:22:
Studies reviewed.
I have personally examined the patient. I reviewed and agree with the OCCUPATIONAL MEDICINE PHYSICIAN's Note.
My addenda:
Minimally arousable, minimally interactive. No acute distress.
Speech markedly reduced output, hoarse initially.
Follows 1-step requests w/ severe difficulty. No tremor.
Extra-ocular movements grossly intact.
Facial movements full and symmetric. Hearing intact to normal conversational volume.
Normal UE movements bilaterally.
Neck: full ROM.
Chest: no dyspnea
Heart: no JVD
Ext: (-) Clubbing, (-) Cyanosis, (-) Edema
IMPRESSIONS/RECOMMENDATIONS:
Abrupt onset of change in mental status following provision of hydromorphone
Most likely symptoms are due to toxic metabolic encephalopathy
Agree with provision of naloxone
Continue anticoagulation
Check blood work for potential metabolic abnormalities producing symptoms
Provide thiamine for completeness
D/W nursing/physicians
All questions answered.
Will continue to follow as needed.
Original Note:
Documented by User: Gabi Colón NP 07/21/25 16:15
Consultation - Neurology 4
-
CONSULTING PHYSICIAN: Vineet Felix MD
REFERRING PHYSICIAN: Hospitalists/Dr. Ngo
DICTATED BY: MERISSA Alcantara
DATE/TIME OF REQUEST: 07/21/25
DATE/TIME OF CONSULTATION: 07/21/25
Reason for Consultation: Stroke Alert
History of Present Illness:
This is a 69-year-old female who has presented to the hospital on 07/11/25 with nausea, vomiting, and diarrhea. Patient underwent TAVR in May 2025 complicated by aphasia, dysarthria, and left facial drooping on post-op day 2. CTA head/neck at that
time reviewed a string sing in the proximal R ICA and she was transferred to [facility] for R TCAR. She has been on apixaban for Afib and clopidogrel postoperatively. She was also being treated for a UTI as an outpatient. On admission on 07/11/25 imaging was
concerning for small bowel ischemic secondary to SMA occlusion. She underwent emergent intravascular lithotripsy to SMA +balloon angioplasty and stenting of the proximal SMA on 07/16/25. ID is following for sepsis. Patient has been reporting of
severe abdominal pain for the past several days and has been receiving 0.25mg hydromorphone as needed for pain. Today (07/21/25) she received PRN hydromorphone at 1254 today, then one hour later was noted to be obtunded and minimally responsive,
prompting a stroke alert to be activated. CT Head, CTA head/neck, and CT perfusion were obtained and are negative for any acute abnormalities. She is not a candidate for TNK/IAT due to IV heparin infusion, no LVO, and unclear diagnosis. She
subsequently received Narcan and has returned to baseline.
Past Medical History: Afib (apixaban), HTN, HLD, aortic stenosis, R ICA stenosis, NIDDM, hypothyroidism, Rathke's cleft cyst, adrenal insufficiency, frequent UTIs, diverticular disease
Surgical History: TAVR, R TCAR, Pilonidal cyst excision, sigmoidectomy w/ takedown of vesicle-colonic fistula
Family History: Reviewed and noncontributory.
Social History: Former smoker. Former alcohol abuse. No illicit drug use.
Allergies: No known allergies.
Home Medications: See below.
Review of Symptoms:
Per the HPI. I am unable to obtain a complete review of systems�because of patient's inability to provide history.
Physical Exam:
The patient is afebrile, abdomen is nondistended, breathing is unlabored, skin is warm and dry, no edema.
NIH Stroke Scale:
I performed the NIH stroke scale on the patient on 07/21/25 at 1400. The patient scored 18 points on the NIH stroke scale assessment, which were assigned as follows: See below.
Neurologic Examination:
The patient is obtunded. Opens eyes/responds to pain/very loud voice. She does not follow many commands or answer questions appropriately. There is no apparent aphasia or dysarthria. On cranial nerve assessment, pupils are 3 mm bilateral, round and
reactive to light and accommodation. Negative dolls eyes. DIALLO visual medina/EOMs. There is no apparent facial asymmetry. DIALLO hearing. DIALLO Tongue palate. Spontaneously moves 2/5 bilateral arms, 1/5 bilateral legs. DIALLO drift. No involuntary movement
noted. Deep tendon reflexes are 2+ bilateral upper and lower extremities and Babinski is absent bilaterally. DIALLO sensation, double simultaneous, and coordination.
Lab Results: See below.
Neuro Imaging:
1. CT Head 07/21/25: No acute intracranial abnormality noted. ASPECTS Score: 10
2. CTA head/neck 07/21/25: No significant vascular occlusion, aneurysm or dissection. Patent right carotid artery stent. Partially visualized right pleural effusion.
3. CT Perfusion 07/21/25: CBF 0, Tmax 0.
Differentials for the patient's presentation include:
1. Change in mental status likely due to toxic metabolic encephalopathy in the setting of infection and narcotic usage. Low concern for stroke but cannot entirely exclude this possibility.
Patient has the following risk factors for their symptoms: Narcotic usage, infection, heparin drip
IV Tenecteplase/IAT candidacy: She is not a candidate for TNK/IAT due to IV heparin infusion, no LVO, and unclear diagnosis
Recommendations:
-Continue heparin drip.
-Neurological checks per unit guidelines.
-Do not see a role for further neurological imaging at this point.
-Provide patient with a stroke education packet.
Discussed patient care with: Dr. Felix, Dr. Ngo, nursing staff
Vital Signs and Labs
-
Vital Signs and Labs:
Vital Signs
Temp Pulse Resp BP Pulse Ox
97.5 F 96 17 119/65 97
07/21/25 15:11 07/21/25 11:06 07/21/25 11:06 07/21/25 11:06 07/21/25 11:06
Lab Results
07/21/25 05:40
PT Cancelled 07/21/25 14:11
INR Cancelled 07/21/25 14:11
APTT 111.4 Sec (23.4-35.0) H 07/21/25 13:06
Sodium 126 mmol/L (135-145) L 07/21/25 13:06
Potassium 3.6 mmol/L (3.5-5.1) 07/21/25 13:06
BUN 7 mg/dl (7-17) 07/21/25 13:06
Glucose 152 mg/dl (70-99) H 07/21/25 13:06
Calcium 6.9 mg/dl (8.4-10.2) L* 07/21/25 13:06
Phosphorus 3.7 mg/dl (2.5-4.5) 07/21/25 13:06
Vitamin B12 > 1000 pg/ml (239-931) H 07/15/25 10:01
Medications
-
Active Medications
Generic Name Dose Route Start Last Admin
Trade Name Freq PRN Reason Stop Dose Admin
Acetaminophen 650 mg 07/18/25 15:52
Acetaminophen (Oral Solution) 650 Mg/20.3 Ml Cup PO 08/14/25 13:34
Q4HPRN PRN
Mild Pain / Temp > 101
Clopidogrel Bisulfate 75 mg 07/18/25 15:52 07/21/25 10:28
Clopidogrel 75 Mg Tablet PO 08/09/25 07:59 Not Given
DAILY TAMMIE
Clotrimazole 0 applic 07/21/25 09:00 07/21/25 10:02
Clotrimazole 1% (Cream) 30 Gram Tube TOPICAL 08/18/25 08:59 Not Given
BID TAMMIE
Dextrose 12.5 grams 07/11/25 22:27 07/18/25 05:36
Dextrose 50% (0.5 Grams/Ml) 50 Ml Syringe IV 08/08/25 22:26 12.5 grams
[id number] PRN Administration
hypoglycemia
Protocol
Glucagon 1 mg 07/11/25 22:27
Glucagon 1 Mg Vial IM 08/08/25 22:26
PRN PRN
hypoglycemia
Protocol
Hydrocortisone 20 mg 07/18/25 15:52 07/21/25 10:00
Hydrocortisone 10 Mg Tablet PO 08/13/25 07:59 20 mg
On Hold: 07/21/25 15:14 DAILY TAMMIE Administration
Hydrocortisone Sodium Succinate 25 mg 07/21/25 15:15 07/21/25 15:40
Hydrocortisone Sodium Succinate 100 Mg/2 Ml Vial IV 08/18/25 15:14 25 mg
Q6 TAMMIE Administration
Piperacillin Sod/Tazobactam Sod 3.375 gram in 50 mls @ 100 mls/hr 07/16/25 12:00 07/21/25 13:13
Zosyn IV 50 mls
Q6H TAMMIE Administration
Heparin Sodium 25,000 units in 250 mls @ 0 mls/hr 07/20/25 20:30 07/20/25 22:30
Heparin 22173 Units/250 Ml IV 250 mls
PER PROTOCOL TAMIME Administration
Protocol
Per Protocol
Sodium Chloride 1,000 mls @ 150 mls/hr 07/21/25 06:45 07/21/25 09:13
Nss IV 1,000 mls
.Q6H40M TAMMIE Administration
Potassium Chloride 40 meq/ 270 mls @ 67.5 mls/hr 07/21/25 09:00 07/21/25 09:21
Dextrose IV 07/21/25 16:59 270 mls
Q4H TAMMIE Administration
Nutrition (Parenteral) 950 ml in 950 mls @ 40 mls/hr 07/21/25 21:00
Parenteral Nutrition, Central IV 07/22/25 20:59
ONCE@2100 NR
Protocol
Per Protocol
Thiamine HCl 500 mg/ Sodium 255 mls @ 255 mls/hr 07/21/25 16:00 07/21/25 15:46
Chloride IV 07/23/25 08:59 255 mls
Q8 TAMMIE Administration
Insulin Aspart 0 units 07/18/25 22:00 07/21/25 12:56
Insulin Aspart Low Resistance 300 Units/3 Ml Pen.Injctr SC 08/15/25 21:59 1 units
ACHS TAMMIE Administration
Protocol
Levothyroxine Sodium 75 mcg 07/12/25 06:00 07/21/25 05:57
Levothyroxine 75 Mcg Tablet PO 08/09/25 05:59 75 mcg
DAILY @ 0600 TAMMIE Administration
Metoprolol Succinate 25 mg 07/18/25 20:00 07/21/25 10:01
Metoprolol 25 Mg Extended Release Tablet PO 08/15/25 19:59 25 mg
BID TAMMIE Administration
Metoprolol Tartrate 5 mg 07/14/25 14:26 07/14/25 15:18
Metoprolol 5 Mg/5 Ml Vial IV 08/11/25 14:25 5 mg
Q4HPRN PRN Administration
isabelle HR > 120
Miconazole Nitrate 1 applic 07/13/25 05:11 07/20/25 09:18
Miconazole Powder Bottle TOPICAL 08/10/25 05:10 1 applic
BIDPRN PRN Administration
bilat groin
Pantoprazole Sodium 40 mg 07/12/25 08:20 07/21/25 09:18
Pantoprazole Sodium 40 Mg/10 Ml Vial IV 08/09/25 08:19 40 mg
BID TAMMIE Administration
Rosuvastatin Calcium 20 mg 07/18/25 15:52 07/21/25 10:00
Rosuvastatin (Crestor) 20 Mg Tablet PO 08/09/25 07:59 20 mg
DAILY TAMMIE Administration
Sodium Chloride 10 ml 07/12/25 08:20 07/21/25 09:18
Sodium Chloride 0.9% (Preservative Free) 10 Ml Vial IV 08/09/25 08:19 10 ml
BID TAMMIE Administration
Sodium Chloride 0 flush 07/14/25 07:00 07/19/25 02:03
Sodium Chloride 0.9% (Flush) Syringe IV 08/11/25 06:59 3 flush
PER PROTOCOL TAMMIE Administration
Trimethobenzamide HCl 200 mg 07/11/25 22:27 07/20/25 23:08
Trimethobenzamide 200 Mg/2 Ml Vial IM 08/08/25 22:26 200 mg
Q6HPRN PRN Administration
N/V, use first
Vancomycin HCl 125 mg 07/18/25 13:00 07/21/25 12:55
Vancomycin Oral Solution 50 Mg/Ml In Oral Syringe PO 125 mg
Q6 TAMMIE Administration
Home Medications
�Medication �Instructions �Recorded
furosemide 20 mg tablet 20 mg PO DAILY Fluid 03/04/23
retention/Swelling
hydrocortisone 10 mg tablet 20 mg PO DAILY Anti-inflammatory 03/04/23
levothyroxine 75 mcg tablet 75 mcg PO DAILY Thyroid 09/17/24
(Synthroid)
lisinopril 5 mg tablet 10 mg PO DAILY Blood Pressure 05/04/25
pantoprazole 40 mg tablet,delayed 40 mg PO DAILY Gastrointestinal 05/04/25
release Issue
sennosides 8.6 mg tablet (senna) 8.6 mg PO BID PRN constipation 06/08/25
acetaminophen 325 mg tablet 650 mg (2 x 325 mg) PO Q4HPRN PRN 06/12/25
headache, pain, fever #0 tabs
apixaban 5 mg tablet 5 mg PO BID Arrhythmia #60 tabs 06/13/25
metoprolol succinate 25 mg 25 mg PO BID Heart 06/13/25
tablet,extended release 24 hr disease/condition #60 tabs
blood sugar diagnostic (Contour ##100 06/14/25
Next Test Strips)
clopidogrel 75 mg tablet 75 mg PO DAILY Blood clot 06/14/25
prevention/tx #0 tabs
dapagliflozin propanediol 10 mg 10 mg PO DAILY Diabetes #30 tabs 06/14/25
tablet (Farxiga)
lancets 21 gauge (Color Lancets) ##100 06/14/25
metformin 500 mg tablet 500 mg PO BID@0800,1700 Diabetes 06/14/25
#60 tabs
methenamine hippurate 1 gram tablet 1 g PO BID Urinary issue #30 tabs 06/14/25
multivitamin 1 tab PO DAILY Supplement #0 tabs 06/14/25
rosuvastatin 20 mg tablet 20 mg PO DAILY High cholesterol #0 06/14/25
tabs
NIH Stroke Score
Subsequent NIH Scale
Date of Subsequent NIH Scale: 07/21/25
Time of Subsequent NIH Scale: 14:00
NIH Stroke Score
Level of Consciousness: 2 - Obtunded
LOC Questions: 2-Neither correct
LOC Commands: 2-Performs neither correctly
Best Horizontal Gaze: 0-Normal
Visual Medina: 0=Normal, no visual loss
Facial Palsy: 0=Normal, symmetrical
Motor - Right Arm: 3=None vs. gravity
Motor - Left Arm: 3=None vs. gravity
Motor - Right Le-None vs. gravity
Motor - Left Le-None vs. gravity
Limb Ataxia: UN-Amputation/jointfusion
Sensation: 0-Normal
Best Language: 0-No aphasia
Dysarthria: 0-Normal
Extinction and Inattention: 0-No abnormality
NIH Total Score:: 18
Modified Issac (mRS) Score
Modified Pollock Scale (mRS): Moderately severe disability. Unable to attend to bodily needs/walk.
Score: 4
Alteplase Contraindication
Inclusion and Exclusion criteria reviewed: Yes

Documented by User: Vineet Felix MD 07/21/25 16:18
NIH Stroke Score
NIH Stroke Score
NIH Total Score:: 18
Modified Issac (mRS) Score
Score: 4
[2025-07-21 14:40] LABS: INR 1.69; PT 20.4 Sec (11.4-14.6)
--- NOTE | 2025-07-21 14:44 | RR ---
A Rapid Response was called on this patient, please see Rapid Response form.
Rapid response called on pt at 1415 due to decrease responsiveness rapidly. Pt normally ax3, but only responded to painful stimuli. VS 97.7 axillary, 103/56 BP, 85 pulse. EKG taken and blood sugar 158. made aware and presented at bedside with
rapid response team. Pt sent to CT for possible stroke on 4L of O2 and open bolus of NS running through R arm midline. Pt transferred to ICU room 3366-1. Plan of care ongoing.
[2025-07-21] MEDS: NARCAN 0.4 MG IV (14:53)
[2025-07-21] MEDS: NARCAN 1 MG IV (15:00)
--- NOTE | 2025-07-21 15:19 | W.PN.INTV ---
Addendum entered and electronically signed by Tamara Hunter MD 07/21/25 16:01:
Addendum:
Additional lab work resulted.
# Hyponatremia. 126 today. Since patient wakes up with stimulation, clinically not suggestive of non convulsive seizures
- 138 > 129 > 126 over last 48 hrs. ?related to panhypopituitarism
- 3% NS 100 ml bolus stat in view of change in mental status
- Hydrocortisone switched to IV form. Has been on Levothyroxine replacement already
- BMP every 6 hrs, additional 3% as needed. Strict I/O.
- Switch mid-line IV cannula to PICC line, difficult vascular acces
Original Note:
Today's Communication / Plan
Recommendations
- D/c Hydromorphone
- Stat ABG, IV Narcan, IV Thiamine 500 mg q8
- Avoid any sedating medication
- End tidal CO2 monitoring, serial VBG
- Serial exams
- Switch Po Hydrocortisone to 25 mg IV q6 hrs
Assessment
-
Assessment: 69-year-old F with PMHx of HTN, HLD, DM type II, former tobacco use, valvular heart disease, central hypothyroidism, Hx of adrenal insufficiency, colovesical fistula and chronic lower extremity edema who p/w nausea, vomiting and
diarrhea. Initial WBC was 26.3 with Cr 1.9, and lactate 4.2. UA not suggestive of UTI. Blood Cx drawn. Given 2L in ER. ABx started with Zosyn, flagyl and rectal vanc (changed to PO vanc on 07/14). ID was following as well as GI. Heme was
consulted for anemia. CTA A/P on 07/16/2025 showed severe acute small bowel ischemia with complete SMA occlusion, and severe calcific atherosclerotic plaque in the abdominal aorta and iliac arteries. She received multiple PRBC transfusions on 07/16
due to anemia with GI bleed. Due to persistent symptoms of nausea, vomiting and abd pain, pt was recommended to go to OR - on 07/16 she underwent angiogram with SMA angioplasty and stent placement. She was then TRX to ICU for further care and
[employer] services consulted for further management.
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
stenosis + AI, history of hyponatremia associated with adrenal insufficiency, Rathke's cleft cyst, history of UTI, colovesical fistula, history of perirectal abscess, chronic lower extremity edema
07/21. Patient seen in ICU after she was transferred due to altered mental status. Rapid response event was called and patient was noted to be minimally responsive.
Assessment and Plan:
#1. Acute encephalopathy, 07/21. (Rapid response event on the floor, transferred to ICU)
- In the ICU, minimally response initially. Narcan 1 mg given stat, patient more awake, alert and interactive after. Depending upon clinical course, will consider Narcan infusion.
- Stat CT head reviewed. Neurology on case. CT and CTA Head/Neck without acute change
- Stat ABG sent to evaluate for any hypercapnia. 7.42, not suggestive of acidosis or hypercapnia. Lactate normal
- End tidal CO2 monitoring
- Serial neurochecks
- Empiric high dose thiamine since patient has not been taking PO for a while and TPN is scheduled to be started today
- Switch PO Hydrocortisone 20 mg to 25 mg IV q6hrs in view of acute illness.
#2. Acute mesenteric ischemia s/p intravascular lithotripsy to SMA + balloon angioplasty and stenting of proximal SMA (07/16/2025)
- On Plavix and Heparin infusion
- Vascular surgery, hematology/oncology and General surgery on case
- Lactate 07/21 normal, ABG without acidosis. CT A/P 07/20 reviewed. Abdominal exam not suggestive of acute abdomen.
- d/w Surgery service. Plan for continue NPO, initiate TPN
#3. A-fib with RVR - now rate controlled and in sinus rhythm
- On metoprolol and IV heparin drip, cardiology service on case
#4. Hx of severe aortic stenosis s/p bioprosthetic AVR and aortic root enlargement using bovine pericardial patch (OR date: 05/27/2025)
- Hemodynamically stable
#5. Chronic HFpEF not in an acute exacerbation
- Strict input and output monitoring
- Chest x-ray portable
#6. H/o C diff antigen (+) with negative toxin, elevated WBC and concern for intra-abdominal source of infection
- ID service on case. Currently on IV Zosyn and p.o. vancomycin.
#7. Adrenal insufficiency with panhypopituitarism
- Report back to IV hydrocortisone rather than p.o. in view of acute illness
- Continue thyroid replacement
DVT prophylaxis. Currently anticoagulated with heparin drip
GI prophylaxis. IV Protonix
Other chronic medical diagnoses:
#Diarrhea due to mesenteric ischemia
#Lactic acidosis, resolved
#Acute anemia requiring multiple PRBC transfusions
#DM type II
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
Critical Care time 68 mins -- The patient is admitted for acute critical illness for the treatment of vital organ failure and/or prevention of further life-threatening conditions. Total care includes time spent in review of history, physical exam,
medications, hemodynamic/ventilator parameters, laboratory data, imaging and discussion with house staff, pharmacy, respiratory therapy, forest products gatherer, and nursing.
Data:
CT A/P 07/20/2025: Stable moderate bowel wall thickening of the distal ileum and proximal ascending colon. Differential diagnosis includes inflammation, infection and ischemia. Progressed small bowel dilatation. Improved possible pneumatosis. New
mesenteric edema on the right. Resolved mesenteric edema on the left.
Mild free fluid in the pelvis likely reactive. New.
Mild appendiceal dilatation. This may be reactive. Acute appendicitis cannot be excluded. New from 05/04/2025.
Moderate right pleural effusion. Progressed. Small left pleural effusion. Stable.
Mild bibasilar consolidation likely atelectasis. Progressed.
Severe atherosclerotic vascular disease. SMA stent. New
Gallstones. Stable.
Minimally distended bladder. Mild diffuse bladder wall thickening. This can be seen with limited distention. Cystitis and bladder outlet obstruction not excluded. Mild air in the bladder. This can be seen with recent instrumentation or infection
Small pericardial effusion. Progressed.
Moderate hiatal hernia. Stable
ECHO 06/2025: 1. Left ventricular ejection fraction is normal with an ejection fraction of 65 % by Montiel's biplane method of discs.
2. Right ventricular size and systolic function are within normal limits.
3. Well seated, normally functioning Bioprosthetic aortic valve prosthesis.
4. No evidence of pericardial effusion.
5. Compared to the prior echo on 03/09/2025 the aortic valve has been replaced.
Subjective Dataa
Subjective Data
Date of Service:
Date of Service: July 21, 2025
Chief Complaint: [employer] Follow Up
Objective Data
Data Reviewed
Vital Signs / I&O / Oxygen:
Vital Signs
Temp Pulse Resp BP Pulse Ox
97.5 F 96 17 119/65 97
07/21/25 15:11 07/21/25 11:06 07/21/25 11:06 07/21/25 11:06 07/21/25 11:06
Intake and Output
07/20/25 07/21/25 07/22/25
06:59 06:59 06:59
Intake Total 1295 / 1295 240 / 240
Output Total 3325 / 3325 830 / 830
Balance -2030 / -2030 -590 / -590
SaO2 97
Nasal Cannula flow liters per 2
minute
Physical Exam
General: Respiratory Distress (negative), Comfortable, Chills (negative) and Sweats (negative)
HEENT: Normocephalic and Anicteric
Cardiovascular: S1-S2 and Peripheral Edema (+1 lower extremity pitting edema bilaterally)
Respiratory: Wheeze (negative), Crackles (negative), Rhonchi (negative) and Non-Labored Respirations
GI: Soft, Non Distended, Non Tender and Normal Bowel Sounds
Neurology: AO x 3 and Tremors (negative)
Skin: Warm, Dry, Cyanosis (negative) and Jaundice (negative)
Labs/Micro/Reports
Lab Data
07/21/25 05:40
07/21/25 13:06
Laboratory Results
07/20/25 07/21/25 07/21/25
21:44 05:41 13:06
PT 20.4 H
INR 1.69
APTT 39.8 H 164.5 H* 111.4 H
07/21/25
14:11
PT Cancelled
INR Cancelled
APTT
[2025-07-21 15:22] LABS: B.E. -5.2 mmol/L; HCO3 18.2 mmol/L (21-28); O2 Saturation % 99.6 % (94-98); PCO2 28 mmHg (32-35); PO2 230 mmHg (83-108)
[2025-07-21] MEDS: SOLU-CORTEF 25 MG IV ×3 (15:40→23:49)
--- NOTE | 2025-07-21 15:41 | W.PN.UPDATE ---
Update Note
Progress Note Update
Addendum
Patient was showing depressed mentation and hard to wake up
I examined the patient, she was able to mumble a few words and raise her upper extremities but she is definitely more lethargic than earlier
Vital signs are stable. Blood glucose is normal
No hypoxia.
The patient on bolus of IV fluid and oxygen supplementation.
EKG with a chronic right bundle branch block
Will rule out acute structural
Holding heparin with therapeutic PTT until rule out hemorrhage/
Patient was taken down to CAT scan department to have CAT scan with CTA of head and neck
No acute changes seen on immediate interpretation of the images
Possibility of metabolic encephalopathy although patient did not receive significant dosage of Dilaudid in last 24 hours.
With seems to have clinical improvement regarding intestinal ischemia with even lower lactic acid than yesterday. And no distention or significant change to abdominal tenderness on exam
Will moved to ICU for close observation
Will do stress dose of IV corticosteroids due to history of underlying adrenal insufficiency
Will monitor and follow
Blood work is ordered
Appreciate ICU/surgery/neurology help
[2025-07-21] MEDS: THIAMINE INJECTION 255 MG IV ×2 (15:46→23:49)
[2025-07-21 17:21] LABS: Glucose - Point of Care 139 mg/dl (70-99)
[2025-07-21 17:33] LABS: Venous Blood Gas B.E. -6.1 mmol/L (-4 to +4); Venous Blood Gas O2 Sat % 99.5 %
[2025-07-21 17:34] LABS: Venous Blood Gas O2 Therapy ROOM AIR O2
[2025-07-21 17:44] LABS: Blood Urea Nitrogen 7 mg/dl (7-17); Calcium 7.4 mg/dl (8.4-10.2); Carbon Dioxide 20 mmol/L (22-30); Chloride 106 mmol/L (98-107); Estimated Creatinine Clearance 75 ml/min; Glucose 129 mg/dl (70-99); Potassium 3.5 mmol/L (3.5-5.1); Sodium 129 mmol/L (135-145); eGFR > 60.00
[2025-07-21] MEDS: HEPARIN 25000 UNITS/250 ML IV (18:36)
--- NOTE | 2025-07-21 18:50 | PTCARENOTE ---
received pt at 1445 from rapid response with change in LOC , she had a CT of head , neurology at bedside , search consultant at bedside , pt difficult to aroused , [place] pupils , sluggish , shallow resp rate , she occasionally was able to awaken and
follow simple commands but returned to lethargic state , she was placed on 4L NC with sat of 100% , end tidal C02 15-22 , ABG 7.42 /28/236/18.2 , she had 0.4 mg of IV Narcan with little response at 1453 then additional 1.0 mg at 1500 with good
results . she was awake and conversant with medical l staff , she had a picc line placed for IV access , labs sent chemistry review with search consultant , heparin restarted as ordered
[2025-07-21 18:51] LABS: Folate 18.6 ng/ml (2.76-20); Vitamin B12 930 pg/ml (239-931)
[2025-07-21] MEDS: NSS 250 IV (19:23)
--- NOTE | 2025-07-21 19:23 | PTCARENOTE ---
SBP reading mid 70s-low 80s, BDoughertyNP aware, 250cc NSS bolus x 1 per GARNETTER.
[2025-07-21] MEDS: TOPROL XL PO (19:46)
[2025-07-21] MEDS: Parenteral Nutrition, Central 950 IV (20:07)
[2025-07-21] MEDS: NOVOLOG FLEXPEN-LOW RESISTANCE 2 UNITS SC (23:48)
[2025-07-21 23:58] LABS: Glucose - Point of Care 231 mg/dl (70-99)
[2025-07-22] VITALS (51 sets, daily range): BP systolic 79–164; BP diastolic 45–86; PULSE 86–87; O2SAT 99
--- NOTE | 2025-07-22 | PTCARENOTE ---
no changes in pt assessment.
[2025-07-22 00:43] LABS: APTT 145.5 Sec (23.4-35.0)
[2025-07-22] MEDS: NEO-SYNEPHRINE 250 IV (01:29)
[2025-07-22 01:32] LABS: Calcium 7.3 mg/dl (8.4-10.2); Carbon Dioxide 10 mmol/L (22-30); Chloride 114 mmol/L (98-107); Estimated Creatinine Clearance 87 ml/min; Glucose 209 mg/dl (70-99); Potassium 3.9 mmol/L (3.5-5.1); Sodium 137 mmol/L (135-145); eGFR > 60.00
[2025-07-22 01:41] LABS: Blood Urea Nitrogen 8 mg/dl (7-17)
[2025-07-22] MEDS: SODIUM BICARBONATE 50 MEQ IV (03:02)
[2025-07-22] MEDS: CALCIUM GLUCONATE 130 MG IV (03:21)
[2025-07-22] MEDS: SODIUM BICARBONATE 1150 MEQ IV (03:21)
[2025-07-22 05:17] LABS: Venous Blood Gas B.E. -3.3 mmol/L (-4 to +4); Venous Blood Gas O2 Sat % 99.4 %
[2025-07-22 05:23] LABS: Hematocrit 28.7 % (37.0-47.0); Hemoglobin 9.6 g/dL (12.0-16.0); Mean Corp Hgb Conc. 33.4 g/dL (33.0-37.0); Mean Corpuscular Volume 89.7 fL (81.0-99.0); Platelet Count 253 10^3/uL (130-400); Red Cell Dist. Width 18.8 % (11.5-14.5)
[2025-07-22 05:42] LABS: Blood Urea Nitrogen 8 mg/dl (7-17); Calcium 8.4 mg/dl (8.4-10.2); Carbon Dioxide 21 mmol/L (22-30); Chloride 114 mmol/L (98-107); Estimated Creatinine Clearance 88 ml/min; Glucose 224 mg/dl (70-99); Magnesium 2.0 mg/dl (1.6-2.3); Potassium 3.8 mmol/L (3.5-5.1); Sodium 138 mmol/L (135-145); eGFR > 60.00
[2025-07-22] MEDS: FIRVANQ 125 MG PO ×3 (06:22→17:13)
[2025-07-22] MEDS: SOLU-CORTEF 25 MG IV ×3 (06:22→17:13)
[2025-07-22] MEDS: ZOSYN 50 IV ×3 (06:22→17:13)
[2025-07-22] MEDS: SYNTHROID 75 MCG PO (06:22)
[2025-07-22] MEDS: NOVOLOG FLEXPEN-LOW RESISTANCE 300 UNITS SC (06:25)
[2025-07-22 06:35] LABS: Glucose - Point of Care 219 mg/dl (70-99)
--- NOTE | 2025-07-22 07:30 | PTCARENOTE ---
Received pt @ change of shift. Pt. drowsy, awakens to verbal stim; Ox3; denies pain. SR on monitor. Weaned to RA; no s/s of resp distress. +BS,abd soft/round/obese. NPO ex meds/sips maintained; denies n/v. Inc of liq/brown tool; fecal pouch in
place c/d/i. Purewick in place draining clear yellow urine. R TL PICC w bicarb gtt, heparin gtt, and TPN- see MAR/flow sheet. Blood work drawn and sent to lab. Pt. uses call chew approp and placed w in reach.
[2025-07-22] MEDS: PLAVIX 75 MG PO (08:05)
[2025-07-22] MEDS: CRESTOR 20 MG PO (08:05)
[2025-07-22] MEDS: NSS (PRESERVATIVE FREE) 10 ML IV ×2 (08:05→20:39)
[2025-07-22] MEDS: LOTRIMIN 1% CREAM 1 APPLIC TOPICAL (08:05)
[2025-07-22] MEDS: PROTONIX IV 40 MG IV ×2 (08:05→20:40)
[2025-07-22] MEDS: THIAMINE INJECTION 255 MG IV ×2 (08:06→15:44)
--- NOTE | 2025-07-22 08:26 | W.PN.GS2 ---
Today's Communication / Plan
-
-- NPO, sips of apple juice only for comfort
-- Continued hydration with TPN, IVF, monitor BP and UOP throughout the day
-- Recheck CBC and BMP this afternoon, transfuse as needed
-- Abx: PO Vancomycin and Zosyn
-- Anticoagulation: back on Hep gtt in case of need for OR (not currently planned), would continue for now even with Hb drop as unsure of clinical significance (recheck pending)
Assessment / Plan
-
Patient is a 69 yo F p/w acute mesenteric ischemia
POD #6 status post diagnostic laparoscopy with bowel edema, but no advanced/irreversible ischemia
POD #6 status post angiogram, angioplasty and SMA stent placement
Afebrile, soft BP overnight, received 250 cc bolus (unsure on response) on Lucien briefly currently weaned off
Labs notable for elevated WBC (trending down), drop in Hb, normal electrolytes and renal function
Exam reassuring, no signs of peritonitis
Soft BP possibly related to narcotic dose with vasodilation especially given her profound mental status changes; currently improved and off pressors. No dizziness or lightheadedness reported. Mentating well.
Denies any abdominal pain. Fecal management system output has improved. WBC trending down. Lactates previously noted to be normal over the past [address] scan demonstrates hyperemic wall of the terminal ileum and right colon with mesenteric
stranding, possibly related to reperfusion injury or continued ischemia with a possible component of underlying low-flow state/dehydration.
Unsure clinical significance of Hb drop, possibly dilutional or related to hydration over past 48 hours. Good UOP, HR improved, no signs of BRBPR or luminal bleeding.
Plan:
-- NPO, sips of apple juice only for comfort
-- Continued hydration with TPN, IVF, monitor BP and UOP throughout the day
-- Recheck CBC and BMP this afternoon, transfuse as needed
-- Abx: PO Vancomycin and Zosyn
-- Anticoagulation: back on Hep gtt in case of need for OR (not currently planned), would continue for now even with Hb drop as unsure of clinical significance (recheck pending)
-- Medical management as per primary
Subjective Data
-
Date of Service: July 22, 2025
Is feeling much improved. Denies abdominal pain. No nausea or vomiting. Fecal management system in place. No fevers. Cognition/mental status improved.
Objective Data
-
Intake and Output
07/21/25 07/22/25 07/23/25
06:59 06:59 06:59
Intake Total 240 / 240 2944.5 / 2944.5
Output Total 830 / 830 2550 / 2550
Balance -590 / -590 394.5 / 394.5
Intake:
Oral fluids 240 / 240
IV fluids (Total) 1994.5 / 1993.5
40 kcl in 250 nss 67.5 / 67.5
Lucien 30 / 30
Nss 1,000 ml @ 50 mls/hr IV . 1500 / 1500
Q20H TAMMIE Rx#:[id number]
Sterile Water For Injection 225 / 225
1000 ml 1,000 ml @ 75 mls/hr IV
.[id number] TAMMIE with Sodium
Bicarbonate 150 Meq Rx#:
[id number]
heparin gtt 172 / 172
IV piggybacks 550 / 550
TPN/PPN 400 / 400
Output:
Liquid stool amount 300 / 300
Rectum 300 / 300
Urine, Voided 400 / 400 2250 / 2250
Straight cath output 430 / 430
Other:
Number of approximated LARGE 1
amounts of urine
Vital Signs
Temp Pulse Resp BP Pulse Ox
97.6 F 79 10 156/70 99
07/22/25 06:00 07/22/25 06:00 07/22/25 06:00 07/22/25 06:00 07/22/25 06:00
Lab Results
07/22/25 04:58
Calcium 8.4 mg/dl (8.4-10.2) 07/22/25 04:58
Phosphorus 2.9 mg/dl (2.5-4.5) 07/22/25 04:58
Magnesium 2.0 mg/dl (1.6-2.3) 07/22/25 04:58
Total Bilirubin 0.7 mg/dl (0.2-1.3) 07/21/25 13:06
Direct Bilirubin 0.7 mg/dl (0.0-0.4) H 07/16/25 15:10
AST 14 U/L (14-36) 07/21/25 13:06
ALT < 10 U/L (0-35) 07/21/25 13:06
Alkaline Phosphatase 55 U/L (38-126) 07/21/25 13:06
Total Protein 4.4 g/dl (6.3-8.2) L 07/21/25 13:06
Albumin 2.2 g/dl (3.5-5.0) L 07/21/25 13:06
Physical Exam
-
Gen: NAD
Abd: soft, mild tenderness in RLQ (improved), ND, non-peritoneal (no rebound or guarding)
Patient has a tidwell catheter: No
Patient has a central line: Yes
--- NOTE | 2025-07-22 08:53 | W.PN.HOSP.TC ---
Today's Communication/Plan
-
Continue with stress dose steroid dose
Recheck hemoglobin
Encourage ambulation
Continue TPN/sips of clears/insulin regimen
Assessment / Plan
Assessment / Plan
Physical Exam
General: No acute distress, looks better today
HEENT: Normocephalic, Atraumatic, EOMI, MMM
Respiratory: Clear to Auscultation bilaterally
Cardiac: Normal S1/S2, RRR
GI: Soft, not distended, mild tenderness, less
Incisions clean/dry/intact
Extremities: No Clubbing, Cyanosis
Moderate edema noted
Neuro: Confusion resolved, AAOX3, followed commands.
Psych : calm
HPI: 69y F with PMH significant for s/p BioAVR, post-op CVA and subsequent hospitalization for CHF who presents to ED complaining of N/V/D since last PM.
# Change in mental status on 07/21
After ruling out hemodynamic instability, code stroke was called. Stroke was ruled out by examination and imaging studie
Toxic metabolic encephalopathy secondary to combination of adrenal insufficiency and Dilaudid use
Started on stress dose corticosteroid and she is doing better/much improved
Sepsis POA, she met criteria of sepsis on admission. Initial Dx was acute infectious gastroenteritis, Lactic acidosis
Her symptoms did not improve, CT angio was done when her kidney function back to normal and that showed ischemic bowel. In OR, no bowel resection was needed, at same time, vascular did intravascular lithotripsy to SMA, balloon angioplasty with
stenting proximal superior mesenteric artery. Recommended to continue to treat as infection gastroenteritis after OR.
- Lactic acidosis resolved.
- Stool studies positive for C. difficile antigen, negative for toxin
- Appreciate ID input, continue IV Zosyn, oral vancomycin
Severe acute small bowel ischemia secondary to complete occlusion of the SMA artery with severe underlying PAD
- Urgent consult placed to vascular surgery and general surgery
- Last dose of Eliquis and Plavix 07/15
- Appreciate vascular surgery input, s/p emergent intravascular lithotripsy to SMA + balloon angioplasty and stenting of proximal SMA 07/16
- Change IV heparin drip to Eliquis, continue Plavix but now changed back to IV heparin gtt
Repeat CT 07/20 showed continued moderate bowel wall thickening as well as mesentery stranding of the cecum and terminal ileum. d/w surgery, positive small ischemic changes. Recommended to change to IV Heparin gtt, NPO/ TPN/. Normal Lactic acid,
WBC coming down, can stop IV fluid now.
Fecal management system, consulted wound care
#Hemorrhagic shock
- Resolved
Acute urinary retention
encourage ambulation, bladder scan protocol
Flomax
Episode of SVT
c/w BB
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
Worsening anemia, due to sepsis, acute blood loss, and anemia of chronic disease
- Appreciate hematology input, due to sepsis, acute blood loss, mild hemolysis, and anemia of chronic disease
- Status post 4 units packed red blood cells, 2 units of FFP on 07/16
-transfuse as needed
Acute toxic metabolic encephalopathy
- Due to sepsis, resolved.
Hypomagnesemia
Hypokalemia
Coffee-ground emesis
- Started on Protonix 40 mg IV twice daily
Paroxysmal Atrial Fibrillation with rapid ventricular response
- Due to sepsis. Change IV heparin drip to Eliquis
- Appreciate cardiology input, converted to normal sinus rhythm s/p diltiazem drip
- Change IV metoprolol back to her home dose of Toprol XL 25 mg BID
Aortic Stenosis s/p BioAVR
Mild acute on Chronic HFpEF
- Stable. No evidence of volume overload on exam.
- Hold Farxiga
- Give 1 dose of Lasix 40 mg IV x 1 for edema, resumed home Lasix 20 mg p.o. daily
S/p CVA
- CVA POD #1 after AVR. Transferred to [place] for TCAR.
- No new neurologic deficits.
- Continue Plavix
PANTERA
- Likely due to dehydration +/- Bactrim use / med effect
Resolved
Hypophosphatemia
Hypomagnesemia
Hyponatremia
Hypokalemia
- Replete as needed
Prolonged QTc
Mild
- Continue Tigan IM as needed
Panhypopituitarism
Adrenal Insufficiency
Hypothyroidism
- Patient maintained on hydrocortisone daily.
- Given acute illness, hypotension, etc
- Change back po hydrocortisone
- Continue current T4 replacement
DM-II
- Hemoglobin A1c 5.7. Hold PO metformin acutely.
- Follow glucose and cover with SSI as needed - especially on higher dose steroids.
Frequent UTIs
- UA not suggestive of UTI at present.
- Just completed 3 day course of Bactrim on .
- Continue methenamine for prevention and monitor for any symptoms.
DVT Prophylaxis: Change IV heparin drip to Eliquis
Code Status: Full
Total time spent to see the patient, examine the patient, review data and lab results, discuss treatment plan with patient, nursing staff around 55 minutes
Anticipated Discharge: > 48 hours
Subjective/Interval History
-
Date of Service: July 22, 2025
She feels better
Denies abd pain
No nausea, wants to have diet
Objective Data
-
Labs:
Laboratory Results
07/22/25 07/22/25 07/22/25
00:19 04:58 08:29
WBC 15.8 H
Hgb 9.6 L D
Hct 28.7 L
Plt Count 253
APTT 145.5 H Pending
Sodium 137 D 138
Potassium 3.9 3.8
Chloride 114 H 114 H
Carbon Dioxide 10 L* 21 L
BUN 8 8
Creatinine 0.6 0.6
Glucose 209 H 224 H
Calcium 7.3 L 8.4
07/22/25
12:00
WBC Pending
Hgb Pending
Hct Pending
Plt Count Pending
APTT
Sodium Pending
Potassium Pending
Chloride Pending
Carbon Dioxide Pending
BUN Pending
Creatinine Pending
Glucose Pending
Calcium Pending
Vital Signs:
Vital Signs
Temp Pulse Resp BP Pulse Ox
97.8 F 79 10 156/70 99
07/22/25 08:00 07/22/25 06:00 07/22/25 06:00 07/22/25 06:00 07/22/25 06:00
I&O
07/21/25 07/22/25 07/23/25
06:59 06:59 06:59
Intake Total 240 / 240 2944.5 / 3008.5 383 / 383
Output Total 830 / 830 2550 / 2550
Balance -590 / -590 394.5 / 458.5 383 / 383
--- NOTE | 2025-07-22 09:02 | W.PN.ID1 ---
Date of Service
Date of Service: July 22, 2025
Today's Communication
Continue Zosyn for today.
Assessment / Plan
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
- s/p intravascular lithotripsy to SMA calcified stenosis/occlusion (07/16/2025)
A-fib with RVR.
GI bleed
Leukocytosis
C. difficile antigen (+) / toxin (-)
Diarrhea
Lactic acidosis
Aortic Stenosis
Hypertension
HFpEF
Paroxysmal Atrial Fibrillation
DM-II
Panhypopituitarism (Rathke's Cleft Cyst)
Hypothyroidism
Adrenal Insufficiency
Recurrent UTIs
Diverticular Disease
Recommendations:
Continue Zosyn 3.375 gm IV q.6 h (d#11)
Continue oral vancomycin
Leukocytosis improved today.
Continue to monitor white count and temperature curve.
Continue with supportive measures.
����������������������������������������������������������
Chief Complaint
-: Leukocytosis, Clinical Sepsis and C-diff (colonization)
Subjective / Review of Systems
Patient seen and examined. Chart reviewed. Moved to ICU last evening secondary to increasing lethargy. Currently feels well and denies complaints. No abdominal pain.
Vital Signs / Physical Exam
Vital Signs
Vital Signs
Temp Pulse Resp BP Pulse Ox
97.8 F 79 10 156/70 99
07/22/25 08:00 07/22/25 06:00 07/22/25 06:00 07/22/25 06:00 07/22/25 06:00
Physical Exam
Constitutional: No Acute Distress and Chronically Ill
Cardiovascular: Regular Rate and S1/S2; Negative S3/S4
Pulmonary: Clear and Symmetric
Gastrointestinal: Soft, Non Tender, Non Distended, Decreased Bowel Sounds, No Rebound and No Guarding
Extremities: Negative Edema or Cyanosis
Skin: Warm and Dry; Negative Rash or Jaundice
Neurological: Awake
Psychological: Calm
Lines: PICC (RUE; exit site without erythema)
Objective Data
Lab Data
PT Cancelled 07/21/25 14:11
INR Cancelled 07/21/25 14:11
APTT 145.5 Sec (23.4-35.0) H 07/22/25 00:19
Estimated Creat Clear 88 ml/min 07/22/25 04:58
Lactic Acid 1.0 mmol/L (0.7-2.0) 07/21/25 11:43
Total Bilirubin 0.7 mg/dl (0.2-1.3) 07/21/25 13:06
AST 14 U/L (14-36) 07/21/25 13:06
ALT < 10 U/L (0-35) 07/21/25 13:06
Alkaline Phosphatase 55 U/L (38-126) 07/21/25 13:06
Most recent labs reviewed.
Micro Results:
07/12/25 17:06 Blood Culture - Final
Blood/Venous No Growth - Final Report
07/11/25 19:37 Blood Culture - Final
Blood/Venous No Growth - Final Report
07/11/25 19:37 Blood Culture - Final
Blood/Venous No Growth - Final Report
07/12/25 11:37 Salmonella/Shigella Culture - Final
Feces/Stool No Salmonella, Shigella, Aeromonas or Plesiomonas species
isolated.
Campylobacter Culture - Final
No Campylobacter species isolated.
- Final
NO YERSINIA SPECIES ISOLATED
Shiga Toxin Test - Final
No E. coli Shiga Toxin 1 or 2 detected.
Stool Leukocytes - Final
07/12/25 11:37 Cryptosporidium/Giardia - Final
Feces/Stool Negative for Cryptosporidium and/or Giardia Lamblia
antigens.
C. difficile GDH Antigen & Toxins - Final
C. difficile antigen positive, toxin negative.
Clostridium difficile present, but toxin not detected.
Patient may be a carrier, colonized with nontoxinogenic
strain or the level of toxin in sample is below detection
limits. This information should be used in conjunction with
the patient's clinical history.
- Final
Negative for Norovirus GI and GII.
Imaging:
07/16/2025 CT abdomen/pelvis angio: severe acute small bowel ischemia with pneumatosis is noted. Moderate mesenteric edema, and small volume ascites noted. There is complete occlusion of the superior mesenteric artery. Severe calcific
atherosclerotic plaque in the abdominal aorta and iliac arteries. Moderate diverticulosis in the descending colon. Please see full dictation for additional detail.
07/11/2025 CT abdomen/pelvis without contrast: evaluation is limited without intravenous or oral contrast. No gross focal intrinsic abnormality of the unopacified liver, spleen, pancreas, kidneys or adrenal glands. No significant perinephric
stranding. Small gallstones are seen within a borderline prominent gallbladder. No biliary tract dilatation. Evaluation of the intestinal tract is markedly limited, but no intestinal obstruction or free air is noted. Please see full dictation
for additional detail.
[2025-07-22 09:11] LABS: APTT 114.5 Sec (23.4-35.0)
--- NOTE | 2025-07-22 11:32 | PTCARENOTE ---
bicarb gtt d/c'd per order. pt. assisted x2 OOB to chair @ approx 1000; gait unsteady, gen weakness. Remains in chair @ this time; tolerating position. @ bedside, updated. Call chew remains w in reach.
--- NOTE | 2025-07-22 12:32 | W.PN.INTV ---
Today's Communication / Plan
Recommendations
- Check lactate
- Discontinue bicarb containing fluids
- Serial BMP
- Follow-up on cultures
Assessment
-
Assessment: 69-year-old F with PMHx of HTN, HLD, DM type II, former tobacco use, valvular heart disease, central hypothyroidism, Hx of adrenal insufficiency, colovesical fistula and chronic lower extremity edema who p/w nausea, vomiting and
diarrhea. Initial WBC was 26.3 with Cr 1.9, and lactate 4.2. UA not suggestive of UTI. Blood Cx drawn. Given 2L in ER. ABx started with Zosyn, flagyl and rectal vanc (changed to PO vanc on 07/14). ID was following as well as GI. Heme was
consulted for anemia. CTA A/P on 07/16/2025 showed severe acute small bowel ischemia with complete SMA occlusion, and severe calcific atherosclerotic plaque in the abdominal aorta and iliac arteries. She received multiple PRBC transfusions on 07/16
due to anemia with GI bleed. Due to persistent symptoms of nausea, vomiting and abd pain, pt was recommended to go to OR - on 07/16 she underwent angiogram with SMA angioplasty and stent placement. She was then TRX to ICU for further care and
Orthopaedic Surgeon services consulted for further management.
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
stenosis + AI, history of hyponatremia associated with adrenal insufficiency, Rathke's cleft cyst, history of UTI, colovesical fistula, history of perirectal abscess, chronic lower extremity edema
07/22. Patient on TPN infusion as well as heparin drip. Bicarb drip discontinued. Saturating well on room air, MAP above 65.
Assessment and Plan:
#1. Acute encephalopathy, 07/21. (Rapid response event on the floor, transferred to ICU)
- Suspect related to adrenal insufficiency, narcotics as well as hyponatremia. Resolved, at baseline now.
- 07/21, in the ICU, minimally response initially. Narcan 1 mg given stat, patient more awake, alert and interactive after.
- Stat CT head reviewed. Neurology on case. CT and CTA Head/Neck without acute change
- Stat ABG sent to evaluate for any hypercapnia. 7., not suggestive of acidosis or hypercapnia. Lactate normal
- End tidal CO2 monitoring
- Serial neurochecks
- Empiric high dose thiamine continued since patient has not been taking PO for a while and TPN is scheduled to be started today
- Switched PO Hydrocortisone 20 mg to 25 mg IV q6hrs in view of acute illness.
#2. Acute mesenteric ischemia s/p intravascular lithotripsy to SMA + balloon angioplasty and stenting of proximal SMA (07/16/2025)
- On Plavix and Heparin infusion
- Vascular surgery, hematology/oncology and General surgery on case
- Lactate 07/21 normal, ABG without acidosis. CT A/P 07/20 reviewed. Abdominal exam not suggestive of acute abdomen.
- Surgery service on case. Follow-up lactate this morning again at 0.8, hemodynamically stable. Patient briefly required pressors overnight, hypotension since resolved.
#3. A-fib with RVR - now rate controlled and in sinus rhythm
- On metoprolol and IV heparin drip, cardiology service on case
#4. Hx of severe aortic stenosis s/p bioprosthetic AVR and aortic root enlargement using bovine pericardial patch (OR date: 05/27/2025)
- Hemodynamically stable
#5. Chronic HFpEF not in an acute exacerbation
- Strict input and output monitoring
#6. H/o C diff antigen (+) with negative toxin, elevated WBC and concern for intra-abdominal source of infection
- ID service on case. Currently on IV Zosyn and p.o. vancomycin.
#7. Adrenal insufficiency with panhypopituitarism
- IV hydrocortisone 25 mg every 6 hours scheduled
- Continue thyroid replacement, follow-up TSH with free T4 in a.m.
#8. Hyponatremia.
- Multifactorial, adrenal insufficiency, hypothyroidism, history of congestive heart failure
- Gradually improving, continue to monitor closely
DVT prophylaxis. Currently anticoagulated with heparin drip
GI prophylaxis. IV Protonix
Other chronic medical diagnoses:
#Diarrhea due to mesenteric ischemia
#Lactic acidosis, resolved
#Acute anemia requiring multiple PRBC transfusions
#DM type II
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
Critical Care time 48 mins -- The patient is admitted for acute critical illness for the treatment of vital organ failure and/or prevention of further life-threatening conditions. Total care includes time spent in review of history, physical exam,
medications, hemodynamic/ventilator parameters, laboratory data, imaging and discussion with house staff, pharmacy, respiratory therapy, public relations counselor, and nursing.
Data:
CT A/P 07/20/2025: Stable moderate bowel wall thickening of the distal ileum and proximal ascending colon. Differential diagnosis includes inflammation, infection and ischemia. Progressed small bowel dilatation. Improved possible pneumatosis. New
mesenteric edema on the right. Resolved mesenteric edema on the left.
Mild free fluid in the pelvis likely reactive. New.
Mild appendiceal dilatation. This may be reactive. Acute appendicitis cannot be excluded. New from 05/04/2025.
Moderate right pleural effusion. Progressed. Small left pleural effusion. Stable.
Mild bibasilar consolidation likely atelectasis. Progressed.
Severe atherosclerotic vascular disease. SMA stent. New
Gallstones. Stable.
Minimally distended bladder. Mild diffuse bladder wall thickening. This can be seen with limited distention. Cystitis and bladder outlet obstruction not excluded. Mild air in the bladder. This can be seen with recent instrumentation or infection
Small pericardial effusion. Progressed.
Moderate hiatal hernia. Stable
ECHO 06/2025: 1. Left ventricular ejection fraction is normal with an ejection fraction of 65 % by Montiel's biplane method of discs.
2. Right ventricular size and systolic function are within normal limits.
3. Well seated, normally functioning Bioprosthetic aortic valve prosthesis.
4. No evidence of pericardial effusion.
5. Compared to the prior echo on 03/09/2025 the aortic valve has been replaced.
Subjective Dataa
Subjective Data
Date of Service:
Date of Service: July 22, 2025
Chief Complaint: Orthopaedic Surgeon Follow Up
Subjective:
Patient comfortably lying in bed in no acute distress.
Review of Systems
Genitourinary: Other (All 14 systems reviewed and negative except as stated above in the history of present illness.)
Objective Data
Data Reviewed
Vital Signs / I&O / Oxygen:
Vital Signs
Temp Pulse Resp BP Pulse Ox
97.8 F 87 19 109/76 99
07/22/25 08:00 07/22/25 11:00 07/22/25 11:00 07/22/25 11:00 07/22/25 11:00
Intake and Output
07/21/25 07/22/25 07/23/25
06:59 06:59 06:59
Intake Total 240 / 240 2944.5 / 3071.5 663 / 663
Output Total 830 / 830 2550 / 2550
Balance -590 / -590 394.5 / 521.5 663 / 663
SaO2 99
Nasal Cannula flow liters per 4
minute
Physical Exam
General: Respiratory Distress (negative), Comfortable, Chills (negative) and Sweats (negative)
HEENT: Normocephalic and Anicteric
Cardiovascular: S1-S2 and Peripheral Edema (Trace)
Respiratory: Wheeze (negative), Crackles (negative), Rhonchi (negative) and Non-Labored Respirations
GI: Soft, Non Distended, Non Tender and Normal Bowel Sounds
Neurology: AO x 3 and Tremors (negative)
Skin: Warm, Dry, Cyanosis (negative) and Jaundice (negative)
Labs/Micro/Reports
Laboratory Results
07/21/25 07/21/25 07/21/25
13:06 14:11 15:07
PT 20.4 H Cancelled
INR 1.69 Cancelled
APTT 111.4 H
pH 7.42
pCO2 28 L
pO2 230 H
HCO3 18.2 L
O2 Delivery Level Not Reportable
07/21/25 07/22/25 07/22/25
19:37 00:19 08:29
PT
INR
APTT Cancelled 145.5 H 114.5 H
pH
pCO2
pO2
HCO3
O2 Delivery Level
[2025-07-22] MEDS: NOVOLOG FLEXPEN 3 UNITS SC ×2 (12:48→17:14)
[2025-07-22] MEDS: NOVOLOG FLEXPEN-LOW RESISTANCE 3 UNITS SC (12:48)
[2025-07-22 12:54] LABS: Glucose - Point of Care 294 mg/dl (70-99)
[2025-07-22 13:19] LABS: Blood Urea Nitrogen 9 mg/dl (7-17); Calcium 8.3 mg/dl (8.4-10.2); Carbon Dioxide 23 mmol/L (22-30); Chloride 112 mmol/L (98-107); Estimated Creatinine Clearance 88 ml/min; Glucose 269 mg/dl (70-99); Potassium 3.6 mmol/L (3.5-5.1); Sodium 138 mmol/L (135-145); eGFR > 60.00
[2025-07-22 13:44] LABS: Hematocrit 29.4 % (37.0-47.0); Hemoglobin 10.0 g/dL (12.0-16.0); Mean Corp Hgb Conc. 34.0 g/dL (33.0-37.0); Mean Corpuscular Volume 91.0 fL (81.0-99.0); Platelet Count 257 10^3/uL (130-400); Red Cell Dist. Width 18.8 % (11.5-14.5)
--- NOTE | 2025-07-22 16:00 | CM ---
Addendum entered by Yoel Gibson 07/23/25 10:24:
[employer] list explained and provided to daughter.
Original Note:
WBC slowly trending down 15.9 today, TPN, IV/Solu-Cortef and IV/Zosyn. Discharge POC: Therapy recommending SNF. Will provide Medicare[employer] list.
[2025-07-22] MEDS: HEPARIN 25000 UNITS/250 ML IV (16:10)
[2025-07-22 16:42] LABS: APTT 81.4 Sec (23.4-35.0)
[2025-07-22 17:12] LABS: Glucose - Point of Care 213 mg/dl (70-99)
[2025-07-22] MEDS: NOVOLOG FLEXPEN-LOW RESISTANCE 2 UNITS SC (17:13)
--- NOTE | 2025-07-22 18:36 | PTCARENOTE ---
pt. tolerated approx 4H OOB to chair; assisted x1 w RW back to bed. Assisted w active repositioning in bed. Remains on TPN and heparin gtts- see MAR/flow sheet. Tolerating sips of clears; denies n/v. Call chew remains w in reach.
[2025-07-22] MEDS: TOPROL XL 25 MG PO (20:39)
[2025-07-22] MEDS: Parenteral Nutrition, Central 1280 IV (20:40)
--- NOTE | 2025-07-22 21:00 | PTCARENOTE ---
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 POC discussed, call chew with pt.
[2025-07-22] MEDS: LOTRIMIN 1% CREAM TOPICAL (21:35)
[2025-07-23] VITALS (26 sets, daily range): BP systolic 113–183; BP diastolic 39–97; BMI 30.6
[2025-07-23] MEDS: FIRVANQ 125 MG PO ×4 (00:01→17:22)
[2025-07-23] MEDS: SOLU-CORTEF 25 MG IV ×4 (00:02→17:23)
[2025-07-23] MEDS: THIAMINE INJECTION 255 MG IV ×2 (00:03→09:05)
[2025-07-23] MEDS: ZOSYN 50 IV ×4 (00:03→17:22)
[2025-07-23] MEDS: NOVOLOG FLEXPEN 6 UNITS SC ×2 (00:04→05:59)
[2025-07-23] MEDS: NOVOLOG FLEXPEN-LOW RESISTANCE 2 UNITS SC ×2 (00:04→05:59)
[2025-07-23 00:11] LABS: Glucose - Point of Care 234 mg/dl (70-99)
[2025-07-23 00:53] LABS: APTT 67.1 Sec (23.4-35.0)
--- NOTE | 2025-07-23 04:00 | PTCARENOTE ---
no change in pt assessment.
[2025-07-23] MEDS: SYNTHROID 75 MCG PO (06:00)
[2025-07-23 06:10] LABS: Glucose - Point of Care 237 mg/dl (70-99)
[2025-07-23 06:41] LABS: APTT 52.4 Sec (23.4-35.0)
[2025-07-23 06:42] LABS: Hematocrit 28.5 % (37.0-47.0); Hemoglobin 9.2 g/dL (12.0-16.0); Mean Corp Hgb Conc. 32.3 g/dL (33.0-37.0); Mean Corpuscular Volume 91.9 fL (81.0-99.0); Platelet Count 255 10^3/uL (130-400); Red Cell Dist. Width 18.9 % (11.5-14.5)
[2025-07-23 07:30] LABS: Blood Urea Nitrogen 11 mg/dl (7-17); Calcium 8.3 mg/dl (8.4-10.2); Carbon Dioxide 23 mmol/L (22-30); Chloride 116 mmol/L (98-107); Estimated Creatinine Clearance 88 ml/min; Glucose 231 mg/dl (70-99); Magnesium 2.0 mg/dl (1.6-2.3); Potassium 3.5 mmol/L (3.5-5.1); Sodium 141 mmol/L (135-145); eGFR > 60.00
--- NOTE | 2025-07-23 08:36 | W.PN.INTV ---
Today's Communication / Plan
Recommendations
- Patient can be transferred out of ICU to IMU
- Lunchroom Operator service will sign off, please call as needed
Assessment
-
Assessment: 69-year-old F with PMHx of HTN, HLD, DM type II, former tobacco use, valvular heart disease, central hypothyroidism, Hx of adrenal insufficiency, colovesical fistula and chronic lower extremity edema who p/w nausea, vomiting and
diarrhea. Initial WBC was 26.3 with Cr 1.9, and lactate 4.2. UA not suggestive of UTI. Blood Cx drawn. Given 2L in ER. ABx started with Zosyn, flagyl and rectal vanc (changed to PO vanc on 07/14). ID was following as well as GI. Heme was
consulted for anemia. CTA A/P on 07/16/2025 showed severe acute small bowel ischemia with complete SMA occlusion, and severe calcific atherosclerotic plaque in the abdominal aorta and iliac arteries. She received multiple PRBC transfusions on 07/16
due to anemia with GI bleed. Due to persistent symptoms of nausea, vomiting and abd pain, pt was recommended to go to OR - on 07/16 she underwent angiogram with SMA angioplasty and stent placement. She was then TRX to ICU for further care and
Lunchroom Operator services consulted for further management.
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
stenosis + AI, history of hyponatremia associated with adrenal insufficiency, Rathke's cleft cyst, history of UTI, colovesical fistula, history of perirectal abscess, chronic lower extremity edema
07/23. Current infusion TPN and heparin drip. Saturating 94% on room air, MAP is normal. Urine output good, fluid balance -428 mL over last 24 hours.
Assessment and Plan:
#1. Acute encephalopathy, 07/21. (Rapid response event on the floor, transferred to ICU)
- Suspect related to adrenal insufficiency, narcotics as well as hyponatremia. Resolved, at baseline now.
- 07/21, in the ICU, minimally response initially. Narcan 1 mg given stat, patient more awake, alert and interactive after.
- Stat CT head reviewed. Neurology on case. CT and CTA Head/Neck without acute change
- Stat ABG sent to evaluate for any hypercapnia. 7., not suggestive of acidosis or hypercapnia. Lactate normal
- End tidal CO2 monitoring
- Serial neurochecks
- Empiric high dose thiamine continued since patient has not been taking PO for a while and TPN is scheduled to be started today
- Switched PO Hydrocortisone 20 mg to 25 mg IV q6hrs in view of acute illness.
- Clinically quite improved, can transfer out of ICU
#2. Acute mesenteric ischemia s/p intravascular lithotripsy to SMA + balloon angioplasty and stenting of proximal SMA (07/16/2025)
- On Plavix and Heparin infusion
- Vascular surgery, hematology/oncology and General surgery on case
- Lactate 07/21 normal, ABG without acidosis. CT A/P 07/20 reviewed. Abdominal exam not suggestive of acute abdomen.
- Surgery service on case. Follow-up lactate this morning again at 0.8, hemodynamically stable. Patient briefly required pressors overnight, hypotension since resolved.
#3. A-fib with RVR - now rate controlled and in sinus rhythm
- On metoprolol and IV heparin drip, cardiology service on case
#4. Hx of severe aortic stenosis s/p bioprosthetic AVR and aortic root enlargement using bovine pericardial patch (OR date: 05/27/2025)
- Hemodynamically stable
#5. Chronic HFpEF not in an acute exacerbation
- Strict input and output monitoring
#6. H/o C diff antigen (+) with negative toxin, elevated WBC and concern for intra-abdominal source of infection
- ID service on case. Currently on IV Zosyn and p.o. vancomycin.
#7. Adrenal insufficiency with panhypopituitarism
- IV hydrocortisone 25 mg every 6 hours scheduled
- Continue thyroid replacement, follow-up TSH with free T4 in a.m.
#8. Hyponatremia.
- Multifactorial, adrenal insufficiency, hypothyroidism, history of congestive heart failure
- Gradually improving, continue to monitor closely
DVT prophylaxis. Currently anticoagulated with heparin drip
GI prophylaxis. IV Protonix
Other chronic medical diagnoses:
#Diarrhea due to mesenteric ischemia
#Lactic acidosis, resolved
#Acute anemia requiring multiple PRBC transfusions
#DM type II
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
Critical Care time 42 mins -- The patient is admitted for acute critical illness for the treatment of vital organ failure and/or prevention of further life-threatening conditions. Total care includes time spent in review of history, physical exam,
medications, hemodynamic/ventilator parameters, laboratory data, imaging and discussion with house staff, pharmacy, respiratory therapy, hand spring repairer, and nursing.
Updated at bedside
Data:
CT A/P 07/20/2025: Stable moderate bowel wall thickening of the distal ileum and proximal ascending colon. Differential diagnosis includes inflammation, infection and ischemia. Progressed small bowel dilatation. Improved possible pneumatosis. New
mesenteric edema on the right. Resolved mesenteric edema on the left.
Mild free fluid in the pelvis likely reactive. New.
Mild appendiceal dilatation. This may be reactive. Acute appendicitis cannot be excluded. New from 05/04/2025.
Moderate right pleural effusion. Progressed. Small left pleural effusion. Stable.
Mild bibasilar consolidation likely atelectasis. Progressed.
Severe atherosclerotic vascular disease. SMA stent. New
Gallstones. Stable.
Minimally distended bladder. Mild diffuse bladder wall thickening. This can be seen with limited distention. Cystitis and bladder outlet obstruction not excluded. Mild air in the bladder. This can be seen with recent instrumentation or infection
Small pericardial effusion. Progressed.
Moderate hiatal hernia. Stable
ECHO 06/2025: 1. Left ventricular ejection fraction is normal with an ejection fraction of 65 % by Montiel's biplane method of discs.
2. Right ventricular size and systolic function are within normal limits.
3. Well seated, normally functioning Bioprosthetic aortic valve prosthesis.
4. No evidence of pericardial effusion.
5. Compared to the prior echo on 03/09/2025 the aortic valve has been replaced.
Subjective Dataa
Subjective Data
Date of Service:
Date of Service: July 23, 2025
Chief Complaint: Lunchroom Operator Follow Up
Subjective:
Patient comfortably sitting in bed in no acute distress.
Review of Systems
Genitourinary: Other (All 14 systems reviewed and negative except as stated above in the history of present illness.)
Objective Data
Data Reviewed
Vital Signs / I&O / Oxygen:
Vital Signs
Temp Pulse Resp BP Pulse Ox
98.6 F 81 14 156/57 99
07/23/25 07:24 07/23/25 06:30 07/23/25 06:30 07/23/25 06:00 07/23/25 06:30
Intake and Output
07/22/25 07/23/25 07/24/25
06:59 06:59 06:59
Intake Total 2944.5 / 3071.5 2773 / 2773
Output Total 2550 / 2550 2700 / 2700
Balance 394.5 / 521.5 73 / 73
SaO2 99
Nasal Cannula flow liters per 4
minute
Physical Exam
General: Respiratory Distress (negative), Comfortable, Chills (negative) and Sweats (negative)
HEENT: Normocephalic and Anicteric
Cardiovascular: S1-S2 and Peripheral Edema (Trace)
Respiratory: Wheeze (negative), Crackles (negative), Rhonchi (negative) and Non-Labored Respirations
GI: Soft, Non Distended, Non Tender and Normal Bowel Sounds
Neurology: AO x 3 and Tremors (negative)
Skin: Warm, Dry, Cyanosis (negative) and Jaundice (negative)
Labs/Micro/Reports
Lab Data
07/23/25 06:01
07/23/25 06:01
Laboratory Results
07/22/25 07/22/25 07/23/25
08:29 16:19 00:05
APTT 114.5 H 81.4 H 67.1 H
07/23/25
06:01
APTT 52.4 H
--- NOTE | 2025-07-23 09:00 | PTCARENOTE ---
awake and alert , NSR on monitor , now seen by surgery and ok to have clear liquid diet , pt tolerated 500 ml of clear liquid for breakfast , denies co abdominal pain , at bedside and updated on plan of care
[2025-07-23] MEDS: PLAVIX 75 MG PO (09:03)
[2025-07-23] MEDS: TOPROL XL 25 MG PO ×2 (09:03→19:21)
[2025-07-23] MEDS: CRESTOR 20 MG PO (09:03)
[2025-07-23] MEDS: LOTRIMIN 1% CREAM TOPICAL (09:04)
[2025-07-23] MEDS: PROTONIX IV 40 MG IV ×2 (09:04→19:21)
[2025-07-23] MEDS: NSS (PRESERVATIVE FREE) 10 ML IV ×2 (09:04→19:21)
--- NOTE | 2025-07-23 09:10 | W.PN.HOSP.TC ---
Today's Communication/Plan
-
.
Assessment / Plan
Assessment / Plan
Physical Exam
General: No acute distress,
HEENT: Normocephalic, Atraumatic, EOMI, MMM
Respiratory: Clear to Auscultation bilaterally
Cardiac: Normal S1/S2, RRR
GI: Soft, not distended, no tenderness,
Incisions clean/dry/intact
Extremities: No Clubbing, Cyanosis
Moderate edema noted
Neuro: AAOX3, followed commands. Non focal.
Psych : calm
HPI: 69y F with PMH significant for s/p BioAVR, post-op CVA and subsequent hospitalization for CHF who presents to ED complaining of N/V/D since last PM.
# Change in mental status on 07/21
After ruling out hemodynamic instability, code stroke was called. Stroke was ruled out by examination and imaging studies
Toxic metabolic encephalopathy secondary to combination of adrenal insufficiency and Dilaudid use
Started on stress dose corticosteroid and she is doing better/much improved
Sepsis POA, she met criteria of sepsis on admission. Initial Dx was acute infectious gastroenteritis, Lactic acidosis but CT angio was done when her kidney function back to normal and that showed ischemic bowel. In OR, no bowel resection was
needed, at same time, vascular did intravascular lithotripsy to SMA, balloon angioplasty with stenting proximal superior mesenteric artery. Recommended to continue to treat as infection gastroenteritis after OR.
- Lactic acidosis resolved.
- Stool studies positive for C. difficile antigen, negative for toxin
- Appreciate ID input, continue IV Zosyn, oral vancomycin
Severe acute small bowel ischemia secondary to complete occlusion of the SMA artery with severe underlying PAD
- Urgent consult placed to vascular surgery and general surgery
- Last dose of Eliquis and Plavix 07/15
- Appreciate vascular surgery input, s/p emergent intravascular lithotripsy to SMA + balloon angioplasty and stenting of proximal SMA 07/16
- Change IV heparin drip to Eliquis, continue Plavix but now changed back to IV heparin gtt
Repeat CT 07/20 showed continued moderate bowel wall thickening as well as mesentery stranding of the cecum and terminal ileum. d/w surgery, positive small ischemic changes. Recommended to change to IV Heparin gtt, NPO/ TPN/. Normal Lactic acid,
WBC coming down, I think can start oral liquids.
Fecal management system, consulted wound care
#Hemorrhagic shock
- Resolved
Acute urinary retention
encourage ambulation, bladder scan protocol
Flomax
Episode of SVT
c/w BB
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
Worsening anemia, due to sepsis, acute blood loss, and anemia of chronic disease
- Appreciate hematology input, due to sepsis, acute blood loss, mild hemolysis, and anemia of chronic disease
- Status post 4 units packed red blood cells, 2 units of FFP on 07/16
-transfuse as needed
Acute toxic metabolic encephalopathy
- Due to sepsis, resolved.
Hypomagnesemia
Hypokalemia
Coffee-ground emesis
- Started on Protonix 40 mg IV twice daily
Paroxysmal Atrial Fibrillation with rapid ventricular response
- Due to sepsis. Change IV heparin drip to Eliquis
- Appreciate cardiology input, converted to normal sinus rhythm s/p diltiazem drip
- Change IV metoprolol back to her home dose of Toprol XL 25 mg BID
Aortic Stenosis s/p BioAVR
Mild acute on Chronic HFpEF
- Stable. No evidence of volume overload on exam.
- Hold Farxiga
- Give 1 dose of Lasix 40 mg IV x 1 for edema, resumed home Lasix 20 mg p.o. daily
S/p CVA
- CVA POD #1 after AVR. Transferred to [facility] for [facility].
- No new neurologic deficits.
- Continue Plavix
PANTERA
- Likely due to dehydration +/- Bactrim use / med effect
Resolved
Hypophosphatemia
Hypomagnesemia
Hyponatremia
Hypokalemia
- Replete as needed
Prolonged QTc
Mild
- Continue Tigan IM as needed
Panhypopituitarism
Adrenal Insufficiency
Hypothyroidism
- Patient maintained on hydrocortisone daily.
- Given acute illness, hypotension, etc
- Change back po hydrocortisone
- Continue current T4 replacement
DM-II
- Hemoglobin A1c 5.7. Hold PO metformin acutely.
- Follow glucose and cover with SSI as needed - especially on higher dose steroids.
Frequent UTIs
- UA not suggestive of UTI at present.
- Just completed 3 day course of Bactrim on .
- Continue methenamine for prevention and monitor for any symptoms.
DVT Prophylaxis: Change IV heparin drip to Eliquis
Code Status: Full
Total time spent to see the patient, examine the patient, review data and lab results, discuss treatment plan with patient, nursing staff around 55 minutes
Anticipated Discharge: > 48 hours
Subjective/Interval History
-
Date of Service: July 23, 2025
No chest pain
No sob
She wants to eat, feels ready
Objective Data
-
Labs:
Laboratory Results
07/23/25 07/23/25
00:05 06:01
WBC 13.8 H
Hgb 9.2 L
Hct 28.5 L
Plt Count 255
APTT 67.1 H 52.4 H
Sodium 141
Potassium 3.5
Chloride 116 H
Carbon Dioxide 23
BUN 11
Creatinine 0.5 L
Glucose 231 H
Calcium 8.3 L
Vital Signs:
Vital Signs
Temp Pulse Resp BP Pulse Ox
98.6 F 87 14 179/76 99
07/23/25 07:24 07/23/25 09:03 07/23/25 06:30 07/23/25 09:03 07/23/25 06:30
I&O
07/22/25 07/23/25 07/24/25
06:59 06:59 06:59
Intake Total 2944.5 / 3071.5 2773 / 2773
Output Total 2550 / 2550 2700 / 2700
Balance 394.5 / 521.5 / 73
--- NOTE | 2025-07-23 09:26 | W.PN.GS2 ---
Today's Communication / Plan
-
-- Trial of clears, would be slow to advance if at all over the next 24 to 48 hours
-- Continued hydration with TPN and IVF
-- Anticoagulation: back on Hep gtt in case of need for OR (not currently planned), would continue for now with a tentative plan to transition to Eliquis when WBC normal and tolerating solid food
-- Trend labs including WBC and Hb (would consider higher transfusion goals with cardiac history for O2 carrying capacity)
Assessment / Plan
-
Patient is a 69 yo F p/w acute mesenteric ischemia
POD #7 status post diagnostic laparoscopy with bowel edema, but no advanced/irreversible ischemia
POD #7 status post angiogram, angioplasty and SMA stent placement
Afebrile, BP improved off pressors
Labs notable for elevated WBC (trending down), stable Hb (drift down likely due to hydration), normal electrolytes and renal function
Exam improved with no RLQ tenderness today
Soft BP improved. Previously related to lower volume possibly compounded by narcotic dose with vasodilation especially given her profound mental status changes. Currently improved and off pressors. No dizziness or lightheadedness reported.
Mentating well.
Denies any abdominal pain, exam improved. Fecal management system continued liquid non-bloody. WBC trending down. Lactates previously noted to be normal. CT scan demonstrates hyperemic wall of the terminal ileum and right colon with mesenteric
stranding, possibly related to reperfusion injury or continued ischemia with a possible component of underlying low-flow state/dehydration.
Plan:
-- Trial of clears, would be slow to advance if at all over the next 24 to 48 hours
-- Continued hydration with TPN and IVF
-- Abx: PO Vancomycin and Zosyn, biggest indication at this time is translocation
-- Anticoagulation: back on Hep gtt in case of need for OR (not currently planned), would continue for now with a tentative plan to transition to Eliquis when WBC normal and tolerating solid food
-- Trend labs including WBC and Hb (would consider higher transfusion goals with cardiac history for O2 carrying capacity)
-- Medical management as per primary
Subjective Data
-
Date of Service: July 23, 2025
No complaints. Eager for clear liquids. Denies nausea or vomiting. Denies any abdominal pain. No fevers.
Objective Data
-
Intake and Output
07/22/25 07/23/25 07/24/25
06:59 06:59 06:59
Intake Total 2944.5 / 3071.5 2773 / 2773
Output Total 2550 / 2550 2700 / 2700
Balance 394.5 / 521.5 73 / 73
Intake:
Oral fluids 480 / 480
IV fluids (Total) 1993.5 / 2080.5 423 / 423
40 kcl in 250 nss 67.5 / 67.5
Lucien 30 / 30
Nss 1,000 ml @ 50 mls/hr IV . 1500 / 1500
Q20H TAMMIE Rx#:[id number]
Sterile Water For Injection 225 / 300 150 / 150
1000 ml 1,000 ml @ 75 mls/hr IV
.Q68M23S TAMMIE with Sodium
Bicarbonate 150 Meq Rx#:
[id number]
heparin gtt 172 / 184 273 / 273
IV piggybacks 550 / 550 910 / 910
TPN/PPN 400 / 440 960 / 960
Output:
Liquid stool amount 300 / 300 400 / 400
Rectum 300 / 300 400 / 400
Urine, Voided 2250 / 2250 2300 / 2300
Other:
Number of approximated LARGE 1
amounts of urine
Vital Signs
Temp Pulse Resp BP Pulse Ox
98.6 F 87 14 179/76 99
07/23/25 07:24 07/23/25 09:03 07/23/25 06:30 07/23/25 09:03 07/23/25 06:30
Lab Results
07/23/25 06:01
07/23/25 06:01
Calcium 8.3 mg/dl (8.4-10.2) L 07/23/25 06:01
Phosphorus 2.2 mg/dl (2.5-4.5) L 07/23/25 06:01
Magnesium 2.0 mg/dl (1.6-2.3) 07/23/25 06:01
Total Bilirubin 0.7 mg/dl (0.2-1.3) 07/21/25 13:06
Direct Bilirubin 0.7 mg/dl (0.0-0.4) H 07/16/25 15:10
AST 14 U/L (14-36) 07/21/25 13:06
ALT < 10 U/L (0-35) 07/21/25 13:06
Alkaline Phosphatase 55 U/L (38-126) 07/21/25 13:06
Total Protein 4.4 g/dl (6.3-8.2) L 07/21/25 13:06
Albumin 2.2 g/dl (3.5-5.0) L 07/21/25 13:06
Physical Exam
-
Gen: NAD
Abd: soft, NT/ND (improved), non-peritoneal, incisions c/d/i - no erythema, ecchymosis or drainage
Patient has a tidwell catheter: No
Patient has a central line: Yes
--- NOTE | 2025-07-23 09:39 | W.PN.ID1 ---
Date of Service
Date of Service: July 23, 2025
Today's Communication
Continue Zosyn.
Assessment / Plan
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
- s/p intravascular lithotripsy to SMA calcified stenosis/occlusion (07/16/2025)
A-fib with RVR.
GI bleed
Leukocytosis
C. difficile antigen (+) / toxin (-)
Diarrhea
Aortic Stenosis
Hypertension
HFpEF
Paroxysmal Atrial Fibrillation
DM-II
Panhypopituitarism (Rathke's Cleft Cyst)
Hypothyroidism
Adrenal Insufficiency
Recurrent UTIs
Diverticular Disease
Recommendations:
Continue Zosyn 3.375 gm IV q.6 h (d#12)
Continue oral vancomycin
Leukocytosis with continued improvement today.
Continue to monitor white count and temperature curve.
Continue with supportive measures.
����������������������������������������������������������
Chief Complaint
-: Leukocytosis, Clinical Sepsis and C-diff (colonization)
Subjective / Review of Systems
Patient seen and examined. Reports feeling improved today. Less nausea. Denies abdominal pain. Still with some loose stool.
Review of Systems: No Fever and No Chills
Vital Signs / Physical Exam
Vital Signs
Vital Signs
Temp Pulse Resp BP Pulse Ox
98.6 F 87 14 179/76 99
07/23/25 07:24 07/23/25 09:03 07/23/25 06:30 07/23/25 09:03 07/23/25 06:30
Physical Exam
Constitutional: No Acute Distress and Chronically Ill
Cardiovascular: Regular Rate and S1/S2; Negative S3/S4
Pulmonary: Clear and Symmetric
Gastrointestinal: Soft, Non Tender, Non Distended, Decreased Bowel Sounds, No Rebound and No Guarding
Extremities: Negative Edema or Cyanosis
Skin: Warm and Dry; Negative Rash or Jaundice
Neurological: Awake
Psychological: Calm
Lines: PICC (RUE; exit site without erythema)
Objective Data
Lab Data
Lab Results
07/23/25 06:01
07/23/25 06:01
PT Cancelled 07/21/25 14:11
INR Cancelled 07/21/25 14:11
APTT 52.4 Sec (23.4-35.0) H 07/23/25 06:01
Estimated Creat Clear 88 ml/min 07/23/25 06:01
Lactic Acid 0.8 mmol/L (0.7-2.0) 07/22/25 08:29
Total Bilirubin 0.7 mg/dl (0.2-1.3) 07/21/25 13:06
AST 14 U/L (14-36) 07/21/25 13:06
ALT < 10 U/L (0-35) 07/21/25 13:06
Alkaline Phosphatase 55 U/L (38-126) 07/21/25 13:06
Most recent labs reviewed.
Micro Results:
07/12/25 17:06 Blood Culture - Final
Blood/Venous No Growth - Final Report
07/11/25 19:37 Blood Culture - Final
Blood/Venous No Growth - Final Report
07/11/25 19:37 Blood Culture - Final
Blood/Venous No Growth - Final Report
07/12/25 11:37 Salmonella/Shigella Culture - Final
Feces/Stool No Salmonella, Shigella, Aeromonas or Plesiomonas species
isolated.
Campylobacter Culture - Final
No Campylobacter species isolated.
- Final
NO YERSINIA SPECIES ISOLATED
Shiga Toxin Test - Final
No E. coli Shiga Toxin 1 or 2 detected.
Stool Leukocytes - Final
07/12/25 11:37 Cryptosporidium/Giardia - Final
Feces/Stool Negative for Cryptosporidium and/or Giardia Lamblia
antigens.
C. difficile GDH Antigen & Toxins - Final
C. difficile antigen positive, toxin negative.
Clostridium difficile present, but toxin not detected.
Patient may be a carrier, colonized with nontoxinogenic
strain or the level of toxin in sample is below detection
limits. This information should be used in conjunction with
the patient's clinical history.
- Final
Negative for Norovirus GI and GII.
Imaging:
07/16/2025 CT abdomen/pelvis angio: severe acute small bowel ischemia with pneumatosis is noted. Moderate mesenteric edema, and small volume ascites noted. There is complete occlusion of the superior mesenteric artery. Severe calcific
atherosclerotic plaque in the abdominal aorta and iliac arteries. Moderate diverticulosis in the descending colon. Please see full dictation for additional detail.
07/11/2025 CT abdomen/pelvis without contrast: evaluation is limited without intravenous or oral contrast. No gross focal intrinsic abnormality of the unopacified liver, spleen, pancreas, kidneys or adrenal glands. No significant perinephric
stranding. Small gallstones are seen within a borderline prominent gallbladder. No biliary tract dilatation. Evaluation of the intestinal tract is markedly limited, but no intestinal obstruction or free air is noted. Please see full dictation
for additional detail.
Care Review
Plan reviewed with: Physician (Critical Care; General Surgery)
--- NOTE | 2025-07-23 10:27 | CM ---
Addendum entered by Yoel Gibson 07/23/25 10:28:
Medicare[employer] list explained and provided to patient with family in room.
Original Note:
07/22/2025 4:02 PM (ET) Yoel Gibson:
WBC slowly trending down 15.9 today, TPN, IV/Solu-Cortef and IV/Zosyn. Discharge POC: Therapy recommending SNF. Will provide Medicare[employer]Gov list.
[2025-07-23] MEDS: HEPARIN 6400 UNITS IV (10:32)
[2025-07-23 12:01] LABS: Glucose - Point of Care 254 mg/dl (70-99)
[2025-07-23] MEDS: LOTRIMIN 1% CREAM 1 APPLIC TOPICAL ×2 (12:07→19:20)
[2025-07-23] MEDS: POTASSIUM PHOSPHATE 256.8182 MEQ IV (12:08)
[2025-07-23] MEDS: NOVOLOG FLEXPEN-LOW RESISTANCE 3 UNITS SC (12:09)
[2025-07-23] MEDS: NOVOLOG FLEXPEN 10 UNITS SC ×2 (12:10→17:40)
--- NOTE | 2025-07-23 13:00 | PTCARENOTE ---
pt had large amt of liquid green stool , fecal inconstance pouch leaking , removed and fecal management system inserted , pt is now oob in chair tolerated well with transfer with walker , heparin gtt continues as ordered for DVT / PE protocol , pt
is now written for IMU level of care
--- NOTE | 2025-07-23 14:03 | PN.CDI ---
Addendum entered and electronically signed by Jenni Ngo MD 07/23/25 14:43:
TME only
Original Note:
CDI
- -
CDI:
Physician Documentation Request
Admit Date: 07/11/25 21:49
Dear Doctor Jeni,
Patient admitted for sepsis.
07/21 PCN: 'received pt at 1445 from rapid response with change in LOC...she had 0.4 mg of IV Narcan with little response at 1453 then additional 1.0 mg at 1500 with good results . she was awake and conversant with medical l staff'
07/23 Hospitalist PN: 'Change in mental status on 07/21...Toxic metabolic encephalopathy secondary to combination of adrenal insufficiency and Dilaudid use. Started on stress dose corticosteroid and she is doing better/much improved'
Based on the above, could you clarify in the progress notes, the appropriate diagnosis, if significant, that supports the above abnormalities and additional evaluation, monitoring and/or treatment rendered:
Opioid overdose
TME only
Other
Use of terms such as suspected, likely, concern for, or probable (associated with a specific diagnosis that is being evaluated, monitored, or treated as if it exists) are acceptable and can be coded in the inpatient setting, when documented at the
time of discharge.
Thank you,
Karen Cunha RN, BSN
CDI Specialist
Available via [facility] text
Please use your independent medical judgment in providing your response.
[2025-07-23] MEDS: HEPARIN 25000 UNITS/250 ML IV (14:22)
--- NOTE | 2025-07-23 14:55 | CM ---
WBC-13.8, TPN, trials of clear liquids, IV/Solu-Cortef/Zosyn. Discharge POC: SNF. Medicare. Gov list reviewed and preliminary referrals forwarded.
[2025-07-23 17:19] LABS: APTT 172.2 Sec (23.4-35.0)
[2025-07-23] MEDS: NOVOLOG FLEXPEN-LOW RESISTANCE 1 UNITS SC (17:39)
[2025-07-23 17:49] LABS: Glucose - Point of Care 166 mg/dl (70-99)
--- NOTE | 2025-07-23 19:15 | PTCARENOTE ---
Patient received lying in bed, awake, alert and oriented. No apparent signs of distress. She currently denies pain. See director of assessment charted on worklist flowsheet. Patient assisted to Bathroom with rolling walker. Gait slow but steady. Incontinent
of stool before making it to the toilet. Patient voids without difficulty. Assisted with perineal care and hygiene, assisted back to bed. BBS clear except right base diminished. S1S2 regular with positive murmur. SR with BBB on CM. Abdomen soft and
nontender with hyperactive bowel sounds. Laparoscopic sites x 4 on abdomen with dermabond CDI. Left arm incision approximated with dermabond, CDI. Patient with large amount of ecchymosis on left arm that extends from bicep to hand. Right triple
lumen PICC with TPN, Heparin gtt and KVO NS infusing. Bed in low and locked position, call chew within reach.
[2025-07-23] MEDS: Parenteral Nutrition, Central 1280 IV (20:52)
[2025-07-24] VITALS (14 sets, daily range): BP systolic 110–193; BP diastolic 52–91; BMI 30.2
--- NOTE | 2025-07-24 | PTCARENOTE ---
Patient incontinent of large amount of urine with small amount of stool. Assisted to BSC. Voided with small amount of stool. Skin care given, perineal care. Partial linen change. Assisted back to bed. Afebrile. VSS. Remains SR on CM. No other change
in patient physical assessment. Denies pain, denies abdominal pain, Nausea. Labs drawn per order.
[2025-07-24] MEDS: FIRVANQ 125 MG PO ×5 (00:09→23:47)
[2025-07-24] MEDS: SOLU-CORTEF 25 MG IV ×3 (00:10→12:41)
[2025-07-24] MEDS: NOVOLOG FLEXPEN-LOW RESISTANCE 1 UNITS SC ×3 (00:11→12:42)
[2025-07-24] MEDS: NOVOLOG FLEXPEN 10 UNITS SC ×5 (00:17→23:46)
[2025-07-24] MEDS: ZOSYN 50 IV ×5 (00:21→23:47)
[2025-07-24 00:27] LABS: Glucose - Point of Care 190 mg/dl (70-99)
[2025-07-24 01:00] LABS: APTT > 200 Sec (23.4-35.0)
[2025-07-24 01:37] LABS: APTT 116.1 Sec (23.4-35.0)
[2025-07-24] MEDS: SYNTHROID 75 MCG PO (05:23)
[2025-07-24 05:55] LABS: Hematocrit 29.7 % (37.0-47.0); Hemoglobin 9.6 g/dL (12.0-16.0); Mean Corp Hgb Conc. 32.3 g/dL (33.0-37.0); Mean Corpuscular Volume 92.0 fL (81.0-99.0); Platelet Count 282 10^3/uL (130-400); Red Cell Dist. Width 18.8 % (11.5-14.5)
[2025-07-24 06:20] LABS: Magnesium 1.9 mg/dl (1.6-2.3)
[2025-07-24 06:37] LABS: Glucose - Point of Care 193 mg/dl (70-99)
--- NOTE | 2025-07-24 07:02 | PTCARENOTE ---
Report given verbally to oncoming shift, Mira. Bedside rounds complete. Questions answered.
--- NOTE | 2025-07-24 08:15 | W.PN.ID1 ---
Date of Service
Date of Service: July 24, 2025
Today's Communication
Continue antibiotics.
Assessment / Plan
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
- s/p intravascular lithotripsy to SMA calcified stenosis/occlusion (07/16/2025)
A-fib with RVR.
GI bleed
Leukocytosis
C. difficile antigen (+) / toxin (-)
Diarrhea
Aortic Stenosis
Hypertension
HFpEF
Paroxysmal Atrial Fibrillation
DM-II
Panhypopituitarism (Rathke's Cleft Cyst)
Hypothyroidism
Adrenal Insufficiency
Recurrent UTIs
Diverticular Disease
Recommendations:
Leukocytosis with continued improvement today.
Continue Zosyn 3.375 gm IV q.6 h (d#13)
Continue enteral vancomycin
Continue to monitor white count and temperature curve.
Continue with supportive measures.
����������������������������������������������������������
Chief Complaint
-: Leukocytosis, Clinical Sepsis and C-diff (colonization)
Subjective / Review of Systems
Patient seen and examined. Reports feeling well this a.m. No nausea or vomiting. No abdominal pain.
Vital Signs / Physical Exam
Vital Signs
Vital Signs
Temp Pulse Resp BP Pulse Ox
98 F 76 19 163/68 99
07/24/25 03:52 07/24/25 07:00 07/24/25 07:00 07/24/25 05:00 07/24/25 04:00
Physical Exam
Constitutional: No Acute Distress and Chronically Ill
Cardiovascular: Regular Rate and S1/S2; Negative S3/S4
Pulmonary: Clear and Symmetric
Gastrointestinal: Soft, Non Tender, Non Distended, Decreased Bowel Sounds, No Rebound and No Guarding
Extremities: Negative Edema or Cyanosis
Skin: Warm and Dry; Negative Rash or Jaundice
Neurological: Awake
Psychological: Calm
Lines: PICC (RUE; exit site without erythema)
Objective Data
Lab Data
Lab Results
07/24/25 05:40
07/23/25 06:01
PT Cancelled 07/21/25 14:11
INR Cancelled 07/21/25 14:11
APTT 116.1 Sec (23.4-35.0) H 07/24/25 01:10
Estimated Creat Clear 88 ml/min 07/23/25 06:01
Lactic Acid 0.8 mmol/L (0.7-2.0) 07/22/25 08:29
Total Bilirubin 0.7 mg/dl (0.2-1.3) 07/21/25 13:06
AST 14 U/L (14-36) 07/21/25 13:06
ALT < 10 U/L (0-35) 07/21/25 13:06
Alkaline Phosphatase 55 U/L (38-126) 07/21/25 13:06
Most recent labs reviewed.
Micro Results:
07/12/25 17:06 Blood Culture - Final
Blood/Venous No Growth - Final Report
07/11/25 19:37 Blood Culture - Final
Blood/Venous No Growth - Final Report
07/11/25 19:37 Blood Culture - Final
Blood/Venous No Growth - Final Report
07/12/25 11:37 Salmonella/Shigella Culture - Final
Feces/Stool No Salmonella, Shigella, Aeromonas or Plesiomonas species
isolated.
Campylobacter Culture - Final
No Campylobacter species isolated.
- Final
NO YERSINIA SPECIES ISOLATED
Shiga Toxin Test - Final
No E. coli Shiga Toxin 1 or 2 detected.
Stool Leukocytes - Final
07/12/25 11:37 Cryptosporidium/Giardia - Final
Feces/Stool Negative for Cryptosporidium and/or Giardia Lamblia
antigens.
C. difficile GDH Antigen & Toxins - Final
C. difficile antigen positive, toxin negative.
Clostridium difficile present, but toxin not detected.
Patient may be a carrier, colonized with nontoxinogenic
strain or the level of toxin in sample is below detection
limits. This information should be used in conjunction with
the patient's clinical history.
- Final
Negative for Norovirus GI and GII.
Imaging:
07/16/2025 CT abdomen/pelvis angio: severe acute small bowel ischemia with pneumatosis is noted. Moderate mesenteric edema, and small volume ascites noted. There is complete occlusion of the superior mesenteric artery. Severe calcific
atherosclerotic plaque in the abdominal aorta and iliac arteries. Moderate diverticulosis in the descending colon. Please see full dictation for additional detail.
07/11/2025 CT abdomen/pelvis without contrast: evaluation is limited without intravenous or oral contrast. No gross focal intrinsic abnormality of the unopacified liver, spleen, pancreas, kidneys or adrenal glands. No significant perinephric
stranding. Small gallstones are seen within a borderline prominent gallbladder. No biliary tract dilatation. Evaluation of the intestinal tract is markedly limited, but no intestinal obstruction or free air is noted. Please see full dictation
for additional detail.
--- NOTE | 2025-07-24 08:34 | PTCARENOTE ---
Plan discussed with CRC team and attending, pt ok for Full liquid diet with Ensure clear jacobson BID, and transition to OAC. Dr. Ngo updated via TT> awaiting orders at this time. Pt and updated and in agreement.
[2025-07-24] MEDS: ELIQUIS 5 MG PO ×2 (08:51→20:12)
[2025-07-24] MEDS: VITAMIN B1 100 MG PO (08:51)
[2025-07-24] MEDS: TOPROL XL 25 MG PO ×2 (08:51→20:09)
[2025-07-24] MEDS: CRESTOR 20 MG PO (08:51)
[2025-07-24] MEDS: PLAVIX 75 MG PO (08:51)
[2025-07-24] MEDS: LOTRIMIN 1% CREAM 1 APPLIC TOPICAL (08:52)
[2025-07-24] MEDS: PROTONIX IV 40 MG IV ×2 (08:52→20:12)
[2025-07-24] MEDS: NSS (PRESERVATIVE FREE) 10 ML IV ×2 (08:52→20:11)
--- NOTE | 2025-07-24 09:00 | PTCARENOTE ---
Pt was rec'd from night RN, AOx3 pleasant and cooperative. Heparin and TPN infusing via R TL PICC as ordered on handoff. Assessment as documented, plan of care discussed. Pt anxious to increase diet today. Dr. Ngo and Dr. Ulrich rounding on
patient, orders rec'd, heparin gtt dc'd and transitioned to Eliquis. FLD with ENsure clear jacobson BID ordered per CRS team. Pt arrived, call chew in reach, safe environment maintained.
--- NOTE | 2025-07-24 09:49 | W.PN.HOSP.TC ---
Today's Communication/Plan
-
Ok to change to Eliquis
Hope to wean off TPN Saturday
Move to IMU if tolerates full liquids
Assessment / Plan
Assessment / Plan
Physical Exam
General: No acute distress,
HEENT: Normocephalic, Atraumatic, EOMI, MMM
Respiratory: Clear to Auscultation bilaterally
Cardiac: Normal S1/S2, RRR
GI: Soft, not distended, no tenderness,
Incisions clean/dry/intact
Extremities: No Clubbing, Cyanosis
Moderate edema noted
Neuro: AAOX3, followed commands. Non focal.
Psych : calm
HPI: 69y F with PMH significant for s/p BioAVR, post-op CVA and subsequent hospitalization for CHF who presents to ED complaining of N/V/D since last PM.
# Change in mental status on 07/21
After ruling out hemodynamic instability, code stroke was called. Stroke was ruled out by examination and imaging studies
Toxic metabolic encephalopathy secondary to combination of adrenal insufficiency and Dilaudid use
Started on stress dose corticosteroid and she is doing better/much improved
#Sepsis POA, she met criteria of sepsis on admission. Initial Dx was acute infectious gastroenteritis, Lactic acidosis but CT angio was done when her kidney function back to normal and that showed ischemic bowel. In OR, no bowel resection was
needed, at same time, vascular did intravascular lithotripsy to SMA, balloon angioplasty with stenting proximal superior mesenteric artery. Recommended to continue to treat as infection gastroenteritis after OR.
- Lactic acidosis resolved.
- Stool studies positive for C. difficile antigen, negative for toxin
- Appreciate ID input, continue IV Zosyn, oral vancomycin
#Severe acute small bowel ischemia secondary to complete occlusion of the SMA artery with severe underlying PAD
Much improved
- Appreciate vascular surgery input, s/p emergent intravascular lithotripsy to SMA + balloon angioplasty and stenting of proximal SMA 07/16
patient started to have pain/N/V. Repeat CT 07/20 showed continued moderate bowel wall thickening as well as mesentery stranding of the cecum and terminal ileum. Surgery: positive small ischemic changes. Recommended to change to IV Heparin gtt,
NPO/ TPN/.
After few days, Normal Lactic acid, WBC coming down, we continue to advance diet as tolerated.
per surgery: can change back to Eliquis
# Fecal management system, consulted wound care
#Hemorrhagic shock
- Resolved
Acute urinary retention
encourage ambulation, bladder scan protocol
Flomax
#Episode of SVT
c/w BB
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
Worsening anemia, due to sepsis, acute blood loss, and anemia of chronic disease
- Appreciate hematology input, due to sepsis, acute blood loss, mild hemolysis, and anemia of chronic disease
- Status post 4 units packed red blood cells, 2 units of FFP on 07/16
-transfuse as needed
Hypomagnesemia
Hypokalemia
Coffee-ground emesis
- Started on Protonix 40 mg IV twice daily
Paroxysmal Atrial Fibrillation with rapid ventricular response
- Due to sepsis. Change IV heparin drip to Eliquis
- Appreciate cardiology input, converted to normal sinus rhythm s/p diltiazem drip
- Change IV metoprolol back to her home dose of Toprol XL 25 mg BID
Aortic Stenosis s/p BioAVR
Mild acute on Chronic HFpEF
- Stable. No evidence of volume overload on exam.
- Hold Farxiga
- Give 1 dose of Lasix 40 mg IV x 1 for edema, resumed home Lasix 20 mg p.o. daily
S/p CVA
- CVA POD #1 after AVR. Transferred to [place] for TCAR.
- No new neurologic deficits.
- Continue Plavix
PANTERA
- Likely due to dehydration +/- Bactrim use / med effect
Resolved
Hypophosphatemia
Hypomagnesemia
Hyponatremia
Hypokalemia
- Replete as needed
Prolonged QTc
Mild
- Continue Tigan IM as needed
Panhypopituitarism
Adrenal Insufficiency
Hypothyroidism
- Patient maintained on hydrocortisone daily.
- Given acute illness, hypotension, etc
- Change back po hydrocortisone
- Continue current T4 replacement
DM-II
- Hemoglobin A1c 5.7. Hold PO metformin acutely.
- Follow glucose and cover with SSI as needed - especially on higher dose steroids.
Frequent UTIs
- UA not suggestive of UTI at present.
- Just completed 3 day course of Bactrim on .
- Continue methenamine for prevention and monitor for any symptoms.
DVT Prophylaxis: Change IV heparin drip to Eliquis
Code Status: Full
Total time spent to see the patient, examine the patient, review data and lab results, discuss treatment plan with patient, nursing staff around 55 minutes
Anticipated Discharge: > 48 hours
Subjective/Interval History
-
Date of Service: July 24, 2025
No chest pain
No sob
No fevers
Objective Data
-
Labs:
Laboratory Results
07/24/25 07/24/25 07/24/25
00:15 01:10 05:40
WBC 12.2 H
Hgb 9.6 L
Hct 29.7 L
Plt Count 282
APTT > 200 H* 116.1 H
07/24/25
07:40
WBC
Hgb
Hct
Plt Count
APTT Pending
Vital Signs:
Vital Signs
Temp Pulse Resp BP Pulse Ox
98.4 F 75 13 164/72 99
07/24/25 08:15 07/24/25 08:23 07/24/25 08:23 07/24/25 08:23 07/24/25 04:00
I&O
07/23/25 07/24/25 07/25/25
06:59 06:59 06:59
Intake Total 2773 / 2838 5776 / 6320 608 / 608
Output Total 2700 / 2700 2150 / 2150
Balance 73 / 138 3626 / 4170 608 / 608
--- NOTE | 2025-07-24 12:14 | W.PN.GS2 ---
Today's Communication / Plan
-
-- Full liquids with Ensure
-- Continued TPN today and discontinue tomorrow if tolerating diet.
-- Anticoagulation: Eliquis
-- Trend labs including WBC and Hb (would consider higher transfusion goals with cardiac history for O2 carrying capacity)
Assessment / Plan
-
Patient is a 69 yo F p/w acute mesenteric ischemia
POD #8 status post diagnostic laparoscopy with bowel edema, but no advanced/irreversible ischemia
POD #8 status post angiogram, angioplasty and SMA stent placement
Afebrile, BP improved off pressors
Labs notable for elevated WBC (trending down), stable Hb (drift down likely due to hydration), normal electrolytes and renal function
Therapeutic on heparin drip.
Plan:
-- Advance to full liquids.
-- Continue with TPN today.
-- Abx: PO Vancomycin and Zosyn, biggest indication at this time is translocation
-- Anticoagulation: transition to Eliquis
-- Trend labs including WBC and Hb (would consider higher transfusion goals with cardiac history for O2 carrying capacity)
-- Medical management as per primary
Subjective Data
-
Date of Service: July 24, 2025
She denies any abdominal pain and is tolerating clear liquids well. She continues to move her bowels and they are loose (as expected) and nonbloody. She is hungry.
Objective Data
-
Intake and Output
07/23/25 07/24/25 07/25/25
06:59 06:59 06:59
Intake Total 2773 / 2838 5776 / 6320 1673 / 167
Output Total 2700 / 2700 2150 / 2150
Balance 73 / 138 3626 / 4170 1673 / 167
Intake:
Oral fluids 480 / 480 3900 / 4380 1440 / 1440
IV fluids (Total) 423 / 435 299 / 310
Sterile Water For Injection 150 / 150
1000 ml 1,000 ml @ 75 mls/hr IV
.[id number] TAMMIE with Sodium
Bicarbonate 150 Meq Rx#:
[id number]
heparin gtt 273 / 285 299 / 310
IV piggybacks 910 / 910 305 / 305
TPN/PPN 960 / 1013 1272 / 1325 212 / 212
Output:
Liquid stool amount 400 / 400 200 / 200
Rectum 400 / 400 200 / 200
Urine, Voided 2300 / 2300 1950 / 1950
Other:
How many times incontinent 1
SMALL amount urine
How many times incontinent 1 1
SATURATED amount urine
Number of approximated MODERATE 1
amounts of urine
Number of unmeasured liquid
stools
Rectum 1 1
Vital Signs
Temp Pulse Resp BP Pulse Ox
98.4 F 70 13 158/86 96
07/24/25 08:15 07/24/25 10:00 07/24/25 10:00 07/24/25 10:00 07/24/25 08:45
Lab Results
07/24/25 05:40
07/23/25 06:01
Calcium 8.3 mg/dl (8.4-10.2) L 07/23/25 06:01
Phosphorus 3.2 mg/dl (2.5-4.5) 07/24/25 05:40
Magnesium 1.9 mg/dl (1.6-2.3) 07/24/25 05:40
Total Bilirubin 0.7 mg/dl (0.2-1.3) 07/21/25 13:06
Direct Bilirubin 0.7 mg/dl (0.0-0.4) H 07/16/25 15:10
AST 14 U/L (14-36) 07/21/25 13:06
ALT < 10 U/L (0-35) 07/21/25 13:06
Alkaline Phosphatase 55 U/L (38-126) 07/21/25 13:06
Total Protein 4.4 g/dl (6.3-8.2) L 07/21/25 13:06
Albumin 2.2 g/dl (3.5-5.0) L 07/21/25 13:06
Physical Exam
-
Gen: NAD
Abd: soft and nondistended, nontender. Incisions are healing well.
Patient has a tidwell catheter: No
Patient has a central line: Yes
[2025-07-24] MEDS: IMODIUM 2 MG PO ×2 (12:40→20:12)
[2025-07-24] MEDS: DESENEX/MITRAZOL/ZEASORB 1 APPLIC TOPICAL (12:41)
[2025-07-24 12:50] LABS: Glucose - Point of Care 191 mg/dl (70-99)
--- NOTE | 2025-07-24 13:26 | PTCARENOTE ---
Pt again with incontinence of bowel (orangey brown liquid) turned and cleaned, washed with soap and water, moisture barrier cream and antifungal powder applied to abd folds and perianal areas, PRN Immodium administered. Pt states 'this is very
depressing.' Emotional support provided.
--- NOTE | 2025-07-24 16:02 | PTCARENOTE ---
11:30 assumed care. patient in bed; at bedside. AAO x 3.
BP via left FA SBP 130's Normal Sinus Rhythm on telemetry 60's +2 edema b/l LE; pedal pulses + S1/S2 denies chest pain
On RA. No SOB
Abdomen round Diarrhea resolved at this time; Full Liquid diet tolerating; TPN via RT PICC Line
Voiding with no difficulties
Ambulates with supervision requires walker for balance
call chew within reach
[2025-07-24] MEDS: NOVOLOG FLEXPEN-LOW RESISTANCE 3 UNITS SC (18:50)
[2025-07-24] MEDS: SOLU-CORTEF 12.5 MG IV ×2 (18:58→23:47)
[2025-07-24 19:10] LABS: Glucose - Point of Care 257 mg/dl (70-99)
[2025-07-24] MEDS: Parenteral Nutrition, Central 1280 IV (20:12)
[2025-07-24] MEDS: LOTRIMIN 1% CREAM TOPICAL (20:28)
--- NOTE | 2025-07-24 21:56 | PTCARENOTE ---
Received pt resting in bed, AAOx3. Denies pain/SOB. DAS. Assist x1 up to bedside commode. NSR on tele. HR 60s. BP 153/75. +2 LE edema. Afebrile. On RA, spo2 95%. Lungs diminished throughout. Hyperactive bowel sounds. Had 1 episode of diarrhea on
commode -loose/watery brown. Immodium given. No N/V. On full liquid diet. Voided large amt in commode also then was incontinent of urine. Bathed with CHG. R PICC with TPN infusing. Call chew in reach, bed alarm on.
[2025-07-24 23:28] LABS: Glucose - Point of Care 200 mg/dl (70-99)
[2025-07-24] MEDS: NOVOLOG FLEXPEN-LOW RESISTANCE 2 UNITS SC (23:47)
[2025-07-25] VITALS (13 sets, daily range): BP systolic 110–167; BP diastolic 54–91; BMI 31.0; BMI 31.7
[2025-07-25 04:47] LABS: Hematocrit 25.8 % (37.0-47.0); Hemoglobin 8.4 g/dL (12.0-16.0); Mean Corp Hgb Conc. 32.6 g/dL (33.0-37.0); Mean Corpuscular Volume 92.8 fL (81.0-99.0); Platelet Count 256 10^3/uL (130-400); Red Cell Dist. Width 18.6 % (11.5-14.5)
[2025-07-25 05:08] LABS: Blood Urea Nitrogen 12 mg/dl (7-17); Calcium 8.0 mg/dl (8.4-10.2); Carbon Dioxide 31 mmol/L (22-30); Chloride 109 mmol/L (98-107); Estimated Creatinine Clearance 88 ml/min; Glucose 201 mg/dl (70-99); Potassium 3.5 mmol/L (3.5-5.1); Sodium 141 mmol/L (135-145); eGFR > 60.00
[2025-07-25 05:22] LABS: Nucleated Red Blood Cells % 0.2 %
[2025-07-25] MEDS: SYNTHROID 75 MCG PO (05:24)
[2025-07-25] MEDS: FIRVANQ 125 MG PO ×3 (05:24→23:45)
[2025-07-25] MEDS: SOLU-CORTEF 12.5 MG IV ×4 (05:24→23:46)
[2025-07-25] MEDS: ZOSYN 50 IV ×3 (05:25→17:34)
[2025-07-25 05:34] LABS: Glucose - Point of Care 190 mg/dl (70-99)
[2025-07-25] MEDS: IMODIUM 2 MG PO ×2 (05:59→12:22)
[2025-07-25] MEDS: NOVOLOG FLEXPEN-LOW RESISTANCE 1 UNITS SC ×3 (05:59→17:27)
[2025-07-25] MEDS: NOVOLOG FLEXPEN 10 UNITS SC ×3 (05:59→17:28)
--- NOTE | 2025-07-25 06:11 | PTCARENOTE ---
Pt. incontinent large amt urine, saturating bed. Cleaned, new linens. Also incontinent small amt loose brown stool then got to commode and had moderate amt. loose stool. PRN imodium given.
--- NOTE | 2025-07-25 08:30 | W.PN.ID1 ---
Date of Service
Date of Service: July 25, 2025
Today's Communication
Continue antibiotics. See below�
Assessment / Plan
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
- s/p intravascular lithotripsy to SMA calcified stenosis/occlusion (07/16/2025)
A-fib with RVR.
GI bleed
Leukocytosis
C. difficile antigen (+) / toxin (-)
Diarrhea
Aortic Stenosis
Hypertension
HFpEF
Paroxysmal Atrial Fibrillation
DM-II
Panhypopituitarism (Rathke's Cleft Cyst)
Hypothyroidism
Adrenal Insufficiency
Recurrent UTIs
Diverticular Disease
Recommendations:
Leukocytosis normalized today.
Continue Zosyn 3.375 gm IV q.6 h (d#14)
Given normalization of white count, can discontinue after last dose today.
Continue enteral vancomycin.
Continue to monitor white count and temperature curve.
Continue with supportive measures.
����������������������������������������������������������
Chief Complaint
-: Leukocytosis, Clinical Sepsis and C-diff (colonization)
Subjective / Review of Systems
Patient seen and examined. Reports diarrhea today. Denies abdominal pain.
Review of Systems: No Fever and No Chills
Vital Signs / Physical Exam
Vital Signs
Vital Signs
Temp Pulse Resp BP Pulse Ox
98.4 F 69 15 138/54 95
07/25/25 03:29 07/25/25 06:00 07/24/25 15:25 07/25/25 04:00 07/24/25 20:00
Physical Exam
Constitutional: No Acute Distress and Chronically Ill
Cardiovascular: Regular Rate and S1/S2; Negative S3/S4
Pulmonary: Clear and Symmetric
Gastrointestinal: Soft, Non Tender, Non Distended, Normal Bowel Sounds, No Rebound and No Guarding
Extremities: Negative Edema or Cyanosis
Skin: Warm and Dry; Negative Rash or Jaundice
Neurological: Awake
Psychological: Calm
Lines: PICC (RUE; exit site without erythema)
Objective Data
Lab Data
Lab Results
07/25/25 04:34
07/25/25 04:34
PT Cancelled 07/21/25 14:11
INR Cancelled 07/21/25 14:11
APTT Cancelled 07/24/25 07:40
Estimated Creat Clear 88 ml/min 07/25/25 04:34
Lactic Acid 0.8 mmol/L (0.7-2.0) 07/22/25 08:29
Total Bilirubin 0.7 mg/dl (0.2-1.3) 07/21/25 13:06
AST 14 U/L (14-36) 07/21/25 13:06
ALT < 10 U/L (0-35) 07/21/25 13:06
Alkaline Phosphatase 55 U/L (38-126) 07/21/25 13:06
Most recent labs reviewed.
Micro Results:
07/12/25 17:06 Blood Culture - Final
Blood/Venous No Growth - Final Report
07/11/25 19:37 Blood Culture - Final
Blood/Venous No Growth - Final Report
07/11/25 19:37 Blood Culture - Final
Blood/Venous No Growth - Final Report
07/12/25 11:37 Salmonella/Shigella Culture - Final
Feces/Stool No Salmonella, Shigella, Aeromonas or Plesiomonas species
isolated.
Campylobacter Culture - Final
No Campylobacter species isolated.
- Final
NO YERSINIA SPECIES ISOLATED
Shiga Toxin Test - Final
No E. coli Shiga Toxin 1 or 2 detected.
Stool Leukocytes - Final
07/12/25 11:37 Cryptosporidium/Giardia - Final
Feces/Stool Negative for Cryptosporidium and/or Giardia Lamblia
antigens.
C. difficile GDH Antigen & Toxins - Final
C. difficile antigen positive, toxin negative.
Clostridium difficile present, but toxin not detected.
Patient may be a carrier, colonized with nontoxinogenic
strain or the level of toxin in sample is below detection
limits. This information should be used in conjunction with
the patient's clinical history.
- Final
Negative for Norovirus GI and GII.
Imaging:
07/16/2025 CT abdomen/pelvis angio: severe acute small bowel ischemia with pneumatosis is noted. Moderate mesenteric edema, and small volume ascites noted. There is complete occlusion of the superior mesenteric artery. Severe calcific
atherosclerotic plaque in the abdominal aorta and iliac arteries. Moderate diverticulosis in the descending colon. Please see full dictation for additional detail.
07/11/2025 CT abdomen/pelvis without contrast: evaluation is limited without intravenous or oral contrast. No gross focal intrinsic abnormality of the unopacified liver, spleen, pancreas, kidneys or adrenal glands. No significant perinephric
stranding. Small gallstones are seen within a borderline prominent gallbladder. No biliary tract dilatation. Evaluation of the intestinal tract is markedly limited, but no intestinal obstruction or free air is noted. Please see full dictation
for additional detail.
[2025-07-25] MEDS: VITAMIN B1 100 MG PO (09:46)
[2025-07-25] MEDS: PROTONIX IV 40 MG IV (09:46)
[2025-07-25] MEDS: CRESTOR 20 MG PO (09:47)
[2025-07-25] MEDS: NSS (PRESERVATIVE FREE) 10 ML IV (09:47)
[2025-07-25] MEDS: PLAVIX 75 MG PO (09:48)
[2025-07-25] MEDS: TOPROL XL 25 MG PO ×2 (09:48→19:22)
[2025-07-25] MEDS: ELIQUIS 5 MG PO ×2 (09:48→19:22)
[2025-07-25] MEDS: LOTRIMIN 1% CREAM 1 APPLIC TOPICAL (09:50)
--- NOTE | 2025-07-25 09:50 | W.PN.HOSP.TC ---
Today's Communication/Plan
-
Advance to low residue dose
Change to oral PPI
Probiotic
Wean off TPN
Assessment / Plan
Assessment / Plan
Physical Exam
General: No acute distress,
HEENT: Normocephalic, Atraumatic, EOMI, MMM
Respiratory: Clear to Auscultation bilaterally
Cardiac: Normal S1/S2, RRR
GI: Soft, not distended, no tenderness,
Incisions clean/dry/intact
Extremities: No Clubbing, Cyanosis
Moderate edema noted
Neuro: AAOX3, followed commands. Non focal.
Psych : calm
HPI: 69y F with PMH significant for s/p BioAVR, post-op CVA and subsequent hospitalization for CHF who presents to ED complaining of N/V/D since last PM.
#Sepsis POA, resolved.
WBC normal.
- Lactic acidosis resolved.
- Stool studies positive for C. difficile antigen, negative for toxin
- Appreciate ID input, continue IV Zosyn, oral vancomycin
#Severe acute small bowel ischemia secondary to complete occlusion of the SMA artery with severe underlying PAD
Much improved, d/w surgery 07/25, advance to LRD and stop TPN.
- Appreciate vascular surgery input, s/p emergent intravascular lithotripsy to SMA + balloon angioplasty and stenting of proximal SMA 07/16
per surgery: can change back to Eliquis
# Change in mental status on 07/21, resolved.
After ruling out hemodynamic instability, code stroke was called. Stroke was ruled out by examination and imaging studies
Toxic metabolic encephalopathy secondary to combination of adrenal insufficiency and Dilaudid use
Started on stress dose corticosteroid and she is doing better/much improved, reducing steroid dose, hope to resume oral dose in 48-72 hours.
PMH: Panhypopituitarism/ Adrenal Insufficiency
#Hemorrhagic shock
- Resolved
Acute urinary retention
Resolved.
#Episode of SVT
c/w BB
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
# Worsening anemia, due to sepsis, acute blood loss, and anemia of chronic disease
- Appreciate hematology input, due to sepsis, acute blood loss, mild hemolysis, and anemia of chronic disease
- Status post 4 units packed red blood cells, 2 units of FFP on 07/16
-transfuse as needed
Hypomagnesemia
Hypokalemia
Coffee-ground emesis, resolved, tolerating oral intake.
- Started on Protonix 40 mg IV twice daily, change to oral QD.
Paroxysmal Atrial Fibrillation with rapid ventricular response
Controlled, c/w BB, Eliquis.
Aortic Stenosis s/p BioAVR
Mild acute on Chronic HFpEF
- Stable. No evidence of volume overload on exam.
- Hold Farxiga
- Give 1 dose of Lasix 40 mg IV x 1 for edema, resumed home Lasix 20 mg p.o. daily
S/p CVA
- CVA POD #1 after AVR. Transferred to [place] for TCAR.
- No new neurologic deficits.
- Continue Plavix
PANTERA
- Likely due to dehydration +/- Bactrim use / med effect
Resolved
Hypophosphatemia
Hypomagnesemia
Hyponatremia
Hypokalemia
- Replete as needed
Prolonged QTc
Mild
- Continue Tigan IM as needed
Hypothyroidism
- Continue current T4 replacement
DM-II
Reduce insulin ATC while off TPN
Frequent UTIs
DVT Prophylaxis: Eliquis
Code Status: Full
Total time spent to see the patient, examine the patient, review data and lab results, discuss treatment plan with patient, nursing staff around 55 minutes
Anticipated Discharge: > 48 hours
Subjective/Interval History
-
Date of Service: July 25, 2025
No abdominal pain
No fever
No nausea
Objective Data
-
Labs:
Laboratory Results
07/25/25
04:34
WBC 8.6
Hgb 8.4 L
Hct 25.8 L
Plt Count 256
Sodium 141
Potassium 3.5
Chloride 109 H
Carbon Dioxide 31 H
BUN 12
Creatinine 0.5 L
Glucose 201 H
Calcium 8.0 L
Vital Signs:
Vital Signs
Temp Pulse Resp BP Pulse Ox
98.4 F 69 15 138/54 95
07/25/25 03:29 07/25/25 06:00 07/24/25 15:25 07/25/25 04:00 07/24/25 20:00
I&O
07/24/25 07/25/25 07/26/25
06:59 06:59 06:59
Intake Total 5776 / 6320 3924 / 3924
Output Total 2150 / 2150 800 / 800
Balance 3626 / 4170 3124 / 3124
--- NOTE | 2025-07-25 11:42 | W.PN.GS2 ---
Today's Communication / Plan
-
low residue diet
allow tpn to run out and then stop
Assessment / Plan
-
Patient is a 69 yo F p/w acute mesenteric ischemia
POD #9 status post diagnostic laparoscopy with bowel edema, but no advanced/irreversible ischemia
POD #9 status post angiogram, angioplasty and SMA stent placement
Afebrile, BP improved off pressors
WBC 8.6, Hgb 8.4 (9.6, 9.2)
Eliquis 5mg BID
Plan:
-- Advance to low residue diet, okay to have a banana (see order)
-- Allow tpn to run out today at 9pm and then will not reorder.
-- Abx: PO Vancomycin and Zosyn, biggest indication at this time is translocation
-- Anticoagulation: transited to Eliquis
-- Trend labs including WBC and Hb (would consider higher transfusion goals with cardiac history for O2 carrying capacity)
-- Medical management as per primary
Subjective Data
-
Date of Service: July 25, 2025
Patient states she is very hungry. Denies nausea or vomiting. Tolerated fulls. Denies pain.
Objective Data
-
Intake and Output
07/24/25 07/25/25 07/26/25
06:59 06:59 06:59
Intake Total 5776 / 6320 3924 / 3924
Output Total 2150 / 2150 800 / 800
Balance 3626 / 4170 3124 / 3124
Intake:
Oral fluids 3900 / 4380 2636 / 2636
IV fluids (Total) 299 / 310
heparin gtt 299 / 310
IV piggybacks 305 / 305 100 / 100
TPN/PPN 1272 / 1325 1166 / 1166
Output:
Liquid stool amount 200 / 200
Rectum 200 / 200
Urine, Voided 1949 800 / 800
Other:
How many times incontinent 1
SMALL amount urine
How many times incontinent 1
MODERATE amount urine
How many times incontinent 1 2
SATURATED amount urine
Number of approximated MODERATE 1
amounts of urine
Number of approximated LARGE 1 1
amounts of urine
Number of unmeasured liquid
stools
Rectum 1 2
Vital Signs
Temp Pulse Resp BP Pulse Ox
98.6 F 69 15 159/87 95
07/25/25 11:38 07/25/25 10:00 07/24/25 15:25 07/25/25 10:00 07/24/25 20:00
Lab Results
07/25/25 04:34
07/25/25 04:34
Calcium 8.0 mg/dl (8.4-10.2) L 07/25/25 04:34
Phosphorus 3.2 mg/dl (2.5-4.5) 07/24/25 05:40
Magnesium 1.9 mg/dl (1.6-2.3) 07/24/25 05:40
Total Bilirubin 0.7 mg/dl (0.2-1.3) 07/21/25 13:06
Direct Bilirubin 0.7 mg/dl (0.0-0.4) H 07/16/25 15:10
AST 14 U/L (14-36) 07/21/25 13:06
ALT < 10 U/L (0-35) 07/21/25 13:06
Alkaline Phosphatase 55 U/L (38-126) 07/21/25 13:06
Total Protein 4.4 g/dl (6.3-8.2) L 07/21/25 13:06
Albumin 2.2 g/dl (3.5-5.0) L 07/21/25 13:06
Physical Exam
-
Gen: NAD
Abd: soft and nondistended, nontender. Incisions are healing well.
Patient has a tidwell catheter: No
Patient has a central line: Yes
[2025-07-25 12:11] LABS: Glucose - Point of Care 196 mg/dl (70-99)
[2025-07-25] MEDS: VISBIOME 1 CAP PO (12:22)
--- NOTE | 2025-07-25 16:30 | PTCARENOTE ---
pt on low residual diet. Large amount of watery stool shortly after meal. Imodium was administered prior to meal
[2025-07-25] MEDS: FIRVANQ PO (16:34)
[2025-07-25 17:47] LABS: Glucose - Point of Care 172 mg/dl (70-99)
[2025-07-25] MEDS: LOTRIMIN 1% CREAM TOPICAL (20:52)
--- NOTE | 2025-07-25 22:00 | PTCARENOTE ---
Pt transferred to [id number]. Belongings sent with pt. Report given to MAX Avendano.
--- NOTE | 2025-07-25 22:30 | PTCARENOTE ---
Received patient from ICU. Report given from Laly SANTANA. Pt AAOx3, slightly drowsy. NSR on the monitor. +2 LE edema. On RA, SpO2 95%. Hyperactive bowel sounds. Lap sites C/D/I intact with surgical glue. Pt denies N/V. Pt weaned off TPN this evening.
Low residue diet. Groin/perineum reddened. Calazime generously applied. Purewick in place. Full CHG bath done. Able to make needs known, call chew within reach.
[2025-07-25 22:42] LABS: Glucose - Point of Care 124 mg/dl (70-99)
[2025-07-26] VITALS (25 sets, daily range): BP systolic 104–156; BP diastolic 45–83; PULSE 75; BMI 31.1
[2025-07-26] MEDS: NOVOLOG FLEXPEN SC (00:30)
[2025-07-26 05:13] LABS: Hematocrit 28.1 % (37.0-47.0); Hemoglobin 9.2 g/dL (12.0-16.0); Mean Corp Hgb Conc. 32.7 g/dL (33.0-37.0); Mean Corpuscular Volume 94.6 fL (81.0-99.0); Platelet Count 271 10^3/uL (130-400); Red Cell Dist. Width 18.8 % (11.5-14.5)
[2025-07-26 05:49] LABS: ALT (SGPT) 14 U/L (0-35); AST (SGOT) 18 U/L (14-36); Albumin 2.5 g/dl (3.5-5.0); Alkaline Phosphatase 47 U/L (38-126); Blood Urea Nitrogen 11 mg/dl (7-17); Calcium 8.2 mg/dl (8.4-10.2); Carbon Dioxide 32 mmol/L (22-30); Chloride 107 mmol/L (98-107); Estimated Creatinine Clearance 89 ml/min; Glucose 111 mg/dl (70-99); Magnesium 1.8 mg/dl (1.6-2.3); Potassium 3.6 mmol/L (3.5-5.1); Sodium 139 mmol/L (135-145); Total Protein 4.8 g/dl (6.3-8.2); Triglycerides 106 mg/dl (10-149); eGFR > 60.00
[2025-07-26] MEDS: FIRVANQ 125 MG PO ×3 (05:56→17:19)
[2025-07-26] MEDS: SYNTHROID 75 MCG PO (05:56)
[2025-07-26] MEDS: SOLU-CORTEF 12.5 MG IV ×3 (05:56→20:06)
[2025-07-26 07:58] LABS: Glucose - Point of Care 120 mg/dl (70-99)
--- NOTE | 2025-07-26 09:28 | W.PN.HOSP.TC ---
Today's Communication/Plan
-
see bold
Assessment / Plan
Assessment / Plan
HPI: 69y F with PMH significant for s/p BioAVR, post-op CVA and subsequent hospitalization for CHF who presents to ED complaining of N/V/D since last PM.
Assessment/plan:
#Sepsis POA, resolved.
- Lactic acidosis resolved.
- Stool studies positive for C. difficile antigen, negative for toxin
- Appreciate ID input, Zosyn completed on 07/25, continue oral vancomycin
#Severe acute small bowel ischemia secondary to complete occlusion of the SMA artery with severe underlying PAD
- Appreciate vascular surgery input, s/p emergent intravascular lithotripsy to SMA + balloon angioplasty and stenting of proximal SMA 07/16
- Tolerating low residue diet, status post TPN
- Continue Eliquis and Plavix
# Change in mental status on 07/21, resolved.
After ruling out hemodynamic instability, code stroke was called. Stroke was ruled out by examination and imaging studies
Toxic metabolic encephalopathy secondary to combination of adrenal insufficiency and Dilaudid use
Started on stress dose corticosteroid and she is doing better/much improved, reducing steroid dose, hope to resume oral dose in 48-72 hours.
PMH: Panhypopituitarism/ Adrenal Insufficiency
#Hemorrhagic shock
- Resolved
#Acute urinary retention
Resolved.
#Episode of SVT
Seen by cardiology, who recommends continuing her beta-keanu, they have signed off
# Worsening anemia, due to sepsis, acute blood loss, and anemia of chronic disease
- Appreciate hematology input, due to sepsis, acute blood loss, mild hemolysis, and anemia of chronic disease
- Status post 4 units packed red blood cells, 2 units of FFP on 07/16
- Monitor hemoglobin, transfuse as needed
#Hypomagnesemia
#Hypokalemia
#Hypophosphatemia
Replete as needed
#Coffee-ground emesis, resolved, tolerating oral intake.
- Started on Protonix 40 mg IV twice daily, change to oral QD.
#Paroxysmal Atrial Fibrillation with rapid ventricular response
Controlled, c/w BB, Eliquis.
Aortic Stenosis s/p BioAVR
Mild acute on Chronic HFpEF
- Stable. No evidence of volume overload on exam.
- Hold Farxiga
- Give 1 dose of Lasix 40 mg IV x 1 for edema
S/p CVA
- CVA POD #1 after AVR. Transferred to [place] for TCAR.
- No new neurologic deficits.
- Continue Plavix
PANTERA
- Likely due to dehydration +/- Bactrim use / med effect
Resolved
Prolonged QTc
Mild
- Continue Tigan IM as needed
Hypothyroidism
- Continue current T4 replacement
DM-II
-Continue sliding scale insulin
Frequent UTIs
DVT Prophylaxis: Eliquis
Code Status: Full
Dispo - PT rec SNF
Updated at bedside 07/26
Total time spent to see the patient on the floor, examine the patient, review data and lab results, discuss treatment plan with patient, nursing staff around 50 minutes.
Physical Exam
General: No acute distress,
HEENT: Normocephalic, Atraumatic, EOMI, MMM
Respiratory: Clear to Auscultation bilaterally
Cardiac: Normal S1/S2, RRR
GI: Soft, not distended, no tenderness,
Incisions clean/dry/intact
Extremities: No Clubbing, Cyanosis
Moderate edema noted
Neuro: AAOX3, followed commands. Non focal.
Psych : calm
Anticipated Discharge: 24 - 48 hours
Subjective/Interval History
-
Date of Service: July 26, 2025
Patient complains of diarrhea. She denies abdominal pain. No chest pain, no shortness of breath. No fever, no vomiting.
Objective Data
-
Labs:
Laboratory Results
07/26/25
05:02
WBC 11.8 H
Hgb 9.2 L
Hct 28.1 L
Plt Count 271
Sodium 139
Potassium 3.6
Chloride 107
Carbon Dioxide 32 H
BUN 11
Creatinine 0.4 L
Glucose 111 H
Calcium 8.2 L
Total Bilirubin 0.3
AST 18
ALT 14
Alkaline Phosphatase 47
Vital Signs:
Vital Signs
Temp Pulse Resp BP Pulse Ox
98 F 68 16 143/67 95
07/26/25 07:52 07/26/25 06:00 07/26/25 06:00 07/26/25 06:00 07/25/25 20:00
I&O
07/25/25 07/26/25 07/27/25
06:59 06:59 06:59
Intake Total 3924 / 3924 1253 / 1253
Output Total 800 / 800 2550 / 2550
Balance 3124 / 3124 -1297 / -1297
[2025-07-26] MEDS: ELIQUIS 5 MG PO ×2 (09:49→20:05)
[2025-07-26] MEDS: VISBIOME 1 CAP PO (09:49)
[2025-07-26] MEDS: CRESTOR 20 MG PO (09:50)
[2025-07-26] MEDS: TOPROL XL 25 MG PO ×2 (09:50→20:05)
[2025-07-26] MEDS: VITAMIN B1 100 MG PO (09:50)
[2025-07-26] MEDS: PROTONIX 40 MG PO (09:50)
[2025-07-26] MEDS: PLAVIX 75 MG PO (09:50)
[2025-07-26] MEDS: NOVOLOG FLEXPEN-LOW RESISTANCE SC ×2 (10:37→12:58)
--- NOTE | 2025-07-26 10:58 | W.PN.GS2 ---
Addendum entered and electronically signed by Alcon Pierce MD 07/26/25 17:49:
I saw and examined the patient independently.
The resident's documentation was reviewed and I agree with the note, assessment and plan except where noted below.
Comment: This is a 69-year-old female who presented with acute mesenteric ischemia due to SMA stenosis status post of stenting and diagnostic laparoscopy. Exam reassuring, nondistended nontender.
Overall her diet continues to recover, her diarrhea is expected, thankfully no bleeding.
C. difficile positive but toxin negative. On p.o. Vanco
Would continue with a low residue diet.
Okay to use Imodium.
General surgery will continue to follow.
Original Note:
Today's Communication / Plan
-
Frequent diarrhea, may benefit from stool studies.
Assessment / Plan
-
Patient is a 69 yo F p/w acute mesenteric ischemia
POD #10 status post diagnostic laparoscopy with bowel edema, but no advanced/irreversible ischemia
POD #10 status post angiogram, angioplasty and SMA stent placement
Afebrile, BP periodically increased. Currently on Troplol XI 25mg BID, Lopressor 5mg IV q4PRN
WBC 8.6--> 11.8, Hgb 8.4--> 9.2
Eliquis 5mg BID
Plan:
---non-bloody diarrhea, T4 (07/23/2025)- 0.89 seems stable. Currently on Imodium PO q6PRN. Patient may benefit from repeat stool studies.
-- on PO Vancomycin. Zosyn discontinued per ID.
-- on anticoagulation and bb
-- Trend labs including WBC and Hb
-- Medical management as per primary
Subjective Data
-
Date of Service: July 26, 2025
69 year old, female presenting with acute mesenteric ischemia. She is POD# 10 status post diagnostic laparoscopy with bowel edema, but no advanced/irreversible ischemia and POD #10 status post angiogram, angioplasty and SMA stent placement. The
patient denies any abdominal pain but continues to have non-bloody diarrhea twice a day, for approximately 1 week. Reports that Imodium seem to not be working, but amendable to continuing. She denies nausea, vomiting, and loss of appetite.
Objective Data
-
Intake and Output
07/25/25 07/26/25 07/27/25
06:59 06:59 06:59
Intake Total 3924 / 3924 1253 / 1253
Output Total 800 / 800 2550 / 2550
Balance 3124 / 3124 -1297 / -1297
Intake:
Oral fluids 2636 / 2636 960 / 960
IV fluids (Total)
heparin gtt
IV piggybacks 100 / 100
TPN/PPN 1166 / 1166 293 / 293
Output:
Liquid stool amount 600 / 600
Rectum 600 / 600
Urine, Voided 800 / 800 1950 / 1950
Other:
How many times incontinent 1 1
MODERATE amount urine
How many times incontinent 2
SATURATED amount urine
Number of approximated LARGE 1 1
amounts of urine
Number of unmeasured liquid
stools
Rectum 2
Vital Signs
Temp Pulse Resp BP Pulse Ox
98 F 67 13 152/65 95
07/26/25 07:52 07/26/25 09:00 07/26/25 09:00 07/26/25 09:00 07/25/25 20:00
Lab Results
07/26/25 05:02
07/26/25 05:02
Calcium 8.2 mg/dl (8.4-10.2) L 07/26/25 05:02
Phosphorus 4.1 mg/dl (2.5-4.5) 07/26/25 05:02
Magnesium 1.8 mg/dl (1.6-2.3) 07/26/25 05:02
Total Bilirubin 0.3 mg/dl (0.2-1.3) 07/26/25 05:02
Direct Bilirubin 0.7 mg/dl (0.0-0.4) H 07/16/25 15:10
AST 18 U/L (14-36) 07/26/25 05:02
ALT 14 U/L (0-35) 07/26/25 05:02
Alkaline Phosphatase 47 U/L (38-126) 07/26/25 05:02
Total Protein 4.8 g/dl (6.3-8.2) L 07/26/25 05:02
Albumin 2.5 g/dl (3.5-5.0) L 07/26/25 05:02
Physical Exam
-
General: Not in acute distress
Abdomen:soft, non-tender abdomen, well healing incisions
Neuro: AOx3
Patient has a tidwell catheter: No
Patient has a central line: Yes
--- NOTE | 2025-07-26 11:17 | W.PN.ID1 ---
Date of Service
Date of Service: July 26, 2025
Today's Communication
Continue with enteral vancomycin. Monitor white count.
Assessment / Plan
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
- s/p intravascular lithotripsy to SMA calcified stenosis/occlusion (07/16/2025)
A-fib with RVR.
GI bleed
Leukocytosis
C. difficile antigen (+) / toxin (-)
Diarrhea
Aortic Stenosis
Hypertension
HFpEF
Paroxysmal Atrial Fibrillation
DM-II
Panhypopituitarism (Rathke's Cleft Cyst)
Hypothyroidism
Adrenal Insufficiency
Recurrent UTIs
Diverticular Disease
Recommendations:
Zosyn completed yesterday.
Continue enteral vancomycin.
Continue to monitor white count and temperature curve. Mild leukocytosis noted today, although patient overall feels well.
Continue with supportive measures.
����������������������������������������������������������
Chief Complaint
-: Leukocytosis, Clinical Sepsis and C-diff (colonization)
Subjective / Review of Systems
Review of Systems: No Fever and No Chills
Vital Signs / Physical Exam
Vital Signs
Vital Signs
Temp Pulse Resp BP Pulse Ox
98 F 67 13 152/65 95
07/26/25 07:52 07/26/25 09:00 07/26/25 09:00 07/26/25 09:00 07/25/25 20:00
Physical Exam
Constitutional: No Acute Distress and Comfortable
Cardiovascular: Regular Rate and S1/S2; Negative S3/S4
Pulmonary: Clear and Symmetric
Gastrointestinal: Soft, Non Tender, Non Distended, Normal Bowel Sounds, No Rebound and No Guarding
Extremities: Negative Edema or Cyanosis
Skin: Warm and Dry; Negative Rash or Jaundice
Neurological: Awake
Psychological: Calm
Lines: PICC (RUE; exit site without erythema)
Objective Data
Lab Data
Lab Results
07/26/25 05:02
07/26/25 05:02
PT Cancelled 07/21/25 14:11
INR Cancelled 07/21/25 14:11
APTT Cancelled 07/24/25 07:40
Estimated Creat Clear 89 ml/min 07/26/25 05:02
Lactic Acid 0.8 mmol/L (0.7-2.0) 07/22/25 08:29
Total Bilirubin 0.3 mg/dl (0.2-1.3) 07/26/25 05:02
AST 18 U/L (14-36) 07/26/25 05:02
ALT 14 U/L (0-35) 07/26/25 05:02
Alkaline Phosphatase 47 U/L (38-126) 07/26/25 05:02
Most recent labs reviewed.
Micro Results:
07/12/25 17:06 Blood Culture - Final
Blood/Venous No Growth - Final Report
07/11/25 19:37 Blood Culture - Final
Blood/Venous No Growth - Final Report
07/11/25 19:37 Blood Culture - Final
Blood/Venous No Growth - Final Report
07/12/25 11:37 Salmonella/Shigella Culture - Final
Feces/Stool No Salmonella, Shigella, Aeromonas or Plesiomonas species
isolated.
Campylobacter Culture - Final
No Campylobacter species isolated.
- Final
NO YERSINIA SPECIES ISOLATED
Shiga Toxin Test - Final
No E. coli Shiga Toxin 1 or 2 detected.
Stool Leukocytes - Final
07/12/25 11:37 Cryptosporidium/Giardia - Final
Feces/Stool Negative for Cryptosporidium and/or Giardia Lamblia
antigens.
C. difficile GDH Antigen & Toxins - Final
C. difficile antigen positive, toxin negative.
Clostridium difficile present, but toxin not detected.
Patient may be a carrier, colonized with nontoxinogenic
strain or the level of toxin in sample is below detection
limits. This information should be used in conjunction with
the patient's clinical history.
- Final
Negative for Norovirus GI and GII.
Imaging:
07/16/2025 CT abdomen/pelvis angio: severe acute small bowel ischemia with pneumatosis is noted. Moderate mesenteric edema, and small volume ascites noted. There is complete occlusion of the superior mesenteric artery. Severe calcific
atherosclerotic plaque in the abdominal aorta and iliac arteries. Moderate diverticulosis in the descending colon. Please see full dictation for additional detail.
07/11/2025 CT abdomen/pelvis without contrast: evaluation is limited without intravenous or oral contrast. No gross focal intrinsic abnormality of the unopacified liver, spleen, pancreas, kidneys or adrenal glands. No significant perinephric
stranding. Small gallstones are seen within a borderline prominent gallbladder. No biliary tract dilatation. Evaluation of the intestinal tract is markedly limited, but no intestinal obstruction or free air is noted. Please see full dictation
for additional detail.
[2025-07-26 11:47] LABS: Glucose - Point of Care 141 mg/dl (70-99)
[2025-07-26] MEDS: KCL 40 MEQ PO (12:58)
[2025-07-26] MEDS: LASIX 40 MG IV (13:03)
[2025-07-26] MEDS: IMODIUM 2 MG PO (15:07)
--- NOTE | 2025-07-26 16:00 | PTCARENOTE ---
Patient continues with loose stools, INC at times due to urgency. Patient out of bed to chair and worked with PT/OT ambulated in hallway assist x1 with rolling walker. Appetite good today. Denies any abdominal pain or discomfort. VS stable. SR
on monitor.
[2025-07-26 17:04] LABS: Glucose - Point of Care 244 mg/dl (70-99)
[2025-07-26] MEDS: NOVOLOG FLEXPEN-LOW RESISTANCE 2 UNITS SC (17:18)
[2025-07-26] MEDS: LOTRIMIN 1% CREAM TOPICAL (17:18)
[2025-07-26] MEDS: LOTRIMIN 1% CREAM 1 APPLIC TOPICAL (20:06)
[2025-07-26 22:19] LABS: Glucose - Point of Care 206 mg/dl (70-99)
[2025-07-27] VITALS (14 sets, daily range): BP systolic 109–154; BP diastolic 48–77; BMI 31.4; BMI 31.3
--- NOTE | 2025-07-27 00:14 | PTCARENOTE ---
Patient very tired this evening, requesting to rest. Pt on room air SpO2 95%. NSR on the monitor. Pt ambulating to the bedside commode with standby assistance of 1. Pt had two small amount of loose stool. Pt denies any pain. Calazime and Lotrimin
cream applied generously to buttock. Pt able to make needs known, call chew within reach.
[2025-07-27] MEDS: FIRVANQ 125 MG PO ×5 (00:40→23:07)
[2025-07-27] MEDS: SYNTHROID 75 MCG PO (05:20)
[2025-07-27 05:51] LABS: Hematocrit 25.9 % (37.0-47.0); Hemoglobin 8.5 g/dL (12.0-16.0); Mean Corp Hgb Conc. 32.8 g/dL (33.0-37.0); Mean Corpuscular Volume 93.2 fL (81.0-99.0); Platelet Count 289 10^3/uL (130-400); Red Cell Dist. Width 19.3 % (11.5-14.5)
[2025-07-27 06:12] LABS: Blood Urea Nitrogen 9 mg/dl (7-17); Calcium 7.8 mg/dl (8.4-10.2); Carbon Dioxide 29 mmol/L (22-30); Chloride 104 mmol/L (98-107); Estimated Creatinine Clearance 90 ml/min; Glucose 106 mg/dl (70-99); Potassium 3.7 mmol/L (3.5-5.1); Sodium 135 mmol/L (135-145); eGFR > 60.00
[2025-07-27 07:47] LABS: Glucose - Point of Care 91 mg/dl (70-99)
--- NOTE | 2025-07-27 09:07 | W.PN.HOSP.TC ---
Today's Communication/Plan
-
IV Lasix
Compression therapy
Stable for telemetry
Assessment / Plan
Assessment / Plan
HPI: 69y F with PMH significant for s/p BioAVR, post-op CVA and subsequent hospitalization for CHF who presents to ED complaining of N/V/D since last PM.
Assessment/plan:
#Sepsis POA, resolved.
- Lactic acidosis resolved.
- Stool studies positive for C. difficile antigen, negative for toxin
- Appreciate ID input, Zosyn completed on 07/25, continue oral vancomycin
#Severe acute small bowel ischemia secondary to complete occlusion of the SMA artery with severe underlying PAD
- Appreciate vascular surgery input, s/p emergent intravascular lithotripsy to SMA + balloon angioplasty and stenting of proximal SMA 07/16
- Tolerating carb controlled diet, status post TPN
- Continue Eliquis and Plavix
# Change in mental status on 07/21, resolved.
After ruling out hemodynamic instability, code stroke was called. Stroke was ruled out by examination and imaging studies
Toxic metabolic encephalopathy secondary to combination of adrenal insufficiency and Dilaudid use
Started on stress dose corticosteroid and she is doing better/much improved, reducing steroid dose, hope to resume oral dose in 48 hours.
PMH: Panhypopituitarism/ Adrenal Insufficiency
#Hemorrhagic shock
- Resolved
#Acute urinary retention
Resolved.
#Episode of SVT
Seen by cardiology, who recommends continuing her beta-keanu, they have signed off
# Worsening anemia, due to sepsis, acute blood loss, and anemia of chronic disease
- Appreciate hematology input, due to sepsis, acute blood loss, mild hemolysis, and anemia of chronic disease
- Status post 4 units packed red blood cells, 2 units of FFP on 07/16
- Monitor hemoglobin, transfuse as needed
#Hypomagnesemia
#Hypokalemia
#Hypophosphatemia
Replete as needed
#Coffee-ground emesis, resolved, tolerating oral intake.
- Started on Protonix 40 mg IV twice daily, change to oral QD.
#Paroxysmal Atrial Fibrillation with rapid ventricular response
Controlled, c/w BB, Eliquis.
Aortic Stenosis s/p BioAVR
Mild acute on Chronic HFpEF
- Stable. No evidence of volume overload on exam.
- Hold Farxiga
- Give 1 dose of Lasix 60 mg IV x 1 for edema
S/p CVA
- CVA POD #1 after AVR. Transferred to [place] for TCAR.
- No new neurologic deficits.
- Continue Plavix
PANTERA
- Likely due to dehydration +/- Bactrim use / med effect
Resolved
Prolonged QTc
Mild
- Continue Tigan IM as needed
Hypothyroidism
- Continue current T4 replacement
DM-II
-Continue sliding scale insulin
Frequent UTIs
DVT Prophylaxis: Eliquis
Code Status: Full
Dispo - PT rec SNF
Updated at bedside 07/27
Total time spent to see the patient on the floor, examine the patient, review data and lab results, discuss treatment plan with patient, nursing staff around 51 minutes.
Physical Exam
General: No acute distress,
HEENT: Normocephalic, Atraumatic, EOMI, MMM
Respiratory: Clear to Auscultation bilaterally
Cardiac: Normal S1/S2, RRR
GI: Soft, not distended, no tenderness,
Incisions clean/dry/intact
Extremities: No Clubbing, Cyanosis
Moderate edema noted
Neuro: AAOX3, followed commands. Non focal.
Psych : calm
Anticipated Discharge: 24 - 48 hours
Subjective/Interval History
-
Date of Service: July 27, 2025
Patient denies abdominal pain, denies nausea, denies vomiting. She is tolerating her solids. Her stools are becoming more formed. No chest pain, no shortness of breath. No fever.
Objective Data
-
Labs:
Laboratory Results
07/27/25
05:18
WBC 10.5
Hgb 8.5 L
Hct 25.9 L
Plt Count 289
Sodium 135
Potassium 3.7
Chloride 104
Carbon Dioxide 29
BUN 9
Creatinine 0.4 L
Glucose 106 H
Calcium 7.8 L
Vital Signs:
Vital Signs
Temp Pulse Resp BP Pulse Ox
97.9 F 63 11 154/68 98
07/27/25 07:39 07/27/25 06:00 07/27/25 06:00 07/27/25 06:00 07/27/25 00:04
I&O
07/26/25 07/27/25 07/28/25
06:59 06:59 06:59
Intake Total 1253 / 1253 1200 / 1200
Output Total 2550 / 2550 460 / 460
Balance -1297 / -1297 740 / 740
[2025-07-27] MEDS: VISBIOME 1 CAP PO (09:47)
[2025-07-27] MEDS: CRESTOR 20 MG PO (09:47)
[2025-07-27] MEDS: TOPROL XL 25 MG PO ×2 (09:47→19:46)
[2025-07-27] MEDS: ELIQUIS 5 MG PO ×2 (09:47→19:46)
[2025-07-27] MEDS: LOTRIMIN 1% CREAM 1 APPLIC TOPICAL ×2 (09:48→19:47)
[2025-07-27] MEDS: SOLU-CORTEF 12.5 MG IV ×2 (09:48→19:47)
[2025-07-27] MEDS: PROTONIX 40 MG PO (09:48)
[2025-07-27] MEDS: PLAVIX 75 MG PO (09:48)
[2025-07-27] MEDS: NOVOLOG FLEXPEN-LOW RESISTANCE SC (09:49)
--- NOTE | 2025-07-27 10:00 | W.PN.ID1 ---
Date of Service
Date of Service: July 27, 2025
Today's Communication
Continue with enteral vancomycin. Monitor white count and temperature curve.
Assessment / Plan
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
- s/p intravascular lithotripsy to SMA calcified stenosis/occlusion (07/16/2025)
A-fib with RVR.
GI bleed
Leukocytosis
C. difficile antigen (+) / toxin (-)
Diarrhea
Aortic Stenosis
Hypertension
HFpEF
Paroxysmal Atrial Fibrillation
DM-II
Panhypopituitarism (Rathke's Cleft Cyst)
Hypothyroidism
Adrenal Insufficiency
Recurrent UTIs
Diverticular Disease
Recommendations:
Zosyn completed yesterday.
Continue enteral vancomycin.
Continue to monitor white count and temperature curve.
Continue with supportive measures.
����������������������������������������������������������
Chief Complaint
-: Leukocytosis, Clinical Sepsis and C-diff (colonization)
Subjective / Review of Systems
Review of Systems: No Fever, No Chills, No Abdominal Pain and Diarrhea
Vital Signs / Physical Exam
Vital Signs
Vital Signs
Temp Pulse Resp BP Pulse Ox
97.9 F 63 11 154/68 98
07/27/25 07:39 07/27/25 06:00 07/27/25 06:00 07/27/25 06:00 07/27/25 00:04
Physical Exam
Constitutional: No Acute Distress and Comfortable
Cardiovascular: Regular Rate and S1/S2; Negative S3/S4
Pulmonary: Clear and Symmetric
Gastrointestinal: Soft, Non Tender, Non Distended, Normal Bowel Sounds, No Rebound and No Guarding
Extremities: Negative Edema or Cyanosis
Skin: Warm and Dry; Negative Rash or Jaundice
Neurological: Awake
Psychological: Calm
Lines: PICC (RUE; exit site without erythema)
Objective Data
Lab Data
Lab Results
07/27/25 05:18
07/27/25 05:18
PT Cancelled 07/21/25 14:11
INR Cancelled 07/21/25 14:11
APTT Cancelled 07/24/25 07:40
Estimated Creat Clear 90 ml/min 07/27/25 05:18
Lactic Acid 0.8 mmol/L (0.7-2.0) 07/22/25 08:29
Total Bilirubin 0.3 mg/dl (0.2-1.3) 07/26/25 05:02
AST 18 U/L (14-36) 07/26/25 05:02
ALT 14 U/L (0-35) 07/26/25 05:02
Alkaline Phosphatase 47 U/L (38-126) 07/26/25 05:02
Most recent labs reviewed.
Micro Results:
07/12/25 17:06 Blood Culture - Final
Blood/Venous No Growth - Final Report
07/11/25 19:37 Blood Culture - Final
Blood/Venous No Growth - Final Report
07/11/25 19:37 Blood Culture - Final
Blood/Venous No Growth - Final Report
07/12/25 11:37 Salmonella/Shigella Culture - Final
Feces/Stool No Salmonella, Shigella, Aeromonas or Plesiomonas species
isolated.
Campylobacter Culture - Final
No Campylobacter species isolated.
- Final
NO YERSINIA SPECIES ISOLATED
Shiga Toxin Test - Final
No E. coli Shiga Toxin 1 or 2 detected.
Stool Leukocytes - Final
07/12/25 11:37 Cryptosporidium/Giardia - Final
Feces/Stool Negative for Cryptosporidium and/or Giardia Lamblia
antigens.
C. difficile GDH Antigen & Toxins - Final
C. difficile antigen positive, toxin negative.
Clostridium difficile present, but toxin not detected.
Patient may be a carrier, colonized with nontoxinogenic
strain or the level of toxin in sample is below detection
limits. This information should be used in conjunction with
the patient's clinical history.
- Final
Negative for Norovirus GI and GII.
Imaging:
07/16/2025 CT abdomen/pelvis angio: severe acute small bowel ischemia with pneumatosis is noted. Moderate mesenteric edema, and small volume ascites noted. There is complete occlusion of the superior mesenteric artery. Severe calcific
atherosclerotic plaque in the abdominal aorta and iliac arteries. Moderate diverticulosis in the descending colon. Please see full dictation for additional detail.
07/11/2025 CT abdomen/pelvis without contrast: evaluation is limited without intravenous or oral contrast. No gross focal intrinsic abnormality of the unopacified liver, spleen, pancreas, kidneys or adrenal glands. No significant perinephric
stranding. Small gallstones are seen within a borderline prominent gallbladder. No biliary tract dilatation. Evaluation of the intestinal tract is markedly limited, but no intestinal obstruction or free air is noted. Please see full dictation
for additional detail.
CT Scan: Image Reviewed and Report Reviewed
--- NOTE | 2025-07-27 10:50 | W.PN.GS2 ---
Today's Communication / Plan
-
-- CC diet
-- Medical management as per primary
-- Please call with questions or concerns
Assessment / Plan
-
Patient is a 69 yo F p/w acute mesenteric ischemia
POD #11 status post diagnostic laparoscopy with bowel edema, but no advanced/irreversible ischemia
POD #11 status post angiogram, angioplasty and SMA stent placement
Afebrile, BP periodically increased. Currently on Troplol XI 25mg BID, Lopressor 5mg IV q4PRN
WBC normal
Eliquis 5mg BID
Clinically improved. Advance to a carb controlled diet. We discussed that looser stools is not unexpected or concerning given the degree of bowel ischemia, this will improve with time as her mucosa is recovered and regenerated; this may take weeks
to months. Discussed dietary modifications to improve stool habits such as adding fiber as opposed to antidiarrheal medications. Advance to a carb controlled diet, no need for a low residue diet. All questions answered.
Plan:
-- CC diet
-- Abx: PO Vancomycin. Zosyn discontinued per ID.
-- DVT: Eliquis, and Plavix with CV hx and stent
-- Medical management as per primary
-- Please call with questions or concerns
Subjective Data
-
Date of Service: July 27, 2025
No concerns or complaints. Denies any abdominal pain or discomfort. No nausea or vomiting. Better control of stools, improvement with bananas and fiber. Continues to pass flatus. Afebrile.
Objective Data
-
Intake and Output
07/26/25 07/27/25 07/28/25
06:59 06:59 06:59
Intake Total 1253 / 1253 1200 / 1200
Output Total 2550 / 2550 460 / 460
Balance -1297 / -1297 740 / 740
Intake:
Oral fluids 960 / 960 1200 / 1200
TPN/PPN 293 / 293
Output:
Liquid stool amount 600 / 600
Rectum 600 / 600
Urine, Voided 1950 / 1950 460 / 460
Other:
How many times incontinent 2
SMALL amount urine
How many times incontinent 1 2
MODERATE amount urine
Number of approximated SMALL 1
amounts of urine
Number of approximated MODERATE 1
amounts of urine
Number of approximated LARGE 1
amounts of urine
Number of unmeasured liquid
stools
Rectum 1
Vital Signs
Temp Pulse Resp BP Pulse Ox
97.9 F 63 11 154/68 98
07/27/25 07:39 07/27/25 06:00 07/27/25 06:00 07/27/25 06:00 07/27/25 00:04
Lab Results
07/27/25 05:18
07/27/25 05:18
Calcium 7.8 mg/dl (8.4-10.2) L 07/27/25 05:18
Phosphorus 4.1 mg/dl (2.5-4.5) 07/26/25 05:02
Magnesium 1.8 mg/dl (1.6-2.3) 07/26/25 05:02
Total Bilirubin 0.3 mg/dl (0.2-1.3) 07/26/25 05:02
Direct Bilirubin 0.7 mg/dl (0.0-0.4) H 07/16/25 15:10
AST 18 U/L (14-36) 07/26/25 05:02
ALT 14 U/L (0-35) 07/26/25 05:02
Alkaline Phosphatase 47 U/L (38-126) 07/26/25 05:02
Total Protein 4.8 g/dl (6.3-8.2) L 07/26/25 05:02
Albumin 2.5 g/dl (3.5-5.0) L 07/26/25 05:02
Physical Exam
-
Gen: NAD
Abd: soft, NT/ND, non-peritoneal, incisions c/d/i - no erythema, ecchymosis or drainage
Patient has a tidwell catheter: No
Patient has a central line: No
[2025-07-27 12:07] LABS: Glucose - Point of Care 168 mg/dl (70-99)
[2025-07-27] MEDS: NOVOLOG FLEXPEN-LOW RESISTANCE 1 UNITS SC ×2 (12:37→18:36)
[2025-07-27] MEDS: KCL 40 MEQ PO (13:18)
[2025-07-27] MEDS: LASIX 60 MG IV (13:19)
--- NOTE | 2025-07-27 16:08 | CM ---
Following up on Patient. Medical Attending stated that patient is medically ready.
HOIWE Oconnell reviewed the list of facilities and met the patient and her . Both really wanted [facility], but had to share that [facility] does not accept her insurance. Patient was disappointed. The other 2 facilities also that they wanted do
not accept her insurance.
The needed time to review the list then he physically left to visit a few facilities then he call HOWIE Oconnell and chose [facility]. HOWIE Oconnell confirmed a bed is there tomorrow pending Auth.
HOWIE Oconnell informed the and Medical Team that there is a bed tomorrow so hopefully discharge pending approval from the insurance. HOWIE Oconnell submitted for Auth.
PLAN: SNF to [facility].
[2025-07-27 17:19] LABS: Glucose - Point of Care 153 mg/dl (70-99)
--- NOTE | 2025-07-27 21:19 | PTCARENOTE ---
Patient transported to via wheelchair. Report called to receiving RN Patel. All belongings collected and sent with the patient.
[2025-07-27 22:47] LABS: Glucose - Point of Care 235 mg/dl (70-99)
[2025-07-28 03:31] VITALS: BP 142/60
[2025-07-28] MEDS: SYNTHROID 75 MCG PO (04:25)
[2025-07-28] MEDS: FIRVANQ 125 MG PO ×4 (04:25→23:08)
[2025-07-28 04:31] LABS: Hematocrit 26.8 % (37.0-47.0); Hemoglobin 8.9 g/dL (12.0-16.0); Mean Corp Hgb Conc. 33.2 g/dL (33.0-37.0); Mean Corpuscular Volume 94.7 fL (81.0-99.0); Platelet Count 314 10^3/uL (130-400); Red Cell Dist. Width 19.8 % (11.5-14.5)
[2025-07-28 05:22] LABS: Blood Urea Nitrogen 7 mg/dl (7-17); Calcium 8.1 mg/dl (8.4-10.2); Carbon Dioxide 27 mmol/L (22-30); Chloride 108 mmol/L (98-107); Estimated Creatinine Clearance 89 ml/min; Glucose 116 mg/dl (70-99); Potassium 4.2 mmol/L (3.5-5.1); Sodium 137 mmol/L (135-145); eGFR > 60.00
[2025-07-28 06:00] VITALS: BMI 31.0
[2025-07-28 07:45] VITALS: BP 149/65
[2025-07-28 08:37] LABS: Glucose - Point of Care 72 mg/dl (70-99)
--- NOTE | 2025-07-28 09:00 | CM ---
Addendum entered by Arianna Shetty RN 07/28/25 09:51:
Call placed to [facility] to obtain auth information. Approved 07/28-08/03; 7 days; NRD 08/03; clinicals faxed to [phone]; Auth# [id number]
Addendum entered by Arianna Shetty RN 07/28/25 09:24:
Patient's spouse will provide transportation to [facility].
Original Note:
Reviewed the chart notes and spoke with the patient at the bedside. IMM reviewed. Per [facility], patient approved for [facility] auth # [id number]. Unable to obtain additional information from [facility] at this time. Left voice message for Katiana
rehab director at [facility].
Plan: Discharge to [facility].
Call report to: [phone]
Fax report to: [phone]
[2025-07-28] MEDS: NOVOLOG FLEXPEN-LOW RESISTANCE SC (09:09)
[2025-07-28] MEDS: SOLU-CORTEF 12.5 MG IV (09:26)
[2025-07-28] MEDS: VISBIOME 1 CAP PO (09:27)
[2025-07-28] MEDS: PROTONIX 40 MG PO (09:27)
[2025-07-28] MEDS: PLAVIX 75 MG PO (09:27)
[2025-07-28] MEDS: CRESTOR 20 MG PO (09:27)
[2025-07-28] MEDS: ELIQUIS 5 MG PO ×2 (09:27→20:22)
[2025-07-28] MEDS: TOPROL XL 25 MG PO ×2 (09:27→20:22)
[2025-07-28] MEDS: LOTRIMIN 1% CREAM 1 APPLIC TOPICAL ×2 (09:28→20:28)
--- NOTE | 2025-07-28 10:05 | W.PN.HOSP.TC ---
Today's Communication/Plan
-
IV Lasix
For discharge tomorrow
Assessment / Plan
Assessment / Plan
HPI: 69y F with PMH significant for s/p BioAVR, post-op CVA and subsequent hospitalization for CHF who presents to ED complaining of N/V/D since last PM.
Assessment/plan:
#Sepsis POA, resolved.
- Lactic acidosis resolved.
- Stool studies positive for C. difficile antigen, negative for toxin
- Appreciate ID input, Zosyn completed on 07/25, continue oral vancomycin
#Severe acute small bowel ischemia secondary to complete occlusion of the SMA artery with severe underlying PAD
- Appreciate vascular surgery input, s/p emergent intravascular lithotripsy to SMA + balloon angioplasty and stenting of proximal SMA 07/16
- Tolerating carb controlled diet, status post TPN
- Continue Eliquis and Plavix
#Change in mental status on 07/21, resolved
#Adrenal insufficiency
After ruling out hemodynamic instability, code stroke was called. Stroke was ruled out by examination and imaging studies
Toxic metabolic encephalopathy secondary to combination of adrenal insufficiency and Dilaudid use
Change IV stress dose steroids to oral, her home regimen
PMH: Panhypopituitarism/ Adrenal Insufficiency
#Hemorrhagic shock
- Resolved
#Acute urinary retention
Resolved.
#Episode of SVT
Seen by cardiology, who recommends continuing her beta-keanu, they have signed off
# Worsening anemia, due to sepsis, acute blood loss, and anemia of chronic disease
- Appreciate hematology input, due to sepsis, acute blood loss, mild hemolysis, and anemia of chronic disease
- Status post 4 units packed red blood cells, 2 units of FFP on 07/16
- Monitor hemoglobin, transfuse as needed
#Hypomagnesemia
#Hypokalemia
#Hypophosphatemia
Replete as needed
#Coffee-ground emesis, resolved, tolerating oral intake.
- Started on Protonix 40 mg IV twice daily, change to oral QD.
#Paroxysmal Atrial Fibrillation with rapid ventricular response
Controlled, c/w BB, Eliquis.
Aortic Stenosis s/p BioAVR
Mild acute on Chronic HFpEF
- Hold Farxiga
- Continue Lasix 80 mg IV twice daily
S/p CVA
- CVA POD #1 after AVR. Transferred to [facility] for TCAR.
- No new neurologic deficits.
- Continue Plavix
PANTERA
- Likely due to dehydration +/- Bactrim use / med effect
Resolved
Prolonged QTc
Mild
- Continue Tigan IM as needed
Hypothyroidism
- Continue current T4 replacement
DM-II
-Continue sliding scale insulin
Frequent UTIs
DVT Prophylaxis: Eliquis
Code Status: Full
Dispo - PT rec SNF
Updated at bedside 07/28
Total time spent to see the patient on the floor, examine the patient, review data and lab results, discuss treatment plan with patient, nursing staff around 50 minutes.
Physical Exam
General: No acute distress,
HEENT: Normocephalic, Atraumatic, EOMI, MMM
Respiratory: Clear to Auscultation bilaterally
Cardiac: Normal S1/S2, RRR
GI: Soft, not distended, no tenderness,
Incisions clean/dry/intact
Extremities: No Clubbing, Cyanosis
Moderate edema noted
Neuro: AAOX3, followed commands. Non focal.
Psych : calm
Anticipated Discharge: Within 24 hours
Subjective/Interval History
-
Date of Service: July 28, 2025
Patient is tolerating her solids. Denies nausea, denies vomiting. No abdominal pain. Her stools are becoming more formed. No chest pain, no shortness of breath. No fever.
Objective Data
-
Labs:
Laboratory Results
07/28/25
04:07
WBC 9.2
Hgb 8.9 L
Hct 26.8 L
Plt Count 314
Sodium 137
Potassium 4.2
Chloride 108 H
Carbon Dioxide 27
BUN 7
Creatinine 0.4 L
Glucose 116 H
Calcium 8.1 L
Vital Signs:
Vital Signs
Temp Pulse Resp BP Pulse Ox
98.1 F 68 18 149/65 100
07/28/25 07:45 07/28/25 09:27 07/28/25 07:45 07/28/25 09:27 07/28/25 07:45
I&O
07/27/25 07/28/25 07/29/25
06:59 06:59 06:59
Intake Total 1200 / 1200
Output Total 460 / 460 720 / 720
Balance 740 / 740 -720 / -720
[2025-07-28] MEDS: LASIX 80 MG IV ×2 (10:43→16:09)
[2025-07-28] MEDS: KCL 40 MEQ PO ×2 (10:44→17:10)
--- NOTE | 2025-07-28 11:43 | W.PN.ID1 ---
Date of Service
Date of Service: July 28, 2025
Today's Communication
Continue vanco.
Assessment / Plan
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
- s/p intravascular lithotripsy to SMA calcified stenosis/occlusion (07/16/2025)
A-fib with RVR.
GI bleed
Leukocytosis
C. difficile antigen (+) / toxin (-)
Diarrhea
Aortic Stenosis
Hypertension
HFpEF
Paroxysmal Atrial Fibrillation
DM-II
Panhypopituitarism (Rathke's Cleft Cyst)
Hypothyroidism
Adrenal Insufficiency
Recurrent UTIs
Diverticular Disease
Recommendations:
Course of Zosyn completed 07/26.
Continue enteral vancomycin for an additional 5-7 days.
Continue to monitor white count and temperature curve.
Continue with supportive measures.
����������������������������������������������������������
Chief Complaint
-: Leukocytosis, Clinical Sepsis and C-diff (colonization)
Subjective / Review of Systems
Patient seen and examined. Reports loose stool although overall improved and firming up.
Vital Signs / Physical Exam
Vital Signs
Vital Signs
Temp Pulse Resp BP Pulse Ox
98.1 F 68 18 149/65 100
07/28/25 07:45 07/28/25 10:43 07/28/25 07:45 07/28/25 10:43 07/28/25 07:45
Physical Exam
Constitutional: No Acute Distress and Comfortable
Cardiovascular: Regular Rate and S1/S2; Negative S3/S4
Pulmonary: Clear and Symmetric
Gastrointestinal: Soft, Non Tender, Non Distended, Normal Bowel Sounds, No Rebound and No Guarding
Extremities: Negative Edema or Cyanosis
Skin: Warm and Dry; Negative Rash or Jaundice
Neurological: Awake
Psychological: Calm
Lines: PICC (RUE; exit site without erythema)
Objective Data
Lab Data
Lab Results
07/28/25 04:07
07/28/25 04:07
PT Cancelled 07/21/25 14:11
INR Cancelled 07/21/25 14:11
APTT Cancelled 07/24/25 07:40
Estimated Creat Clear 89 ml/min 07/28/25 04:07
Lactic Acid 0.8 mmol/L (0.7-2.0) 07/22/25 08:29
Total Bilirubin 0.3 mg/dl (0.2-1.3) 07/26/25 05:02
AST 18 U/L (14-36) 07/26/25 05:02
ALT 14 U/L (0-35) 07/26/25 05:02
Alkaline Phosphatase 47 U/L (38-126) 07/26/25 05:02
Most recent labs reviewed.
Micro Results:
07/12/25 17:06 Blood Culture - Final
Blood/Venous No Growth - Final Report
07/11/25 19:37 Blood Culture - Final
Blood/Venous No Growth - Final Report
07/11/25 19:37 Blood Culture - Final
Blood/Venous No Growth - Final Report
07/12/25 11:37 Salmonella/Shigella Culture - Final
Feces/Stool No Salmonella, Shigella, Aeromonas or Plesiomonas species
isolated.
Campylobacter Culture - Final
No Campylobacter species isolated.
- Final
NO YERSINIA SPECIES ISOLATED
Shiga Toxin Test - Final
No E. coli Shiga Toxin 1 or 2 detected.
Stool Leukocytes - Final
07/12/25 11:37 Cryptosporidium/Giardia - Final
Feces/Stool Negative for Cryptosporidium and/or Giardia Lamblia
antigens.
C. difficile GDH Antigen & Toxins - Final
C. difficile antigen positive, toxin negative.
Clostridium difficile present, but toxin not detected.
Patient may be a carrier, colonized with nontoxinogenic
strain or the level of toxin in sample is below detection
limits. This information should be used in conjunction with
the patient's clinical history.
- Final
Negative for Norovirus GI and GII.
Imaging:
07/16/2025 CT abdomen/pelvis angio: severe acute small bowel ischemia with pneumatosis is noted. Moderate mesenteric edema, and small volume ascites noted. There is complete occlusion of the superior mesenteric artery. Severe calcific
atherosclerotic plaque in the abdominal aorta and iliac arteries. Moderate diverticulosis in the descending colon. Please see full dictation for additional detail.
07/11/2025 CT abdomen/pelvis without contrast: evaluation is limited without intravenous or oral contrast. No gross focal intrinsic abnormality of the unopacified liver, spleen, pancreas, kidneys or adrenal glands. No significant perinephric
stranding. Small gallstones are seen within a borderline prominent gallbladder. No biliary tract dilatation. Evaluation of the intestinal tract is markedly limited, but no intestinal obstruction or free air is noted. Please see full dictation
for additional detail.
[2025-07-28 11:54] VITALS: BP 154/70
[2025-07-28 11:57] LABS: Glucose - Point of Care 180 mg/dl (70-99)
[2025-07-28] MEDS: NOVOLOG FLEXPEN-LOW RESISTANCE 1 UNITS SC ×2 (12:30→16:16)
[2025-07-28 15:55] VITALS: BP 132/68
[2025-07-28 16:15] LABS: Glucose - Point of Care 174 mg/dl (70-99)
[2025-07-28 19:23] VITALS: BP 135/65
[2025-07-28 21:43] LABS: Glucose - Point of Care 148 mg/dl (70-99)
[2025-07-28 23:16] VITALS: BP 121/56
[2025-07-29 03:24] VITALS: BP 122/66
[2025-07-29] MEDS: FIRVANQ 125 MG PO ×3 (05:17→17:22)
[2025-07-29] MEDS: SYNTHROID 75 MCG PO (05:17)
[2025-07-29 05:36] VITALS: BMI 30.3
[2025-07-29 06:47] LABS: Hematocrit 28.9 % (37.0-47.0); Hemoglobin 9.5 g/dL (12.0-16.0); Mean Corp Hgb Conc. 32.9 g/dL (33.0-37.0); Mean Corpuscular Volume 95.4 fL (81.0-99.0); Platelet Count 368 10^3/uL (130-400); Red Cell Dist. Width 20.1 % (11.5-14.5)
[2025-07-29 07:13] LABS: Blood Urea Nitrogen 5 mg/dl (7-17); Calcium 8.3 mg/dl (8.4-10.2); Carbon Dioxide 28 mmol/L (22-30); Chloride 103 mmol/L (98-107); Estimated Creatinine Clearance 88 ml/min; Glucose 82 mg/dl (70-99); Magnesium 1.5 mg/dl (1.6-2.3); Potassium 4.4 mmol/L (3.5-5.1); Sodium 134 mmol/L (135-145); eGFR > 60.00
[2025-07-29 08:09] VITALS: BP 135/74
[2025-07-29 08:23] LABS: Glucose - Point of Care 85 mg/dl (70-99)
[2025-07-29] MEDS: NOVOLOG FLEXPEN-LOW RESISTANCE SC ×2 (08:24→12:28)
--- NOTE | 2025-07-29 08:42 | VATNOTE ---
Right 6Fr. TL PICC checked. All 3 lumens flushed without difficulty. + Blood return from lumens with red and purple colored ends. No blood return from white colored end.
[2025-07-29] MEDS: ELIQUIS 5 MG PO ×2 (08:48→19:26)
[2025-07-29] MEDS: PROTONIX 40 MG PO (08:48)
[2025-07-29] MEDS: PLAVIX 75 MG PO (08:48)
[2025-07-29] MEDS: CRESTOR 20 MG PO (08:49)
[2025-07-29] MEDS: CORTEF 20 MG PO (08:49)
[2025-07-29] MEDS: LASIX 80 MG IV ×2 (08:49→15:51)
[2025-07-29] MEDS: VISBIOME 1 CAP PO (08:49)
[2025-07-29] MEDS: TOPROL XL 25 MG PO ×2 (08:49→19:27)
--- NOTE | 2025-07-29 08:58 | W.PN.HOSP.TC ---
Today's Communication/Plan
-
see bold
Assessment / Plan
Assessment / Plan
HPI: 69y F with PMH significant for s/p BioAVR, post-op CVA and subsequent hospitalization for CHF who presents to ED complaining of N/V/D since last PM.
Assessment/plan:
#Sepsis POA, resolved.
- Lactic acidosis resolved.
- Stool studies positive for C. difficile antigen, negative for toxin
- Appreciate ID input, Zosyn completed on 07/26, continue oral vancomycin as per ID
#Severe acute small bowel ischemia secondary to complete occlusion of the SMA artery with severe underlying PAD
- Appreciate vascular surgery input, s/p emergent intravascular lithotripsy to SMA + balloon angioplasty and stenting of proximal SMA 07/16
- Was on carb controlled diet status post TPN. Having abd pain today, gen surg ordered repeat CT and/pelvis
- Continue Eliquis and Plavix
#Change in mental status on 07/21, resolved
#Adrenal insufficiency
After ruling out hemodynamic instability, code stroke was called. Stroke was ruled out by examination and imaging studies
Toxic metabolic encephalopathy secondary to combination of adrenal insufficiency and Dilaudid use
Last day of IV stress dose steroids today, resume home oral hydrocortisone
PMH: Panhypopituitarism/ Adrenal Insufficiency
#Hemorrhagic shock
- Resolved
#Acute urinary retention
Resolved.
#Episode of SVT
Seen by cardiology, who recommends continuing her beta-keanu, they have signed off
# Worsening anemia, due to sepsis, acute blood loss, and anemia of chronic disease
- Appreciate hematology input, due to sepsis, acute blood loss, mild hemolysis, and anemia of chronic disease
- Status post 4 units packed red blood cells, 2 units of FFP on 07/16
- Monitor hemoglobin, transfuse as needed
#Hypomagnesemia
#Hypokalemia
#Hypophosphatemia
Replete as needed
#Coffee-ground emesis, resolved, tolerating oral intake.
- Started on Protonix 40 mg IV twice daily, change to oral QD.
#Paroxysmal Atrial Fibrillation with rapid ventricular response
Controlled, c/w BB, Eliquis.
Aortic Stenosis s/p BioAVR
Mild acute on Chronic HFpEF
- Hold Farxiga
- Continue Lasix 80 mg IV twice daily
S/p CVA
- CVA POD #1 after AVR. Transferred to [place] for TCAR.
- No new neurologic deficits.
- Continue Plavix
PANTERA
- Likely due to dehydration +/- Bactrim use / med effect
Resolved
Prolonged QTc
Mild
- Continue Tigan IM as needed
Hypothyroidism
- Continue current T4 replacement
DM-II
-Continue sliding scale insulin
Frequent UTIs
DVT Prophylaxis: Eliquis
Code Status: Full
Dispo - PT rec SNF - [place] [facility]
Updated at bedside 07/29
Total time spent to see the patient on the floor, examine the patient, review data and lab results, discuss treatment plan with patient, nursing staff around 51 minutes.
Physical Exam
General: No acute distress,
HEENT: Normocephalic, Atraumatic, EOMI, MMM
Respiratory: Clear to Auscultation bilaterally
Cardiac: Normal S1/S2, RRR
GI: Soft, not distended, tender at the epigastrium
Incisions clean/dry/intact
Extremities: No Clubbing, Cyanosis
Improving LE edema noted
Neuro: AAOX3, followed commands. Non focal.
Psych : calm
Anticipated Discharge: 24 - 48 hours
Subjective/Interval History
-
Date of Service: July 29, 2025
Having abd pain, started in the middle of the night. Still having pain at present. +loose stools. No N/V. No fever.
Objective Data
-
Labs:
Laboratory Results
07/29/25
06:23
WBC 13.6 H
Hgb 9.5 L
Hct 28.9 L
Plt Count 368
Sodium 134 L
Potassium 4.4
Chloride 103
Carbon Dioxide 28
BUN 5 L
Creatinine 0.5 L
Glucose 82
Calcium 8.3 L
Vital Signs:
Vital Signs
Temp Pulse Resp BP Pulse Ox
98.3 F 80 18 135/74 97
07/29/25 08:09 07/29/25 08:09 07/29/25 08:09 07/29/25 08:09 07/29/25 08:09
I&O
07/28/25 07/29/25 07/30/25
06:59 06:59 06:59
Intake Total 1240 / 1240
Output Total 720 / 720
Balance -720 / -720 1240 / 1240
[2025-07-29] MEDS: LOTRIMIN 1% CREAM 1 APPLIC TOPICAL ×2 (09:02→19:38)
[2025-07-29] MEDS: MAGNESIUM SULFATE 50 IV (09:08)
--- NOTE | 2025-07-29 09:51 | W.PN.ID1 ---
Date of Service
Date of Service: July 29, 2025
Today's Communication
Continue enteral vancomycin. Await abdominal CT.
Assessment / Plan
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
- s/p intravascular lithotripsy to SMA calcified stenosis/occlusion (07/16/2025)
A-fib with RVR.
GI bleed
Leukocytosis
- Increased today.
C. difficile antigen (+) / toxin (-)
Diarrhea
Aortic Stenosis
Hypertension
HFpEF
Paroxysmal Atrial Fibrillation
DM-II
Panhypopituitarism (Rathke's Cleft Cyst)
Hypothyroidism
Adrenal Insufficiency
Recurrent UTIs
Diverticular Disease
Recommendations:
Course of Zosyn completed 07/26.
Continue enteral vancomycin for an additional 5-7 days.
Increased abdominal discomfort and leukocytosis is concerning.
Case discussed with Primary service. Patient for repeat CT scan today.
Continue to monitor white count and temperature curve.
Continue with supportive measures.
����������������������������������������������������������
Chief Complaint
-: Leukocytosis, Clinical Sepsis and C-diff (colonization)
Subjective / Review of Systems
Patient seen and examined. Reports not feeling quite as well today as yesterday. Increased abdominal discomfort (04/13). No diarrhea. No dysuria.
Vital Signs / Physical Exam
Vital Signs
Vital Signs
Temp Pulse Resp BP Pulse Ox
98.3 F 80 18 135/74 97
07/29/25 08:09 07/29/25 08:49 07/29/25 08:09 07/29/25 08:49 07/29/25 08:09
Physical Exam
Constitutional: No Acute Distress, Non-toxic and Other (Appears less well than yesterday, although no acute distress)
Eyes: Sclera Anicteric
Cardiovascular: S1/S2; Negative S3/S4
Pulmonary: Clear and Non Labored
Gastrointestinal: Soft, Tender (Mild; diffuse), Distended (Minimal), Decreased Bowel Sounds, No Rebound and No Guarding
Extremities: Edema; Negative Cyanosis or Erythema
Neurological: Awake and Alert
Psychological: Calm
Objective Data
Lab Data
Lab Results
07/29/25 06:23
07/29/25 06:23
PT Cancelled 07/21/25 14:11
INR Cancelled 07/21/25 14:11
APTT Cancelled 07/24/25 07:40
Estimated Creat Clear 88 ml/min 07/29/25 06:23
Lactic Acid 0.8 mmol/L (0.7-2.0) 07/22/25 08:29
Total Bilirubin 0.3 mg/dl (0.2-1.3) 07/26/25 05:02
AST 18 U/L (14-36) 07/26/25 05:02
ALT 14 U/L (0-35) 07/26/25 05:02
Alkaline Phosphatase 47 U/L (38-126) 07/26/25 05:02
Most recent labs reviewed.
Micro Results:
07/12/25 17:06 Blood Culture - Final
Blood/Venous No Growth - Final Report
07/11/25 19:37 Blood Culture - Final
Blood/Venous No Growth - Final Report
07/11/25 19:37 Blood Culture - Final
Blood/Venous No Growth - Final Report
07/12/25 11:37 Salmonella/Shigella Culture - Final
Feces/Stool No Salmonella, Shigella, Aeromonas or Plesiomonas species
isolated.
Campylobacter Culture - Final
No Campylobacter species isolated.
- Final
NO YERSINIA SPECIES ISOLATED
Shiga Toxin Test - Final
No E. coli Shiga Toxin 1 or 2 detected.
Stool Leukocytes - Final
09/08/25 11:37 Cryptosporidium/Giardia - Final
Feces/Stool Negative for Cryptosporidium and/or Giardia Lamblia
antigens.
C. difficile GDH Antigen & Toxins - Final
C. difficile antigen positive, toxin negative.
Clostridium difficile present, but toxin not detected.
Patient may be a carrier, colonized with nontoxinogenic
strain or the level of toxin in sample is below detection
limits. This information should be used in conjunction with
the patient's clinical history.
- Final
Negative for Norovirus GI and GII.
Imaging:
07/16/2025 CT abdomen/pelvis angio: severe acute small bowel ischemia with pneumatosis is noted. Moderate mesenteric edema, and small volume ascites noted. There is complete occlusion of the superior mesenteric artery. Severe calcific
atherosclerotic plaque in the abdominal aorta and iliac arteries. Moderate diverticulosis in the descending colon. Please see full dictation for additional detail.
07/11/2025 CT abdomen/pelvis without contrast: evaluation is limited without intravenous or oral contrast. No gross focal intrinsic abnormality of the unopacified liver, spleen, pancreas, kidneys or adrenal glands. No significant perinephric
stranding. Small gallstones are seen within a borderline prominent gallbladder. No biliary tract dilatation. Evaluation of the intestinal tract is markedly limited, but no intestinal obstruction or free air is noted. Please see full dictation
for additional detail.
Care Review
Plan reviewed with: Physician (Hospitalist)
[2025-07-29] MEDS: OMNIPAQUE 50 ML PO (10:18)
--- NOTE | 2025-07-29 10:36 | W.PN.GS2 ---
Addendum entered and electronically signed by Harshal Maynard MD 07/29/25 11:01:
Patient seen and examined in follow-up with surgical SYSTEMS CONSULTANT. at bedside. Discussed with hospitalist.
Rebound and abdominal pain overnight and into this a.m. More right sided. Crampy. Last bowel movement yesterday semiformed/loose but not diarrhea.
Appetite generally remains poor. No nausea or vomiting.
AFVSS
NAD AAO x 3
ABD: Soft, nondistended, tenderness to palpation localizing to the right side and right lower quadrant with some voluntary guarding.
A/P: 69-year-old female POD #13 status post angiogram/SMA stent and diagnostic laparoscopy
Rebound of abdominal pain and now leukocytosis after being on solid food for the last 2 days although somewhat limited intake
Repeat CT abdomen/pelvis imaging with both IV and oral contrast
Backed down to clear liquid diet for comfort
Further surgical recommendations pending CT imaging results, will follow
Original Note:
Today's Communication / Plan
-
Check CT a/p w IV an Po contrast
Assessment / Plan
-
Patient is a 69 yo F p/w acute mesenteric ischemia
POD #13 status post diagnostic laparoscopy with bowel edema, but no advanced/irreversible ischemia
POD #13 status post angiogram, angioplasty and SMA stent placement
WBC trended up to 13.6 from 9.2
Afebrile
h/h stable on Plavix daily/Eliquis 5mg BID
Worsening abdominal pain with cramping, poor PO tolerance
Plan:
-- Check CT a/p with IV and Po contrast
-- CLD pending CT
-- Currently off ABX, trend WBCs
-- Medical management as per primary
Subjective Data
-
Date of Service: July 29, 2025
Pt seen and examined at bedside with Dr. Maynard. Cramping and worsening abdominal discomfort overnight. Last Bm was yesterday, still somewhat loose but beginning to be formed. Poor appetite, has been eating small amounts of solid food. Denies n/v.
Objective Data
-
Intake and Output
07/28/25 07/29/25 07/30/25
06:59 06:59 06:59
Intake Total 1240 / 1240
Output Total 720 / 720
Balance -720 / -720 1240 / 1240
Intake:
Oral fluids 1240 / 1240
Output:
Urine, Voided 720 / 720
Other:
How many times incontinent 10
MODERATE amount urine
How many times incontinent 1
SATURATED amount urine
Number of approximated MODERATE 1 2
amounts of urine
Number of approximated LARGE 2
amounts of urine
Number of unmeasured liquid
stools
Rectum 1 2
Vital Signs
Temp Pulse Resp BP Pulse Ox
98.3 F 80 18 135/74 97
07/29/25 08:09 07/29/25 08:49 07/29/25 08:09 07/29/25 08:49 07/29/25 08:09
Lab Results
07/29/25 06:23
07/29/25 06:23
Calcium 8.3 mg/dl (8.4-10.2) L 07/29/25 06:23
Phosphorus 3.6 mg/dl (2.5-4.5) 07/29/25 06:23
Magnesium 1.5 mg/dl (1.6-2.3) L 07/29/25 06:23
Total Bilirubin 0.3 mg/dl (0.2-1.3) 07/26/25 05:02
Direct Bilirubin 0.7 mg/dl (0.0-0.4) H 07/16/25 15:10
AST 18 U/L (14-36) 07/26/25 05:02
ALT 14 U/L (0-35) 07/26/25 05:02
Alkaline Phosphatase 47 U/L (38-126) 07/26/25 05:02
Total Protein 4.8 g/dl (6.3-8.2) L 07/26/25 05:02
Albumin 2.5 g/dl (3.5-5.0) L 07/26/25 05:02
Physical Exam
-
Gen: NAD
Abd: soft, mild distention, generalized tenderness predominantly on the right, non-peritoneal, incisions c/d/i - mild ecchymosis
Patient has a tidwell catheter: No
Patient has a central line: No
--- NOTE | 2025-07-29 10:50 | WOUNDNOTE ---
WON RN NOTE: Followed up today, patient able to turn self in bed and get oob to commode. Perineum less excoriated, nurse reports no BM since yesterday. Calazime applied after using commode, patient only urinated. Patient states that the cream helps
make it feel better. Patient reports external fecal pouch logistics analytics manager was not comfortable and was removed. Will continue with barrier cream daily and prn soilage. Heels remain intact, foam adhesives in use. Sternal dressing changed, wound almost closed.
Tiny opening remains, depth shallow, scant drainage. Will sign off unless needed.
[2025-07-29 11:56] VITALS: BP 130/70
[2025-07-29 12:21] LABS: Glucose - Point of Care 110 mg/dl (70-99)
--- NOTE | 2025-07-29 14:10 | CM ---
Reviewed the chart notes. Patient experiencing abdominal pain with cramps overnight and into this a.m. Approved 07/28-08/03; 7 days; NRD 08/03; clinicals faxed to [phone]; Auth# [id number] for [facility]. CM continues to be available to
patient/family and is monitoring medical plan for needs at discharge.
Plan: Discharge plans will depend on the patient's progress. Hopefully will be able to discharge to [facility].
[2025-07-29 15:49] VITALS: BP 114/72
[2025-07-29] MEDS: ZOSYN 50 IV ×2 (15:51→21:39)
--- NOTE | 2025-07-29 17:03 | W.PN.SURGUPD ---
Surgical Update
Surgical Update
CT abdomen/pelvis imaging completed. Images personally reviewed as well as radiologist report. There is persistent terminal ileitis but improving and over a shorter segment than previous imaging. No pneumatosis, no free fluid, no portal
venous/mesenteric venous gas.
Patient seen in follow-up. She is feeling a bit better throughout the day while fasting. No bowel movement today.
Reviewed with patient, discussed with hospitalist. Discussed with parts room assistant. Suspect that residual inflammation is continue mucosal healing. Patient has been able to tolerate some po intake with solid foods exacerbating pain/inflammation.
There really is no good elemental diet supplement available for oral intake without tube feeding.
Given tolerance of liquid diet in the past we will try Ensure (chocolate flavored patient requests) as a base of calories starting with 1 can twice daily.
Will subsequently consider resumption of simple dietary foods; -low-fat; low fiber with simple carbohydrates, simple proteins.
Alternative option could be consideration of ileocecectomy but so far there are no strong clinical signs that the residual terminal ileitis would not be reversible with continued supportive care. Patient also clearly wants to avoid any surgery
unless felt to be absolutely necessary.
Will follow
[2025-07-29] MEDS: KCL 40 MEQ PO (17:22)
[2025-07-29 17:23] LABS: Glucose - Point of Care 157 mg/dl (70-99)
[2025-07-29] MEDS: NOVOLOG FLEXPEN-LOW RESISTANCE 1 UNITS SC (17:23)
[2025-07-29] MEDS: TYLENOL ORAL SOLUTION 650 MG PO (19:25)
[2025-07-29 19:56] VITALS: BP 129/75
[2025-07-29 21:38] LABS: Glucose - Point of Care 143 mg/dl (70-99)
[2025-07-29 23:19] VITALS: BP 109/66
[2025-07-30] MEDS: FIRVANQ 125 MG PO ×4 (00:22→18:04)
[2025-07-30] MEDS: TYLENOL ORAL SOLUTION 650 MG PO (00:24)
[2025-07-30 03:33] VITALS: BP 116/62
[2025-07-30] MEDS: ZOSYN 50 IV ×4 (04:08→21:57)
[2025-07-30] MEDS: SYNTHROID 75 MCG PO (06:01)
[2025-07-30 06:09] VITALS: BMI 29.2
[2025-07-30 06:14] LABS: Hematocrit 31.8 % (37.0-47.0); Hemoglobin 10.6 g/dL (12.0-16.0); Mean Corp Hgb Conc. 33.3 g/dL (33.0-37.0); Mean Corpuscular Volume 95.2 fL (81.0-99.0); Platelet Count 431 10^3/uL (130-400); Red Cell Dist. Width 20.3 % (11.5-14.5)
[2025-07-30 06:36] LABS: Blood Urea Nitrogen 9 mg/dl (7-17); Calcium 7.8 mg/dl (8.4-10.2); Carbon Dioxide 26 mmol/L (22-30); Chloride 101 mmol/L (98-107); Estimated Creatinine Clearance 52 ml/min; Glucose 127 mg/dl (70-99); Magnesium 2.0 mg/dl (1.6-2.3); Potassium 4.1 mmol/L (3.5-5.1); Sodium 131 mmol/L (135-145); eGFR > 60.00
[2025-07-30 07:36] VITALS: BP 139/69
[2025-07-30 07:40] LABS: Glucose - Point of Care 99 mg/dl (70-99)
--- NOTE | 2025-07-30 09:04 | W.PN.HOSP.TC ---
Today's Communication/Plan
-
see bold
Assessment / Plan
Assessment / Plan
HPI: 69y F with PMH significant for s/p BioAVR, post-op CVA and subsequent hospitalization for CHF who presents to ED complaining of N/V/D since last PM.
Assessment/plan:
#Sepsis POA, resolved.
- Lactic acidosis resolved.
- Stool studies positive for C. difficile antigen, negative for toxin
- Appreciate ID input, Zosyn completed on 07/26, continue oral vancomycin as per ID
#Severe acute small bowel ischemia secondary to complete occlusion of the SMA artery with severe underlying PAD
- Appreciate vascular surgery input, s/p emergent intravascular lithotripsy to SMA + balloon angioplasty and stenting of proximal SMA 07/16
- Was on carb controlled diet status post TPN, but had abd pain 07/29
- 07/29 CT abd/pel with persistent terminal ileitis but improving and over a shorter segment than previous imaging
- Appreciate general surgery input, recommend full liquid diet with protein supplements twice daily, with eventual transition to simple dietary foods (low fat, low fiber, simple carbs and proteins) but not yet ready
- Continue Eliquis and Plavix
#Change in mental status on 07/21, resolved
#Adrenal insufficiency
#Hyponatremia
After ruling out hemodynamic instability, code stroke was called. Stroke was ruled out by examination and imaging studies
Toxic metabolic encephalopathy secondary to combination of adrenal insufficiency and Dilaudid use
Suspect her previous altered mental status was due to hyponatremia
Sodium dipping today, will change back to IV stress steroids
PMH: Panhypopituitarism/ Adrenal Insufficiency
#Hemorrhagic shock
- Resolved
#Acute urinary retention
Resolved.
#Episode of SVT
Seen by cardiology, who recommends continuing her beta-keanu, they have signed off
# Worsening anemia, due to sepsis, acute blood loss, and anemia of chronic disease
- Appreciate hematology input, due to sepsis, acute blood loss, mild hemolysis, and anemia of chronic disease
- Status post 4 units packed red blood cells, 2 units of FFP on 07/16
- Monitor hemoglobin, transfuse as needed
#Hypomagnesemia
#Hypokalemia
#Hypophosphatemia
Replete as needed
#Coffee-ground emesis, resolved, tolerating oral intake.
- Started on Protonix 40 mg IV twice daily, change to oral QD.
#Paroxysmal Atrial Fibrillation with rapid ventricular response
Controlled, c/w BB, Eliquis.
Aortic Stenosis s/p BioAVR
Mild acute on Chronic HFpEF
- Hold Farxiga
- Resolving on Lasix 80 mg IV twice daily, change to Lasix 80 mg daily tomorrow
S/p CVA
- CVA POD #1 after AVR. Transferred to [facility] for TCAR.
- No new neurologic deficits.
- Continue Plavix
PANTERA
- Likely due to dehydration +/- Bactrim use / med effect
Resolved
Prolonged QTc
Mild
- Continue Tigan IM as needed
Hypothyroidism
- Continue current T4 replacement
DM-II
-Continue sliding scale insulin
Frequent UTIs
DVT Prophylaxis: Eliquis
Code Status: Full
Dispo - PT rec SNF - [facility]
Updated at bedside 07/30
Total time spent to see the patient on the floor, examine the patient, review data and lab results, discuss treatment plan with patient, nursing staff around 50 minutes.
Physical Exam
General: No acute distress,
HEENT: Normocephalic, Atraumatic, EOMI, MMM
Respiratory: Clear to Auscultation bilaterally
Cardiac: Normal S1/S2, RRR
GI: Soft, not distended, tender at the epigastrium
Incisions clean/dry/intact
Extremities: No Clubbing, Cyanosis
Improving LE edema noted
Neuro: AAOX3, followed commands. Non focal.
Psych : calm
Anticipated Discharge: 24 - 48 hours
Subjective/Interval History
-
Date of Service: July 30, 2025
Abdominal pain resolved. Patient tolerating liquids and Ensure. No nausea, no vomiting. No chest pain, no shortness of breath. No fever.
Objective Data
-
Labs:
Laboratory Results
07/30/25
06:00
WBC 13.9 H
Hgb 10.6 L
Hct 31.8 L
Plt Count 431 H
Sodium 131 L
Potassium 4.1
Chloride 101
Carbon Dioxide 26
BUN 9
Creatinine 1.0
Glucose 127 H
Calcium 7.8 L
Vital Signs:
Vital Signs
Temp Pulse Resp BP Pulse Ox
98.4 F 81 16 139/69 98
07/30/25 07:36 07/30/25 07:36 07/30/25 07:36 07/30/25 07:36 07/30/25 07:36
I&O
07/29/25 07/30/25 07/31/25
06:59 06:59 06:59
Intake Total 1240 / 1240 1350 / 1350
Balance 1240 / 1240 1350 / 1350
[2025-07-30] MEDS: NOVOLOG FLEXPEN-LOW RESISTANCE SC (09:06)
[2025-07-30] MEDS: LASIX 80 MG IV (09:07)
[2025-07-30] MEDS: CORTEF PO (09:07)
[2025-07-30] MEDS: PLAVIX 75 MG PO (09:08)
[2025-07-30] MEDS: TOPROL XL 25 MG PO ×2 (09:09→19:41)
[2025-07-30] MEDS: VISBIOME 1 CAP PO (09:09)
[2025-07-30] MEDS: CRESTOR 20 MG PO (09:09)
[2025-07-30] MEDS: PROTONIX 40 MG PO (09:09)
[2025-07-30] MEDS: ELIQUIS 5 MG PO ×2 (09:09→19:41)
[2025-07-30] MEDS: LOTRIMIN 1% CREAM TOPICAL (09:29)
[2025-07-30] MEDS: SOLU-CORTEF 25 MG IV (10:45)
--- NOTE | 2025-07-30 10:53 | W.PN.GS2 ---
Addendum entered and electronically signed by Terrell Castaneda MD 07/30/25 12:45:
I saw and examined the patient.
The OUTPATIENT THERAPIST's note was reviewed and I agree with the note.
Comment: Improved from yesterday, belly soft and mild ttp to right hemiabdomen, denies n/v, plan to stay on full liquid diet for now.
Original Note:
Today's Communication / Plan
-
FLD
Assessment / Plan
-
Patient is a 69 yo F p/w acute mesenteric ischemia
POD #14 status post diagnostic laparoscopy with bowel edema, but no advanced/irreversible ischemia
POD #14 status post angiogram, angioplasty and SMA stent placement
WBC still mildly elevated
Afebrile
h/h stable on Plavix daily/Eliquis 5mg BID
Worsening abdominal pain with cramping, poor PO tolerance with advancement in diet to solids. Tolerating FLD with improvement today.
CT on 07/29/25 with persistent terminal ileitis but improving and over a shorter segment than previous imaging.
Plan:
-- Continue on FLD with BID protein supplements, eventual transition to simple dietary foods (low fat, low fiber, simple carbs and proteins) but not yet ready
-- Currently off ABX, trend WBCs, Steroids as per primary team
-- Medical management as per primary
Subjective Data
-
Date of Service: July 30, 2025
Pt seen and examined at bedside with Dr. Castaneda. Denies n/v. Less cramping/pain today. Having 'mushy' bm's, less liquid than previous.
Objective Data
-
Intake and Output
07/29/25 07/30/25 07/31/25
06:59 06:59 06:59
Intake Total 1240 / 1240 1350 / 1350
Balance 1240 / 1240 1350 / 1350
Intake:
Oral fluids 1240 / 1240 1200 / 1200
IV piggybacks 150 / 150
Other:
How many times incontinent 1
SMALL amount urine
How many times incontinent 10
MODERATE amount urine
How many times incontinent 1
SATURATED amount urine
Number of approximated MODERATE 2 3
amounts of urine
Number of approximated LARGE 2
amounts of urine
Number of unmeasured liquid
stools
Rectum 2 3
Vital Signs
Temp Pulse Resp BP Pulse Ox
98.4 F 81 16 139/69 98
07/30/25 07:36 07/30/25 09:07 07/30/25 07:36 07/30/25 09:07 07/30/25 07:36
Lab Results
07/30/25 06:00
07/30/25 06:00
Calcium 7.8 mg/dl (8.4-10.2) L 07/30/25 06:00
Phosphorus 3.6 mg/dl (2.5-4.5) 07/29/25 06:23
Magnesium 2.0 mg/dl (1.6-2.3) 07/30/25 06:00
Total Bilirubin 0.3 mg/dl (0.2-1.3) 07/26/25 05:02
Direct Bilirubin 0.7 mg/dl (0.0-0.4) H 07/16/25 15:10
AST 18 U/L (14-36) 07/26/25 05:02
ALT 14 U/L (0-35) 07/26/25 05:02
Alkaline Phosphatase 47 U/L (38-126) 07/26/25 05:02
Total Protein 4.8 g/dl (6.3-8.2) L 07/26/25 05:02
Albumin 2.5 g/dl (3.5-5.0) L 07/26/25 05:02
Physical Exam
-
Gen: NAD
Abd: soft, mild distention, generalized tenderness predominantly on the right, non-peritoneal, incisions c/d/i - mild ecchymosis
Patient has a tidwell catheter: No
Patient has a central line: No
--- NOTE | 2025-07-30 12:52 | W.PN.ID1 ---
Date of Service
Date of Service: July 30, 2025
Today's Communication
Continue po vancomycin and iv Zosyn.
Assessment / Plan
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
- s/p intravascular lithotripsy to SMA calcified stenosis/occlusion (07/16/2025)
A-fib with RVR.
GI bleed
Leukocytosis
- stable
C. difficile antigen (+) / toxin (-)
Diarrhea - improving
Aortic Stenosis
Hypertension
HFpEF
Paroxysmal Atrial Fibrillation
DM-II
Panhypopituitarism (Rathke's Cleft Cyst)
Hypothyroidism
Adrenal Insufficiency
Recurrent UTIs
Diverticular Disease
Recommendations:
Course of Zosyn completed 07/26.
Zosyn resumed 07/29 due to leukocytosis and CT a/p persistent ileitis. Abd pain improved today.
Continue enteral vancomycin for an additional 5-7 days.
Continue to monitor white count.
Continue with supportive measures.
����������������������������������������������������������
Chief Complaint
-: Leukocytosis, Clinical Sepsis and C-diff (colonization)
Subjective / Review of Systems
No abd pain.
Stool is loose.
Vital Signs / Physical Exam
Vital Signs
Vital Signs
Temp Pulse Resp BP Pulse Ox
98.4 F 81 16 139/69 98
07/30/25 07:36 07/30/25 09:07 07/30/25 07:36 07/30/25 09:07 07/30/25 07:36
Physical Exam
Constitutional: No Acute Distress and Non-toxic
Eyes: Sclera Anicteric
Cardiovascular: Regular Rate and S1/S2
Pulmonary: Clear and Non Labored
Gastrointestinal: Soft, Non Tender, Distended (Minimal) and Decreased Bowel Sounds
Extremities: Edema; Negative Cyanosis or Erythema
Neurological: AO x 3
Objective Data
Lab Data
Lab Results
07/30/25 06:00
07/30/25 06:00
PT Cancelled 07/21/25 14:11
INR Cancelled 07/21/25 14:11
APTT Cancelled 07/24/25 07:40
Estimated Creat Clear 52 ml/min 07/30/25 06:00
Lactic Acid 0.8 mmol/L (0.7-2.0) 07/22/25 08:29
Total Bilirubin 0.3 mg/dl (0.2-1.3) 07/26/25 05:02
AST 18 U/L (14-36) 07/26/25 05:02
ALT 14 U/L (0-35) 07/26/25 05:02
Alkaline Phosphatase 47 U/L (38-126) 07/26/25 05:02
Most recent labs reviewed.
Micro Results:
07/12/25 17:06 Blood Culture - Final
Blood/Venous No Growth - Final Report
07/11/25 19:37 Blood Culture - Final
Blood/Venous No Growth - Final Report
07/11/25 19:37 Blood Culture - Final
Blood/Venous No Growth - Final Report
07/12/25 11:37 Salmonella/Shigella Culture - Final
Feces/Stool No Salmonella, Shigella, Aeromonas or Plesiomonas species
isolated.
Campylobacter Culture - Final
No Campylobacter species isolated.
- Final
NO YERSINIA SPECIES ISOLATED
Shiga Toxin Test - Final
No E. coli Shiga Toxin 1 or 2 detected.
Stool Leukocytes - Final
07/12/25 11:37 Cryptosporidium/Giardia - Final
Feces/Stool Negative for Cryptosporidium and/or Giardia Lamblia
antigens.
C. difficile GDH Antigen & Toxins - Final
C. difficile antigen positive, toxin negative.
Clostridium difficile present, but toxin not detected.
Patient may be a carrier, colonized with nontoxinogenic
strain or the level of toxin in sample is below detection
limits. This information should be used in conjunction with
the patient's clinical history.
- Final
Negative for Norovirus GI and GII.
Imaging:
07/29/25: Persistent terminal ileitis with a similar degree of wall thickening but some improved inflammatory fat stranding compared to the CT abdomen/pelvis from 07/20/2025. Improvement of the previously seen small bowel obstruction. Some small bowel
loops remain borderline dilated and contrast material has not yet passed into the ileum or colon. Follow-up abdominal radiographs could be performed to assess for further contrast passage.
07/16/2025 CT abdomen/pelvis angio: severe acute small bowel ischemia with pneumatosis is noted. Moderate mesenteric edema, and small volume ascites noted. There is complete occlusion of the superior mesenteric artery. Severe calcific
atherosclerotic plaque in the abdominal aorta and iliac arteries. Moderate diverticulosis in the descending colon. Please see full dictation for additional detail.
07/11/2025 CT abdomen/pelvis without contrast: evaluation is limited without intravenous or oral contrast. No gross focal intrinsic abnormality of the unopacified liver, spleen, pancreas, kidneys or adrenal glands. No significant perinephric
stranding. Small gallstones are seen within a borderline prominent gallbladder. No biliary tract dilatation. Evaluation of the intestinal tract is markedly limited, but no intestinal obstruction or free air is noted. Please see full dictation
for additional detail.
[2025-07-30] MEDS: NOVOLOG FLEXPEN-LOW RESISTANCE 2 UNITS SC (12:57)
[2025-07-30 13:01] LABS: Glucose - Point of Care 213 mg/dl (70-99)
--- NOTE | 2025-07-30 13:37 | CM ---
WBC 13.9, poor PO tolerance to reg diet, worsening abd pain with cramping. Discharge POC: Previous therapy rec was SNF. Scheduled to go to [facility] and auth was obtained from 07/28/25 to 08/03/25. Did not go due to medical instability. Therapy rec
today is HH vs SNF. Will need to determine when patient is medically cleared for discharge.
[2025-07-30 15:30] VITALS: BP 128/71
[2025-07-30 17:24] LABS: Glucose - Point of Care 177 mg/dl (70-99)
[2025-07-30] MEDS: NOVOLOG FLEXPEN-LOW RESISTANCE 1 UNITS SC (18:05)
[2025-07-30 19:26] VITALS: BP 119/58
[2025-07-30] MEDS: LOTRIMIN 1% CREAM 1 APPLIC TOPICAL (19:45)
[2025-07-30 21:46] LABS: Glucose - Point of Care 149 mg/dl (70-99)
[2025-07-30 23:13] VITALS: BP 122/65
[2025-07-31] MEDS: FIRVANQ 125 MG PO ×4 (00:32→17:57)
[2025-07-31] MEDS: TYLENOL ORAL SOLUTION 650 MG PO ×3 (00:40→13:55)
[2025-07-31 03:37] VITALS: BP 115/56
[2025-07-31] MEDS: ZOSYN 50 IV ×4 (04:28→21:34)
[2025-07-31 04:48] LABS: Hematocrit 27.7 % (37.0-47.0); Hemoglobin 9.0 g/dL (12.0-16.0); Mean Corp Hgb Conc. 32.5 g/dL (33.0-37.0); Mean Corpuscular Volume 94.2 fL (81.0-99.0); Platelet Count 362 10^3/uL (130-400); Red Cell Dist. Width 19.9 % (11.5-14.5)
[2025-07-31 04:56] VITALS: BMI 28.7
[2025-07-31 05:12] LABS: Blood Urea Nitrogen 7 mg/dl (7-17); Calcium 7.7 mg/dl (8.4-10.2); Carbon Dioxide 27 mmol/L (22-30); Chloride 102 mmol/L (98-107); Estimated Creatinine Clearance 73 ml/min; Glucose 81 mg/dl (70-99); Magnesium 2.1 mg/dl (1.6-2.3); Potassium 3.9 mmol/L (3.5-5.1); Sodium 133 mmol/L (135-145); eGFR > 60.00
[2025-07-31] MEDS: SYNTHROID 75 MCG PO (06:05)
[2025-07-31 07:54] VITALS: BP 136/71
[2025-07-31 07:54] LABS: Glucose - Point of Care 95 mg/dl (70-99)
[2025-07-31] MEDS: NOVOLOG FLEXPEN-LOW RESISTANCE SC (08:40)
--- NOTE | 2025-07-31 08:46 | W.PN.HOSP.TC ---
Today's Communication/Plan
-
see bold
Assessment / Plan
Assessment / Plan
HPI: 69y F with PMH significant for s/p BioAVR, post-op CVA and subsequent hospitalization for CHF who presents to ED complaining of N/V/D since last PM.
Assessment/plan:
#Sepsis POA, resolved.
- Lactic acidosis resolved.
- Stool studies positive for C. difficile antigen, negative for toxin
- Appreciate ID input, Zosyn completed on 07/26, zosyn resumed on 07/29
- Continue oral vancomycin as per ID
#Severe acute small bowel ischemia secondary to complete occlusion of the SMA artery with severe underlying PAD
- Appreciate vascular surgery input, s/p emergent intravascular lithotripsy to SMA + balloon angioplasty and stenting of proximal SMA 07/16
- Was on carb controlled diet status post TPN, but had abd pain 07/29
- 07/29 CT abd/pel with persistent terminal ileitis but improving and over a shorter segment than previous imaging
- Appreciate general surgery input, recommend full liquid diet with protein supplements twice daily, with eventual transition to simple dietary foods (low fat, low fiber, simple carbs and proteins) but not yet ready
- Continue Eliquis and Plavix
#Change in mental status on 07/21, resolved
#Adrenal insufficiency
#Hyponatremia
After ruling out hemodynamic instability, code stroke was called. Stroke was ruled out by examination and imaging studies
Toxic metabolic encephalopathy secondary to combination of adrenal insufficiency and Dilaudid use
Suspect her previous altered mental status was due to hyponatremia
07/30 Sodium 131, oral hydrocortisone changed back to IV Solu-Cortef 25 mg daily
PMH: Panhypopituitarism/ Adrenal Insufficiency
#Hemorrhagic shock
- Resolved
#Acute urinary retention
Resolved.
#Episode of SVT
Seen by cardiology, who recommends continuing her beta-keanu, they have signed off
# Worsening anemia, due to sepsis, acute blood loss, and anemia of chronic disease
- Appreciate hematology input, due to sepsis, acute blood loss, mild hemolysis, and anemia of chronic disease
- Status post 4 units packed red blood cells, 2 units of FFP on 07/16
- Monitor hemoglobin, transfuse as needed
#Hypomagnesemia
#Hypokalemia
#Hypophosphatemia
Replete as needed
#Coffee-ground emesis, resolved, tolerating oral intake.
- Started on Protonix 40 mg IV twice daily, change to oral QD.
#Paroxysmal Atrial Fibrillation with rapid ventricular response
Controlled, c/w BB, Eliquis.
Aortic Stenosis s/p BioAVR
Mild acute on Chronic HFpEF
- Hold Farxiga
- Resolved status post Lasix 80 mg IV twice daily, continue oral Lasix 80 mg p.o. daily
S/p CVA
- CVA POD #1 after AVR. Transferred to [facility] for TCAR.
- No new neurologic deficits.
- Continue Plavix
PANTERA
- Likely due to dehydration +/- Bactrim use / med effect
Resolved
Prolonged QTc
Mild
- Continue Tigan IM as needed
Hypothyroidism
- Continue current T4 replacement
DM-II
-Continue sliding scale insulin
Frequent UTIs
DVT Prophylaxis: Eliquis
Code Status: Full
Dispo - PT rec SNF - [facility]
Updated at bedside 07/31
Total time spent to see the patient on the floor, examine the patient, review data and lab results, discuss treatment plan with patient, nursing staff around 40 minutes.
Physical Exam
General: No acute distress,
HEENT: Normocephalic, Atraumatic, EOMI, MMM
Respiratory: Clear to Auscultation bilaterally
Cardiac: Normal S1/S2, RRR
GI: Soft, not distended, tender at the epigastrium
Incisions clean/dry/intact
Extremities: No Clubbing, Cyanosis
Improving LE edema noted
Neuro: AAOX3, followed commands. Non focal.
Psych : calm
Anticipated Discharge: 24 - 48 hours
Subjective/Interval History
-
Date of Service: July 31, 2025
Patient reports intermittent abdominal pain, occurring randomly, waxing waning. Denies nausea, denies vomiting. No fever.
Objective Data
-
Labs:
Laboratory Results
07/31/25
03:30
WBC 10.5
Hgb 9.0 L
Hct 27.7 L
Plt Count 362
Sodium 133 L
Potassium 3.9
Chloride 102
Carbon Dioxide 27
BUN 7
Creatinine 0.7
Glucose 81
Calcium 7.7 L
Vital Signs:
Vital Signs
Temp Pulse Resp BP Pulse Ox
97.9 F 72 16 136/71 99
07/31/25 07:54 07/31/25 07:54 07/31/25 07:54 07/31/25 07:54 07/31/25 07:54
I&O
07/30/25 07/31/25 08/01/25
06:59 06:59 06:59
Intake Total 1350 / 1350 1650 / 1650
Balance 1350 / 1350 1650 / 1650
[2025-07-31] MEDS: CRESTOR 20 MG PO (09:12)
[2025-07-31] MEDS: SOLU-CORTEF 25 MG IV (09:12)
[2025-07-31] MEDS: LASIX 80 MG PO (09:12)
[2025-07-31] MEDS: VISBIOME 1 CAP PO (09:12)
[2025-07-31] MEDS: PLAVIX 75 MG PO (09:12)
[2025-07-31] MEDS: PROTONIX 40 MG PO (09:13)
[2025-07-31] MEDS: TOPROL XL 25 MG PO ×2 (09:13→20:01)
[2025-07-31] MEDS: ELIQUIS 5 MG PO ×2 (09:13→20:00)
[2025-07-31] MEDS: LOTRIMIN 1% CREAM TOPICAL ×2 (09:14→20:09)
[2025-07-31 11:57] VITALS: BP 123/70
[2025-07-31 13:31] LABS: Glucose - Point of Care 209 mg/dl (70-99)
[2025-07-31] MEDS: NOVOLOG FLEXPEN-LOW RESISTANCE 2 UNITS SC (13:35)
--- NOTE | 2025-07-31 14:54 | W.PN.ID1 ---
Date of Service
Date of Service: July 31, 2025
Today's Communication
Continue Zosyn and enteric Vancomycin.
Assessment / Plan
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
- s/p intravascular lithotripsy to SMA calcified stenosis/occlusion (07/16/2025)
A-fib with RVR.
GI bleed
Leukocytosis
- resolved
C. difficile antigen (+) / toxin (-)
Diarrhea - improving
Aortic Stenosis
Hypertension
HFpEF
Paroxysmal Atrial Fibrillation
DM-II
Panhypopituitarism (Rathke's Cleft Cyst)
Hypothyroidism
Adrenal Insufficiency
Recurrent UTIs
Diverticular Disease
Recommendations:
Course of Zosyn completed 07/26.
Continue Zosyn (d3). Abx resumed 07/29 due to leukocytosis and CT a/p persistent ileitis. Abd pain improved. Leukocytosis resolved.
Continue enteral vancomycin for an additional 5-7 days.
Continue with supportive measures.
����������������������������������������������������������
Chief Complaint
-: Leukocytosis, Clinical Sepsis and C-diff (colonization)
Subjective / Review of Systems
Abd rumbling, passing gas. 1 BM today.
Vital Signs / Physical Exam
Vital Signs
Vital Signs
Temp Pulse Resp BP Pulse Ox
98.1 F 72 16 123/70 97
07/31/25 11:57 07/31/25 11:57 07/31/25 11:57 07/31/25 11:57 07/31/25 12:00
Physical Exam
Constitutional: No Acute Distress
Eyes: Sclera Anicteric
Cardiovascular: Regular Rate and S1/S2
Pulmonary: Clear and Non Labored
Gastrointestinal: Soft, Non Tender, Distended (Minimal) and Normal Bowel Sounds
Extremities: Edema; Negative Cyanosis or Erythema
Neurological: AO x 3
Objective Data
Lab Data
Lab Results
07/31/25 03:30
07/31/25 03:30
PT Cancelled 07/21/25 14:11
INR Cancelled 07/21/25 14:11
APTT Cancelled 07/24/25 07:40
Estimated Creat Clear 73 ml/min 07/31/25 03:30
Lactic Acid 0.8 mmol/L (0.7-2.0) 07/22/25 08:29
Total Bilirubin 0.3 mg/dl (0.2-1.3) 07/26/25 05:02
AST 18 U/L (14-36) 07/26/25 05:02
ALT 14 U/L (0-35) 07/26/25 05:02
Alkaline Phosphatase 47 U/L (38-126) 07/26/25 05:02
Most recent labs reviewed.
Micro Results:
07/12/25 17:06 Blood Culture - Final
Blood/Venous No Growth - Final Report
07/11/25 19:37 Blood Culture - Final
Blood/Venous No Growth - Final Report
07/11/25 19:37 Blood Culture - Final
Blood/Venous No Growth - Final Report
07/12/25 11:37 Salmonella/Shigella Culture - Final
Feces/Stool No Salmonella, Shigella, Aeromonas or Plesiomonas species
isolated.
Campylobacter Culture - Final
No Campylobacter species isolated.
- Final
NO YERSINIA SPECIES ISOLATED
Shiga Toxin Test - Final
No E. coli Shiga Toxin 1 or 2 detected.
Stool Leukocytes - Final
07/12/25 11:37 Cryptosporidium/Giardia - Final
Feces/Stool Negative for Cryptosporidium and/or Giardia Lamblia
antigens.
C. difficile GDH Antigen & Toxins - Final
C. difficile antigen positive, toxin negative.
Clostridium difficile present, but toxin not detected.
Patient may be a carrier, colonized with nontoxinogenic
strain or the level of toxin in sample is below detection
limits. This information should be used in conjunction with
the patient's clinical history.
- Final
Negative for Norovirus GI and GII.
Imaging:
07/29/25: Persistent terminal ileitis with a similar degree of wall thickening but some improved inflammatory fat stranding compared to the CT abdomen/pelvis from 07/20/2025. Improvement of the previously seen small bowel obstruction. Some small bowel
loops remain borderline dilated and contrast material has not yet passed into the ileum or colon. Follow-up abdominal radiographs could be performed to assess for further contrast passage.
07/16/2025 CT abdomen/pelvis angio: severe acute small bowel ischemia with pneumatosis is noted. Moderate mesenteric edema, and small volume ascites noted. There is complete occlusion of the superior mesenteric artery. Severe calcific
atherosclerotic plaque in the abdominal aorta and iliac arteries. Moderate diverticulosis in the descending colon. Please see full dictation for additional detail.
07/11/2025 CT abdomen/pelvis without contrast: evaluation is limited without intravenous or oral contrast. No gross focal intrinsic abnormality of the unopacified liver, spleen, pancreas, kidneys or adrenal glands. No significant perinephric
stranding. Small gallstones are seen within a borderline prominent gallbladder. No biliary tract dilatation. Evaluation of the intestinal tract is markedly limited, but no intestinal obstruction or free air is noted. Please see full dictation
for additional detail.
[2025-07-31 15:10] VITALS: BP 142/79
[2025-07-31 17:51] LABS: Glucose - Point of Care 181 mg/dl (70-99)
[2025-07-31] MEDS: NOVOLOG FLEXPEN-LOW RESISTANCE 1 UNITS SC (17:57)
[2025-07-31 19:21] VITALS: BP 138/70
[2025-07-31 22:04] LABS: Glucose - Point of Care 137 mg/dl (70-99)
[2025-07-31 23:18] VITALS: BP 134/71
[2025-08-01] MEDS: FIRVANQ 125 MG PO ×5 (00:11→23:47)
[2025-08-01] MEDS: TYLENOL 650 MG PO ×2 (00:24→09:59)
[2025-08-01 03:18] VITALS: BP 137/57
[2025-08-01] MEDS: ZOSYN 50 IV ×4 (03:47→22:00)
[2025-08-01] MEDS: SYNTHROID 75 MCG PO (05:53)
[2025-08-01 06:00] VITALS: BMI 28.7
[2025-08-01 06:26] LABS: Hematocrit 28.6 % (37.0-47.0); Hemoglobin 9.3 g/dL (12.0-16.0); Mean Corp Hgb Conc. 32.5 g/dL (33.0-37.0); Mean Corpuscular Volume 95.7 fL (81.0-99.0); Platelet Count 366 10^3/uL (130-400); Red Cell Dist. Width 19.9 % (11.5-14.5)
[2025-08-01 06:48] LABS: Blood Urea Nitrogen 5 mg/dl (7-17); Calcium 7.9 mg/dl (8.4-10.2); Carbon Dioxide 27 mmol/L (22-30); Chloride 104 mmol/L (98-107); Estimated Creatinine Clearance 73 ml/min; Glucose 73 mg/dl (70-99); Potassium 3.6 mmol/L (3.5-5.1); Sodium 133 mmol/L (135-145); eGFR > 60.00
[2025-08-01 07:35] VITALS: BP 152/72
[2025-08-01 07:41] LABS: Glucose - Point of Care 73 mg/dl (70-99)
--- NOTE | 2025-08-01 08:44 | W.PN.HOSP.TC ---
Today's Communication/Plan
-
see bold
Assessment / Plan
Assessment / Plan
HPI: 69y F with PMH significant for s/p BioAVR, post-op CVA and subsequent hospitalization for CHF who presents to ED complaining of N/V/D since last PM.
Assessment/plan:
#Sepsis POA, resolved.
- Lactic acidosis resolved.
- Stool studies positive for C. difficile antigen, negative for toxin
- Appreciate ID input, Zosyn completed on 07/26, zosyn resumed on 07/29
- Continue oral vancomycin as per ID
#Severe acute small bowel ischemia secondary to complete occlusion of the SMA artery with severe underlying PAD
- Appreciate vascular surgery input, s/p emergent intravascular lithotripsy to SMA + balloon angioplasty and stenting of proximal SMA 07/16
- Was on carb controlled diet status post TPN, but had abd pain 07/29
- 07/29 CT abd/pel with persistent terminal ileitis but improving and over a shorter segment than previous imaging
- Appreciate general surgery input, recommend full liquid diet with protein supplements twice daily, with eventual transition to simple dietary foods (low fat, low fiber, simple carbs and proteins) but not yet ready
- Start bentyl & gas X prn, continue Eliquis and Plavix
#Change in mental status on 07/21, resolved
#Adrenal insufficiency
#Hyponatremia
After ruling out hemodynamic instability, code stroke was called. Stroke was ruled out by examination and imaging studies
Toxic metabolic encephalopathy secondary to combination of adrenal insufficiency and Dilaudid use
Suspect her previous altered mental status was due to hyponatremia (Na 126)
07/30 Sodium 131, oral hydrocortisone changed back to IV Solu-Cortef 25 mg daily
PMH: Panhypopituitarism/ Adrenal Insufficiency
#Hemorrhagic shock
- Resolved
#Acute urinary retention
Resolved.
#Episode of SVT
Seen by cardiology, who recommends continuing her beta-keanu, they have signed off
# Worsening anemia, due to sepsis, acute blood loss, and anemia of chronic disease
- Appreciate hematology input, due to sepsis, acute blood loss, mild hemolysis, and anemia of chronic disease
- Status post 4 units packed red blood cells, 2 units of FFP on 07/16
- Monitor hemoglobin, transfuse as needed
#Hypomagnesemia
#Hypokalemia
#Hypophosphatemia
Replete as needed
#Coffee-ground emesis, resolved, tolerating oral intake.
- Started on Protonix 40 mg IV twice daily, change to oral QD.
#Paroxysmal Atrial Fibrillation with rapid ventricular response
Controlled, c/w BB, Eliquis.
Aortic Stenosis s/p BioAVR
Mild acute on Chronic HFpEF
- Hold Farxiga
- Resolved status post Lasix 80 mg IV twice daily, continue oral Lasix 80 mg p.o. daily
S/p CVA
- CVA POD #1 after AVR. Transferred to [facility] for TCAR.
- No new neurologic deficits.
- Continue Plavix
PANTERA
- Likely due to dehydration +/- Bactrim use / med effect
Resolved
Prolonged QTc
Mild
- Continue Tigan IM as needed
Hypothyroidism
- Continue current T4 replacement
DM-II
-Continue sliding scale insulin
Frequent UTIs
DVT Prophylaxis: Eliquis
Code Status: Full
Dispo - PT rec SNF - [facility]
Updated at bedside 08/01
Total time spent to see the patient on the floor, examine the patient, review data and lab results, discuss treatment plan with patient, nursing staff around 51 minutes.
Physical Exam
General: No acute distress,
HEENT: Normocephalic, Atraumatic, EOMI, MMM
Respiratory: Clear to Auscultation bilaterally
Cardiac: Normal S1/S2, RRR
GI: Soft, not distended, tender at the epigastrium
Incisions clean/dry/intact
Extremities: No Clubbing, Cyanosis
Improving LE edema noted
Neuro: AAOX3, followed commands. Non focal.
Psych : calm
Anticipated Discharge: 24 - 48 hours
Subjective/Interval History
-
Date of Service: July 31, 2025
Patient complains of postprandial pain, 7 out of 10 in intensity. Associated symptoms include bloating, gas, gurgling. Denies chest pain, denies shortness of breath. No fever, no vomiting.
Objective Data
-
Labs:
Laboratory Results
07/31/25
03:30
WBC 10.5
Hgb 9.0 L
Hct 27.7 L
Plt Count 362
Sodium 133 L
Potassium 3.9
Chloride 102
Carbon Dioxide 27
BUN 7
Creatinine 0.7
Glucose 81
Calcium 7.7 L
Vital Signs:
Vital Signs
Temp Pulse Resp BP Pulse Ox
98.1 F 72 16 123/70 97
07/31/25 11:57 07/31/25 11:57 07/31/25 11:57 07/31/25 11:57 07/31/25 12:00
I&O
07/30/25 07/31/25 08/01/25
06:59 06:59 06:59
Intake Total 1350 / 1350 1650 / 1650
Balance 1350 / 1350 1650 / 1650
[2025-08-01] MEDS: NOVOLOG FLEXPEN-LOW RESISTANCE SC ×2 (09:20→17:43)
[2025-08-01] MEDS: SOLU-CORTEF 25 MG IV (09:20)
[2025-08-01] MEDS: LASIX 80 MG PO (09:26)
[2025-08-01] MEDS: CRESTOR 20 MG PO (09:26)
[2025-08-01] MEDS: VISBIOME 1 CAP PO (09:26)
[2025-08-01] MEDS: TOPROL XL 25 MG PO ×2 (09:27→21:57)
[2025-08-01] MEDS: ELIQUIS 5 MG PO ×2 (09:27→21:59)
[2025-08-01] MEDS: LOTRIMIN 1% CREAM TOPICAL (09:27)
[2025-08-01] MEDS: PROTONIX 40 MG PO (09:27)
[2025-08-01] MEDS: PLAVIX 75 MG PO (09:28)
--- NOTE | 2025-08-01 09:43 | W.PN.ID1 ---
Date of Service
Date of Service: August 01, 2025
Today's Communication
Continue Zosyn and po Vanco.
Assessment / Plan
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
- s/p intravascular lithotripsy to SMA calcified stenosis/occlusion (07/16/2025)
A-fib with RVR.
GI bleed
Leukocytosis
- resolved
C. difficile antigen (+) / toxin (-)
Diarrhea - improving
Aortic Stenosis
Hypertension
HFpEF
Paroxysmal Atrial Fibrillation
DM-II
Panhypopituitarism (Rathke's Cleft Cyst)
Hypothyroidism
Adrenal Insufficiency
Recurrent UTIs
Diverticular Disease
Recommendations:
Course of Zosyn completed 07/26.
Continue Zosyn (d4). Abx resumed 07/29 due to leukocytosis and CT a/p persistent ileitis.
Continue enteral vancomycin for an additional 5-7 days.
Continue with supportive measures.
����������������������������������������������������������
Chief Complaint
-: Leukocytosis, Clinical Sepsis and C-diff (colonization)
Subjective / Review of Systems
Will try cream-of wheat today. No further rumbling and gas in abdomen.
Vital Signs / Physical Exam
Vital Signs
Vital Signs
Temp Pulse Resp BP Pulse Ox
98.7 F 76 18 152/72 100
08/01/25 07:35 08/01/25 07:35 08/01/25 07:35 08/01/25 07:35 08/01/25 07:35
Physical Exam
Constitutional: No Acute Distress
Cardiovascular: Regular Rate and S1/S2
Pulmonary: Clear
Gastrointestinal: Soft and Tender (mild right lower abd)
Genito-Urinary: Negative CVA Tenderness
Neurological: AO x 3
Objective Data
Lab Data
Lab Results
08/01/25 06:05
08/01/25 06:05
PT Cancelled 07/21/25 14:11
INR Cancelled 07/21/25 14:11
APTT Cancelled 07/24/25 07:40
Estimated Creat Clear 73 ml/min 08/01/25 06:05
Lactic Acid 0.8 mmol/L (0.7-2.0) 07/22/25 08:29
Total Bilirubin 0.3 mg/dl (0.2-1.3) 07/26/25 05:02
AST 18 U/L (14-36) 07/26/25 05:02
ALT 14 U/L (0-35) 07/26/25 05:02
Alkaline Phosphatase 47 U/L (38-126) 07/26/25 05:02
Most recent labs reviewed.
Micro Results:
07/12/25 17:06 Blood Culture - Final
Blood/Venous No Growth - Final Report
07/11/25 19:37 Blood Culture - Final
Blood/Venous No Growth - Final Report
07/11/25 19:37 Blood Culture - Final
Blood/Venous No Growth - Final Report
07/12/25 11:37 Salmonella/Shigella Culture - Final
Feces/Stool No Salmonella, Shigella, Aeromonas or Plesiomonas species
isolated.
Campylobacter Culture - Final
No Campylobacter species isolated.
- Final
NO YERSINIA SPECIES ISOLATED
Shiga Toxin Test - Final
No E. coli Shiga Toxin 1 or 2 detected.
Stool Leukocytes - Final
07/12/25 11:37 Cryptosporidium/Giardia - Final
Feces/Stool Negative for Cryptosporidium and/or Giardia Lamblia
antigens.
C. difficile GDH Antigen & Toxins - Final
C. difficile antigen positive, toxin negative.
Clostridium difficile present, but toxin not detected.
Patient may be a carrier, colonized with nontoxinogenic
strain or the level of toxin in sample is below detection
limits. This information should be used in conjunction with
the patient's clinical history.
- Final
Negative for Norovirus GI and GII.
Imaging:
07/29/25: Persistent terminal ileitis with a similar degree of wall thickening but some improved inflammatory fat stranding compared to the CT abdomen/pelvis from 07/20/2025. Improvement of the previously seen small bowel obstruction. Some small bowel
loops remain borderline dilated and contrast material has not yet passed into the ileum or colon. Follow-up abdominal radiographs could be performed to assess for further contrast passage.
07/16/2025 CT abdomen/pelvis angio: severe acute small bowel ischemia with pneumatosis is noted. Moderate mesenteric edema, and small volume ascites noted. There is complete occlusion of the superior mesenteric artery. Severe calcific
atherosclerotic plaque in the abdominal aorta and iliac arteries. Moderate diverticulosis in the descending colon. Please see full dictation for additional detail.
07/11/2025 CT abdomen/pelvis without contrast: evaluation is limited without intravenous or oral contrast. No gross focal intrinsic abnormality of the unopacified liver, spleen, pancreas, kidneys or adrenal glands. No significant perinephric
stranding. Small gallstones are seen within a borderline prominent gallbladder. No biliary tract dilatation. Evaluation of the intestinal tract is markedly limited, but no intestinal obstruction or free air is noted. Please see full dictation
for additional detail.
[2025-08-01] MEDS: MYLICON 80 MG PO ×2 (10:23→17:38)
[2025-08-01] MEDS: BENTYL 20 MG PO ×2 (10:23→17:38)
[2025-08-01 11:06] VITALS: BP 140/71
[2025-08-01] MEDS: KCL ELIXIR 40 MEQ PO (12:00)
--- NOTE | 2025-08-01 12:32 | W.PN.GS2 ---
Addendum entered and electronically signed by Terrell Castaneda MD 08/01/25 18:02:
I saw and examined the patient.
The Chief Operations Officer's note was reviewed and I agree with the note.
Comment: C/o ongoing crampy pain with PO intake, tolerating boost BID, belly soft, mild diffuse ttp, c dif + now on PO vanc. Would cont current mgmt
Original Note:
Today's Communication / Plan
-
Full liquids
Assessment / Plan
-
Patient is a 69 yo F p/w acute mesenteric ischemia
POD #15 status post diagnostic laparoscopy with bowel edema, but no advanced/irreversible ischemia
POD #15 status post angiogram, angioplasty and SMA stent placement
WBC normal
Afebrile
h/h stable on Plavix daily/Eliquis 5mg BID
Poor PO tolerance overall but tolerating FLD thus far. Taking in protein shakes BID on FLD
CT on 07/29/25 with persistent terminal ileitis but improving and over a shorter segment than previous imaging.
Zosyn resumed on 07/29. Started on Oral Vanc for C-diff antigen +/toxin -, will follow for improvement in GI symptoms on this regimen
Plan:
-- Continue on FLD with BID protein supplements, eventual transition to simple dietary foods (low fat, low fiber, simple carbs and proteins) but not yet ready
-- ABX as per ID
-- Medical management as per primary
Subjective Data
-
Date of Service: August 01, 2025
Pt seen and examined at bedside with Dr Castaneda. Cramping pain with PO intake. Able to drink protein shakes. Diarrhea persists. Denies nausea/vomiting.
Objective Data
-
Intake and Output
07/31/25 08/01/25 08/02/25
06:59 06:59 06:59
Intake Total 1650 / 1650 1830 / 1830
Balance 1650 / 1650 183 / 1829
Intake:
Oral fluids 1600 / 1600 178 / 1779
IV piggybacks 50 / 50 50 / 50
Other:
How many times incontinent 3
MODERATE amount urine
Number of approximated MODERATE 6 2
amounts of urine
Number of approximated LARGE 3 2
amounts of urine
Number of unmeasured liquid
stools
Rectum 2 1 1
Vital Signs
Temp Pulse Resp BP Pulse Ox
98.6 F 78 16 140/71 100
08/01/25 11:06 08/01/25 11:06 08/01/25 11:06 08/01/25 11:06 08/01/25 11:06
Lab Results
08/01/25 06:05
08/01/25 06:05
Calcium 7.9 mg/dl (8.4-10.2) L 08/01/25 06:05
Phosphorus 3.6 mg/dl (2.5-4.5) 07/29/25 06:23
Magnesium 2.1 mg/dl (1.6-2.3) 07/31/25 03:30
Total Bilirubin 0.3 mg/dl (0.2-1.3) 07/26/25 05:02
Direct Bilirubin 0.7 mg/dl (0.0-0.4) H 07/16/25 15:10
AST 18 U/L (14-36) 07/26/25 05:02
ALT 14 U/L (0-35) 07/26/25 05:02
Alkaline Phosphatase 47 U/L (38-126) 07/26/25 05:02
Total Protein 4.8 g/dl (6.3-8.2) L 07/26/25 05:02
Albumin 2.5 g/dl (3.5-5.0) L 07/26/25 05:02
Physical Exam
-
Gen: NAD
Abd: soft, mild distention, generalized tenderness predominantly on the right, non-peritoneal, incisions c/d/i - mild ecchymosis
Patient has a tidwell catheter: No
Patient has a central line: No
[2025-08-01 13:26] LABS: Glucose - Point of Care 227 mg/dl (70-99)
[2025-08-01] MEDS: NOVOLOG FLEXPEN-LOW RESISTANCE 2 UNITS SC (13:28)
[2025-08-01 15:44] VITALS: BP 125/65
[2025-08-01 17:31] LABS: Glucose - Point of Care 179 mg/dl (70-99)
[2025-08-01] MEDS: ROXICODONE 5 MG PO ×2 (19:30→23:47)
[2025-08-01 19:33] VITALS: BP 139/70
[2025-08-01] MEDS: LOTRIMIN 1% CREAM 1 APPLIC TOPICAL (21:59)
[2025-08-01 22:12] LABS: Glucose - Point of Care 120 mg/dl (70-99)
[2025-08-01 23:33] VITALS: BP 134/78
[2025-08-02 03:24] VITALS: BP 147/69
[2025-08-02 04:52] LABS: Hematocrit 28.9 % (37.0-47.0); Hemoglobin 9.6 g/dL (12.0-16.0); Mean Corp Hgb Conc. 33.2 g/dL (33.0-37.0); Mean Corpuscular Volume 95.7 fL (81.0-99.0); Platelet Count 370 10^3/uL (130-400); Red Cell Dist. Width 19.5 % (11.5-14.5)
[2025-08-02] MEDS: FIRVANQ 125 MG PO ×4 (05:14→23:02)
[2025-08-02] MEDS: ZOSYN 50 IV ×4 (05:14→22:40)
[2025-08-02] MEDS: SYNTHROID 75 MCG PO (05:14)
[2025-08-02 05:22] LABS: Blood Urea Nitrogen 5 mg/dl (7-17); Calcium 8.1 mg/dl (8.4-10.2); Carbon Dioxide 27 mmol/L (22-30); Chloride 103 mmol/L (98-107); Estimated Creatinine Clearance 86 ml/min; Glucose 66 mg/dl (70-99); Magnesium 1.9 mg/dl (1.6-2.3); Potassium 3.7 mmol/L (3.5-5.1); Sodium 135 mmol/L (135-145); eGFR > 60.00
[2025-08-02 06:00] VITALS: BMI 28.5
[2025-08-02 07:33] VITALS: BP 151/83
[2025-08-02 08:02] LABS: Glucose - Point of Care 80 mg/dl (70-99)
[2025-08-02] MEDS: NOVOLOG FLEXPEN-LOW RESISTANCE SC ×2 (08:22→17:09)
[2025-08-02] MEDS: CRESTOR 20 MG PO (08:23)
[2025-08-02] MEDS: TOPROL XL 25 MG PO ×2 (08:23→20:45)
[2025-08-02] MEDS: ELIQUIS 5 MG PO ×2 (08:23→20:45)
[2025-08-02] MEDS: VISBIOME 1 CAP PO (08:23)
[2025-08-02] MEDS: SOLU-CORTEF 25 MG IV (08:23)
[2025-08-02] MEDS: PROTONIX 40 MG PO (08:23)
[2025-08-02] MEDS: LASIX 80 MG PO (08:24)
[2025-08-02] MEDS: PLAVIX 75 MG PO (08:24)
[2025-08-02] MEDS: DESENEX/MITRAZOL/ZEASORB 1 APPLIC TOPICAL (08:25)
[2025-08-02] MEDS: BENTYL 20 MG PO (08:39)
[2025-08-02] MEDS: MYLICON 80 MG PO (08:39)
[2025-08-02] MEDS: LOTRIMIN 1% CREAM TOPICAL (09:04)
--- NOTE | 2025-08-02 09:55 | W.PN.HOSP.TC ---
Today's Communication/Plan
-
f/w surgery recommendations
Assessment / Plan
Assessment / Plan
Physical Exam
General: No acute distress,
HEENT: Normocephalic, Atraumatic, EOMI, MMM
Respiratory: Clear to Auscultation bilaterally
Cardiac: Normal S1/S2, RRR
GI: Soft, not distended, denies tenderness. Incisions clean/dry/intact
Extremities: No Clubbing, Cyanosis
Improving LE edema noted
Neuro: AAOX3, followed commands. Non focal.
Psych : calm
HPI: 69y F with PMH significant for s/p BioAVR, post-op CVA and subsequent hospitalization for CHF who presents to ED complaining of N/V/D since last PM.
Assessment/plan:
#Sepsis POA, resolved.
- Lactic acidosis resolved.
- Stool studies positive for C. difficile antigen, negative for toxin
- Appreciate ID input, Zosyn completed on 07/26, Zosyn resumed on 07/29
- Continue oral vancomycin as per ID
#Severe acute small bowel ischemia secondary to complete occlusion of the SMA artery with severe underlying PAD
- Appreciate vascular surgery input, s/p emergent intravascular lithotripsy to SMA + balloon angioplasty and stenting of proximal SMA 07/16
- Was on carb controlled diet status post TPN, but had abd pain 07/29
- 07/29 CT abd/pel with persistent terminal ileitis but improving and over a shorter segment than previous imaging
- Appreciate general surgery input, recommend full liquid diet with protein supplements twice daily, with eventual transition to simple dietary foods (low fat, low fiber, simple carbs and proteins) but not yet ready
- Start Bentyl & gas X prn, continue Eliquis and Plavix
#Change in mental status on 07/21, resolved
#Adrenal insufficiency
#Hyponatremia
After ruling out hemodynamic instability, code stroke was called. Stroke was ruled out by examination and imaging studies
Toxic metabolic encephalopathy secondary to combination of adrenal insufficiency, metabolic imbalance and Dilaudid use
Oral hydrocortisone changed back to IV Solu-Cortef 25 mg daily
PMH: Panhypopituitarism/ Adrenal Insufficiency
#Hemorrhagic shock
- Resolved
#Acute urinary retention
Resolved.
#Episode of SVT
Seen by cardiology, who recommends continuing her beta-keanu, they have signed off
# Worsening anemia, due to sepsis, acute blood loss, and anemia of chronic disease
- Appreciate hematology input, due to sepsis, acute blood loss, mild hemolysis, and anemia of chronic disease
- Status post 4 units packed red blood cells, 2 units of FFP on 07/16
- Monitor hemoglobin, transfuse as needed
#Hypomagnesemia
#Hypokalemia
#Hypophosphatemia
Replete as needed
#Coffee-ground emesis, resolved, tolerating oral intake.
- Started on Protonix 40 mg IV twice daily, change to oral QD.
#Paroxysmal Atrial Fibrillation with rapid ventricular response
Controlled, c/w BB, Eliquis.
Aortic Stenosis s/p BioAVR
Mild acute on Chronic HFpEF
- Hold Farxiga
- Resolved status post Lasix 80 mg IV twice daily, continue oral Lasix 80 mg p.o. daily
S/p CVA
- CVA POD #1 after AVR. Transferred to [place] for TCAR.
- No new neurologic deficits.
- Continue Plavix
PANTERA
- Likely due to dehydration +/- Bactrim use / med effect
Resolved
Prolonged QTc
Mild
- Continue Tigan IM as needed
Hypothyroidism
- Continue current T4 replacement
DM-II
-Continue sliding scale insulin
Frequent UTIs
DVT Prophylaxis: Eliquis
Code Status: Full
Dispo - PT rec SNF - [facility]
Total time spent to see the patient on the floor, examine the patient, review data and lab results, discuss treatment plan with patient, nursing staff around 55 minutes.
Anticipated Discharge: > 48 hours
Subjective/Interval History
-
Date of Service: August 02, 2025
She feels better
No abdominal pain
No nausea
Objective Data
-
Labs:
Laboratory Results
08/02/25
04:26
WBC 12.1 H
Hgb 9.6 L
Hct 28.9 L
Plt Count 370
Sodium 135
Potassium 3.7
Chloride 103
Carbon Dioxide 27
BUN 5 L
Creatinine 0.6
Glucose 66 L
Calcium 8.1 L
Vital Signs:
Vital Signs
Temp Pulse Resp BP Pulse Ox
98.1 F 78 18 151/83 100
08/02/25 07:33 08/02/25 08:24 08/02/25 07:33 08/02/25 08:24 08/02/25 07:33
I&O
08/01/25 08/02/25 08/03/25
06:59 06:59 06:59
Intake Total 1829 / 2259
Balance 1829 226 / 2259
--- NOTE | 2025-08-02 10:50 | W.PN.GS2 ---
Today's Communication / Plan
-
Advance diet
Assessment / Plan
-
Patient is a 69 yo F p/w acute mesenteric ischemia
POD #16 status post diagnostic laparoscopy with bowel edema, but no advanced/irreversible ischemia
POD #16 status post angiogram, angioplasty and SMA stent placement
Mild leukocytosis
Afebrile
h/h stable on Plavix daily/Eliquis 5mg BID
CT on 07/29/25 with persistent terminal ileitis but improving and over a shorter segment than previous imaging.
Zosyn resumed on 07/29. Started on Oral Vanc for C-diff antigen +/toxin -
Improvement in GI symptoms since starting oral vanc, better appetite today
Plan:
-- Trial of solid food today with lrd/ada diet, protein supplements BID
-- ABX as per ID
-- Medical management as per primary
Subjective Data
-
Date of Service: August 02, 2025
Pt seen and examined at bedside with Dr. Pierce. Denies n/v. Tolerating fulls better than previous. Less cramping, denies pain. Diarrhea slowing.
Objective Data
-
Intake and Output
08/01/25 08/02/25 08/03/25
06:59 06:59 06:59
Intake Total 1829 / 0 2259 / 2259
Balance 1830 / 1830 2259 / 2259
Intake:
Oral fluids 1780 / 1780 2259 / 2259
IV piggybacks 50 / 50
Other:
How many times incontinent 3
MODERATE amount urine
Number of approximated MODERATE 2 3
amounts of urine
Number of approximated LARGE 2 2
amounts of urine
Number of unmeasured liquid
stools
Rectum 1 4
Vital Signs
Temp Pulse Resp BP Pulse Ox
98.1 F 78 18 151/83 100
08/02/25 07:33 08/02/25 08:24 08/02/25 07:33 08/02/25 08:24 08/02/25 10:04
Lab Results
08/02/25 04:26
08/02/25 04:26
Calcium 8.1 mg/dl (8.4-10.2) L 08/02/25 04:26
Phosphorus 3.4 mg/dl (2.5-4.5) 08/02/25 04:26
Magnesium 1.9 mg/dl (1.6-2.3) 08/02/25 04:26
Total Bilirubin 0.3 mg/dl (0.2-1.3) 07/26/25 05:02
Direct Bilirubin 0.7 mg/dl (0.0-0.4) H 07/16/25 15:10
AST 18 U/L (14-36) 07/26/25 05:02
ALT 14 U/L (0-35) 07/26/25 05:02
Alkaline Phosphatase 47 U/L (38-126) 07/26/25 05:02
Total Protein 4.8 g/dl (6.3-8.2) L 07/26/25 05:02
Albumin 2.5 g/dl (3.5-5.0) L 07/26/25 05:02
Physical Exam
-
Gen: NAD
Abd: soft, ND, NT, non-peritoneal, incisions healing well
Patient has a tiwdell catheter: No
Patient has a central line: No
--- NOTE | 2025-08-02 11:04 | CM ---
Patient seen at bedside with also present on [address]. Patient plan is for transfer to [facility] pending bed availability. Per physicians patient not currently medically appropriate. Patient will need updated Auth as current auth expires 08/03/25.
CM will continue to follow for discharge planning needs.
Plan; SNF pending discharge planning needs. will need updated auth prior to discharge and confirmation of SNF bed at [facility].
[2025-08-02 11:42] VITALS: BP 135/71
[2025-08-02 11:53] LABS: Glucose - Point of Care 226 mg/dl (70-99)
[2025-08-02] MEDS: NOVOLOG FLEXPEN-LOW RESISTANCE 2 UNITS SC (12:30)
[2025-08-02] MEDS: TYLENOL 650 MG PO ×2 (14:44→20:54)
--- NOTE | 2025-08-02 15:24 | W.PN.ID1 ---
Date of Service
Date of Service: August 02, 2025
Today's Communication
Continue current antibiotics.
Assessment / Plan
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
- s/p intravascular lithotripsy to SMA calcified stenosis/occlusion (07/16/2025)
A-fib with RVR.
GI bleed
Leukocytosis
- Slightly up today.
C. difficile antigen (+) / toxin (-) (07/12/25)
Diarrhea -improved
Aortic Stenosis
Hypertension
HFpEF
Paroxysmal Atrial Fibrillation
DM-II
Panhypopituitarism (Rathke's Cleft Cyst)
Hypothyroidism
Adrenal Insufficiency
Recurrent UTIs
Diverticular Disease
Recommendations:
Continue Zosyn (d#5). Abx resumed 07/29 due to leukocytosis and CT a/p persistent ileitis.
Continue enteral vancomycin for 5-7 days following completion of systemic antibiotics.
Continue with supportive measures.
����������������������������������������������������������
Chief Complaint
-: Leukocytosis, Clinical Sepsis and C-diff (colonization)
Subjective / Review of Systems
Patient seen and examined. Reports feeling somewhat improved today. Denies abdominal pain.
Vital Signs / Physical Exam
Vital Signs
Vital Signs
Temp Pulse Resp BP Pulse Ox
98.7 F 73 18 135/71 98
08/02/25 11:42 08/02/25 11:42 08/02/25 11:42 08/02/25 11:42 08/02/25 11:42
Physical Exam
Constitutional: No Acute Distress
Cardiovascular: Regular Rate and S1/S2
Pulmonary: Clear
Gastrointestinal: Soft, Non Tender, Non Distended, Decreased Bowel Sounds, No Rebound and No Guarding
Genito-Urinary: Negative CVA Tenderness
Neurological: AO x 3
Objective Data
Lab Data
Lab Results
08/02/25 04:26
08/02/25 04:26
PT Cancelled 07/21/25 14:11
INR Cancelled 07/21/25 14:11
APTT Cancelled 07/24/25 07:40
Estimated Creat Clear 86 ml/min 08/02/25 04:26
Lactic Acid 0.8 mmol/L (0.7-2.0) 07/22/25 08:29
Total Bilirubin 0.3 mg/dl (0.2-1.3) 07/26/25 05:02
AST 18 U/L (14-36) 07/26/25 05:02
ALT 14 U/L (0-35) 07/26/25 05:02
Alkaline Phosphatase 47 U/L (38-126) 07/26/25 05:02
Most recent labs reviewed.
Micro Results:
07/12/25 17:06 Blood Culture - Final
Blood/Venous No Growth - Final Report
07/11/25 19:37 Blood Culture - Final
Blood/Venous No Growth - Final Report
07/11/25 19:37 Blood Culture - Final
Blood/Venous No Growth - Final Report
07/12/25 11:37 Salmonella/Shigella Culture - Final
Feces/Stool No Salmonella, Shigella, Aeromonas or Plesiomonas species
isolated.
Campylobacter Culture - Final
No Campylobacter species isolated.
- Final
NO YERSINIA SPECIES ISOLATED
Shiga Toxin Test - Final
No E. coli Shiga Toxin 1 or 2 detected.
Stool Leukocytes - Final
07/12/25 11:37 Cryptosporidium/Giardia - Final
Feces/Stool Negative for Cryptosporidium and/or Giardia Lamblia
antigens.
C. difficile GDH Antigen & Toxins - Final
C. difficile antigen positive, toxin negative.
Clostridium difficile present, but toxin not detected.
Patient may be a carrier, colonized with nontoxinogenic
strain or the level of toxin in sample is below detection
limits. This information should be used in conjunction with
the patient's clinical history.
- Final
Negative for Norovirus GI and GII.
Imaging:
07/29/25: Persistent terminal ileitis with a similar degree of wall thickening but some improved inflammatory fat stranding compared to the CT abdomen/pelvis from 07/20/2025. Improvement of the previously seen small bowel obstruction. Some small bowel
loops remain borderline dilated and contrast material has not yet passed into the ileum or colon. Follow-up abdominal radiographs could be performed to assess for further contrast passage.
07/16/2025 CT abdomen/pelvis angio: severe acute small bowel ischemia with pneumatosis is noted. Moderate mesenteric edema, and small volume ascites noted. There is complete occlusion of the superior mesenteric artery. Severe calcific
atherosclerotic plaque in the abdominal aorta and iliac arteries. Moderate diverticulosis in the descending colon. Please see full dictation for additional detail.
07/11/2025 CT abdomen/pelvis without contrast: evaluation is limited without intravenous or oral contrast. No gross focal intrinsic abnormality of the unopacified liver, spleen, pancreas, kidneys or adrenal glands. No significant perinephric
stranding. Small gallstones are seen within a borderline prominent gallbladder. No biliary tract dilatation. Evaluation of the intestinal tract is markedly limited, but no intestinal obstruction or free air is noted. Please see full dictation
for additional detail.
[2025-08-02 15:57] VITALS: BP 129/63
[2025-08-02 17:03] LABS: Glucose - Point of Care 124 mg/dl (70-99)
[2025-08-02 19:23] VITALS: BP 139/67
[2025-08-02] MEDS: LOTRIMIN 1% CREAM 1 APPLIC TOPICAL (20:52)
[2025-08-02 22:18] LABS: Glucose - Point of Care 214 mg/dl (70-99)
[2025-08-02] MEDS: ROXICODONE 5 MG PO (23:01)
[2025-08-02 23:17] VITALS: BP 135/64
[2025-08-03] VITALS (8 sets, daily range): BP systolic 124–137; BP diastolic 67–88; PULSE 76; O2SAT 99; BMI 28.2
[2025-08-03] MEDS: ZOSYN 50 IV ×4 (05:02→22:01)
[2025-08-03] MEDS: SYNTHROID 75 MCG PO (06:07)
[2025-08-03] MEDS: FIRVANQ 125 MG PO ×3 (06:07→17:05)
[2025-08-03 07:47] LABS: Glucose - Point of Care 109 mg/dl (70-99)
[2025-08-03] MEDS: NOVOLOG FLEXPEN-LOW RESISTANCE SC ×2 (08:04→17:06)
[2025-08-03] MEDS: VISBIOME 1 CAP PO (08:32)
[2025-08-03] MEDS: ELIQUIS 5 MG PO ×2 (08:32→19:51)
[2025-08-03] MEDS: PROTONIX 40 MG PO (08:32)
[2025-08-03] MEDS: CRESTOR 20 MG PO (08:32)
[2025-08-03] MEDS: ROXICODONE 5 MG PO ×3 (08:32→22:00)
[2025-08-03] MEDS: PLAVIX 75 MG PO (08:32)
[2025-08-03] MEDS: TOPROL XL 25 MG PO ×2 (08:33→19:51)
[2025-08-03] MEDS: LASIX 80 MG PO (08:33)
[2025-08-03] MEDS: SOLU-CORTEF 25 MG IV (08:35)
[2025-08-03] MEDS: LOTRIMIN 1% CREAM 1 APPLIC TOPICAL ×2 (08:37→20:06)
--- NOTE | 2025-08-03 08:57 | W.PN.HOSP.TC ---
Today's Communication/Plan
-
f/w surgery and ID recommendations
Blood work in am
Assessment / Plan
Assessment / Plan
Physical Exam
General: No acute distress,
HEENT: Normocephalic, Atraumatic, EOMI, MMM
Respiratory: Clear to Auscultation bilaterally
Cardiac: Normal S1/S2, RRR
GI: Soft, not distended, denies tenderness. Incisions clean/dry/intact
Extremities: No Clubbing, Cyanosis
Improving LE edema noted
Neuro: AAOX3, followed commands. Non focal.
Psych : calm
HPI: 69y F with PMH significant for s/p BioAVR, post-op CVA and subsequent hospitalization for CHF who presents to ED complaining of N/V/D since last PM.
Assessment/plan:
#Sepsis POA, resolved.
- Lactic acidosis resolved.
- Stool studies positive for C. difficile antigen, negative for toxin
- Appreciate ID input, Zosyn completed on 07/26, Zosyn resumed on 07/29
- Continue oral vancomycin as per ID
#Severe acute small bowel ischemia secondary to complete occlusion of the SMA artery with severe underlying PAD
- Appreciate vascular surgery input, s/p emergent intravascular lithotripsy to SMA + balloon angioplasty and stenting of proximal SMA 07/16
- Was on carb controlled diet status post TPN, but had abd pain 07/29
- 07/29 CT abd/pel with persistent terminal ileitis but improving and over a shorter segment than previous imaging
- Appreciate general surgery input, recommend full liquid diet with protein supplements twice daily, with eventual transition to simple dietary foods (low fat, low fiber, simple carbs and proteins) but not yet ready
- Start Bentyl & gas X prn, continue Eliquis and Plavix
#Change in mental status on 07/21, resolved
#Adrenal insufficiency
#Hyponatremia
After ruling out hemodynamic instability, code stroke was called. Stroke was ruled out by examination and imaging studies
Toxic metabolic encephalopathy secondary to combination of adrenal insufficiency, metabolic imbalance and Dilaudid use
Oral hydrocortisone changed back to IV Solu-Cortef 25 mg daily
PMH: Panhypopituitarism/ Adrenal Insufficiency
#Hemorrhagic shock
- Resolved
#Acute urinary retention
Resolved.
#Episode of SVT
Seen by cardiology, who recommends continuing her beta-keanu, they have signed off
# Worsening anemia, due to sepsis, acute blood loss, and anemia of chronic disease
- Appreciate hematology input, due to sepsis, acute blood loss, mild hemolysis, and anemia of chronic disease
- Status post 4 units packed red blood cells, 2 units of FFP on 07/16
- Monitor hemoglobin, transfuse as needed
#Hypomagnesemia
#Hypokalemia
#Hypophosphatemia
Replete as needed
#Coffee-ground emesis, resolved, tolerating oral intake.
- Started on Protonix 40 mg IV twice daily, change to oral QD.
#Paroxysmal Atrial Fibrillation with rapid ventricular response
Controlled, c/w BB, Eliquis.
Aortic Stenosis s/p BioAVR
Mild acute on Chronic HFpEF
- Hold Farxiga
- Resolved status post Lasix 80 mg IV twice daily, continue oral Lasix 80 mg p.o. daily
S/p CVA
- CVA POD #1 after AVR. Transferred to [place] for TCAR.
- No new neurologic deficits.
- Continue Plavix
PANTERA
- Likely due to dehydration +/- Bactrim use / med effect
Resolved
Prolonged QTc
Mild
- Continue Tigan IM as needed
Hypothyroidism
- Continue current T4 replacement
DM-II
-Continue sliding scale insulin
Frequent UTIs
DVT Prophylaxis: Eliquis
Code Status: Full
Dispo - PT rec SNF - [facility]
Total time spent to see the patient on the floor, examine the patient, review data and lab results, discuss treatment plan with patient, nursing staff around 51 minutes.
Anticipated Discharge: 24 - 48 hours
Subjective/Interval History
-
Date of Service: August 03, 2025
She denies abdominal pain or nausea after eating
Objective Data
-
Vital Signs:
Vital Signs
Temp Pulse Resp BP Pulse Ox
98.1 F 70 17 137/70 96
08/03/25 07:48 08/03/25 08:33 08/03/25 07:48 08/03/25 08:33 08/03/25 07:48
I&O
08/02/25 08/03/25 08/04/25
06:59 06:59 06:59
Intake Total 2260 / 2260 2880 / 2880
Balance 2260 / 2260 2880 / 2880
[2025-08-03 11:37] LABS: Glucose - Point of Care 234 mg/dl (70-99)
--- NOTE | 2025-08-03 11:47 | CM ---
Reviewed the chart notes and spoke with the patient and her spouse at the bedside. Patient tolerating low residue diet. Patient continues with wish for SNF/rehab prior to transitioning home. CM continues to be available to patient/family and is
monitoring medical plan for needs at discharge.
Plan: Discharge to SNF/rehab once medically stable, bed secured, and auth obtained.
[2025-08-03] MEDS: NOVOLOG FLEXPEN-LOW RESISTANCE 2 UNITS SC (12:13)
--- NOTE | 2025-08-03 12:59 | W.PN.ID1 ---
Date of Service
Date of Service: August 03, 2025
Today's Communication
Continue Zosyn for today.
Assessment / Plan
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
- s/p intravascular lithotripsy to SMA calcified stenosis/occlusion (07/16/2025)
A-fib with RVR.
GI bleed
Leukocytosis
Terminal ileitis
C. difficile antigen (+) / toxin (-) (07/12/25)
Diarrhea -improved
Hemorrhoids
Aortic Stenosis
Hypertension
HFpEF
Paroxysmal Atrial Fibrillation
DM-II
Panhypopituitarism (Rathke's Cleft Cyst)
Hypothyroidism
Adrenal Insufficiency
Recurrent UTIs
Diverticular Disease
Recommendations:
Continue Zosyn (d#6). Abx resumed 07/29 due to leukocytosis and CT a/p persistent ileitis.
Continue enteral vancomycin for 5-7 days following completion of systemic antibiotics.
Continue with supportive measures.
Follow white count and temperature curve
����������������������������������������������������������
Chief Complaint
-: Leukocytosis, Clinical Sepsis and C-diff (colonization)
Subjective / Review of Systems
Patient seen and examined. Notes some soft stool, but no diarrhea. Notes current issues with painful hemorrhoids.
Review of Systems: No Fever and No Chills
Vital Signs / Physical Exam
Vital Signs
Vital Signs
Temp Pulse Resp BP Pulse Ox
98.4 F 80 16 134/88 97
08/03/25 11:39 08/03/25 11:39 08/03/25 11:39 08/03/25 11:39 08/03/25 11:39
Physical Exam
Constitutional: No Acute Distress
Cardiovascular: Regular Rate and S1/S2
Pulmonary: Clear
Gastrointestinal: Soft, Non Tender, Non Distended, Decreased Bowel Sounds, No Rebound and No Guarding
Genito-Urinary: Negative CVA Tenderness
Neurological: AO x 3
Objective Data
Lab Data
Lab Results
08/02/25 04:26
08/02/25 04:26
PT Cancelled 07/21/25 14:11
INR Cancelled 07/21/25 14:11
APTT Cancelled 07/24/25 07:40
Estimated Creat Clear 86 ml/min 08/02/25 04:26
Lactic Acid 0.8 mmol/L (0.7-2.0) 07/22/25 08:29
Total Bilirubin 0.3 mg/dl (0.2-1.3) 07/26/25 05:02
AST 18 U/L (14-36) 07/26/25 05:02
ALT 14 U/L (0-35) 07/26/25 05:02
Alkaline Phosphatase 47 U/L (38-126) 07/26/25 05:02
Most recent labs reviewed.
Micro Results:
07/12/25 17:06 Blood Culture - Final
Blood/Venous No Growth - Final Report
07/11/25 19:37 Blood Culture - Final
Blood/Venous No Growth - Final Report
07/11/25 19:37 Blood Culture - Final
Blood/Venous No Growth - Final Report
07/12/25 11:37 Salmonella/Shigella Culture - Final
Feces/Stool No Salmonella, Shigella, Aeromonas or Plesiomonas species
isolated.
Campylobacter Culture - Final
No Campylobacter species isolated.
- Final
NO YERSINIA SPECIES ISOLATED
Shiga Toxin Test - Final
No E. coli Shiga Toxin 1 or 2 detected.
Stool Leukocytes - Final
07/12/25 11:37 Cryptosporidium/Giardia - Final
Feces/Stool Negative for Cryptosporidium and/or Giardia Lamblia
antigens.
C. difficile GDH Antigen & Toxins - Final
C. difficile antigen positive, toxin negative.
Clostridium difficile present, but toxin not detected.
Patient may be a carrier, colonized with nontoxinogenic
strain or the level of toxin in sample is below detection
limits. This information should be used in conjunction with
the patient's clinical history.
- Final
Negative for Norovirus GI and GII.
Imaging:
07/29/25: Persistent terminal ileitis with a similar degree of wall thickening but some improved inflammatory fat stranding compared to the CT abdomen/pelvis from 07/20/2025. Improvement of the previously seen small bowel obstruction. Some small bowel
loops remain borderline dilated and contrast material has not yet passed into the ileum or colon. Follow-up abdominal radiographs could be performed to assess for further contrast passage.
07/16/2025 CT abdomen/pelvis angio: severe acute small bowel ischemia with pneumatosis is noted. Moderate mesenteric edema, and small volume ascites noted. There is complete occlusion of the superior mesenteric artery. Severe calcific
atherosclerotic plaque in the abdominal aorta and iliac arteries. Moderate diverticulosis in the descending colon. Please see full dictation for additional detail.
07/11/2025 CT abdomen/pelvis without contrast: evaluation is limited without intravenous or oral contrast. No gross focal intrinsic abnormality of the unopacified liver, spleen, pancreas, kidneys or adrenal glands. No significant perinephric
stranding. Small gallstones are seen within a borderline prominent gallbladder. No biliary tract dilatation. Evaluation of the intestinal tract is markedly limited, but no intestinal obstruction or free air is noted. Please see full dictation
for additional detail.
--- NOTE | 2025-08-03 13:14 | W.PN.GS2 ---
Today's Communication / Plan
-
-- LRD, protein supplements BID
-- ABX as per ID
-- Witch kodak and sitz baths for hemorrhoids
Assessment / Plan
-
Patient is a 69 yo F p/w acute mesenteric ischemia
POD #17 status post diagnostic laparoscopy with bowel edema, but no advanced/irreversible ischemia
POD #17 status post angiogram, angioplasty and SMA stent placement
Afebrile
No repeat labs today
H&H stable on Plavix daily/Eliquis 5mg BID
CT on 07/29/25 with persistent terminal ileitis but improving and over a shorter segment than previous imaging.
Zosyn resumed on 07/29. Started on Oral Vanc for C-diff antigen +/toxin -
Improvement in GI symptoms since starting oral Vanc, better appetite today
No changes from a surgical perspective. Medical management for hemorrhoids.
Plan:
-- LRD, protein supplements BID
-- ABX as per ID
-- Witch kodak and sitz baths for hemorrhoids
-- Medical management as per primary
Subjective Data
-
Date of Service: August 03, 2025
Denies any abdominal pain. No nausea or vomiting. Loose stools improving. Issues with perianal itching related to known hemorrhoids. No fevers.
Objective Data
-
Intake and Output
08/02/25 08/03/25 08/04/25
06:59 06:59 06:59
Intake Total 2259 / 0 2880 / 2880
Balance 2259 / 0 2880 / 2880
Intake:
Oral fluids 2259 / 2259 2880 / 2880
Other:
Number of approximated MODERATE 3 3
amounts of urine
Number of approximated LARGE 2 3
amounts of urine
Number of unmeasured liquid
stools
Rectum 4 1
Vital Signs
Temp Pulse Resp BP Pulse Ox
98.4 F 80 16 134/88 97
08/03/25 11:39 08/03/25 11:39 08/03/25 11:39 08/03/25 11:39 08/03/25 11:39
Lab Results
08/02/25 04:26
08/02/25 04:26
Calcium 8.1 mg/dl (8.4-10.2) L 08/02/25 04:26
Phosphorus 3.4 mg/dl (2.5-4.5) 08/02/25 04:26
Magnesium 1.9 mg/dl (1.6-2.3) 08/02/25 04:26
Total Bilirubin 0.3 mg/dl (0.2-1.3) 07/26/25 05:02
Direct Bilirubin 0.7 mg/dl (0.0-0.4) H 07/16/25 15:10
AST 18 U/L (14-36) 07/26/25 05:02
ALT 14 U/L (0-35) 07/26/25 05:02
Alkaline Phosphatase 47 U/L (38-126) 07/26/25 05:02
Total Protein 4.8 g/dl (6.3-8.2) L 07/26/25 05:02
Albumin 2.5 g/dl (3.5-5.0) L 07/26/25 05:02
Physical Exam
-
Gen: NAD
Abd: soft, NT/ND, non-peritoneal, incisions c/d/i - no erythema, ecchymosis or drainafe
Patient has a tidwell catheter: No
Patient has a central line: No
[2025-08-03 17:08] LABS: Glucose - Point of Care 107 mg/dl (70-99)
[2025-08-03 21:19] LABS: Glucose - Point of Care 206 mg/dl (70-99)
[2025-08-04] MEDS: FIRVANQ 125 MG PO ×4 (00:52→17:50)
[2025-08-04 03:07] VITALS: BP 121/77
[2025-08-04] MEDS: SYNTHROID 75 MCG PO (05:05)
[2025-08-04] MEDS: ZOSYN 50 IV ×4 (05:05→21:01)
[2025-08-04 05:48] VITALS: BMI 27.9
[2025-08-04 06:30] LABS: Hematocrit 27.8 % (37.0-47.0); Hemoglobin 9.2 g/dL (12.0-16.0); Mean Corp Hgb Conc. 33.1 g/dL (33.0-37.0); Mean Corpuscular Volume 93.9 fL (81.0-99.0); Platelet Count 369 10^3/uL (130-400); Red Cell Dist. Width 19.5 % (11.5-14.5)
[2025-08-04 06:55] LABS: Blood Urea Nitrogen 5 mg/dl (7-17); Calcium 8.0 mg/dl (8.4-10.2); Carbon Dioxide 29 mmol/L (22-30); Chloride 100 mmol/L (98-107); Estimated Creatinine Clearance 85 ml/min; Glucose 98 mg/dl (70-99); Potassium 2.8 mmol/L (3.5-5.1); Sodium 134 mmol/L (135-145); eGFR > 60.00
[2025-08-04 08:01] VITALS: BP 133/75
[2025-08-04 08:06] LABS: Glucose - Point of Care 105 mg/dl (70-99)
[2025-08-04] MEDS: NOVOLOG FLEXPEN-LOW RESISTANCE SC ×2 (08:29→17:50)
[2025-08-04] MEDS: KCL 270 MEQ IV (08:29)
[2025-08-04] MEDS: CRESTOR 20 MG PO (08:30)
[2025-08-04] MEDS: VISBIOME 1 CAP PO (08:30)
[2025-08-04] MEDS: TOPROL XL 25 MG PO ×2 (08:30→21:01)
[2025-08-04] MEDS: KLOR-CON 40 MEQ PO ×2 (08:33→21:02)
[2025-08-04] MEDS: PROTONIX 40 MG PO (08:34)
[2025-08-04] MEDS: ELIQUIS 5 MG PO ×2 (08:34→21:01)
[2025-08-04] MEDS: PLAVIX 75 MG PO (08:34)
[2025-08-04] MEDS: LASIX 80 MG PO (08:34)
[2025-08-04] MEDS: SOLU-CORTEF 25 MG IV (08:35)
[2025-08-04] MEDS: LOTRIMIN 1% CREAM 1 APPLIC TOPICAL ×2 (08:41→21:02)
[2025-08-04] MEDS: TYLENOL 650 MG PO (08:45)
--- NOTE | 2025-08-04 09:30 | W.PN.HOSP.TC ---
Today's Communication/Plan
-
Loose stool/ diarrhea
#Hypokalemia
replace oral & IV
Assessment / Plan
Assessment / Plan
Physical Exam
General: No acute distress,
HEENT: Normocephalic, Atraumatic, EOMI, MMM
Respiratory: Clear to Auscultation bilaterally
Cardiac: Normal S1/S2, RRR
GI: Soft, not distended, denies tenderness. Incisions clean/dry/intact
Extremities: No Clubbing, Cyanosis
Improving LE edema noted
Neuro: AAOX3, followed commands. Non focal.
Psych : calm
HPI: 69y F with PMH significant for s/p BioAVR, post-op CVA and subsequent hospitalization for CHF who presents to ED complaining of N/V/D since last PM.
Assessment/plan:
#Sepsis POA, resolved.
- Lactic acidosis resolved.
- Stool studies positive for C. difficile antigen, negative for toxin
- Appreciate ID input, Zosyn completed on 07/26, Zosyn resumed on 07/29
- Continue oral vancomycin as per ID
#Severe acute small bowel ischemia secondary to complete occlusion of the SMA artery with severe underlying PAD
- Appreciate vascular surgery input, s/p emergent intravascular lithotripsy to SMA + balloon angioplasty and stenting of proximal SMA 07/16
- Was on carb controlled diet status post TPN, but had abd pain 07/29
- 07/29 CT abd/pel with persistent terminal ileitis but improving and over a shorter segment than previous imaging
- Appreciate general surgery input, recommend full liquid diet with protein supplements twice daily, with eventual transition to simple dietary foods (low fat, low fiber, simple carbs and proteins) but not yet ready
- Started Bentyl & gas X prn, continue Eliquis and Plavix
#Change in mental status on 07/21, resolved
#Adrenal insufficiency
#Hyponatremia
After ruling out hemodynamic instability, code stroke was called. Stroke was ruled out by examination and imaging studies
Toxic metabolic encephalopathy secondary to combination of adrenal insufficiency, metabolic imbalance and Dilaudid use
Oral hydrocortisone changed back to IV Solu-Cortef 25 mg daily
PMH: Panhypopituitarism/ Adrenal Insufficiency
#Hemorrhagic shock
- Resolved
#Acute urinary retention
Resolved.
#Episode of SVT
Seen by cardiology, who recommends continuing her beta-keanu, they have signed off
# Worsening anemia, due to sepsis, acute blood loss, and anemia of chronic disease
- Appreciate hematology input, due to sepsis, acute blood loss, mild hemolysis, and anemia of chronic disease
- Status post 4 units packed red blood cells, 2 units of FFP on 07/16
- Monitor hemoglobin, transfuse as needed
#Hypomagnesemia
#Hypokalemia
replace oral & IV
#Hypophosphatemia
Replete as needed
#Coffee-ground emesis, resolved, tolerating oral intake.
- Started on Protonix 40 mg IV twice daily, changed to oral QD.
#Paroxysmal Atrial Fibrillation with rapid ventricular response
Controlled, c/w BB, Eliquis.
Aortic Stenosis s/p BioAVR
Mild acute on Chronic HFpEF
- Hold Farxiga
- Resolved status post Lasix 80 mg IV twice daily, continue oral Lasix 80 mg p.o. daily
S/p CVA
- CVA POD #1 after AVR. Transferred to [place] for TCAR.
- No new neurologic deficits.
- Continue Plavix
PANTERA
- Likely due to dehydration +/- Bactrim use / med effect
Resolved
Prolonged QTc
Mild
- Continue Tigan IM as needed
Hypothyroidism
- Continue current T4 replacement
DM-II
-Continue sliding scale insulin
Frequent UTIs
DVT Prophylaxis: Eliquis
Code Status: Full
Dispo - PT rec SNF - [facility]
Total time spent to see the patient on the floor, examine the patient, review data and lab results, discuss treatment plan with patient, nursing staff around 51 minutes.
Anticipated Discharge: 24 - 48 hours
Subjective/Interval History
-
Date of Service: August 04, 2025
Reports loose stools
No abdominal pain
Objective Data
-
Labs:
Laboratory Results
08/04/25
05:50
WBC 14.4 H
Hgb 9.2 L
Hct 27.8 L
Plt Count 369
Sodium 134 L
Potassium 2.8 L
Chloride 100
Carbon Dioxide 29
BUN 5 L
Creatinine 0.6
Glucose 98
Calcium 8.0 L
Vital Signs:
Vital Signs
Temp Pulse Resp BP Pulse Ox
98.1 F 81 18 133/75 99
08/04/25 08:01 08/04/25 08:34 08/04/25 08:01 08/04/25 08:34 08/04/25 08:01
I&O
08/03/25 08/04/25 08/05/25
06:59 06:59 06:59
Intake Total 2880 / 2880 2150 / 2150
Balance 2880 / 2880 2150 / 2150
--- NOTE | 2025-08-04 11:12 | W.PN.GS2 ---
Today's Communication / Plan
-
CTA
Assessment / Plan
-
Patient is a 69 yo F p/w acute mesenteric ischemia
POD #18 status post diagnostic laparoscopy with bowel edema, but no advanced/irreversible ischemia
POD #18 status post angiogram, angioplasty and SMA stent placement
Afebrile
WBC trending up
H&H stable on Plavix daily/Eliquis 5mg BID
CT on 07/29/25 with persistent terminal ileitis but improving and over a shorter segment than previous imaging.
Zosyn resumed on 07/29. Started on Oral Vanc for C-diff antigen +/toxin -
Improvement in GI symptoms since starting oral Vanc, but now rising WBC and feeling worse
Plan:
-- CTA A/P
-- LRD, protein supplements BID
-- ABX as per ID
-- Witch kodak and sitz baths for hemorrhoids
-- Medical management as per primary
Subjective Data
-
Date of Service: August 04, 2025
Feels worse today, pain not worse, just overall malaise, feels 'yucky,' tolerating ensure x2 but no solid food
Objective Data
-
Intake and Output
08/03/25 08/04/25 08/05/25
06:59 06:59 06:59
Intake Total 2880 / 2880 2149
Balance 2880 / 2880 2149
Intake:
Oral fluids 2880 / 2880 2099 / 2099
IV piggybacks 50 / 50
Other:
How many times incontinent 4
MODERATE amount urine
Number of approximated MODERATE 3
amounts of urine
Number of approximated LARGE 3 5
amounts of urine
Number of unmeasured liquid
stools
Rectum 1
Vital Signs
Temp Pulse Resp BP Pulse Ox
98.1 F 81 18 133/75 99
08/04/25 08:01 08/04/25 08:34 08/04/25 08:01 08/04/25 08:34 08/04/25 08:01
Lab Results
08/04/25 05:50
08/04/25 05:50
Calcium 8.0 mg/dl (8.4-10.2) L 08/04/25 05:50
Phosphorus 3.4 mg/dl (2.5-4.5) 08/02/25 04:26
Magnesium 1.9 mg/dl (1.6-2.3) 08/02/25 04:26
Total Bilirubin 0.3 mg/dl (0.2-1.3) 07/26/25 05:02
Direct Bilirubin 0.7 mg/dl (0.0-0.4) H 07/16/25 15:10
AST 18 U/L (14-36) 07/26/25 05:02
ALT 14 U/L (0-35) 07/26/25 05:02
Alkaline Phosphatase 47 U/L (38-126) 07/26/25 05:02
Total Protein 4.8 g/dl (6.3-8.2) L 07/26/25 05:02
Albumin 2.5 g/dl (3.5-5.0) L 07/26/25 05:02
Physical Exam
-
Gen: NAD, nontoxic
Abd: soft, no notable ttp
Patient has a tidwell catheter: No
Patient has a central line: No
[2025-08-04 11:17] VITALS: BP 116/91
[2025-08-04 11:21] LABS: Glucose - Point of Care 208 mg/dl (70-99)
--- NOTE | 2025-08-04 11:31 | W.PN.ID1 ---
Date of Service
Date of Service: August 04, 2025
Today's Communication
Continue antibiotics. Patient for CTA A/P
Assessment / Plan
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
- s/p intravascular lithotripsy to SMA calcified stenosis/occlusion (07/16/2025)
A-fib with RVR.
GI bleed
Leukocytosis
Terminal ileitis
C. difficile antigen (+) / toxin (-) (07/12/25)
Diarrhea -improved
Hemorrhoids
Aortic Stenosis
Hypertension
HFpEF
Paroxysmal Atrial Fibrillation
DM-II
Panhypopituitarism (Rathke's Cleft Cyst)
Hypothyroidism
Adrenal Insufficiency
Recurrent UTIs
Diverticular Disease
Recommendations:
Continue Zosyn (d#7). Abx resumed 07/29 due to leukocytosis and CT a/p persistent ileitis.
Continue enteral vancomycin for 5-7 days following completion of systemic antibiotics.
Continue with supportive measures.
Follow white count and temperature curve
����������������������������������������������������������
Chief Complaint
-: Leukocytosis, Clinical Sepsis and C-diff (colonization)
Subjective / Review of Systems
Patient seen and examined. Reports feels 'blah' today. No significant abdominal pain, but some discomfort.
Review of Systems: No Fever and No Chills
Vital Signs / Physical Exam
Vital Signs
Vital Signs
Temp Pulse Resp BP Pulse Ox
98.3 F 76 18 116/91 98
08/04/25 11:17 08/04/25 11:17 08/04/25 11:17 08/04/25 11:17 08/04/25 11:17
Physical Exam
Constitutional: No Acute Distress
Cardiovascular: Regular Rate and S1/S2
Pulmonary: Clear and Non Labored
Gastrointestinal: Soft, Non Tender, Non Distended, No Rebound and No Guarding
Genito-Urinary: CVA Tenderness
Skin: Negative Rash or Jaundice
Neurological: AO x 3
Psychological: Calm
Objective Data
Lab Data
Lab Results
08/04/25 05:50
08/04/25 05:50
PT Cancelled 07/21/25 14:11
INR Cancelled 07/21/25 14:11
APTT Cancelled 07/24/25 07:40
Estimated Creat Clear 85 ml/min 08/04/25 05:50
Lactic Acid 0.8 mmol/L (0.7-2.0) 07/22/25 08:29
Total Bilirubin 0.3 mg/dl (0.2-1.3) 07/26/25 05:02
AST 18 U/L (14-36) 07/26/25 05:02
ALT 14 U/L (0-35) 07/26/25 05:02
Alkaline Phosphatase 47 U/L (38-126) 07/26/25 05:02
Most recent labs reviewed.
Micro Results:
07/12/25 17:06 Blood Culture - Final
Blood/Venous No Growth - Final Report
07/11/25 19:37 Blood Culture - Final
Blood/Venous No Growth - Final Report
07/11/25 19:37 Blood Culture - Final
Blood/Venous No Growth - Final Report
07/12/25 11:37 Salmonella/Shigella Culture - Final
Feces/Stool No Salmonella, Shigella, Aeromonas or Plesiomonas species
isolated.
Campylobacter Culture - Final
No Campylobacter species isolated.
- Final
NO YERSINIA SPECIES ISOLATED
Shiga Toxin Test - Final
No E. coli Shiga Toxin 1 or 2 detected.
Stool Leukocytes - Final
07/12/25 11:37 Cryptosporidium/Giardia - Final
Feces/Stool Negative for Cryptosporidium and/or Giardia Lamblia
antigens.
C. difficile GDH Antigen & Toxins - Final
C. difficile antigen positive, toxin negative.
Clostridium difficile present, but toxin not detected.
Patient may be a carrier, colonized with nontoxinogenic
strain or the level of toxin in sample is below detection
limits. This information should be used in conjunction with
the patient's clinical history.
- Final
Negative for Norovirus GI and GII.
Imaging:
07/29/25 CT abdomen/pelvis: Persistent terminal ileitis with a similar degree of wall thickening but some improved inflammatory fat stranding compared to the CT abdomen/pelvis from 07/20/2025. Improvement of the previously seen small bowel
obstruction. Some small bowel loops remain borderline dilated and contrast material has not yet passed into the ileum or colon. Follow-up abdominal radiographs could be performed to assess for further contrast passage.
07/16/2025 CT abdomen/pelvis angio: severe acute small bowel ischemia with pneumatosis is noted. Moderate mesenteric edema, and small volume ascites noted. There is complete occlusion of the superior mesenteric artery. Severe calcific
atherosclerotic plaque in the abdominal aorta and iliac arteries. Moderate diverticulosis in the descending colon. Please see full dictation for additional detail.
07/11/2025 CT abdomen/pelvis without contrast: evaluation is limited without intravenous or oral contrast. No gross focal intrinsic abnormality of the unopacified liver, spleen, pancreas, kidneys or adrenal glands. No significant perinephric
stranding. Small gallstones are seen within a borderline prominent gallbladder. No biliary tract dilatation. Evaluation of the intestinal tract is markedly limited, but no intestinal obstruction or free air is noted. Please see full dictation
for additional detail.
[2025-08-04] MEDS: NOVOLOG FLEXPEN-LOW RESISTANCE 2 UNITS SC (12:12)
[2025-08-04] MEDS: MYLICON 80 MG PO (12:16)
[2025-08-04] MEDS: BENTYL 20 MG PO (12:17)
[2025-08-04] MEDS: NSS 1000 IV (13:32)
--- NOTE | 2025-08-04 14:17 | CM ---
Reviewed the chart notes and spoke with the patient and her spouse at the bedside. Patient now agreeable to outpatient rehab (cardiac). Patient had not completed her course of cardiac rehab. CM continues to be available to patient/family and is
monitoring medical plan for needs at discharge.
Plan: Discharge to home when medically stable. Patient to re-establish her cardiac rehab.
[2025-08-04 15:23] VITALS: BP 124/69
[2025-08-04 17:18] LABS: Glucose - Point of Care 121 mg/dl (70-99)
[2025-08-04 19:19] VITALS: BP 154/76
[2025-08-04] MEDS: ROXICODONE 5 MG PO (21:05)
[2025-08-04 21:25] LABS: Glucose - Point of Care 191 mg/dl (70-99)
[2025-08-04 23:28] VITALS: BP 110/58
[2025-08-05] MEDS: FIRVANQ 125 MG PO ×3 (00:25→12:46)
[2025-08-05] MEDS: NSS 1000 IV (01:56)
[2025-08-05 03:27] VITALS: BP 122/66
[2025-08-05] MEDS: ZOSYN 50 IV (04:58)
[2025-08-05] MEDS: SYNTHROID 75 MCG PO (04:59)
[2025-08-05 06:00] VITALS: BMI 28.6
[2025-08-05 06:53] LABS: Hematocrit 27.7 % (37.0-47.0); Hemoglobin 8.7 g/dL (12.0-16.0); Mean Corp Hgb Conc. 31.4 g/dL (33.0-37.0); Mean Corpuscular Volume 97.2 fL (81.0-99.0); Platelet Count 358 10^3/uL (130-400); Red Cell Dist. Width 20.3 % (11.5-14.5)
[2025-08-05 07:18] LABS: Blood Urea Nitrogen 3 mg/dl (7-17); Calcium 8.3 mg/dl (8.4-10.2); Carbon Dioxide 28 mmol/L (22-30); Chloride 104 mmol/L (98-107); Estimated Creatinine Clearance 86 ml/min; Glucose 81 mg/dl (70-99); Potassium 3.6 mmol/L (3.5-5.1); Sodium 136 mmol/L (135-145); eGFR > 60.00
[2025-08-05 07:30] VITALS: BP 118/76
[2025-08-05 08:32] LABS: Glucose - Point of Care 95 mg/dl (70-99)
[2025-08-05] MEDS: NOVOLOG FLEXPEN-LOW RESISTANCE SC (08:44)
--- NOTE | 2025-08-05 09:14 | W.PN.ID1 ---
Date of Service
Date of Service: August 05, 2025
Today's Communication
Discontinue further Zosyn. Continue with enteral vancomycin; see below�
Assessment / Plan
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
- s/p intravascular lithotripsy to SMA calcified stenosis/occlusion (07/16/2025)
A-fib with RVR.
GI bleed
Leukocytosis
Terminal ileitis
C. difficile antigen (+) / toxin (-) (07/12/25)
Diarrhea -improved
Hemorrhoids
Aortic Stenosis
Hypertension
HFpEF
Paroxysmal Atrial Fibrillation
DM-II
Panhypopituitarism (Rathke's Cleft Cyst)
Hypothyroidism
Adrenal Insufficiency
Recurrent UTIs
Diverticular Disease
Recommendations:
Discontinue further Zosyn.
Continue enteral vancomycin (d#22) for an additional 7 days.
Continue with supportive measures.
����������������������������������������������������������
Chief Complaint
-: Leukocytosis, Clinical Sepsis and C-diff (colonization)
Subjective / Review of Systems
Review of Systems: No Abdominal Pain and No Diarrhea
Vital Signs / Physical Exam
Vital Signs
Vital Signs
Temp Pulse Resp BP Pulse Ox
99.2 F 88 18 118/76 99
08/05/25 07:30 08/05/25 07:30 08/05/25 07:30 08/05/25 07:30 08/05/25 07:30
Physical Exam
Constitutional: No Acute Distress
Cardiovascular: Regular Rate and S1/S2
Pulmonary: Clear and Non Labored
Gastrointestinal: Soft, Non Tender, Non Distended, No Rebound and No Guarding
Genito-Urinary: CVA Tenderness
Skin: Negative Rash or Jaundice
Neurological: AO x 3
Psychological: Calm
Objective Data
Lab Data
Lab Results
08/05/25 06:24
08/05/25 06:24
PT Cancelled 07/21/25 14:11
INR Cancelled 07/21/25 14:11
APTT Cancelled 07/24/25 07:40
Estimated Creat Clear 86 ml/min 08/05/25 06:24
Lactic Acid 0.8 mmol/L (0.7-2.0) 07/22/25 08:29
Total Bilirubin 0.3 mg/dl (0.2-1.3) 07/26/25 05:02
AST 18 U/L (14-36) 07/26/25 05:02
ALT 14 U/L (0-35) 07/26/25 05:02
Alkaline Phosphatase 47 U/L (38-126) 07/26/25 05:02
Most recent labs reviewed.
Micro Results:
07/12/25 17:06 Blood Culture - Final
Blood/Venous No Growth - Final Report
07/11/25 19:37 Blood Culture - Final
Blood/Venous No Growth - Final Report
07/11/25 19:37 Blood Culture - Final
Blood/Venous No Growth - Final Report
07/12/25 11:37 Salmonella/Shigella Culture - Final
Feces/Stool No Salmonella, Shigella, Aeromonas or Plesiomonas species
isolated.
Campylobacter Culture - Final
No Campylobacter species isolated.
- Final
NO YERSINIA SPECIES ISOLATED
Shiga Toxin Test - Final
No E. coli Shiga Toxin 1 or 2 detected.
Stool Leukocytes - Final
07/12/25 11:37 Cryptosporidium/Giardia - Final
Feces/Stool Negative for Cryptosporidium and/or Giardia Lamblia
antigens.
C. difficile GDH Antigen & Toxins - Final
C. difficile antigen positive, toxin negative.
Clostridium difficile present, but toxin not detected.
Patient may be a carrier, colonized with nontoxinogenic
strain or the level of toxin in sample is below detection
limits. This information should be used in conjunction with
the patient's clinical history.
- Final
Negative for Norovirus GI and GII.
Imaging:
08/04/2025 CT abdomen/pelvis angio: SMA stent is present, with contrast opacification of the SMA just past the distal tip of the stent. Wall thickening and enhancement involving the distal ileum compatible with distal ileitis but appears slightly
improved compared to examination from 07/29/2025. No significant colonic wall thickening. No evidence for bowel obstruction. Please see full dictation for additional detail.
07/29/25 CT abdomen/pelvis: Persistent terminal ileitis with a similar degree of wall thickening but some improved inflammatory fat stranding compared to the CT abdomen/pelvis from 07/20/2025. Improvement of the previously seen small bowel
obstruction. Some small bowel loops remain borderline dilated and contrast material has not yet passed into the ileum or colon. Follow-up abdominal radiographs could be performed to assess for further contrast passage.
07/16/2025 CT abdomen/pelvis angio: severe acute small bowel ischemia with pneumatosis is noted. Moderate mesenteric edema, and small volume ascites noted. There is complete occlusion of the superior mesenteric artery. Severe calcific
atherosclerotic plaque in the abdominal aorta and iliac arteries. Moderate diverticulosis in the descending colon. Please see full dictation for additional detail.
07/11/2025 CT abdomen/pelvis without contrast: evaluation is limited without intravenous or oral contrast. No gross focal intrinsic abnormality of the unopacified liver, spleen, pancreas, kidneys or adrenal glands. No significant perinephric
stranding. Small gallstones are seen within a borderline prominent gallbladder. No biliary tract dilatation. Evaluation of the intestinal tract is markedly limited, but no intestinal obstruction or free air is noted. Please see full dictation
for additional detail.
Care Review
Plan reviewed with: Physician (Hospitalist; General Surgery)
[2025-08-05] MEDS: LOTRIMIN 1% CREAM 1 APPLIC TOPICAL (09:36)
[2025-08-05] MEDS: KLOR-CON 40 MEQ PO (09:39)
[2025-08-05] MEDS: PROTONIX 40 MG PO (09:39)
[2025-08-05] MEDS: CRESTOR 20 MG PO (09:40)
[2025-08-05] MEDS: TOPROL XL 25 MG PO (09:40)
[2025-08-05] MEDS: LASIX 80 MG PO (09:40)
[2025-08-05] MEDS: VISBIOME 1 CAP PO (09:40)
[2025-08-05] MEDS: PLAVIX 75 MG PO (09:40)
[2025-08-05] MEDS: ELIQUIS 5 MG PO (09:40)
[2025-08-05] MEDS: SOLU-CORTEF 25 MG IV (09:41)
--- NOTE | 2025-08-05 09:43 | W.PN.GS2 ---
Today's Communication / Plan
-
`
Assessment / Plan
-
Patient is a 69 yo F p/w acute mesenteric ischemia
POD #19 status post diagnostic laparoscopy with bowel edema, but no advanced/irreversible ischemia
POD #19 status post angiogram, angioplasty and SMA stent placement
Afebrile
Intermittent leukocytosis
Variable degrees of intermittent abdominal pain/cramping and loose stools but seems to be taking in adequate p.o. intake to support baseline nutritional and hydration needs.
Follow-up CT angio abdomen/pelvis reviewed. Stent appears patent with good flow via SMA. Terminal ileal reactive wall thickening and inflammation continues to progressively improve with each CT scan she has had post revascularization.
No strong surgical indications for any intervention and given objective improvement on each successive CT scan advised patient that we are comfortable with her discharge from a surgical perspective
Plan:
--Maintain low residue diet with protein supplements BID
-- ABX as per ID
-- Witch kodak and sitz baths for hemorrhoids
Outpatient surgical follow-up with Dr. Chaudhari 2 to 3 weeks
Subjective Data
-
Date of Service: August 05, 2025
Patient seen and examined. at bedside.
Discussed with infectious disease, discussed with hospitalist
Patient had decent night without significant abdominal pain.
No nausea
Multiple loose bowel movements continue
Objective Data
-
Intake and Output
08/04/25 08/05/25 08/06/25
06:59 06:59 06:59
Intake Total 2149 / 0 3020 / 3020
Output Total 3000 / 3000
Balance 2149 / 2149
Intake:
Oral fluids 2099 / 2099 1959 / 1959
IV fluids (Total) 960 / 960
IV piggybacks 50 / 50 100 / 100
Output:
Urine, Voided 3000 / 3000
Other:
How many times incontinent 4
MODERATE amount urine
Number of approximated MODERATE 10
amounts of urine
Number of approximated LARGE 5
amounts of urine
Number of unmeasured liquid
stools
Rectum 6
Vital Signs
Temp Pulse Resp BP Pulse Ox
99.2 F 88 18 118/76 99
08/05/25 07:30 08/05/25 07:30 08/05/25 07:30 08/05/25 07:30 08/05/25 07:30
Lab Results
08/05/25 06:24
08/05/25 06:24
Calcium 8.3 mg/dl (8.4-10.2) L 08/05/25 06:24
Phosphorus 3.4 mg/dl (2.5-4.5) 08/02/25 04:26
Magnesium 1.9 mg/dl (1.6-2.3) 08/02/25 04:26
Total Bilirubin 0.3 mg/dl (0.2-1.3) 07/26/25 05:02
Direct Bilirubin 0.7 mg/dl (0.0-0.4) H 07/16/25 15:10
AST 18 U/L (14-36) 07/26/25 05:02
ALT 14 U/L (0-35) 07/26/25 05:02
Alkaline Phosphatase 47 U/L (38-126) 07/26/25 05:02
Total Protein 4.8 g/dl (6.3-8.2) L 07/26/25 05:02
Albumin 2.5 g/dl (3.5-5.0) L 07/26/25 05:02
Physical Exam
-
NAD AAO x 3
Sitting up comfortably in chair
ABD: soft, nondistended, nontender
[2025-08-05] MEDS: KLOR-CON PO (09:46)
--- NOTE | 2025-08-05 10:02 | W.PN.HOSP.TC ---
Today's Communication/Plan
-
dc
Assessment / Plan
Assessment / Plan
Physical Exam
General: No acute distress,
HEENT: Normocephalic, Atraumatic, EOMI, MMM
Respiratory: Clear to Auscultation bilaterally
Cardiac: Normal S1/S2, RRR
GI: Soft, not distended, denies tenderness. Incisions clean/dry/intact
Extremities: No Clubbing, Cyanosis
Improving LE edema noted
Neuro: AAOX3, followed commands. Non focal.
Psych : calm
HPI: 69y F with PMH significant for s/p BioAVR, post-op CVA and subsequent hospitalization for CHF who presents to ED complaining of N/V/D since last PM.
Assessment/plan:
#Sepsis POA, resolved.
- Lactic acidosis resolved.
- Stool studies positive for C. difficile antigen, negative for toxin
- Appreciate ID input, Zosyn completed on 07/26, Zosyn resumed on 07/29 and completed on 08/05. Residual of distal ileitis seems c/w ischemic changes. Last CT showed improvement, absence of abdominal pain on exam, she is tolerating diet.
- Continue oral vancomycin as per ID for an additional 7 days.
#Severe acute small bowel ischemia secondary to complete occlusion of the SMA artery with severe underlying PAD
- Appreciate vascular surgery input, s/p emergent intravascular lithotripsy to SMA + balloon angioplasty and stenting of proximal SMA 07/16
- Was on carb controlled diet status post TPN, but had abd pain 07/29
- 07/29 CT abd/pel with persistent terminal ileitis but improving and over a shorter segment than previous imaging
- Appreciate general surgery input, recommend full liquid diet with protein supplements twice daily, with eventual transition to simple dietary foods (low fat, low fiber, simple carbs and proteins) but not yet ready
- Started Bentyl & gas X prn, continue Eliquis and Plavix
#Change in mental status on 07/21, resolved
#Adrenal insufficiency
#Hyponatremia
After ruling out hemodynamic instability, code stroke was called. Stroke was ruled out by examination and imaging studies
Toxic metabolic encephalopathy secondary to combination of adrenal insufficiency, metabolic imbalance and Dilaudid use
Back on daily dose of hydrocortisone.
PMH: Panhypopituitarism/ Adrenal Insufficiency
#Hemorrhagic shock
- Resolved
#Acute urinary retention
Resolved.
#Episode of SVT
Seen by cardiology, who recommends continuing her beta-keanu, they have signed off
# Worsening anemia, due to sepsis, acute blood loss, and anemia of chronic disease
- Appreciate hematology input, due to sepsis, acute blood loss, mild hemolysis, and anemia of chronic disease
- Status post 4 units packed red blood cells, 2 units of FFP on 07/16
- Monitor hemoglobin, transfuse as needed
#Hypomagnesemia
#Hypokalemia
replaced oral & IV
dc on oral KCl.
#Hypophosphatemia
Replaced.
#Coffee-ground emesis, resolved, tolerating oral intake.
- Started on Protonix 40 mg IV twice daily, changed to oral QD.
#Paroxysmal Atrial Fibrillation with rapid ventricular response
Controlled, c/w BB, Eliquis.
Aortic Stenosis s/p BioAVR
Mild acute on Chronic HFpEF
- Resume Farxiga upon dc
Lasix was increased to 80, low BP, holding lisinopril upon discharge
- Resolved status post Lasix 80 mg IV twice daily, continue oral Lasix 80 mg p.o. daily
S/p CVA
- CVA POD #1 after AVR. Transferred to [place] for TC[facility].
- No new neurologic deficits.
- Continue Plavix
PANTERA
- Likely due to dehydration +/- Bactrim use / med effect
Resolved
Prolonged QTc with RBBB.
Mild
Hypothyroidism
- Continue current T4 replacement
DM-II
Back on metformin, Farxiga upon discharge.
Frequent UTIs
Back on Methenamine.
DVT Prophylaxis: Eliquis
Code Status: Full
Dispo - PT rec SNF - [facility]
Total discharge time spent to see the patient on the floor, examine the patient, review data and lab results, discuss discharge plan with patient, consultants, case finishing machine adjuster, nursing staff around 67 minutes.
Anticipated Discharge: Today
Subjective/Interval History
-
Date of Service: August 05, 2025
No chest pain
No abdominal pain
Objective Data
-
Labs:
Laboratory Results
08/05/25
06:24
WBC 11.9 H
Hgb 8.7 L
Hct 27.7 L
Plt Count 358
Sodium 136
Potassium 3.6 D
Chloride 104
Carbon Dioxide 28
BUN 3 L
Creatinine 0.5 L
Glucose 81
Calcium 8.3 L
Vital Signs:
Vital Signs
Temp Pulse Resp BP Pulse Ox
99.2 F 88 18 118/76 99
08/05/25 07:30 08/05/25 09:40 08/05/25 07:30 08/05/25 09:40 08/05/25 07:30
I&O
08/04/25 08/05/25 08/06/25
06:59 06:59 06:59
Intake Total 0 / 0 3020 / 3020
Output Total 3000 / 3000
Balance 0 / 2149
--- NOTE | 2025-08-05 11:01 | CM ---
Addendum entered by Arianna Shetty RN 08/05/25 13:35:
Received CM consult for VN homecare. Spoke with the patient at the bedside. Per patient, she can restart cardiac rehab as soon as Saturday. No VN needs.
Original Note:
Reviewed the chart notes. IMM reviewed. Patient for discharge today to home with plan for resumption of outpatient cardiac rehab. Patient's spouse to provide transportation. CM continues to be available to patient/family and is monitoring
medical plan for needs at discharge.
Plan: Discharge to home today.
[2025-08-05 11:50] VITALS: BP 136/74
--- NOTE | 2025-08-05 11:52 | VNURNOTE ---
Confirmed with patient and spouse plan is to resume cardiac rehab once DC'ed. Liaison explained that she will not receive VN due to plans for outpt. Patient and spouse verbalized understanding and are agreeable. [facility] Int[facility] updated.
[2025-08-05 12:07] LABS: Glucose - Point of Care 232 mg/dl (70-99)
[2025-08-05] MEDS: NOVOLOG FLEXPEN-LOW RESISTANCE 2 UNITS SC (12:45)
[2025-08-05 15:10] VITALS: BP 131/73
--- NOTE | 2025-08-05 16:02 | W.DCSUMMARY ---
Discharge Summary
Discharge Data
Date of Admission: 07/11/25
Date of Discharge: 08/05/25
-
Pending Results: No
Hospital Course
69 years old female with past medical history significant for aortic valve replacement, CVA, carotid artery disease, diabetes presented to the hospital with abdominal discomfort. Patient developed nausea vomiting at home. She reported she had
urinary symptoms and was given Bactrim by her primary care doctor. Emergency noncontrast scanning of the abdomen and pelvis showed cholelithiasis, no biliary tract dilatation, no free air. Patient was admitted for treatment of acute
gastroenteritis, she was also noted to have acute kidney injury with lactic acidosis. Patient was put on bowel rest with intravenous fluid, intravenous antibiotics. Patient was evaluated by gastroenterology and felt that she had sepsis from an
acute etiology but most likely GI tract. She continued to have vomiting and nasogastric tube was placed. Patient had stool study that was positive for C. difficile antigen without toxin. ID doctor was consulted and recommended to continue with
intravenous antibiotic and to add vancomycin enema. Patient did not have good clinical improvement. She was transferred to higher level care and after improvement of renal function.a repeat CT study with contrast was ordered. CAT scan showed
severe acute small bowel ischemia with pneumatosis and complete occlusion of the superior mesenteric artery in addition to severe calcific atherosclerotic plaque in the abdominal aorta and iliac arteries. General surgery and vascular surgery were
consulted. Patient underwent angiogram, angioplasty and superior mesenteric artery stent placement. Patient did not need bowel resection as she did not have significant ischemia or necrosis upon diagnostic laparoscopy. Patient was admitted to
intensive care unit after procedure. She received intravenous heparin with Plavix therapy. She was maintained on intravenous antibiotic. Patient was given blood transfusion and fresh frozen plasma postoperatively. She was followed by multiple
consultants and subsequently she was transferred out of ICU. She had regular blood work and subsequent CAT scan to monitor progress of ischemic bowel. She was maintained on antiplatelet therapy with Eliquis therapy. Bowel recovery was slow but
patient started to feel better with resolution of abdominal pain. White count went back to normal and went back up but no evidence of recurrent infection. Surgery did CAT scan with angiogram that showed improvement with patent stent. ID doctor
recommended to finish oral vancomycin therapy after discharge. Patient finished intravenous antibiotic while in the hospital. Patient was given citrus dose of corticosteroid while critically ill to avoid adrenal crisis. She was followed by
cardiology for adjustment of her cardiac medications. Patient remained hemodynamically stable. Physical therapy evaluated the patient she was ambulating with assistance of walker independently and around the hallways without dizziness or shortness
of breath. Patient was discharged home in a stable condition. Patient was given clearance to resume cardiac rehab.
Discharge Plan
-
Patient Disposition: Home (Routine Discharge)
Discharge Diagnosis/Procedures: Acute superior mesenteric artery occlusion with severe acute small bowel ischemia/pneumatosis/sepsis/Terminal ileitis.
- s/p intravascular lithotripsy to SMA calcified stenosis/occlusion (07/16/2025).
Maintain low residue diet with protein supplements BID
Finsihed cours eof IV antibiotic.
Continue with Witch kodak and sitz baths for hemorrhoids
Continue enteral vancomycin (d#22) for an additional 7 days.
Outpatient surgical follow-up with Dr. Chaudhari 2 to 3 weeks
-Acute blood loss anemia status post transfusion
Electrolyte imbalance, resolved-
-s/p bio AVR for aortic stenosis
-History of CVA/carotid disease
-Hypothyroidism
-GI bleed
-Leukocytosis
-C. difficile antigen (+) / toxin (-) (07/12/25)
-Aortic Stenosis
-Hypertension
-HFpEF
-Paroxysmal Atrial Fibrillation
-DM-II
-Panhypopituitarism (Rathke's Cleft Cyst)/ Adrenal Insufficiency
-Hypothyroidism
-History of UTIs
-Diverticular Disease
Additional Diets: low residue diet with protein supplements BID
Activity Restrictions/Additional Instructions:
Wound Care Instructions
Distal sternal wound-clean with saline, small silicone foam, change q 3 days and prn drainage.
perineum: wash with soap and water, barrier cream bid and prn soilage
Follow up with surgeon
Referrals:
Mani Chaudhari MD [Active, Surgical] - in two to three weeks
Kavitha Escalera MD [Family Provider, Family Practice]
Prescriptions:
New
dicyclomine 10 mg Capsule
20 mg PO QIDPRN PRN (Reason: abdominal pain) Qty: 20 0RF
furosemide 80 mg Tablet
80 mg PO DAILY Qty: 30 0RF
potassium chloride [K-Tab] 20 mEq tablet extended release
20 meq PO DAILY Qty: 30 0RF
vancomycin 125 mg capsule
125 mg PO QID Qty: 42 0RF
Continued
hydrocortisone 10 mg Tablet
20 mg PO DAILY
levothyroxine [Synthroid] 75 mcg Tablet
75 mcg PO DAILY
pantoprazole 40 mg tablet,delayed release (DR/EC)
40 mg PO DAILY
sennosides [senna] 8.6 mg Tablet
8.6 mg PO BID PRN (Reason: constipation)
acetaminophen 325 mg Tablet
650 mg PO Q4HPRN PRN (Reason: headache, pain, fever) Qty: 0 0RF
apixaban 5 mg tablet
5 mg PO BID Qty: 60 2RF
metoprolol succinate 25 mg Tablet Extended Release 24 Hr
25 mg PO BID Qty: 60 2RF
multivitamin Tablet
1 tab PO DAILY Qty: 0 0RF
metformin 500 mg Tablet
500 mg PO BID@0800,1700 Qty: 60 0RF
clopidogrel 75 mg Tablet
75 mg PO DAILY Qty: 0 0RF
methenamine hippurate 1 gram tablet
1 g PO BID Qty: 30 0RF
rosuvastatin 20 mg Tablet
20 mg PO DAILY Qty: 0 0RF
dapagliflozin propanediol [Farxiga] 10 mg Tablet
10 mg PO DAILY Qty: 30 0RF
Discontinued
furosemide 20 mg Tablet
20 mg PO DAILY
lisinopril 5 mg tablet
10 mg PO DAILY
(DME) Contour Next Test Strips Strip
Qty: 100 1RF
Rx Instructions:
Test 2 times per day, As Directed, fasting and alternate 2 hours after a meal
(DME) lancets [Color Lancets] 21 gauge Misc
Qty: 100 1RF
Rx Instructions:
Test 2 times per day, As Directed, fasting and 2 hours alternating after a meal
Discharge Orders:
Discharge Patient (As Directed); Ordered 08/05/25
Ordered By: Jenni Ngo
Discharge Date and Time
Print Language: ITALIAN
== END 2025-08-05 16:44 | disposition home or self-care (01) | DRG 853 ==
LOC: 2 NORTH 21:49
PROVIDERS: Family Medicine; Internal Medicine; Nurse Practitioner Acute Care; Nurse Practitioner Adult Health; Nurse Practitioner Family; Nurse Practitioner Gerontology; Nurse Practitioner Primary Care; Radiology Diagnostic Radiology; Surgery; ADMITTING PHYSICIAN Hospitalist; ATTENDING PHYSICIAN Internal Medicine; CONSULT PHYSICIAN Internal Medicine; CONSULT PHYSICIAN Internal Medicine Cardiovascular Disease; CONSULT PHYSICIAN Internal Medicine Critical Care Medicine; CONSULT PHYSICIAN Internal Medicine Infectious Disease; CONSULT PHYSICIAN Surgery; CONSULT PHYSICIAN Surgery Vascular Surgery; EMERGENCY PHYSICIAN Emergency Medicine; FAMILY PHYSICIAN Family Medicine; OTHER PHYSICIAN Internal Medicine Hematology & Oncology; OTHER PHYSICIAN Psychiatry & Neurology Neurology
PROC: 0D9670Z Drainage of Stomach with Drainage Device, Via Natural or Artificial Opening (ICD-10-PCS; 2025-07-12)
PROC: 04FY3ZZ Fragmentation of Lower Artery, Percutaneous Approach (ICD-10-PCS; 2025-07-16)
PROC: B4141ZZ Fluoroscopy of Superior Mesenteric Artery using Low Osmolar Contrast (ICD-10-PCS; 2025-07-16)
PROC: 047 Lower Arteries, Dilation (ICD-10-PCS; 2025-07-16)
PROC: 30233N1 Transfusion of Nonautologous Red Blood Cells into Peripheral Vein, Percutaneous Approach (ICD-10-PCS; 2025-07-16)
PROC: B4101ZZ Fluoroscopy of Abdominal Aorta using Low Osmolar Contrast (ICD-10-PCS; 2025-07-16)
PROC: 30233K1 Transfusion of Nonautologous Frozen Plasma into Peripheral Vein, Percutaneous Approach (ICD-10-PCS; 2025-07-16)
PROC: 0DJD4ZZ Inspection of Lower Intestinal Tract, Percutaneous Endoscopic Approach (ICD-10-PCS; 2025-07-16)
PROC: 3E0436Z Introduction of Nutritional Substance into Central Vein, Percutaneous Approach (ICD-10-PCS; 2025-07-21)
PROC: 02HV33Z Insertion of Infusion Device into Superior Vena Cava, Percutaneous Approach (ICD-10-PCS; 2025-07-21)
DX: A41.9 Sepsis, unspecified organism (principal); G92.8 Other toxic encephalopathy; K55.019 Acute (reversible) ischemia of small intestine, extent unspecified; R57.8 Other shock; K55.069 Acute infarction of intestine, part and extent unspecified; I50.33 Acute on chronic diastolic (congestive) heart failure; N17.9 Acute kidney failure, unspecified; E23.0 Hypopituitarism; E27.40 Unspecified adrenocortical insufficiency; E87.20 Acidosis, unspecified; D62 Acute posthemorrhagic anemia; E87.1 Hypo-osmolality and hyponatremia; A04.72 Enterocolitis due to Clostridium difficile, not specified as recurrent; K50.00 Crohn's disease of small intestine without complications; I49.3 Ventricular premature depolarization; I45.10 Unspecified right bundle-branch block; E86.1 Hypovolemia; F17.200 Nicotine dependence, unspecified, uncomplicated; E03.9 Hypothyroidism, unspecified; D63.8 Anemia in other chronic diseases classified elsewhere; I48.0 Paroxysmal atrial fibrillation; E83.42 Hypomagnesemia; E87.6 Hypokalemia; E11.649 Type 2 diabetes mellitus with hypoglycemia without coma; E78.00 Pure hypercholesterolemia, unspecified; E83.39 Other disorders of phosphorus metabolism; I11.0 Hypertensive heart disease with heart failure; K80.20 Calculus of gallbladder without cholecystitis without obstruction; K63.89 Other specified diseases of intestine; I70.0 Atherosclerosis of aorta; R33.9 Retention of urine, unspecified; Z87.440 Personal history of urinary (tract) infections; Z95.3 Presence of xenogenic heart valve; Z95.820 Peripheral vascular angioplasty status with implants and grafts; Z79.890 Hormone replacement therapy; Z79.01 Long term (current) use of anticoagulants; Z79.02 Long term (current) use of antithrombotics/antiplatelets; Z79.899 Other long term (current) drug therapy; Z86.73 Personal history of transient ischemic attack (TIA), and cerebral infarction without residual deficits; Z87.19 Personal history of other diseases of the digestive system; Z90.49 Acquired absence of other specified parts of digestive tract; Z86.0100 Personal history of colon polyps, unspecified; Z79.84 Long term (current) use of oral hypoglycemic drugs; Z80.1 Family history of malignant neoplasm of trachea, bronchus and lung; Z80.8 Family history of malignant neoplasm of other organs or systems; Z83.3 Family history of diabetes mellitus
CPT/HCPCS: 0042T; 36245; 37236; 70450; 70496; 70498; 71045; 74018; 74174; 74176; 74177; 75726; 80048; 80053; 80076; 81003; 81015; 82533; 82607; 82728; 82746; 82805; 82962; 83010; 83036; 83540; 83550; 83605; 83615; 83690; 83735; 84100; 84439; 84443; 84478; 84484; 85014; 85018; 85025; 85027; 85045; 85384; 85520; 85525; 85598; 85610; 85613; 85670; 85730; 86146; 86147; 86850; 86880; 86900; 86901; 86920; 86922; 86927; 87040; 87045; 87046; 87324; 87328; 87329; 87427; 87449; 87798; 89055; 93005; 96361; 96374; 97116; 97163; 97167; 97530; 97535; 99291; C1769; C1874; C1894; P9016; P9059; Q9967

== ENCOUNTER 2025-09-03 16:07 | Outpatient (RCR) | payer MEDICARE, SELFPAY ==
[2025-08-09 15:15] LABS: Glucose - Point of Care 208 mg/dl (70-99)
[2025-08-09 15:32] LABS: Glucose - Point of Care 191 mg/dl (70-99)
[2025-08-11 14:51] LABS: Glucose - Point of Care 191 mg/dl (70-99)
[2025-08-11 15:33] LABS: Glucose - Point of Care 168 mg/dl (70-99)
[2025-08-13 14:41] LABS: Glucose - Point of Care 215 mg/dl (70-99)
[2025-08-13 15:29] LABS: Glucose - Point of Care 146 mg/dl (70-99)
[2025-08-16 15:03] LABS: Glucose - Point of Care 241 mg/dl (70-99)
[2025-08-16 15:56] LABS: Glucose - Point of Care 199 mg/dl (70-99)
[2025-08-18 14:56] LABS: Glucose - Point of Care 261 mg/dl (70-99)
[2025-08-18 15:42] LABS: Glucose - Point of Care 232 mg/dl (70-99)
[2025-08-20 14:47] LABS: Glucose - Point of Care 253 mg/dl (70-99)
[2025-08-20 15:06] LABS: Glucose - Point of Care 230 mg/dl (70-99)
[2025-08-23 14:47] LABS: Glucose - Point of Care 216 mg/dl (70-99)
[2025-08-23 15:31] LABS: Glucose - Point of Care 199 mg/dl (70-99)
[2025-08-25 14:55] LABS: Glucose - Point of Care 196 mg/dl (70-99)
[2025-08-25 15:34] LABS: Glucose - Point of Care 222 mg/dl (70-99)
[2025-08-27 14:40] LABS: Glucose - Point of Care 229 mg/dl (70-99)
[2025-08-27 15:32] LABS: Glucose - Point of Care 189 mg/dl (70-99)
[2025-08-30 14:56] LABS: Glucose - Point of Care 175 mg/dl (70-99)
[2025-08-30 15:37] LABS: Glucose - Point of Care 195 mg/dl (70-99)
[2025-09-03 14:40] LABS: Glucose - Point of Care 213 mg/dl (70-99)
[2025-09-03 15:21] LABS: Glucose - Point of Care 203 mg/dl (70-99)
== END 2025-09-03 23:59 | disposition home or self-care (01) ==
LOC: CRHB 16:07
PROVIDERS: ATTENDING PHYSICIAN Thoracic Surgery (Cardiothoracic Vascular Surgery)
DX: Z95.2 Presence of prosthetic heart valve (principal)
CPT/HCPCS: 82962; G0422; G0423

== ENCOUNTER → 2025-09-21 06:57 | Outpatient (REF) | payer MEDICARE, SELFPAY | LOC: RAD 06:57 | PROVIDERS: ATTENDING PHYSICIAN Registered Nurse; FAMILY PHYSICIAN Family Medicine | DX: K55.1 Chronic vascular disorders of intestine (principal) | CPT/HCPCS: 93975 ==

== ENCOUNTER 2025-10-01 15:25 | Outpatient (RCR) | payer MEDICARE, SELFPAY ==
[2025-09-06 14:39] LABS: Glucose - Point of Care 309 mg/dl (70-99)
[2025-09-08 14:51] LABS: Glucose - Point of Care 179 mg/dl (70-99)
[2025-09-08 15:33] LABS: Glucose - Point of Care 186 mg/dl (70-99)
[2025-09-10 14:45] LABS: Glucose - Point of Care 259 mg/dl (70-99)
[2025-09-10 15:22] LABS: Glucose - Point of Care 212 mg/dl (70-99)
[2025-09-15 14:51] LABS: Glucose - Point of Care 240 mg/dl (70-99)
[2025-09-15 15:41] LABS: Glucose - Point of Care 192 mg/dl (70-99)
[2025-09-17 14:49] LABS: Glucose - Point of Care 169 mg/dl (70-99)
[2025-09-17 15:24] LABS: Glucose - Point of Care 159 mg/dl (70-99)
[2025-09-20 14:53] LABS: Glucose - Point of Care 211 mg/dl (70-99)
[2025-09-20 15:38] LABS: Glucose - Point of Care 176 mg/dl (70-99)
[2025-09-24 14:46] LABS: Glucose - Point of Care 166 mg/dl (70-99)
[2025-09-24 15:35] LABS: Glucose - Point of Care 167 mg/dl (70-99)
[2025-09-28 10:02] LABS: HDL Cholesterol 48 mg/dl; LDL Cholesterol, Calculated 35 mg/dl; Very Low Density Lipoprotein 23 mg/dl (0-30)
[2025-09-29 14:53] LABS: Glucose - Point of Care 159 mg/dl (70-99)
[2025-09-29 15:40] LABS: Glucose - Point of Care 164 mg/dl (70-99)
== END 2025-10-01 23:59 | disposition home or self-care (01) ==
LOC: CRHB 15:25
PROVIDERS: ATTENDING PHYSICIAN Internal Medicine; FAMILY PHYSICIAN Family Medicine
DX: Z95.2 Presence of prosthetic heart valve (principal)
CPT/HCPCS: 36415; 80061; 82962; 93005; G0422; G0423

== ENCOUNTER 2025-11-01 16:29 | Outpatient (RCR) | payer MEDICARE, SELFPAY ==
[2025-10-04 14:59] LABS: Glucose - Point of Care 188 mg/dl (70-99)
[2025-10-04 15:39] LABS: Glucose - Point of Care 145 mg/dl (70-99)
== END 2025-11-01 23:59 | disposition home or self-care (01) ==
LOC: CRHB 16:29
PROVIDERS: ATTENDING PHYSICIAN Internal Medicine; FAMILY PHYSICIAN Family Medicine
DX: Z95.2 Presence of prosthetic heart valve (principal)
CPT/HCPCS: 82962; G0422; G0423